=== PATIENT | female | born 1940 | race Caucasian/White ===

== ENCOUNTER → 2017-06-23 11:36 | Outpatient (CLI) | payer MEDICARE, OTHER, SELFPAY ==
[2017-06-23 12:51] LABS: Hematocrit 37.4 % (37-47); Mean Corp Hgb Conc 32.1 g/gl (32-36); Mean Corpuscular Hgb 29.6 pg (27.0-32.0); Mean Corpuscular Volume 92.1 fL (81-99); Mean Platelet Vol. 9.9 fl (6.2-12.0); Platelet Count 216 K/mm3 (150-450); RBC Distribution Width CV 12.8 % (11.6-14.6); RBC Distribution Width SD 42.2 fl (35.1-43.9); Red Blood Count 4.06 M/mm3 (4.2-5.4)
[2017-06-23 12:56] LABS: Scan Indicated on CBC? Y/N NO
[2017-06-28 03:07] LABS: Alternaria alternata <0.10 kU/L (Class 0); Bermuda Grass <0.10 kU/L (Class 0); Bluegrass, Kentucky <0.10 kU/L (Class 0); Cat Hair/Dander, Standard <0.10 kU/L (Class 0); D farinae Mite <0.10 kU/L (Class 0); D pteronyssinus <0.10 kU/L (Class 0); Dog Epithelia <0.10 kU/L (Class 0); Elm, American White <0.10 kU/L (Class 0); Oak, White <0.10 kU/L (Class 0); Plantain, English <0.10 kU/L (Class 0); Ragweed, Short/Common <0.10 kU/L (Class 0)
[2017-06-28 05:07] LABS: Aspirgillus flavus Negative (Neg:<1:1); Aspirgillus fumigatus Negative (Neg:<1:1); Aspirgillus niger Negative (Neg:<1:1)
[2017-06-28 10:27] LABS: Mouse Urine <0.10 kU/L (Class 0)
[2017-06-28 11:04] LABS: Immunoglobulin E 121 IU/mL (0-100)
== END ==
PROVIDERS: Family Provider Family Medicine; PCP Family Medicine; Visit Provider Nurse Practitioner Acute Care
DX: J40 Bronchitis, not specified as acute or chronic (principal); R06.02 Shortness of breath; R05 Cough
CPT/HCPCS: 36415; 82785; 85027; 86003; 86606

== ENCOUNTER 2018-05-03 16:09 | Inpatient (IN) | payer MEDICARE, OTHER, SELFPAY ==
[2018-04-28 10:35] VITALS: BMI 40.5
[2018-05-03] VITALS (10 sets, daily range): BP systolic 157–181; BP diastolic 68–107; PULSE 67–85; RESP 14–24; TEMP 36.6–37.1; O2SAT 95–99; BMI 40.6; BMI 40.1; BMI 40.2
--- NOTE | 2018-05-03 17:12 | RAD_ITS ---
STUDY: X-RAY CHEST REASON FOR EXAM: Female, 77 years old. Cough TECHNIQUE: PA and lateral views of the chest. COMPARISON: 03/29/2016 FINDINGS: EKG leads overlie the chest stable appearance of a left subclavian pacemaker The lungs are clear and expanded. There is no demonstrated pleural abnormality. Normal size heart. Normal mediastinum and massiel. Normal visualized pulmonary arteries. Normal visualized aortic arch and descending thoracic aorta. There are diffuse degenerative changes of the visualized thoracic spine. Normal visualized ribs, clavicles, and shoulders. There is no demonstrated abnormality of the visualized soft tissue structures of the upper abdomen. RAD/Chest PA and Lateral IMPRESSION: No acute pulmonary process Electronically Signed: Myles Nichole MD at 19:20 EST , Service support ,
--- NOTE | 2018-05-03 17:12 | EKG12_ITS ---
Test Reason : SOB Blood Pressure : / mmHG Vent. Rate : 060 BPM Atrial Rate : 300 BPM P-R Int : 212 ms QRS Dur : 090 ms QT Int : 410 ms P-R-T Axes : -22 -27 030 degrees QTc Int : 410 ms Atrial-paced rhythm with prolonged AV conduction Voltage criteria for left ventricular hypertrophy Abnormal ECG Confirmed by CHACORTA WORKMAN, PER ([id number]), managing editor DARREN SEE ([id number] on 05/05/2018 2:26:07 PM Referred By: NIHARIKA Confirmed By:PER WHATLEY MD
[2018-05-03] MEDS: Ipratropium/Albuterol Sulfate 3 ML AMPUL.NEB INHALATION ×2 (17:32→23:35)
[2018-05-03] MEDS: Albuterol 2.5 MG/3 ML VIAL.NEB. INHALATION ×3 (17:32→20:25)
[2018-05-03 17:48] LABS: Anion Gap 9 (5-15); BUN 21 mg/dL (7-18); BUN/Creat Ratio 26.2 RATIO (10-20); Chloride 101 mmol/L (98-107); EST Glomerular Filtration Rate 74 mL/min (>60); Est Glom Filt Rate - Afr Amer 90 mL/min (>60); Estimated Creatinine Clearance 56.88 ml/min; Glucose 121 mg/dL (74-106); Potassium 4.1 mmol/L (3.5-5.1); Sodium Level 137 mmol/L (136-145)
[2018-05-03] MEDS: MethylPREDNISolone 125 MG/2 ML Vial IV (18:48)
[2018-05-03 19:01] LABS: Absolute Neutrophil Count 5.2 X10^3/uL (2.0-7.7); Basophil# 0.02 X10^3/uL; Basophil% 0.3 % (0-1); Hematocrit 38.5 % (37-47); Hemoglobin 12.3 g/dl (12.0-15.0); Lymphocyte % 13.7 % (19-41); Mean Corp Hgb Conc 31.9 g/gl (32-36); Mean Corpuscular Hgb 29.4 pg (27.0-32.0); Mean Corpuscular Volume 92.1 fL (81-99); Mean Platelet Vol. 9.7 fl (6.2-12.0); Monocyte# 0.37 X10^3/uL; Monocyte% 5.6 % (0-10); Neutrophil # 5.23 X10^3/uL (2.7-7.7); Neutrophil % 79.3 % (47-70); POSITIVE COUNT NO; POSITIVE DIFFERENTIAL NO; POSITIVE MORPHOLOGY NO; Platelet Count 193 K/mm3 (150-450); RBC Distribution Width CV 13.2 % (11.6-14.6); RBC Distribution Width SD 43.5 fl (35.1-43.9); Red Blood Count 4.18 M/mm3 (4.2-5.4); White Blood Count 6.6 K/mm3 (4.4-11.0)
--- NOTE | 2018-05-03 20:11 | ED.DCSUM_ITS ---
- ER Visit Summary Date of Service: 05/03/18 Chief Complaint: Cold symptoms, back pain History of Present Illness: The patient is a 77 F with URI symptoms for the past week. She was seen by her PCP last Tuesday given prednisone and Augmentin. She finished the prednisone today. She is using her inhaler every 4 hours. States she is now developed right shoulder pain whenever she coughs and continues to feel quite short of breath with wheezing. She brings up mild sputum with her cough. She denies fever or chills. Physical Examination: Blood pressure is 171/103, otherwise vitals normal. Patient sitting upright in bed. Head neck examination grossly unremarkable. Heart is regular. Lung sounds with expiratory wheezes and rales throughout. Abdomen is soft nontender. Lower external examination was 2+ bilateral edema that is symmetric. Test Results: Two-view chest x-ray shows no acute process. EKG is paced at [address] change. CBC normal. Chemistry studies unremarkable. Emergency Department Course and Treatment: Patient is given Solu-Medrol cycle of aerosols. On repeat evaluation she has continued wheezes and rales/rhonchi throughout. At this time she will require admission for [id number] breathing treatments and steroids. I did review a previous visit when she had similar symptoms and did well with Levaquin. She will be given a dose of p.o. Levaquin at this time as well. Treatment Plan: [] Disposition: Admit Impression: Bronchitis with asthma exacerbation This note was generated with [employer] dictation software. It may contain incorrect words, spelling, and punctuation that were not noted in review of the chart prior to signing ED Disposition - Plan for ED Patient: Chief Complaint: Cold Sx Referrals: Gil Wiseman MD [Primary Care Provider] -
--- NOTE | 2018-05-03 20:33 | PCM.HP.STD ---
Problem List (1) Acute asthma exacerbation Status: Acute Qualifiers: Asthma severity: moderate Asthma persistence: persistent Qualified Code(s): J45.41 - Moderate persistent asthma with (acute) exacerbation History of Present Illness Date of Admission: 05/03/18 Chief Complaint: Cold symptoms and wheezing The patient is a 77 year old F who presented with 9-day history of cold symptoms and wheezing. Patient reports chest congestion. She saw her PCP and she was given prednisone. She used the last day of the prednisone on the morning of her admission. Also patient stated that she was given amoxicillin that she is taking 5 out 10 days. She reports that amoxicillin was given for sinusitis. Associated with her symptoms is a postnasal drip; rhinorrhea; productive cough with yellow thick sputum. Also patient has shortness of breath with exertion. 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 Past Medical History Past Medical History (Chronic Problems): Chronic Problems (Last Reviewed 05/03/18 @ 23:52 by Saurabh Apple MD) Allergic rhinitis (Chronic) Asthma (Chronic) Sinusitis (Chronic) Medical History: Medical History (Last Reviewed 05/04/18 @ 02:32 by Saurabh Apple MD) Acute asthma exacerbation (Acute) J45.901 Shortness of breath (Acute) R06.02 Bronchitis (Acute) J40 Acute back pain with sciatica M54.40 Bradycardia R00.1 Hemorrhoids K64.9 Postnasal drip R09.82 SVT (supraventricular tachycardia) I47.1 Sick sinus syndrome I49.5 Sinus pain J34.89 Sinusitis J32.9 Asthma J45.909 Cardiac pacemaker in situ Z95.0 Chronic cough R05 Essential hypertension I10 GERD (gastroesophageal reflux disease) K21.9 Hyperlipidemia E78.5 Osteoarthrosis M19.90 Overweight E66.3 Seasonal allergies J30.2 Syncope R55 Vitamin D deficiency E55.9 Allergies grass pollen Allergy (Mild, Verified 05/03/18 16:13) Other - sneezing and congestion mold Allergy (Mild, Verified 05/03/18 16:13) Other - sneezing iodine contrast Allergy (Intermediate, Uncoded 05/03/18 16:13) Other - hypotension sodium pentothal Allergy (Intermediate, Uncoded 05/03/18 16:13) Other - tongue numb ANTIBIOTIC Adverse Reaction (Uncoded 05/03/18 16:13) Upset Stomach Home Medications: Ambulatory Orders Medication Instructions Recorded Albuterol Aerosols [Ventolin 2.5 mg INHALATION Q6HWA.RT 30 Days 03/30/16 Aerosols] vial.neb. cholecalciferol (vitamin D3) 5,000 5,000 unit PO DAILY 05/06/17 unit capsule omeprazole 20 mg capsule,delayed 20 mg PO DAILY 05/06/17 release albuterol sulfate HFA 90 1 - 2 puff INHALATION Q4H PRN PRN 08/31/17 mcg/actuation aerosol inhaler #1 device amoxicillin 875 mg-potassium 1 tab PO BID #20 tab 04/28/18 clavulanate 125 mg tablet Budesonide/Formoterol 160/4.5 2 puff PO BID 05/03/18 [Symbicort 160/4.5 Mcg Inhaler (SP)] Gabapentin [Neurontin] 800 mg PO BID 05/03/18 Lisinopril [Zestril] 10 mg PO DAILY 05/03/18 Oxybutynin Chloride [Ditropan Xl] 10 mg PO DAILY 05/03/18 Prednisone 10 mg PO DAILY 05/03/18 Prednisone 60 mg PO DAILY 05/03/18 Surgical History: Surgical History (Last Reviewed 05/04/18 @ 02:32 by Saurabh Apple MD) History of colonoscopy Z98.890 w/ or w/o brsh spec History of esophagogastroduodenoscopy (EGD) Z98.890 w/ or w/o brush/ wash 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 S/P placement of cardiac pacemaker Z95.0 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 Total knee replacement status Z96.659 right Surgical History: appendectomy Lives: Spouse/ Significant Other Smoking Status: Never smoker - *Family History Maternal Family History: Family History (Last Reviewed 05/04/18 @ 02:32 by Saurabh Apple MD) Mother Heart disease Hypertension Myocardial infarction Father Heart disease Myocardial infarction Sister Diabetes Heart disease History Items: No pertinent history Paternal Family History: Family History (Last Reviewed 05/04/18 @ 02:32 by Saurabh Apple MD) Mother Heart disease Hypertension Myocardial infarction Father Heart disease Myocardial infarction Sister Diabetes Heart disease History Items: No pertinent history Review of Systems Constitutional: Reports: Anorexia. Denies: Chills, Fever, Weight Change HEENT: Reports: Post Nasal Drip, Sinus Congestion, Sinus Drainage. Denies: Head Aches Cardiovascular: Denies: Chest Pain, Palpitations Respiratory: Reports: Cough, Shortness of breath upon exertion, Sputum production. Denies: Shortness of breath at rest Gastrointestinal: Denies: Abdominal Pain, Nausea, Vomiting Genitourinary: Denies: Dysuria Musculoskeletal: Denies: Joint Pain, Joint Tenderness Skin: Denies: Rash, Wounds Neurological: Denies: Numbness, Tingling, Focal weakness Psychiatric: Denies: Anxiety, Depression, Homicidal Ideations, Suicidal Ideations Hematologic/ Lymphatic: Denies: Easy Bruising, Easy Bleeding VTE Information - Inpt Only VTE Present on Admission: No VTE Mechan Device Prophylaxis: None VTE Pharm Prophylaxis ordered?: Yes - Physical Exam General: Alert, Oriented x3, Cooperative HEENT: Atraumatic, PERRLA, EOMI, Normocephalic Neck: Supple, No JVD, Negative Carotid Bruits Lungs: Rhonchi - Moderate intensity, Tachypneic, Wheezes - Moderate Cardiovascular: No murmurs Abdomen: Bowel Sounds Present, Soft, Non Tender Extremities: No edema, Capillary Refill Less than 3 Seconds Skin: No rashes, No breakdown Musculoskeletal: No Tenderness to Palpation of Joints or Extremities Neurological: Neuro grossly intact Psych/Mental Status: Normal Affect, Appropriate Vital Signs Temp Pulse Resp BP Pulse Ox 97.8 F 76 15 177/82 H 96 05/03/18 19:04 05/03/18 19:04 05/03/18 19:04 05/03/18 19:04 05/03/18 19:04 Oxygen Delivery Method Room Air Weight: 114.305 kg Body Mass Index (BMI) 40.6 Laboratory Tests Past 24 Hrs 05/03/18 05/03/18 17:25 17:25 WBC 6.6 RBC 4.18 L Hgb 12.3 Hct 38.5 MCV 92.1 MCH 29.4 MCHC 31.9 L RDW 13.2 RDW Differential 43.5 Plt Count 193 MPV 9.7 Immature Gran % (Auto) 1.100 H Neut % (Auto) 79.3 H Lymph % (Auto) 13.7 L [place] % (Auto) 5.6 Eos % (Auto) 0.0 Baso % (Auto) 0.3 Absolute Neuts (auto) 5.2 Absolute Lymphs (auto) 0.90 Total Counted Not Reportable Sodium 137 Potassium 4.1 Chloride 101 Carbon Dioxide 27.0 Anion Gap 9 BUN 21 H Creatinine 0.80 Estim Creat Clear Calc 56.88 Est GFR (MDRD) Af Amer 90 Est GFR (MDRD) Non-Af 74 BUN/Creatinine Ratio 26.2 H Glucose 121 H Calcium 9.0 Assessment/Plan All Active Problems (Last Reviewed 05/03/18 @ 23:52 by Saurabh Apple MD) Acute asthma exacerbation (Acute) Shortness of breath (Acute) Bronchitis (Acute) The patient is a 77 year old F who presented with 9-day history of cold symptoms and wheezing after failing outpatient treatment with prednisone; and after taking half course of her outpatient antibiotics consistent with likely asthmatic bronchitis. Acute asthmatic bronchitis Patient received Levaquin at emergency department. We will continue Levaquin at this time. Patient received Solu-Medrol against the emergency department. Solu-Medrol continued. DuoNeb scheduled and albuterol as needed. Continue home inhaled steroids. Flonase ordered. Mucinex ordered. We will order comprehensive respiratory pathogen panel. Incentive spirometer and a cappella ordered. Hypertension On admission her blood pressure was not within goal. Home lisinopril continued Hydralazine as needed. GERD Protonix continued. Overactive bladder Detrol continued Neuropathy Gabapentin continued. Vitamin D deficiency Vitamin D continued. DVT prophylaxis Subcutaneous heparin. Code Visit Inpatient E&M: 90540 Init Hosp L3
[2018-05-03] MEDS: levoFLOXacin 750 MG Tablet PO (20:37)
[2018-05-03] MEDS: Fluticasone 0.05% 1 SPRAY NASAL.SRY NASAL (23:53)
[2018-05-03] MEDS: Heparin Injection (Vial) 5,000 UNIT/ML VIAL 5000 UNIT SC (23:54)
[2018-05-03] MEDS: guaiFENesin 1,200 MG Tablet 1200 MG PO (23:55)
[2018-05-03] MEDS: Gabapentin 400 MG Capsule 800 MG PO (23:55)
[2018-05-04] VITALS (12 sets, daily range): BP systolic 157–168; BP diastolic 67–80; PULSE 71–87; RESP 16–20; TEMP 36.5–37.1; O2SAT 96–97
[2018-05-04] MEDS: Ipratropium/Albuterol Sulfate 3 ML AMPUL.NEB INHALATION ×6 (02:52→23:03)
[2018-05-04 06:41] LABS: Absolute Lymphocyte Count 0.82 X10^3/ul (0.83-4.51); Basophil# 0.01 X10^3/uL; Basophil% 0.2 % (0-1); Hematocrit 36.9 % (37-47); Hemoglobin 11.5 g/dl (12.0-15.0); Lymphocyte # 0.82 X10^3/ul (4.0); Lymphocyte % 13.3 % (19-41); Mean Corp Hgb Conc 31.2 g/gl (32-36); Mean Corpuscular Hgb 28.8 pg (27.0-32.0); Mean Corpuscular Volume 92.5 fL (81-99); Mean Platelet Vol. 9.9 fl (6.2-12.0); Monocyte# 0.25 X10^3/uL; Monocyte% 4.1 % (0-10); Neutrophil # 5.01 X10^3/uL (2.7-7.7); Neutrophil % 81.1 % (47-70); Platelet Count 191 K/mm3 (150-450); RBC Distribution Width CV 13.2 % (11.6-14.6); RBC Distribution Width SD 43.2 fl (35.1-43.9); Red Blood Count 3.99 M/mm3 (4.2-5.4); White Blood Count 6.2 K/mm3 (4.4-11.0)
[2018-05-04 06:46] LABS: POSITIVE COUNT NO; POSITIVE DIFFERENTIAL NO; POSITIVE MORPHOLOGY NO
[2018-05-04 07:14] LABS: Anion Gap 13 (5-15); BUN 18 mg/dL (7-18); BUN/Creat Ratio 19.2 RATIO (10-20); Calcium,Total 9.4 mg/dL (8.5-10.1); Chloride 100 mmol/L (98-107); Creatinine, Serum 0.94 mg/dL (0.55-1.02); EST Glomerular Filtration Rate 62 mL/min (>60); Est Glom Filt Rate - Afr Amer 75 mL/min (>60); Estimated Creatinine Clearance 48.41 ml/min; Glucose 185 mg/dL (74-106); Sodium Level 138 mmol/L (136-145)
[2018-05-04] MEDS: Albuterol 2.5 MG/3 ML VIAL.NEB. INHALATION (09:12)
[2018-05-04] MEDS: Lisinopril 10 MG Tablet PO (10:13)
[2018-05-04] MEDS: Gabapentin 400 MG Capsule 800 MG PO ×2 (10:13→22:07)
[2018-05-04] MEDS: Pantoprazole Sodium 20 MG Tablet PO (10:13)
[2018-05-04] MEDS: Heparin Injection (Vial) 5,000 UNIT/ML VIAL 5000 UNIT SC ×2 (10:13→22:07)
[2018-05-04] MEDS: Tolterodine Tartrate 2 MG CAP.SA PO (10:14)
[2018-05-04] MEDS: guaiFENesin 1,200 MG Tablet 1200 MG PO ×2 (10:14→22:07)
[2018-05-04] MEDS: Fluticasone 0.05% 1 SPRAY NASAL.SRY NASAL ×2 (10:15→22:07)
--- NOTE | 2018-05-04 10:50 | CASEMGMT ---
ADRIANA CM Assessment Presentation: pt presented with 9 day history of cold symptoms and wheezing. Outpt treatment of amoxicillin for sinusitis. PCP: [facility]erred [facility]acy: [facility] Insurance: [facility] A/B Prescription Benefit: yes LNOK: Living Arrangements: Lives with in two story home. Pt states she was independent with ADL's. No Home Health. Denies discharge needs. Transportation: drives DME/HHC: uses cane @ times, has walker DC PLAN: Home
[2018-05-04] MEDS: 0.9% NaCl Peripheral Flush Adult/Peds IV ×2 (13:17→22:12)
--- NOTE | 2018-05-04 14:07 | CHAPLAIN ---
Type of Pastoral Visit _x__ Initial Visit ___ Follow-up Visit ___ On-call Visit ___ General Patient Visit ___ Spiritual Assessment ___ Family Conference ___ Bereavement ___ Rapid Response ___ Code Blue ___ Other (describe below) Pastoral Care Referral From _x__ Patient ___ Family ___ Nurse ___ Physician ___ Riding Coach ___ Jewellery Designer ___ Other (describe below) Sacrament/Intervention _x__ Active listening ___ Anointing ___ Tenriism ___ Bereavement ___ Communion ___ Page exploration ___ _x__ Life review _x__ Prayer ___ Reconciliation ___ Sacrament of Sick _x__ Supportive presence ___ Wedding ___ Other (describe below) Pastoral Comments
--- NOTE | 2018-05-04 16:33 | PN_ITS ---
Subjective: Still having some audible wheezing, she is on room air does not require oxygen at this time - Physical Exam General: Alert, Oriented x3, Cooperative, No apparent distress, Well developed, Well nourished HEENT: Atraumatic, PERRLA, EOMI, Normocephalic Oral: Moist Mucosa Neck: Supple, Trachea Midline, Thyroid Normal Size and Texture Lungs: Normal air movement, No rhonchi, No rales, Wheezes - Expiratory wheezes bilaterally are noted Cardiovascular: Regular rate, Regular Rhythm, Normal S1, Normal S2, No murmurs, No Ectopic Activity, PMI Normal, No rub noted, No Gallop Abdomen: Bowel Sounds Present, Soft, Non Tender, Non-Distended, No hernias noted Extremities: No clubbing, No cyanosis, No edema, Capillary Refill Less than 3 Seconds Skin: No rashes, No breakdown Musculoskeletal: No Tenderness to Palpation of Joints or Extremities Neurological: Cranial nerves II-XII grossly intact, Neuro grossly intact, Sensory exam intact to light touch and pain, Coordination normal Psych/Mental Status: Normal Affect, Appropriate, Alert and oriented to time, place, person, mood and affect Vital Signs Temp Pulse Resp BP Pulse Ox 97.7 F L 71 18 168/71 H 97 05/04/18 14:07 05/04/18 15:21 05/04/18 15:21 05/04/18 14:07 05/04/18 14:07 Oxygen Delivery Method Room Air Weight: 112.9 kg Body Mass Index (BMI) 40.1 Intake and Output for Last 24 Hours 05/02/18 05/03/18 05/04/18 23:59 23:59 23:59 Intake Total 810 / 810 Balance 810 / 810 Microbiology Past 72 Hours 05/03/18 23:35 Respiratory Panel (PCR) - Final Mucosa - Nasopharyngeal Influenza A (Subtype H3) Laboratory Tests Past 24 Hrs 05/03/18 05/03/18 05/04/18 17:25 17:25 06:06 WBC 6.6 6.2 RBC 4.18 L 3.99 L Hgb 12.3 11.5 L Hct 38.5 36.9 L MCV 92.1 92.5 MCH 29.4 28.8 MCHC 31.9 L 31.2 L RDW 13.2 13.2 RDW Differential 43.5 43.2 Plt Count 193 191 MPV 9.7 9.9 Immature Gran % (Auto) 1.100 H 1.300 H Neut % (Auto) 79.3 H 81.1 H Lymph % (Auto) 13.7 L 13.3 L [place] % (Auto) 5.6 4.1 Eos % (Auto) 0.0 0.0 Baso % (Auto) 0.3 0.2 Absolute Neuts (auto) 5.2 5.0 Absolute Lymphs (auto) 0.90 0.82 L Total Counted Not Reportable Not Reportable Sodium 137 Potassium 4.1 Chloride 101 Carbon Dioxide 27.0 Anion Gap 9 BUN 21 H Creatinine 0.80 Estim Creat Clear Calc 56.88 Est GFR (MDRD) Af Amer 90 Est GFR (MDRD) Non-Af 74 BUN/Creatinine Ratio 26.2 H Glucose 121 H Calcium 9.0 05/04/18 06:06 WBC RBC Hgb Hct MCV MCH MCHC RDW RDW Differential Plt Count MPV Immature Gran % (Auto) Neut % (Auto) Lymph % (Auto) [place] % (Auto) Eos % (Auto) Baso % (Auto) Absolute Neuts (auto) Absolute Lymphs (auto) Total Counted Sodium 138 Potassium 4.0 Chloride 100 Carbon Dioxide 25.0 Anion Gap 13 BUN 18 Creatinine 0.94 Estim Creat Clear Calc 48.41 Est GFR (MDRD) Af Amer 75 Est GFR (MDRD) Non-Af 62 BUN/Creatinine Ratio 19.2 Glucose 185 H Calcium 9.4 Medical Necessity - Tobacco Use Smoking Status: Never smoker Assessment/Plan All Active Problems (Last Reviewed 05/04/18 @ 02:32 by Saurabh Apple MD) Acute asthma exacerbation (Acute) Shortness of breath (Acute) Bronchitis (Acute) #1 acute tracheobronchitis secondary to influenza A-continue Tamiflu, continue aerosol treatments, IV corticosteroids, I will change Levaquin to p.o. #2 exacerbation of asthma secondary to #1-patient is on IV corticosteroids presently, continue aerosol treatments #3 hypertension #4 obesity #5 neuropathy Code Visit Inpatient E&M: 66111 Subs Hosp L2
[2018-05-04] MEDS: Oseltamivir Phosphate 30 MG Capsule PO (22:08)
[2018-05-05] VITALS (11 sets, daily range): BP systolic 145–160; BP diastolic 67–82; PULSE 75–100; RESP 18–24; TEMP 36.6–36.8; O2SAT 95–97
[2018-05-05] MEDS: Ipratropium/Albuterol Sulfate 3 ML AMPUL.NEB INHALATION ×6 (02:51→23:48)
[2018-05-05] MEDS: levoFLOXacin 500 MG Tablet PO (05:43)
[2018-05-05] MEDS: 0.9% NaCl Peripheral Flush Adult/Peds IV ×2 (05:43→14:56)
[2018-05-05] MEDS: Gabapentin 400 MG Capsule 800 MG PO ×2 (09:51→22:33)
[2018-05-05] MEDS: Fluticasone 0.05% 1 SPRAY NASAL.SRY NASAL ×2 (09:52→22:34)
[2018-05-05] MEDS: guaiFENesin 1,200 MG Tablet 1200 MG PO ×2 (09:52→22:33)
[2018-05-05] MEDS: Tolterodine Tartrate 2 MG CAP.SA PO (09:52)
[2018-05-05] MEDS: Pantoprazole Sodium 20 MG Tablet PO (09:52)
[2018-05-05] MEDS: Oseltamivir Phosphate 30 MG Capsule PO ×2 (09:53→22:33)
[2018-05-05] MEDS: Lisinopril 10 MG Tablet PO (09:53)
[2018-05-05] MEDS: Heparin Injection (Vial) 5,000 UNIT/ML VIAL 5000 UNIT SC ×2 (09:53→22:33)
--- NOTE | 2018-05-05 15:42 | PCM.PROGNOTE ---
Subjective: Patient was seen and examined today, she still having marked expiratory wheezes bilaterally. - Physical Exam General: Alert, Oriented x3, Cooperative, No apparent distress, Well developed, Well nourished HEENT: Atraumatic, PERRLA, EOMI, Normocephalic Oral: Moist Mucosa Neck: Supple, Trachea Midline, Thyroid Normal Size and Texture Lungs: Wheezes - Expiratory wheezes are noted bilaterally Cardiovascular: Regular rate, Regular Rhythm, Normal S1, Normal S2, No murmurs, PMI Normal, No rub noted, No Gallop Abdomen: Bowel Sounds Present, Soft, Non Tender, Non-Distended Extremities: No edema, Capillary Refill Less than 3 Seconds Skin: No rashes, No breakdown Musculoskeletal: No Tenderness to Palpation of Joints or Extremities Neurological: Cranial nerves II-XII grossly intact, Neuro grossly intact, Muscle tone normal, Sensory exam intact to light touch and pain, Coordination normal Psych/Mental Status: Normal Affect, Appropriate, Alert and oriented to time, place, person, mood and affect Vital Signs Temp Pulse Resp BP Pulse Ox 97.9 F 100 20 H 145/79 H 95 05/05/18 14:54 05/05/18 14:54 05/05/18 14:54 05/05/18 14:54 05/05/18 14:54 Oxygen Delivery Method Room Air Weight: 112.9 kg Body Mass Index (BMI) 40.1 Intake and Output for Last 24 Hours 05/03/18 05/04/18 05/05/18 23:59 23:59 23:59 Intake Total 810 / 810 Balance 810 / 810 Microbiology Past 72 Hours 05/03/18 23:35 Respiratory Panel (PCR) - Final Mucosa - Nasopharyngeal Influenza A (Subtype H3) Medical Necessity - Tobacco Use Smoking Status: Never smoker Assessment/Plan All Active Problems (Last Reviewed 05/04/18 @ 02:32 by Saurabh Apple MD) Acute asthma exacerbation (Acute) Shortness of breath (Acute) Bronchitis (Acute) #1 acute tracheobronchitis secondary to influenza A-continue Tamiflu, continue aerosol treatments, IV corticosteroids, patient currently on p.o. Levaquin #2 hypertension #3 obesity #4 neuropathy I talked briefly with pulmonary medicine today, I discussed her PFTs which she had done in the past and her bronchial provocation test that was done in 2017, the provocation test was negative, the PFT showed a mild restrictive defect. Pulmonary medicine does not feel that the patient has asthma based on this information but may have an element of CHF. I will order an echocardiogram on the patient for tomorrow Code Visit Inpatient E&M: 68069 Subs Hosp L2
[2018-05-05 17:05] LABS: Anion Gap 10 (5-15); BUN 30 mg/dL (7-18); Calcium,Total 9.4 mg/dL (8.5-10.1); Chloride 100 mmol/L (98-107); Creatinine, Serum 1.11 mg/dL (0.55-1.02); EST Glomerular Filtration Rate 51 mL/min (>60); Est Glom Filt Rate - Afr Amer 62 mL/min (>60); Glucose 171 mg/dL (74-106); Potassium 4.3 mmol/L (3.5-5.1); Sodium Level 135 mmol/L (136-145)
[2018-05-05 20:01] LABS: BNP,B-Type NATRIURETIC PEPTIDE 24.1 pg/mL (0-100)
[2018-05-06] VITALS (10 sets, daily range): BP systolic 125–154; BP diastolic 45–78; PULSE 66–101; RESP 18–22; TEMP 36.3–36.7; O2SAT 97–99
[2018-05-06] MEDS: Ipratropium/Albuterol Sulfate 3 ML AMPUL.NEB INHALATION ×4 (03:40→22:35)
[2018-05-06] MEDS: levoFLOXacin 500 MG Tablet PO (05:30)
[2018-05-06] MEDS: 0.9% NaCl Peripheral Flush Adult/Peds IV ×3 (05:30→22:21)
[2018-05-06 07:43] LABS: Anion Gap 9 (5-15); BUN 27 mg/dL (7-18); BUN/Creat Ratio 28.6 RATIO (10-20); Calcium,Total 9.1 mg/dL (8.5-10.1); Chloride 99 mmol/L (98-107); Creatinine, Serum 0.94 mg/dL (0.55-1.02); EST Glomerular Filtration Rate 61 mL/min (>60); Est Glom Filt Rate - Afr Amer 74 mL/min (>60); Estimated Creatinine Clearance 48.41 ml/min; Glucose 165 mg/dL (74-106); Potassium 4.2 mmol/L (3.5-5.1); Sodium Level 135 mmol/L (136-145)
[2018-05-06] MEDS: guaiFENesin 1,200 MG Tablet 1200 MG PO (08:53)
[2018-05-06] MEDS: Fluticasone 0.05% 1 SPRAY NASAL.SRY NASAL ×2 (08:53→22:20)
[2018-05-06] MEDS: Heparin Injection (Vial) 5,000 UNIT/ML VIAL 5000 UNIT SC ×2 (08:53→22:20)
[2018-05-06] MEDS: Oseltamivir Phosphate 30 MG Capsule PO ×2 (08:53→22:21)
[2018-05-06] MEDS: Gabapentin 400 MG Capsule 800 MG PO ×2 (08:54→22:20)
[2018-05-06] MEDS: Tolterodine Tartrate 2 MG CAP.SA PO (08:54)
[2018-05-06] MEDS: Lisinopril 10 MG Tablet PO (08:54)
[2018-05-06] MEDS: Pantoprazole Sodium 20 MG Tablet PO (08:54)
--- NOTE | 2018-05-06 09:04 | ECHOCS_ITS ---
Reason For Study: SOB Procedure This was a 2D Doppler, Color Flow transthoracic echocardiogram. Contrast injection was performed. Exam performed portable in patient room. Left Ventricle Normal size and thickness. The estimated ejection fraction is 65 %. Stage 1 diastolic dysfunction. No regional wall motion abnormalities noted. Right Ventricle Normal size and thickness. Normal systolic function. Atria Normal left atrium. Normal right atrium. Normal atrial septum. Mitral Valve The mitral valve is structurally normal. No prolapse or stenosis seen. Tricuspid Valve Normal tricuspid valve. Trivial tricuspid valve insufficiency. Right ventricular systolic pressure estimated to be 35 mmHg. Aortic Valve Trisinus/trileaflet aortic valve. Pulmonic Valve Normal pulmonic valve. Great Vessels Normal aortic root. Normal arch. Normal inferior vena cava. Inferior vena cava collapse with sniff. Pericardium/Pleural No pericardial effusion. Medication Definity0.3ml given slow IV push to enhance endocardial definition. MMode/2D Measurements & Calculations LVIDd: 4.8 cm IVSd: 1.2 cm Ao root diam: 3.2 cm LVIDs: 2.3 cm LVPWd: 1.1 cm RVDd: 3.6 cm FS: 52.0 % LAV(MOD-bp): 51.5 ml LVAd ap4: 31.3 cm2 SV(MOD-sp4): 68.7 ml LAV(MOD-bp) Indexed: 23.6 ml/m2 EDV(MOD-sp4): 110.3 ml LAV(MOD-sp2): 37.9 ml EDV(sp4-el): 114.5 ml LAV(MOD-sp4): 57.2 ml LVAs ap4: 17.7 cm2 ESV(MOD-sp4): 41.7 ml ESV(sp4-el): 42.1 ml EF(MOD-sp4): 62.2 % EF(sp4-el): 63.2 % SV(sp4-el): 72.4 ml LA A4 area: 21.1 cm2 LA dimension(2D): 3.2 cm RA A4 area: 13.6 cm2 Doppler Measurements & Calculations MV A max franky: 111.7 cm/sec Lat Peak E' Franky: 7.5 cm/sec Med Peak E' Franky: 5.8 cm/sec MV P1/2t max franky: 74.7 cm/sec Ao V2 max: 192.1 cm/sec LV V1 max: 111.7 cm/sec Ao max P.8 mmHg LV V1 max P.0 mmHg Ao V2 mean: 133.5 cm/sec Ao mean P.8 mmHg Ao V2 VTI: 38.5 cm PA V2 max: 97.5 cm/sec TR max franky: 273.3 cm/sec TR max P.9 mmHg Interpretation Summary The estimated ejection fraction is 65 %. Stage 1 diastolic dysfunction. Trivial tricuspid valve insufficiency. Right ventricular systolic pressure estimated to be 35 mmHg. The study was technically difficult. There is no comparison study available. Contrast injection was performed. Ordering Physician: Daniel Bee Referring Physician: Oumar Wiseman Performed By: Juliette Ibrahim, KATRINA, RVT
--- NOTE | 2018-05-06 17:15 | PCM.PROGNOTE ---
Subjective: Patient was seen and examined today, she still having marked expiratory wheezes. I did not echocardiogram on her today which showed a normal EF and no valvular heart disease. Patient's beta natruretic peptide was normal. - Physical Exam General: Alert, Oriented x3, Cooperative, No apparent distress, Well developed, Well nourished HEENT: Atraumatic, PERRLA, EOMI, Normocephalic Oral: Moist Mucosa Neck: Supple, Trachea Midline, Thyroid Normal Size and Texture Lungs: Normal air movement, Wheezes - Expiratory wheezes are noted bilaterally Cardiovascular: Regular rate, No murmurs Abdomen: Bowel Sounds Present, Soft, Non Tender, Non-Distended Extremities: No clubbing, No cyanosis, No edema, Capillary Refill Less than 3 Seconds Skin: No rashes, No breakdown Musculoskeletal: No Tenderness to Palpation of Joints or Extremities Neurological: Cranial nerves II-XII grossly intact, Neuro grossly intact, Sensory exam intact to light touch and pain, Coordination normal Psych/Mental Status: Normal Affect, Appropriate, Alert and oriented to time, place, person, mood and affect Vital Signs Temp Pulse Resp BP Pulse Ox 98.0 F 90 20 H 139/78 H 97 05/06/18 14:05 05/06/18 14:05 05/06/18 14:05 05/06/18 14:05 05/06/18 14:05 Oxygen Delivery Method Room Air Weight: 112.9 kg Body Mass Index (BMI) 40.1 Intake and Output for Last 24 Hours 05/04/18 05/05/18 05/06/18 23:59 23:59 23:59 Intake Total 810 / 810 1680 / 1680 Balance 810 / 810 1680 / 1680 Microbiology Past 72 Hours 05/03/18 23:35 Respiratory Panel (PCR) - Final Mucosa - Nasopharyngeal Influenza A (Subtype H3) Laboratory Tests Past 24 Hrs 05/05/18 05/06/18 19:02 06:14 Sodium 135 L Potassium 4.2 Chloride 99 Carbon Dioxide 27.0 Anion Gap 9 BUN 27 H Creatinine 0.94 Estim Creat Clear Calc 48.41 Est GFR (MDRD) Af Amer 74 Est GFR (MDRD) Non-Af 61 BUN/Creatinine Ratio 28.6 H Glucose 165 H Calcium 9.1 B-Natriuretic Peptide 24.1 Medical Necessity - Tobacco Use Smoking Status: Never smoker Assessment/Plan All Active Problems (Last Reviewed 05/04/18 @ 02:32 by Saurabh Apple MD) Acute asthma exacerbation (Acute) Shortness of breath (Acute) Bronchitis (Acute) #1 acute tracheobronchitis secondary to influenza A-continue Tamiflu, continue aerosol treatments, IV corticosteroids, patient currently on p.o. Levaquin #2 hypertension #3 obesity #4 neuropathy Code Visit Inpatient E&M: 14908 Subs Hosp L2
[2018-05-07] MEDS: Ipratropium/Albuterol Sulfate 3 ML AMPUL.NEB INHALATION ×3 (02:07→11:14)
[2018-05-07 02:08] VITALS: PULSE 81; RESP 18
[2018-05-07] MEDS: levoFLOXacin 500 MG Tablet PO (06:21)
[2018-05-07] MEDS: 0.9% NaCl Peripheral Flush Adult/Peds IV (06:22)
[2018-05-07 06:23] VITALS: BP 138/70; PULSE 69; RESP 18; TEMP 36.6; O2SAT 97
[2018-05-07 06:24] VITALS: O2SAT 97
[2018-05-07 07:26] VITALS: PULSE 80; RESP 22
[2018-05-07 08:06] VITALS: BP 143/73; PULSE 91; RESP 20; TEMP 36.5; O2SAT 100
[2018-05-07] MEDS: Tolterodine Tartrate 2 MG CAP.SA PO (08:12)
[2018-05-07] MEDS: Gabapentin 400 MG Capsule 800 MG PO (08:12)
[2018-05-07] MEDS: Lisinopril 10 MG Tablet PO (08:12)
[2018-05-07] MEDS: Pantoprazole Sodium 20 MG Tablet PO (08:12)
[2018-05-07] MEDS: Oseltamivir Phosphate 30 MG Capsule PO (08:12)
--- NOTE | 2018-05-07 10:02 | DCINST_ITS ---
You will use the following diet at home:: No restrictions Your food should be the consistency of: Regular Your liquids should be the consistency of: Regular/Thin Discharge Activity: Return to Normal Activity Weight Bearing Status: Full weight bearing Allergies/Adverse Reactions: Allergies grass pollen Allergy (Mild, Verified 05/03/18 16:13) Other - sneezing and congestion mold Allergy (Mild, Verified 05/03/18 16:13) Other - sneezing iodine contrast Allergy (Intermediate, Uncoded 05/03/18 16:13) Other - hypotension sodium pentothal Allergy (Intermediate, Uncoded 05/03/18 16:13) Other - tongue numb ANTIBIOTIC Adverse Reaction (Uncoded 05/03/18 16:13) Upset Stomach Medications to take at Discharge cholecalciferol (vitamin D3) 5,000 unit capsule 5,000 unit PO DAILY 05/06/17 omeprazole 20 mg capsule,delayed release 20 mg PO DAILY 05/06/17 albuterol sulfate HFA 90 mcg/actuation aerosol inhaler 1 - 2 puff INHALATION Q4H PRN PRN #1 device 08/31/17 Budesonide/Formoterol 160/4.5 [Symbicort 160/4.5 Mcg Inhaler (SP)] 2 puff PO BID 05/03/18 Gabapentin [Neurontin] 800 mg PO BID 05/03/18 Lisinopril [Zestril] 10 mg PO DAILY 05/03/18 Oxybutynin Chloride [Ditropan Xl] 10 mg PO DAILY 05/03/18 Prednisone 10 mg PO DAILY 05/03/18 Albuterol Aerosols [Ventolin Aerosols] 2.5 mg INHALATION Q6HWA.RT 30 Days #120 vial.neb. 05/07/18 Oseltamivir Phosphate [Tamiflu] 30 mg PO BID #4 capsule 05/07/18 The following prescriptions were given: Albuterol Aerosols [Ventolin Aerosols] 2.5 mg INHALATION Q6HWA.RT 30 Days #120 vial.neb. Oseltamivir Phosphate [Tamiflu] 30 mg PO BID #4 capsule Primary Care Physician: Gil Wiseman MD [Primary Care Provider] - Please follow up with your Primary Care Physician in: in 1-2 weeks Test Results: Test results from this visit will be discussed in further detail at your follow- up appointment, if applicable. Please Follow Up With: Shukri Martins, When: as scheduled
[2018-05-07] MEDS: predniSONE 20 MG Tablet 40 MG PO (10:41)
[2018-05-07 11:14] VITALS: PULSE 101; RESP 16
--- NOTE | 2018-05-07 13:07 | DS.PCM_ITS ---
Discharge Date and Diagnosis Date of Admission: 05/03/18 Date of Discharge: 05/07/18 - Primary Discharge Diagnosis #1 acute tracheobronchitis secondary to influenza A #2 bronchospasm secondary to #1 #3 hypertension #4 obesity #5 neuropathy - Secondary Discharge Diagnosis Chronic Problems (Last Reviewed 05/04/18 @ 02:32 by Saurabh Apple MD) Allergic rhinitis (Chronic) Asthma (Chronic) Sinusitis (Chronic) Hospital Course and Treatment Operations: None Procedures: None Summary of Care Provided: The patient is a 77 year old F who was admitted through the emergency room at [facility] was complaints of upper respiratory symptoms for a week. Patient had been taking Augmentin at home along with prednisone that was prescribed by her PCP. Patient complained of shortness of breath and yellow sputum production. Workup in the emergency room included a chest x-ray which showed no acute process, CBC was normal, chemistry studies were unremarkable. On examination, patient was noted to have marked expiratory wheezes bilaterally, pulse ox on room air was above 90%. Patient was admitted to [place] [address] for bronchitis and asthma exacerbation-in talking with the patient however, no definite diagnosis of asthma have been given to the patient and I reviewed the patient's medical records from pulmonary medicine and it appeared unlikely that the patient actually had asthma. Patient tested positive for influenza A subtype H3, she was felt to have tracheobronchitis with bronchospasm, she was treated with aerosol treatments and IV Solu-Medrol as well as Tamiflu and Levaquin. Patient continued to wheeze during her hospitalization but she maintain her pulse ox on ambulation and did not require oxygen. On 05/07/18, patient was seen and examined: On examination she appeared in good health and spirits. Vital signs as documented. Skin warm and dry and without overt rashes. Neck without JVD. Lungs-patient had expiratory wheezes bilaterally . Heart exam notable for regular rhythm, normal sounds and absence of murmurs, rubs or gallops. Abdomen unremarkable and without evidence of organomegaly, masses, or abdominal aortic enlargement. Extremities nonedematous. Neuro: Cranial nerves II through XII are grossly intact, no focal motor deficits were noted, sensation to light touch and pinprick is intact. Psych: Patient is alert and oriented x3, she does not appear anxious or depressed On 05/07/18, patient was seen and examined, she had mild wheezes bilaterally at the time of discharge but it was not felt that she required further hospitalization for treatment, it was felt that she could complete treatment at home. She was discharged in stable condition on that date. - Physical Exam Vital Signs Temp Pulse Resp BP Pulse Ox 97.7 F L 101 H 16 143/73 H 100 05/07/18 08:06 05/07/18 11:14 05/07/18 11:14 05/07/18 08:06 05/07/18 08:06 Oxygen Delivery Method Room Air Weight: 112.9 kg Body Mass Index (BMI) 40.1 Intake and Output for Last 24 Hours 05/05/18 05/06/18 05/07/18 23:59 23:59 23:59 Intake Total 2620 / 2620 461 / 461 Balance 2620 / 2620 461 / 461 Microbiology Past 72 Hours 05/03/18 23:35 Respiratory Panel (PCR) - Final Mucosa - Nasopharyngeal Influenza A (Subtype H3) Discharge Activity: Return to Normal Activity Weight Bearing Status: Full weight bearing Home Medications: Medications to take at Discharge cholecalciferol (vitamin D3) 5,000 unit capsule 5,000 unit PO DAILY 05/06/17 omeprazole 20 mg capsule,delayed release 20 mg PO DAILY 05/06/17 albuterol sulfate HFA 90 mcg/actuation aerosol inhaler 1 - 2 puff INHALATION Q4H PRN PRN #1 device 08/31/17 Budesonide/Formoterol 160/4.5 [Symbicort 160/4.5 Mcg Inhaler (SP)] 2 puff PO BID 05/03/18 Gabapentin [Neurontin] 800 mg PO BID 05/03/18 Lisinopril [Zestril] 10 mg PO DAILY 05/03/18 Oxybutynin Chloride [Ditropan Xl] 10 mg PO DAILY 05/03/18 Prednisone 10 mg PO DAILY 05/03/18 Albuterol Aerosols [Ventolin Aerosols] 2.5 mg INHALATION Q6HWA.RT 30 Days #120 vial.neb. 05/07/18 Oseltamivir Phosphate [Tamiflu] 30 mg PO BID #4 capsule 05/07/18 Following Prescrptions Were Given to Patient: Albuterol Aerosols [Ventolin Aerosols] 2.5 mg INHALATION Q6HWA.RT 30 Days #120 vial.neb. Oseltamivir Phosphate [Tamiflu] 30 mg PO BID #4 capsule Primary Care Physician: Gil Wiseman MD [Primary Care Provider] - Please follow up with your Primary Care Physician in: in 1-2 weeks Please Follow Up With: Shukri Martins DO When: as scheduled Disposition: Home Minutes spent on discharge:: 32 Patient Condition:: Stable Medical Necessity - Tobacco Use Smoking Status: Never smoker Meaningful Use Info Meaningful Use Diagnoses (Choose all that apply): None applicable Code Visit Inpatient E&M: 86716 Disch Hosp
--- NOTE | 2018-05-08 13:07 | CASEMGMT ---
ADRIANA SOW DC PHONE CALL DC DATE: 05-07-2018 DC DISPOSITION: Home STRATA/LACE 04/04 Intro role of CM to patient via phone. Pt states she is still feeling ill and short of breath. She is using her inhaler as prescribed. ADRIANA SOW discussed calling physician today for f/u and to try and get appointment. Pt does not need assistance. ADRIANA SOW also let pt know if symptoms worsen or are unrelieved with albuterol inhaler, recommendation is to return to ER for evaluation. Pt states diagnosis was not on prescription, and she had to pay out of pocket. [facility] and gave dx code listed on chart for acute asthma exacerbation. Per pharmacy they will process and notify patient of outcome. Letha MCGHEE RN ACM
== END 2018-05-07 13:55 | disposition home or self-care (01) | DRG 194 ==
LOC: ED 17:23 → MS2 20:58
PROVIDERS: Admitting Provider Hospitalist; Emergency Provider Emergency Medicine; Family Provider Family Medicine; PCP Family Medicine; Visit Provider Internal Medicine
DX: J10.1 Influenza due to other identified influenza virus with other respiratory manifestations (principal); Z68.41 Body mass index [BMI] 40.0-44.9, adult; N32.81 Overactive bladder; K21.9 Gastro-esophageal reflux disease without esophagitis; E55.9 Vitamin D deficiency, unspecified; G62.9 Polyneuropathy, unspecified; I10 Essential (primary) hypertension; J32.9 Chronic sinusitis, unspecified; E66.9 Obesity, unspecified; J30.9 Allergic rhinitis, unspecified; Z95.0 Presence of cardiac pacemaker; Z79.899 Other long term (current) drug therapy
CPT/HCPCS: 36415; 71046; 80048; 83880; 85025; 87633; 93005; 93306; 94640; 94667; 94668; 97110; 97116; 97161; 97166; 97530; 97802; 99251; 99284; Q9957; A4216; C8929; G0463

== ENCOUNTER 2018-05-15 19:56 | Emergency (ER) | payer MEDICARE, OTHER, SELFPAY ==
[2018-05-03 21:22] VITALS: BMI 40.1
[2018-05-15 20:00] VITALS: BP 158/88; PULSE 94; RESP 18; TEMP 36.8; O2SAT 99; BMI 42.6
--- NOTE | 2018-05-15 20:17 | ED.RN ---
ENTERED IN ERROR 05/15/2018
[2018-05-15 20:50] VITALS: RESP 18
[2018-05-15] MEDS: Ondansetron 4 MG/2 ML Vial IV (21:57)
[2018-05-15] MEDS: Morphine 4 MG/ML Syringe IV (22:00)
[2018-05-15 22:18] LABS: Absolute Lymphocyte Count 1.28 X10^3/ul (0.83-4.51); Absolute Neutrophil Count 9.4 X10^3/uL (2.0-7.7); Eosinophil# 0.01 X10^3/uL; Eosinophils% 0.1 % (0-5); Hematocrit 30.9 % (37-47); Hemoglobin 9.8 g/dl (12.0-15.0); Lymphocyte # 1.28 X10^3/ul (4.0); Mean Corp Hgb Conc 31.7 g/gl (32-36); Mean Corpuscular Hgb 29.2 pg (27.0-32.0); Mean Platelet Vol. 9.4 fl (6.2-12.0); Monocyte# 0.83 X10^3/uL; Monocyte% 7.2 % (0-10); Neutrophil # 9.39 X10^3/uL (2.7-7.7); Neutrophil % 80.9 % (47-70); Platelet Count 148 K/mm3 (150-450); RBC Distribution Width CV 13.9 % (11.6-14.6); Red Blood Count 3.36 M/mm3 (4.2-5.4); White Blood Count 11.6 K/mm3 (4.4-11.0)
[2018-05-15 22:28] LABS: POSITIVE COUNT NO; POSITIVE DIFFERENTIAL NO; POSITIVE MORPHOLOGY NO
[2018-05-15 22:29] VITALS: BP 129/67; PULSE 68; RESP 18; O2SAT 96
[2018-05-15 22:33] LABS: International Normalized Ratio 1.4; Prothrombin Time (Protime)PT. 17.6 SECONDS (11.7-14.9)
[2018-05-15 22:36] LABS: Anion Gap 7 (5-15); BUN 25 mg/dL (7-18); BUN/Creat Ratio 27.6 RATIO (10-20); Calcium,Total 8.3 mg/dL (8.5-10.1); Chloride 98 mmol/L (98-107); Creatinine, Serum 0.91 mg/dL (0.55-1.02); EST Glomerular Filtration Rate 64 mL/min (>60); Est Glom Filt Rate - Afr Amer 78 mL/min (>60); Glucose 107 mg/dL (74-106); Potassium 3.9 mmol/L (3.5-5.1); Sodium Level 134 mmol/L (136-145)
--- NOTE | 2018-05-15 22:46 | EKG12_ITS ---
Test Reason : Blood Pressure : / mmHG Vent. Rate : 066 BPM Atrial Rate : 066 BPM P-R Int : 182 ms QRS Dur : 074 ms QT Int : 376 ms P-R-T Axes : 040 -22 004 degrees QTc Int : 394 ms Normal sinus rhythm Voltage criteria for left ventricular hypertrophy Abnormal ECG Confirmed by SAMM WORKMAN, YOBANI ([id number]), legal editor DARREN SEE ([id number]) on 05/16/2018 5:21:43 PM Referred By: MARY JANE Confirmed By:YOBANI QUIJANO MD
--- NOTE | 2018-05-15 23:52 | ED.VISSUMM ---
- ER Visit Summary Date of Service: 05/15/18 Chief Complaint: Right upper arm bruising History of Present Illness: The patient is a 77 F presenting with right upper arm bruising. Patient states that this started a couple of days ago and continues to worsen. She was admitted to the hospital from May 03 - May 07 for influenza. She states she was diagnosed with DVT during that admission. She was started on Lovenox and Coumadin. She states while she was in the hospital the blood pressure cuff squeezed her right arm frequently. She now has increasing bruising of her right upper arm. Denies fever. Denies shortness of breath. Denies other complaints. Physical Examination: Vitals are stable. Patient is afebrile. Alert no acute distress. HEENT exam is unremarkable. Neck is supple. Lungs are clear and equal bilaterally. Heart is regular rate and rhythm. Abdomen is soft nontender nondistended. Extremities large hematoma approximately 25 cm right upper arm, 3/4 circumferential. Normal distal pulse. Compartments soft. Skin is warm and dry. No focal neurologic deficit. Remainder of exam is unremarkable. Emergency Department Course and Treatment: CBC shows white count 11.6, hemoglobin 9.8, platelet 148. Chemistries show sodium 134, glucose 107, BUN 25. INR is 1.4. Discussed with our hospitalist who is uncomfortable with admission unless orthopedics will evaluate her tonight. Discussed with Dr. Monson who recommends transfer to tertiary care center. Discussed with [facility] and orthopedic resident and patient will be transferred to [facility]. Disposition: Transfer to [facility] Impression: Right arm hematoma This note was generated with [employer] dictation software. It may contain incorrect words, spelling, and punctuation that were not noted in review of the chart prior to signing ED Disposition - Plan for ED Patient: Chief Complaint: Upper Extremity Injury Referrals: Gil Wiseman MD [Primary Care Provider] -
--- NOTE | 2018-05-15 23:56 | ED.DCSUM_ITS ---
- ER Visit Summary Date of Service: 05/15/18 Chief Complaint: Right upper arm bruising History of Present Illness: The patient is a 77 F presenting with right upper arm bruising. Patient states that this started a couple of days ago and continues to worsen. She was admitted to the hospital from May 03 - May 07 for influenza. She states she was diagnosed with DVT during that admission. She was started on Lovenox and Coumadin. She states while she was in the hospital the blood pressure cuff squeezed her right arm frequently. She now has increasing bruising of her right upper arm. Denies fever. Denies shortness of breath. Denies other complaints. Physical Examination: Vitals are stable. Patient is afebrile. Alert no acute distress. HEENT exam is unremarkable. Neck is supple. Lungs are clear and equal bilaterally. Heart is regular rate and rhythm. Abdomen is soft nontender nondistended. Extremities large hematoma approximately 25 cm right upper arm, 3/4 circumferential. Normal distal pulse. Compartments soft. Skin is warm and dry. No focal neurologic deficit. Remainder of exam is unremarkable. Emergency Department Course and Treatment: CBC shows white count 11.6, hemoglobin 9.8, platelet 148. Chemistries show sodium 134, glucose 107, BUN 25. INR is 1.4. Discussed with our hospitalist who is uncomfortable with admission unless orthopedics will evaluate her tonight. Discussed with Dr. Monson who recommends transfer to tertiary care center. Discussed with [facility] and orthopedic resident and patient will be transferred to [facility]. Disposition: Transfer to [facility] Impression: Right arm hematoma This note was generated with [employer] dictation software. It may contain incorrect words, spelling, and punctuation that were not noted in review of the chart prior to signing ED Disposition - Plan for ED Patient: Chief Complaint: Upper Extremity Injury Referrals: Gil Wiseman MD [Primary Care Provider] -
[2018-05-16] MEDS: fentaNYL 100 MCG/2 ML Ampul 50 MCG IV (00:14)
[2018-05-16 00:16] VITALS: BP 145/73; PULSE 77; RESP 17; O2SAT 98
[2018-05-16 01:14] LABS: Partial Thromboplast Time 41.3 Seconds (24.1-36.2)
[2018-05-16 01:34] VITALS: BP 145/73; PULSE 77; RESP 17; O2SAT 98
[2018-05-16 02:04] VITALS: RESP 17; O2SAT 97
== END 2018-05-16 02:49 | disposition short-term general hospital (02) ==
LOC: ED 21:45
PROVIDERS: Emergency Provider Emergency Medicine; Family Provider Family Medicine; PCP Family Medicine
DX: M79.81 Nontraumatic hematoma of soft tissue (principal); J45.909 Unspecified asthma, uncomplicated; Z86.718 Personal history of other venous thrombosis and embolism; Z79.01 Long term (current) use of anticoagulants; Z79.899 Other long term (current) drug therapy
CPT/HCPCS: 80048; 85025; 85610; 85730; 93005; 96374; 96375; 99284; A4216; J2405

== ENCOUNTER → 2018-08-03 09:21 | Outpatient (CLI) | payer MEDICARE, OTHER, SELFPAY ==
[2018-08-03 08:28] VITALS: BMI 42.6
[2018-08-03 09:50] VITALS: PULSE 105; PULSE 117; PULSE 125; PULSE 127; PULSE 129; PULSE 131; PULSE 92; O2SAT 96; O2SAT 97; O2SAT 98
--- NOTE | 2018-08-03 09:54 | CPS ---
PT had increased shortness of breath during study, pt's HR started on 92 and ended at 131. Pt stated this high HR is normal for her. Pt was on RA for the entire study SpO2 stayed around 96%. Post study she said she was very severely short of breath and exerting herself very hard.
[2018-08-03 10:49] LABS: Absolute Lymphocyte Count 1.29 X10^3/ul (0.83-4.51); Absolute Neutrophil Count 4.4 X10^3/uL (2.0-7.7); Basophil# 0.02 X10^3/uL; Basophil% 0.3 % (0-1); Eosinophil# 0.08 X10^3/uL; Eosinophils% 1.3 % (0-5); Hemoglobin 11.8 g/dl (12.0-15.0); Lymphocyte # 1.29 X10^3/ul (4.0); Lymphocyte % 20.2 % (19-41); Mean Corp Hgb Conc 31.9 g/gl (32-36); Mean Corpuscular Hgb 28.5 pg (27.0-32.0); Mean Corpuscular Volume 89.4 fL (81-99); Mean Platelet Vol. 9.5 fl (6.2-12.0); Monocyte# 0.55 X10^3/uL; Monocyte% 8.6 % (0-10); Neutrophil # 4.43 X10^3/uL (2.7-7.7); Neutrophil % 69.4 % (47-70); Platelet Count 229 K/mm3 (150-450); RBC Distribution Width CV 14.7 % (11.6-14.6); RBC Distribution Width SD 47.3 fl (35.1-43.9); Red Blood Count 4.14 M/mm3 (4.2-5.4); White Blood Count 6.4 K/mm3 (4.4-11.0)
[2018-08-03 10:50] LABS: POSITIVE COUNT NO; POSITIVE DIFFERENTIAL NO; POSITIVE MORPHOLOGY NO
[2018-08-03 10:57] LABS: Anion Gap 8 (5-15); BUN 15 mg/dL (7-18); BUN/Creat Ratio 16.2 RATIO (10-20); Chloride 103 mmol/L (98-107); Creatinine, Serum 0.93 mg/dL (0.55-1.02); EST Glomerular Filtration Rate 63 mL/min (>60); Est Glom Filt Rate - Afr Amer 76 mL/min (>60); Estimated Creatinine Clearance 47.03 ml/min; Glucose 83 mg/dL (74-106); Potassium 4.3 mmol/L (3.5-5.1); Sodium Level 136 mmol/L (136-145)
--- NOTE | 2018-08-03 10:57 | PCM.PSN.6M ---
PSN 6 Minute Walk Test - 6 Minute Walk Test 6 Minute Walk Test: 6 Minute Walk Test PSN:6-Minute Walk Test Start: 08/03/18 09:50 Freq: Status: Active Protocol: [id number].6MINW Document 08/03/18 09:50 HG (Rec: 08/03/18 09:56 HG [id number]) 6 Minute Walk Test Date Performed 08/03/18 Time Performed 09:30 Height 5 ft 5 in Weight: 114.305 kg Weight in Pounds 252.[address]: Bessy Estes Assistive device used: Cane Pre-test Oxygen Delivery Method Room Air Pulse Ox (%) 98 Pulse Rate (60-100 beats/min) 92 Dyspnea Alejandro Scale (0-10) 1 Exertion Alejandro Scale (6-20) 8 1st minute Oxygen Delivery Method Room Air Pulse Ox (%) 97 Pulse Rate (60-100 beats/min) 117 H Reported Symptoms Increased Work of Breathing 2nd minute Oxygen Delivery Method Room Air Pulse Ox (%) 97 Pulse Rate (60-100 beats/min) 125 H Reported Symptoms Increased Work of Breathing 3rd minute Oxygen Delivery Method Room Air Pulse Ox (%) 97 Pulse Rate (60-100 beats/min) 129 H Reported Symptoms Increased Work of Breathing 4th minute Oxygen Delivery Method Room Air Pulse Ox (%) 97 Pulse Rate (60-100 beats/min) 129 H Reported Symptoms Increased Work of Breathing 5th minute Oxygen Delivery Method Room Air Pulse Ox (%) 96 Pulse Rate (60-100 beats/min) 127 H Reported Symptoms Increased Work of Breathing 6th minute Oxygen Delivery Method Room Air Pulse Ox (%) 96 Pulse Rate (60-100 beats/min) 131 H Reported Symptoms Increased Work of Breathing Post-test Oxygen Delivery Method Room Air Pulse Ox (%) 98 Pulse Rate (60-100 beats/min) 105 H Dyspnea Alejandro Scale (0-10) 7 Exertion Alejandro Scale (6-20) 16 Reported Symptoms Increased Work of Breathing Full Laps Walked 10 Partial Lap, Number of Tiles Walked 0 Total Distance Walked (ft) 590 08/03/18 09:54 Cardiopulmonary Services by Fátima Thompson PT had increased shortness of breath during study, pt's HR started on 92 and ended at 131. Pt stated this high HR is normal for her. Pt was on RA for the entire study SpO2 stayed around 96%. Post study she said she was very severely short of breath and exerting herself very hard. Initialized on 08/03/18 09:54 - END OF NOTE - Interpretation Interpretation: The patient was able to ambulate 590 feet over the course of 6 minutes on room air with the assistance of a cane and no breaks. The patient experienced no significant desaturation, but did have significant tachycardia with a peak heart rate of 131 bpm. These findings are consistent with a cardiovascular limitation exercise tolerance. - Recommendations Recommendations: No supplemental oxygen is indicated at this time, but patient may benefit from a cardiovascular examination.
[2018-08-03 11:49] LABS: BNP,B-Type NATRIURETIC PEPTIDE 35.2 pg/mL (0-100)
[2018-08-10 15:35] LABS: Immunoglobulin E 36 IU/mL (6-495)
[2018-08-14 03:05] LABS: Alternaria alternata <0.10 kU/L (Class 0); Bermuda Grass <0.10 kU/L (Class 0); Bluegrass, Kentucky <0.10 kU/L (Class 0); Cat Hair/Dander, Standard <0.10 kU/L (Class 0); D farinae Mite <0.10 kU/L (Class 0); D pteronyssinus <0.10 kU/L (Class 0); Dog Epithelia <0.10 kU/L (Class 0); Elm, American White <0.10 kU/L (Class 0); Oak, White <0.10 kU/L (Class 0); Plantain, English <0.10 kU/L (Class 0); Ragweed, Short/Common <0.10 kU/L (Class 0)
[2018-08-14 10:02] LABS: Mouse Urine <0.10 kU/L (Class 0)
== END ==
LOC: PSN 09:23 → PAVLAB 10:00
PROVIDERS: Family Provider Family Medicine; PCP Family Medicine; Referring Provider Nurse Practitioner Acute Care; Visit Provider Nurse Practitioner Acute Care
DX: R06.02 Shortness of breath (principal)
CPT/HCPCS: 36415; 80048; 82785; 83880; 85025; 86003; 94618

== ENCOUNTER → 2018-08-04 06:52 | Outpatient (CLI) | payer MEDICARE, OTHER, SELFPAY ==
[2018-04-28 10:35] VITALS: BMI 40.5
[2018-08-03 08:28] VITALS: BMI 42.6
--- NOTE | 2018-08-04 10:43 | PFTCOMP ---
COMPLETE PULMONARY FUNCTION TEST INTERPRETATION Brief HPI: Patient is a 77 year old female, currently under the care of Bessy Estes, who presents to [facility] for complete pulmonary function tests secondary to diagnosis of dyspnea. Respiratory therapist reports good effort and reproducible results. Interpretation: Forced expiration spirometry shows no large airways obstructive ventilatory defect with an FEV1 of 78% predicted. There is no significant bronchodilator response by strict ATS criteria. Spirograms are of good quality and plateau normally. The respiratory flow volume loop shows a normal pattern. Lung volumes by body plethysmography show a normal total lung capacity at 4.25 L, 85% predicted. All other lung volumes are within normal limits. Diffusion capacity by carbon monoxide is decreased at 59% predicted. The airway resistance is normal. Compared to previous pulmonary function tests from 07/23/16, there has been no significant change. Impression: Lung volumes are at the lower limit of normal, but DLCO is reduced out of proportion indicating a probable pulmonary vascular disorder. Early interstitial lung disease cannot be excluded.
--- NOTE | 2018-08-04 10:49 | PFTCOMP_ITS ---
COMPLETE PULMONARY FUNCTION TEST INTERPRETATION Brief HPI: Patient is a 77 year old female, currently under the care of Bessy Estes, who presents to [facility] for complete pulmonary function tests secondary to diagnosis of dyspnea. Respiratory therapist reports good effort and reproducible results. Interpretation: Forced expiration spirometry shows no large airways obstructive ventilatory defect with an FEV1 of 78% predicted. There is no significant bronchodilator re sponse by strict ATS criteria. Spirograms are of good quality and plateau normally. The respiratory flow volume loop shows a normal pattern. Lung volumes by body plethysmography show a normal total lung capacity at 4.25 L, 85% predicted. All other lung volumes are within normal limits. Diffusion capacity by carbon monoxide is decreased at 59% predicted. The airway resistance is normal. Compared to previous pulmonary function tests from 07/23/16, there has been no significant change. Impression: Lung volumes are at the lower limit of normal, but DLCO is reduced out of proportion indicating a probable pulmonary vascular disorder. Early interstitial lung disease cannot be excluded.
== END ==
PROVIDERS: Family Provider Family Medicine; PCP Family Medicine; Referring Provider Nurse Practitioner Acute Care; Visit Provider Nurse Practitioner Acute Care
DX: R06.02 Shortness of breath (principal)
CPT/HCPCS: 94060; 94726; 94729

== ENCOUNTER → 2018-09-04 20:15 | Outpatient (CLI) | payer MEDICARE, OTHER, SELFPAY ==
[2018-08-08 12:46] VITALS: BMI 41.5
== END ==
PROVIDERS: Family Provider Family Medicine; PCP Family Medicine; Referring Provider Nurse Practitioner Acute Care; Visit Provider Nurse Practitioner Acute Care
DX: G47.33 Obstructive sleep apnea (adult) (pediatric) (principal)
CPT/HCPCS: 95811

== ENCOUNTER → 2018-11-21 11:00 | Outpatient (CLI) | payer MEDICARE, OTHER, SELFPAY ==
[2018-11-09 09:13] VITALS: BMI 39.4
== END ==
PROVIDERS: Family Provider Family Medicine; PCP Family Medicine; Referring Provider Internal Medicine Critical Care Medicine; Visit Provider Internal Medicine Critical Care Medicine
DX: G47.33 Obstructive sleep apnea (adult) (pediatric) (principal)
CPT/HCPCS: 98960; G0463

== ENCOUNTER → 2019-02-23 06:45 | Outpatient (CLI) | payer MEDICARE, OTHER, SELFPAY ==
[2019-02-13 08:51] VITALS: BMI 41.2
--- NOTE | 2019-02-23 06:53 | CT_ITS ---
STUDY: CT MAXILLOFACIAL SINUSES REASON FOR EXAM: Female, 78 years old. Facial pain and sinus congestion and drainage RADIATION DOSAGE (If Supplied By Facility): CTDIvol = ( 33.06 ) mGy, DLP = ( 709.89 ) mGycm TECHNIQUE: The patient was scanned in a multi detector CT scanner. High resolution axial imaging was performed without the administration of intravenous contrast material. Sagittal and coronal images were reconstructed. Individualized dose optimization techniques were used for this CT. COMPARISON: 22 November 2016, 20 April 2016 FINDINGS: Paranasal sinuses are well aerated and clear with a stable benign incidental left maxillary sinus mucosal retention cyst. Nasofrontal recesses, sphenoethmoidal recesses and semilunar hiati are patent. Nasal cavity and nasopharynx are clear. There is mild rightward nasal septal deviation without spur. There is no extra sinus disease. Mastoid air cells, middle ears and external auditory canals are clear. Orbits and contents are normal. Appearance is stable since multiple priors. CT/Sinus/Facial Bone IMPRESSION: 1. Unremarkable paranasal sinuses without acute or chronic illness and unchanged since multiple prior studies. Electronically Signed: Kelby Lewis, at 17:01 EDT Tel , Service support ,
== END ==
PROVIDERS: Family Provider Family Medicine; PCP Family Medicine; Referring Provider Otolaryngology; Visit Provider Otolaryngology
DX: R51 Headache (principal)
CPT/HCPCS: 70486

== ENCOUNTER → 2021-03-04 13:03 | Outpatient (CLI) | payer MEDICARE, OTHER, SELFPAY ==
--- NOTE | 2021-03-04 16:10 | NEURO ---
NCS and/or EMG Patient Report Ordering Doctor: Servando Wilson DATE OF SERVICE: 03/04/21 Mona presents for electrodiagnostic testing of the upper limbs. She reports numbness and tingling in both hands, worse on the right side. Electrodiagnostic findings: Right median motor nerve demonstrates prolonged latency with normal amplitude and reduced conduction velocity. Left median motor nerve demonstrates prolonged distal latency with reduced amplitude and reduced conduction velocity. Ulnar motor response demonstrates drop in conduction velocity across the elbow bilaterally. Prolonged median and ulnar F waves bilaterally. Absent median sensory response at the palm and wrist bilaterally. On needle EMG, all muscles tested in the upper limbs showed no evidence of denervation with normal motor unit action potentials Electrodiagnostic impression: This is an abnormal study in the upper limbs. 1. Electrodiagnostic findings demonstrate bilateral median mononeuropathy. This is consistent with a moderate to advanced bilateral carpal tunnel syndrome 2. Electrodiagnostic findings demonstrate bilateral ulnar neuropathy, consistent with a mild bilateral cubital tunnel syndrome.
== END ==
PROVIDERS: PCP Family Medicine; Referring Provider Specialist; Visit Provider Specialist
DX: R20.2 Paresthesia of skin (principal)
CPT/HCPCS: 95886; 95913

== ENCOUNTER 2021-03-28 10:33 | Emergency (ER) | payer MEDICARE, OTHER, SELFPAY ==
[2021-03-28 10:34] VITALS: BP 151/70; PULSE 81; RESP 20; TEMP 36.6; O2SAT 96; BMI 41.1
[2021-03-28 10:45] VITALS: O2SAT 96
--- NOTE | 2021-03-28 11:15 | EKG12_ITS ---
Test Reason : SOB Blood Pressure : / mmHG Vent. Rate : 063 BPM Atrial Rate : 063 BPM P-R Int : 170 ms QRS Dur : 082 ms QT Int : 390 ms P-R-T Axes : 055 -24 013 degrees QTc Int : 399 ms Normal sinus rhythm Voltage criteria for left ventricular hypertrophy Abnormal ECG Confirmed by SAMM WORKMAN, YOBANI ([id number]), photographic editor JAYJAY HASKINS ([id number]) on 03/31/2021 8:50:51 AM Referred By: ISMA Confirmed By:YOBANI QUIJANO MD
[2021-03-28 11:17] VITALS: O2SAT 96
--- NOTE | 2021-03-28 11:18 | ED.VIS.DYS ---
HPI History of Present Illness Chief Complaint: Shortness of Breath Informant: patient Narrative Narrative: 80-year-old female presenting to the emergency department with dyspnea. Patient states that she is Covid positive having tested positive on 22 March developing symptoms on 18 March. She states that she used to frequently get bronchitis but has not had any problems for 3 years. She notes worsening cough and fluid in her lungs. She states she will occasionally produce sputum. Patient was seen on about 24 March at [facility] and started on albuterol MDI and prednisone. She is unsure of how much prednisone she was taking but states it was 1 pill. Patient denies any underlying lung conditions but there is a diagnosis of bronchiectasis. She has seen Dr. Martins in the past and also carries a diagnosis of asthma, obstructive sleep apnea and wears Pap therapy. [facility] Medical History (Updated 03/28/21 @ 12:[address] 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 Shortness of breath Sick sinus syndrome Sinus pain Sinusitis SVT (supraventricular tachycardia) Syncope Vitamin D deficiency Home Medications cholecalciferol (vitamin D3) 125 mcg (5,000 unit) capsule 5,000 unit PO DAILY 05/06/17 [History Last Taken 05/01/18] omeprazole 20 mg capsule,delayed release 20 mg PO DAILY 05/06/17 [History Last Taken 05/03/18] albuterol sulfate 90 mcg/actuation aerosol inhaler 1 - 2 puff INHALATION Q4H PRN PRN #1 device 08/31/17 [Rx Last Taken Unknown] gabapentin 800 mg PO BID 05/03/18 [History Last Taken 05/03/18] lisinopril 10 mg PO DAILY 05/03/18 [History Last Taken 05/02/18] oxybutynin chloride 10 mg PO DAILY 05/03/18 [History Last Taken 05/03/18] albuterol sulfate 2.5 mg INHALATION Q6HWA.RT 30 Days #120 vial.neb. 05/07/18 [Rx Last Taken Unknown] enoxaparin 120 mg SQ BID 05/15/18 [History Last Taken Unknown] warfarin 5 mg PO DAILY 05/15/18 [History Last Taken Unknown] albuterol sulfate 2.5 mg INHALATION Q4H PRN #25 vial 03/28/21 [Rx Last Taken Unknown] prednisone 60 mg PO DAILY #15 tablet 03/28/21 [Rx Last Taken Unknown] Allergy/AdvReac Type Severity Reaction Status Date / Time grass pollen Allergy Mild Other - Verified 03/28/21 10:35 sneezing and congestion mold Allergy Mild Other - Verified 03/28/21 10:35 sneezing iodine contrast Allergy Intermediate Other - Uncoded 03/28/21 10:35 hypotension sodium pentothal Allergy Intermediate Other - Uncoded 03/28/21 10:35 tongue numb ANTIBIOTIC AdvReac Upset Uncoded 03/28/21 10:35 Stomach Family History Mother Heart disease Hypertension Myocardial infarction Father Heart disease Myocardial infarction Sister Diabetes Heart disease pacemaker Surgical History History of colonoscopy History of esophagogastroduodenoscopy (EGD) History of total hip replacement S/P placement of cardiac pacemaker Total knee replacement status Total knee replacement status Social History Smoking Status: Never smoker alcohol intake: never substance use type: does not use ROS ROS ED Constitutional Constitutional ED: Reports fever(s); Denies chills or weight loss Eyes Eyes: Denies change in vision or diplopia ENT ENT ED: Reports rhinorrhea; Denies ear pain or sore throat Cardiovascular Cardiovascular: Denies chest pain, orthopnea, palpitations or racing heartbeat Respiratory/Chest Respiratory/Chest: Reports cough, dyspnea, dyspnea on exertion and sputum; Denies orthopnea Gastrointestinal Gastrointestinal: Denies abdominal pain, diarrhea, nausea or vomiting Genitourinary Genitourinary ED: Denies dysuria, hematuria or urinary frequency Musculoskeletal Musculoskeletal: Denies arthralgias or myalgias Integumentary Denies abscess or rash Neurologic Neurologic: Reports headache(s); Denies weakness Psychiatric Psychiatric: Denies anxiety, depression, suicidal ideation or suicidal thoughts Endocrine Endocrinology: Denies polydipsia, polyphagia or polyuria Allergic/Immunologic Allergic/Immunologic ED: Denies mouth swelling, tongue swelling or urticaria EXAM Physical Exam Const Vital Signs: 03/28/21 10:34 03/28/21 10:45 03/28/21 11:24 Temperature 97.8 F Temperature Source Temporal Pulse Rate 81 77 Respiratory Rate 20 H 28 H Respiratory Effort Short of Breath Pursed Lip Respiratory Depth Shallow Respiratory Pattern Tachypnea Blood Pressure 151/70 H Blood Pressure Mean 97 Pulse Ox 96 Oxygen Delivery Method Room Air Room Air 03/28/21 11:44 Temperature Temperature Source Pulse Rate 75 Respiratory Rate 21 H Respiratory Effort Respiratory Depth Respiratory Pattern Blood Pressure Blood Pressure Mean Pulse Ox 97 Oxygen Delivery Method Room Air Positive well nourished, well developed and obese General Appearance ED: well developed Nutritional Appearance: obese HEENT Reports normocephalic, head/scalp atraumatic, TM's clear and moist mucous membranes atraumatic Tympanic Membrane ED: Yes TM's clear Eyes PERRL and EOMs intact bilaterally Neck no lymphadenopathy, supple and no JVD Resp Resp Narrative: Patient has conversational dyspnea. She has tactile fremitus. Rhonchi and wheezes noted. Auscultation: rhonchi and wheezes Cardio regular rate, regular rhythm and no murmurs GI normal to inspection, nondistended, normoactive bowel sounds and non-tender Auscultation: normoactive bowel sounds Palpation: soft Back/Spine no CVA tenderness, normal ROM and normal to inspection Extremity normal to inspection General Extremety ED: Negative for edema General Extremity: Negative for edema Neuro oriented x3 and CN's II-XII intact bilaterally Sensorium / Orientation: alert Motor Exam: strength 5/5 throughout Psych mental status grossly normal Mood & Affect: Negative for depressed or tearful Skin no rashes or lesions noted and no wounds MDM MDM MDM Narrative Medical decision making narrative: My interpretation of the chest x-ray is no acute process. White count 9.8 with a hemoglobin of 12. Lactic acid is normal at 1.2. Troponin of 6. Natruretic peptide 39.3. Patient received breathing treatments and Solu-Medrol. The patient continues to have conversational dyspnea. She still has significant wheezing and rhonchi. I spoke with the hospitalist and with pulmonary. Recommendations start her on steroids and albuterol and have her follow-up on Tuesday if not improved. After asking multiple times she has a nebulizer at home and being told no she then tells me that she has got a machine called a nebulizer that but she does not have the solution. I showed her a picture of a nebulizer and she says that is the one I have. I will write for her to have solution and prednisone. She is to do Acapella and call pulmonary on Tuesday if not improved Lab Data Attestation: I reviewed the patient's lab results. Labs: Laboratory Results - last 24 hr 03/28/21 03/28/21 03/28/21 11:25 11:25 11:25 WBC 9.8 RBC 4.00 L Hgb 12.0 Hct 36.2 L MCV 90.5 MCH 30.0 MCHC 33.1 RDW Std Deviation 46.5 H RDW Coeff of Yecenia 13.9 Plt Count 170 MPV 9.8 Immature Gran % (Auto) 0.500 Neut % (Auto) 85.9 H Lymph % (Auto) 8.0 L Taliaferro % (Auto) 5.6 Eos % (Auto) 0.0 Baso % (Auto) 0.0 Absolute Neuts (auto) 8.4 H Absolute Lymphs (auto) 0.79 L Nucleated RBC % 0 Sodium 132 L Potassium 3.9 Chloride 99 Carbon Dioxide 27.0 Anion Gap 6 BUN 25 H Creatinine 1.03 H Estim Creat Clear Calc 38.87 Est GFR (MDRD) Af Amer 67 Est GFR (MDRD) Non-Af 55 L BUN/Creatinine Ratio 24.3 H Glucose 92 Lactic Acid 1.2 Calcium 8.9 Total Bilirubin 1.00 AST 37 ALT 42 Alkaline Phosphatase 46 Troponin I High Sens 6 B-Natriuretic Peptide Total Protein 7.4 Albumin 2.9 L Globulin 4.5 H Albumin/Globulin Ratio 0.6 L 03/28/21 11:25 WBC RBC Hgb Hct MCV MCH MCHC RDW Std Deviation RDW Coeff of Yecenia Plt Count MPV Immature Gran % (Auto) Neut % (Auto) Lymph % (Auto) Taliaferro % (Auto) Eos % (Auto) Baso % (Auto) Absolute Neuts (auto) Absolute Lymphs (auto) Nucleated RBC % Sodium Potassium Chloride Carbon Dioxide Anion Gap BUN Creatinine Estim Creat Clear Calc Est GFR (MDRD) Af Amer Est GFR (MDRD) Non-Af BUN/Creatinine Ratio Glucose Lactic Acid Calcium Total Bilirubin AST ALT Alkaline Phosphatase Troponin I High Sens B-Natriuretic Peptide 39.3 Total Protein Albumin Globulin Albumin/Globulin Ratio Radiography Diagnostic Testing: Clinical Impression(s) from Imaging Studies Chest X-Ray 03/28/21 11:40 IMPRESSION: No significant change. Electronically Signed: Tony Camarena, at 11:51 EST Tel , Service support , Discharge Plan Triage Chief Complaint: Shortness of Breath ED Provider: Harmeet Covarrubias Dx/Rx/DC Orders Clinical Impression: COVID-19, Asthmatic bronchitis with acute exacerbation Instructions: ED Bronchitis with Wheezing (Adult) Prescriptions: New albuterol sulfate 2.5 MG/3 ML solution for nebulization 2.5 mg inhalation Q4H PRN Qty: 25 RF: 0 prednisone 20 MG tablet 60 mg PO DAILY Qty: 15 RF: 0 No Action omeprazole 20 mg capsule,delayed release(DR/EC) 20 mg PO DAILY RF: 0 cholecalciferol (vitamin D3) 5,000 unit capsule 5,000 unit PO DAILY RF: 0 albuterol sulfate 90 mcg/actuation HFA aerosol inhaler 1 - 2 puff INHALATION Q4H PRN PRN (Reason: shortness of breath or wheezing) Qty: 1 RF: 3 oxybutynin chloride 10 MG tablet extended release 24hr 10 mg PO DAILY RF: 0 gabapentin 400 MG capsule 800 mg PO BID RF: 0 lisinopril 10 MG tablet 10 mg PO DAILY RF: 0 albuterol sulfate 2.5 MG/3 ML solution for nebulization 2.5 mg Inhalation Q6HWA.RT 30 Days Qty: 120 RF: 0 warfarin 5 MG tablet 5 mg PO DAILY RF: 0 enoxaparin 120 MG/0.8 ML syringe 120 mg SQ BID RF: 0 Primary Care Provider: Gil Wiseman Referrals: Gil Wiseman MD [Primary Care Provider] - As Needed Shukri Martins DO [STAFF PHYSICIAN] - 1-2 Days if not improving Activity Restrictions/Additional Instructions: Albuterol nebulizer every 4 hours. Prednisone daily Use the Acapella as discussed with respiratory therapist. Please call Dr. Martins on Tuesday if you are not feeling better Disposition Disposition: Home, Self Care
[2021-03-28 11:24] VITALS: PULSE 77; RESP 28
[2021-03-28] MEDS: Ipratropium/Albuterol Sulfate 3 ML AMPUL.NEB INHALATION (11:24)
[2021-03-28] MEDS: Albuterol 2.5 MG/3 ML VIAL.NEB. INHALATION ×2 (11:24)
[2021-03-28] MEDS: MethylPREDNISolone 125 MG/2 ML Vial IV (11:33)
--- NOTE | 2021-03-28 11:40 | RAD_ITS ---
STUDY: X-RAY CHEST REASON FOR EXAM: Female, 80 years old. Cough. TECHNIQUE: Single AP portable view of the chest. COMPARISON: 05/03/2018. FINDINGS: Dual-chamber left-sided cardiac pacer device in stable position. Hypoventilatory changes. No new infiltrate is seen. There is no demonstrated pleural abnormality. There is borderline cardiomegaly. Normal mediastinum and massiel. Normal visualized pulmonary arteries. 3 Unchanged osseous structures. There is no demonstrated abnormality of the visualized soft tissue structures of the upper abdomen. RAD/Chest 1 View (Portable) IMPRESSION: No significant change. Electronically Signed: Tony Camarena, at 11:51 EST Tel , Service support ,
[2021-03-28 11:44] VITALS: PULSE 75; RESP 21; O2SAT 97
[2021-03-28 11:51] LABS: Absolute Lymphocyte Count 0.79 X10^3/uL (0.83-4.51); Absolute Neutrophil Count 8.4 X10^3/uL (2.0-7.7); Hematocrit 36.2 % (37-47); Lymphocyte # 0.79 X10^3/ul (0.83-4.51); Mean Corp Hgb Conc 33.1 g/dL (32-36); Mean Corpuscular Volume 90.5 fL (81-99); Mean Platelet Vol. 9.8 fl (6.2-12.0); Monocyte# 0.55 X10^3/uL; Monocyte% 5.6 % (0-10); NRBC Flagged by Analyzer 0 % (0-5); Neutrophil # 8.44 X10^3/uL (2.7-7.7); Neutrophil % 85.9 % (47-70); Platelet Count 170 K/mm3 (150-450); RBC Distribution Width CV 13.9 % (11.6-14.6); RBC Distribution Width SD 46.5 fl (35.1-43.9); White Blood Count 9.8 K/mm3 (4.4-11.0)
[2021-03-28 12:10] LABS: ALB/GLOB Ratio 0.6 RATIO (0.9-2.4); AST(SGOT) 37 U/L (15-37); Alanine Aminotransfer ALT/SGPT 42 U/L (13-56); Albumin, Serum 2.9 g/dL (3.2-5.0); Alkaline Phosphatase 46 U/L (45-117); Anion Gap 6 (5-15); BUN 25 mg/dL (7-18); BUN/Creat Ratio 24.3 RATIO (10-20); Calcium,Total 8.9 mg/dL (8.5-10.1); Chloride 99 mmol/L (98-107); Creatinine, Serum 1.03 mg/dL (0.55-1.02); EST Glomerular Filtration Rate 55 mL/min (>60); Est Glom Filt Rate - Afr Amer 67 mL/min (>60); Estimated Creatinine Clearance 38.87 ml/min; Globulin 4.5 g/dL (2.2-4.2); Glucose 92 mg/dL (74-106); Potassium 3.9 mmol/L (3.5-5.1); Protein, Total 7.4 g/dL (6.4-8.2); Sodium Level 132 mmol/L (136-145); Troponin-I HS 6 pg/mL (3.0-54.0)
[2021-03-28 12:11] LABS: BNP,B-Type NATRIURETIC PEPTIDE 39.3 pg/mL (0-100)
[2021-03-28 12:18] LABS: Lactic Acid 1.2 mmol/L (0.4-1.9)
--- NOTE | 2021-03-29 10:54 | ED.RN ---
CALLED AND LEFT MESSAGE REGARDING BLOOD CULTURE RESULTS.
== END 2021-03-28 13:54 | disposition home or self-care (01) ==
PROVIDERS: Emergency Provider Emergency Medicine; PCP Family Medicine
DX: U07.1 COVID-19 (principal); J20.9 Acute bronchitis, unspecified; J45.901 Unspecified asthma with (acute) exacerbation; Z95.0 Presence of cardiac pacemaker
CPT/HCPCS: 71045; 80053; 83605; 83880; 84484; 85025; 87040; 87077; 87186; 93005; 94640; 94667; 96374; 99284; A4216

== ENCOUNTER 2021-04-02 17:33 | Inpatient (IN) | payer MEDICARE, OTHER, SELFPAY ==
[2021-04-02] VITALS (7 sets, daily range): BP systolic 114–183; BP diastolic 90–125; PULSE 60–77; RESP 18–28; TEMP 36.2–36.9; O2SAT 93–98; BMI 40.8
--- NOTE | 2021-04-02 18:11 | EKG12_ITS ---
Test Reason : SOB Blood Pressure : / mmHG Vent. Rate : 071 BPM Atrial Rate : 071 BPM P-R Int : 224 ms QRS Dur : 086 ms QT Int : 380 ms P-R-T Axes : 000 -29 024 degrees QTc Int : 412 ms Atrial-paced rhythm with prolonged AV conduction Voltage criteria for left ventricular hypertrophy Abnormal ECG Confirmed by RADHA WORKMAN, ORION ([id number]), online editor JAYJAY HASKINS ([id number]) on 04/06/2021 9:49:18 AM Referred By: Woodrow Epstein Confirmed By:PAU GARCIA MD
--- NOTE | 2021-04-02 18:18 | RAD_ITS ---
STUDY: X-RAY CHEST REASON FOR EXAM: Female, 80 years old. CHEST PAIN SOB TECHNIQUE: XR Chest 1 View COMPARISON: Mar 28 2021 11:30am FINDINGS: There is no demonstrated pleural abnormality. There is bilateral infiltrate. There is a left sided pacemaker batterypack. Normal size heart. Normal mediastinum and massiel. Normal visualized pulmonary arteries. There is atherosclerotic calcification of the aortic arch with tortuosity. There are diffuse degenerative changes of the visualized thoracic spine. There is degenerative osteoarthritis of the bilateral shoulders. There is no demonstrated abnormality of the visualized soft tissue structures of the upper abdomen. RAD/Chest 1 View (Portable) IMPRESSION: Bilateral pneumonia. Electronically Signed: Ji Santiago MD at 19:01 EST , Service support ,
[2021-04-02] MEDS: 0.9% Normal Saline 1,000 ML 999 ML IV (19:08)
[2021-04-02 19:35] LABS: Hematocrit 40.5 % (37-47); Hemoglobin 13.1 g/dL (12.0-15.0); Mean Corp Hgb Conc 32.3 g/dL (32-36); Mean Corpuscular Hgb 29.2 pg (27.0-32.0); Mean Corpuscular Volume 90.2 fL (81-99); Mean Platelet Vol. 9.4 fl (6.2-12.0); POSITIVE COUNT YES; POSITIVE MORPHOLOGY YES; Platelet Count 278 K/mm3 (150-450); RBC Distribution Width CV 13.3 % (11.6-14.6); RBC Distribution Width SD 44.3 fl (35.1-43.9); Red Blood Count 4.49 M/mm3 (4.2-5.4); White Blood Count 12.5 K/mm3 (4.4-11.0)
[2021-04-02 19:51] LABS: Anion Gap 9 (5-15); BUN 32 mg/dL (7-18); Calcium,Total 9.5 mg/dL (8.5-10.1); Chloride 99 mmol/L (98-107); Creatinine, Serum 1.28 mg/dL (0.55-1.02); EST Glomerular Filtration Rate 43 mL/min (>60); Est Glom Filt Rate - Afr Amer 52 mL/min (>60); Estimated Creatinine Clearance 31.28 ml/min; Glucose 128 mg/dL (74-106); Potassium 4.4 mmol/L (3.5-5.1); Sodium Level 134 mmol/L (136-145)
[2021-04-02 20:01] LABS: Differential Indicated MANUAL DIFF
[2021-04-02 21:04] LABS: Lymphocyte 4 % (19-41); Monocyte 3 % (0-10); Myelocyte 2 % (0-0); Neutrophil-Band 4 % (0-5); Neutrophil-Segmented 87 % (47-70); Total Cells Counted 100 (MANUAL DIFF)
[2021-04-02 21:08] LABS: Absolute Neutrophil Count 11.4 X10^3/uL (2.0-7.7); Anisocytosis RARE; Macrocytosis RARE; Platelet Estimate ADEQUATE (ADEQ); Red Cell Morphology N CHROM NORMAL (NORM C&C)
--- NOTE | 2021-04-02 21:48 | ED.VIS.DYS ---
HPI History of Present Illness Chief Complaint: Shortness of Breath Informant: patient Onset/Context/Timing Onset: Weeks (2) Context: gradual Timing: Continuous Quality: Positive for Dyspnea on exertion Worsened by: Exertion Relieved by: Albuterol Associated Symptoms cough, sore throat and yellow sputum; Negative for rhinorrhea, ear pain, fever or chills Chest Pain: Positive for None Narrative Narrative: Patient presents with shortness of breath that has been getting worse over the past 2 weeks. Patient states it is gradually getting worse. Patient states it is gotten worse over the past 1 to 2 days. Patient states her symptoms started 2 weeks ago. Patient states she tested positive for COVID-19 on 03/22/2021. Patient states she is coughing up some yellow sputum. Patient admits to a mild sore throat. Patient denies any fevers or chills. Patient denies any chest pain [facility] Medical History (Updated 04/02/21 @ 21:[address] 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 Shortness of breath Sick sinus syndrome Sinus pain Sinusitis SVT (supraventricular tachycardia) Syncope Vitamin D deficiency Home Medications cholecalciferol (vitamin D3) 125 mcg (5,000 unit) capsule 5,000 unit PO DAILY 05/06/17 [History Last Taken 05/01/18] omeprazole 20 mg capsule,delayed release 20 mg PO DAILY 05/06/17 [History Last Taken 05/03/18] albuterol sulfate 90 mcg/actuation aerosol inhaler 1 - 2 puff INHALATION Q4H PRN PRN #1 device 08/31/17 [Rx Last Taken Unknown] lisinopril 10 mg PO DAILY 05/03/18 [History Last Taken 05/02/18] albuterol sulfate 2.5 mg INHALATION Q6HWA.RT 30 Days #120 vial.neb. 05/07/18 [Rx Last Taken Unknown] albuterol sulfate 2.5 mg INHALATION Q4H PRN #25 vial 03/28/21 [Rx Last Taken Unknown] prednisone 60 mg PO DAILY #15 tablet 03/28/21 [Rx Last Taken Unknown] Allergy/AdvReac Type Severity Reaction Status Date / Time grass pollen Allergy Mild Other - Verified 04/02/21 17:38 sneezing and congestion mold Allergy Mild Other - Verified 04/02/21 17:38 sneezing iodine contrast Allergy Intermediate Other - Uncoded 04/02/21 17:38 hypotension sodium pentothal Allergy Intermediate Other - Uncoded 04/02/21 17:38 tongue numb ANTIBIOTIC AdvReac Upset Uncoded 04/02/21 17:38 Stomach Family History Mother Heart disease Hypertension Myocardial infarction Father Heart disease Myocardial infarction Sister Diabetes Heart disease pacemaker Surgical History History of colonoscopy History of esophagogastroduodenoscopy (EGD) History of total hip replacement S/P placement of cardiac pacemaker Total knee replacement status Total knee replacement status Social History Smoking Status: Never smoker alcohol intake: never substance use type: does not use ROS ROS ED Constitutional Constitutional ED: Denies chills or fever(s) Eyes Eyes: Denies blurry vision or change in vision ENT ENT ED: Reports sore throat; Denies rhinorrhea Cardiovascular Cardiovascular: Denies chest pain or palpitations Respiratory/Chest Respiratory/Chest: Reports cough and dyspnea Gastrointestinal Gastrointestinal: Denies nausea or vomiting Genitourinary Genitourinary ED: Denies dysuria or hematuria Musculoskeletal Musculoskeletal: Denies back pain or neck pain Integumentary Denies abscess or rash Neurologic Neurologic: Denies headache(s) or weakness Allergic/Immunologic Allergic/Immunologic ED: Denies mouth swelling or urticaria EXAM Physical Exam Const Vital Signs: 04/02/21 17:34 04/02/21 19:02 04/02/21 19:08 Temperature 97.2 F L 98.5 F Temperature Source Temporal Oral Pulse Rate 77 67 Respiratory Rate 18 28 H 18 Respiratory Effort Short of Breath Labored Respiratory Depth Normal Respiratory Pattern Tachypnea Blood Pressure 114/92 H 150/125 H Blood Pressure Mean 99 133 Pulse Ox 96 95 97 Oxygen Delivery Method Room Air Room Air Room Air 04/02/21 21:02 Temperature Temperature Source Pulse Rate 62 Respiratory Rate 19 H Respiratory Effort Respiratory Depth Respiratory Pattern Blood Pressure 125/107 H Blood Pressure Mean 113 Pulse Ox 93 Oxygen Delivery Method Room Air Positive well nourished, well developed and obese General Appearance ED: well developed Nutritional Appearance: obese HEENT Reports moist mucous membranes Neck supple and no JVD Resp normal respiratory effort Auscultation: rhonchi throughout Cardio regular rate, regular rhythm and no murmurs GI normal to inspection, nondistended, normoactive bowel sounds and non-tender Palpation: soft Extremity normal to inspection General Extremety ED: Negative for edema or tenderness General Extremity: Negative for edema Neuro oriented x3, CN's II-XII intact bilaterally and no sensory deficits noted Sensorium / Orientation: alert Motor Exam: strength 5/5 throughout Psych mental status grossly normal Skin no rashes or lesions noted MDM MDM MDM Narrative Medical decision making narrative: Portable chest x-ray was obtained. There is 1 view. On my interpretation, there are bilateral patchy infiltrates consistent with viral pneumonia. Bony thorax is normal. There is no cardiomegaly. Radiologist also interpreted the x-rays and agrees. CBC shows a mild leukocytosis of 12.5. Basic metabolic profile showed a slightly elevated BUN of 32 and a creatinine 1.28. EKG was obtained. On my interpretation, it showed a atrial paced rhythm with a rate of 71. QRS interval and QTc intervals were normal. There is borderline left axis deviation -29. There is criteria for left ventricular hypertrophy. There are no acute ST or T wave changes. Patient was ambulated in the room on room air. Patient's pulse oximeter dropped to 86%. Patient was placed on oxygen. Case was discussed with the hospitalist. He recommended obtaining a D-dimer and if that is positive to do a CTA of the chest. He will admit the patient to the hospital. Patient understands and is agreeable with the plan. All questions were answered. Lab Data Labs: Laboratory Results - last 24 hr 04/02/21 04/02/21 19:06 19:06 WBC 12.5 H RBC 4.49 Hgb 13.1 Hct 40.5 MCV 90.2 MCH 29.2 MCHC 32.3 RDW Std Deviation 44.3 H RDW Coeff of Yecenia 13.3 Plt Count 278 MPV 9.4 Neut % (Auto) Not Reportable Absolute Neuts (auto) 11.4 H Absolute Lymphs (auto) 0.50 L Total Counted 100 Neutrophils % (Manual) 87 H Band Neutrophils % 4 Lymphocytes % (Manual) 4 L Monocytes % (Manual) 3 Myelocytes % 2 H Diff Path Review May foll Platelet Estimate ADEQUATE RBC Morphology N CHROM Anisocytosis RARE Macrocytosis RARE Sodium 134 L Potassium 4.4 Chloride 99 Carbon Dioxide 26.0 Anion Gap 9 BUN 32 H Creatinine 1.28 H Estim Creat Clear Calc 31.28 Est GFR (MDRD) Af Amer 52 L Est GFR (MDRD) Non-Af 43 L BUN/Creatinine Ratio 25.0 H Glucose 128 H Calcium 9.5 Radiography Diagnostic Testing: Clinical Impression(s) from Imaging Studies Chest X-Ray 04/02/21 18:18 IMPRESSION: Bilateral pneumonia. Electronically Signed: Ji Santiago MD at 19:01 EST , Service support , EKG Initial EKG: Attestation: I personally reviewed and interpreted this EKG as follows: Interpretation: Paced Comments: Left ventricular hypertrophy Prior EKG tracings: available for review Prior: Unchanged (03/28/2021) Treatment and Re-Evaluation Vital Sign Attestation:: Vital signs were reviewed prior to admission. They are stable. Discharge Plan Dx/Rx/DC Orders Clinical Impression: Pneumonia due to COVID-19 virus, Hypoxia Disposition Disposition: Acute Care [facility]
--- NOTE | 2021-04-02 22:23 | HP.PCM.HOS_ITS ---
HPI - General General Date of Admission: 04/02/21 HPI Narrative GISELLA AUGUSTE, is a 80 F with symptoms of cough, shortness of breath 2 to 3 days prior to Covid testing positive on 03/22/2021 was sent to ER for worsening of shortness of breath and cough. The patient has history of bronchie ctasis/chronic bronchitis for long time but has been good for past 3 years. She is coughing up yellowish sputum with mild sore throat. Denies fever or chills. No chest pain. In ED triage vitals shows labored breathing, tachypnea and hypoxia on exertion therefore patient being admitted. Labs reviewed. Mild leukocytosis with lymphopenia. D-dimer elevated. BUN/creatinine elevated with estimated creatinine clearance 31 mL/min. Chest x- ray shows bilateral infiltrates consistent with pneumonia. EKG atrial sensed ventricular paced rhythm with LVH at 71 bpm QTC 512 ms. She said 6 of her family members in the house have symptoms of Covid and tested positive. She was exposed around 03/18 by her condition. 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 Shortness of breath Sick sinus syndrome Sinus pain Sinusitis SVT (supraventricular tachycardia) Syncope Vitamin D deficiency Home Medications cholecalciferol (vitamin D3) 125 mcg (5,000 unit) capsule 5,000 unit PO DAILY 05/06/17 [History Last Taken 05/01/18] omeprazole 20 mg capsule,delayed release 20 mg PO DAILY 05/06/17 [History Last Taken 05/03/18] albuterol sulfate 90 mcg/actuation aerosol inhaler 1 - 2 puff INHALATION Q4H PRN PRN #1 device 08/31/17 [Rx Last Taken Unknown] lisinopril 10 mg PO DAILY 05/03/18 [History Last Taken 05/02/18] albuterol sulfate 2.5 mg INHALATION Q6HWA.RT 30 Days #120 vial.neb. 05/07/18 [Rx Last Taken Unknown] albuterol sulfate 2.5 mg INHALATION Q4H PRN #25 vial 03/28/21 [Rx Last Taken Unknown] prednisone 60 mg PO DAILY #15 tablet 03/28/21 [Rx Last Taken Unknown] Allergy/AdvReac Type Severity Reaction Status Date / Time grass pollen Allergy Mild Other - Verified 04/02/21 17:38 sneezing and congestion mold Allergy Mild Other - Verified 04/02/21 17:38 sneezing Iodine and Iodide Containing Allergy Low blood Verified 04/02/21 22:47 Produc pressure iodine contrast Allergy Intermediate Other - Uncoded 04/02/21 17:38 hypotension sodium pentothal Allergy Intermediate Other - Uncoded 04/02/21 17:38 tongue numb ANTIBIOTIC AdvReac Upset Uncoded 04/02/21 17:38 Stomach Family History Mother Heart disease Hypertension Myocardial infarction Father Heart disease Myocardial infarction Sister Diabetes Heart disease pacemaker Surgical History History of colonoscopy History of esophagogastroduodenoscopy (EGD) History of total hip replacement S/P placement of cardiac pacemaker Total knee replacement status Total knee replacement status Social History Smoking Status: Never smoker alcohol intake: never substance use type: does not use ROS Constitutional Constitutional: Reports anorexia and fatigue Eyes Eyes: Denies blurry vision, change in eye color, change in vision, discharge from eye(s), double vision, erythema, eye pain, loss of vision or other ENT HEENT: Denies abnormal hearing, dysphagia, ear pain, epistaxis, headache(s), hearing loss, nasal congestion, nasal discharge, post nasal drip, sinus pressure, sore throat or other Cardiovascular Cardiovascular: Reports dyspnea on exertion and edema Respiratory/Chest Respiratory/Chest: Reports cough, dyspnea and shortness of breath with exertion Gastrointestinal Gastrointestinal: Denies abdominal pain, coffee ground emesis, constipation, diarrhea, dyspepsia, hematemesis, hematochezia, loose stools, melena, nausea, vomiting or other Genitourinary Genitourinary: Denies burning urination, difficulty urinating, dysuria, hematuria, nocturia, urinary frequency, urinary hesitancy, urinary incontinence, urinary urgency or other Musculoskeletal Musculoskeletal: Reports arthralgias, joint pain and myalgias Neurologic Neurologic: Denies abnormal speech, confusion, disequilibrium, dizziness, focal weakness, headache(s), numbness, paresthesias, seizure-like activity, seizures, syncope, tingling, tremor(s) or other Psychiatric Psychiatric: Reports anxiety and depression Vital Signs Vital Signs Vital Signs: 04/02/21 17:34 04/02/21 19:02 04/02/21 19:08 Temperature 97.2 F L 98.5 F Temperature Source Temporal Oral Pulse Rate 77 67 Respiratory Rate 18 28 H 18 Respiratory Effort Short of Breath Labored Respiratory Depth Normal Respiratory Pattern Tachypnea Blood Pressure 114/92 H 150/125 H Blood Pressure Mean 99 133 Pulse Ox 96 95 97 Oxygen Delivery Method Room Air Room Air Room Air Oxygen Flow Rate (L/min) 04/02/21 21:02 04/02/21 22:12 Temperature Temperature Source Pulse Rate 62 Respiratory Rate 19 H Respiratory Effort Respiratory Depth Respiratory Pattern Blood Pressure 125/107 H Blood Pressure Mean 113 Pulse Ox 93 94 Oxygen Delivery Method Room Air Nasal Cannula Oxygen Flow Rate (L/min) 2 Weight Weight: 238 lb Body Mass Index (BMI) 40.8 Physical Exam Const alert and oriented x3 General Appearance: cooperative HEENT normocephalic and head/scalp atraumatic Eyes PERRL and EOMs intact bilaterally Neck no lymphadenopathy Resp Resp Narrative: Air entry diminished B/L Auscultation: crackles, rhonchi and wheezes Cardio S1 normal heart sound, S2 normal heart sound and no murmurs Cardio Narrative: PACED rhythm GI normal to inspection, nondistended, normoactive bowel sounds Extremity Extremity Narrative: Chronic leg edema Skin no rashes or lesions noted Neuro oriented x3 and CN's II-XII intact bilaterally Sensorium / Orientation: awake, alert, oriented to person, oriented to place and oriented to time Psych Mood & Affect: anxious Results Lab / Micro Data Result Diagrams: 04/02/21 19:06 04/02/21 19:06 Labs: Laboratory Results - last 24 hr 04/02/21 19:06: WBC 12.5 H, RBC 4.49, Hgb 13.1, Hct 40.5, MCV 90.2, MCH 29.2, MCHC 32.3, RDW Std Deviation 44.3 H, RDW Coeff of Yecenia 13.3, Plt Count 278, MPV 9.4, Neut % (Auto) Not Reportable, Absolute Neuts (auto) 11.4 H, Absolute Lymphs (auto) 0.50 L, Total Counted 100, Neutrophils % (Manual) 87 H, Band Neutrophils % 4, Lymphocytes % (Manual) 4 L, Monocytes % (Manual) 3, Myelocytes % 2 H, Diff Path Review May foll, Platelet Estimate ADEQUATE, RBC Morphology N CHROM, An isocytosis RARE, Macrocytosis RARE 04/02/21 19:06: Sodium 134 L, Potassium 4.4, Chloride 99, Carbon Dioxide 26.0, Anion Gap 9, BUN 32 H, Creatinine 1.28 H, Estim Creat Clear Calc 31.28, Est GFR (MDRD) Af Amer 52 L, Est GFR (MDRD) Non-Af 43 L, BUN/Creatinine Ratio 25.0 H, Glucose 128 H, Calcium 9.5 Radiology Impression Chest X-Ray 04/02/21 18:18 IMPRESSION: Bilateral pneumonia. Electronically Signed: Ji Santiago MD at 19:01 EST , Service support , Assessment & Plan Assessment/Plan (1) COVID-19: PLAN: 1. Acute B/L COVID Pneumonia with hypoxia: The patient is admitted to med surg unit. Decadron 6 mg daily. Pt is not candidate of IV Remdesvir as out of Window. D-dimer elevated, CTA ordered by ED physician but she is alergic to Idione contrast and so IV Solumedrol and Bendryl given. Pt has H/o DVT in leg and H/o hematoma after BP cuff inflated and vessel ruptured in her arm. Lovenox 30 mg sq now and if CTA positive for PE, will start on IV heparin drip. 2. H/o allergic rhinitis, bronchitis and MONTRELL: [facility] follows [facility] Martins, [facility] PFT in 07/2018 reported as Lung volumes are at the lower limit of normal, but DLCO is reduced out of proportion indicating a probable p ulmonary vascular disorder. Early interstitial lung disease cannot be excluded. Continue bronchodilator 3. CKD stage 3b: Estimated Cr Cl is 31-40 ml/min.Continue IV fluid NS to prevent JEREMIAH. 4. SSS S/P pacemaker, Bradycardia, hypertension: BP is high. Home meds resumed. 5 Morbid obesity: BMI 40.9 kg/m2. wt loss counselling done. DVT prophylaxis: as mentioned above Advance directive: The patient DOESN'T have advance directive. Next to kin is her . After discussion of full code, DNRCC-A AND DNRCC and procedures involved with that, She selected full code. Time spent 16 mins Charges/Coding Visit Charges OBSV E&M: 51681 Initial observation care L3 Procedures Hospitalists Procedures: 52571 Advncd Care Plan 30 Min
[2021-04-02 22:40] LABS: D-Dimer Quantitative (DVT/PE) 1.57 FEU/ug/m (0.27-0.49)
[2021-04-02] MEDS: DiphenhydrAMINE 50 MG/ML Syringe IV (23:07)
[2021-04-02] MEDS: MethylPREDNISolone 125 MG/2 ML Vial IV (23:07)
[2021-04-02 23:35] LABS: Fibrinogen 569 mg/dl (203-444); Prothrombin Time (Protime)PT. 12.9 SECONDS (11.7-14.9)
[2021-04-02 23:50] LABS: AST(SGOT) 28 U/L (15-37); Alanine Aminotransfer ALT/SGPT 75 U/L (13-56); Alkaline Phosphatase 54 U/L (45-117); Bilirubin, Direct 0.45 mg/dL (0.00-0.30); CPK Total, Creatine Kinase 64 U/L (26-192); Globulin 4.5 g/dL (2.2-4.2); LDH 323 U/L (84-246); Magnesium 2.3 mg/dL (1.6-2.6); Protein, Total 7.5 g/dL (6.4-8.2); Troponin-I HS 8 pg/mL (3.0-54.0)
[2021-04-03] VITALS (13 sets, daily range): BP systolic 109–182; BP diastolic 54–104; PULSE 60–97; RESP 16–20; TEMP 36.1–36.9; O2SAT 94–97; BMI 40.8
[2021-04-03 00:36] LABS: Lactic Acid 1.4 mmol/L (0.4-1.9)
--- NOTE | 2021-04-03 00:52 | VDLE_ITS ---
Reason For Study: Shortness of breath RIGHT LEFT GSV is normal. GSV is normal. CFV, FV, and PopV are compressible. CFV, FV, and PopV are compressible. T/P Trunk is compressible. T/P Trunk is compressible. PTV is compressible. PTV is compressible. RT PerV is compressible. LT PerV is compressible. Procedure This is a venous duplex using B-mode, color flow and spectral Doppler. Exam performed portable in patient room. The exam was abbreviated due to the COVID 19 protocol. A preliminary report was called and/or faxed to PCU client delivery manager. VL/Venous Duplex US - Brent Extrem Interpretation Summary No evidence for acute deep venous thrombosis bilateral lower extremities with p atent and compressible bilateral great saphenous veins. Covid 19 protocol Ordering Physician: Woodrow Epstein Referring Physician: Oumar Wiseman Performed By: Linda Garvey RVT
--- NOTE | 2021-04-03 01:28 | PCS.PANDOC ---
PANDEMIC DOCUMENTATION INITIATED: Date: 12/15/2020 Time: 190
[2021-04-03] MEDS: 0.9% Normal Saline 1,000 ML 50 ML IV (01:30)
[2021-04-03] MEDS: Senna/Docusate Sodium 1 Tablet 2 TABLET PO ×2 (01:32→08:48)
[2021-04-03] MEDS: guaiFENesin 1,200 MG Tablet 1200 MG PO ×3 (01:32→21:47)
[2021-04-03] MEDS: 0.9% Saline Lock 10 ML Syringe IV (01:32)
[2021-04-03] MEDS: Heparin Injection (Vial) 5,000 UNIT/ML VIAL 5000 UNIT SC ×3 (05:58→21:47)
[2021-04-03 07:28] LABS: Hematocrit 37.6 % (37-47); Mean Corp Hgb Conc 31.9 g/dL (32-36); Mean Corpuscular Volume 90.8 fL (81-99); Mean Platelet Vol. 9.4 fl (6.2-12.0); POSITIVE COUNT YES; POSITIVE MORPHOLOGY YES; Platelet Count 249 K/mm3 (150-450); RBC Distribution Width CV 13.2 % (11.6-14.6); RBC Distribution Width SD 44.5 fl (35.1-43.9); Red Blood Count 4.14 M/mm3 (4.2-5.4); White Blood Count 12.2 K/mm3 (4.4-11.0)
[2021-04-03] MEDS: Albuterol 2.5 MG/3 ML VIAL.NEB. INHALATION ×3 (07:29→20:10)
--- NOTE | 2021-04-03 07:29 | PCM.PN.HOSP ---
Subjective Subjective Patient overnight since presentation with no acute events however upon morning evaluation with any increased effort including recent ambulation of the bathroom patient was significantly tachypneic with respiratory rate in the 30s and heart rate increased into the 130s with significant evidenced increased work of breathing and respiratory distress which required a notable amount of time to improve. Patient still requiring 2 L nasal cannula and has not increased from this but did feel significantly short of breath especially with exertion. Patient denies fevers, chills, nausea, emesis, abdominal pain, chest pain. Objective Data Objective Data Vital Signs: Vital Signs Temp Pulse Resp BP Pulse Ox 98.5 F 97 16 147/60 H 97 04/03/21 02:30 04/03/21 02:30 04/03/21 02:30 04/03/21 02:30 04/03/21 02:30 Oxygen Flow Rate (L/min) 2 Oxygen Delivery Method Nasal Cannula Weight: 238 lb 12.17 oz Body Mass Index (BMI) 40.8 Intake & Output: Intake and Output for Last 24 Hours 04/01/21 04/02/21 04/03/21 23:59 23:59 23:59 Intake Total 1000 / 1000 Balance 1000 / 1000 Lab / Micro Data Result Diagrams: 04/03/21 07:10 04/03/21 07:10 Labs: Laboratory Results - last 24 hr 04/02/21 00:00: Procalcitonin 0.20 H 04/02/21 19:05: Magnesium 2.3, Total Bilirubin 1.00, Direct Bilirubin 0.45 H, AST 28, ALT 75 H, Alkaline Phosphatase 54, Lactate Dehydrogenase 323 H, Total Creatine Kinase 64, Troponin I High Sens 8, C-React Prot Ext Range 24.90 H, Total Protein 7.5, Albumin 3.0 L, Globulin 4.5 H 04/02/21 19:06: WBC 12.5 H, RBC 4.49, Hgb 13.1, Hct 40.5, MCV 90.2, MCH 29.2, MCHC 32.3, RDW Std Deviation 44.3 H, RDW Coeff of Yecenia 13.3, Plt Count 278, MPV 9.4, Neut % (Auto) Not Reportable, Absolute Neuts (auto) 11.4 H, Absolute Lymphs (auto) 0.50 L, Total Counted 100, Neutrophils % (Manual) 87 H, Band Neutrophils % 4, Lymphocytes % (Manual) 4 L, Monocytes % (Manual) 3, Myelocytes % 2 H, Diff Path Review May foll, Platelet Estimate ADEQUATE, RBC Morphology N CHROM, Anisocytosis RARE, Macrocytosis RARE 04/02/21 19:06: Sodium 134 L, Potassium 4.4, Chloride 99, Carbon Dioxide 26.0, Anion Gap 9, BUN 32 H, Creatinine 1.28 H, Estim Creat Clear Calc 31.28, Est GFR (MDRD) Af Amer 52 L, Est GFR (MDRD) Non-Af 43 L, BUN/Creatinine Ratio 25.0 H, Glucose 128 H, Calcium 9.5 04/02/21 19:06: D-Dimer Quant (PE/DVT) 1.57 H* 04/02/21 19:06: PT 12.9, INR 1.0, Fibrinogen 569 H 04/02/21 19:06: B-Natriuretic Peptide 53.0 04/02/21 23:16: Lactic Acid 1.4 04/02/21 23:42: COVID-19 ([id number]) Detected Micro: Microbiology 04/02/21 23:42 Mucosa - Nasopharyngeal Respiratory Panel (PCR) - Final Radiography Diagnostic Testing: Radiology Impression Chest X-Ray 04/02/21 18:18 IMPRESSION: Bilateral pneumonia. Electronically Signed: Ji Santiago MD at 19:01 EST , Service support , Chest CTA 04/03/21 22:41 IMPRESSION: Negative CTA chest examination, without a demonstrated pulmonary embolism or arterial dissection. Diffuse bilateral multifocal pneumonitis. Electronically Signed: Trinity Calhoun MD at 2:37 EST , Service support , Physical Exam Narrative Physical Examination: General: Awake, alert, oriented x 3 and cooperative, seated upright in the PCU bed, currently at rest, no acute distress, denies significant dyspnea but patient was up following evaluation and did following note significant dyspnea with evidence of respiratory distress. Skin: Normal color, normal turgor, no icterus, no cyanosis. HEENT: AT/NC, EOMI, PERRLA, dry MM. Lungs: Patient seated evaluation with significantly diffusely diminished breath sounds, greater bases, no evidence of respiratory distress however patient up and walking to the bathroom and following this with significant evidence of respiratory distress with increased work of breathing accessory muscle usage no rales, ronchi or wheezing. Heart: Regular rate and rhythm when rested but when patient was up she became significantly tachycardic; no gallop, rub audible. Abdomen: Soft, morbidly obese, NTTP, no obvious distention, distant hypoactive bowel sounds. Extremities: No cyanosis, no clubbing, mild bilateral ankle nonpitting edema. Neurological: Patient awake, alert, oriented as noted, cognitive function intact; pupils equally reactive to light and accommodation, cranial nerves II-XII grossly normal, moving all 4 extremities, no focal deficits, strength moderately to severely global decreased secondary to acute presentation. Psychiatric: Affect appears fatigued, ill-appearing, no acute evidence of depressive or anxiety feelings. Assessment & Plan Assessment/Plan (1) Pneumonia due to COVID-19 virus: (2) Hypoxia: PLAN: The patient is a 80 y/o F w/ PMHx: Asthma, Hx sick sinus syndrome s/p pacemaker status, HTN, HLD, Morbid Obesity, MONTRELL on BIPAP q HS, GERD who presents to the [facility] ED on 04/02/21 with history of onset of Covid type symptoms with cough and primarily shortness of breath on 03/19/2021 with Covid positive testing 03/22/2021 with history of vaccination status receiving remotely Moderna dosing x 2 but had not yet received a booster with eventual worsening status with tachypnea and hypoxia prompting ED evaluation. #1. Acute Hypoxia secondary to Acute Bilateral Pneumonia secondary to Acute Viral Syndrome, COVID-19 with remote Moderna vaccination, had not yet received her booster: Admitted to PCU, CTPA with no PE evident with diffuse bilateral multifocal pneumonitis, maintain on COVID precautions, will maintain on oxygen with wean as tolerated to room air, PRN albuterol, HOB, IS parameters, Covid inflammatory panel obtained upon presentation, pending sputum cultures, negative respiratory viral panel, negative urine antigens, continue supportive care including q 2 hour turning including prone given no prone bed availability and judicious hydration, closely monitor for worsening status for ARDS and multiorgan failure, initiated and continued IV decadron x 10 doses, given timeline she is not remdesivir candidate. If respiratory status worsens and patient requires airvo or BIPAP transition will initiate barcitinib regimen additionally with ID involvement. #2. Mild acute renal insufficiency on Chronic Kidney Disease Stage III, unclear subtype: Admission BUN/Cr 32/1.28, baseline renal function 0.8-0.9, 04/03/2021 BUN/creatinine 30/1.20, continue to closely monitor. #3. Chronic asthma with allergic rhinitis: Continue oxygen wean as noted above, will continue scheduled albuterol treatments with additionally as needed, encourage head of bed and I-S usage. #4. History of sick sinus syndrome: Status post pacemaker placement. #5. Morbid Obesity: Weight loss and lifestyle changes encouraged. #6. Hypertension: Continue home regimen including lisinopril, PRN hydralazine. #7. Hyperlipidemia: Not on regimen, defer to outpatient. #8. GERD: We will maintain on home PPI. #9. MONTRELL: Patient supposed to be on BiPAP nightly, will order. Previous note 9/5 cm H2O. #10. DVT prophylaxis: SCDs, Lovenox. #11. CODE STATUS: Full code. Charges/Coding Visit Charges Inpatient E&M: 62657 Subs Hosp L2
[2021-04-03 07:31] LABS: Differential Indicated MANUAL DIFF
[2021-04-03 07:53] LABS: Lymphocyte 6 % (19-41); Metamyelocyte 3 % (0-1); Monocyte 6 % (0-10); Myelocyte 1 % (0-0); Neutrophil-Segmented 84 % (47-70); Total Cells Counted 100 (MANUAL DIFF)
[2021-04-03 07:54] LABS: Platelet Estimate ADEQUATE (ADEQ); Red Cell Morphology NORM C+C NORMAL (NORM C&C)
[2021-04-03 07:55] LABS: Absolute Lymphocyte Count 0.73 X10^3/uL (0.83-4.51); Absolute Neutrophil Count 10.2 X10^3/uL (2.0-7.7)
[2021-04-03 08:21] LABS: ALB/GLOB Ratio 0.6 RATIO (0.9-2.4); AST(SGOT) 24 U/L (15-37); Alanine Aminotransfer ALT/SGPT 61 U/L (13-56); Albumin, Serum 2.4 g/dL (3.2-5.0); Alkaline Phosphatase 49 U/L (45-117); Anion Gap 6 (5-15); BUN 30 mg/dL (7-18); Calcium,Total 8.7 mg/dL (8.5-10.1); Chloride 103 mmol/L (98-107); EST Glomerular Filtration Rate 46 mL/min (>60); Est Glom Filt Rate - Afr Amer 56 mL/min (>60); Estimated Creatinine Clearance 33.36 ml/min; Globulin 4.1 g/dL (2.2-4.2); Glucose 112 mg/dL (74-106); Potassium 4.8 mmol/L (3.5-5.1); Protein, Total 6.5 g/dL (6.4-8.2); Sodium Level 135 mmol/L (136-145)
[2021-04-03] MEDS: dexAMETHasone 4 MG Tablet 6 MG PO (08:48)
[2021-04-03] MEDS: Cholecalciferol (VIT D3) 25 MCG TABLET (1,000 UNITS) 125 MCG PO (08:48)
[2021-04-03] MEDS: Pantoprazole Sodium 20 MG Tablet PO (08:48)
--- NOTE | 2021-04-03 10:44 | NURSING ---
Pt gt up to bathroom with LINE LOCATOR. Pt unable to make it to bathroom per LINE LOCATOR d/t becoming very SOB. This RN into room to check on pt, pt in bed RR 32 HR 78 Spo2 93% 2LNC. BSC and walker placed in room, purewick placed. After few minutes pt's breathing slowing and stated she now longer feels as SOB. Dr Freeman notified.
[2021-04-03] MEDS: Lisinopril 10 MG Tablet PO (13:22)
--- NOTE | 2021-04-03 14:53 | CASEMGMT ---
ADRIANA SOW assessment: Initial transition planning/care coordination assessment. RN JUANJOSE introduced self and role at [facility], pt voices understanding and consents to assessment. Pt is on 2L nc and speaks in full sentences. Pt is A/Ox4 and answers all questions appropriately. Pt states is vaccinated for COVID. Pt states is at hoe and feeling better. Pt states no concerns getting resources at home. Pt states was tested at [facility] urgent care. Care providers, pharmacy, and demographics verified/updated. 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 Pt states her and daughter are HPOA's. LNOK: Tom Jansen, /HPOA; Geeta Cortez, daughter Living Arrangements: Pt lives with in 2 story home and states no concerns at home. Pt is independent with ADL's. Transportation: Pt states drives self and states no transportation concerns. DME/HHC: Pt states has the following DME: cane, walker, grab bars, shower chair, and nebulizer thru [employer]. Pt states no need for any further DME, but if qualifies for home oxygen then she would like [employer]. Pt states has had HHC in the past and has been to [facility] rehab in the past. Green sheet on chart for home oxygen. Pt states no concerns with going home at time of discharge. Pt is retired. Pt states does not smoke cigarettes but does occasionally drink ETOH. Pt voices no further concerns/needs. CM to follow for home oxygen testing and any further discharge planning/needs. Advised pt to ask for CM if any further questions/concerns/needs arise, voices understanding. Pt Goal: Home Plan: Home, pending home oxygen testing. [place] ADRIANA SOW
[2021-04-03] MEDS: Ceftriaxone 1 GM/50 ML BAG IV (15:18)
[2021-04-03 18:26] LABS: Mucous, Urine 0 SEEN /hpf (<or=2+); Red Blood Cells-Urine 0 SEEN /hpf (0-5)
[2021-04-03 18:30] LABS: Color, Urine Yellow (Yellow); Glucose, Dipstick Normal (Normal); Ketone-Dipstick Negative (Negative); Leukocyte Esterase-Dipstick 25 /ul (Negative); Nitrite-Dipstick Positive (Negative); Occult Blood-Urine Negative /ul (Negative); Protein-Dipstick Negative (Negative); Urine Bilirubin Dipstick Negative (Negative); Urine Clarity Clear (Clear); Urine Urobilinogen Normal (Normal)
[2021-04-03 18:35] LABS: Bacteria RARE /hpf (None Seen); Squamous Epithelial Cells - UA 0-5 SEEN /hpf (5-10); White Blood Cells 0-5 SEEN /hpf (0-5)
--- NOTE | 2021-04-03 21:09 | CPS ---
Pt requests to wear oxygen instead of PAP therapy at this time
--- NOTE | 2021-04-03 22:41 | CT_ITS ---
STUDY: CTA CHEST REASON FOR EXAM: Female, 80 years old. elevated D-dimer RADIATION DOSAGE (If Supplied By Facility): CTDIvol = ( 15.04 ) mGy, DLP = ( 481.97 ) mGycm TECHNIQUE: The examination was performed with the intravenous administration of IV 100mL Isovue-370. Post-processing of the angiographic images was performed, with multiplanar reformation and 3D reconstruction. Individualized dose optimization techniques were used for this CT. COMPARISON: None. FINDINGS: There is a left-sided pacemaker in place. Normal enhancement of the main pulmonary artery and right and left pulmonary arteries. Normal enhancement of the bilateral peripheral pulmonary arteries. There is no demonstrated pulmonary embolism. There is atherosclerotic calcification of the aortic arch with tortuosity. There is no demonstrated aortic dissection. Normal cardiac size with coronary artery calcifications. Normal mediastinum. Normal hilar regions. Normal visualized trachea and bronchi. The lungs are well expanded. Multifocal multilobar bilateral groundglass opacities consistent with pneumonitis. Normal pleura. Normal chest wall structures. Normal osseous structures. Possible mild diffuse fatty liver. Splenic calcifications consistent with splenic granulomata. Left upper renal pole simple cyst measuring 5.0 x 5.2 cm, otherwise not entirely included in the [id number]. Osteopenia with degenerative disease of the spine. CT/CTA Chest W/WO Contrast IMPRESSION: Negative CTA chest examination, without a demonstrated pulmonary embolism or arterial dissection. Diffuse bilateral multifocal pneumonitis. Electronically Signed: Trinity Calhoun MD at 2:37 EST , Service support ,
[2021-04-04] VITALS (11 sets, daily range): BP systolic 119–147; BP diastolic 43–65; PULSE 60–93; RESP 16–20; TEMP 36.2–36.7; O2SAT 84–96
[2021-04-04] MEDS: Heparin Injection (Vial) 5,000 UNIT/ML VIAL 5000 UNIT SC ×3 (05:47→20:26)
[2021-04-04] MEDS: Albuterol 2.5 MG/3 ML VIAL.NEB. INHALATION ×3 (06:58→19:01)
[2021-04-04 07:20] LABS: Hematocrit 37.3 % (37-47); Hemoglobin 12.2 g/dL (12.0-15.0); Mean Corp Hgb Conc 32.7 g/dL (32-36); Mean Corpuscular Hgb 29.8 pg (27.0-32.0); Mean Platelet Vol. 9.4 fl (6.2-12.0); POSITIVE COUNT YES; POSITIVE MORPHOLOGY YES; Platelet Count 249 K/mm3 (150-450); RBC Distribution Width CV 13.4 % (11.6-14.6); RBC Distribution Width SD 45.1 fl (35.1-43.9)
[2021-04-04 07:41] LABS: ALB/GLOB Ratio 0.6 RATIO (0.9-2.4); AST(SGOT) 20 U/L (15-37); Alanine Aminotransfer ALT/SGPT 66 U/L (13-56); Albumin, Serum 2.4 g/dL (3.2-5.0); Alkaline Phosphatase 47 U/L (45-117); Anion Gap 6 (5-15); BUN 32 mg/dL (7-18); BUN/Creat Ratio 32.3 RATIO (10-20); Chloride 102 mmol/L (98-107); Creatinine, Serum 0.99 mg/dL (0.55-1.02); EST Glomerular Filtration Rate 57 mL/min (>60); Est Glom Filt Rate - Afr Amer 70 mL/min (>60); Estimated Creatinine Clearance 40.44 ml/min; Glucose 80 mg/dL (74-106); Potassium 4.3 mmol/L (3.5-5.1); Protein, Total 6.4 g/dL (6.4-8.2); Sodium Level 136 mmol/L (136-145)
[2021-04-04 07:46] LABS: Differential Indicated MANUAL DIFF
[2021-04-04 09:43] LABS: Lymphocyte 9 % (19-41); Metamyelocyte 1 % (0-1); Monocyte 4 % (0-10); Myelocyte 1 % (0-0); Neutrophil-Segmented 85 % (47-70); Platelet Estimate ADEQUATE (ADEQ); Red Cell Morphology NORM C+C NORMAL (NORM C&C); Total Cells Counted 100 (MANUAL DIFF)
[2021-04-04 09:44] LABS: Absolute Lymphocyte Count 1.17 X10^3/uL (0.83-4.51); Absolute Neutrophil Count 11.1 X10^3/uL (2.0-7.7)
[2021-04-04] MEDS: Cholecalciferol (VIT D3) 25 MCG TABLET (1,000 UNITS) 125 MCG PO (09:48)
[2021-04-04] MEDS: dexAMETHasone 4 MG Tablet 6 MG PO (09:48)
[2021-04-04] MEDS: Lisinopril 10 MG Tablet PO (09:49)
[2021-04-04] MEDS: Pantoprazole Sodium 20 MG Tablet PO (09:49)
[2021-04-04] MEDS: guaiFENesin 1,200 MG Tablet 1200 MG PO ×2 (09:49→20:25)
[2021-04-04] MEDS: Senna/Docusate Sodium 1 Tablet 2 TABLET PO ×2 (09:49→20:26)
[2021-04-04] MEDS: Ceftriaxone 1 GM/50 ML BAG IV (10:02)
--- NOTE | 2021-04-04 16:57 | PN.HOSP_ITS ---
Subjective Subjective Still SOB with exertion. Objective Data Objective Data Vital Signs: Vital Signs Temp Pulse Resp BP Pulse Ox 36.3 C L 93 18 119/48 L 94 04/04/21 15:09 04/04/21 15:23 04/04/21 15:09 04/04/21 15:09 04/04/21 15:09 Oxygen Flow Rate (L/min) [ 8 AMBULATING with Oxygen #3] Oxygen Flow Rate (L/min) [ 5 AMBULATING with Oxygen #2] Oxygen Flow Rate (L/min) [ 4 AMBULATING with Oxygen #1] Oxygen Flow Rate (L/min) [At 2 REST with Oxygen] Oxygen Flow Rate (L/min) 3 Oxygen Delivery Method Nasal Cannula Weight: 107.9 kg Body Mass Index (BMI) 40.8 Intake & Output: Intake and Output for Last 24 Hours 04/02/21 04/03/21 04/04/21 23:59 23:59 23:59 Intake Total 1000 / 1000 2210 / 2210 770 / 770 Output Total 800 / 800 Balance 1000 / 1000 2210 / 2210 -30 / -30 Lab / Micro Data Result Diagrams: 04/04/21 06:18 04/04/21 06:18 Labs: Laboratory Results - last 24 hr 04/03/21 18:20: Urine Color Yellow, Urine Clarity Clear, Urine pH 6.0, Ur Specific [place] 1.010, Urine Protein Negative, Urine Glucose (UA) Normal, Urine Ketones Negative, Urine Occult Blood Negative, Urine Nitrite Positive H, Urine Bilirubin Negative, Urine Urobilinogen Normal, Ur Leukocyte Esterase 25 H, Urine RBC 0 SEEN, Urine WBC 0-5 SEEN, Ur Squamous Epith Cells 0-5 SEEN, Urine Bacteria RARE, Urine Mucus 0 SEEN 04/04/21 06:18: WBC 13.0 H, RBC 4.10 L, Hgb 12.2, Hct 37.3, MCV 91.0, MCH 29.8, MCHC 32.7, RDW Std Deviation 45.1 H, RDW Coeff of [place]ecenia 13.4, Plt Count 249, MPV 9.4, Neut % (Auto) Not Reportable, Absolute Neuts (auto) 11.1 H, Absolute Lymphs (auto) 1.17, Total Counted 100, Neutrophils % (Manual) 85 H, Lymphocytes % (Manual) 9 L, Monocytes % (Manual) 4, Metamyelocytes % 1, Myelocytes % 1 H, Diff Path Review May foll, Platelet Estimate ADEQUATE, RBC Morphology NORM C+C 04/04/21 06:18: Sodium 136, Potassium 4.3, Chloride 102, Carbon Dioxide 28.0, Anion Gap 6, BUN 32 H, Creatinine 0.99, Estim Creat Clear Calc 40.44, Est GFR (MDRD) Af Amer 70, Est GFR (MDRD) Non-Af 57 L, BUN/Creatinine Ratio 32.3 H, Glucose 80, Calcium 9.0, Total Bilirubin 0.50, AST 20, ALT 66 H, Alkaline Phosphatase 47, Total Protein 6.4, Albumin 2.4 L, Globulin 4.0, Albumin/Globulin Ratio 0.6 L Micro: Microbiology 04/03/21 18:20 Urine, Clean Catch Urine Culture - Preliminary Culture exhibits no growth. 04/03/21 06:20 Sputum, Expectorated/Coughed Gram Stain - Final 04/03/21 06:20 Sputum, Expectorated/Coughed Respiratory Culture - Preliminary Appears to be normal respiratory rashaad. Further studies to follow. 04/03/21 00:03 Blood Culture (Wb) - Right Wrist Blood Culture - Final Presumptive E. coli 04/02/21 00:00 Blood Culture (Wb) - Anticubital Left Blood Culture - Preliminary Presumptive E. coli 04/03/21 06:35 Urine, Clean Catch Legionella Antigen - Final 04/03/21 06:35 Urine, Clean Catch Streptococcus pneumoniae Antigen (M - Final 04/02/21 23:42 Mucosa - Nasopharyngeal Respiratory Panel (PCR) - Final Radiography Diagnostic Testing: Radiology Impression Venous Doppler Study 04/03/21 00:52 Interpretation Summary No evidence for acute deep venous thrombosis bilateral lower extremities with patent and compressible bilateral great saphenous veins. Covid 19 protocol Ordering Physician: Woodrow Epstein Referring Physician: Oumar Wiseman Performed By: Linda Garvey RVT Physical Exam Const alert and no apparent distress Resp normal respiratory effort, no retractions, no use of accessory muscles and clear to auscultation bilaterally Cardio regular rate, regular rhythm, S1 normal heart sound and S2 normal heart sound GI normal to inspection, nondistended, normoactive bowel sounds, soft to palpation, non-tender and non-distended Neuro Sensorium / Orientation: awake and alert Assessment & Plan Assessment/Plan (1) Pneumonia due to COVID-19 virus: (2) Acute and chronic respiratory failure with hypoxia: PLAN: 1. acute hypoxic respiratory failure * 2/2 covid 19 * wean oxygen as able * furosemide challenge 2. acute COVID 19 pneumonia * vaccinated ([employer]), no booster * on dexamethasone, out of window for remdesivir 3. VTE prophylaxis: LMWH Charges/Coding Visit Charges Inpatient E&M: 91236 Subs Hosp L2
[2021-04-04] MEDS: Furosemide 40 MG/4 ML Vial IV (17:49)
[2021-04-05] VITALS (15 sets, daily range): BP systolic 103–134; BP diastolic 48–98; PULSE 63–99; RESP 18–22; TEMP 36.1–36.7; O2SAT 85–99
[2021-04-05 05:02] LABS: Hematocrit 37.4 % (37-47); Hemoglobin 12.5 g/dL (12.0-15.0); Mean Corp Hgb Conc 33.4 g/dL (32-36); Mean Corpuscular Hgb 29.9 pg (27.0-32.0); Mean Corpuscular Volume 89.5 fL (81-99); Mean Platelet Vol. 9.4 fl (6.2-12.0); POSITIVE COUNT YES; POSITIVE MORPHOLOGY YES; Platelet Count 232 K/mm3 (150-450); RBC Distribution Width CV 13.5 % (11.6-14.6); RBC Distribution Width SD 44.5 fl (35.1-43.9); Red Blood Count 4.18 M/mm3 (4.2-5.4); White Blood Count 12.9 K/mm3 (4.4-11.0)
[2021-04-05 05:19] LABS: Differential Indicated MANUAL DIFF
[2021-04-05 05:33] LABS: ALB/GLOB Ratio 0.6 RATIO (0.9-2.4); AST(SGOT) 19 U/L (15-37); Alanine Aminotransfer ALT/SGPT 61 U/L (13-56); Albumin, Serum 2.3 g/dL (3.2-5.0); Alkaline Phosphatase 48 U/L (45-117); Anion Gap 9 (5-15); BUN 43 mg/dL (7-18); BUN/Creat Ratio 37.7 RATIO (10-20); Calcium,Total 9.8 mg/dL (8.5-10.1); Chloride 98 mmol/L (98-107); Creatinine, Serum 1.14 mg/dL (0.55-1.02); EST Glomerular Filtration Rate 49 mL/min (>60); Est Glom Filt Rate - Afr Amer 59 mL/min (>60); Estimated Creatinine Clearance 35.12 ml/min; Globulin 4.1 g/dL (2.2-4.2); Glucose 114 mg/dL (74-106); Protein, Total 6.4 g/dL (6.4-8.2); Sodium Level 133 mmol/L (136-145)
[2021-04-05 05:53] LABS: Lymphocyte 10 % (19-41); Metamyelocyte 1 % (0-1); Monocyte 3 % (0-10); Myelocyte 1 % (0-0); Neutrophil-Segmented 85 % (47-70); Platelet Estimate ADEQUATE (ADEQ); Reactive Lymphocyte RARE; Red Cell Morphology NORM C+C NORMAL (NORM C&C); Total Cells Counted 100 (MANUAL DIFF)
[2021-04-05 05:54] LABS: Absolute Lymphocyte Count 1.29 X10^3/uL (0.83-4.51); Absolute Neutrophil Count 10.9 X10^3/uL (2.0-7.7); Lymphocyte # 1.29 X10^3/ul (0.83-4.51); Neutrophil # 10.94 X10^3/uL (2.7-7.7)
[2021-04-05] MEDS: Heparin Injection (Vial) 5,000 UNIT/ML VIAL 5000 UNIT SC ×3 (06:37→20:42)
[2021-04-05] MEDS: Albuterol 2.5 MG/3 ML VIAL.NEB. INHALATION ×3 (06:38→20:12)
[2021-04-05] MEDS: Pantoprazole Sodium 20 MG Tablet PO (09:44)
[2021-04-05] MEDS: Senna/Docusate Sodium 1 Tablet 2 TABLET PO ×2 (09:44→20:42)
[2021-04-05] MEDS: dexAMETHasone 4 MG Tablet 6 MG PO (09:44)
[2021-04-05] MEDS: Ceftriaxone 1 GM/50 ML BAG IV (09:44)
[2021-04-05] MEDS: Cholecalciferol (VIT D3) 25 MCG TABLET (1,000 UNITS) 125 MCG PO (09:44)
[2021-04-05] MEDS: guaiFENesin 1,200 MG Tablet 1200 MG PO ×2 (09:44→20:42)
[2021-04-05] MEDS: Lisinopril 10 MG Tablet PO (10:17)
--- NOTE | 2021-04-05 13:12 | PN.HOSP_ITS ---
Subjective Subjective Still feels short of breath. Objective Data Objective Data Vital Signs: Vital Signs Temp Pulse Resp BP Pulse Ox 36.3 C L 99 18 134/98 H 98 04/05/21 09:38 04/05/21 10:59 04/05/21 09:38 04/05/21 10:17 04/05/21 11:42 Oxygen Flow Rate (L/min) [ 8 AMBULATING with Oxygen #3] Oxygen Flow Rate (L/min) [ 6 AMBULATING with Oxygen #2] Oxygen Flow Rate (L/min) [ 4 AMBULATING with Oxygen #1] Oxygen Flow Rate (L/min) [At 2 REST with Oxygen] Oxygen Flow Rate (L/min) 2 Oxygen Delivery Method Nasal Cannula Weight: 108.1 kg Body Mass Index (BMI) 40.8 Intake & Output: Intake and Output for Last 24 Hours 04/03/21 04/04/21 04/05/21 23:59 23:59 23:59 Intake Total 2210 / 2210 1070 / 1070 650 / 650 Output Total 1000 / 1350 950 / 950 Balance 2210 / 2210 70 / -280 -300 / -300 Lab / Micro Data Result Diagrams: 04/05/21 04:40 04/05/21 04:40 Labs: Laboratory Results - last 24 hr 04/05/21 04:40: WBC 12.9 H, RBC 4.18 L, Hgb 12.5, Hct 37.4, MCV 89.5, MCH 29.9, MCHC 33.4, RDW Std Deviation 44.5 H, RDW Coeff of [place] 13.5, Plt Count 232, MPV 9.4, Neut % (Auto) Not Reportable, Absolute Neuts (auto) 10.9 H, Absolute Lymphs (auto) 1.29, Total Counted 100, Neutrophils % (Manual) 85 H, Lymphocytes % (Manual) 10 L, Monocytes % (Manual) 3, Metamyelocytes % 1, Myelocytes % 1 H, Diff Path Review May foll, Reactive Lymphocytes RARE, Platelet Estimate ADEQUATE, RBC Morphology NORM C+C 04/05/21 04:40: Sodium 133 L, Potassium 4.0, Chloride 98, Carbon Dioxide 26.0, Anion Gap 9, BUN 43 H, Creatinine 1.14 H, Estim Creat Clear Calc 35.12, Est GFR (MDRD) Af Amer 59 L, Est GFR (MDRD) Non-Af 49 L, BUN/Creatinine Ratio 37.7 H, Glucose 114 H, Calcium 9.8, Total Bilirubin 0.50, AST 19, ALT 61 H, Alkaline Phosphatase 48, Total Protein 6.4, Albumin 2.3 L, Globulin 4.1, Albumin/Globulin Ratio 0.6 L Micro: Microbiology 04/03/21 18:20 Urine, Clean Catch Urine Culture - Final Mixed Gram Positive Organisms 04/02/21 00:00 Blood Culture (Wb) - Anticubital Left Blood Culture - Final Escherichia coli 04/03/21 06:20 Sputum, Expectorated/Coughed Gram Stain - Final 04/03/21 06:20 Sputum, Expectorated/Coughed Respiratory Culture - Preliminary Appears to be normal respiratory rashaad. Further studies to follow. 04/03/21 00:03 Blood Culture (Wb) - Right Wrist Blood Culture - Final Presumptive E. coli 04/03/21 06:35 Urine, Clean Catch Legionella Antigen - Final 04/03/21 06:35 Urine, Clean Catch Streptococcus pneumoniae Antigen (M - Final 04/02/21 23:42 Mucosa - Nasopharyngeal Respiratory Panel (PCR) - Final Physical Exam Narrative Sats dropped to 87% on 6L with ambulation with increase of HR to 120-130s. Const alert Constitutional Narrative: short shallow mouth breathing Resp normal respiratory effort, no retractions, no use of accessory muscles and clear to auscultation bilaterally Cardio regular rate, regular rhythm, S1 normal heart sound and S2 normal heart sound GI normal to inspection, nondistended, normoactive bowel sounds, soft to palpation, non-tender and non-distended Extremity normal to inspection Assessment & Plan Assessment/Plan (1) Pneumonia due to COVID-19 virus: (2) Acute and chronic respiratory failure with hypoxia: (3) E coli bacteremia: PLAN: 1. acute hypoxic respiratory failure * 2/2 covid 19 * wean oxygen as able * repeat furosemide challenge * advised proper breathing: in nose, out mouth, deep respirations. 2. acute COVID 19 pneumonia * vaccinated ([employer]), no booster * on dexamethasone, out of window for remdesivir 3. E. coli bacteremia * unclear source * was present on 03/28 * on CTX * abx started on 04/03, continue through 04/12 to complete 10 days of abx. 4. VTE prophylaxis: LMWH 5. Anxiety * complicates recovery 6. Disposition pending improvement. Greater than 35 minutes of which greater than 50% of the time was counseling the patient about COVID, anxiety and proper breathing techniques. Charges/Coding Visit Charges Inpatient E&M: 66372 Subs Hosp L3
[2021-04-05] MEDS: Furosemide 40 MG/4 ML Vial IV (14:09)
[2021-04-05 14:25] LABS: Anion Gap 8 (5-15); BUN 46 mg/dL (7-18); BUN/Creat Ratio 33.1 RATIO (10-20); Chloride 95 mmol/L (98-107); Creatinine, Serum 1.39 mg/dL (0.55-1.02); EST Glomerular Filtration Rate 39 mL/min (>60); Est Glom Filt Rate - Afr Amer 47 mL/min (>60); Glucose 146 mg/dL (74-106); Potassium 4.5 mmol/L (3.5-5.1); Sodium Level 130 mmol/L (136-145)
[2021-04-06] VITALS (16 sets, daily range): BP systolic 101–119; BP diastolic 46–67; PULSE 60–92; RESP 16–20; TEMP 35.7–37; O2SAT 84–99
[2021-04-06] MEDS: Heparin Injection (Vial) 5,000 UNIT/ML VIAL 5000 UNIT SC ×3 (05:33→21:22)
[2021-04-06] MEDS: Albuterol 2.5 MG/3 ML VIAL.NEB. INHALATION ×3 (07:25→21:06)
[2021-04-06 07:29] LABS: Hematocrit 41.2 % (37-47); Hemoglobin 13.3 g/dL (12.0-15.0); Mean Corp Hgb Conc 32.3 g/dL (32-36); Mean Corpuscular Hgb 29.2 pg (27.0-32.0); Mean Corpuscular Volume 90.5 fL (81-99); Mean Platelet Vol. 9.6 fl (6.2-12.0); POSITIVE COUNT YES; POSITIVE MORPHOLOGY YES; Platelet Count 234 K/mm3 (150-450); RBC Distribution Width CV 13.4 % (11.6-14.6); Red Blood Count 4.55 M/mm3 (4.2-5.4); White Blood Count 12.5 K/mm3 (4.4-11.0)
[2021-04-06 07:32] LABS: Differential Indicated MANUAL DIFF
[2021-04-06 08:03] LABS: Lymphocyte 15 % (19-41); Metamyelocyte 2 % (0-1); Monocyte 1 % (0-10); Neutrophil-Band 1 % (0-5); Neutrophil-Segmented 81 % (47-70); Platelet Estimate ADEQUATE (ADEQ); Red Cell Morphology NORM C+C NORMAL (NORM C&C); Total Cells Counted 100 (MANUAL DIFF)
[2021-04-06 08:04] LABS: ALB/GLOB Ratio 0.6 RATIO (0.9-2.4); AST(SGOT) 20 U/L (15-37); Absolute Lymphocyte Count 1.87 X10^3/uL (0.83-4.51); Absolute Neutrophil Count 10.3 X10^3/uL (2.0-7.7); Alanine Aminotransfer ALT/SGPT 66 U/L (13-56); Albumin, Serum 2.5 g/dL (3.2-5.0); Alkaline Phosphatase 48 U/L (45-117); Anion Gap 8 (5-15); BUN 49 mg/dL (7-18); Calcium,Total 9.7 mg/dL (8.5-10.1); Chloride 94 mmol/L (98-107); Creatinine, Serum 1.14 mg/dL (0.55-1.02); EST Glomerular Filtration Rate 49 mL/min (>60); Est Glom Filt Rate - Afr Amer 59 mL/min (>60); Estimated Creatinine Clearance 35.12 ml/min; Globulin 4.3 g/dL (2.2-4.2); Glucose 96 mg/dL (74-106); Lymphocyte # 1.87 X10^3/ul (0.83-4.51); Neutrophil # 10.25 X10^3/uL (2.7-7.7); Potassium 4.2 mmol/L (3.5-5.1); Protein, Total 6.8 g/dL (6.4-8.2); Sodium Level 133 mmol/L (136-145)
[2021-04-06 09:08] LABS: Pathologist Review Reviewed
[2021-04-06] MEDS: guaiFENesin 1,200 MG Tablet 1200 MG PO ×2 (09:40→21:22)
[2021-04-06] MEDS: dexAMETHasone 4 MG Tablet 6 MG PO (09:40)
[2021-04-06] MEDS: Pantoprazole Sodium 20 MG Tablet PO (09:41)
[2021-04-06] MEDS: Cholecalciferol (VIT D3) 25 MCG TABLET (1,000 UNITS) 125 MCG PO (09:41)
[2021-04-06] MEDS: Senna/Docusate Sodium 1 Tablet 2 TABLET PO ×2 (09:41→21:22)
[2021-04-06] MEDS: Ceftriaxone 1 GM/50 ML BAG IV (09:49)
[2021-04-06] MEDS: Lisinopril 10 MG Tablet PO (11:27)
--- NOTE | 2021-04-06 11:51 | CASEMGMT ---
Per Aminata WRIGHT, pt still needs 7L nc with ambulation. so pt not to be discharged today. Cecile WRIGHT CM
[2021-04-06 13:15] LABS: Pathologist Review Reviewed
--- NOTE | 2021-04-06 15:29 | PN.HOSP_ITS ---
Subjective Subjective Still with SOB. Objective Data Objective Data Vital Signs: Vital Signs Temp Pulse Resp BP Pulse Ox 36.8 C 84 18 103/67 94 04/06/21 15:08 04/06/21 15:08 04/06/21 15:08 04/06/21 15:08 04/06/21 15:08 Oxygen Flow Rate (L/min) [ 6 AMBULATING with Oxygen #3] Oxygen Flow Rate (L/min) [ 5 AMBULATING with Oxygen #2] Oxygen Flow Rate (L/min) [ 4 AMBULATING with Oxygen #1] Oxygen Flow Rate (L/min) [At 2 REST with Oxygen] Oxygen Flow Rate (L/min) 4 Oxygen Delivery Method Nasal Cannula Weight: 107.8 kg Body Mass Index (BMI) 40.8 Intake & Output: Intake and Output for Last 24 Hours 04/04/21 04/05/21 04/06/21 23:59 23:59 23:59 Intake Total 1070 / 1070 950 / 950 950 / 950 Output Total 1000 / 1350 1200 / 1200 800 / 800 Balance 70 / -280 -250 / -250 150 / 150 Lab / Micro Data Result Diagrams: 04/06/21 06:49 04/06/21 06:49 Labs: Laboratory Results - last 24 hr 04/02/21 19:06: Diff Path Review Reviewed 04/06/21 06:49: WBC 12.5 H, RBC 4.55, Hgb 13.3, Hct 41.2, MCV 90.5, MCH 29.2, MCHC 32.3, RDW Std Deviation 45.0 H, RDW Coeff of [place] 13.4, Plt Count 234, MPV 9.6, Neut % (Auto) Not Reportable, Absolute Neuts (auto) 10.3 H, Absolute Lymphs (auto) 1.87, Total Counted 100, Neutrophils % (Manual) 81 H, Band Neutrophils % 1, Lymphocytes % (Manual) 15 L, Monocytes % (Manual) 1, Metamyelocytes % 2 H, Diff Path Review Reviewed, Platelet Estimate ADEQUATE, RBC Morphology NORM C+C 04/06/21 06:49: Sodium 133 L, Potassium 4.2, Chloride 94 L, Carbon Dioxide 31.0, Anion Gap 8, BUN 49 H, Creatinine 1.14 H, Estim Creat Clear Calc 35.12, Est GFR (MDRD) Af Amer 59 L, Est GFR (MDRD) Non-Af 49 L, BUN/Creatinine Ratio 43.0 H, Glucose 96, Calcium 9.7, Total Bilirubin 0.60, AST 20, ALT 66 H, Alkaline Phosphatase 48, Total Protein 6.8, Albumin 2.5 L, Globulin 4.3 H, Albumin/Globulin Ratio 0.6 L Micro: Microbiology 04/03/21 06:20 Sputum, Expectorated/Coughed Gram Stain - Final 04/03/21 06:20 Sputum, Expectorated/Coughed Respiratory Culture - Final Mixed normal respiratory rashaad. No Streptococcus pneumoniae, beta-hemolytic Streptococcus or Staphylococcus aureus isolated. 04/03/21 18:20 Urine, Clean Catch Urine Culture - Final Mixed Gram Positive Organisms 04/02/21 00:00 Blood Culture (Wb) - Anticubital Left Blood Culture - Final Escherichia coli 04/03/21 00:03 Blood Culture (Wb) - Right Wrist Blood Culture - Final Presumptive E. coli 04/03/21 06:35 Urine, Clean Catch Legionella Antigen - Final 04/03/21 06:35 Urine, Clean Catch Streptococcus pneumoniae Antigen (M - Final 04/02/21 23:42 Mucosa - Nasopharyngeal Respiratory Panel (PCR) - Final Physical Exam Const alert and no apparent distress HEENT Head and Scalp: normocephalic Resp normal respiratory effort and no retractions Resp Narrative: bilateral crackles. Cardio regular rate, regular rhythm, S1 normal heart sound and S2 normal heart sound GI normal to inspection, nondistended, normoactive bowel sounds, soft to palpation, non-tender and non-distended Extremity normal to inspection Psych affect normal Assessment & Plan Assessment/Plan (1) Pneumonia due to COVID-19 virus: (2) Acute and chronic respiratory failure with hypoxia: (3) E coli bacteremia: PLAN: 1. acute hypoxic respiratory failure * 2/2 covid 19 * wean oxygen as able * repeat furosemide challenge * advised proper breathing: in nose, out mouth, deep respirations. 2. acute COVID 19 pneumonia * vaccinated ([employer]), no booster * on dexamethasone, out of window for remdesivir 3. E. coli bacteremia * unclear source * was present on 03/28 * on CTX * abx started on 04/03, continue through 04/12 to complete 10 days of abx. 4. VTE prophylaxis: LMWH 5. Anxiety * complicates recovery 6. Disposition pending improvement. Charges/Coding Visit Charges Inpatient E&M: 49030 Subs Hosp L2
[2021-04-06] MEDS: Furosemide 40 MG/4 ML Vial IV (17:18)
[2021-04-07] VITALS (15 sets, daily range): BP systolic 93–142; BP diastolic 44–69; PULSE 61–91; RESP 16–21; TEMP 36.3–36.8; O2SAT 88–98
[2021-04-07] MEDS: Heparin Injection (Vial) 5,000 UNIT/ML VIAL 5000 UNIT SC ×3 (05:11→20:08)
[2021-04-07] MEDS: Albuterol 2.5 MG/3 ML VIAL.NEB. INHALATION ×3 (06:46→21:09)
[2021-04-07 07:13] LABS: Hematocrit 40.6 % (37-47); Hemoglobin 13.5 g/dL (12.0-15.0); Mean Corp Hgb Conc 33.3 g/dL (32-36); Mean Corpuscular Hgb 29.4 pg (27.0-32.0); Mean Corpuscular Volume 88.5 fL (81-99); Mean Platelet Vol. 9.7 fl (6.2-12.0); POSITIVE COUNT YES; POSITIVE MORPHOLOGY YES; Platelet Count 210 K/mm3 (150-450); RBC Distribution Width CV 13.5 % (11.6-14.6); RBC Distribution Width SD 43.8 fl (35.1-43.9); Red Blood Count 4.59 M/mm3 (4.2-5.4); White Blood Count 14.2 K/mm3 (4.4-11.0)
[2021-04-07 07:16] LABS: Differential Indicated MANUAL DIFF
[2021-04-07 07:37] LABS: ALB/GLOB Ratio 0.6 RATIO (0.9-2.4); AST(SGOT) 19 U/L (15-37); Alanine Aminotransfer ALT/SGPT 67 U/L (13-56); Albumin, Serum 2.5 g/dL (3.2-5.0); Alkaline Phosphatase 46 U/L (45-117); Anion Gap 10 (5-15); BUN 58 mg/dL (7-18); Calcium,Total 9.7 mg/dL (8.5-10.1); Chloride 92 mmol/L (98-107); Creatinine, Serum 1.16 mg/dL (0.55-1.02); EST Glomerular Filtration Rate 48 mL/min (>60); Est Glom Filt Rate - Afr Amer 58 mL/min (>60); Estimated Creatinine Clearance 34.51 ml/min; Globulin 4.4 g/dL (2.2-4.2); Glucose 95 mg/dL (74-106); Potassium 4.6 mmol/L (3.5-5.1); Protein, Total 6.9 g/dL (6.4-8.2); Sodium Level 128 mmol/L (136-145)
[2021-04-07 09:05] LABS: Pathologist Review Reviewed
[2021-04-07 09:13] LABS: Pathologist Review Reviewed
[2021-04-07 09:29] LABS: Lymphocyte 7 % (19-41); Metamyelocyte 2 % (0-1); Monocyte 7 % (0-10); Myelocyte 1 % (0-0); Neutrophil-Segmented 83 % (47-70); Platelet Estimate ADEQUATE (ADEQ); Red Cell Morphology NORM C+C NORMAL (NORM C&C); Total Cells Counted 100 (MANUAL DIFF)
[2021-04-07 09:30] LABS: Absolute Neutrophil Count 11.8 X10^3/uL (2.0-7.7)
[2021-04-07 09:31] LABS: Pathologist Review Reviewed
[2021-04-07] MEDS: Furosemide 40 MG/4 ML Vial IV ×2 (10:24→17:09)
[2021-04-07] MEDS: dexAMETHasone 4 MG Tablet 6 MG PO (10:26)
[2021-04-07] MEDS: Cholecalciferol (VIT D3) 25 MCG TABLET (1,000 UNITS) 125 MCG PO (10:26)
[2021-04-07] MEDS: Senna/Docusate Sodium 1 Tablet 2 TABLET PO ×2 (10:26→20:08)
[2021-04-07] MEDS: Pantoprazole Sodium 20 MG Tablet PO (10:26)
[2021-04-07] MEDS: Lisinopril 10 MG Tablet PO (10:26)
[2021-04-07] MEDS: guaiFENesin 1,200 MG Tablet 1200 MG PO ×2 (10:26→20:08)
[2021-04-07] MEDS: Ceftriaxone 1 GM/50 ML BAG IV (10:39)
--- NOTE | 2021-04-07 11:43 | CASEMGMT ---
Per Aminata RN, pt still needs more than 6L nc oxygen while ambulating and also gets tachy with any movement. Pt not to discharge today. CM to follow. Cecile WRIGHT CM
[2021-04-07 12:44] LABS: Pathologist Review Reviewed
--- NOTE | 2021-04-07 14:07 | PN.HOSP_ITS ---
Subjective Subjective Breathing ok. Still SOB with exertion. Objective Data Objective Data Vital Signs: Vital Signs Temp Pulse Resp BP Pulse Ox 36.3 C L 79 16 93/49 L 96 04/07/21 14:00 04/07/21 14:00 04/07/21 14:00 04/07/21 14:00 04/07/21 14:00 Oxygen Flow Rate (L/min) [ 6 AMBULATING with Oxygen #3] Oxygen Flow Rate (L/min) [ 5 AMBULATING with Oxygen #2] Oxygen Flow Rate (L/min) [ 6 AMBULATING with Oxygen #1] Oxygen Flow Rate (L/min) [At 2 REST with Oxygen] Oxygen Flow Rate (L/min) 2 Oxygen Delivery Method Nasal Cannula Weight: 107.8 kg Body Mass Index (BMI) 40.8 Intake & Output: Intake and Output for Last 24 Hours 04/05/21 04/06/21 04/07/21 23:59 23:59 23:59 Intake Total 950 / 950 1310 / 1310 450 / 450 Output Total 1200 / 1200 1150 / 1550 1200 / 1200 Balance -250 / -250 160 / -240 -750 / -750 Lab / Micro Data Result Diagrams: 04/07/21 06:10 04/07/21 06:10 Labs: Laboratory Results - last 24 hr 04/03/21 07:10: Diff Path Review Reviewed 04/04/21 06:18: Diff Path Review Reviewed 04/05/21 04:40: Diff Path Review Reviewed 04/07/21 06:10: WBC 14.2 H, RBC 4.59, Hgb 13.5, Hct 40.6, MCV 88.5, MCH 29.4, MCHC 33.3, RDW Std Deviation 43.8, RDW Coeff of [place] 13.5, Plt Count 210, MPV 9.7, Neut % (Auto) Not Reportable, Absolute Neuts (auto) 11.8 H, Absolute Lymphs (auto) 1.00, Total Counted 100, Neutrophils % (Manual) 83 H, Lymphocytes % (Manual) 7 L, Monocytes % (Manual) 7, Metamyelocytes % 2 H, Myelocytes % 1 H, Diff Path Review Reviewed, Platelet Estimate ADEQUATE, RBC Morphology NORM C+C 04/07/21 06:10: Sodium 128 L, Potassium 4.6, Chloride 92 L, Carbon Dioxide 26.0, Anion Gap 10, BUN 58 H, Creatinine 1.16 H, Estim Creat Clear Calc 34.51, Est GFR (MDRD) Af Amer 58 L, Est GFR (MDRD) Non-Af 48 L, BUN/Creatinine Ratio 50.0 H, Glucose 95, Calcium 9.7, Total Bilirubin 0.50, AST 19, ALT 67 H, Alkaline Phosphatase 46, Total Protein 6.9, Albumin 2.5 L, Globulin 4.4 H, Albumin/Globulin Ratio 0.6 L Micro: Microbiology 04/03/21 06:20 Sputum, Expectorated/Coughed Gram Stain - Final 04/03/21 06:20 Sputum, Expectorated/Coughed Respiratory Culture - Final Mixed normal respiratory rashaad. No Streptococcus pneumoniae, beta-hemolytic Streptococcus or Staphylococcus aureus isolated. 04/03/21 18:20 Urine, Clean Catch Urine Culture - Final Mixed Gram Positive Organisms 04/02/21 00:00 Blood Culture (Wb) - Anticubital Left Blood Culture - Final Escherichia coli 04/03/21 00:03 Blood Culture (Wb) - Right Wrist Blood Culture - Final Presumptive E. coli 04/03/21 06:35 Urine, Clean Catch Legionella Antigen - Final 04/03/21 06:35 Urine, Clean Catch Streptococcus pneumoniae Antigen (M - Final 04/02/21 23:42 Mucosa - Nasopharyngeal Respiratory Panel (PCR) - Final Physical Exam Const alert and no apparent distress Constitutional Narrative: in chair. no respiratory distress. no conversational dyspnea. HEENT head/scalp atraumatic Head and Scalp: normocephalic Neck no lymphadenopathy Resp normal respiratory effort, no retractions, no use of accessory muscles and clear to auscultation bilaterally Cardio regular rate, regular rhythm, S1 normal heart sound and S2 normal heart sound GI normal to inspection, nondistended, normoactive bowel sounds, soft to palpation, non-tender and non-distended Extremity normal to inspection Assessment & Plan Assessment/Plan (1) Pneumonia due to COVID-19 virus: (2) E coli bacteremia: (3) Acute respiratory failure with hypoxia: PLAN: 1. acute hypoxic respiratory failure * ongoing * 2/2 covid 19 * wean oxygen as able * continue furosemide * advised proper breathing: in nose, out mouth, deep respirations. 2. acute COVID 19 pneumonia * vaccinated ([employer]), no booster * on dexamethasone, out of window for remdesivir 3. E. coli bacteremia * unclear source * was present on 03/28 * on CTX * abx started on 04/03, continue through 04/12 to complete 10 days of abx. 4. VTE prophylaxis: LMWH 5. Anxiety * complicates recovery 6. Disposition pending improvement. Charges/Coding Visit Charges Inpatient E&M: 62771 Subs Hosp L2
[2021-04-07 16:43] LABS: Bacteria 0 SEEN /hpf (None Seen); Mucous, Urine 0 SEEN /hpf (<or=2+); Red Blood Cells-Urine 0 SEEN /hpf (0-5); Squamous Epithelial Cells - UA 0 SEEN /hpf (5-10); White Blood Cells 0 SEEN /hpf (0-5)
[2021-04-07 17:05] LABS: Color, Urine Straw (Yellow); Glucose, Dipstick Normal (Normal); Ketone-Dipstick Negative (Negative); Leukocyte Esterase-Dipstick Negative /ul (Negative); Nitrite-Dipstick Negative (Negative); Occult Blood-Urine Negative /ul (Negative); Protein-Dipstick Negative (Negative); Urine Bilirubin Dipstick Negative (Negative); Urine Clarity Clear (Clear); Urine Urobilinogen Normal (Normal)
[2021-04-07] MEDS: Calcium Carbonate 500 MG Tablet PO (21:59)
[2021-04-08] VITALS (13 sets, daily range): BP systolic 98–120; BP diastolic 38–74; PULSE 61–93; RESP 14–20; TEMP 36.1–36.8; O2SAT 93–97
[2021-04-08] MEDS: Heparin Injection (Vial) 5,000 UNIT/ML VIAL 5000 UNIT SC ×3 (04:29→21:06)
[2021-04-08] MEDS: Calcium Carbonate 500 MG Tablet PO ×4 (04:35→22:35)
[2021-04-08 06:57] LABS: Hematocrit 41.4 % (37-47); Hemoglobin 13.9 g/dL (12.0-15.0); Mean Corp Hgb Conc 33.6 g/dL (32-36); Mean Corpuscular Hgb 29.8 pg (27.0-32.0); Mean Corpuscular Volume 88.7 fL (81-99); Mean Platelet Vol. 9.7 fl (6.2-12.0); POSITIVE COUNT YES; POSITIVE MORPHOLOGY YES; Platelet Count 213 K/mm3 (150-450); RBC Distribution Width CV 13.6 % (11.6-14.6); Red Blood Count 4.67 M/mm3 (4.2-5.4); White Blood Count 12.1 K/mm3 (4.4-11.0)
[2021-04-08] MEDS: Albuterol 2.5 MG/3 ML VIAL.NEB. INHALATION ×3 (07:03→21:31)
[2021-04-08 07:06] LABS: Differential Indicated MANUAL DIFF
[2021-04-08 07:42] LABS: ALB/GLOB Ratio 0.6 RATIO (0.9-2.4); AST(SGOT) 18 U/L (15-37); Alanine Aminotransfer ALT/SGPT 68 U/L (13-56); Albumin, Serum 2.6 g/dL (3.2-5.0); Alkaline Phosphatase 43 U/L (45-117); Anion Gap 12 (5-15); BUN 67 mg/dL (7-18); BUN/Creat Ratio 54.5 RATIO (10-20); Calcium,Total 9.7 mg/dL (8.5-10.1); Chloride 88 mmol/L (98-107); Creatinine, Serum 1.23 mg/dL (0.55-1.02); EST Glomerular Filtration Rate 45 mL/min (>60); Est Glom Filt Rate - Afr Amer 54 mL/min (>60); Estimated Creatinine Clearance 32.55 ml/min; Globulin 4.4 g/dL (2.2-4.2); Glucose 84 mg/dL (74-106); Potassium 4.1 mmol/L (3.5-5.1); Sodium Level 126 mmol/L (136-145)
[2021-04-08] MEDS: dexAMETHasone 4 MG Tablet 6 MG PO (08:58)
[2021-04-08] MEDS: Cholecalciferol (VIT D3) 25 MCG TABLET (1,000 UNITS) 125 MCG PO (08:58)
[2021-04-08] MEDS: Senna/Docusate Sodium 1 Tablet 2 TABLET PO ×2 (08:59→21:06)
[2021-04-08] MEDS: guaiFENesin 1,200 MG Tablet 1200 MG PO ×2 (08:59→21:06)
[2021-04-08] MEDS: Lisinopril 10 MG Tablet PO (09:01)
[2021-04-08] MEDS: Ceftriaxone 1 GM/50 ML BAG IV (09:02)
[2021-04-08] MEDS: Furosemide 40 MG/4 ML Vial IV (09:02)
[2021-04-08 09:10] LABS: Eosinophil 1 % (0-5); Lymphocyte 10 % (19-41); Metamyelocyte 1 % (0-1); Monocyte 3 % (0-10); Myelocyte 2 % (0-0); Neutrophil-Segmented 83 % (47-70); Platelet Estimate ADEQUATE (ADEQ); Red Cell Morphology NORM C+C NORMAL (NORM C&C); Total Cells Counted 100 (MANUAL DIFF)
[2021-04-08 09:11] LABS: Absolute Lymphocyte Count 1.21 X10^3/uL (0.83-4.51)
[2021-04-08] MEDS: Pantoprazole Sodium 40 MG Tablet PO (09:23)
--- NOTE | 2021-04-08 09:54 | CASEMGMT ---
In morning rounds this am physician indicated patient needs to go to a snf. SW spoke with patient and she did not want a list of facilities. She said she wants to go to [facility]. SW told her SW will work on this and keep her updated. SW called [facility] (similar to [facility]). SW discussed referral and that patient is 17 days out from her positive COVID test. They will look at referral and get back to . ROSELIA faxed referral. Await response. Charley BLANCO
--- NOTE | 2021-04-08 12:00 | CASEMGMT ---
ROSELIA received a message from Juliette at [facility]. She asked about a copy of patient's positive COVID test, confusion, and her O2 requirements with exertion. ROSELIA called [facility] and they will fax patient's positive test. ROSELIA then faxed today's PT OT notes and the COVID test. ROSELIA also left a message with Juliette. Charley Chacko SPINNER CAP FRAMEKiko BESTW
--- NOTE | 2021-04-08 13:38 | CASEMGMT ---
ROSELIA called [facility] again and left a message for Juliette requesting a return call. Charley Chacko PASTRY COOK FRANCIS
[2021-04-08 13:40] LABS: Pathologist Review Reviewed
--- NOTE | 2021-04-08 14:00 | PN.HOSP_ITS ---
Subjective Subjective breathing well at rest, but becomes very winded with activity. Requires 2-person assist with activity. Objective Data Objective Data Vital Signs: Vital Signs Temp Pulse Resp BP Pulse Ox 36.6 C 78 16 116/38 L 96 04/08/21 13:11 04/08/21 13:13 04/08/21 13:13 04/08/21 13:11 04/08/21 13:11 Oxygen Flow Rate (L/min) [ 6 AMBULATING with Oxygen #3] Oxygen Flow Rate (L/min) [ 5 AMBULATING with Oxygen #2] Oxygen Flow Rate (L/min) [ 6 AMBULATING with Oxygen #1] Oxygen Flow Rate (L/min) [At 2 REST with Oxygen] Oxygen Flow Rate (L/min) 2 Oxygen Delivery Method Nasal Cannula Weight: 108.2 kg Body Mass Index (BMI) 40.8 Intake & Output: Intake and Output for Last 24 Hours 04/06/21 04/07/21 04/08/21 23:59 23:59 23:59 Intake Total 1310 / 1310 1690 / 1690 650 / 650 Output Total 1150 / 1550 2150 / 2150 775 / 775 Balance 160 / -240 -460 / -460 -125 / -125 Medical Nutrition Assessment Dietitian: Malnutrition Criteria Met Start: 04/08/21 12:41 Freq: Status: Active Protocol: Document 04/08/21 12:41 RMA (Rec: 04/08/21 12:41 RMA [id number]) Nutrition Malnutrition Evidence of Malnutrition Exists Yes Malnutrition (severe): Acute Illness/Injury Evidenced By Suboptimal Energy Intake ( Severe),Weight Loss (Severe) Clinical Problem Acute Disease or Injury Related Malnutrition Etiology related to acute illness ( covid) and pt unable to consume adequate nutrition to meet est nutrition needs Signs/Symptoms as evidenced by <50% po intake at meals >5 days and 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 Lab / Micro Data Result Diagrams: 04/08/21 06:00 04/08/21 06:00 Labs: Laboratory Results - last 24 hr 04/07/21 16:36: Urine Color Straw, Urine Clarity Clear, Urine pH 6.0, Ur Specific [place] 1.010, Urine Protein Negative, Urine Glucose (UA) Normal, Urine Ketones Negative, Urine Occult Blood Negative, Urine Nitrite Negative, Urine Bilirubin Negative, Urine Urobilinogen Normal, Ur Leukocyte Esterase Negative, Urine RBC 0 SEEN, Urine WBC 0 SEEN, Ur Squamous Epith Cells 0 SEEN, Urine Bacteria 0 SEEN, Urine Mucus 0 SEEN 04/08/21 06:00: WBC 12.1 H, RBC 4.67, Hgb 13.9, Hct 41.4, MCV 88.7, MCH 29.8, MCHC 33.6, RDW Std Deviation 44.0 H, RDW Coeff of [place] 13.6, Plt Count 213, MPV 9.7, Neut % (Auto) Not Reportable, Absolute Neuts (auto) 10.0 H, Absolute Lymphs (auto) 1.21, Total Counted 100, Neutrophils % (Manual) 83 H, Lymphocytes % (Manual) 10 L, Monocytes % (Manual) 3, Eosinophils % (Manual) 1, Metamyelocytes % 1, Myelocytes % 2 H, Diff Path Review Reviewed, Platelet Estimate ADEQUATE, RBC Morphology NORM C+C 04/08/21 06:00: Sodium 126 L, Potassium 4.1, Chloride 88 L, Carbon Dioxide 26.0, Anion Gap 12, BUN 67 H, Creatinine 1.23 H, Estim Creat Clear Calc 32.55, Est GFR (MDRD) Af Amer 54 L, Est GFR (MDRD) Non-Af 45 L, BUN/Creatinine Ratio 54.5 H, Glucose 84, Calcium 9.7, Total Bilirubin 0.70, AST 18, ALT 68 H, Alkaline Phosphatase 43 L, Total Protein 7.0, Albumin 2.6 L, Globulin 4.4 H, Albumin/G lobulin Ratio 0.6 L Micro: Microbiology 04/03/21 06:20 Sputum, Expectorated/Coughed Gram Stain - Final 04/03/21 06:20 Sputum, Expectorated/Coughed Respiratory Culture - Final Mixed normal respiratory rashaad. No Streptococcus pneumoniae, beta-hemolytic Streptococcus or Staphylococcus aureus isolated. 04/03/21 18:20 Urine, Clean Catch Urine Culture - Final Mixed Gram Positive Organisms 04/02/21 00:00 Blood Culture (Wb) - Anticubital Left Blood Culture - Final Escherichia coli 04/03/21 00:03 Blood Culture (Wb) - Right Wrist Blood Culture - Final Presumptive E. coli 04/03/21 06:35 Urine, Clean Catch Legionella Antigen - Final 04/03/21 06:35 Urine, Clean Catch Streptococcus pneumoniae Antigen (M - Final 04/02/21 23:42 Mucosa - Nasopharyngeal Respiratory Panel (PCR) - Final Physical Exam Const alert HEENT head/scalp atraumatic Head and Scalp: normocephalic Resp normal respiratory effort, no retractions and no use of accessory muscles Cardio regular rate, regular rhythm, S1 normal heart sound and S2 normal heart sound GI normal to inspection, nondistended, normoactive bowel sounds, soft to palpation, non-tender and non-distended Extremity normal to inspection Assessment & Plan Assessment/Plan (1) Pneumonia due to COVID-19 virus: (2) E coli bacteremia: (3) Acute respiratory failure with hypoxia: PLAN: 1. acute hypoxic respiratory failure * ongoing * 2/2 covid 19 * wean oxygen as able * continue furosemide * advised proper breathing: in nose, out mouth, deep respirations. 2. acute COVID 19 pneumonia * vaccinated ([employer]), no booster * on dexamethasone, out of window for remdesivir 3. E. coli bacteremia * unclear source * was present on 03/28 * on CTX * abx started on 04/03, continue through 04/12 to complete 10 days of abx. 4. VTE prophylaxis: LMWH 5. Anxiety * complicates recovery 6. Disposition pending to SNF. AMANDO CM. Charges/Coding Visit Charges Inpatient E&M: 62186 Subs Hosp L2
[2021-04-08 15:10] LABS: Anion Gap 12 (5-15); BUN 75 mg/dL (7-18); BUN/Creat Ratio 44.9 RATIO (10-20); Calcium,Total 10.2 mg/dL (8.5-10.1); Chloride 85 mmol/L (98-107); Creatinine, Serum 1.67 mg/dL (0.55-1.02); EST Glomerular Filtration Rate 32 mL/min (>60); Est Glom Filt Rate - Afr Amer 38 mL/min (>60); Estimated Creatinine Clearance 23.97 ml/min; Glucose 143 mg/dL (74-106); Potassium 4.4 mmol/L (3.5-5.1); Sodium Level 125 mmol/L (136-145)
--- NOTE | 2021-04-08 15:37 | CASEMGMT ---
SW has not heard back from [facility]. SW spoke with patient and let her know that SW is waiting to hear back from [facility]. SW explained to her that SW will check in with her again tomorrow. Plan: [facility] pending their acceptance. Charley Chacko INSURANCE COUNSELOR FRANCIS
--- NOTE | 2021-04-08 15:43 | TREXTCAR_ITS ---
Diet 04/03/21 00:53 Diet: Cardiac - Heart Healthy Food consistency:: Regular Liquid Consistency:: Regular/Thin Routine Orders/Code Status O2 Liters per Minute: 2 at rest. 6 with exertion. O2 Frequency: Continuous Keep PO Greater than or Equal to (%): 90 Code Status: Full Code Therapies Weight Bearing: Full weight bearing Physical Therapy: Eval and Treat Occupational Therapy: Eval and Treat Problem/Diagnosis (1) Pneumonia due to COVID-19 virus: Status: Acute (2) E coli bacteremia: Status: Acute (3) Acute respiratory failure with hypoxia: Status: Acute Allergies/Procedures Done in Hospital Allergies thiopental [From Pentothal] Allergy (Intermediate, Verified 04/04/21 17:05) Other TONGUE NUMB grass pollen Allergy (Mild, Verified 04/02/21 17:38) Other - sneezing and congestion mold Allergy (Mild, Verified 04/02/21 17:38) Other - sneezing Iodine and Iodide Containing Produc Allergy (Verified 04/02/21 22:47) Low blood pressure iodine contrast Allergy (Intermediate, Uncoded 04/02/21 17:38) Other - hypotension sodium pentothal Allergy (Intermediate, Uncoded 04/02/21 17:38) Other - tongue numb ANTIBIOTIC Adverse Reaction (Uncoded 04/02/21 17:38) Upset Stomach Type of Care/Length of Stay Estimated LOS: Convalescent Care Less Than 30 days Type of Care Needed: Skilled Rehab Potential: Good Prognosis: Good Additional Orders/Day of Discharge Day of Discharge: 04/09/21 Dietary and Speech Recommendations Dietitian Recommendations/Changes: Continue cardiac diet; will d/c ensure enlive w/ meals. Discharge Plan Admission Admit Date/Time: 04/03/21 11:19 Primary Reason for Your Visit: COVID 19. Bacteremia Attending Provider: Irineo Serna Primary Care Provider: Gil Wiseman Discharge Orders/Prescriptions Prescriptions: New acetaminophen [Tylenol] 325 mg Tablet 650 mg PO Q6H PRN PRN (Reason: Pain Score 1-10/Temp > 100.7 F) Qty: 0 RF: 0 loperamide 2 mg Capsule 2 mg PO Q2H PRN PRN (Reason: Diarrhea) Qty: 0 RF: 0 pantoprazole 40 mg Tablet,Delayed Release (Dr/Ec) 40 mg PO DAILY Qty: 0 RF: 0 dexamethasone 4 mg Tablet 6 mg PO DAILY Qty: 0 RF: 0 calcium carbonate 200 mg calcium (500 mg) Tablet,Chewable 500 mg PO Q4H PRN PRN (Reason: HEARTBURN) Qty: 0 RF: 0 Mucus Relief ER 1,200 mg Tablet Extended Release 12hr 1,200 mg PO BID Qty: 0 RF: 0 levofloxacin 500 mg tablet 500 mg PO DAILY Qty: 3 RF: 0 Continued omeprazole 20 mg capsule,delayed release(DR/EC) 20 mg PO DAILY RF: 0 cholecalciferol (vitamin D3) 5,000 unit capsule 5,000 unit PO DAILY RF: 0 albuterol sulfate 90 mcg/actuation HFA aerosol inhaler 1 - 2 puff INHALATION Q4H PRN PRN (Reason: shortness of breath or wheezing) Qty: 1 RF: 3 lisinopril 10 MG tablet 10 mg PO DAILY RF: 0 albuterol sulfate 2.5 MG/3 ML solution for nebulization 2.5 mg Inhalation Q6HWA.RT 30 Days Qty: 120 RF: 0 albuterol sulfate 2.5 MG/3 ML solution for nebulization 2.5 mg inhalation Q4H PRN Qty: 25 RF: 0 Referrals / Follow Up: Gil Wiseman MD [Primary Care Provider] - Disposition Disposition (needs filled in before D/C Order can be placed): [facility]
--- NOTE | 2021-04-08 15:51 | CASEMGMT ---
ROSELIA did get a phone call from Juliette at [facility]. They can take patient tomorrow. Plan: d/c to [facility] tomorrow. Charley BLANCO
[2021-04-09 03:00] VITALS: PULSE 70
[2021-04-09 03:30] VITALS: BP 102/52; PULSE 71; RESP 18; TEMP 36.5; O2SAT 97
[2021-04-09] MEDS: Heparin Injection (Vial) 5,000 UNIT/ML VIAL 5000 UNIT SC (05:36)
[2021-04-09 07:11] VITALS: PULSE 71
[2021-04-09 07:33] VITALS: PULSE 89; RESP 20; O2SAT 96
[2021-04-09] MEDS: Albuterol 2.5 MG/3 ML VIAL.NEB. INHALATION ×2 (07:33→13:24)
[2021-04-09 09:14] LABS: Anion Gap 10 (5-15); BUN 70 mg/dL (7-18); BUN/Creat Ratio 51.5 RATIO (10-20); Calcium,Total 9.7 mg/dL (8.5-10.1); Chloride 84 mmol/L (98-107); Creatinine, Serum 1.36 mg/dL (0.55-1.02); EST Glomerular Filtration Rate 40 mL/min (>60); Est Glom Filt Rate - Afr Amer 48 mL/min (>60); Estimated Creatinine Clearance 29.44 ml/min; Glucose 83 mg/dL (74-106); Potassium 4.6 mmol/L (3.5-5.1); Sodium Level 124 mmol/L (136-145)
[2021-04-09 09:30] VITALS: BP 103/41; PULSE 88; RESP 16; TEMP 36.4; O2SAT 96
--- NOTE | 2021-04-09 09:49 | DS.PCM_ITS ---
Providers Date of Admission: 04/03/21 Date of Discharge: 04/09/21 Primary Care Physician: Dr. Gil Wiseman MD Reason For Visit: BILATERAL COVID-19 PNEUMONIA Diagnosis Discharge Diagnosis (1) Pneumonia due to COVID-19 virus: Status: Acute Code(s): U07.1 - COVID-19; J12.82 - Pneumonia due to coronavirus disease 2019 (2) E coli bacteremia: Status: Acute Code(s): R78.81 - Bacteremia; B96.20 - Unspecified Escherichia coli [E. coli] as the cause of diseases classified elsewhere (3) Acute respiratory failure with hypoxia: Status: Acute Code(s): J96.01 - Acute respiratory failure with hypoxia (4) Hyponatremia: Status: Acute Code(s): E87.1 - Hypo-osmolality and hyponatremia Medications at Discharge Home Medications cholecalciferol (vitamin D3) 125 mcg (5,000 unit) capsule 5,000 unit PO DAILY 05/06/17 omeprazole 20 mg capsule,delayed release 20 mg PO DAILY 05/06/17 albuterol sulfate 90 mcg/actuation aerosol inhaler 1 - 2 puff INHALATION Q4H PRN PRN #1 device 08/31/17 lisinopril 10 mg PO DAILY 05/03/18 albuterol sulfate 2.5 mg INHALATION Q6HWA.RT 30 Days #120 vial.neb. 05/07/18 albuterol sulfate 2.5 mg INHALATION Q4H PRN #25 vial 03/28/21 acetaminophen [Tylenol] 650 mg PO Q6H PRN PRN #0 tab 04/08/21 calcium carbonate 500 mg PO Q4H PRN PRN #0 tab 04/08/21 dexamethasone 6 mg PO DAILY #0 tab 04/08/21 guaifenesin [Mucus Relief ER] 1,200 mg PO BID #0 tab 04/08/21 levofloxacin 500 mg PO DAILY #3 tab 04/08/21 loperamide 2 mg PO Q2H PRN PRN #0 cap 04/08/21 pantoprazole 40 mg PO DAILY #0 tab 04/08/21 Hospital Course Operations None Procedures None Summary of Care Provided Minutes Spent on Discharge: 28 Hospital Course: 9-year-old female presents with shortness of breath. Patient is a found to have COVID-19. Patient was vaccinated for COVID-19. Patient's course was slow but rather uncomplicated in regards to her respiratory status. Patient become very Gradually she has improved. tachypneic upon standing. Additionally patient was found to have E. coli bacteremia. The source was never identified. Patient will Patient was receiving a furosemide until there was an uptick in her creatinine and that was discontinued. continue with a 10-day course of antibiotics. Patient was on ceftriaxone and will be changed over to levofloxacin upon discharge. Patient did also have some hyponatremia Gibson be more of a chronic process also be further followed up as outpatient. She is currently asymptomatic Physical Exam Const alert HEENT normocephalic Resp normal respiratory effort and no retractions Resp Narrative: faint crackles. Cardio regular rate and regular rhythm GI normal to inspection, nondistended, normoactive bowel sounds and soft to palpation Medical Records Data Medical Nutrition Assessment Dietitian: Malnutrition Criteria Met Start: 04/08/21 12:41 Freq: Status: Active Protocol: Document 04/08/21 12:41 RMA (Rec: 04/08/21 12:41 RMA [id number]) Nutrition Malnutrition Evidence of Malnutrition Exists Yes Malnutrition (severe): Acute Illness/Injury Evidenced By Suboptimal Energy Intake ( Severe),Weight Loss (Severe) Clinical Problem Acute Disease or Injury Related Malnutrition Etiology related to acute illness ( covid) and pt unable to consume adequate nutrition to meet est nutrition needs Signs/Symptoms as evidenced by <50% po intake at meals >5 days and 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 Weight / BMI Weight Weight: 108.2 kg Body Mass Index (BMI) 40.8 ABG / Lab / Microbiology Data Result Diagrams: 04/08/21 06:00 04/09/21 08:20 Laboratory: Laboratory Results - last 24 hr 04/08/21 06:00: Diff Path Review Reviewed 04/08/21 14:44: Sodium 125 L, Potassium 4.4, Chloride 85 L, Carbon Dioxide 28.0, Anion Gap 12, BUN 75 H, Creatinine 1.67 H, Estim Creat Clear Calc 23.97, Est GFR (MDRD) Af Amer 38 L, Est GFR (MDRD) Non-Af 32 L, BUN/Creatinine Ratio 44.9 H, Glucose 143 H, Calcium 10.2 H 04/09/21 08:20: Sodium 124 L, Potassium 4.6, Chloride 84 L, Carbon Dioxide 30.0, Anion Gap 10, BUN 70 H, Creatinine 1.36 H, Estim Creat Clear Calc 29.44, Est GFR (MDRD) Af Amer 48 L, Est GFR (MDRD) Non-Af 40 L, BUN/Creatinine Ratio 51.5 H, Glucose 83, Calcium 9.7 Microbiology: Microbiology 04/03/21 06:20 Sputum, Expectorated/Coughed Gram Stain - Final 04/03/21 06:20 Sputum, Expectorated/Coughed Respiratory Culture - Final Mixed normal respiratory rashaad. No Streptococcus pneumoniae, beta-hemolytic Streptococcus or Staphylococcus aureus isolated. 04/03/21 18:20 Urine, Clean Catch Urine Culture - Final Mixed Gram Positive Organisms 04/02/21 00:00 Blood Culture (Wb) - Anticubital Left Blood Culture - Final Escherichia coli 04/03/21 00:03 Blood Culture (Wb) - Right Wrist Blood Culture - Final Presumptive E. coli 04/03/21 06:35 Urine, Clean Catch Legionella Antigen - Final 04/03/21 06:35 Urine, Clean Catch Streptococcus pneumoniae Antigen (M - Final 04/02/21 23:42 Mucosa - Nasopharyngeal Respiratory Panel (PCR) - Final Meaningful Use Info Meaningful Use Diagnoses (Choose all that apply): None applicable Discharge Plan Admission Admit Date/Time: 04/03/21 11:19 Primary Reason for Your Visit: COVID 19. Bacteremia Attending Provider: Irineo Serna Primary Care Provider: Gil Wiseman Discharge Orders/Prescriptions Prescriptions: New acetaminophen [Tylenol] 325 mg Tablet 650 mg PO Q6H PRN PRN (Reason: Pain Score 1-10/Temp > 100.7 F) Qty: 0 RF: 0 loperamide 2 mg Capsule 2 mg PO Q2H PRN PRN (Reason: Diarrhea) Qty: 0 RF: 0 pantoprazole 40 mg Tablet,Delayed Release (Dr/Ec) 40 mg PO DAILY Qty: 0 RF: 0 dexamethasone 4 mg Tablet 6 mg PO DAILY Qty: 0 RF: 0 calcium carbonate 200 mg calcium (500 mg) Tablet,Chewable 500 mg PO Q4H PRN PRN (Reason: HEARTBURN) Qty: 0 RF: 0 Mucus Relief ER 1,200 mg Tablet Extended Release 12hr 1,200 mg PO BID Qty: 0 RF: 0 levofloxacin 500 mg tablet 500 mg PO DAILY Qty: 3 RF: 0 Continued omeprazole 20 mg capsule,delayed release(DR/EC) 20 mg PO DAILY RF: 0 cholecalciferol (vitamin D3) 5,000 unit capsule 5,000 unit PO DAILY RF: 0 albuterol sulfate 90 mcg/actuation HFA aerosol inhaler 1 - 2 puff INHALATION Q4H PRN PRN (Reason: shortness of breath or wheezing) Qty: 1 RF: 3 lisinopril 10 MG tablet 10 mg PO DAILY RF: 0 albuterol sulfate 2.5 MG/3 ML solution for nebulization 2.5 mg Inhalation Q6HWA.RT 30 Days Qty: 120 RF: 0 albuterol sulfate 2.5 MG/3 ML solution for nebulization 2.5 mg inhalation Q4H PRN Qty: 25 RF: 0 Referrals / Follow Up: Gil Wiseman MD [Primary Care Provider] - Disposition Disposition (needs filled in before D/C Order can be placed[facility] Charges/Coding Visit Charges Inpatient E&M: [id number] Disch Hosp
[2021-04-09] MEDS: Pantoprazole Sodium 40 MG Tablet PO (09:57)
[2021-04-09] MEDS: guaiFENesin 1,200 MG Tablet 1200 MG PO (09:57)
[2021-04-09] MEDS: dexAMETHasone 4 MG Tablet 6 MG PO (09:58)
[2021-04-09] MEDS: Cholecalciferol (VIT D3) 25 MCG TABLET (1,000 UNITS) 125 MCG PO (09:58)
[2021-04-09] MEDS: Calcium Carbonate 500 MG Tablet PO (09:58)
[2021-04-09] MEDS: Ceftriaxone 1 GM/50 ML BAG IV (09:58)
[2021-04-09] MEDS: Senna/Docusate Sodium 1 Tablet 2 TABLET PO (09:59)
--- NOTE | 2021-04-09 10:38 | CASEMGMT ---
ROSELIA spoke with patient letting her know that [facility] is able to take her and the physician will be sending her today. SW told her SW will arrange transportation. Charley BLANCO
--- NOTE | 2021-04-09 11:31 | CASEMGMT ---
ROSELIA arranged for patient to get picked up at 1330 via van. 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 ROSELIA called [facility] and spoke with Nina. ROSELIA let her know patient will be picked up at 1330 and that SW faxed orders. ROSELIA notified RN, patient, and placement secretary. All in agreement with discharge plan. Plan: d/c to [facility] under skilled level of care. [facility]. Charley BLANCO
--- NOTE | 2021-04-09 13:04 | CHAPLAIN ---
Type of Pastoral Visit _x__ Initial Visit ___ Follow-up Visit ___ On-call Visit ___ General Patient Visit ___ Spiritual Assessment ___ Family Conference ___ Bereavement ___ Rapid Response ___ Code Blue ___ Other (describe below) Pastoral Care Referral From _x__ Patient ___ Family ___ Nurse ___ Physician ___ Accounts Payable Coordinator ___ Power Plant Manager ___ Other (describe below) Sacrament/Intervention _x__ Active listening ___ Anointing ___ Tenriism ___ Bereavement ___ Communion _x__ Page exploration ___ ___ Life review _x__ Prayer ___ Reconciliation ___ Sacrament of Sick _x__ Supportive presence ___ Wedding ___ Other (describe below) Pastoral Comments patient has improved to being able to transfer to a rehab; pt admits that she is weak and that her mental/emotional state is weak too; pt welcomes the visit and a prayer for her recovery and support; pt is looking forward to having a family member visit in the rehab
== END 2021-04-09 14:13 | disposition skilled nursing facility (03) | DRG 177 ==
LOC: ED 21:59 → PCU 22:53
PROVIDERS: Emergency Medicine; Family Medicine; Admitting Provider Internal Medicine; Emergency Provider Emergency Medicine; PCP Family Medicine; Referring Provider Internal Medicine
DX: U07.1 COVID-19 (principal); J12.82 Pneumonia due to coronavirus disease 2019; J96.01 Acute respiratory failure with hypoxia; E87.1 Hypo-osmolality and hyponatremia; R78.81 Bacteremia; Z68.41 Body mass index [BMI] 40.0-44.9, adult; K21.9 Gastro-esophageal reflux disease without esophagitis; E78.5 Hyperlipidemia, unspecified; B96.20 Unspecified Escherichia coli [E. coli] as the cause of diseases classified elsewhere; G47.33 Obstructive sleep apnea (adult) (pediatric); N18.32 Chronic kidney disease, stage 3b; I12.9 Hypertensive chronic kidney disease with stage 1 through stage 4 chronic kidney disease, or unspecified chronic kidney disease; N28.9 Disorder of kidney and ureter, unspecified; J45.909 Unspecified asthma, uncomplicated; E66.01 Morbid (severe) obesity due to excess calories; E55.9 Vitamin D deficiency, unspecified; Z95.0 Presence of cardiac pacemaker; Z79.899 Other long term (current) drug therapy
CPT/HCPCS: 36415; 71045; 71275; 80048; 80053; 80076; 81001; 82550; 83605; 83615; 83735; 83880; 84145; 84484; 85025; 85379; 85384; 85610; 86140; 87040; 87070; 87077; 87086; 87088; 87186; 87205; 87426; 87449; 87633; 87635; 93005; 93970; 94640; 94668; 94760; 94762; 97110; 97163; 97165; 97530; 97535; 97802; 99284; J7030; J7040; Q9967; U0005; A4216; J1940; U0003

== ENCOUNTER 2021-06-02 12:18 | Outpatient (CLI) | payer MEDICARE, OTHER, SELFPAY ==
[2021-06-02 12:51] VITALS: PULSE 101; PULSE 111; PULSE 119; PULSE 121; PULSE 123; PULSE 86; PULSE 93; PULSE 98; O2SAT 90; O2SAT 91; O2SAT 92; O2SAT 93; O2SAT 94; O2SAT 96; O2SAT 97; O2SAT 98
--- NOTE | 2021-06-02 14:37 | PCM.PSN.6M ---
PSN 6 Minute Walk Test 6 Minute Walk Test 6 Minute Walk Test: 6 Minute Walk Test PSN:6-Minute Walk Test Start: 06/02/21 12:51 Freq: Status: Active Protocol: RESP.6MINW Document 06/02/21 12:51 HERI (Rec: 06/02/21 12:53 HERI [id number]) 6 Minute Walk Test Date Performed 06/02/21 Time Performed 12:30 Height 5 ft 5 in Weight: 108.862 kg Weight in Pounds 240.[address]: Shukri Martins Assistive device used: Walker Pre-test Oxygen Delivery Method Room Air Pulse Ox (%) 97 Pulse Rate (60-100 beats/min) 93 Dyspnea Alejandro Scale (0-10) 0.5 Exertion Alejandro Scale (6-20) 6 1st minute Oxygen Delivery Method Room Air Pulse Ox (%) 96 Pulse Rate (60-100 beats/min) 98 2nd minute Oxygen Delivery Method Room Air Pulse Ox (%) 94 Pulse Rate (60-100 beats/min) 101 H 3rd minute Oxygen Delivery Method Room Air Pulse Ox (%) 93 Pulse Rate (60-100 beats/min) 111 H 4th minute Oxygen Delivery Method Room Air Pulse Ox (%) 92 Pulse Rate (60-100 beats/min) 121 H 5th minute Oxygen Delivery Method Room Air Pulse Ox (%) 91 Pulse Rate (60-100 beats/min) 119 H 6th minute Oxygen Delivery Method Room Air Pulse Ox (%) 90 Pulse Rate (60-100 beats/min) 123 H Dyspnea Alejandro Scale (0-10) 4 Exertion Alejandro Scale (6-20) 12 Post-test Oxygen Delivery Method Room Air Pulse Ox (%) 98 Pulse Rate (60-100 beats/min) 86 Full Laps Walked 6 Partial Lap, Number of Tiles Walked 25 Total Distance Walked (ft) 379 Interpretation Interpretation: The patient was able to ambulate only 379 feet over the course of 6 minutes on room air with the assistance of a walker. Patient did have significant desaturation from a baseline of 97% to as low as 90%. This was associated with significant tachycardia at 123 bpm. These findings are consistent with a respiratory limitation exercise tolerance. Recommendations Recommendations: No supplemental oxygen is indicated at this time. However, patient should be followed closely given level of desaturation.
== END 2021-06-02 23:59 | disposition short-term general hospital (02) ==
PROVIDERS: PCP Family Medicine; Referring Provider Internal Medicine Critical Care Medicine; Visit Provider Internal Medicine Critical Care Medicine
DX: R06.00 Dyspnea, unspecified (principal)
CPT/HCPCS: 94618

== ENCOUNTER 2021-06-03 12:42 | Outpatient (CLI) | payer MEDICARE, OTHER, SELFPAY ==
--- NOTE | 2021-06-03 15:05 | PFTCOMP ---
COMPLETE PULMONARY FUNCTION TEST INTERPRETATION Brief HPI: Patient is a 80 year old female, currently under the care of Dr. Martins, who presents to [facility] for complete pulmonary function tests secondary to diagnosis of dyspnea. Respiratory therapist reports good effort and reproducible results. Interpretation: Forced expiration spirometry shows a moderate large airways obstructive ventilatory defect with an FEV1 of 65% predicted. There is no significant bronchodilator response by strict ATS criteria. Spirograms are of good quality and plateau slowly, indicating slowly emptying areas of the lungs. The respiratory flow volume loop shows decreased expiratory flow rates at all lung volumes consistent with airway obstruction. Lung volumes by body plethysmography show a normal total lung capacity at 4.43 L, 90% predicted. FRC and RV are elevated out of proportion. Lung volume measurements are consistent with air-trapping. Diffusion capacity by carbon monoxide is decreased at 49% predicted. The airway resistance is normal. Compared to previous pulmonary function tests from 08/05/2018, there is been a significant reduction in FEV1 and DLCO. Impression: Irreversible moderate large airways obstructive ventilatory defect with a symmetric reduction diffusing capacity. There has been significant worsening since 2019.
== END 2021-06-03 23:59 | disposition short-term general hospital (02) ==
LOC: PSN 12:45
PROVIDERS: PCP Family Medicine; Visit Provider Internal Medicine Critical Care Medicine
DX: R06.00 Dyspnea, unspecified (principal)
CPT/HCPCS: 94060; 94726; 94729

== ENCOUNTER 2021-06-18 09:58 | Outpatient (CLI) | payer MEDICARE, OTHER, SELFPAY ==
--- NOTE | 2021-06-18 10:00 | ECHOD_ITS ---
Reason For Study: DYSPNEA/SOB Procedure This was a 2D Doppler, Color Flow transthoracic echocardiogram. The study was technically difficult. Exam performed in department. Left Ventricle Normal LV size. The estimated ejection fraction is 60 %. Unable to assess diastolic dysfunction. No regional wall motion abnormalities noted. Right Ventricle Normal RV size. Normal systolic function. Atria Normal left atrium. Normal right atrium. No doppler evidence for ASD. Mitral Valve There is moderate mitral annular calcification. There is no mitral valve stenosis. No mitral valve insufficiency. Tricuspid Valve There is no tricuspid stenosis. Trivial tricuspid valve insufficiency. Unable to estimate RV systolic pressure due to insufficient tricuspid regurgitant envelope. Aortic Valve Aortic sclerosis, no stenosis. There is no aortic stenosis. No aortic valve insufficiency. Pulmonic Valve There is no pulmonic valvular stenosis. No pulmonic valve insufficiency. Great Vessels Normal aortic root. Pericardium/Pleural No pericardial effusion. Medication 22 gauge I.V. with prn adaptor inserted into right arm. Diluted definity 2ml given slow IV push to enhance endocardial definition. MMode/2D Measurements & Calculations LVIDd: 4.2 cm IVSd: 0.86 cm Ao root diam: 3.2 cm LVIDs: 2.9 cm LVPWd: 1.00 cm RVDd: 3.2 cm FS: 29.9 % LAV(MOD-bp): 49.1 ml LVAd ap4: 36.8 cm2 SV(MOD-sp4): 79.3 ml LAV(MOD-bp) Indexed: 22.7 ml/m2 LVLd ap4: 8.0 cm LAV(MOD-sp2): 45.6 ml EDV(MOD-sp4): 134.9 ml LAV(MOD-sp4): 52.4 ml EDV(sp4-el): 144.5 ml LVAs ap4: 21.0 cm2 LVLs ap4: 6.4 cm ESV(MOD-sp4): 55.6 ml ESV(sp4-el): 58.1 ml EF(MOD-sp4): 58.8 % EF(sp4-el): 59.8 % SV(sp4-el): 86.4 ml LA A4 area: 19.2 cm2 LA dimension(2D): 3.9 cm RA A4 area: 12.5 cm2 Time Measurements MV dec time: 0.24 sec Doppler Measurements & Calculations MV E max franky: 78.5 cm/sec Lat Peak E' Franky: 6.7 cm/sec Med Peak E' Franky: 5.4 cm/sec MV A max franky: 108.0 cm/sec E/E' lat: 11.8 E/E' med: 14.5 MV E/A: 0.73 Ao V2 max: 149.5 cm/sec LV V1 max: 81.6 cm/sec PA V2 max: 79.8 cm/sec Ao max P.9 mmHg LV V1 max P.7 mmHg TR max franky: 246.7 cm/sec TR max P.4 mmHg ECHO/Echo Complete W/ Contrast Interpretation Summary The estimated ejection fraction is 60 %. Unable to assess diastolic dysfunction. Ordering Physician: Shukri Martins Referring Physician: TERESA LYNNE Performed By: Stephanie Bender RDCS
== END 2021-06-18 23:59 | disposition home or self-care (01) ==
LOC: CVS 09:59
PROVIDERS: PCP Family Medicine; Referring Provider Internal Medicine Critical Care Medicine; Visit Provider Internal Medicine Critical Care Medicine
DX: G47.33 Obstructive sleep apnea (adult) (pediatric) (principal)
CPT/HCPCS: 93306; Q9957; A4216; C8929

== ENCOUNTER → 2022-05-24 | Outpatient (CLI) | payer MEDICARE, OTHER, SELFPAY ==
--- NOTE | 2022-05-24 13:10 | CT_ITS ---
STUDY: CT MAXILLOFACIAL SINUSES REASON FOR EXAM: Female, 81 years old. CHRONIC SINUSITIS RADIATION DOSAGE (If Supplied By Facility): CTDIvol = ( 33.06 ) mGy, DLP = ( 763.60 ) mGycm TECHNIQUE: The patient was scanned in a multi detector CT scanner. High resolution axial imaging was performed without the administration of intravenous contrast material. Sagittal and coronal images were reconstructed. Individualized dose optimization techniques were used for this CT. COMPARISON: Comparison is made with prior study dated 02/23/2019. FINDINGS: FRONTAL SINUSES: Normal aeration, without mucosal inflammatory disease. ETHMOIDAL SINUSES: Normal aeration, without mucosal inflammatory disease. MAXILLARY SINUSES: There is a 1.2 cm x 1.8 cm mucosal retention cyst or polyp along the anterior inferior aspect of the left maxillary sinus. Minimal mucosal thickening at the base of the right maxillary sinus. SPHENOIDAL SINUSES: Normal aeration, without mucosal inflammatory disease. There is patency of the bilateral maxillary infundibuli with normal uncinate processes, ethmoid bullae, and hiatus semilunaris. Normal bilateral middle turbinates. Normal bilateral inferior turbinates. Normal midline nasal septum. There is patency of the bilateral nasal airways. The visualized osseous structures are normal. The visualized bilateral orbital contents are normal. Atherosclerotic calcification of the carotid bifurcations bilaterally. CT/Sinus/Facial Bone IMPRESSION: 1.2 cm x 1.8 cm mucosal retention cyst or polyp along the anterior inferior aspect of the left maxillary sinus. Minimal mucosal thickening at the base of the right maxillary sinus. Electronically Signed: Paolo Gutierrez MD at 13:57 EST ,
== END | disposition home or self-care (01) ==
PROVIDERS: PCP Family Medicine; Referring Provider Otolaryngology; Visit Provider Otolaryngology
DX: J32.8 Other chronic sinusitis (principal)
CPT/HCPCS: 70486

== ENCOUNTER → 2023-04-27 | Outpatient (CLI) | payer MEDICARE, OTHER, SELFPAY | END | disposition home or self-care (01) | LOC: SL 19:49 | PROVIDERS: PCP Family Medicine; Referring Provider Nurse Practitioner Acute Care; Visit Provider Nurse Practitioner Acute Care | DX: G47.33 Obstructive sleep apnea (adult) (pediatric) (principal) | CPT/HCPCS: 95811 ==

== ENCOUNTER 2023-06-29 14:17 | Emergency (ER) | payer MEDICARE, OTHER, SELFPAY ==
[2023-06-29 14:18] VITALS: BP 178/71; PULSE 79; RESP 20; TEMP 36.6; O2SAT 99
--- NOTE | 2023-06-29 15:02 | EKG12_ITS ---
Test Reason : Blood Pressure : / mmHG Vent. Rate : 068 BPM Atrial Rate : 068 BPM P-R Int : 196 ms QRS Dur : 084 ms QT Int : 402 ms P-R-T Axes : 076 -31 050 degrees QTc Int : 427 ms Normal sinus rhythm Left axis deviation Minimal voltage criteria for LVH, may be normal variant ( R in aVL ) Abnormal ECG Confirmed by RADHA WORKMAN, ORION ([id number]), assistant production editor MAME HARRELL ([id number]) on 07/04/2023 9:35:35 AM Referred By: Confirmed By:PAU GARCIA MD
--- NOTE | 2023-06-29 15:02 | CT_ITS ---
STUDY: CTA CHEST REASON FOR EXAM: Female, 82 years old. pulmonary embolism RADIATION DOSAGE (If Supplied By Facility): CTDIvol = ( 11.39 ) mGy, DLP = ( 493.25 ) mGycm TECHNIQUE: The examination was performed with the intravenous administration of IV 100mL Isovue-370. Post-processing of the angiographic images was performed, with multiplanar reformation and 3D reconstruction. Individualized dose optimization techniques were used for this CT. COMPARISON: FINDINGS: Normal enhancement of the main pulmonary artery and right and left pulmonary arteries. Normal enhancement of the bilateral peripheral pulmonary arteries. There is no demonstrated pulmonary embolism. Normal thoracic aorta and visualized great vessels. There is no demonstrated aortic dissection. Normal heart and pericardium. Normal mediastinum. Normal hilar regions. Normal visualized trachea and bronchi. The lungs are well expanded. Normal pulmonary parenchyma. Normal pleura. Normal chest wall structures. Degenerative vertebral changes. Probable partially visualized left renal cystic lesion. Small hiatal hernia. CT/CTA Chest W/WO Contrast IMPRESSION: No demonstrated pulmonary embolism or arterial dissection. Probable partially visualized left renal cystic lesion. Small hiatal hernia. Electronically Signed: Kenneth Cisneros DO at 16:56 EST Reading Location ID and State: [facility] / [place] Tel [phone], Service support ,
--- NOTE | 2023-06-29 15:05 | EX.ED.DYSGE1 ---
HPI History of Present Illness Chief Complaint: Shortness of Breath Informant: patient Narrative Narrative: Patient presents with head congestion and shortness of breath for the past 4 days. She reports head congestion and she thought she was getting a sinus infection. She went to urgent care when she was not able to get into her doctor today and they were concerned about a possible PE. Patient reports significant dyspnea on any exertion. She denies chest pain or cough. No fever noted. She does have a history of DVT and was on blood thinners for a while, but is not currently anticoagulated. [facility] Medical History (Updated 06/29/23 @ 17:[address] Sydnee Correa MD) Acute asthma exacerbation Acute back pain with sciatica Allergic rhinitis Asthma Bradycardia Bronchiectasis Bronchitis Cardiac pacemaker in situ Chronic cough Chronic sinusitis CPAP (continuous positive airway pressure) dependence EVANS (dyspnea on exertion) DVT (deep venous thrombosis) Edema of both legs GERD (gastroesophageal reflux disease) Hemorrhoids Hyperlipidemia Hypertension Multiple environmental allergies Non-smoker MONTRELL (obstructive sleep apnea) Osteoarthrosis Overweight Pacemaker Postnasal drip Pulmonary hypertension Seasonal allergies Seasonal and perennial allergic rhinitis Shingles (herpes zoster) polyneuropathy Shortness of breath Sick sinus syndrome Sinusitis SVT (supraventricular tachycardia) Syncope Vitamin D deficiency Home Medications cholecalciferol (vitamin D3) 125 mcg (5,000 unit) capsule 5,000 unit PO DAILY 05/06/17 [History Last Taken 05/01/18] albuterol sulfate 90 mcg/actuation aerosol inhaler 1 - 2 puff inhalation Q4H PRN PRN shortness of breath or wheezing #1 device 08/31/17 [Rx Last Taken Unknown] acetaminophen 325 mg tablet (Tylenol) 650 mg (2 x 325 mg) PO Q6H PRN PRN Pain Score 1-10/Temp > 100.7 F #0 tabs 04/08/21 [Rx Last Taken Unknown] guaifenesin 1,200 mg tablet, extended release 12 hr (Mucus Relief ER) 1,200 mg PO .prn 10/15/21 [History Last Taken Unknown] azelastine 137 mcg-fluticasone 50 mcg/spray nasal spray 1 spray intranasal BID 04/07/22 [History Last Taken Unknown] cyclobenzaprine 5 mg tablet 5 mg PO PRN 04/04/23 [History Last Taken Unknown] lisinopril 10 mg tablet 2.5 mg PO DAILY 04/04/23 [History Last Taken Unknown] lisinopril 2.5 mg tablet 2.5 mg PO DAILY 04/04/23 [History Last Taken Unknown] amoxicillin 875 mg-potassium clavulanate 125 mg tablet 1 tab PO BID #20 tabs 06/29/23 [Rx Last Taken Unknown] Allergy/AdvReac Type Severity Reaction Status Date / Time thiopental [From Pentothal] Allergy Intermediate Other Verified 06/29/23 14:21 grass pollen Allergy Mild Other - Verified 06/29/23 14:21 sneezing and congestion mold Allergy Mild Other - Verified 06/29/23 14:21 sneezing Iodine and Iodide Containing Allergy Low blood Verified 06/29/23 14:21 Produc pressure Iodinated Contrast Media AdvReac Intermediate Other Verified 06/29/23 14:21 Family History Mother Heart disease Hypertension Myocardial infarction Father Heart disease Myocardial infarction Sister Diabetes Heart disease pacemaker Surgical History History of appendectomy History of colonoscopy History of esophagogastroduodenoscopy (EGD) History of total hip replacement S/P placement of cardiac pacemaker Total knee replacement status Total knee replacement status Social History Smoking Status: Never smoker alcohol intake: never substance use type: does not use ROS ROS ED Constitutional Constitutional ED: Denies chills or fever(s) Eyes Eyes: Denies discharge from eye(s) ENT ENT ED: Reports other Details: Congestion and sinus pressure. ; Denies discharge from eye(s), rhinorrhea or sore throat Cardiovascular Cardiovascular: Denies chest pain or palpitations Respiratory/Chest Respiratory/Chest: Reports dyspnea; Denies cough Gastrointestinal Gastrointestinal: Denies abdominal pain, diarrhea, nausea or vomiting Genitourinary Genitourinary ED: Denies dysuria Musculoskeletal Musculoskeletal: Denies back pain or extremity pain Integumentary Denies Abrasions or rash Neurologic Neurologic: Reports headache(s); Denies weakness Psychiatric Psychiatric: Denies anxiety or depression Allergic/Immunologic Allergic/Immunologic ED: Denies lip swelling or urticaria EXAM Physical Exam Const Vital Signs: 06/29/23 14:18 02/28/24 15:10 06/29/23 15:13 Temperature 97.8 F Temperature Source Temporal Pulse Rate 79 67 Respiratory Rate 20 H 20 H Respiratory Effort Normal Non-Labored Respiratory Depth Normal Blood Pressure 178/71 H 143/62 H Blood Pressure Mean 106 89 Pulse Ox 99 100 Oxygen Delivery Method Room Air Room Air Positive well nourished and well developed General Appearance ED: well developed HEENT Reports moist mucous membranes Eyes EOMs intact bilaterally Chest Wall inspection of chest normal and palpation of chest normal Resp normal respiratory effort and clear to auscultation bilaterally Cardio regular rate and regular rhythm GI non-tender Palpation: soft Extremity normal to inspection Neuro oriented x3 and no sensory deficits noted Psych mental status grossly normal Skin no rashes or lesions noted MDM MDM MDM Narrative Medical decision making narrative: Patient placed on potline monitor. EKG obtained to evaluate for cardiac arrhythmia/ischemia. IV line established. Labwork obtained to evaluate for leukocytosis, anemia, and electrolyte derangement. CTA of the chest obtained to evaluate for potential PE. Of note, patient does have an allergy listed to IV contrast. She reportedly had low blood pressure, but tells me that she has been premedicated before and tolerated the injection without any difficulty. History & Record Review Discussion w/independent historian: Patient Lab Data Attestation: I reviewed the patient's lab results. Labs: Laboratory Results - last 24 hr 06/29/23 06/29/23 15:10 15:35 WBC 7.2 RBC 4.37 Hgb 12.7 Hct 41.2 MCV 94.3 MCH 29.1 MCHC 30.8 L RDW Std Deviation 45.7 H RDW Coeff of Yecenia 13.2 Plt Count 209 MPV 10.3 Immature Gran % (Auto) 0.300 Neut % (Auto) 63.8 Lymph % (Auto) 26.7 [place] % (Auto) 7.7 Eos % (Auto) 1.1 Baso % (Auto) 0.4 Absolute Neuts (auto) 4.6 Absolute Lymphs (auto) 1.93 Nucleated RBC % 0 D-Dimer Quant (PE/DVT) Cancelled < 0.27 L Sodium 139 Potassium 3.8 Chloride 106 Carbon Dioxide 28.0 Anion Gap 5 BUN 20 H Creatinine 0.97 Estim Creat Clear Calc 57.86 Est GFR (MDRD) Af Amer 71 Est GFR (MDRD) Non-Af 59 L BUN/Creatinine Ratio 20.7 H Glucose 101 Calcium 9.6 Troponin I High Sens 7 B-Natriuretic Peptide 37.2 Radiography Diagnostic Testing: Clinical Impression(s) from Imaging Studies Chest CTA 06/29/23 15:02 IMPRESSION: No demonstrated pulmonary embolism or arterial dissection. Probable partially visualized left renal cystic lesion. Small hiatal hernia. Electronically Signed: Kenneth Cisneros DO at 16:56 EST Reading Location ID and State: [facility] / [place] Tel [phone], Service support , Treatment and Re-Evaluation :: CBC was normal white count 7.2 with no left shift. Chemistry studies unremarkable. Troponin and BNP are both normal. CTA of the chest reveals no evidence of PE or dissection. Small hiatal hernia is noted. EKG is sinus rhythm at 68 bpm with no acute ischemia. Swab for COVID, influenza, and RSV is negative. Test results discussed with the patient. She continues to have significant sinus pressure and I will cover her with antibiotics for sinusitis. She is reassured with our findings here and will pickle processor her prescription tomorrow. First dose of antibiotic will be given here. Discharge Plan Triage Chief Complaint: Shortness of Breath ED Provider: Sydnee Correa Dx/Rx/DC Orders Clinical Impression: Sinusitis Instructions: ED Sinusitis (Antibiotic Treatment) Prescriptions: New amoxicillin-pot clavulanate 875-125 mg tablet 1 tab PO BID Qty: 20 0RF No Action cholecalciferol (vitamin D3) 5,000 unit capsule 5,000 unit PO DAILY albuterol sulfate 90 mcg/actuation HFA aerosol inhaler 1 - 2 puff INHALATION Q4H PRN PRN (Reason: shortness of breath or wheezing) Qty: 1 3RF Mucus Relief ER 1,200 mg tablet extended release 12hr 1,200 mg PO .prn azelastine-fluticasone 137-50 mcg/spray spray,non-aerosol 1 spray intranasal BID Rx Instructions: administer into each nostril cyclobenzaprine 5 mg tablet 5 mg PO PRN Patient Comments: Take 1 tablet by mouth two times a day as needed. lisinopril 2.5 mg tablet 2.5 mg PO DAILY Patient Comments: Take 1 tablet by mouth once daily. lisinopril 10 mg tablet 2.5 mg PO DAILY acetaminophen [Tylenol] 325 mg Tablet 650 mg PO Q6H PRN PRN (Reason: Pain Score 1-10/Temp > 100.7 F) Qty: 0 0RF Primary Care Provider: Gil Wiseman Referrals: Gil Wiseman MD [Primary Care Provider] - 5-7 Days Disposition Disposition: Home, Self Care
[2023-06-29 15:13] VITALS: BP 143/62; PULSE 67; RESP 20; O2SAT 100
[2023-06-29 15:15] VITALS: BMI 41.3
[2023-06-29] MEDS: DiphenhydrAMINE 50 MG/ML Syringe 25 MG IV (15:23)
[2023-06-29 15:28] LABS: Absolute Lymphocyte Count 1.93 X10^3/uL (0.83-4.51); Absolute Neutrophil Count 4.6 X10^3/uL (2.0-7.7); Basophil# 0.03 X10^3/uL; Basophil% 0.4 % (0-1); Eosinophil# 0.08 X10^3/uL; Eosinophils% 1.1 % (0-5); Hematocrit 41.2 % (37-47); Hemoglobin 12.7 g/dL (12.0-15.0); Lymphocyte # 1.93 X10^3/ul (0.83-4.51); Lymphocyte % 26.7 % (19-41); Mean Corp Hgb Conc 30.8 g/dL (32-36); Mean Corpuscular Hgb 29.1 pg (27.0-32.0); Mean Corpuscular Volume 94.3 fL (81-99); Mean Platelet Vol. 10.3 fl (6.2-12.0); Monocyte# 0.56 X10^3/uL; Monocyte% 7.7 % (0-10); NRBC Flagged by Analyzer 0 % (0-5); Neutrophil # 4.61 X10^3/uL (2.7-7.7); Neutrophil % 63.8 % (47-70); Platelet Count 209 K/mm3 (150-450); RBC Distribution Width CV 13.2 % (11.6-14.6); RBC Distribution Width SD 45.7 fl (35.1-43.9); Red Blood Count 4.37 M/mm3 (4.2-5.4); White Blood Count 7.2 K/mm3 (4.4-11.0)
[2023-06-29 15:46] LABS: Anion Gap 5 (5-15); BUN 20 mg/dL (7-18); BUN/Creat Ratio 20.7 RATIO (10-20); Calcium,Total 9.6 mg/dL (8.5-10.1); Chloride 106 mmol/L (98-107); Creatinine, Serum 0.97 mg/dL (0.55-1.02); EST Glomerular Filtration Rate 59 mL/min (>60); Est Glom Filt Rate - Afr Amer 71 mL/min (>60); Estimated Creatinine Clearance 57.86 ml/min; Glucose 101 mg/dL (74-106); Potassium 3.8 mmol/L (3.5-5.1); Sodium Level 139 mmol/L (136-145); Troponin-I HS 7 pg/mL (3.0-54.0)
[2023-06-29 16:06] LABS: D-Dimer Quantitative (DVT/PE) < 0.27 FEU/ug/m (0.27-0.49)
[2023-06-29 16:12] LABS: BNP,B-Type NATRIURETIC PEPTIDE 37.2 pg/mL (0-100)
[2023-06-29] MEDS: Amox/Clavulanate 875 MG Tablet PO (17:36)
[2023-06-29 17:43] VITALS: BP 156/74; PULSE 78; RESP 16; TEMP 36.6; O2SAT 96
--- OUTSIDE RECORDS SUMMARY | 2023-06-30 00:37 | XMS RPT_ITS | CCD ---
Author Name Unknown Address [address] [place] [address] Organization [facility] Care Team Providers Care Transporter Radiology Name Role Phone YorkRaquelLyubov L Unavailable Unavailable York, Lyubov L Unavailable Unavailable York, Lyubov L Unavailable Unavailable York, Lyubov L Unavailable Unavailable Bessy Estes CNP Unavailable SUZE WISEMAN Primary Care Unavailable PAULA BRISCOE Admitting UnavailPAULA Park Attending UnavailGER Anderson Consulting Unavailable SAMAN ROMANO Procedure Practitioner Unavai PAULA Dixon Procedure Practitioner Frances vailable AUBREY GALLEGOS Consulting Unavailable MUSA ZELAYA Consulting Unavailable SAMAN ROMANO Consulting Unavailable AUBREY GALLEGOS Procedure Practitioner Unava ilable MUSA ZELAYA Admitting Unavailable MUSA ZELAYA Attending Unavailable AA UNKNOWN PCP, UNKNOWN Primary Care UnavailSuze Mayer MD Primary Care Provider Glen Polk DO Unavailable Brijesh Fisher RN Unavailable Suze Wiseman MD Primary Care Provider Glen Polk DO Unavailable Suze Wiseman MD Primary Care Provider Suze Wiseman MD Primary Care Provider Glen Polk DO Unavailable Daisy Franklin RN Unavailable Unavailable SUZE WISEMAN Primary Care Unavailab BALBIR Jaramillo Attending Unavailable ZION SNYDER Referring Unavailable SUZE WISEMAN Primary Care Unavailab STEPHANI Newberry Referring Unavailable SUZE WISEMAN Primary Care Unavailab HILLARY Dye Referring Unavailable SUZE WISEMAN Primary Care Unavailab le Glen Polk DO Unavailable [phone] Rigoberto WRIGHT, Daisy Unavailable Unavailable SUZE WISEMAN Primary Care Unavailab SUZE Lynch Referring Unavailab CHELA Quispe Attending Unavailable SUZE WISEMAN Primary Care Unavailab CHELA Quispe Referring Unavailable SUZE WISEMAN Primary Care Unavailab CHELA Quispe Attending Unavailable SUZE WISEMAN Primary Care Unavailab SUZE Lynch Primary Care Unavailab SUZE Lynch Attending Unavailab SUZE Lynch Primary Care Unavailab SUZE Lynch Referring Unavailab SUZE Lynch Primary Care Unavailab CABRERA Couch Referring Unavailable CABRERA GANDARA Attending Unavailable SUZE WISEMAN Primary Care Unavailab CABRERA Couch Referring Unavailable SUZE WISEMAN Primary Care Unavailab SUZE Lynch Referring Unavailab CHELA Quispe Attending Unavailable SUZE WISEMAN Primary Care Unavailab SUZE Lynch Primary Care Unavailab SUZE Lynch Attending Unavailab SUZE Lynch Primary Care Unavailab SUZE Lynch Referring Unavailab GLEN Gonsalves Referring Unavailsantosh e GLEN POLK Attending Unavailabl e SUZE WISEMAN Primary Care Unavailab SUZE Lynch Attending Unavailab SUZE Lynch Primary Care Unavailab SUZE Lynch Referring Unavailab le Allergies Allergy Classification Reported Allergen(s) Allergy Type Date of Onset Reaction(s) Facility (10 sources) amoxicillin / clavulanate drug allergy 6 GI upset [facility] Work Phone: (20 sources) Grass pollen; Translations: [GRASS POLLEN] allergy to substance 4 Unknown [facility] Work Phone: (20 sources) mold extract; Translations: [MOLD] allergy to substance 4 Unknown [facility] Work Phone: (10 sources) SODIUM PENTOTHAL; Translations: [SODIUM PENTOTHAL] allergy to substance 6 tongue numb [facility] Work Phone: (10 sources) IODINE CONTRAST DYE; Translations: [IODINE CONTRAST DYE] allergy to substance 6 hypotension [facility] Work Phone: (1 source) Iodine (And Iodine Containting Drugs) Drug allergy (disorder) [facility] Repository (3 sources) Thiopental; Translations: [THIOPENTAL] Drug Allergy [facility] Rep[facility] (20 sources) Amoxicillin / Clavulanate; Translations: [AMOXICILLIN-PO T CLAVULANATE] Drug Allergy 3 GI Upset [facility] (20 sources) Contrast media; Translations: [CONTRAST DYE] Propensity to adverse reactions 5 [facility] (20 sources) Thiopental Drug Allergy Unknown [facility] (20 sources) Trospium; Translations: [TROSPIUM] Drug Allergy 9 Other: See Comments [facility] (20 sources) sodium pentothal [Other] Propensity to adverse reactions 5 [facility] (2 sources) OTHER; Translations: [OTHER] Propensity to adverse reactions (disorder) 5 [facility] Other [place] Repository Medications Current Medications Medication Drug Class(es) Dates Sig (Normalized) Sig (Original) acetaminophen 325 mg oral tablet (12 sources) Start: 05-10-2021 End: 10-23-2021 take 2 tablets by mouth every six hours as needed acetaminophen (TYLENOL) 325 mg tablet [The details of the medication are not available because there are pending changes by a home health clinician.] 0 05/10/2021 10/23/2021 Discontinued Completed/Discontinued Medications Medication Drug Class(es) Dates Sig (Normalized) Sig (Original) [id number] 200 actuat albuterol 0.09 mg/actuat metered dose inhaler (20 sources) beta2-Adrenergic Agonist Start: 05-06-2021 End: 11-28-2022 take 2 puff(s) by inhalation every six hours as needed for wheezing albuterol HFA (VENTOLIN HFA) 90 mcg/actuation inhaler Inhale 2 Puffs as instructed every 6 hours as needed for wheezing/shortnes s of breath. as needed 1 Each 5 10/29/2022 Active Problems Active Problems Problem Classification Problem Date Documented Date Episodic/Chronic Asthma (20 sources) Exacerbation of asthma; Translations: [Asthma] Onset: 09-03-2015 04-30-2016 Chronic Cardiac dysrhythmias (20 sources) Supraventricular tachycardia; Translations: [Supraventricular tachycardia] Onset: 10-08-2013 10-08-2013 Chronic Coagulation and hemorrhagic disorders (1 source) Thrombocytopenia, unspecified; Translations: [THROMBOCYTOPENIA UNSPECIFIED] Onset: 05-25-2018 Chronic Conduction disorders (20 sources) Presence of cardiac pacemaker; Translations: [Cardiac pacemaker in situ] Onset: 07-03-2014 04-14-2021 Chronic Delirium, dementia, and amnestic and other cognitive disorders (1 source) Senile asthenia; Translations: [Age-related physical debility] Chronic Disorders of lipid metabolism (20 sources) Mixed hyperlipidemia; Translations: [Mixed hyperlipidemia] Onset: 04-22-2021 04-22-2021 Chronic E Codes: Fall (1 source) Fall in home; Translations: [Unspecified fall, initial encounter] 03-22-2023 Episodic Esophageal disorders (20 sources) Gastro-esophageal reflux disease without esophagitis; Translations: [Gastroesophageal reflux disease] Onset: 05-25-2018 06-05-2018 Chronic Essential hypertension (20 sources) Essential (primary) hypertension; Translations: [Essential hypertension] Onset: 05-25-2018 04-22-2021 Chronic External cause codes: Natural/environment (1 source) Exposure to other specified factors, initial encounter; Translations: [EXPOSURE OTHER SPEC FACTORS INITIAL] Onset: 05-25-2018 Headache; including migraine (1 source) Tension-type headache, unspecified, not intractable; Translations: [Tension headache] Onset: 09-06-2021 Chronic Mycoses (1 source) Candidal intertrigo; Translations: [Candidiasis of skin and nail] Episodic Nonmalignant breast conditions (2 sources) Pain of breast; Translations: [Mastodynia] Episodic Nutritional deficiencies (20 sources) Vitamin D deficiency, unspecified; Translations: [Vitamin D deficiency] Onset: 01-31-2015 06-05-2018 Chronic Occlusion or stenosis of precerebral arteries (20 sources) Bilateral stenosis of carotid arteries; Translations: [Occlusion and stenosis of bilateral carotid arteries] Onset: 11-10-2016 11-10-2016 Chronic Osteoarthritis (20 sources) Degenerative joint disease involving multiple joints; Translations: [Polyosteoarthritis, unspecified] 02-20-2010 Chronic Other circulatory disease (20 sources) Inferior vena cava filter in situ; Translations: [Presence of other vascular implants and grafts] 07-26-2018 Chronic Other circulatory disease (1 source) Presence of other vascular implants and grafts; Translations: [Presence of IVC filter] Onset: 07-26-2018 Chronic Other connective tissue disease (1 source) Presence of left artificial hip joint; Translations: [PRESENCE LEFT ARTIFICIAL HIP JOINT] Onset: 05-25-2018 Chronic Other connective tissue disease (1 source) Presence of artificial knee joint, bilateral; Translations: [PRESENCE ARTIFICIAL KNEE JNT BILAT] Onset: 05-25-2018 Chronic Other connective tissue disease (20 sources) History of total knee arthroplasty; Translations: [Presence of left artificial knee joint] Onset: 04-01-2018 04-01-2018 Chronic Other connective tissue disease (20 sources) History of repair of hip joint; Translations: [Presence of left artificial hip joint] Onset: 04-01-2018 04-01-2018 Chronic Other diseases of bladder and urethra (2 sources) Overactive bladder; Translations: [OVERACTIVE BLADDER] Onset: 05-25-2018 Chronic Other diseases of bladder and urethra (20 sources) Overactive bladder; Translations: [Overactive bladder] 03-01-2019 Chronic Other hematologic conditions (1 source) Personal history of diseases of the blood and blood-forming organs and certain disorders involving the immune mechanism; Translations: [History of anemia] Onset: 04-29-2022 Episodic Other hematologic conditions (1 source) History of anemia; Translations: [Personal history of diseases of the blood and blood-forming organs and certain disorders involving the immune mechanism] Episodic Other infections; including parasitic (1 source) Personal history of other infectious and parasitic diseases; Translations: [History of COVID-19] Episodic Other injuries and conditions due to external causes (1 source) At high risk for fall; Translations: [History of falling] 03-22-2023 Episodic Other nervous system disorders (1 source) Polyneuropathy, unspecified; Translations: [POLYNEUROPATHY UNSPECIFIED] Onset: 05-25-2018 Chronic Other non-traumatic joint disorders (1 source) Hip pain; Translations: [Pain in right hip] 03-22-2023 Episodic Other non-traumatic joint disorders (1 source) Pain in right hip; Translations: [Acute hip pain, right] Onset: 03-22-2023 Episodic Other nutritional; endocrine; and metabolic disorders (1 source) Obesity, unspecified; Translations: [OBESITY UNSPECIFIED] Onset: 05-25-2018 Chronic Other nutritional; endocrine; and metabolic disorders (2 sources) Body mass index (BMI) 40.0-44.9, adult; Translations: [BODY MASS INDEX BMI 40.0-44.9 ADULT] Onset: 05-25-2018 Chronic Other nutritional; endocrine; and metabolic disorders (20 sources) Body mass index 40+ - severely obese; Translations: [Morbid (severe) obesity due to excess calories] 05-19-2021 Chronic Other nutritional; endocrine; and metabolic disorders (1 source) Morbid (severe) obesity due to excess calories; Translations: [Morbid obesity with BMI of 40.0-44.9, adult ([facility])] Onset: 05-19-2021 Chronic Other upper respiratory disease (5 sources) Seasonal allergy; Translations: [Other seasonal allergic rhinitis] Onset: 04-13-2016 04-13-2016 Chronic Other upper respiratory infections (1 source) Bacterial sinusitis; Translations: [Chronic sinusitis, unspecified] Chronic Pulmonary heart disease (18 sources) Pulmonary hypertension; Translations: [Pulmonary hypertension, unspecified] Onset: 10-29-2022 Chronic Pulmonary heart disease (20 sources) Other pulmonary embolism without acute cor pulmonale; Translations: [H/O: pulmonary embolus] Onset: 05-25-2018 05-19-2021 Episodic Residual codes; unclassified (20 sources) Obstructive sleep apnea syndrome; Translations: [Obstructive sleep apnea (adult) (pediatric)] Onset: 10-13-2020 04-14-2021 Chronic Residual codes; unclassified (1 source) Obstructive sleep apnea (adult) (pediatric); Translations: [MONTRELL (obstructive sleep apnea)] Onset: 04-14-2021 Chronic Residual codes; unclassified (1 source) Bilateral lower limb edema; Translations: [Localized edema] Episodic Spondylosis; intervertebral disc disorders; other back problems (20 sources) Degeneration of lumbar intervertebral disc; Translations: [Other intervertebral disc degeneration, lumbar region] Onset: 04-01-2018 04-01-2018 Chronic Spondylosis; intervertebral disc disorders; other back problems (1 source) Acute low back pain; Translations: [Acute bilateral low back pain without sciatica] 03-22-2023 Episodic Unclassified (1 source) Acute bilateral low back pain without sciatica; Translations: [Acute bilateral low back pain without sciatica] Onset: 03-22-2023 Past or Other Problems Problem Classification Problem Date Documented Da te Episodic/Chronic Acute posthemorrhagic anemia (1 source) Acute posthemorrhagic anemia; Translations: [ACUTE POSTHEMORRHAGIC ANEMIA] Onset: 05-25-2018 Episodic Administrative/social admission (4 sources) Advance directive discussed with patient; Translations: [Other specified counseling] Onset: 10-29-2022 Episodic Allergic reactions (1 source) Radiographic dye allergy status; Translations: [RADIOGRAPHIC DYE ALLERGY STATUS] Onset: 05-25-2018 Episodic Cardiac dysrhythmias (20 sources) Bradycardia; Translations: [Bradycardia, unspecified] Onset: 10-08-2013 10-08-2013 Episodic Chronic obstructive pulmonary disease and bronchiectasis (5 sources) Bronchitis; Translations: [Bronchitis, not specified as acute or chronic] Onset: 04-30-2016 04-30-2016 Episodic Coagulation and hemorrhagic disorders (1 source) Spontaneous ecchymoses; Translations: [SPONTANEOUS ECCHYMOSES] Onset: 08-10-2018 Episodic Conditions associated with dizziness or vertigo (20 sources) Peripheral vertigo; Translations: [Benign paroxysmal vertigo, bilateral] Onset: 07-06-2017 07-06-2017 Episodic Deficiency and other anemia (20 sources) Anemia; Translations: [Other specified anemias] Onset: 04-21-2021 04-22-2021 Episodic Genitourinary symptoms and ill-defined conditions (1 source) Frequency of micturition; Translations: [FREQUENCY OF MICTURITION] Onset: 05-25-2018 Episodic Headache; including migraine (5 sources) Sinus headache; Translations: [Headache] Onset: 04-13-2016 04-13-2016 Episodic Hemorrhoids (20 sources) Hemorrhoids; Translations: [Unspecified hemorrhoids] Onset: 07-06-2007 07-06-2007 Episodic Malaise and fatigue (20 sources) Asthenia; Translations: [Weakness] Onset: 11-19-2016 04-21-2021 Episodic Nonspecific chest pain (1 source) Other chest pain; Translations: [OTHER CHEST PAIN] Onset: 05-25-2018 Episodic Other aftercare (1 source) prison (current) use of anticoagulants; Translations: [NURSING HOME CURRNT USE ANTICOAGULANTS] Onset: 05-25-2018 Episodic Other aftercare (20 sources) Follow-up status; Translations: [Encounter for other specified aftercare] Onset: 05-22-2018 04-21-2021 Episodic Other aftercare (1 source) Other salvage determiner (current) drug therapy; Translations: [Medication management] Onset: 09-09-2022 Episodic Other circulatory disease (1 source) Hypotension, unspecified; Translations: [HYPOTENSION UNSPECIFIED] Onset: 05-25-2018 Episodic Other connective tissue disease (2 sources) Adhesive capsulitis of right shoulder; Translations: [ADHESIVE CAPSULITIS RIGHT SHOULDER] Onset: 08-10-2018 Episodic Other connective tissue disease (1 source) Other specified soft tissue disorders; Translations: [OTHER SPEC SOFT TISSUE DISORDERS] Onset: 05-25-2018 Episodic Other connective tissue disease (1 source) Complete rotator cuff tear or rupture of right shoulder, not specified as traumatic; Translations: [CMPL ROT CUFF TEAR/RUPT RT SHOULDR] Onset: 08-10-2018 Episodic Other connective tissue disease (20 sources) Dysfunction of posterior tibial tendon of left foot; Translations: [Posterior tibial tendinitis, left leg] Onset: 04-01-2018 04-01-2018 Episodic Other connective tissue disease (20 sources) Right rotator cuff syndrome; Translations: [Unspecified rotator cuff tear or rupture of right shoulder, not specified as traumatic] Onset: 08-23-2018 08-23-2018 Episodic Other connective tissue disease (20 sources) Adhesive capsulitis of right shoulder; Translations: [Adhesive capsulitis of right shoulder] Onset: 08-23-2018 08-23-2018 Episodic Other connective tissue disease (20 sources) Recurrent falls ; Translations: [Repeated falls] Onset: 11-13-2020 11-13-2020 Episodic Other connective tissue disease (20 sources) Paraparesis; Translations: [Other symptoms and signs involving the musculoskeletal system] Onset: 11-13-2020 11-13-2020 Episodic Other connective tissue disease (20 sources) Abnormal posture; Translations: [Abnormal posture] Onset: 12-17-2020 12-17-2020 Episodic Other connective tissue disease (1 source) Repeated falls; Translations: [Falls frequently] Onset: 11-13-2020 Episodic Other infections; including parasitic (1 source) Personal history of other infectious and parasitic diseases; Translations: [PERSONAL HX OTH INF AND PARASITIC DZ] Onset: 05-25-2018 Episodic Other injuries and conditions due to external causes (20 sources) Hematoma; Translations: [Other injury of unspecified body region, initial encounter] Onset: 05-22-2018 06-05-2018 Episodic Other lower respiratory disease (5 sources) Chronic cough; Translations: [Cough] Onset: 05-25-2016 05-25-2016 Episodic Other lower respiratory disease (20 sources) Dyspnea on exertion; Translations: [Dyspnea, unspecified] Onset: 07-11-2018 07-11-2018 Episodic Other lower respiratory disease (2 sources) Dyspnea, unspecified; Translations: [EVANS (dyspnea on exertion)] Onset: 07-11-2018 Episodic Other lower respiratory disease (1 source) Other forms of dyspnea; Translations: [Dyspnea on exertion] Onset: 07-11-2018 Episodic Other nervous system disorders (20 sources) Abnormal gait; Translations: [Unsteadiness on feet] Onset: 11-19-2016 04-21-2021 Episodic Other upper respiratory disease (1 source) Other specified disorders of nose and nasal sinuses; Translations: [OTH SPEC D/O NOSE NASAL SINUSES] Onset: 05-25-2018 Episodic Other upper respiratory infections (20 sources) Sinusitis; Translations: [Posterior rhinorrhea] Onset: 10-18-2007 05-25-2016 Episodic Phlebitis; thrombophlebitis and thromboembolism (20 sources) Acute embolism and thrombosis of superficial veins of right upper extremity; Translations: [Personal history of other venous thrombosis and embolism] Onset: 05-12-2018 05-19-2021 Episodic Shock (1 source) Hypovolemic shock; Translations: [HYPOVOLEMIC SHOCK] Onset: 05-25-2018 Episodic Superficial injury; contusion (1 source) Contusion of right upper arm, initial encounter; Translations: [CONTUSION RIGHT UPPER ARM INITIAL] Onset: 05-25-2018 Episodic Syncope (20 sources) Syncope and collapse; Translations: [Syncope and collapse] Onset: 11-19-2013 07-19-2021 Episodic Viral infection (20 sources) Postherpetic neuralgia; Translations: [Other postherpetic nervous system involvement] Onset: 07-15-2016 07-15-2016 Episodic Results Test Name Value Interpretation Reference Range Facil ity Vital Signs Date Time Vital Sign Value Performing Clinician Rona mccabe 04-01-2023 08:42-0500 Body weight 112.3 kg Glen Polk DO Work Phone: [facility] 04-01-2023 08:42-0500 Diastolic blood pressure 70 mm[Hg] Glen Ivonneluciano DO Work Phone: [facility] 04-01-2023 08:42-0500 Heart rate 82 /min Glen Polk DO Work Phone: [facility] 04-01-2023 08:42-0500 SaO2% (BldA) [Mass fraction] 97 % Glen Mary Jane DO Work Phone: [facility] 04-01-2023 08:42-0500 Systolic blood pressure 122 mm[Hg] Glen Mary Jane DO Work Phone: [facility] 03-22-2023 13:31-0500 Body weight 112.4 kg Suze Wiseman MD Work Phone: [facility] 03-22-2023 13:31-0500 Diastolic blood pressure 66 mm[Hg] Suze Wiseman MD Work Phone: [facility] 03-22-2023 13:31-0500 Heart rate 101 /min Suze Wiseman MD Work Phone: [facility] 03-22-2023 13:31-0500 Respiratory rate 18 /min Suze Wiseman MD Work Phone: [facility] 03-22-2023 13:31-0500 SaO2% (BldA) [Mass fraction] 97 % Suze Wiseman MD Work Phone: [facility] 03-22-2023 13:31-0500 Systolic blood pressure 126 mm[Hg] Suze Wiseman MD Work Phone: [facility] 11-01-2022 08:45-0400 Body height 162.6 cm Cabrera Gandara MD Work Phone: [facility] 11-01-2022 08:45-0400 Body weight 116.12 kg Cabrera Gandara MD Work Phone: [facility] 11-01-2022 08:45-0400 Diastolic blood pressure 70 mm[Hg] Cabrera Gandara MD Work Phone: [facility] 11-01-2022 08:45-0400 Heart rate 79 /min Cabrera Gandara MD Work Phone: [facility] 11-01-2022 08:45-0400 SaO2% (BldA) [Mass fraction] 99 % Cabrera Gandara MD Work Phone: [facility] 11-01-2022 08:45-0400 Systolic blood pressure 122 mm[Hg] Cabrera Gandara MD Work Phone: [facility] 10-29-2022 09:48-0400 Diastolic blood pressure 68 mm[Hg] Suze Wiseman MD Work Phone: [facility] 10-29-2022 09:48-0400 Systolic blood pressure 126 mm[Hg] Suze Wiseman MD Work Phone: [facility] 10-29-2022 08:59-0400 Body weight 116.03 kg Suze Wiseman MD Work Phone: [facility] 10-29-2022 08:59-0400 Heart rate 78 /min Suze Wiseman MD Work Phone: [facility] 10-29-2022 08:59-0400 Respiratory rate 20 /min Suze Wiseman MD Work Phone: [facility] 10-29-2022 08:59-0400 SaO2% (BldA) [Mass fraction] 98 % Suze Wiseman MD Work Phone: [facility] 04-30-2022 08:53-0500 Body temperature 98.4 [degF] Suze Wiseman MD Work Phone: [facility] 04-30-2022 08:53-0500 Body weight 114.22 kg Suze Wiseman MD Work Phone: [facility] 04-30-2022 08:53-0500 Diastolic blood pressure 68 mm[Hg] Suze Wiseman MD Work Phone: [facility] 04-30-2022 08:53-0500 Heart rate 83 /min Suze Wiseman MD Work Phone: [facility] 04-30-2022 08:53-0500 Respiratory rate 28 /min Suze Wiseman MD Work Phone: [facility] 04-30-2022 08:53-0500 SaO2% (BldA) [Mass fraction] 99 % Suze Wiseman MD Work Phone: [facility] 04-30-2022 08:53-0500 Systolic blood pressure 126 mm[Hg] Suze Wiseman MD Work Phone: [facility] 02-18-2022 14:20-0400 Body weight 114.13 kg Suze Wiseman MD Work Phone: [facility] 02-18-2022 14:20-0400 Diastolic blood pressure 80 mm[Hg] Suze Wiseman MD Work Phone: [facility] 02-18-2022 14:20-0400 Heart rate 73 /min Suze Wiseman MD Work Phone: [facility] 02-18-2022 14:20-0400 Respiratory rate 16 /min Suze Wiseman MD Work Phone: [facility] 02-18-2022 14:20-0400 SaO2% (BldA) [Mass fraction] 98 % Suze Wiseman MD Work Phone: [facility] 02-18-2022 14:20-0400 Systolic blood pressure 134 mm[Hg] uSze Wiseman MD Work Phone: [facility] 10-23-2021 08:41-0400 Body temperature 97.11 [degF] Suze Wiseman MD Work Phone: [facility] 10-23-2021 08:41-0400 Body weight 113.4 kg Suze Wiseman MD Work Phone: [facility] 10-23-2021 08:41-0400 Diastolic blood pressure 68 mm[Hg] Suze Wiseman MD Work Phone: [facility] 10-23-2021 08:41-0400 Heart rate 80 /min Suze Wiseman MD Work Phone: [facility] 10-23-2021 08:41-0400 Respiratory rate 16 /min Suze Wiseman MD Work Phone: [facility] 10-23-2021 08:41-0400 Systolic blood pressure 118 mm[Hg] Suze Wiseman MD Work Phone: [facility] 09-21-2021 09:56-0400 Body height 162.6 cm Glen Polk DO Work Phone: [facility] 09-21-2021 09:56-0400 Body weight 112.22 kg Glen Polk DO Work Phone: [facility] 09-21-2021 09:56-0400 Diastolic blood pressure 74 mm[Hg] Glen Polk DO Work Phone: [facility] 09-21-2021 09:56-0400 Heart rate 67 /min Glen Polk DO Work Phone: [facility] 09-21-2021 09:56-0400 SaO2% (BldA) [Mass fraction] 96 % Glen Polk DO Work Phone: [facility] 09-21-2021 09:56-0400 Systolic blood pressure 152 mm[Hg] Glen Polk DO Work Phone: [facility] 06-15-2021 15:32-0500 Diastolic blood pressure 74 mm[Hg] Joni Grzegorzfener PT Work Phone: [facility] 06-15-2021 15:32-0500 Heart rate 68 /min Joni Rufener PT Work Phone: [facility] 06-15-2021 15:32-0500 Respiratory rate 16 /min Joni Rufener PT Work Phone: [facility] 06-15-2021 15:32-0500 SaO2% (BldA) [Mass fraction] 96 % Joni Grzegorzfener PT Work Phone: [facility] 06-15-2021 15:32-0500 Systolic blood pressure 128 mm[Hg] Joni Rufener PT Work Phone: [facility] 06-15-2021 14:45-0500 Body temperature 96.49 [degF] Joni Grzegorzfener PT Work Phone: [facility] 06-15-2021 14:45-0500 Body weight 108.86 kg Joni Grzegorzfener PT Work Phone: [facility] 01-07-2017 14:32-0400 BMI (Body Mass Index) 40.56 kg/m2 Lyubov Staley [facility] Work Phone: 01-07-2017 14:32-0400 Body Temperature 98.8 [degF] Lyubov Staley [facility] Work Phone: 01-07-2017 14:32-0400 BP Diastolic 81 mm[Hg] Lyubov Staley [facility] Work Phone: 01-07-2017 14:32-0400 BP Systolic 125 mm[Hg] Lyubov Staley [facility] Work Phone: 01-07-2017 14:32-0400 Height 170.18 cm [facility]ubov [facility] Work Phone: 01-07-2017 14:32-0400 Pulse (Heart Rate) 92 /min [facility]ubov [facility] Work Phone: 01-07-2017 14:32-0400 Respiratory Rate 18 /min [facility]ubov [facility] Work Phone: 01-07-2017 14:32-0400 Weight 117.48 kg Lyubov [facility] Work Phone: 12-21-2016 07:00-0400 BMI (Body Mass Index) 39.93 kg/m2 [facility] Work Phone: 12-21-2016 07:00-0400 Body Temperature 98.2 [degF] Lyubov [facility] Work Phone: 12-21-2016 07:00-0400 BP Diastolic 77 mm[Hg] [facility]ubov [facility] Work Phone: 12-21-2016 07:00-0400 BP Systolic 120 mm[Hg] [facility]ubov [facility] Work Phone: 12-21-2016 07:00-0400 Height 170.18 cm [facility]ubov [facility] Work Phone: 12-21-2016 07:00-0400 Pulse (Heart Rate) 88 /min [facility] Work Phone: 12-21-2016 07:00-0400 Respiratory Rate 18 /min [facility]ubov [facility] Work Phone: 12-21-2016 07:00-0400 Weight 115.67 kg [facility] Work Phone: 08-04-2016 08:36-0400 BMI (Body Mass Index) 40.25 kg/m2 Bessy Estes CNP [facility] Work Phone: 08-04-2016 08:36-0400 Body Temperature 96.4 [degF] Bessy Estes CNP [facility] Work Phone: 08-04-2016 08:36-0400 BP Diastolic 71 mm[Hg] Bessy Estes CNP [facility] Work Phone: 08-04-2016 08:36-0400 BP Systolic 127 mm[Hg] Bessy Estes CNP [facility] Work Phone: 08-04-2016 08:36-0400 Height 170.18 cm Bessy Estes CNP [facility] Work Phone: 08-04-2016 08:36-0400 Pulse (Heart Rate) 67 /min Bessy Estes CNP [facility] Work Phone: 08-04-2016 08:36-0400 Respiratory Rate 18 /min Bessy Estes CNP [facility] Work Phone: 08-04-2016 08:36-0400 Weight 116.58 kg Bessy Estes CNP [facility] Work Phone: 05-25-2016 11:23-0500 Body Temperature 97.34 [degF] Bessy Estes CNP [facility] Work Phone: 05-25-2016 11:23-0500 BSA (Body Surface Area) 2.27 m2 Bessy Estes CNP [facility] Work Phone: 05-25-2016 11:23-0500 Height 170.18 cm Bessy Estes CNP [facility] Work Phone: 05-25-2016 11:23-0500 Weight 119.09 kg Lyubov Staley [facility] Work Phone: Encounters Encounter Date Encounter Type Care Provider Facility Start: 05-11-2023 End: 05-12-2023 ambulatory SUZE WISEMAN Facility:[facility] Start: 04-11-2023 ambulatory Daisy Franklin RN Ambul atory Care Management Procedures Date Procedure Procedure Detail Performing Clinician Start: 04-01-2023 Ecg routine ecg w/le ast 12 lds i&r only [facility] Provider Start: 11-01-2022 PACEMAKER CLINIC CHECK Cabrera Gandara MD Work Phone: Start: 09-29-2022 PACEMAKER REMOTE CHECK Cabrera Gandara MD Work Phone: Start: 06-02-2022 PACEMAKER REMOTE CHECK Cabrera Gandara MD Work Phone: Start: 04-20-2022 Diagnostic mammograp hy computer-aided detcj bi Suze Wiseman MD Work Phone: Start: 04-05-2022 PACEMAKER CLINIC CHECK Cabrera Gandara MD Work Phone: Start: 01-11-2022 PACEMAKER REMOTE CHECK Cabrera Gandara MD Work Phone: Start: 10-23-2021 Adult depression scr eening assessment Suze Wiseman MD Work Phone: Start: 09-16-2021 PACEMAKER REMOTE CHECK Cabrera Gandara MD Work Phone: Start: 08-04-2021 Myocardial spect mul maricarmen studies Stephani Bennett APRN.CASTINGS DRAFTER Work Phone: Start: 10-03-2020 Adult depression scr eening assessment Joni Baker PT Work Phone: Start: 05-18-2018 Insertion of Intralu carlos Device into Inferior Vena Cava, Percutaneous Approach SUZE WISEMAN Start: 05-17-2018 Insertion of Infusio n Device into Superior Vena Cava, Percutaneous Approach SUZE WISEMAN Start: 05-17-2018 Transfusion of Nonau tologous Red Blood Cells into Peripheral Vein, Percutaneous Approach SUZE WISEMAN Start: 05-17-2018 Ultrasonography of S uperior Vena Cava, Guidance SUZE WISEMAN Start: 04-13-2016 End: 04-21-2016 Ct maxillofacial w/o dye Bessy haney [employer]INGS DRAFTER Work Phone: Start: 04-13-2016 End: 04-21-2016 DMB Bessy Dewey DIETETICS DIRECTOR Work Phone: Start: 04-13-2016 End: 04-14-2016 ENT referral Bessy Dewey DIETETICS DIRECTOR Work Phone: Start: 04-13-2016 End: 04-21-2016 Follow Up Appt 1 month Bessy martinez [employer]STINGS DRAFTER Work Phone: Start: 04-13-2016 End: 04-21-2016 Pulmonary Function Test - complete Bessy Estes [employer]STINGS DRAFTER Work Phone: Plan of Treatment Date Care Activity Detail Author Start: 10-26-2028 Urine microalbumin profile [facility] Start: 09-09-2025 DIABETES SCREEN DIABETES SCREEN [facility] Start: 09-09-2025 Diabetes Screening Diabetes Screenin g [facility] Start: 04-29-2025 DIABETES SCREEN DIABETES SCREEN [facility] Start: 08-21-2024 DIABETES SCREEN DIABETES SCREEN [facility] Start: 06-04-2024 DIABETES SCREEN DIABETES SCREEN [facility] Start: 04-01-2024 BP Controlled (<130/80) BP Controlle d (<130/80) [facility] Start: 03-22-2024 Annual PCP Team Display Fabricator arnulfo Disease Visit Annual PCP Team Chronic Disease Visit [facility] Start: 03-22-2024 BP Controlled (<130/80) BP Controlle d (<130/80) [facility] Start: 01-28-2024 Annual PCP Team Display Fabricator arnulfo Disease Visit Annual PCP Team Chronic Disease Visit [facility] Start: 01-28-2024 BP Controlled (<130/80) BP Controlle d (<130/80) [facility] Start: 11-02-2023 BP CONTROLLED (<130/80) BP CONTROLLE D (<130/80) [facility] Start: 10-30-2023 ANNUAL PCP TEAM CENTRAL SUPPLY CLERK ARNULFO DISEASE VISIT ANNUAL PCP TEAM CHRONIC DISEASE VISIT [facility] Start: 10-30-2023 BP CONTROLLED (<130/80) BP CONTROLLE D (<130/80) [facility] Start: 10-30-2023 SHINGRIX VACCINE (1 of 2) RALPH GRIX VACCINE (1 of 2) [facility] Immunizations Immunization Date Immunization Notes Care Provider Darek gale 09-25-2021 COVID-19 original vaccine, age 12+ yr, monovalent (PFIZER-BIONTECH - LOVE TOP) Suze Wiseman MD Work Phone: [facility] Work Phone: 06-19-2020 COVID-19 vaccine, ag e 12+ yr (PFIZER-BIONTECH - PURPLE TOP) Joni Rufener PT Work Phone: [facility] 05-30-2020 COVID-19 vaccine, ag e 12+ yr (PFIZER-BIONTECH - PURPLE TOP) Joni Rufener PT Work Phone: [facility] 03-21-2020 influenza, high-dose , quadrivalent vaccine (FLUZONE HIGH DOSE QUADRIVALENT) Joni Rufener PT Work Phone: [facility] 03-21-2020 influenza virus vaccine, unspecified formulation Daisy Franklin RN [facility] 02-24-2020 influenza, high dose seasonal, preservative-free Joni Rufener PT Work Phone: [facility] 03-01-2019 influenza, high dose seasonal, preservative-free Joni Rufener PT Work Phone: [facility] 10-26-2018 tetanus and diphther ia toxoids, adsorbed, preservative free, for adult use (5 Lf of tetanus toxoid and 2 Lf of diphtheria toxoid) Joni Rufener PT Work Phone: [facility] 04-16-2016 influenza, high dose seasonal, preservative-free Joni Rufener PT Work Phone: [facility] Work Phone: 04-16-2016 pneumococcal polysaccharide vaccine, 23 valent Joni Rufener PT Work Phone: [facility] Work Phone: 01-27-2015 influenza, high dose seasonal, preservative-free Joni Rufener PT Work Phone: [facility] 01-27-2015 pneumococcal conjuga te vaccine, 13 valent Joni Rufener PT Work Phone: [facility] 03-25-2014 influenza, high dose seasonal, preservative-free Joni Rufener PT Work Phone: [facility] 2013 tetanus toxoid, redu yady diphtheria toxoid, and acellular pertussis vaccine, adsorbed Joni Rufener PT Work Phone: [facility] 02-01-2006 pneumococcal polysaccharide vaccine, 23 valent Joni Rufener PT Work Phone: [facility] Work Phone: 09-03-2002 tetanus and diphther ia toxoids, adsorbed, preservative free, for adult use (2 Lf of tetanus toxoid and 2 Lf of diphtheria toxoid) Joni Rufener PT Work Phone: [facility] Work Phone: Payers Date Payer Category Payer Medicare MEDICARE MEDICAR E A AND B [id number] 2007-Present [phone] [place] [address] Medicare [id number] 2007 Medicare MEDICARE MEDICAR E A AND B [id number] 2007-Present [phone] [place] [address] Medicare [id number] 2005 Private Health Insurance ANTONIO DEVI PPO [id number] 2005-Present [phone] [address] [place] [address] PPO [id number] 2005 Private Health Insurance ANTONIO Dewey IGNA PPO [id number] 2005-Present [phone] [address] [place] [address] PPO [id number] 1959 Medicare [id number] 1959 Private Health Insurance [id number] 1940 Unknown [id number] 1940 Unknown [id number] Social History Date Type Detail Facility Start: 12-29-2016 End: 02-18-2022 Tobacco smoking status NHIS Never smoked tobacco [facility] Start: 05-21-2021 End: 04-01-2023 Alcohol intake Current drinker of alcohol (finding) [facility] Start: 12-29-2016 History SDOH Alcohol Comment ocas-monthly [facility] Start: 1940 Sex Assigned At Not on file [facility] Start: 07-12-2021 End: 02-18-2022 Exposure to SARS-CoV-2 (event) Not sure [facility] Start: 12-29-2016 End: 02-18-2022 Tobacco use and exposure Smokeless tobacco non-user [facility] Work Phone: Start: 04-06-2020 End: 11-01-2022 History of Social function [facility] Work Phone: Start: 04-06-2020 End: 11-01-2022 Tobacco use panel [facility] Work Phone: Adult Depression Screening Assessment 0 [facility] Work Phone: (I/We) worried wheth er (my/our) food would run out before (I/we) got money to buy more. Never true [facility] Goals Date Patient Goal Desired Activity /State Personal health goal Clinical Notes 03-31-2021 to 06-01-2023 Daisy Franklin RN - 04/11/2023 10:03 AM ESTTelephone Encounter - Suze Wiseman MD - 04/07/2023 9:23 AM ESTTelephone Encounter - Evy Roque RN - 04/07/2023 9:11 AM EST Note Date & Type Note Facility 06-01-2023 Note HNO ID: [id number] Author: DAISY FRANKLIN RN Service: ? Author Type: Registered Nurse Type: Progress Notes Filed: 06/01/2023 15:02 Note Text: CD Telephonic Outreach Provider Action/FYI -htn, asthma Patient denies any questions, concerns, or needs. Reviewed upcoming appointments. Contacted for: Routine Telephonic Outreach Contact made with patient: Yes Patient identified by name and date of . Discussed care with patient Are you experiencing any new or worsening symptoms you need to talk about today? No Disease Specific Do you check your blood pressure at home? No Do you have new or worsening shortness of breath with activity? No Based on bonderite operator, the following disposition is advised: No symptoms or symptoms present, not severe. Routed to: No Action Needed HARVINDER Education Provided this Outreach: No Daisy Franklin RN June 01, 2023 3:00 PM [facility] 06-01-2023 Note Patient Outreach (AM BC) MONA JANSEN ([id number]) 1940 F [facility] Date Time Provider Department 06/01/23 DAISY FRANKLIN [facility] [place] your visit today, we recorded the following information about you: Daisy Franklin RN 06/01/2023 3:02 PM Signed [facility] Telephonic Outreach Provider Yashira/FYI -htn, asthma Patient denies any questions, concerns, or needs. Reviewed upcoming appointments. Contacted for: Routine Telephonic Outreach Contact made with patient: Yes Patient identified by name and date of . Discussed care with patient Are you experiencing any new or worsening symptoms you need to talk about today? No Disease Specific Do you check your blood pressure at home? No Do you have new or worsening shortness of breath with activity? No Based on bonderite operator, the following disposition is advised: No symptoms or symptoms present, not severe. Routed to: No Action Needed HARVINDER Education Provided this Outreach: No Daisy Franklin RN June 01, 2023 3:00 PM Allergies As of Date: 06/01/2023 Noted Allergy Reaction AUGMENTIN (AMOXICILLIN-POT CLAVUL*05/17/2012 8 - GI Upset GRASS POLLEN 10/09/2013 16 - Unknown IODINE (CONTRAST DYE) 02/01/2005 Comments: hypotension MOLD 10/09/2013 16 - Unknown SODIUM PENTOTHAL (THIOPENTAL) 16 - Unknown TROSPIUM 10/31/2018 14 - Other: See Comments Comments: Leg weakness Date Reviewed: 05/11/2023 Reviewed by: Yaquelin Arguello LPN - Fully Assessed Reason for Visit: CDM [Other] Cmt: Community Monitoring Outreach Call Prescriptions as of 06/01/2023 - rosuvastatin (CRESTOR) 5 mg tablet Take 1 tablet by mouth daily at bedtime. - lisinopril 2.5 mg tablet Take 1 tablet by mouth once daily. - albuterol HFA (VENTOLIN HFA) 90 mcg/actuation inhaler Inhale 2 Puffs as instructed every 6 hours as needed for wheezing/shortness of breath. as needed - pantoprazole DR (PROTONIX) 40 mg tablet Take 1 tablet by mouth once daily as needed. - MEDICAL SUPPLY Tubigrip elastic support bandages to knees bilaterally to be worn daily for bilateral lower extremity edema. - fluticasone (FLONASE ALLERGY RELIEF) 50 mcg/actuation nasal spray Use 1 [place] in each nostril once daily. - BIPAP Formal mask refitting: Try New mask. Change pressure to BiPAP @ 9/6 cm of water with humidification. Mask (per patient preference) optional chin strap (if indicated) , filters, tubing, humidifier and lifetime supplies. - Cholecalciferol, Vitamin D3, 5,000 unit cap Take 1 capsule by mouth once daily. Meds Comments as of 09/08/2022: Takes Elderberry defense every day as of winter 201805/10/21 severe interaction: K/antivert September 08, 2022 Denies new medications or medication changes within the last 30 days. Fernanda Urbina RN Problem List As Of Date 06/01/2023 Noted Resolved OVERWEIGHT [E66.9] 11/10/2016 Essential hypertension [I10] Mixed hyperlipidemia [E78.2] GENERAL OSTEOARTHROSIS [M15.9] Swelling, mass, or lump in chest [R22.2] 06/06/2007 02/20/2010 HEMORRHOIDS NOS [K64.9] 07/06/2007 POSTNASAL DRIP [R09.82] 10/18/2007 PSVT (paroxysmal supraventricular tachycardia) *10/08/2013 Bradycardia [R00.1] 10/08/2013 GERD (gastroesophageal reflux disease) [K21.9] Sick sinus syndrome (HCC) [I49.5] 10/23/2013 Syncope and collapse [R55] 11/19/2013 Cardiac pacemaker in situ [Z95.0] 07/03/2014 Vitamin D deficiency [E55.9] 01/31/2015 Acute back pain with sciatica [M54.40] 06/05/2015 05/19/2021 Mild intermittent asthma without complication [*09/03/2015 Morbid obesity due to excess calories (HCC) [E6*09/14/2015 11/10/2016 Post herpetic neuralgia [B02.29] 07/15/2016 Morbid obesity with BMI of 40.0-44.9, adult (HC*11/10/2016 12/24/2016 Bilateral carotid artery stenosis [I65.23] 11/10/2016 Unsteady gait [R26.81] 11/19/2016 Generalized weakness [R53.1] 11/19/2016 Obesity (BMI 35.0-39.9 without comorbidity) [E6*12/24/2016 12/29/2016 Morbid obesity with BMI of 40.0-44.9, adult (HC* Benign paroxysmal vertigo of both ears [H81.13] 07/06/2017 Sepsis due to urinary tract infection (HCC) [A4*11/20/2017 11/26/2017 Hyponatremia [E87.1] 11/21/2017 11/26/2017 Weakness [R53.1] 11/21/2017 11/26/2017 RUPERT (acute kidney injury) (HCC) [N17.9] 11/21/2017 11/26/2017 Acute rhinosinusitis [J01.90] 11/21/2017 11/26/2017 Obesity, Class III, BMI >= 40 [E66.01] 11/21/2017 05/19/2021 Acute asthma exacerbation [J45.901] 11/26/2017 11/26/2017 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*04/01/2018 Status post total right knee replacement [Z96.6*04/01/2018 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.642] 04/01/2018 Lumbar degenerative disc disease [M51.36] 04/01/2018 Posterior tibial tendon dysfunction, left [M76.*04/01/2018 History of DVT (deep vein thrombosis) [Z86.718] 05/12/2018 Aftercare [Z51.89] 05/22/2018 Hematoma [T14.8XXA] 05/22/2018 Other pulmonary embolism without acute cor pulm*05/22/19 (more content not included)... [facility] 05-11-2023 Note HNO ID: [id number] Author: SUZE WISEMAN MD Service: ? Author Type: Physician Type: Progress Notes Filed: 05/12/2023 11:36 Note Text: Chief Complaint Patient presents with: 6 Month Exam HPI Mona Jansen is a 82 year old female who presents here today for Above Complaints. Patient has been in good health without hospitalizations or ER visits. No falls since last OV in March. Previous HPI: Asthma: managed by Dr. Martins at [facility] with last OV earlier this year. Records not available today. States that she continues to have EVANS and they referred her to [facility]. No changes to regimen per pulmonology. Using albuterol 1-2 times per day for SOB. Saw Dr. Mirza and they also did not make any changes. Recommended she use neti pot 2 times per day for her sinuses. Discussed EVANS with cardiology at appointment in March without change in regimen. Refusing statin for LDL >100. F/u 1 year. Recommended she continue current regimen and use Bipap on a nightly basis which she has been compliant with. States the BIpap dries out her sinuses, but the neti pot has helped some with this. Wearing only 4 hours per night. Has seen sleep medicine before without improvement. Refusing repeat referral. GERD: Taking protonix PRN which works well for her. Needing about once per month. BP elevated >130/80 on initial check. Reading at home have been in the 130-150/50-70's this last few days. Drinking 1 cup of coffee per day. Not adding salt. Denies HTN symptoms. Patient has not seen Dr. Serrato for urinary incontinence in at least a couple years. Admits to urinary urgency without frequency, dysuria, hematuria. Not on medication at this time. Has been on oxybutynin with side effect of burning. PHQ-2 / Depression screen He in the past two weeks denies having felt down, depressed, hopeless or with little interest or pleasure in doing things. Using cane for ambulation without falls since last OV. Has living will and DPOA at home. Would like to be DNR CCA. Interim: Patient states that her back and hip pain have resolved after fall back in March. Treated with flexeril and meloxicam and pain resolved after 2 weeks. Did not need PT. Using cane for ambulation and feels steady, but thinks she would like to get back to [place] to exercise regularly after COVID season. Refusing COVID vaccine today. Brought in lipid panel to review which appears to be improved from 1 year ago. Refusing statins. No changes at last OV with cardiology in April. Recommended she continue current regimen, work on exercise for deconditioning and follow up with EP every 3 months for pacemaker checks. BP well controlled on lisinopril. Needs refill today. MONTRELL symptoms controlled with nightly Bipap. Denies daytime somnolence, snoring. GERD: Patient has protonix at home which she uses about once per week for heartburn symptoms. Working well at current dosage. PHQ-2 / Depression screen He in the past two weeks denies having felt down, depressed, hopeless or with little interest or pleasure in doing things. Past medical history, appointments, medications, allergies reviewed. Previous Medical History PAST MEDICAL HISTORY Diagnosis Date Asthma Seeing Dr. Martins At high risk for falls Bilateral carotid artery stenosis Mild, left worse than right. Diaphragmatic hernia without mention of obstruction or gangrene DVT (deep venous thrombosis) ([facility]) 05/2018 Generalized osteoarthrosis, unspecified site GERD (gastroesophageal reflux disease) Hematoma Dr. Zelaya Hemorrhage of rectum and anus Morbid obesity ([facility]) MONTRELL (obstructive sleep apnea) Other and unspecified hyperlipidemia Overactive bladder Pacemaker Presence of IVC filter Pulmonary embolism ([facility]) Seasonal allergies Dr. Choi SSS (sick sinus syndrome) ([facility]) Seeing Dr. Amalfitano Statin declined SVT (supraventricular tachycardia) Unspecified essential hypertension Urinary incontinence Dr. Serrato Vitamin D deficiency Previous Surgical History PAST SURGICAL HISTORY Procedure Laterality Date ANESTH,PACEMAKER INSERTION ARTHRP ACETBLR/PROX FEM PROSTC AGRFT/ALGRFT 08/13/2005 Hip replacement, total left ARTHRP KNE CONDYLEANDPLATU MEDIALANDLAT COMPARTMENTS 04/05/2005 Knee replacement, total left ARTHRP KNE CONDYLEANDPLATU MEDIALANDLAT COMPARTMENTS 01/2006 Knee replacement, total right COLONOSCOPY FLX DX W/COLLJ SPEC WHEN PFRMD 08/03/2007 COLONOSCOPY FLX DX W/COLLJ SPEC WHEN PFRMD 08/03/2007 Colonoscopy COLONOSCOPY FLX DX W/COLLJ SPEC WHEN PFRMD 09/18/2015 Colonoscopy (MAC) ESOPHAGOGASTRODUODENOSCOPY TRANSORAL DIAGNOSTIC 08/24/2011 EGD ESOPHAGOGASTRODUODENOSCOPY TRANSORAL DIAGNOSTIC 09/18/2015 EGD (MAC) IVC FILTER 05/2018 PAST SURGICAL HISTORY OF 10/2013 Pacer placement Family History FAMILY HISTORY Problem Relation Age of Onset Hypertension Mother Heart Mother AR at age 75 Heart Father AR at age (more content not included)... [facility] 05-05-2023 Note Patient Outreach (AM [facility]) MONA JANSEN ([id number]) 1940 F [facility] Date Time Provider Department 05/05/23 DAISY FRANKLIN During your visit today, we recorded the following information about you: Daisy Franklin, RN 05/05/2023 11:24 AM Signed CDM Telephonic Outreach Provider Action/ -htn, asthma Patient states she totally forgot about her PCP appointment on 05/03 patient states her had a heart procedure that day and it slipped her mind. Route to Navigation Team to assist with rescheduling with PCP. Patient denies any questions/concerns/needs related to their chronic health condition. Reviewed upcoming appointments. Contacted for: Routine Telephonic Outreach Contact made with patient: Yes Patient identified by name and date of . Discussed care with patient Are you experiencing any new or worsening symptoms you need to talk about today? No Disease Specific Do you check your blood pressure at home? No Do you have new or worsening shortness of breath with activity? No Based on bonderite operator, the following disposition is advised: No symptoms or symptoms present, not severe. Routed to: No Action Needed HARVINDER Education Provided this Outreach: No Daisy Franklin RN May 05, 2023 11:22 AM Eliu Vilchis MA 05/05/2023 11:47 AM Signed POPULATION HEALTH NAVIGATION OUTREACH Action/FYI May 05, 2023 Spoke with pt. Pt rescheduled for 6 mo follow up appt on 05/11/23 with PCP. CDM appt needed for: Patient states she totally forgot about her PCP appointment on 05/03 patient states her had a heart procedure that day and it slipped her mind. Route to Navigation Team to assist with rescheduling with PCP. Patient Identified by Name and : YES, via phone Outreach Outcome/Action Spoke to patient / parent / legal guardian: Patient scheduled Did you use a PCP flex slot to schedule this appointment? No Reason for Outreach Community Monitoring Pool Payer: Payor: MEDICARE / Plan: MEDICARE A AND B / Product Type: Medicare / Care Gap Reviewed:: Follow-up appointment Reminder: Reminder note to check Health Maintenance for items below Health Maintenance items due: RSV Vaccine(1 - 1-dose 60+ series) Never done Influenza Vaccine(1) due on 12/31/2022 Covid-19 Vaccine(2022- season) due on 12/31/2022 Advance Directive Discussion due on 05/02/2023 Depression Assessment due on 05/02/2023 Navigation Signature: Eliu Vilchis MA May 05, 2023 11:40 AM Allergies As of Date: 05/05/2023 Noted Allergy Reaction AUGMENTIN (AMOXICILLIN-POT CLAVUL*05/17/2012 8 - GI Upset GRASS POLLEN 10/09/2013 16 - Unknown IODINE (CONTRAST DYE) 02/01/2005 Comments: hypotension MOLD 10/09/2013 16 - Unknown SODIUM PENTOTHAL (THIOPENTAL) 16 - Unknown TROSPIUM 10/31/2018 14 - Other: See Comments Comments: Leg weakness Date Reviewed: 04/01/2023 Reviewed by: Keily Wong Ma - Fully Assessed Reason for Visit: CDM [Other] Cmt: Community Monitoring Outreach Call Prescriptions as of 05/05/2023 - cyclobenzaprine (FLEXERIL) 5 mg tablet Take 1 tablet by mouth two times a day as needed. - albuterol HFA (VENTOLIN HFA) 90 mcg/actuation inhaler Inhale 2 Puffs as instructed every 6 hours as needed for wheezing/shortness of breath. as needed - pantoprazole DR (PROTONIX) 40 mg tablet Take 1 tablet by mouth once daily as needed. - lisinopril 2.5 mg tablet Take 1 tablet by mouth once daily. - MEDICAL SUPPLY Tubigrip elastic support bandages to knees bilaterally to be worn daily for bilateral lower extremity edema. - fluticasone (FLONASE ALLERGY RELIEF) 50 mcg/actuation nasal spray Use 1 [place] in each nostril once daily. - BIPAP Formal mask refitting: Try New mask. Change pressure to BiPAP @ 9/6 cm of water with humidification. Mask (per patient preference) optional chin strap (if indicated) , filters, tubing, humidifier and lifetime supplies. - Cholecalciferol, Vitamin D3, 5,000 unit cap Take 1 capsule by mouth once daily. Meds Comments as of 09/08/2022: Takes Mobile2[employer] [place] defense every day as of winter 201805/10/21 severe interaction: K/antivert September 08, 2022 Denies new medications or medication changes within the last 30 days. Fernanda Urbina RN Problem List As Of Date 05/05/2023 Noted Resolved OVERWEIGHT [E66.9] 11/10/2016 Essential hypertension [I10] Mixed hyperlipidemia [E78.2] GENERAL OSTEOARTHROSIS [M15.9] Swelling, mass, or lump in chest [R22.2] 06/06/2007 02/20/2010 HEMORRHOIDS NOS [K64.9] 07/06/2007 POSTNASAL DRIP [R09.82] 10/18/2007 PSVT (paroxysmal supraventricular tachycardia) *10/08/2013 Bradycardia [R00.1] 10/08/2013 GERD (gastroesophageal reflux disease) [K21.9] Sick sinus syndrome (HCC) [I49.5] 10/23/2013 Syncope and collapse [R55] 11/19/2013 Cardiac pacemaker in situ [Z95.0] 07/03/2014 Vitamin D deficiency [E55.9] 01/31/2015 Ac (more content not included)... [facility] 05-05-2023 Note HNO ID: [id number] Author: ELIU VILCHIS MA Service: ? Author Type: Aerodynamics Engineer Type: Progress Notes Filed: 05/05/2023 11:47 Note Text: POPULATION HEALTH NAVIGATION OUTREACH Action/I May 05, 2023 Spoke with pt. Pt rescheduled for 6 mo follow up appt on 05/11/23 with PCP. CDM appt needed for: Patient states she totally forgot about her PCP appointment on 05/03 patient states her had a heart procedure that day and it slipped her mind. Route to Navigation Team to assist with rescheduling with PCP. Patient Identified by Name and : YES, via phone Outreach Outcome/Action Spoke to patient / parent / legal guardian: Patient scheduled Did you use a PCP flex slot to schedule this appointment? No Reason for Outreach [facility] Payer: Payor: MEDICARE / Plan: MEDICARE A AND B / Product Type: Medicare / Care Gap Reviewed:: Follow-up appointment Reminder: Reminder note to check Health Maintenance for items below Health Maintenance items due: RSV Vaccine(1 - 1-dose 60+ series) Never done Influenza Vaccine(1) due on 12/31/2022 Covid-19 Vaccine(2022-24 season) due on 12/31/2022 Advance Directive Discussion due on 05/02/2023 Depression Assessment due on 05/02/2023 Navigation Signature: Eliu Vilchis MA May 05, 2023 11:40 AM [facility] 05-05-2023 Note HNO ID: [id number] Author: DAISY FRANKLIN RN Service: ? Author Type: Registered Nurse Type: Progress Notes Filed: 05/05/2023 11:24 Note Text: CDM Telephonic Outreach Provider Action/ -htn, asthma Patient states she totally forgot about her PCP appointment on 05/03 patient states her had a heart procedure that day and it slipped her mind. Route to Navigation Team to assist with rescheduling with PCP. Patient denies any questions/concerns/needs related to their chronic health condition. Reviewed upcoming appointments. Contacted for: Routine Telephonic Outreach Contact made with patient: Yes Patient identified by name and date of . Discussed care with patient Are you experiencing any new or worsening symptoms you need to talk about today? No Disease Specific Do you check your blood pressure at home? No Do you have new or worsening shortness of breath with activity? No Based on bonderite operator, the following disposition is advised: No symptoms or symptoms present, not severe. Routed to: No Action Needed HARVINDER Education Provided this Outreach: No Daisy Franklin RN May 05, 2023 11:22 AM [facility] 04-11-2023 Note Patient Outreach (AM [facility]) MONA JANSEN ([id number]) 1940 F [facility] Date Time Provider Department 04/11/23 DAISY FRANKLIN [facility] [place] During your visit today, we recorded the following information about you: Daisy Franklin RN 04/11/2023 10:17 AM Signed CDM Telephonic Outreach Provider Action/FYI -htn, asthma Patient denies questions/concerns/needs. Reviewed upcoming appointments. Updated health care goals, falls, ADLS and social determinants. Contacted for: Routine Telephonic Outreach Contact made with patient: Yes Patient identified by name and date of . Discussed care with patient Are you experiencing any new or worsening symptoms you need to talk about today? No Disease Specific Do you check your blood pressure at home? No Do you have new or worsening shortness of breath with activity? No Based on bonderite operator, the following disposition is advised: No symptoms or symptoms present, not severe. Routed to: No Action Needed HARVINDER Education Provided this Outreach: No Daisy Franklin RN April 11, 2023 10:12 AM Allergies As of Date: 04/11/2023 Noted Allergy Reaction AUGMENTIN (AMOXICILLIN-POT CLAVUL*05/17/2012 8 - GI Upset GRASS POLLEN 10/09/2013 16 - Unknown IODINE (CONTRAST DYE) 02/01/2005 Comments: hypotension MOLD 10/09/2013 16 - Unknown SODIUM PENTOTHAL (THIOPENTAL) 16 - Unknown TROSPIUM 10/31/2018 14 - Other: See Comments Comments: Leg weakness Date Reviewed: 04/01/2023 Reviewed by: Keily Wong Ma - Fully Assessed Reason for Visit: CDM [Other] Cmt: Community Monitoring Outreach Call Prescriptions as of 04/11/2023 - meloxicam (MOBIC) 15 mg tablet Take 1 tablet by mouth once daily. With food. - cyclobenzaprine (FLEXERIL) 5 mg tablet Take 1 tablet by mouth two times a day as needed. - albuterol HFA (VENTOLIN HFA) 90 mcg/actuation inhaler Inhale 2 Puffs as instructed every 6 hours as needed for wheezing/shortness of breath. as needed - pantoprazole DR (PROTONIX) 40 mg tablet Take 1 tablet by mouth once daily as needed. - lisinopril 2.5 mg tablet Take 1 tablet by mouth once daily. - MEDICAL SUPPLY Tubigrip elastic support bandages to knees bilaterally to be worn daily for bilateral lower extremity edema. - fluticasone (FLONASE ALLERGY RELIEF) 50 mcg/actuation nasal spray Use 1 [place] in each nostril once daily. - BIPAP Formal mask refitting: Try New mask. Change pressure to BiPAP @ 9/6 cm of water with humidification. Mask (per patient preference) optional chin strap (if indicated) , filters, tubing, humidifier and lifetime supplies. - Cholecalciferol, Vitamin D3, 5,000 unit cap Take 1 capsule by mouth once daily. Meds Comments as of 09/08/2022: Takes [employer] [place] defense every day as of winter 201805/10/21 severe interaction: K/antivert September 08, 2022 Denies new medications or medication changes within the last 30 days. Fernanda Urbina RN Problem List As Of Date 04/11/2023 Noted Resolved OVERWEIGHT [E66.9] 11/10/2016 Essential hypertension [I10] Mixed hyperlipidemia [E78.2] GENERAL OSTEOARTHROSIS [M15.9] Swelling, mass, or lump in chest [R22.2] 06/06/2007 02/20/2010 HEMORRHOIDS NOS [K64.9] 07/06/2007 POSTNASAL DRIP [R09.82] 10/18/2007 PSVT (paroxysmal supraventricular tachycardia) *10/08/2013 Bradycardia [R00.1] 10/08/2013 GERD (gastroesophageal reflux disease) [K21.9] Sick sinus syndrome (HCC) [I49.5] 10/23/2013 Syncope and collapse [R55] 11/19/2013 Cardiac pacemaker in situ [Z95.0] 07/03/2014 Vitamin D deficiency [E55.9] 01/31/2015 Acute back pain with sciatica [M54.40] 06/05/2015 05/19/2021 Mild intermittent asthma without complication [*09/03/2015 Morbid obesity due to excess calories (HCC) [E6*09/14/2015 11/10/2016 Post herpetic neuralgia [B02.29] 07/15/2016 Morbid obesity with BMI of 40.0-44.9, adult (HC*11/10/2016 12/24/2016 Bilateral carotid artery stenosis [I65.23] 11/10/2016 Unsteady gait [R26.81] 11/19/2016 Generalized weakness [R53.1] 11/19/2016 Obesity (BMI 35.0-39.9 without comorbidity) [E6*12/24/2016 12/29/2016 Morbid obesity with BMI of 40.0-44.9, adult (HC* Benign paroxysmal vertigo of both ears [H81.13] 07/06/2017 Sepsis due to urinary tract infection (HCC) [A4*11/20/2017 11/26/2017 Hyponatremia [E87.1] 11/21/2017 11/26/2017 Weakness [R53.1] 11/21/2017 11/26/2017 RUPERT (acute kidney injury) (HCC) [N17.9] 11/21/2017 11/26/2017 Acute rhinosinusitis [J01.90] 11/21/2017 11/26/2017 Obesity, Class III, BMI >= 40 [E66.01] 11/21/2017 05/19/2021 Acute asthma exacerbation [J45.901] 11/26/2017 11/26/2017 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*04/01/2018 Status post total right knee replacement [Z96.6*04/01/2018 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.642] 04/01/2018 Lumbar degenerative disc disease [M51.36] 04/01/2018 Posterior tibial tendon dysfunction, left [M76.*04/01/2018 History of DVT (deep v (more content not included)... [facility] 04-11-2023 Note HNO ID: [id number] Author: Daisy Franklin RN Service: ? Author Type: Registered Nurse Type: Progress Notes Filed: 04/11/2023 10:17 AM Note Text: CDM Telephonic Outreach Provider Action/FYI -htn, asthma Patient denies questions/concerns/needs. Reviewed upcoming appointments. Updated health care goals, falls, ADLS and social determinants. Contacted for: Routine Telephonic Outreach Contact made with patient: Yes Patient identified by name and date of . Discussed care with patient Are you experiencing any new or worsening symptoms you need to talk about today? No Disease Specific Do you check your blood pressure at home? No Do you have new or worsening shortness of breath with activity? No Based on bonderite operator, the following disposition is advised: No symptoms or symptoms present, not severe. Routed to: No Action Needed HARVINDER Education Provided this Outreach: No Daisy Franklin RN April 11, 2023 10:12 AM [facility] 04-11-2023 History of Present illness Narrative CD Telephonic Outreach Provider Action/FYI -htn, asthma Patient denies questions/concerns/needs. Reviewed upcoming appointments. Updated health care goals, falls, ADLS and social determinants. Contacted for: Routine Telephonic Outreach Contact made with patient: Yes Patient identified by name and date of . Discussed care with patient Are you experiencing any new or worsening symptoms you need to talk about today? No Disease Specific Do you check your blood pressure at home? No Do you have new or worsening shortness of breath with activity? No Based on bonderite operator, the following disposition is advised: No symptoms or symptoms present, not severe. Routed to: No Action Needed HARVINDER Education Provided this Outreach: Suellen Franklin RN April 11, 2023 10:12 AM documented in this encounter [facility] 04-07-2023 Miscellaneous Notes Reviewed. Daisy Community Outreach Nurse [facility] called and reports the only copy of the results are printed and they are given to the Pt to take home. Called Pt and asked her to bring results with her for her 05/03/[address] Wiseman, she verbalizes agreement. Pt is notified of providers instructions. Pt voices understanding. Evy Roque RN Reviewed and agree. If we can get records, will review them at upcoming OV. Continue current regimen and work on low cholesterol diet. Pt called in asking about her Lipid panel she reports she just had it done at [facility] in [place], called and they didn't have any labs beyond 04/29/22. Called [facility] and they said they didn't have any Lipid panel, they said she may have gotten it done through community outreach. Let a message for the community outreach nurse to fax the labs to Dr Wiseman's office at [phone]. Pt states her HDL was 45 and her LDL was 142. She states she will talk to Dr Wiseman about this, and I reinforced Statin therapy at her May appointment. Let Pt know OTC Co Q10 supplement can help with muscle issues associated with Statin therapy. documented in this encounter [facility] 04-01-2023 Note HNO ID: [id number] Author: Glen Polk, DO Service: ? Author Type: Physician Type: Progress Notes Filed: 04/01/2023 9:06 AM Note Text: 0 [facility] [place] Manoj Nuñez Department of Cardiovascular Medicine SECTION OF REGIONAL CARDIOLOGY 04/01/2023 Mona Jansen is a 82 year old female with a history of SSS, S/P pacemaker insertion, SVT with profound bradycardia / pauses, hypertension, hyperlipidemia, and remote syncope who is for a follow up. HPI: SOCORRO 03/30/22 She has been doing well since last visit other than continued weakness and fatigue. She has been doing better since her bout with COVID and Ecoli. She still has some brain fog but no syncope. She has had some EVANS at times but better. Continues to follow with EP with Dr. Gandara for every 3-month pacer checks checks. She denies chest pain, orthopnea, PND, palpitations, lightheadedness, dizziness, or syncope. The patient swims three days a week. Home blood pressure is done sporadically and in good range. Prior history: 09/21/2021 She continues to have some cough and SOB at times with yellow sputum production. She had COVID-pneumonia and E. coli infection. She had multiple episodes of syncope during presentation of this due to hypotension and possible vasovagal syncope. She was seen by Dr. Humphries and had an echocardiogram on 04/13/2021 that was essentially normal. She was placed on midodrine and asked to increase her fluids. She has not had any further syncope. She is still dealing with her significant illness and post prolonged hospital day. She is off of midodrine now. She has increased fluid intake for now. PT/OT is critical. She fortunately had an unremarkable echo during this event. She will try to wear compression stockings as well. She uses furosemide as needed for worsening leg edema but this has not been a big problem lately. Her EVANS does not appear to be from cardiac. She had a normal BNP and stress MPI 07/2021. Hospital Course 04/14/21 - 05/08/21 Patient was transferred to [facility] for physical and occupational therapy following hospital admission to [facility] from 04/11-04/14 for syncope. She had a complicated recent history. The patient was diagnosed with COVID on 03/25 and her symptoms progressively worsened despite two course of oral steroids. She was found to be hypoxic with ambulation and was admitted to [facility] for further management. During her admission, she was treated with dexamethasone. She was outside the window for the remdesivir. She was found to have e. Coli bacteremia and was treated with antibiotics. She clinically improved and was transferred to [place] for therapy. While at [place], the patient had recurrent syncopal episodes. She was evaluated in the ER, treated with IVF, then later sent out to [facility] and had cardiology evaluation, treated with IVF and started on midodrine. The patient had very slow progress at first due to dizziness but eventually progressed with therapy. She is able to sit up in chair and ambulate with a walker. She still experiences dizziness but it has improved overall. She was started on Lasix for shortness of breath which improved as well. She will follow-up with cardiology and pulmonary. She will also be given a referral to the [facility]. She will be discharged home with home health care: SN,PT,OT 03/18/21 Patient has been feeling well since last appointment but did have some dizziness and came in to office to discuss with the nurse. She was only drinking 2-3 glassess of water a day at the time. On her last visit with Dr. Benavides she was having some increased shortness of breath. She underwent both a pacemaker check and an echocardiogram. The Pacemaker check was normal 07/04/17 and no evidence of SVT or atrial fibrillation per report but they did mention atrial high rates less than a minute duration. The patient was seen 05/09/2018 by her primary care for SOB and CT Chest was ordered. This was negative, however, there was concern for possible blood clot and CT was not done with IV contrast so d-dimer was ordered which came back elevated. VQ scan consistent with low probability of PE. US BLE revealed acute distal DVT to the right lower extremity. She was started on Coumadin and bridging with Lovenox on 05/12/2018. Shortly after, she developed an extensive right arm hematoma requiring transfer to [facility] for further management. She underwent IVC filter placement and required transfusion of 3 units PRBCs. She was then discharged to acute rehab for 2 weeks. PAST MEDICAL HISTORY Diagnosis Date Asthma Seeing Dr. Martins At high risk for falls Bilateral carotid artery stenosis Mild, left worse than right. Diaphragmatic hernia without mention of obstruction or gangrene DVT (deep venous thrombosis) (HCC) 05/2018 Generalized osteoarthrosi (more content not included)... [facility] 04-01-2023 History of Present illness Narrative Images from the original note were not included. 0 [facility] [place] Manoj Nuñez Department of Cardiovascular Medicine SECTION OF REGIONAL CARDIOLOGY 04/01/2023 Mona Jansen is a 82 year old female with a history of SSS, S/P pacemaker insertion, SVT with profound bradycardia / pauses, hypertension, hyperlipidemia, and remote syncope who is for a follow up. HPI: SOCORRO 03/30/22 She has been doing well since last visit other than continued weakness and fatigue. She has been doing better since her bout with COVID and Ecoli. She still has some brain fog but no syncope. She has had some EVANS at times but better. Continues to follow with EP with Dr. Gandara for every 3-month pacer checks checks. She denies chest pain, orthopnea, PND, palpitations, lightheadedness, dizziness, or syncope. The patient swims three days a week. Home blood pressure is done sporadically and in good range. Prior history: 09/21/2021 She continues to have some cough and SOB at times with yellow sputum production. She had COVID-pneumonia and E. coli infection. She had multiple episodes of syncope during presentation of this due to hypotension and possible vasovagal syncope. She was seen by Dr. Humphries and had an echocardiogram on 04/13/2021 that was essentially normal. She was placed on midodrine and asked to increase her fluids. She has not had any further syncope. She is still dealing with her significant illness and post prolonged hospital day. She is off of midodrine now. She has increased fluid intake for now. PT/OT is critical. She fortunately had an unremarkable echo during this event. She will try to wear compression stockings as well. She uses furosemide as needed for worsening leg edema but this has not been a big problem lately. Her EVANS does not appear to be from cardiac. She had a normal BNP and stress MPI 07/2021. Hospital Course 04/14/21 - 05/08/21 Patient was transferred to [facility] for physical and occupational therapy following hospital admission to [facility] from 04/11-04/14 for syncope. She had a complicated recent history. The patient was diagnosed with COVID on 03/25 and her symptoms progressively worsened despite two course of oral steroids. She was found to be hypoxic with ambulation and was admitted to [facility] for further management. During her admission, she was treated with dexamethasone. She was outside the window for the remdesivir. She was found to have e. Coli bacteremia and was treated with antibiotics. She clinically improved and was transferred to [place] for therapy. While at [place], the patient had recurrent syncopal episodes. She was evaluated in the ER, treated with IVF, then later sent out to [facility] and had cardiology evaluation, treated with IVF and started on midodrine. The patient had very slow progress at first due to dizziness but eventually progressed with therapy. She is able to sit up in chair and ambulate with a walker. She still experiences dizziness but it has improved overall. She was started on Lasix for shortness of breath which improved as well. She will follow-up with cardiology and pulmonary. She will also be given a referral to the [facility]. She will be discharged home with home health care: SN,PT,OT 03/18/21 Patient has been feeling well since last appointment but did have some dizziness and came in to office to discuss with the nurse. She was only drinking 2-3 glassess of water a day at the time. On her last visit with Dr. Benavides she was having some increased shortness of breath. She underwent both a pacemaker check and an echocardiogram. The Pacemaker check was normal 07/04/17 and no evidence of SVT or atrial fibrillation per report but they did mention atrial high rates less than a minute duration. The patient was seen 05/09/2018 by her primary care for SOB and CT Chest was ordered. This was negative, however, there was concern for possible blood clot and CT was not done with IV contrast so d-dimer was ordered which came back elevated. VQ scan consistent with low probability of PE. US BLE revealed acute distal DVT to the right lower extremity. She was started on Coumadin and bridging with Lovenox on 05/12/2018. Shortly after, she developed an extensive right arm hematoma requiring transfer to [facility] for further management. She underwent IVC filter placement and required transfusion of 3 units PRBCs. She was then discharged to acute rehab for 2 weeks. PAST MEDICAL HISTORY Diagnosis Date Asthma Seeing Dr. Martins At high risk for falls Bilateral carotid artery stenosis Mild, left worse than right. Diaphragmatic hernia without mention of obstruction or gangrene DVT (deep venous thrombosis) ([facility]) 05/2018 Generalized osteoarthrosis, unspecified site GERD (gastroesophageal reflux disease) Hematoma Dr. Zelaya Hemorrhage of rectum and anus Morbid obesity ([facility]) MONTRELL (obstructive sleep apnea) Other and unspecified hyperlipidemia Overactive bladder Pacemaker Presence of IVC filter Pulmonary embolism ([facility]) Seasonal allergies Dr. Choi SSS (sick sinus syndrome) ([facility]) Seeing Dr. Polk Statin declined SVT (supraventricular tachycardia) Unspecified essential hypertension Urinary incontinence Dr. Serrato Vitamin D deficiency PAST SURGICAL HISTORY Procedure Laterality Date ANESTH,PACEMAKER INSERTION ARTHRP ACETBLR/PROX FEM PROSTC AGRFT/ALGRFT 08/13/2005 Hip replacement, total left ARTHRP KNE CONDYLE&PLATU MEDIAL&LAT COMPARTMENTS 04/05/2005 Knee replacement, total left ARTHRP KNE CONDYLE&PLATU MEDIAL&LAT COMPARTMENTS 01/2006 Knee replacement, total right COLONOSCOPY FLX DX W/COLLJ SPEC WHEN PFRMD 08/03/2007 COLONOSCOPY FLX DX W/COLLJ SPEC WHEN PFRMD 08/03/2007 Colonoscopy COLONOSCOPY FLX DX W/COLLJ SPEC WHEN PFRMD 09/18/2015 Colonoscopy (MAC) ESOPHAGOGASTRODUODENOSCOPY TRANSORAL DIAGNOSTIC 08/24/2011 EGD ESOPHAGOGASTRODUODENOSCOPY TRANSORAL DIAGNOSTIC 09/18/2015 EGD (MAC) IVC FILTER 05/2018 PAST SURGICAL HISTORY OF 10/2013 Pacer placement FAMILY HISTORY Problem Relation Age of Onset Hypertension Mother Heart Mother AR at age 75 Heart Father AR at age 85, sudden Diabetes Sister Pacemaker; ?had mild AR Heart Sister Diabetes Maternal Uncle Parkinson s Disease Maternal Uncle SOCIAL HISTORY: Social History Tobacco Use Smoking status: Never Smokeless tobacco: Never Vaping Use Vaping Use: Never used Substance Use Topics Alcohol use: Yes Comment: ocas-monthly Drug use: No ALLERGIES: Augmentin [Amoxicillin-Pot Clavulanate], Grass Pollen, Iodine [Contrast Dye], Mold, Sodium Pentothal [Thiopental], and Trospium CURRENT MEDICATIONS: ROS: Card: See present history. Pulm: See present history. Gastro: No nausea, vomiting, or diarrhea GenUr: No history of dysuria, frequency or incontinence Endo: Negative for cold or heat intolerance, polyuria or polydipsia. Neuro: no focal weakness, focal sensory loss, headache, visual changes, seizure activity, ataxia, speech/language loss. Musculoskeletal: Negative for joint or muscle pain, back pain, or swelling. Infect: no fevers, chills, rigors or night sweats. Skin: Negative for lesions, rash, and itching. Heme: Negative for prolonged bleeding, bruising easily or swollen nodes. The remainder of the review of systems is negative. BP 122/70 Pulse 82 Wt 112.3 kg (247 lb 9.2 oz) SpO2 97% BMI 42.50 kg/m PHYSICAL EXAMINATION: General appearance: Well appearing, alert, in no acute distress, well-hydrated, well nourished. Lungs: Lungs with rhonchi diffusely Heart: RRR without murmur, gallop, or rubs. No ectopy Abdomen: Normal abdominal exam, Abdomen soft, non-tender. Bowel sounds normal. No masses, organomegaly Extremities: No deformities, 1-2+ edema, skin discoloration, clubbing or cyanosis. Good capillary refill. Musculoskeletal: No joint swelling, deformity, or tenderness Peripheral pulses: Normal Last 3 Encounter BP Readings: Date: BP: 03/01/2019 136/78 02/05/2019 118/60 01/31/2019 110/62 Last 3 Encounter Pulse Readings: Date: Pulse: 03/01/2019 81 02/05/2019 82 01/31/2019 68 Last 3 Encounter Wt Readings: Date: Wt: 03/01/2019 116.6 kg (257 lb) 02/05/2019 114.9 kg (253 lb 3.2 oz) 01/31/2019 115 kg (253 lb 9.6 oz) LABS: Glucose (mg/dL) Date Value 09/09/2022 89 05/20/2021 72 Potassium (mmol/L) Date Value 09/09/2022 4.1 05/20/2021 4.0 Sodium (mmol/L) Date Value 09/09/2022 140 05/20/2021 139 Chloride (mmol/L) Date Value 09/09/2022 102 05/20/2021 101 CO2 (mmol/L) Date Value 09/09/2022 25 05/20/2021 26 Creatinine (mg/dL) Date Value 09/09/2022 0.91 05/20/2021 0.80 BUN (mg/dL) Date Value 09/09/2022 17 05/20/2021 11 Anion Gap (mmol/L) Date Value 09/09/2022 13 05/20/2021 12 Calcium (mg/dL) Date Value 05/20/2021 10.0 Calcium, Total (mg/dL) Date Value 09/09/2022 9.2 Protein, Total (g/dL) Date Value 09/09/2022 7.0 04/14/2021 5.0 Albumin (g/dL) Date Value 09/09/2022 4.1 04/14/2021 2.7 Bilirubin, Total (mg/dL) Date Value 09/09/2022 0.6 04/14/2021 0.5 Alkaline Phosphatase (U/L) Date Value 09/09/2022 49 04/14/2021 37 AST (U/L) Date Value 09/09/2022 19 04/14/2021 19 ALT (U/L) Date Value 09/09/2022 15 04/14/2021 28 Hemoglobin (g/dL) Date Value 09/09/2022 13.6 04/14/2021 10.4 Hematocrit (%) Date Value 09/09/2022 41.0 04/14/2021 31.4 WBC (k/uL) Date Value 09/09/2022 6.57 04/14/2021 9.48 Cholesterol, Total (mg/dL) Date Value 04/29/2022 184 05/29/2020 179 HDL Cholesterol (mg/dL) Date Value 04/29/2022 60 05/29/2020 56 LDL Cholesterol (mg/dL) Date Value 04/29/2022 109 05/29/2020 109 Triglyceride (mg/dL) Date Value 04/29/2022 74 05/29/2020 68 CARDIAC TESTING: MPI 08/04/21 CONCLUSIONS: 1. SPECT Perfusion Study: Normal. 2. There is no scintigraphic evidence for inducible ischemia. 3. No evidence of scarred myocardium. 4. Left ventricle is normal in size. The left ventricle systolic function is normal. 5. This is a low risk scan. Gated Stress FBP LVEF % 72 Echo 04/13/2021: CONCLUSIONS: - Exam indication: syncope - The left ventricle is normal in size. Left ventricular systolic function is normal. EF is 66% and no wall motion abnormalities.(2D biplane) - The right ventricle is normal in size. - The visualized aorta is dilated with a maximal dimension of 4.1 cm. -Limited echo done on Covid positive patient. -Limited subcostal images. Patient could not tolerate pressure from probe. - Exam was compared with the prior echocardiographic exam performed on 06/29/18. 07/14/20 Patient Name: Mona Jansen : 1940 Ordering Provider: Glen Polk Indication: I49.5 Sick sinus syndrome Type of Monitor: Extended Monitoring-Zio Patch Enrollment Dates: 07/14/2020-07/21/2020 Findings Patient had a min HR of 53 bpm, max HR of 164 bpm, and avg HR of 73 bpm. Predominant underlying rhythm was Possible Atrial and Ventricular Pacing. First Degree AV Block was present. 9 Supraventricular Tachycardia runs occurred, the run with the fastest interval lasting 4 beats with a max rate of 164 bpm, the longest lasting 18.5 secs with an avg rate of 102 bpm. Some episodes of Supraventricular Tachycardia may be possible Atrial Tachycardia with variable block. Isolated SVEs were occasional (3.9%, [id number]), SVE Couplets were rare (<1.0%, 337), and SVE Triplets were rare (<1.0%, 10). Isolated VEs were rare (<1.0%, 11), VE Triplets were rare (<1.0%, 1), and no VE Couplets were present. No definite AF No symptom rhythm correlation Glen Polk, DO, FACC, FCCP, FACOI. DUAL CHAMBER PACEMAKER REMOTE EVALUATION: PRESENTING EGM: /VS BATTERY STATUS: Normal with no significant depletion, estimated time remaining to PIETER is 5.5 years COUNTERS SINCE : 11/10/2020 ATRIAL ARRHYTHMIAS: There have been 5 triggered episodes of atrial high rates with no EGMs showing for review, each lasting under 1 minute. Total time <0.1%. VENTRICULAR ARRHYTHMIAS: There have been no ventricular detections. LEAD MEASUREMENTS: Sensing is appropriate. Review of the lead impedance trends are normal. OTHER DIAGNOSTICS: Total V pacing 0.2%. FOLLOW UP: Continue with 3 month remotes and yearly in-clinic visits. Mariella Cat RN Pharmacologic MPI stress test (07/18/2018): CONCLUSIONS: 1. SPECT Perfusion Study: Normal. 2. There is no scintigraphic evidence for inducible ischemia. 3. No evidence of scarred myocardium. 4. Functional capacity N/A (pharmacological). 5. Left ventricle is normal in size. The left ventricle systolic function is hyperdynamic. 6. This is a low risk scan. 1 LVEF % 79 Echocardiogram (06/29/2018): CONCLUSIONS: - Technically difficult exam due to body habitus and suboptimal positioning. - Exam indication: Chest Pain - The left ventricle is normal in size. Left ventricular systolic function is normal. EF = 60 5% (2D biplane) Definity contrast used for endocardial border detection. Visually, the left ventriclar function appears borderline at 55% + or -5%. Normal left ventricular diastolic function. - The right ventricle is normal in size. Right ventricular systolic function is normal. - The visualized aorta is dilated with a maximal dimension of 4.1 cm. - Aortic valve sclerosis. Cannot rule out a possible bicuspid aortic valve. - Mild degenerative changes of the mitral valve. - Exam was compared with the prior echocardiographic exam performed on 09/03/2014. Pacemaker Remote Check (06/01/2018): EVALUATION - PRESENTING EGM: AP-VS - BATTERY STATUS: Normal and shows no significant depletion. - COUNTERS SINCE: 11/22/2017 - ATRIAL ARRHYTHMIAS: There have been 11 triggered episodes of atrial high rates all lasting < 1 minute each with no available EGMs for review. Total time <0.1%. - VENTRICULAR ARRHYTHMIAS: There have been no ventricular detections. - LEAD MEASUREMENTS: Sensing is appropriate. Review of the lead impedance trends are normal. - OTHER DIAGNOSTICS: V pacing <0.2%. - FOLLOW UP: Continue with 3 month remotes and yearly in-clinic visits. ASSESSMENT/PLAN: Dyspnea on exertion - s/p COVID pneumonia with > 3 weeks admit -discharge 05/08/21 - Echo 04/13/21: normal LVEF, no LVDD, no significant valvular abnormalities - Spirometry 03/2014: unremarkable in past - CT Chest 04/10/21 showing COVID pneumonia - Normal Pharm MPI 08/04/21 and 06/2018 - Significant deconditioning s/p prolonged hospital admit - Continue efforts at home exercise S/p Covid Pneumonia and E. Coli bacteremia 03/10/21 - 04/14/21 - 05/08/21 last hospitalization In hospital total of about 6 weeks between [facility] and [facility] Cardiac pacemaker in situ - S/P dual-chamber permanent pacemaker implanted 10/2013 for SSS - Follows with Dr. Gandara and device clinic - Remote q 3 mo and annual with EP SVT (supraventricular tachycardia) - Stable Syncope and collapse - Resolved post-pacemaker implant - Recurrent but due to vasovagal and orthostatic hypotension - continue midodrine for now. Essential hypertension - Good control on lisinopril - Encouraged dietary sodium restriction/DASH diet - Reviewed risks of HTN and principles of treatment - Goal of BP <130/80 Mixed hyperlipidemia - Last lipid panel 06/2018: LDL 128 - Refuses statin - Higher 10 year (10%+) risk of AR Hx of DVT - 05/2018, acute distal RLE DVT - Started warfarin and shortly after developed severe Rt. Arm hematoma, coumadin stopped - S/P IVC filter placement 05/2018 MONTRELL (obstructive sleep apnea) - Back on BIPAP Conclusion: She is doing better since her significant illness and prolonged hospital day. She is off of midodrine now and has had no further syncope or significant lightheaded spells. She has increased fluid intake for now. She fortunately had an unremarkable echo during this event. She no longer wears compression stockings. She stopped using furosemide but lower extremity edema has not been a big problem lately. Her EVANS does not appear to be from cardiac. She had a normal BNP and stress MPI 07/2021. She does not exercise now and with weight challenges and deconditioning this is playing a role also. Patient was advised on following a heart healthy diet such as the AHA or DASH dietary pattern and to get 30 minutes of aerobic exercise five times a week. Thank you for allowing me the privilege of participating in the care of your patient. Please do not hesitate to contact me if there are any questions. Glen Polk DO, FACC, FCCP, FACOI documented in this encounter [facility] 03-23-2023 Miscellaneous Notes Pt notified of both result messages and instructions. Pt verbalizes understanding. Yaquelin Arguello LPN ----- Message from Suze Wiseman MD sent at 03/23/2023 11:28 AM EST ----- Right hip xray shows moderate arthritis without signs of fracture or dislocation. Continue treatment as discussed in office. ----- Message from Suze Wiseman MD sent at 03/23/2023 11:30 AM EST ----- Xray of lumbar spine shows new mild L4 compression deformity compared to CT in 2018. This is possibly related to osteopenia and breakdown over time. Imaging does not specify if this is acute. Arthritis changes also noted. Would recommend she continue with treatment as discussed in office and call with worsening back pain. documented in this encounter [facility] 03-22-2023 Note HNO ID: [id number] Author: Gwen Manning RT(R) Service: Radiology Author Type: Technologist Type: Progress Notes Filed: 03/22/2023 2:46 PM Note Text: Radiology Service Progress Note PATIENT NAME: Mona Jansen DATE OF SERVICE: March 22, 2023 TIME: 2:21 PM PATIENT IDENTITY VERIFICATION COMPLETED USING TWO (2) IDENTIFIERS: Name and Date of confirmed by patient verbally. FALL SCREENING: Has the patient had 2 falls in the last year or 1 fall with injury or currently using an Ambulatory Assistive Device (Walker, Cane, Wheelchair, Crutches, etc.)? Yes, Patient High Risk for Falls What interventions were put in place to prevent falls during this visit? Offered Assistance with Transfers/Clothing and Instructed Patient to Remain Seated (Not on Exam Table) Until Exam PATIENT GENDER DATA: Female. status: : No status: NO. PATIENT RELEVANT IMPLANT DATA REVIEWED: Not Applicable RADIOLOGY DEPARTMENT: General X-ray: Exam(s) Completed: Spine X-Ray(s): Lumbar AP / LAT / L5-S1 Pelvis X-Ray: Pelvis with Hip Right PERIPHERAL IV DATA: Not applicable SIGNED BY: Gwen Manning RT(R) March 22, 2023 2:21 PM [facility] 03-22-2023 Note HNO ID: [id number] Author: Suze Wiseman MD Service: ? Author Type: Physician Type: Progress Notes Filed: 03/22/2023 2:58 PM Note Text: Chief Complaint Patient presents with: Follow Up: Patient slipped and fell in shower 2 weeks ago and has been going to Chiropractor. He recommending imaging d/t pain and difficulty with ambulating. HPI Mona Jansen is a 82 year old female who presents here today for Above Complaints. Patient states that 2 weeks ago she was standing outside of the shower and dropped something in the tub and when she was leaning forward she fell hitting her right hip and side on the edge of the tub. Could not get up on her own, so her son and daughter in law came over to help her up. Patient was down about 15 minutes. Had some pain over right posterior hip the next day without bruising or redness. Treating with ibuprofen, tylenol, ice/heat. Pain is 8/10 today. Described as constant dull/aching pain without radiation down her leg. Has been able to walk with her cane, but feels off balance and has pain over right posterior hip. Had appointment with chiropractor on Tuesday and they tried to adjust her hip, but did not do any imaging. Symptoms worse in the last couple of days. Does not have fall alert device. Does have a cell phone, but did not have it with her. Denies head injury or LOC. Has cane and walker at home she uses for ambulation. Past medical history, appointments, medications, allergies reviewed. Previous Medical History PAST MEDICAL HISTORY Diagnosis Date Asthma Seeing Dr. Martins Bilateral carotid artery stenosis Mild, left worse than right. Diaphragmatic hernia without mention of obstruction or gangrene DVT (deep venous thrombosis) ([facility]) 05/2018 Generalized osteoarthrosis, unspecified site GERD (gastroesophageal reflux disease) Hematoma Dr. Zelaya Hemorrhage of rectum and anus Morbid obesity (HCC) MONTRELL (obstructive sleep apnea) Other and unspecified hyperlipidemia Overactive bladder Pacemaker Presence of IVC filter Pulmonary embolism (HCC) Seasonal allergies Dr. Choi SSS (sick sinus syndrome) ([facility]) Seeing Dr. Polk Statin declined SVT (supraventricular tachycardia) Unspecified essential hypertension Urinary incontinence Dr. Serrato Vitamin D deficiency Previous Surgical History PAST SURGICAL HISTORY Procedure Laterality Date ANESTH,PACEMAKER INSERTION ARTHRP ACETBLR/PROX FEM PROSTC AGRFT/ALGRFT 08/13/2005 Hip replacement, total left ARTHRP KNE CONDYLEANDPLATU MEDIALANDLAT COMPARTMENTS 04/05/2005 Knee replacement, total left ARTHRP KNE CONDYLEANDPLATU MEDIALANDLAT COMPARTMENTS 01/2006 Knee replacement, total right COLONOSCOPY FLX DX W/COLLJ SPEC WHEN PFRMD 08/03/2007 COLONOSCOPY FLX DX W/COLLJ SPEC WHEN PFRMD 08/03/2007 Colonoscopy COLONOSCOPY FLX DX W/COLLJ SPEC WHEN PFRMD 09/18/2015 Colonoscopy (MAC) ESOPHAGOGASTRODUODENOSCOPY TRANSORAL DIAGNOSTIC 08/24/2011 EGD ESOPHAGOGASTRODUODENOSCOPY TRANSORAL DIAGNOSTIC 09/18/2015 EGD (MAC) IVC FILTER 05/2018 PAST SURGICAL HISTORY OF 10/2013 Pacer placement Family History FAMILY HISTORY Problem Relation Age of Onset Hypertension Mother Heart Mother AR at age 75 Heart Father AR at age 85, sudden Diabetes Sister Pacemaker; ?had mild AR Heart Sister Diabetes Maternal Uncle Parkinson?s Disease Maternal Uncle Patient Allergies ALLERGIES Allergen Reactions Augmentin [Amoxicil* GI Upset Grass Pollen Unknown Iodine [Contrast Dy* hypotension Mold Unknown Sodium Pentothal [O* tongue numbness Thiopental Unknown Trospium Other: See Comments Leg weakness Current Medications Current Outpatient Medications on File Prior to Visit Medication Sig albuterol HFA (VENTOLIN HFA) 90 mcg/actuation inhaler Inhale 2 Puffs as instructed every 6 hours as needed for wheezing/shortness of breath. as needed pantoprazole DR (PROTONIX) 40 mg tablet Take 1 tablet by mouth once daily as needed. (Patient taking differently: Take 40 mg by mouth once daily as needed. PRN) lisinopril 2.5 mg tablet Take 1 tablet by mouth once daily. MEDICAL SUPPLY Tubigrip elastic support bandages to knees bilaterally to be worn daily for bilateral lower extremity edema. fluticasone (FLONASE ALLERGY RELIEF) 50 mcg/actuation nasal spray Use 1 [place] in each nostril once daily. BIPAP Formal mask refitting: Try New mask. Change pressure to BiPAP @ 9/6 cm of water with humidification. Mask (per patient preference) optional chin strap (if indicated) , filters, tubing, humidifier and lifetime supplies. Cholecalciferol, Vitamin D3, 5,000 unit cap Take 1 capsule by mouth once daily. No current facility-administered medications on file prior to visit. Social History Social History Tobacco Use Smoking status: Never Smokeless tobacco: Never Vaping Use Vaping Use: Never used Substance Use Topics Alcohol use: Yes C (more content not included)... [facility] 03-22-2023 History of Present illness Narrative Chief Complaint Patient presents with: Follow Up: Patient slipped and fell in shower 2 weeks ago and has been going to Chiropractor. He recommending imaging d/t pain and difficulty with ambulating. HPI Mona Jansen is a 82 year old female who presents here today for Above Complaints. Patient states that 2 weeks ago she was standing outside of the shower and dropped something in the tub and when she was leaning forward she fell hitting her right hip and side on the edge of the tub. Could not get up on her own, so her son and daughter in law came over to help her up. Patient was down about 15 minutes. Had some pain over right posterior hip the next day without bruising or redness. Treating with ibuprofen, tylenol, ice/heat. Pain is 8/10 today. Described as constant dull/aching pain without radiation down her leg. Has been able to walk with her cane, but feels off balance and has pain over right posterior hip. Had appointment with chiropractor on Tuesday and they tried to adjust her hip, but did not do any imaging. Symptoms worse in the last couple of days. Does not have fall alert device. Does have a cell phone, but did not have it with her. Denies head injury or LOC. Has cane and walker at home she uses for ambulation. Past medical history, appointments, medications, allergies reviewed. Previous Medical History PAST MEDICAL HISTORY Diagnosis Date Asthma Seeing Dr. Martins Bilateral carotid artery stenosis Mild, left worse than right. Diaphragmatic hernia without mention of obstruction or gangrene DVT (deep venous thrombosis) ([facility]) 05/2018 Generalized osteoarthrosis, unspecified site GERD (gastroesophageal reflux disease) Hematoma Dr. Zelaya Hemorrhage of rectum and anus Morbid obesity ([facility]) MONTRELL (obstructive sleep apnea) Other and unspecified hyperlipidemia Overactive bladder Pacemaker Presence of IVC filter Pulmonary embolism ([facility]) Seasonal allergies Dr. Choi SSS (sick sinus syndrome) ([facility]) Seeing Dr. Polk Statin declined SVT (supraventricular tachycardia) Unspecified essential hypertension Urinary incontinence Dr. Serrato Vitamin D deficiency Previous Surgical History PAST SURGICAL HISTORY Procedure Laterality Date ANESTH,PACEMAKER INSERTION ARTHRP ACETBLR/PROX FEM PROSTC AGRFT/ALGRFT 08/13/2005 Hip replacement, total left ARTHRP KNE CONDYLE&PLATU MEDIAL&LAT COMPARTMENTS 04/05/2005 Knee replacement, total left ARTHRP KNE CONDYLE&PLATU MEDIAL&LAT COMPARTMENTS 01/2006 Knee replacement, total right COLONOSCOPY FLX DX W/COLLJ SPEC WHEN PFRMD 08/03/2007 COLONOSCOPY FLX DX W/COLLJ SPEC WHEN PFRMD 08/03/2007 Colonoscopy COLONOSCOPY FLX DX W/COLLJ SPEC WHEN PFRMD 09/18/2015 Colonoscopy (MAC) ESOPHAGOGASTRODUODENOSCOPY TRANSORAL DIAGNOSTIC 08/24/2011 EGD ESOPHAGOGASTRODUODENOSCOPY TRANSORAL DIAGNOSTIC 09/18/2015 EGD (MAC) IVC FILTER 05/2018 PAST SURGICAL HISTORY OF 10/2013 Pacer placement Family History FAMILY HISTORY Problem Relation Age of Onset Hypertension Mother Heart Mother AR at age 75 Heart Father AR at age 85, sudden Diabetes Sister Pacemaker; ?had mild AR Heart Sister Diabetes Maternal Uncle Parkinson s Disease Maternal Uncle Patient Allergies ALLERGIES Allergen Reactions Augmentin [Amoxicil* GI Upset Grass Pollen Unknown Iodine [Contrast Dy* hypotension Mold Unknown Sodium Pentothal [O* tongue numbness Thiopental Unknown Trospium Other: See Comments Leg weakness Current Medications Current Outpatient Medications on File Prior to Visit Medication Sig albuterol HFA (VENTOLIN HFA) 90 mcg/actuation inhaler Inhale 2 Puffs as instructed every 6 hours as needed for wheezing/shortness of breath. as needed pantoprazole DR (PROTONIX) 40 mg tablet Take 1 tablet by mouth once daily as needed. (Patient taking differently: Take 40 mg by mouth once daily as needed. PRN) lisinopril 2.5 mg tablet Take 1 tablet by mouth once daily. MEDICAL SUPPLY Tubigrip elastic support bandages to knees bilaterally to be worn daily for bilateral lower extremity edema. fluticasone (FLONASE ALLERGY RELIEF) 50 mcg/actuation nasal spray Use 1 [place] in each nostril once daily. BIPAP Formal mask refitting: Try New mask. Change pressure to BiPAP @ 9/6 cm of water with humidification. Mask (per patient preference) optional chin strap (if indicated) , filters, tubing, humidifier and lifetime supplies. Cholecalciferol, Vitamin D3, 5,000 unit cap Take 1 capsule by mouth once daily. No current facility-administered medications on file prior to visit. Social History Social History Tobacco Use Smoking status: Never Smokeless tobacco: Never Vaping Use Vaping Use: Never used Substance Use Topics Alcohol use: Yes Comment: ocas-monthly Drug use: No Review of Symptoms REVIEW OF SYSTEMS See HPI EXAM: BP 126/66 Pulse 101 Resp 18 Wt 112.4 kg (247 lb 12.8 oz) SpO2 97% BMI 42.53 kg/m General Appearance: Well appearing, alert, in no acute distress, well-hydrated, well nourished.. Skin: Skin color, texture, turgor normal, no suspicious rashes or lesions. Back:Positive for TTP over lumbar spine and left paraspinal muscles. reflexes are 2+ and symmetric, motor and sensory appear to be normal, negative SLR test, no evidence of scoliosis HIP: Location: Right Redness: No. Warmth: No. Range of motion: WNL Tenderness over trochanteric bursa: No Pain with movement: Yes. Health Maintenance List RSV Vaccine(1 - 1-dose 60+ series) Never done Influenza Vaccine(1) due on 12/31/2022 Covid-19 Vaccine(2022-24 season) due on 12/31/2022 Shingrix Vaccine(1 of 2) due on 10/30/2023 Annual PCP Team Chronic Disease Visit due on 01/28/2024 BP Controlled (<130/80) due on 01/28/2024 Diabetes Screening due on 09/09/2025 DTaP,Tdap,Td Vaccine(4 - Td or Tdap) due on 10/26/2028 Bone Density Screening Completed Spirometry Completed Advance Directive Discussion Completed Depression Assessment Completed Pneumococcal Vaccine: 65+ Completed Colorectal Cancer Screening Discontinued ASSESSMENT/PLAN: 1. Acute bilateral low back pain without sciatica - ICD9: 724.2, 338.19, ICD10: M54.50 (primary diagnosis) Obtain imaging of lower back and right hip after fall at home. Will treat with ice, rest, NSAIDs, and muscle relaxer as ordered. F/u with PT. Red flags for re-assessment reviewed with patient in detail. - XR LUMBAR GENERAL 3V AP/LAT/L5-S1 - CONSULT TO PHYSICAL THERAPY 2. Acute hip pain, right - ICD9: 719.45, ICD10: M25.551 See above. - XR HIP GENERAL 3V PELV/AP/LAT RIGHT - CONSULT TO PHYSICAL THERAPY 3. Fall in home, initial encounter - ICD9: E888.9, E849.0, ICD10: W19.XXXA, Y92.009 See above. - CONSULT TO PHYSICAL THERAPY 4. At high risk for falls - ICD9: V15.88, ICD10: Z91.81 Recommended use of walker at home along with PT. Should get fall alert device. Discussed risks of fall at home alone including fracture, intracranial hemorrhage, and . - CONSULT TO PHYSICAL THERAPY Suze Wiseman MD documented in this encounter [facility] 03-07-2023 Note HNO ID: [id number] Author: Daisy Franklin RN Service: ? Author Type: Registered Nurse Type: Progress Notes Filed: 03/07/2023 2:12 PM Note Text: CDM Telephonic Outreach Provider Action/FYI -htn, asthma Patient denies questions/concerns/needs. Reviewed upcoming appointments. Contacted for: Routine Telephonic Outreach Contact made with patient: Yes Patient identified by name and date of . Discussed care with patient Are you experiencing any new or worsening symptoms you need to talk about today? No Disease Specific Do you check your blood pressure at home? No Do you have new or worsening shortness of breath with activity? No Based on bonderite operator, the following disposition is advised: No symptoms or symptoms present, not severe. Routed to: No Action Needed HARVINDER Education Provided this Outreach: Daisy Franklin RN March 07, 2023 2:08 PM [facility] 03-07-2023 History of Present illness Narrative [facility] Telephonic Outreach Provider Action/FYI -htn, asthma Patient denies questions/concerns/needs. Reviewed upcoming appointments. Contacted for: Routine Telephonic Outreach Contact made with patient: Yes Patient identified by name and date of . Discussed care with patient Are you experiencing any new or worsening symptoms you need to talk about today? No Disease Specific Do you check your blood pressure at home? No Do you have new or worsening shortness of breath with activity? No Based on bonderite operator, the following disposition is advised: No symptoms or symptoms present, not severe. Routed to: No Action Needed HARVINDER Education Provided this Outreach: Daisy Franklin RN March 07, 2023 2:08 PM documented in this encounter [facility] 03-07-2023 Note Patient Outreach ([facility]) MONA JANSEN ([id number]) 1940 F [facility] Date Time Provider Department 03/07/23 [place] [facility] [place] your visit today, we recorded the following information about you: Daisy Franklin RN 03/07/2023 2:12 PM Signed [facility] Telephonic Outreach Provider Yashira/JING -htn, asthma Patient denies questions/concerns/needs. Reviewed upcoming appointments. Contacted for: Routine Telephonic Outreach Contact made with patient: Yes Patient identified by name and date of . Discussed care with patient Are you experiencing any new or worsening symptoms you need to talk about today? No Disease Specific Do you check your blood pressure at home? No Do you have new or worsening shortness of breath with activity? No Based on bonderite operator, the following disposition is advised: No symptoms or symptoms present, not severe. Routed to: No Action Needed HARVINDER Education Provided this Outreach: Daisy Franklin RN March 07, 2023 2:08 PM Allergies As of Date: 03/07/2023 Noted Allergy Reaction AUGMENTIN (AMOXICILLIN-POT CLAVUL*05/17/2012 8 - GI Upset GRASS POLLEN 10/09/2013 16 - Unknown IODINE (CONTRAST DYE) 02/01/2005 Comments: hypotension MOLD 10/09/2013 16 - Unknown sodium pentothal [Other] 02/01/2005 Comments: tongue numbness THIOPENTAL 16 - Unknown TROSPIUM 10/31/2018 14 - Other: See Comments Comments: Leg weakness Date Reviewed: 01/27/2023 Reviewed by: Tracey Mtz Cma - Fully Assessed Reason for Visit: CDM [Other] Cmt: Community Monitoring Outreach Call Prescriptions as of 03/07/2023 - albuterol HFA (VENTOLIN HFA) 90 mcg/actuation inhaler Inhale 2 Puffs as instructed every 6 hours as needed for wheezing/shortness of breath. as needed - pantoprazole DR (PROTONIX) 40 mg tablet Take 1 tablet by mouth once daily as needed. - lisinopril 2.5 mg tablet Take 1 tablet by mouth once daily. - MEDICAL SUPPLY Tubigrip elastic support bandages to knees bilaterally to be worn daily for bilateral lower extremity edema. - fluticasone (FLONASE ALLERGY RELIEF) 50 mcg/actuation nasal spray Use 1 [place] in each nostril once daily. - BIPAP Formal mask refitting: Try New mask. Change pressure to BiPAP @ 9/6 cm of water with humidification. Mask (per patient preference) optional chin strap (if indicated) , filters, tubing, humidifier and lifetime supplies. - Cholecalciferol, Vitamin D3, 5,000 unit cap Take 1 capsule by mouth once daily. Meds Comments as of 09/08/2022: Takes Elderberry defense every day as of winter 201805/10/21 severe interaction: K/antivert September 08, 2022 Denies new medications or medication changes within the last 30 days. Fernanda Urbina RN Problem List As Of Date 03/07/2023 Noted Resolved OVERWEIGHT [E66.9] 11/10/2016 Essential hypertension [I10] Mixed hyperlipidemia [E78.2] GENERAL OSTEOARTHROSIS [M15.9] Swelling, mass, or lump in chest [R22.2] 06/06/2007 02/20/2010 HEMORRHOIDS NOS [K64.9] 07/06/2007 POSTNASAL DRIP [R09.82] 10/18/2007 PSVT (paroxysmal supraventricular tachycardia) *10/08/2013 Bradycardia [R00.1] 10/08/2013 GERD (gastroesophageal reflux disease) [K21.9] Sick sinus syndrome (HCC) [I49.5] 10/23/2013 Syncope and collapse [R55] 11/19/2013 Cardiac pacemaker in situ [Z95.0] 07/03/2014 Vitamin D deficiency [E55.9] 01/31/2015 Acute back pain with sciatica [M54.40] 06/05/2015 05/19/2021 Mild intermittent asthma without complication [*09/03/2015 Morbid obesity due to excess calories (HCC) [E6*09/14/2015 11/10/2016 Post herpetic neuralgia [B02.29] 07/15/2016 Morbid obesity with BMI of 40.0-44.9, adult (HC*11/10/2016 12/24/2016 Bilateral carotid artery stenosis [I65.23] 11/10/2016 Unsteady gait [R26.81] 11/19/2016 Generalized weakness [R53.1] 11/19/2016 Obesity (BMI 35.0-39.9 without comorbidity) [E6*12/24/2016 12/29/2016 Morbid obesity with BMI of 40.0-44.9, adult (HC* Benign paroxysmal vertigo of both ears [H81.13] 07/06/2017 Sepsis due to urinary tract infection (HCC) [A4*11/20/2017 11/26/2017 Hyponatremia [E87.1] 11/21/2017 11/26/2017 Weakness [R53.1] 11/21/2017 11/26/2017 RUPERT (acute kidney injury) (HCC) [N17.9] 11/21/2017 11/26/2017 Acute rhinosinusitis [J01.90] 11/21/2017 11/26/2017 Obesity, Class III, BMI >= 40 [E66.01] 11/21/2017 05/19/2021 Acute asthma exacerbation [J45.901] 11/26/2017 11/26/2017 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*04/01/2018 Status post total right knee replacement [Z96.6*04/01/2018 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.642] 04/01/2018 Lumbar degenerative disc disease [M51.36] 04/01/2018 Posterior tibial tendon dysfunction, left [M76.*04/01/2018 History of DVT (deep vein thrombosis) [Z86.718] 05/12/2018 Aftercare [Z51.89] 05/22/2018 Hematoma [T14.8XXA] 05/22/2018 Other pulmonary embolism without acute cor pulm*05/22/2018 05/19/2021 Acute blood loss anemia [D62] 05/03 (more content not included)... [facility] 02-23-2023 Miscellaneous Notes Spoke to the patient. She uses the [employer] for remotes but her tablet . She is waiting for a new tablet. I instructed her to call us if she had any trouble setting up the [employer]. documented in this encounter [facility] 02-10-2023 Note HNO ID: [id number] Author: Daisy Franklin RN Service: ? Author Type: Registered Nurse Type: Progress Notes Filed: 02/10/2023 12:10 PM Note Text: CDM Telephonic Outreach Provider Action/FYI -htn, asthma Patient denies questions/concerns/needs. Reviewed upcoming appointments. Contacted for: Routine Telephonic Outreach Contact made with patient: Yes Patient identified by name and date of . Discussed care with patient Are you experiencing any new or worsening symptoms you need to talk about today? No Disease Specific Do you check your blood pressure at home? Yes, Enter readings: it has been good Do you have new or worsening shortness of breath with activity? No Based on bonderite operator, the following disposition is advised: No symptoms or symptoms present, not severe. Routed to: No Action Needed HARVINDER Education Provided this Outreach: No Daisy Franklin RN February 10, 2023 12:10 PM [facility] 02-10-2023 Note Patient Outreach (AM [facility]) NINATORRESMONA PRASAD ([id number]) 1940 F [place] Date Time Provider Department 02/10/23 DAISY FRANKLIN During your visit today, we recorded the following information about you: Daisy Franklin, RN 02/10/2023 12:10 PM Signed CDM Telephonic Outreach Provider Action/FYI -htn, asthma Patient denies questions/concerns/needs. Reviewed upcoming appointments. Contacted for: Routine Telephonic Outreach Contact made with patient: Yes Patient identified by name and date of . Discussed care with patient Are you experiencing any new or worsening symptoms you need to talk about today? No Disease Specific Do you check your blood pressure at home? Yes, Enter readings: it has been good Do you have new or worsening shortness of breath with activity? No Based on bonderite operator, the following disposition is advised: No symptoms or symptoms present, not severe. Routed to: No Action Needed HARVINDER Education Provided this Outreach: No Daisy Franklin RN February 10, 2023 12:10 PM Allergies As of Date: 02/10/2023 Noted Allergy Reaction AUGMENTIN (AMOXICILLIN-POT CLAVUL*05/17/2012 8 - GI Upset GRASS POLLEN 10/09/2013 16 - Unknown IODINE (CONTRAST DYE) 02/01/2005 Comments: hypotension MOLD 10/09/2013 16 - Unknown sodium pentothal [Other] 02/01/2005 Comments: tongue numbness THIOPENTAL 16 - Unknown TROSPIUM 10/31/2018 14 - Other: See Comments Comments: Leg weakness Date Reviewed: 01/27/2023 Reviewed by: Tracey Mtz Cma - Fully Assessed Reason for Visit: CDM [Other] Cmt: Community Monitoring Outreach Call Prescriptions as of 02/10/2023 - albuterol HFA (VENTOLIN HFA) 90 mcg/actuation inhaler Inhale 2 Puffs as instructed every 6 hours as needed for wheezing/shortness of breath. as needed - BIPAP Formal mask refitting: Try New mask. Change pressure to BiPAP @ 9/6 cm of water with humidification. Mask (per patient preference) optional chin strap (if indicated) , filters, tubing, humidifier and lifetime supplies. - Cholecalciferol, Vitamin D3, 5,000 unit cap Take 1 capsule by mouth once daily. - fluticasone (FLONASE ALLERGY RELIEF) 50 mcg/actuation nasal spray Use 1 [place] in each nostril once daily. - lisinopril 2.5 mg tablet Take 1 tablet by mouth once daily. - MEDICAL SUPPLY Tubigrip elastic support bandages to knees bilaterally to be worn daily for bilateral lower extremity edema. - pantoprazole DR (PROTONIX) 40 mg tablet Take 1 tablet by mouth once daily as needed. Meds Comments as of 09/08/2022: Takes Elderberry defense every day as of winter 201805/10/21 severe interaction: K/sandraert September 08, 2022 Denies new medications or medication changes within the last 30 days. Fernanda Urbina RN Problem List As Of Date 02/10/2023 Noted Resolved OVERWEIGHT [E66.9] 11/10/2016 Essential hypertension [I10] Mixed hyperlipidemia [E78.2] GENERAL OSTEOARTHROSIS [M15.9] Swelling, mass, or lump in chest [R22.2] 06/06/2007 02/20/2010 HEMORRHOIDS NOS [K64.9] 07/06/2007 POSTNASAL DRIP [R09.82] 10/18/2007 PSVT (paroxysmal supraventricular tachycardia) *10/08/2013 Bradycardia [R00.1] 10/08/2013 GERD (gastroesophageal reflux disease) [K21.9] Sick sinus syndrome (HCC) [I49.5] 10/23/2013 Syncope and collapse [R55] 11/19/2013 Cardiac pacemaker in situ [Z95.0] 07/03/2014 Vitamin D deficiency [E55.9] 01/31/2015 Acute back pain with sciatica [M54.40] 06/05/2015 05/19/2021 Mild intermittent asthma without complication [*09/03/2015 Morbid obesity due to excess calories (HCC) [E6*09/14/2015 11/10/2016 Post herpetic neuralgia [B02.29] 07/15/2016 Morbid obesity with BMI of 40.0-44.9, adult (HC*11/10/2016 12/24/2016 Bilateral carotid artery stenosis [I65.23] 11/10/2016 Unsteady gait [R26.81] 11/19/2016 Generalized weakness [R53.1] 11/19/2016 Obesity (BMI 35.0-39.9 without comorbidity) [E6*12/24/2016 12/29/2016 Morbid obesity with BMI of 40.0-44.9, adult (HC* Benign paroxysmal vertigo of both ears [H81.13] 07/06/2017 Sepsis due to urinary tract infection (HCC) [A4*11/20/2017 11/26/2017 Hyponatremia [E87.1] 11/21/2017 11/26/2017 Weakness [R53.1] 11/21/2017 11/26/2017 RUPERT (acute kidney injury) (HCC) [N17.9] 11/21/2017 11/26/2017 Acute rhinosinusitis [J01.90] 11/21/2017 11/26/2017 Obesity, Class III, BMI >= 40 [E66.01] 11/21/2017 05/19/2021 Acute asthma exacerbation [J45.901] 11/26/2017 11/26/2017 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*04/01/2018 Status post total right knee replacement [Z96.6*04/01/2018 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.642] 04/01/2018 Lumbar degenerative disc disease [M51.36] 04/01/2018 Posterior tibial tendon dysfunction, left [M76.*04/01/2018 History of DVT (deep vein thrombosis) [Z86.718] 05/12/2018 Aftercare [Z51.89] 05/22/2018 Hematoma [T14.8XXA] 05/22/2018 Other pulmonary embolism without acute cor pulm*05/22/2018 0 (more content not included)... [facility] 02-10-2023 History of Present illness Narrative CDM Telephonic Outreach Provider Action/FYI -htn, asthma Patient denies questions/concerns/needs. Reviewed upcoming appointments. Contacted for: Routine Telephonic Outreach Contact made with patient: Yes Patient identified by name and date of . Discussed care with patient Are you experiencing any new or worsening symptoms you need to talk about today? No Disease Specific Do you check your blood pressure at home? Yes, Enter readings: it has been good Do you have new or worsening shortness of breath with activity? No Based on bonderite operator, the following disposition is advised: No symptoms or symptoms present, not severe. Routed to: No Action Needed HARVINDER Education Provided this Outreach: No Daisy Franklin RN February 10, 2023 12:10 PM documented in this encounter [facility] 01-27-2023 Note HNO ID: [id number] Author: Chela Méndez APRN.CASTINGS DRAFTER Service: ? Author Type: Nurse Practitioner Type: Progress Notes Filed: 01/27/2023 10:43 AM Note Text: Chief Complaint Patient presents with: Head Congestion Headache HPI Mona Jansen is a 82 year old female who presents here today for Above Complaints.. Pt with head congestion, eye pain, maxillary pressure and dizziness for 3 weeks. Hx of seasonal allergies. States symptoms aren't getting worse, but she hasn't gotten any better. Occasional non productive cough and SOB throughout the day. Was taking lauren but switched to herbal supplements that work better. Denies fevers, CP,ear pain, sore throat. Past medical history, appointments, medications, allergies reviewed. Previous Medical History PAST MEDICAL HISTORY Diagnosis Date Asthma Seeing Dr. Martins Bilateral carotid artery stenosis Mild, left worse than right. Diaphragmatic hernia without mention of obstruction or gangrene DVT (deep venous thrombosis) ([facility]) 05/2018 Generalized osteoarthrosis, unspecified site GERD (gastroesophageal reflux disease) Hematoma Dr. Zelaya Hemorrhage of rectum and anus Morbid obesity ([facility]) MONTRELL (obstructive sleep apnea) Other and unspecified hyperlipidemia Overactive bladder Pacemaker Presence of IVC filter Pulmonary embolism ([facility]) Seasonal allergies Dr. Choi SSS (sick sinus syndrome) ([facility]) Seeing Dr. Polk Statin declined SVT (supraventricular tachycardia) ([facility]) Unspecified essential hypertension Urinary incontinence Dr. Serrato Vitamin D deficiency Previous Surgical History PAST SURGICAL HISTORY Procedure Laterality Date ANESTH,PACEMAKER INSERTION ARTHRP ACETBLR/PROX FEM PROSTC AGRFT/ALGRFT 08/13/2005 Hip replacement, total left ARTHRP KNE CONDYLEANDPLATU MEDIALANDLAT COMPARTMENTS 04/05/2005 Knee replacement, total left ARTHRP KNE CONDYLEANDPLATU MEDIALANDLAT COMPARTMENTS 01/2006 Knee replacement, total right COLONOSCOPY FLX DX W/COLLJ SPEC WHEN PFRMD 08/03/2007 COLONOSCOPY FLX DX W/COLLJ SPEC WHEN PFRMD 08/03/2007 Colonoscopy COLONOSCOPY FLX DX W/COLLJ SPEC WHEN PFRMD 09/18/2015 Colonoscopy (MAC) ESOPHAGOGASTRODUODENOSCOPY TRANSORAL DIAGNOSTIC 08/24/2011 EGD ESOPHAGOGASTRODUODENOSCOPY TRANSORAL DIAGNOSTIC 09/18/2015 EGD (MAC) IVC FILTER 05/2018 PAST SURGICAL HISTORY OF 10/2013 Pacer placement Family History FAMILY HISTORY Problem Relation Age of Onset Hypertension Mother Heart Mother AR at age 75 Heart Father AR at age 85, sudden Diabetes Sister Pacemaker; ?had mild AR Heart Sister Diabetes Maternal Uncle Parkinson?s Disease Maternal Uncle Patient Allergies ALLERGIES Allergen Reactions Augmentin [Amoxicil* GI Upset Grass Pollen Unknown Iodine [Contrast Dy* hypotension Mold Unknown Sodium Pentothal [O* tongue numbness Thiopental Unknown Trospium Other: See Comments Leg weakness Current Medications Current Outpatient Medications on File Prior to Visit Medication Sig albuterol HFA (VENTOLIN HFA) 90 mcg/actuation inhaler Inhale 2 Puffs as instructed every 6 hours as needed for wheezing/shortness of breath. as needed pantoprazole DR (PROTONIX) 40 mg tablet Take 1 tablet by mouth once daily as needed. (Patient taking differently: Take 40 mg by mouth once daily as needed. PRN) mirabegron (MYRBETRIQ) 25 mg Tb24 Take 1 tablet by mouth once daily. lisinopril 2.5 mg tablet Take 1 tablet by mouth once daily. MEDICAL SUPPLY Tubigrip elastic support bandages to knees bilaterally to be worn daily for bilateral lower extremity edema. fluticasone (FLONASE ALLERGY RELIEF) 50 mcg/actuation nasal spray Use 1 [place] in each nostril once daily. BIPAP Formal mask refitting: Try New mask. Change pressure to BiPAP @ 9/6 cm of water with humidification. Mask (per patient preference) optional chin strap (if indicated) , filters, tubing, humidifier and lifetime supplies. Cholecalciferol, Vitamin D3, 5,000 unit cap Take 1 capsule by mouth once daily. No current facility-administered medications on file prior to visit. Social History Social History Tobacco Use Smoking status: Never Smokeless tobacco: Never Vaping Use Vaping Use: Never used Substance Use Topics Alcohol use: Yes Comment: ocas-monthly Drug use: No Review of Symptoms REVIEW OF SYSTEMS SEE HPI EXAM: BP 126/78 Pulse 92 Resp 16 Wt 113.9 kg (251 lb) BMI 43.08 kg/m? General Appearance: Well appearing, alert, in no acute distress, well-hydrated, well nourished.. Skin: Skin color, texture, turgor normal, no suspicious rashes or lesions. Head: Normocephalic, no masses, lesions, tenderness or abnormalities. Eyes: Anicteric sclera. Extraocular movements are intact. Ears: External ears normal, canals clear. Nose/Sinuses: Positive findings: mucosa erythematous and swollen. Oropharynx: Lips, mucosa, and tongue normal, teeth and gums normal, orop (more content not included)... [facility] 01-17-2023 Note Patient Outreach (AM [facility]) MONA JANSEN ([id number]) 1940 F [facility] Date Time Provider Department 01/17/23 [place] [facility] [place] your visit today, we recorded the following information about you: Daisy Franklin RN 01/17/2023 11:45 AM Signed CD Telephonic Outreach Provider Action/FYI -htn, asthma Patient states she still has dizziness when she first wakes up in morning, but feels fine after she is up. Patient thinks it has to do with her allergies and possibly her bipap. Patient denies needing virtualist or PCP appointment. Patient states she will see what happens once weather changes . Patient denies any other questions/concerns/needs. Reviewed upcoming appointments. Contacted for: Routine Telephonic Outreach Contact made with patient: Yes Patient identified by name and date of . Discussed care with patient Are you experiencing any new or worsening symptoms you need to talk about today? No Disease Specific Do you check your blood pressure at home? Yes, Enter readings: 136/70 Do you have new or worsening shortness of breath with activity? No Based on bonderite operator, the following disposition is advised: No symptoms or symptoms present, not severe. Routed to: No Action Needed HARVINDER Education Provided this Outreach: No Daisy Franklin RN January 17, 2023 11:36 AM Allergies As of Date: 01/17/2023 Noted Allergy Reaction AUGMENTIN (AMOXICILLIN-POT CLAVUL*05/17/2012 8 - GI Upset GRASS POLLEN 10/09/2013 16 - Unknown IODINE (CONTRAST DYE) 02/01/2005 Comments: hypotension MOLD 10/09/2013 16 - Unknown sodium pentothal [Other] 02/01/2005 Comments: tongue numbness THIOPENTAL 16 - Unknown TROSPIUM 10/31/2018 14 - Other: See Comments Comments: Leg weakness Date Reviewed: 11/01/2022 Reviewed by: Evelina Ronquillo MA - Fully Assessed Reason for Visit: CDM [Other] Cmt: Community Monitoring Outreach Call Prescriptions as of 03/07/2023 - albuterol HFA (VENTOLIN HFA) 90 mcg/actuation inhaler Inhale 2 Puffs as instructed every 6 hours as needed for wheezing/shortness of breath. as needed - pantoprazole DR (PROTONIX) 40 mg tablet Take 1 tablet by mouth once daily as needed. - lisinopril 2.5 mg tablet Take 1 tablet by mouth once daily. - MEDICAL SUPPLY Tubigrip elastic support bandages to knees bilaterally to be worn daily for bilateral lower extremity edema. - fluticasone (FLONASE ALLERGY RELIEF) 50 mcg/actuation nasal spray Use 1 [place] in each nostril once daily. - BIPAP Formal mask refitting: Try New mask. Change pressure to BiPAP @ 9/6 cm of water with humidification. Mask (per patient preference) optional chin strap (if indicated) , filters, tubing, humidifier and lifetime supplies. - Cholecalciferol, Vitamin D3, 5,000 unit cap Take 1 capsule by mouth once daily. Meds Comments as of 09/08/2022: Takes Elderberry defense every day as of winter 201805/10/21 severe interaction: K/antivert September 08, 2022 Denies new medications or medication changes within the last 30 days. Fernanda Urbina, ADRIANA Problem List As Of Date 01/17/2023 Noted Resolved OVERWEIGHT [E66.9] 11/10/2016 Essential hypertension [I10] Mixed hyperlipidemia [E78.2] GENERAL OSTEOARTHROSIS [M15.9] Swelling, mass, or lump in chest [R22.2] 06/06/2007 02/20/2010 HEMORRHOIDS NOS [K64.9] 07/06/2007 POSTNASAL DRIP [R09.82] 10/18/2007 PSVT (paroxysmal supraventricular tachycardia) *10/08/2013 Bradycardia [R00.1] 10/08/2013 GERD (gastroesophageal reflux disease) [K21.9] Sick sinus syndrome (HCC) [I49.5] 10/23/2013 Syncope and collapse [R55] 11/19/2013 Cardiac pacemaker in situ [Z95.0] 07/03/2014 Vitamin D deficiency [E55.9] 01/31/2015 Acute back pain with sciatica [M54.40] 06/05/2015 05/19/2021 Mild intermittent asthma without complication [*09/03/2015 Morbid obesity due to excess calories (HCC) [E6*09/14/2015 11/10/2016 Post herpetic neuralgia [B02.29] 07/15/2016 Morbid obesity with BMI of 40.0-44.9, adult (HC*11/10/2016 12/24/2016 Bilateral carotid artery stenosis [I65.23] 11/10/2016 Unsteady gait [R26.81] 11/19/2016 Generalized weakness [R53.1] 11/19/2016 Obesity (BMI 35.0-39.9 without comorbidity) [E6*12/24/2016 12/29/2016 Morbid obesity with BMI of 40.0-44.9, adult (HC* Benign paroxysmal vertigo of both ears [H81.13] 07/06/2017 Sepsis due to urinary tract infection (HCC) [A4*11/20/2017 11/26/2017 Hyponatremia [E87.1] 11/21/2017 11/26/2017 Weakness [R53.1] 11/21/2017 11/26/2017 RUPERT (acute kidney injury) (HCC) [N17.9] 11/21/2017 11/26/2017 Acute rhinosinusitis [J01.90] 11/21/2017 11/26/2017 Obesity, Class III, BMI >= 40 [E66.01] 11/21/2017 05/19/2021 Acute asthma exacerbation [J45.901] 11/26/2017 11/26/2017 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*04/01/2018 Status post total right knee replacement [Z96.6*04/01/2018 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.642] 04/01/2018 Lum (more content not included)... [facility] 01-17-2023 Note HNO ID: [id number] Author: Daisy Franklin RN Service: ? Author Type: Registered Nurse Type: Progress Notes Filed: 01/17/2023 11:45 AM Note Text: CDM Telephonic Outreach Provider Action/JING -htn, asthma Patient states she still has dizziness when she first wakes up in morning, but feels fine after she is up. Patient thinks it has to do with her allergies and possibly her bipap. Patient denies needing virtualist or PCP appointment. Patient states she will see what happens once weather changes . Patient denies any other questions/concerns/needs. Reviewed upcoming appointments. Contacted for: Routine Telephonic Outreach Contact made with patient: Yes Patient identified by name and date of . Discussed care with patient Are you experiencing any new or worsening symptoms you need to talk about today? No Disease Specific Do you check your blood pressure at home? Yes, Enter readings: 136/70 Do you have new or worsening shortness of breath with activity? No Based on bonderite operator, the following disposition is advised: No symptoms or symptoms present, not severe. Routed to: No Action Needed HARVINDER Education Provided this Outreach: No Daisy Franklin RN January 17, 2023 11:36 AM [facility] 01-17-2023 History of Present illness Narrative [facility] Telephonic Outreach Provider Yashira/JING -htn, asthma Patient states she still has dizziness when she first wakes up in morning, but feels fine after she is up. Patient thinks it has to do with her allergies and possibly her bipap. Patient denies needing virtualist or PCP appointment. Patient states she will see what happens once weather changes . Patient denies any other questions/concerns/needs. Reviewed upcoming appointments. Contacted for: Routine Telephonic Outreach Contact made with patient: Yes Patient identified by name and date of . Discussed care with patient Are you experiencing any new or worsening symptoms you need to talk about today? No Disease Specific Do you check your blood pressure at home? Yes, Enter readings: 136/70 Do you have new or worsening shortness of breath with activity? No Based on bonderite operator, the following disposition is advised: No symptoms or symptoms present, not severe. Routed to: No Action Needed HARVINDER Education Provided this Outreach: No Daisy Franklin RN January 17, 2023 11:36 AM documented in this encounter [facility] 12-20-2022 Note HNO ID: [id number] Author: Daisy Franklin RN Service: ? Author Type: Registered Nurse Type: Progress Notes Filed: 12/20/2022 12:28 PM Note Text: CDM Telephonic Outreach Provider Action/FYI -htn, asthma Patient denies questions/concerns/needs. Reviewed upcoming appointments. Contacted for: Routine Telephonic Outreach Contact made with patient: Yes Patient identified by name and date of . Discussed care with patient Are you experiencing any new or worsening symptoms you need to talk about today? No Disease Specific Do you check your blood pressure at home? Yes, Enter readings: 140/62 Do you have new or worsening shortness of breath with activity? No Based on bonderite operator, the following disposition is advised: No symptoms or symptoms present, not severe. Routed to: No Action Needed HARVINDER Education Provided this Outreach: No Daisy Franklin RN December 20, 2022 12:20 PM [facility] 12-20-2022 Note Patient Outreach (AM [facility]) MONA JANSEN ([id number]) 1940 F [place] Date Time Provider Department 12/20/22 DAISY FRANKLING During your visit today, we recorded the following information about you: Daisy Franklin RN 12/20/2022 12:28 PM Signed CDM Telephonic Outreach Provider Action/FYI -htn, asthma Patient denies questions/concerns/needs. Reviewed upcoming appointments. Contacted for: Routine Telephonic Outreach Contact made with patient: Yes Patient identified by name and date of . Discussed care with patient Are you experiencing any new or worsening symptoms you need to talk about today? No Disease Specific Do you check your blood pressure at home? Yes, Enter readings: 140/62 Do you have new or worsening shortness of breath with activity? No Based on bonderite operator, the following disposition is advised: No symptoms or symptoms present, not severe. Routed to: No Action Needed HARVINDER Education Provided this Outreach: No Daisy Franklin RN December 20, 2022 12:20 PM Allergies As of Date: 12/20/2022 Noted Allergy Reaction AUGMENTIN (AMOXICILLIN-POT CLAVUL*05/17/2012 8 - GI Upset GRASS POLLEN 10/09/2013 16 - Unknown IODINE (CONTRAST DYE) 02/01/2005 Comments: hypotension MOLD 10/09/2013 16 - Unknown sodium pentothal [Other] 02/01/2005 Comments: tongue numbness THIOPENTAL 16 - Unknown TROSPIUM 10/31/2018 14 - Other: See Comments Comments: Leg weakness Date Reviewed: 11/01/2022 Reviewed by: Evelina Ronquillo MA - Fully Assessed Reason for Visit: Community Monitoring Outreach [Other] Cmt: CDM follow up Prescriptions as of 12/20/2022 - albuterol HFA (VENTOLIN HFA) 90 mcg/actuation inhaler Inhale 2 Puffs as instructed every 6 hours as needed for wheezing/shortness of breath. as needed - pantoprazole DR (PROTONIX) 40 mg tablet Take 1 tablet by mouth once daily as needed. - mirabegron (MYRBETRIQ) 25 mg Tb24 Take 1 tablet by mouth once daily. - lisinopril 2.5 mg tablet Take 1 tablet by mouth once daily. - MEDICAL SUPPLY Tubigrip elastic support bandages to knees bilaterally to be worn daily for bilateral lower extremity edema. - fluticasone (FLONASE ALLERGY RELIEF) 50 mcg/actuation nasal spray Use 1 [place] in each nostril once daily. - BIPAP Formal mask refitting: Try New mask. Change pressure to BiPAP @ 9/6 cm of water with humidification. Mask (per patient preference) optional chin strap (if indicated) , filters, tubing, humidifier and lifetime supplies. - Cholecalciferol, Vitamin D3, 5,000 unit cap Take 1 capsule by mouth once daily. Meds Comments as of 09/08/2022: Takes Elderberry defense every day as of winter 201805/10/21 severe interaction: K/antivert September 08, 2022 Denies new medications or medication changes within the last 30 days. Fernanda Urbina RN Problem List As Of Date 12/20/2022 Noted Resolved OVERWEIGHT [E66.9] 11/10/2016 Essential hypertension [I10] Mixed hyperlipidemia [E78.2] GENERAL OSTEOARTHROSIS [M15.9] Swelling, mass, or lump in chest [R22.2] 06/06/2007 02/20/2010 HEMORRHOIDS NOS [K64.9] 07/06/2007 POSTNASAL DRIP [R09.82] 10/18/2007 PSVT (paroxysmal supraventricular tachycardia) *10/08/2013 Bradycardia [R00.1] 10/08/2013 GERD (gastroesophageal reflux disease) [K21.9] Sick sinus syndrome (HCC) [I49.5] 10/23/2013 Syncope and collapse [R55] 11/19/2013 Cardiac pacemaker in situ [Z95.0] 07/03/2014 Vitamin D deficiency [E55.9] 01/31/2015 Acute back pain with sciatica [M54.40] 06/05/2015 05/19/2021 Mild intermittent asthma without complication [*09/03/2015 Morbid obesity due to excess calories (HCC) [E6*09/14/2015 11/10/2016 Post herpetic neuralgia [B02.29] 07/15/2016 Morbid obesity with BMI of 40.0-44.9, adult (HC*11/10/2016 12/24/2016 Bilateral carotid artery stenosis [I65.23] 11/10/2016 Unsteady gait [R26.81] 11/19/2016 Generalized weakness [R53.1] 11/19/2016 Obesity (BMI 35.0-39.9 without comorbidity) [E6*12/24/2016 12/29/2016 Morbid obesity with BMI of 40.0-44.9, adult (HC* Benign paroxysmal vertigo of both ears [H81.13] 07/06/2017 Sepsis due to urinary tract infection (HCC) [A4*11/20/2017 11/26/2017 Hyponatremia [E87.1] 11/21/2017 11/26/2017 Weakness [R53.1] 11/21/2017 11/26/2017 RUPERT (acute kidney injury) (HCC) [N17.9] 11/21/2017 11/26/2017 Acute rhinosinusitis [J01.90] 11/21/2017 11/26/2017 Obesity, Class III, BMI >= 40 [E66.01] 11/21/2017 05/19/2021 Acute asthma exacerbation [J45.901] 11/26/2017 11/26/2017 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 [facility] 12-20-2022 History of Present illness Narrative CDM Telephonic Outreach Provider Action/FYI -htn, asthma Patient denies questions/concerns/needs. Reviewed upcoming appointments. Contacted for: Routine Telephonic Outreach Contact made with patient: Yes Patient identified by name and date of . Discussed care with patient Are you experiencing any new or worsening symptoms you need to talk about today? No Disease Specific Do you check your blood pressure at home? Yes, Enter readings: 140/62 Do you have new or worsening shortness of breath with activity? No Based on bonderite operator, the following disposition is advised: No symptoms or symptoms present, not severe. Routed to: No Action Needed HARVINDER Education Provided this Outreach: No Daisy Franklin RN December 20, 2022 12:20 PM documented in this encounter [facility] 11-22-2022 Note HNO ID: [id number] Author: Daisy Franklin RN Service: ? Author Type: Registered Nurse Type: Progress Notes Filed: 11/22/2022 3:47 PM Note Text: CDM Telephonic Outreach Provider Action/FYI Opened in eror [facility] 11-22-2022 Note HNO ID: [id number] Author: Daisy Franklin RN Service: ? Author Type: Registered Nurse Type: Progress Notes Filed: 11/22/2022 3:45 PM Note Text: CDM Telephonic Outreach Provider Action/FYI -htn, asthma Patient states she is still having some dizziness when she first gets up in the morning. Patient states her providers are aware, and patient thinks it has to do with her BiPAP makes my head feel dizzy. I have tried nasal spray and numerous masks and changed the humidity level and nothing helps . Patient states she gets up slow and is fine once she is up. Patient denies any other questions/concerns/needs. Reviewed upcoming appointments. Contacted for: Routine Telephonic Outreach Contact made with patient: Yes Patient identified by name and date of . Discussed care with patient Are you experiencing any new or worsening symptoms you need to talk about today? No Disease Specific Do you check your blood pressure at home? Yes, Enter readings: 138/62 Do you have new or worsening shortness of breath with activity? No Based on bonderite operator, the following disposition is advised: No symptoms or symptoms present, not severe. Routed to: No Action Needed HARVINDER Education Provided this Outreach: No Daisy Franklin RN November 22, 2022 3:40 PM [facility] 11-22-2022 Note Patient Outreach (AM [facility]) KALYANIMONA Self ([id number]) 1940 F [place] Date Time Provider Department 11/22/22 DAISY FRANKLIN During your visit today, we recorded the following information about you: Daisy Franklin, RN 11/22/2022 3:45 PM Signed CDM Telephonic Outreach Provider Action/FYI -htn, asthma Patient states she is still having some dizziness when she first gets up in the morning. Patient states her providers are aware, and patient thinks it has to do with her BiPAP makes my head feel dizzy. I have tried nasal spray and numerous masks and changed the humidity level and nothing helps . Patient states she gets up slow and is fine once she is up. Patient denies any other questions/concerns/needs. Reviewed upcoming appointments. Contacted for: Routine Telephonic Outreach Contact made with patient: Yes Patient identified by name and date of . Discussed care with patient Are you experiencing any new or worsening symptoms you need to talk about today? No Disease Specific Do you check your blood pressure at home? Yes, Enter readings: 138/62 Do you have new or worsening shortness of breath with activity? No Based on bonderite operator, the following disposition is advised: No symptoms or symptoms present, not severe. Routed to: No Action Needed HARVINDER Education Provided this Outreach: No Daisy Franklin RN November 22, 2022 3:40 PM Allergies As of Date: 11/22/2022 Noted Allergy Reaction AUGMENTIN (AMOXICILLIN-POT CLAVUL*05/17/2012 8 - GI Upset GRASS POLLEN 10/09/2013 16 - Unknown IODINE (CONTRAST DYE) 02/01/2005 Comments: hypotension MOLD 10/09/2013 16 - Unknown sodium pentothal [Other] 02/01/2005 Comments: tongue numbness THIOPENTAL 16 - Unknown TROSPIUM 10/31/2018 14 - Other: See Comments Comments: Leg weakness Date Reviewed: 11/01/2022 Reviewed by: Evelina Ronquillo MA - Fully Assessed Reason for Visit: Community Monitoring Outreach [Other] Cmt: CDM follow up Prescriptions as of 11/22/2022 - albuterol HFA (VENTOLIN HFA) 90 mcg/actuation inhaler Inhale 2 Puffs as instructed every 6 hours as needed for wheezing/shortness of breath. as needed - pantoprazole DR (PROTONIX) 40 mg tablet Take 1 tablet by mouth once daily as needed. - mirabegron (MYRBETRIQ) 25 mg Tb24 Take 1 tablet by mouth once daily. - lisinopril 2.5 mg tablet Take 1 tablet by mouth once daily. - MEDICAL SUPPLY Tubigrip elastic support bandages to knees bilaterally to be worn daily for bilateral lower extremity edema. - fluticasone (FLONASE ALLERGY RELIEF) 50 mcg/actuation nasal spray Use 1 [place] in each nostril once daily. - BIPAP Formal mask refitting: Try New mask. Change pressure to BiPAP @ 9/6 cm of water with humidification. Mask (per patient preference) optional chin strap (if indicated) , filters, tubing, humidifier and lifetime supplies. - Cholecalciferol, Vitamin D3, 5,000 unit cap Take 1 capsule by mouth once daily. Meds Comments as of 09/08/2022: Takes [employer] [place] defense every day as of winter 201805/10/21 severe interaction: K/antivert September 08, 2022 Denies new medications or medication changes within the last 30 days. Fernanda Urbina RN Problem List As Of Date 11/22/2022 Noted Resolved OVERWEIGHT [E66.9] 11/10/2016 Essential hypertension [I10] Mixed hyperlipidemia [E78.2] GENERAL OSTEOARTHROSIS [M15.9] Swelling, mass, or lump in chest [R22.2] 06/06/2007 02/20/2010 HEMORRHOIDS NOS [K64.9] 07/06/2007 POSTNASAL DRIP [R09.82] 10/18/2007 PSVT (paroxysmal supraventricular tachycardia) *10/08/2013 Bradycardia [R00.1] 10/08/2013 GERD (gastroesophageal reflux disease) [K21.9] Sick sinus syndrome (HCC) [I49.5] 10/23/2013 Syncope and collapse [R55] 11/19/2013 Cardiac pacemaker in situ [Z95.0] 07/03/2014 Vitamin D deficiency [E55.9] 01/31/2015 Acute back pain with sciatica [M54.40] 06/05/2015 05/19/2021 Mild intermittent asthma without complication [*09/03/2015 Morbid obesity due to excess calories (HCC) [E6*09/14/2015 11/10/2016 Post herpetic neuralgia [B02.29] 07/15/2016 Morbid obesity with BMI of 40.0-44.9, adult (HC*11/10/2016 12/24/2016 Bilateral carotid artery stenosis [I65.23] 11/10/2016 Unsteady gait [R26.81] 11/19/2016 Generalized weakness [R53.1] 11/19/2016 Obesity (BMI 35.0-39.9 without comorbidity) [E6*12/24/2016 12/29/2016 Morbid obesity with BMI of 40.0-44.9, adult (HC* Benign paroxysmal vertigo of both ears [H81.13] 07/06/2017 Sepsis due to urinary tract infection (HCC) [A4*11/20/2017 11/26/2017 Hyponatremia [E87.1] 11/21/2017 11/26/2017 Weakness [R53.1] 11/21/2017 11/26/2017 RUPERT (acute kidney injury) (HCC) [N17.9] 11/21/2017 11/26/2017 Acute rhinosinusitis [J01.90] 11/21/2017 11/26/2017 Obesity, Class III, BMI >= 40 [E66.01] 11/21/2017 05/19/2021 Acute asthma exacerbation [J45.901] 11/26/2017 11/26/2017 Status post total left knee replacement [Z96.6 (more content not included)... [facility] 11-01-2022 Note HNO ID: [id number] Author: Cabrera Gandara MD Service: ? Author Type: Physician Type: Progress Notes Filed: 11/01/2022 9:10 AM Note Text: EP STAFF NOTE - Virtual Visit: Please note: This note has been produced using speech recognition software and may contain errors related to that system including grammar, punctuation, spelling, gender and words and phrases that may be inappropriate Consultation requested by Dr. Polk for an opinion regarding management of a previously placed PPM PE: Vitals: BP 122/70 Pulse 79 Ht 162.6 cm (5' 4 ) Wt 116.1 kg (256 lb) SpO2 99% BMI 43.94 kg/m? General: Overweight. walks slowly with cane, EVANS. Lungs: Unlabored Heart: RRR Extremities: 1+ peripheral edema L>R. DEVICE CHECK: AT events: remote -2022: PRESENTING EGM: /VS BATTERY STATUS: Estimated time remaining to PIETER is 4 years COUNTERS SINCE: 06/02/22 ATRIAL ARRHYTHMIAS: There were no atrial detections. VENTRICULAR ARRHYTHMIAS: There have been no ventricular detections. LEAD MEASUREMENTS: Sensing is appropriate. Review of the lead impedance trends are normal. OTHER DIAGNOSTICS: RV pacing 0.7%. FOLLOW UP: Continue q3 month remote transmissions and yearly in-clinic interrogations. Cabrera Tapia RN Today: PRESENTS FOR: Appt with Dr. Gandara PRESENTING EGM: AP//VS UNDERLYING RHYTHM: Sinus rhythm BATTERY STATUS: Estimated time remaining to PIETER is 3.5 years (1.5-5 years). COUNTERS SINCE 04/05/22: ATRIAL ARRHYTHMIAS: There were 16 short atrial detections, longest lasting 1.5 minutes. 2 available limited EGMs suggest 1:1 tachycardia. AF burden <0.1%. VENTRICULAR ARRHYTHMIAS: There have been no ventricular detections since the last evaluation. LEAD MEASUREMENTS: Capture and sensing are appropriate. The pacing outputs maintain safety margin. Review of the RA lead impedance trends are normal. RV lead impedance trend shows gradual upward trend, measuring ~500ohms April 2022, measuring 700ohms today. IMPLANT SITE/ SYMPTOMS: The incision and pocket are pain-free, well healed and without signs of erosion or infection. OTHER DIAGNOSTICS: RA pacing 33.3%, Total V pacing 0.6%. PROGRAMMING CHANGES MADE TODAY: none FOLLOW UP: Continue with every 3 month remote transmissions and annual in-clinic visits. Marina Stout RN PROBLEM LIST: persistent dyspnea on exertion with mild activity despite unremarkable workup in the past. lower extremity edema SSS, S/P pacemaker insertion 2013 - followed by Dr. Benavides SVT hypertension hyperlipidemia The patient was seen 05/09/2018 by her primary care for SOB and CT Chest was ordered. This was negative, however, there was concern for possible blood clot and CT was not done with IV contrast so d-dimer was ordered which came back elevated. VQ scan consistent with low probability of PE. US BLE revealed acute distal DVT to the right lower extremity. She was started on Coumadin and bridging with Lovenox on 05/12/2018. Shortly after, she developed an extensive right arm hematoma requiring transfer to [facility] for further management. She underwent IVC filter placement and required transfusion of 3 units PRBCs. She was then discharged to acute rehab for 2 weeks. No AC? TTE : - The left ventricle is normal in size. Left ventricular systolic function is normal. EF = 60 ? 5% (2D biplane) Definity contrast used for endocardial border detection. Visually, the left ventriclar function appears borderline at 55% plus or -5%. Normal left ventricular diastolic function. - The right ventricle is normal in size. Right ventricular systolic function is normal. - The visualized aorta is dilated with a maximal dimension of 4.1 cm. - Aortic valve sclerosis. Cannot rule out a possible bicuspid aortic valve. - Mild degenerative changes of the mitral valve. Nuclear stress : 1. SPECT Perfusion Study: Normal. 2. There is no scintigraphic evidence for inducible ischemia. 3. No evidence of scarred myocardium. 4. Functional capacity N/A (pharmacological). 5. Left ventricle is normal in size. The left ventricle systolic function is hyperdynamic. 6. This is a low risk scan. 1 LVEF % 79 Has IVC filter - not clear if this should be removed / candidacy for long-term AC. Recommended she consider an evaluation by vascular medicine at [facility] to further clarify long-term management - she declined. IMPRESSION: 82 y/o with SND s/p DDD-PPM 2013. She was previously followed by Dr. Benavides. Referred to the EP clinic at [place] to establish PPM care by Dr. Polk. During the initial evaluation - her biggest complaints was EVANS. There were no findings on the PPM check to suggests an arrhythmogenic etiology. Rate histograms were appropriate. stress and TTE 2019 unremarkable. Has pulmonary follow up to assess for additional etiologies. No signs of chronic pulmonary embol (more content not included)... [facility] 11-01-2022 Miscellaneous Notes Pt called and is notified of providers results and instructions. Pt voices understanding. Nely Tolbert RN Urine culture positive for e coli. Recommend treatment with macrobid x 7 days and call with consistent/persistent urinary symptoms. documented in this encounter [facility] 11-01-2022 History of Present illness Narrative Images from the original note were not included. EP STAFF NOTE - Virtual Visit: Please note: This note has been produced using speech recognition software and may contain errors related to that system including grammar, punctuation, spelling, gender and words and phrases that may be inappropriate Consultation requested by Dr. Polk for an opinion regarding management of a previously placed PPM PE: Vitals: BP 122/70 Pulse 79 Ht 162.6 cm (5' 4 ) Wt 116.1 kg (256 lb) SpO2 99% BMI 43.94 kg/m General: Overweight. walks slowly with cane, EVANS. Lungs: Unlabored Heart: RRR Extremities: 1+ peripheral edema L>R. DEVICE CHECK: AT events: remote : PRESENTING EGM: /VS BATTERY STATUS: Estimated time remaining to PIETER is 4 years COUNTERS SINCE: 06/02/22 ATRIAL ARRHYTHMIAS: There were no atrial detections. VENTRICULAR ARRHYTHMIAS: There have been no ventricular detections. LEAD MEASUREMENTS: Sensing is appropriate. Review of the lead impedance trends are normal. OTHER DIAGNOSTICS: RV pacing 0.7%. FOLLOW UP: Continue q3 month remote transmissions and yearly in-clinic interrogations. Cabrera Tapia RN Today: PRESENTS FOR: Appt with Dr. Gandara PRESENTING EGM: AP//VS UNDERLYING RHYTHM: Sinus rhythm BATTERY STATUS: Estimated time remaining to PIETER is 3.5 years (1.5-5 years). COUNTERS SINCE 04/05/22: ATRIAL ARRHYTHMIAS: There were 16 short atrial detections, longest lasting 1.5 minutes. 2 available limited EGMs suggest 1:1 tachycardia. AF burden <0.1%. VENTRICULAR ARRHYTHMIAS: There have been no ventricular detections since the last evaluation. LEAD MEASUREMENTS: Capture and sensing are appropriate. The pacing outputs maintain safety margin. Review of the RA lead impedance trends are normal. RV lead impedance trend shows gradual upward trend, measuring ~500ohms April 2022, measuring 700ohms today. IMPLANT SITE/ SYMPTOMS: The incision and pocket are pain-free, well healed and without signs of erosion or infection. OTHER DIAGNOSTICS: RA pacing 33.3%, Total V pacing 0.6%. PROGRAMMING CHANGES MADE TODAY: none FOLLOW UP: Continue with every 3 month remote transmissions and annual in-clinic visits. Marina Stout RN PROBLEM LIST: persistent dyspnea on exertion with mild activity despite unremarkable workup in the past. lower extremity edema SSS, S/P pacemaker insertion 2013 - followed by Dr. Benavides SVT hypertension hyperlipidemia The patient was seen 05/09/2018 by her primary care for SOB and CT Chest was ordered. This was negative, however, there was concern for possible blood clot and CT was not done with IV contrast so d-dimer was ordered which came back elevated. VQ scan consistent with low probability of PE. US BLE revealed acute distal DVT to the right lower extremity. She was started on Coumadin and bridging with Lovenox on 05/12/2018. Shortly after, she developed an extensive right arm hematoma requiring transfer to [facility] for further management. She underwent IVC filter placement and required transfusion of 3 units PRBCs. She was then discharged to acute rehab for 2 weeks. No AC? TTE : - The left ventricle is normal in size. Left ventricular systolic function is normal. EF = 60 5% (2D biplane) Definity contrast used for endocardial border detection. Visually, the left ventriclar function appears borderline at 55% plus or -5%. Normal left ventricular diastolic function. - The right ventricle is normal in size. Right ventricular systolic function is normal. - The visualized aorta is dilated with a maximal dimension of 4.1 cm. - Aortic valve sclerosis. Cannot rule out a possible bicuspid aortic valve. - Mild degenerative changes of the mitral valve. Nuclear stress : 1. SPECT Perfusion Study: Normal. 2. There is no scintigraphic evidence for inducible ischemia. 3. No evidence of scarred myocardium. 4. Functional capacity N/A (pharmacological). 5. Left ventricle is normal in size. The left ventricle systolic function is hyperdynamic. 6. This is a low risk scan. 1 LVEF % 79 Has IVC filter - not clear if this should be removed / candidacy for long-term AC. Recommended she consider an evaluation by vascular medicine at [facility] main to further clarify long-term management - she declined. IMPRESSION: 82 y/o with SND s/p DDD-PPM 2013. She was previously followed by Dr. Benavides. Referred to the EP clinic at [place] to establish PPM care by Dr. Polk. During the initial evaluation - her biggest complaints was EVANS. There were no findings on the PPM check to suggests an arrhythmogenic etiology. Rate histograms were appropriate. stress and TTE 2018 unremarkable. Has pulmonary follow up to assess for additional etiologies. No signs of chronic pulmonary embolic disease on V/Q and CT. Last seen by me via VV 2019. Follow with Dr. Polk - last visit Presents for follow up. Has been compliant with remotes. PPM is unremarkable. 33% RA pacing. 0 RV pacing. Rare AT events. Notices occasional palpitations - not overly bothersome. Since last seen stress and echo updated: TTE : - The left ventricle is normal in size. Left ventricular systolic function is normal. EF is 66% and no wall motion abnormalities.(2D biplane) - The right ventricle is normal in size. - The visualized aorta is dilated with a maximal dimension of 4.1 cm. -Limited echo done on Covid positive patient. -Limited subcostal images. Patient could not tolerate pressure from probe. - Exam was compared with the prior echocardiographic exam performed on 06/29/18. stress : CONCLUSIONS: 1. SPECT Perfusion Study: Normal. 2. There is no scintigraphic evidence for inducible ischemia. 3. No evidence of scarred myocardium. 4. Left ventricle is normal in size. The left ventricle systolic function is normal. 5. This is a low risk scan. Gated Stress FBP LVEF % 72 PLAN: 1. Continue remote PPM checks q 3 months 2. Annual EP visit with device checks. 3. Has follow up with Dr. Polk This note was created with electronic dictation and errors in syntax and meaning may have occurred. Cabrera Gandara MD Pager: [phone] Office: [phone] I personally examined the patient and repeated the mayo components of the exam and cardiac history, past medical and surgical history, social and family history. The assessment and plan were formulated and discussed with the patient and family. I spent over 25 minutes (face time) and greater than 50% of this time was spent counseling and/or coordinating the care of the patient with regard the diagnosis and medical regimen Referring Physician: Suze Wiseman MD [id number] [place] [address] documented in this encounter [facility] 10-29-2022 Note HNO ID: [id number] Author: Suze Wiseman MD Service: ? Author Type: Physician Type: Progress Notes Filed: 10/29/2022 10:38 AM Note Text: Chief Complaint Patient presents with: Follow Up: 6 month HPI Mona Jansen is a 82 year old female who presents here today for Above Complaints. Asthma: managed by Dr. Martins at [facility] with last OV earlier this year. Records not available today. States that she continues to have EVANS and they referred her to [facility]. No changes to regimen per pulmonology. Using albuterol 1-2 times per day for SOB. Saw Dr. Mirza and they also did not make any changes. Recommended she use neti pot 2 times per day for her sinuses. Discussed EVANS with cardiology at appointment in March without change in regimen. Refusing statin for LDL >100. F/u 1 year. Recommended she continue current regimen and use Bipap on a nightly basis which she has been compliant with. States the BIpap dries out her sinuses, but the neti pot has helped some with this. Wearing only 4 hours per night. Has seen sleep medicine before without improvement. Refusing repeat referral. GERD: Taking protonix PRN which works well for her. Needing about once per month. BP elevated >130/80 on initial check. Reading at home have been in the 130-150/50-70's this last few days. Drinking 1 cup of coffee per day. Not adding salt. Denies HTN symptoms. Patient has not seen Dr. Serrato for urinary incontinence in at least a couple years. Admits to urinary urgency without frequency, dysuria, hematuria. Not on medication at this time. Has been on oxybutynin with side effect of burning. PHQ-2 / Depression screen He in the past two weeks denies having felt down, depressed, hopeless or with little interest or pleasure in doing things. Using cane for ambulation without falls since last OV. Has living will and DPOA at home. Would like to be DNR CCA. Past medical history, appointments, medications, allergies reviewed. Previous Medical History PAST MEDICAL HISTORY Diagnosis Date Asthma Seeing Dr. Martins Bilateral carotid artery stenosis Diaphragmatic hernia without mention of obstruction or gangrene DVT (deep venous thrombosis) ([facility]) 05/2018 Generalized osteoarthrosis, unspecified site GERD (gastroesophageal reflux disease) Hematoma Dr. Zelaya Hemorrhage of rectum and anus Morbid obesity ([facility]) MONTRELL (obstructive sleep apnea) Other and unspecified hyperlipidemia Overactive bladder Pacemaker Presence of IVC filter Pulmonary embolism ([facility]) Seasonal allergies Dr. Choi SSS (sick sinus syndrome) ([facility]) Seeing Dr. Polk Statin declined SVT (supraventricular tachycardia) ([facility]) Unspecified essential hypertension Urinary incontinence Dr. Serrato Vitamin D deficiency Previous Surgical History PAST SURGICAL HISTORY Procedure Laterality Date ANESTH,PACEMAKER INSERTION ARTHRP ACETBLR/PROX FEM PROSTC AGRFT/ALGRFT 08/13/2005 Hip replacement, total left ARTHRP KNE CONDYLEANDPLATU MEDIALANDLAT COMPARTMENTS 04/05/2005 Knee replacement, total left ARTHRP KNE CONDYLEANDPLATU MEDIALANDLAT COMPARTMENTS 01/2006 Knee replacement, total right COLONOSCOPY FLX DX W/COLLJ SPEC WHEN PFRMD 08/03/2007 COLONOSCOPY FLX DX W/COLLJ SPEC WHEN PFRMD 08/03/2007 Colonoscopy COLONOSCOPY FLX DX W/COLLJ SPEC WHEN PFRMD 09/18/2015 Colonoscopy (MAC) ESOPHAGOGASTRODUODENOSCOPY TRANSORAL DIAGNOSTIC 08/24/2011 EGD ESOPHAGOGASTRODUODENOSCOPY TRANSORAL DIAGNOSTIC 09/18/2015 EGD (MAC) IVC FILTER 05/2018 PAST SURGICAL HISTORY OF 10/2013 Pacer placement Family History FAMILY HISTORY Problem Relation Age of Onset Hypertension Mother Heart Mother AR at age 75 Heart Father AR at age 85, sudden Diabetes Sister Pacemaker; ?had mild AR Heart Sister Diabetes Maternal Uncle Parkinson?s Disease Maternal Uncle Patient Allergies ALLERGIES Allergen Reactions Augmentin [Amoxicil* GI Upset Grass Pollen Unknown Iodine [Contrast Dy* hypotension Mold Unknown Sodium Pentothal [O* tongue numbness Thiopental Unknown Trospium Other: See Comments Leg weakness Current Medications Current Outpatient Medications on File Prior to Visit Medication Sig lisinopril 2.5 mg tablet Take 1 tablet by mouth once daily. MEDICAL SUPPLY Tubigrip elastic support bandages to knees bilaterally to be worn daily for bilateral lower extremity edema. pantoprazole DR (PROTONIX) 40 mg tablet Take 1 tablet by mouth once daily as needed. fluticasone (FLONASE ALLERGY RELIEF) 50 mcg/actuation nasal spray Use 1 [place] in each nostril once daily. albuterol HFA (VENTOLIN HFA) 90 mcg/actuation inhaler Inhale 2 Puffs as instructed every 6 hours as needed for wheezing/shortness of breath. as needed BIPAP Formal mask refitting: Try New mask. Change pressure to BiPAP @ 9/6 cm of water with humidification. Mask (per patient preference) optional chin strap (if indicated) , filters, tu (more content not included)... [facility] 10-29-2022 History of Present illness Narrative Chief Complaint Patient presents with: Follow Up: 6 month HPI Mona Jansen is a 82 year old female who presents here today for Above Complaints. Asthma: managed by Dr. Martins at [facility] with last OV earlier this year. Records not available today. States that she continues to have EVANS and they referred her to [facility]. No changes to regimen per pulmonology. Using albuterol 1-2 times per day for SOB. Saw Dr. Mirza and they also did not make any changes. Recommended she use neti pot 2 times per day for her sinuses. Discussed EVANS with cardiology at appointment in March without change in regimen. Refusing statin for LDL >100. F/u 1 year. Recommended she continue current regimen and use Bipap on a nightly basis which she has been compliant with. States the BIpap dries out her sinuses, but the neti pot has helped some with this. Wearing only 4 hours per night. Has seen sleep medicine before without improvement. Refusing repeat referral. GERD: Taking protonix PRN which works well for her. Needing about once per month. BP elevated >130/80 on initial check. Reading at home have been in the 130-150/50-70's this last few days. Drinking 1 cup of coffee per day. Not adding salt. Denies HTN symptoms. Patient has not seen Dr. Serrato for urinary incontinence in at least a couple years. Admits to urinary urgency without frequency, dysuria, hematuria. Not on medication at this time. Has been on oxybutynin with side effect of burning. PHQ-2 / Depression screen He in the past two weeks denies having felt down, depressed, hopeless or with little interest or pleasure in doing things. Using cane for ambulation without falls since last OV. Has living will and DPOA at home. Would like to be DNR CCA. Past medical history, appointments, medications, allergies reviewed. Previous Medical History PAST MEDICAL HISTORY Diagnosis Date Asthma Seeing Dr. Martins Bilateral carotid artery stenosis Diaphragmatic hernia without mention of obstruction or gangrene DVT (deep venous thrombosis) ([facility]) 05/2018 Generalized osteoarthrosis, unspecified site GERD (gastroesophageal reflux disease) Hematoma Dr. Zelaya Hemorrhage of rectum and anus Morbid obesity ([facility]) MONTRELL (obstructive sleep apnea) Other and unspecified hyperlipidemia Overactive bladder Pacemaker Presence of IVC filter Pulmonary embolism ([facility]) Seasonal allergies Dr. Choi SSS (sick sinus syndrome) ([facility]) Seeing Dr. Polk Statin declined SVT (supraventricular tachycardia) ([facility]) Unspecified essential hypertension Urinary incontinence Dr. Serrato Vitamin D deficiency Previous Surgical History PAST SURGICAL HISTORY Procedure Laterality Date ANESTH,PACEMAKER INSERTION ARTHRP ACETBLR/PROX FEM PROSTC AGRFT/ALGRFT 08/13/2005 Hip replacement, total left ARTHRP KNE CONDYLE&PLATU MEDIAL&LAT COMPARTMENTS 04/05/2005 Knee replacement, total left ARTHRP KNE CONDYLE&PLATU MEDIAL&LAT COMPARTMENTS 01/2006 Knee replacement, total right COLONOSCOPY FLX DX W/COLLJ SPEC WHEN PFRMD 08/03/2007 COLONOSCOPY FLX DX W/COLLJ SPEC WHEN PFRMD 08/03/2007 Colonoscopy COLONOSCOPY FLX DX W/COLLJ SPEC WHEN PFRMD 09/18/2015 Colonoscopy (MAC) ESOPHAGOGASTRODUODENOSCOPY TRANSORAL DIAGNOSTIC 08/24/2011 EGD ESOPHAGOGASTRODUODENOSCOPY TRANSORAL DIAGNOSTIC 09/18/2015 EGD (MAC) IVC FILTER 05/2018 PAST SURGICAL HISTORY OF 10/2013 Pacer placement Family History FAMILY HISTORY Problem Relation Age of Onset Hypertension Mother Heart Mother AR at age 75 Heart Father AR at age 85, sudden Diabetes Sister Pacemaker; ?had mild AR Heart Sister Diabetes Maternal Uncle Parkinson s Disease Maternal Uncle Patient Allergies ALLERGIES Allergen Reactions Augmentin [Amoxicil* GI Upset Grass Pollen Unknown Iodine [Contrast Dy* hypotension Mold Unknown Sodium Pentothal [O* tongue numbness Thiopental Unknown Trospium Other: See Comments Leg weakness Current Medications Current Outpatient Medications on File Prior to Visit Medication Sig lisinopril 2.5 mg tablet Take 1 tablet by mouth once daily. MEDICAL SUPPLY Tubigrip elastic support bandages to knees bilaterally to be worn daily for bilateral lower extremity edema. pantoprazole DR (PROTONIX) 40 mg tablet Take 1 tablet by mouth once daily as needed. fluticasone (FLONASE ALLERGY RELIEF) 50 mcg/actuation nasal spray Use 1 [place] in each nostril once daily. albuterol HFA (VENTOLIN HFA) 90 mcg/actuation inhaler Inhale 2 Puffs as instructed every 6 hours as needed for wheezing/shortness of breath. as needed BIPAP Formal mask refitting: Try New mask. Change pressure to BiPAP @ 9/6 cm of water with humidification. Mask (per patient preference) optional chin strap (if indicated) , filters, tubing, humidifier and lifetime supplies. Cholecalciferol, Vitamin D3, 5,000 unit cap Take 1 capsule by mouth once daily. No current facility-administered medications on file prior to visit. Social History Social History Tobacco Use Smoking status: Never Smokeless tobacco: Never Vaping Use Vaping Use: Never used Substance Use Topics Alcohol use: Yes Comment: ocas-monthly Drug use: No Review of Symptoms REVIEW OF SYSTEMS GENERAL: No weight loss, malaise or fevers RESPIRATORY: See HPI CARDIOVASCULAR: Negative for chest pain, leg swelling, hypertension, CHF or palpitations GI: No nausea, vomiting, or diarrhea : See HPI SKIN: Negative for lesions, rash, and itching EXAM: BP 126/68 Pulse 78 Resp 20 Wt 116 kg (255 lb 12.8 oz) SpO2 98% BMI 43.91 kg/m General Appearance: Well appearing, alert, in no acute distress, well-hydrated, well nourished.. Skin: Skin color, texture, turgor normal, no suspicious rashes or lesions. Neck: Supple, no adenopathy; thyroid symmetric, normal size, no bruits. Lungs: Lungs clear to auscultation. No wheezing, rhonchi, rales.. Heart: RRR without murmur, gallop, or rubs. No ectopy. Abdomen: Normal abdominal exam, Abdomen soft, non-tender. Bowel sounds normal. No masses, organomegaly. Extremities: No pitting edema. Left leg chronically swollen compared to right. Health Maintenance List SHINGRIX VACCINE(1 of 2) Never done ADVANCE DIRECTIVE DISCUSSION Never done DEPRESSION ASSESSMENT Never done INFLUENZA(Season Ended) due on 12/31/2022 ANNUAL PCP TEAM CHRONIC DISEASE VISIT due on 09/24/2023 BP CONTROLLED (<130/80) due on 09/24/2023 DIABETES SCREEN due on 09/09/2025 DTAP,TDAP,TD(3 - Td or Tdap) due on 10/26/2028 BONE DENSITY Completed SPIROMETRY Completed COVID-19 VACCINE Completed PNEUMOCOCCAL: 65+ Completed Data reviewed Component Latest Ref Rng & Units 04/29/2022 09/09/2022 WBC 3.70 - 11.00 k/uL 6.11 6.57 RBC 3.90 - 5.20 m/uL 4.42 4.47 Hemoglobin 11.5 - 15.5 g/dL 12.9 13.6 Hematocrit 36.0 - 46.0 % 41.4 41.0 MCV 80.0 - 100.0 fL 93.7 91.7 MCH 26.0 - 34.0 pg 29.2 30.4 MCHC 30.5 - 36.0 g/dL 31.2 33.2 RDW-CV 11.5 - 15.0 % 13.1 13.2 Platelet Count 150 - 400 k/uL 187 188 MPV 9.0 - 12.7 fL 9.9 10.0 Neut% % 59.1 52.7 Abs Neut (ANC) 1.45 - 7.50 k/uL 3.61 3.46 Lymph% % 30.4 35.9 Abs Lymph 1.00 - 4.00 k/uL 1.86 2.36 Piatt% % 8.2 9.1 Abs Piatt <0.87 k/uL 0.50 0.60 Eosin% % 1.8 1.4 Abs Eosin <0.46 k/uL 0.11 0.09 Baso% % 0.3 0.6 Abs Baso <0.11 k/uL <0.03 0.04 Immature Gran % % 0.2 0.3 IMMATURE GRANS (ABS) <0.10 k/uL <0.03 <0.03 NRBC /100 WBC 0.0 Absolute nRBC <0.01 k/uL <0.01 DTYPE Auto Auto Protein, Total 6.3 - 8.0 g/dL 6.8 7.0 Albumin 3.9 - 4.9 g/dL 4.0 4.1 Calcium 8.5 - 10.2 mg/dL 9.5 9.2 Bilirubin, Total 0.2 - 1.3 mg/dL 0.6 0.6 Alkaline Phosphatase 34 - 123 U/L 52 49 AST 13 - 35 U/L 13 19 ALT 7 - 38 U/L 12 15 Glucose 74 - 99 mg/dL 93 89 BUN 7 - 21 mg/dL 20 17 Creatinine 0.58 - 0.96 mg/dL 0.85 0.91 Sodium 136 - 144 mmol/L 141 140 Potassium 3.7 - 5.1 mmol/L 4.2 4.1 Chloride 97 - 105 mmol/L 102 102 CO2 22 - 30 mmol/L 30 25 Anion Gap 9 - 18 mmol/L 9 13 eGFR >=60 mL/min/1.73m 70 64 Cholesterol, Total <200 mg/dL 184 Triglyceride <150 mg/dL 74 HDL Cholesterol >39 mg/dL 60 Non HDL Cholesterol <130 mg/dL 124 Fasting Time hrs 12 VLDL Cholesterol <30 mg/dL 15 TC:HDL Ratio <5.10 3.07 LDL Cholesterol <100 mg/dL 109 (H) LDL:HDL Ratio <2.54 1.82 TSH 0.270 - 4.200 mIU/L 3.910 ASSESSMENT/PLAN: 1. Essential hypertension - ICD9: 401.9, ICD10: I10 (primary diagnosis) - Controlled - Continue current medications - Recommend home blood pressure monitoring, to bring results to next visit - Encouraged sodium restriction, DASH or Mediterranean diet - Recommend regular aerobic exercise 2. MONTRELL (obstructive sleep apnea) - ICD9: 327.23, ICD10: G47.33 Discussed importance of nightly Bipap use. Refusing referral back to sleep medicine. Will continue nasal saline rinses and neti pot for dryness. 3. Overactive bladder - ICD9: 596.51, ICD10: N32.81 Start Myrbetriq and call with side effects or if symptoms not improving in the next 2-4 weeks. Red flags for re-assessment reviewed with patient in detail. - URINALYSIS WITH MICROSCOPIC, REFLEX CULTURE 4. Presence of IVC filter - ICD9: V45.89, ICD10: Z95.828 F/u with cardiology as scheduled. 5. Cardiac pacemaker - ICD9: V45.01, ICD10: Z95.0 Recommendations per cardiology. 6. Dyspnea on exertion - ICD9: 786.09, ICD10: R06.09 Stable. Continue recommendations per pulmonology and cardiology. Red flags for re-assessment reviewed with patient in detail. 7. Morbid obesity with BMI of 40.0-44.9, adult (HCC) - ICD9: 278.01, V85.41, ICD10: E66.01, Z68.41 Stable - Behavioral intervention 8. Bilateral carotid artery stenosis - ICD9: 433.10, 433.30, ICD10: I65.23 recheck - US CAROTID ARTERIES [facility] 9. Mild intermittent asthma without complication - ICD9: 493.90, ICD10: J45.20 - Mild intermittent asthma stable - Continue current medications - Avoidance of triggers recommended 10. Gastroesophageal reflux disease, unspecified whether esophagitis present - ICD9: 530.81, ICD10: K21.9 - Discussed lifestyle modifications including losing weight, limiting caffeine, and no meals three hours before sleep - Continue treatment with Protonix PRN 11. Falls frequently - ICD9: V15.88, ICD10: R29.6 Doing well with cane. No recent falls. Not interested in PT. 12. Vitamin D deficiency - ICD9: 268.9, ICD10: E55.9 Recheck at future OV. 13. Advance directive discussed with patient - ICD9: V65.49, ICD10: Z71.89 Patient to bring in living will and DPOA. 14. DNR (do not resuscitate) discussion - ICD9: V65.49, ICD10: Z71.89 DNR CCA form completed today. Will scan in and follow her wishes. 15. Pulmonary hypertension (HCC) - ICD9: 416.8, ICD10: I27.20 Recommendations per pulm and cardiology. Continue current regimen. 16. SVT (supraventricular tachycardia) (HCC) - ICD9: 427.89, ICD10: I47.1 Asymptomatic on current regimen I spent a total of 45 minutes on the date of the service which included preparing to see the patient, [id number] patient care, completing clinical documentation, obtaining and/or reviewing separately obtained history, performing a medically appropriate examination, counseling and educating the patient/family/caregiver, and ordering medications, tests, or procedures. Suze Wiseman MD documented in this encounter [facility] 10-27-2022 Note HNO ID: [id number] Author: Daisy Franklin RN Service: ? Author Type: Registered Nurse Type: Progress Notes Filed: 10/27/2022 3:11 PM Note Text: CDM Telephonic Outreach Provider Yashira/TYLORI -htn, asthma Patient denies questions/concerns/needs. Reviewed upcoming appointments. Contacted for: Routine Telephonic Outreach Contact made with patient: Yes Patient identified by name and date of . Discussed care with patient Are you experiencing any new or worsening symptoms you need to talk about today? No Disease Specific Do you check your blood pressure at home? No Do you have new or worsening shortness of breath with activity? No Based on bonderite operator, the following disposition is advised: No symptoms or symptoms present, not severe. Routed to: No Action Needed HARVINDER Education Provided this Outreach: No Daisy Franklin RN October 27, 2022 3:11 PM [facility] 10-27-2022 History of Present illness Narrative CDM Telephonic Outreach Provider Yashira/TYLORI -htn, asthma Patient denies questions/concerns/needs. Reviewed upcoming appointments. Contacted for: Routine Telephonic Outreach Contact made with patient: Yes Patient identified by name and date of . Discussed care with patient Are you experiencing any new or worsening symptoms you need to talk about today? No Disease Specific Do you check your blood pressure at home? No Do you have new or worsening shortness of breath with activity? No Based on bonderite operator, the following disposition is advised: No symptoms or symptoms present, not severe. Routed to: No Action Needed HARVINDER Education Provided this Outreach: Suellen Franklin RN October 27, 2022 3:11 PM documented in this encounter [facility] 10-27-2022 Note Patient Outreach ([facility]) KALYANIMONA Clair ([id number]) 1940 F [place] Date Time Provider Department 10/27/22 DAISY FRANKLIN During your visit today, we recorded the following information about you: Daisy Franklin RN 10/27/2022 3:11 PM Signed CDM Telephonic Outreach Provider Action/FYI -htn, asthma Patient denies questions/concerns/needs. Reviewed upcoming appointments. Contacted for: Routine Telephonic Outreach Contact made with patient: Yes Patient identified by name and date of . Discussed care with patient Are you experiencing any new or worsening symptoms you need to talk about today? No Disease Specific Do you check your blood pressure at home? No Do you have new or worsening shortness of breath with activity? No Based on bonderite operator, the following disposition is advised: No symptoms or symptoms present, not severe. Routed to: No Action Needed HARVINDER Education Provided this Outreach: No Daisy Franklin RN October 27, 2022 3:11 PM Allergies As of Date: 10/27/2022 Noted Allergy Reaction AUGMENTIN (AMOXICILLIN-POT CLAVUL*05/17/2012 8 - GI Upset GRASS POLLEN 10/09/2013 16 - Unknown IODINE (CONTRAST DYE) 02/01/2005 Comments: hypotension MOLD 10/09/2013 16 - Unknown sodium pentothal [Other] 02/01/2005 Comments: tongue numbness THIOPENTAL 16 - Unknown TROSPIUM 10/31/2018 14 - Other: See Comments Comments: Leg weakness Date Reviewed: 09/23/2022 Reviewed by: Tracey Mtz Power Generation Technician - Fully Assessed Reason for Visit: Community Monitoring Outreach [Other] Cmt: CDM follow up Prescriptions as of 10/27/2022 - lisinopril 2.5 mg tablet Take 1 tablet by mouth once daily. - MEDICAL SUPPLY Tubigrip elastic support bandages to knees bilaterally to be worn daily for bilateral lower extremity edema. - pantoprazole DR (PROTONIX) 40 mg tablet Take 1 tablet by mouth once daily as needed. - fluticasone (FLONASE ALLERGY RELIEF) 50 mcg/actuation nasal spray Use 1 [place] in each nostril once daily. - albuterol HFA (VENTOLIN HFA) 90 mcg/actuation inhaler Inhale 2 Puffs as instructed every 6 hours as needed for wheezing/shortness of breath. as needed - BIPAP Formal mask refitting: Try New mask. Change pressure to BiPAP @ 9/6 cm of water with humidification. Mask (per patient preference) optional chin strap (if indicated) , filters, tubing, humidifier and lifetime supplies. - Cholecalciferol, Vitamin D3, 5,000 unit cap Take 1 capsule by mouth once daily. Meds Comments as of 09/08/2022: Takes Mobile2[employer] [place] defense every day as of winter 201805/10/21 severe interaction: K/sim September 08, 2022 Denies new medications or medication changes within the last 30 days. Fernanda Urbina RN Problem List As Of Date 10/27/2022 Noted Resolved OVERWEIGHT [E66.9] 11/10/2016 Essential hypertension [I10] Mixed hyperlipidemia [E78.2] GENERAL OSTEOARTHROSIS [M15.9] Swelling, mass, or lump in chest [R22.2] 06/06/2007 02/20/2010 HEMORRHOIDS NOS [K64.9] 07/06/2007 POSTNASAL DRIP [R09.82] 10/18/2007 PSVT (paroxysmal supraventricular tachycardia) *10/08/2013 Bradycardia [R00.1] 10/08/2013 GERD (gastroesophageal reflux disease) [K21.9] Sick sinus syndrome (HCC) [I49.5] 10/23/2013 Syncope and collapse [R55] 11/19/2013 Cardiac pacemaker in situ [Z95.0] 07/03/2014 Vitamin D deficiency [E55.9] 01/31/2015 Acute back pain with sciatica [M54.40] 06/05/2015 05/19/2021 Mild intermittent asthma without complication [*09/03/2015 Morbid obesity due to excess calories (HCC) [E6*09/14/2015 11/10/2016 Post herpetic neuralgia [B02.29] 07/15/2016 Morbid obesity with BMI of 40.0-44.9, adult (HC*11/10/2016 12/24/2016 Bilateral carotid artery stenosis [I65.23] 11/10/2016 Unsteady gait [R26.81] 11/19/2016 Generalized weakness [R53.1] 11/19/2016 Obesity (BMI 35.0-39.9 without comorbidity) [E6*12/24/2016 12/29/2016 Morbid obesity with BMI of 40.0-44.9, adult (HC* Benign paroxysmal vertigo of both ears [H81.13] 07/06/2017 Sepsis due to urinary tract infection (HCC) [A4*11/20/2017 11/26/2017 Hyponatremia [E87.1] 11/21/2017 11/26/2017 Weakness [R53.1] 11/21/2017 11/26/2017 RUPERT (acute kidney injury) (HCC) [N17.9] 11/21/2017 11/26/2017 Acute rhinosinusitis [J01.90] 11/21/2017 11/26/2017 Obesity, Class III, BMI >= 40 [E66.01] 11/21/2017 05/19/2021 Acute asthma exacerbation [J45.901] 11/26/2017 11/26/2017 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*04/01/2018 Status post total right knee replacement [Z96.6*04/01/2018 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.642] 04/01/2018 Lumbar degenerative disc disease [M51.36] 04/01/2018 Posterior tibial tendon dysfunction, left [M76.*04/01/2018 History of DVT (deep vein thrombosis) [Z86.718] 05/12/2018 Aftercare [Z51.89] 05/22/2018 Hematoma [T14.8XXA] 05/22/2018 Other pulmonary embolism without acute cor pulm*05/22/2018 05/19/2021 Acute blood loss anemia [D62] 0 (more content not included)... [facility] 10-14-2022 Note Patient Outreach (AM BC) MONA JANSEN ([id number]) 1940 F [place] Date Time Provider Department 10/14/22 DAISY FRANKLIN During your visit today, we recorded the following information about you: Daisy Franklin RN 10/14/2022 11:20 AM Signed [facility] Telephonic Outreach Provider Action/FYI -htn, asthma Contacted for: Routine Telephonic Outreach Contact made with patient: No, left message. Daisy Franklin RN October 14, 2022 11:19 AM Allergies As of Date: 10/14/2022 Noted Allergy Reaction AUGMENTIN (AMOXICILLIN-POT CLAVUL*05/17/2012 8 - GI Upset GRASS POLLEN 10/09/2013 16 - Unknown IODINE (CONTRAST DYE) 02/01/2005 Comments: hypotension MOLD 10/09/2013 16 - Unknown sodium pentothal [Other] 02/01/2005 Comments: tongue numbness THIOPENTAL 16 - Unknown TROSPIUM 10/31/2018 14 - Other: See Comments Comments: Leg weakness Date Reviewed: 09/23/2022 Reviewed by: Tracey Mtz Power Generation Technician - Fully Assessed Reason for Visit: Community Monitoring Outreach [Other] Cmt: [facility] follow up Prescriptions as of 10/14/2022 - lisinopril 2.5 mg tablet Take 1 tablet by mouth once daily. - MEDICAL SUPPLY Tubigrip elastic support bandages to knees bilaterally to be worn daily for bilateral lower extremity edema. - pantoprazole DR (PROTONIX) 40 mg tablet Take 1 tablet by mouth once daily as needed. - fluticasone (FLONASE ALLERGY RELIEF) 50 mcg/actuation nasal spray Use 1 [place] in each nostril once daily. - albuterol HFA (VENTOLIN HFA) 90 mcg/actuation inhaler Inhale 2 Puffs as instructed every 6 hours as needed for wheezing/shortness of breath. as needed - BIPAP Formal mask refitting: Try New mask. Change pressure to BiPAP @ 9/6 cm of water with humidification. Mask (per patient preference) optional chin strap (if indicated) , filters, tubing, humidifier and lifetime supplies. - Cholecalciferol, Vitamin D3, 5,000 unit cap Take 1 capsule by mouth once daily. Meds Comments as of 09/08/2022: Takes [place] defense every day as of winter 201805/10/21 severe interaction: K/antivert September 08, 2022 Denies new medications or medication changes within the last 30 days. Fernanda Urbina RN Problem List As Of Date 10/14/2022 Noted Resolved OVERWEIGHT [E66.9] 11/10/2016 Essential hypertension [I10] Mixed hyperlipidemia [E78.2] GENERAL OSTEOARTHROSIS [M15.9] Swelling, mass, or lump in chest [R22.2] 06/06/2007 02/20/2010 HEMORRHOIDS NOS [K64.9] 07/06/2007 POSTNASAL DRIP [R09.82] 10/18/2007 PSVT (paroxysmal supraventricular tachycardia) *10/08/2013 Bradycardia [R00.1] 10/08/2013 GERD (gastroesophageal reflux disease) [K21.9] Sick sinus syndrome (HCC) [I49.5] 10/23/2013 Syncope and collapse [R55] 11/19/2013 Cardiac pacemaker in situ [Z95.0] 07/03/2014 Vitamin D deficiency [E55.9] 01/31/2015 Acute back pain with sciatica [M54.40] 06/05/2015 05/19/2021 Mild intermittent asthma without complication [*09/03/2015 Morbid obesity due to excess calories (HCC) [E6*09/14/2015 11/10/2016 Post herpetic neuralgia [B02.29] 07/15/2016 Morbid obesity with BMI of 40.0-44.9, adult (HC*11/10/2016 12/24/2016 Bilateral carotid artery stenosis [I65.23] 11/10/2016 Unsteady gait [R26.81] 11/19/2016 Generalized weakness [R53.1] 11/19/2016 Obesity (BMI 35.0-39.9 without comorbidity) [E6*12/24/2016 12/29/2016 Morbid obesity with BMI of 40.0-44.9, adult (HC* Benign paroxysmal vertigo of both ears [H81.13] 07/06/2017 Sepsis due to urinary tract infection (HCC) [A4*11/20/2017 11/26/2017 Hyponatremia [E87.1] 11/21/2017 11/26/2017 Weakness [R53.1] 11/21/2017 11/26/2017 RUPERT (acute kidney injury) ([facility]) [N17.9] 11/21/2017 11/26/2017 Acute rhinosinusitis [J01.90] 11/21/2017 11/26/2017 Obesity, Class III, BMI >= 40 [E66.01] 11/21/2017 05/19/2021 Acute asthma exacerbation [J45.901] 11/26/2017 11/26/2017 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*04/01/2018 Status post total right knee replacement [Z96.6*04/01/2018 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.642] 04/01/2018 Lumbar degenerative disc disease [M51.36] 04/01/2018 Posterior tibial tendon dysfunction, left [M76.*04/01/2018 History of DVT (deep vein thrombosis) [Z86.718] 05/12/2018 Aftercare [Z51.89] 05/22/2018 Hematoma [T14.8XXA] 05/22/2018 Other pulmonary embolism without acute cor pulm*05/22/2018 05/19/2021 Acute blood loss anemia [D62] 05/22/2018 05/19/2021 Dyspnea on exertion [R06.09] 07/11/2018 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] DVT (deep venous thrombosis) ([facility]) [I82.409] 05/02/2018 05/19/2021 History of pulmonary embolus (PE) [Z86.711] Cardiac pacemaker [Z95.0] Rotator cuff syndrome of right shoulder [M75.10*08/23/2018 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 [facility] 10-14-2022 Note HNO ID: [id number] Author: Daisy Franklin RN Service: ? Author Type: Registered Nurse Type: Progress Notes Filed: 10/14/2022 11:20 AM Note Text: CDM Telephonic Outreach Provider Action/FYI -htn, asthma Contacted for: Routine Telephonic Outreach Contact made with patient: No, left message. Daisy Franklin RN October 14, 2022 11:19 AM [facility] 10-14-2022 History of Present illness Narrative CDM Telephonic Outreach Provider Action/FYI -htn, asthma Contacted for: Routine Telephonic Outreach Contact made with patient: No, left message. Daisy Franklin RN October 14, 2022 11:19 AM documented in this encounter [facility] 09-23-2022 Note HNO ID: [id number] Author: Chela Méndez APRN.MICHELLE Service: ? Author Type: Nurse Practitioner Type: Progress Notes Filed: 09/23/2022 10:24 AM Note Text: Chief Complaint Patient presents with: Follow Up: Blood pressure HPI Mona Jansen is a 82 year old female who presents here today for Above Complaints.. Patient presents for BP follow up. Patient had been having low BP after covid but was experiencing high bp's 160-180 sbp. Patient was initiated on lisinoprill on 09/09. Patient reports she is tolerating medication well. Past medical history, appointments, medications, allergies reviewed. Previous Medical History PAST MEDICAL HISTORY Diagnosis Date Asthma Seeing Dr. Martins Bilateral carotid artery stenosis Diaphragmatic hernia without mention of obstruction or gangrene DVT (deep venous thrombosis) ([facility]) 05/2018 Generalized osteoarthrosis, unspecified site GERD (gastroesophageal reflux disease) Hematoma Dr. Zelaya Hemorrhage of rectum and anus Morbid obesity ([facility]) MONTRELL (obstructive sleep apnea) Other and unspecified hyperlipidemia Overactive bladder Pacemaker Presence of IVC filter Pulmonary embolism ([facility]) Seasonal allergies Dr. Choi SSS (sick sinus syndrome) ([facility]) Seeing Dr. Polk Statin declined SVT (supraventricular tachycardia) (HCC) Unspecified essential hypertension Urinary incontinence Dr. Serrato Vitamin D deficiency Previous Surgical History PAST SURGICAL HISTORY Procedure Laterality Date ANESTH,PACEMAKER INSERTION ARTHRP ACETBLR/PROX FEM PROSTC AGRFT/ALGRFT 08/13/2005 Hip replacement, total left ARTHRP KNE CONDYLEANDPLATU MEDIALANDLAT COMPARTMENTS 04/05/2005 Knee replacement, total left ARTHRP KNE CONDYLEANDPLATU MEDIALANDLAT COMPARTMENTS 01/2006 Knee replacement, total right COLONOSCOPY FLX DX W/COLLJ SPEC WHEN PFRMD 08/03/2007 COLONOSCOPY FLX DX W/COLLJ SPEC WHEN PFRMD 08/03/2007 Colonoscopy COLONOSCOPY FLX DX W/COLLJ SPEC WHEN PFRMD 09/18/2015 Colonoscopy (MAC) ESOPHAGOGASTRODUODENOSCOPY TRANSORAL DIAGNOSTIC 08/24/2011 EGD ESOPHAGOGASTRODUODENOSCOPY TRANSORAL DIAGNOSTIC 09/18/2015 EGD (MAC) IVC FILTER 05/2018 PAST SURGICAL HISTORY OF 10/2013 Pacer placement Family History FAMILY HISTORY Problem Relation Age of Onset Hypertension Mother Heart Mother AR at age 75 Heart Father AR at age 85, sudden Diabetes Sister Pacemaker; ?had mild AR Heart Sister Diabetes Maternal Uncle Parkinson?s Disease Maternal Uncle Patient Allergies ALLERGIES Allergen Reactions Augmentin [Amoxicil* GI Upset Grass Pollen Unknown Iodine [Contrast Dy* hypotension Mold Unknown Sodium Pentothal [O* tongue numbness Thiopental Unknown Trospium Other: See Comments Leg weakness Current Medications Current Outpatient Medications on File Prior to Visit Medication Sig lisinopril 2.5 mg tablet Take 1 tablet by mouth once daily. MEDICAL SUPPLY Tubigrip elastic support bandages to knees bilaterally to be worn daily for bilateral lower extremity edema. pantoprazole DR (PROTONIX) 40 mg tablet Take 1 tablet by mouth once daily as needed. fluticasone (FLONASE ALLERGY RELIEF) 50 mcg/actuation nasal spray Use 1 [place] in each nostril once daily. albuterol HFA (VENTOLIN HFA) 90 mcg/actuation inhaler Inhale 2 Puffs as instructed every 6 hours as needed for wheezing/shortness of breath. as needed BIPAP Formal mask refitting: Try New mask. Change pressure to BiPAP @ 9/6 cm of water with humidification. Mask (per patient preference) optional chin strap (if indicated) , filters, tubing, humidifier and lifetime supplies. Cholecalciferol, Vitamin D3, 5,000 unit cap Take 1 capsule by mouth once daily. No current facility-administered medications on file prior to visit. Social History Social History Tobacco Use Smoking status: Never Smokeless tobacco: Never Vaping Use Vaping Use: Never used Substance Use Topics Alcohol use: Yes Comment: ocas-monthly Drug use: No Review of Symptoms REVIEW OF SYSTEMS SEE HPI EXAM: BP 128/76 Pulse 84 Resp 18 Wt 116.1 kg (256 lb) BMI 43.94 kg/m? General Appearance: Well appearing, alert, in no acute distress, well-hydrated, well nourished.. Lungs: Lungs clear to auscultation. No wheezing, rhonchi, rales.. Heart: RRR without murmur, gallop, or rubs. No ectopy. Peripheral Pulses: Normal. Health Maintenance List BP CONTROLLED (<130/80) Never done SHINGRIX VACCINE(1 of 2) Never done ADVANCE DIRECTIVE DISCUSSION Never done DEPRESSION ASSESSMENT Never done INFLUENZA(Season Ended) due on 12/31/2022 ANNUAL PCP TEAM CHRONIC DISEASE VISIT due on 09/10/2023 DIABETES SCREEN due on 09/09/2025 DTAP,TDAP,TD(3 - Td or Tdap) due on 10/26/2028 BONE DENSITY Completed SPIROMETRY Completed COVID-19 VACCINE Completed PNEUMOCOCCAL: 65+ Completed ASSESSMENT/PLAN: 1. Essential hypertension - ICD9: 401.9, ICD10: I10 - good control (more content not included)... [facility] 09-20-2022 Note HNO ID: [id number] Author: Daisy Franklin RN Service: ? Author Type: Registered Nurse Type: Progress Notes Filed: 09/20/2022 2:20 PM Note Text: CDM Telephonic Outreach Provider Action/FYI -htn, asthma Patient states my allergies are bad right now, and sometimes I feel tired . Patient denies any other questions/concerns/needs. Reviewed upcoming appointments. Contacted for: Routine Telephonic Outreach Contact made with patient: Yes Patient identified by name and date of . Discussed care with patient Are you experiencing any new or worsening symptoms you need to talk about today? No Disease Specific Do you check your blood pressure at home? Yes, Enter readings: 113/57 Do you have new or worsening shortness of breath with activity? No Based on bonderite operator, the following disposition is advised: No symptoms or symptoms present, not severe. Routed to: No Action Needed HARVINDER Education Provided this Outreach: No Daisy Franklin RN September 20, 2022 2:16 PM [facility] 09-20-2022 Note Patient Outreach (AM BC) MONA JANSEN ([id number]) 1940 F [facility] Date Time Provider Department 09/20/22 DAISY FRANKLIN During your visit today, we recorded the following information about you: Daisy Franklin RN 09/20/2022 2:20 PM Signed CDM Telephonic Outreach Provider Action/FYI -htn, asthma Patient states my allergies are bad right now, and sometimes I feel tired . Patient denies any other questions/concerns/needs. Reviewed upcoming appointments. Contacted for: Routine Telephonic Outreach Contact made with patient: Yes Patient identified by name and date of . Discussed care with patient Are you experiencing any new or worsening symptoms you need to talk about today? No Disease Specific Do you check your blood pressure at home? Yes, Enter readings: 113/57 Do you have new or worsening shortness of breath with activity? No Based on bonderite operator, the following disposition is advised: No symptoms or symptoms present, not severe. Routed to: No Action Needed HARVINDER Education Provided this Outreach: No Daisy Franklin RN September 20, 2022 2:16 PM Allergies As of Date: 09/20/2022 Noted Allergy Reaction AUGMENTIN (AMOXICILLIN-POT CLAVUL*05/17/2012 8 - GI Upset GRASS POLLEN 10/09/2013 16 - Unknown IODINE (CONTRAST DYE) 02/01/2005 Comments: hypotension MOLD 10/09/2013 16 - Unknown sodium pentothal [Other] 02/01/2005 Comments: tongue numbness THIOPENTAL 16 - Unknown TROSPIUM 10/31/2018 14 - Other: See Comments Comments: Leg weakness Date Reviewed: 09/09/2022 Reviewed by: Tracey Mtz Cma - Fully Assessed Reason for Visit: Community Monitoring Outreach [Other] Cmt: CDM follow up Prescriptions as of 09/20/2022 - lisinopril 2.5 mg tablet Take 1 tablet by mouth once daily. - MEDICAL SUPPLY Tubigrip elastic support bandages to knees bilaterally to be worn daily for bilateral lower extremity edema. - pantoprazole DR (PROTONIX) 40 mg tablet Take 1 tablet by mouth once daily as needed. - fluticasone (FLONASE ALLERGY RELIEF) 50 mcg/actuation nasal spray Use 1 [place] in each nostril once daily. - albuterol HFA (VENTOLIN HFA) 90 mcg/actuation inhaler Inhale 2 Puffs as instructed every 6 hours as needed for wheezing/shortness of breath. as needed - BIPAP Formal mask refitting: Try New mask. Change pressure to BiPAP @ 9/6 cm of water with humidification. Mask (per patient preference) optional chin strap (if indicated) , filters, tubing, humidifier and lifetime supplies. - Cholecalciferol, Vitamin D3, 5,000 unit cap Take 1 capsule by mouth once daily. Meds Comments as of 09/08/2022: Takes [employer] [place] defense every day as of winter 201805/10/21 severe interaction: K/antivsinan September 08, 2022 Denies new medications or medication changes within the last 30 days. Fernanda Urbina RN Problem List As Of Date 09/20/2022 Noted Resolved OVERWEIGHT [E66.9] 11/10/2016 Essential hypertension [I10] Mixed hyperlipidemia [E78.2] GENERAL OSTEOARTHROSIS [M15.9] Swelling, mass, or lump in chest [R22.2] 06/06/2007 02/20/2010 HEMORRHOIDS NOS [K64.9] 07/06/2007 POSTNASAL DRIP [R09.82] 10/18/2007 PSVT (paroxysmal supraventricular tachycardia) *10/08/2013 Bradycardia [R00.1] 10/08/2013 GERD (gastroesophageal reflux disease) [K21.9] Sick sinus syndrome (HCC) [I49.5] 10/23/2013 Syncope and collapse [R55] 11/19/2013 Cardiac pacemaker in situ [Z95.0] 07/03/2014 Vitamin D deficiency [E55.9] 01/31/2015 Acute back pain with sciatica [M54.40] 06/05/2015 05/19/2021 Mild intermittent asthma without complication [*09/03/2015 Morbid obesity due to excess calories (HCC) [E6*09/14/2015 11/10/2016 Post herpetic neuralgia [B02.29] 07/15/2016 Morbid obesity with BMI of 40.0-44.9, adult (HC*11/10/2016 12/24/2016 Bilateral carotid artery stenosis [I65.23] 11/10/2016 Unsteady gait [R26.81] 11/19/2016 Generalized weakness [R53.1] 11/19/2016 Obesity (BMI 35.0-39.9 without comorbidity) [E6*12/24/2016 12/29/2016 Morbid obesity with BMI of 40.0-44.9, adult (HC* Benign paroxysmal vertigo of both ears [H81.13] 07/06/2017 Sepsis due to urinary tract infection (HCC) [A4*11/20/2017 11/26/2017 Hyponatremia [E87.1] 11/21/2017 11/26/2017 Weakness [R53.1] 11/21/2017 11/26/2017 RUPERT (acute kidney injury) (HCC) [N17.9] 11/21/2017 11/26/2017 Acute rhinosinusitis [J01.90] 11/21/2017 11/26/2017 Obesity, Class III, BMI >= 40 [E66.01] 11/21/2017 05/19/2021 Acute asthma exacerbation [J45.901] 11/26/2017 11/26/2017 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*04/01/2018 Status post total right knee replacement [Z96.6*04/01/2018 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.642] 04/01/2018 Lumbar degenerative disc disease [M51.36] 04/01/2018 Posterior tibial tendon dysfunction, left [M76.*04/01/2018 History of DVT (deep vein thrombosis) [Z86.718] 05/12/2018 Aftercare [Z51.89] 05/22/2018 Hematoma [T14.8XXA] (more content not included)... [facility] 09-10-2022 Miscellaneous Notes Patient notified and verbalized understanding Tracey Mtz Cma Please let patient know her labs are normal. documented in this encounter [facility] 09-09-2022 Note HNO ID: [id number] Author: Chela Méndez APRN.CNP Service: ? Author Type: Nurse Practitioner Type: Progress Notes Filed: 09/09/2022 10:45 AM Note Text: Chief Complaint Patient presents with: Follow Up: Blood pressure HPI Mona Jansen is a 82 year old female who presents here today for Above Complaints.. Patient presents for concerns of dizziness and high BP. Patient reports BP at home was in the 160's-180's. Patient had been on lisinopril and lasix in the past but these were discontinued due to low BP and orthostatic syncope following covid last year. Patient reports that her BP has slowly been increasing since then. Past medical history, appointments, medications, allergies reviewed. Previous Medical History PAST MEDICAL HISTORY Diagnosis Date Asthma Seeing Dr. Martins Bilateral carotid artery stenosis Diaphragmatic hernia without mention of obstruction or gangrene DVT (deep venous thrombosis) ([facility]) 05/2018 Generalized osteoarthrosis, unspecified site GERD (gastroesophageal reflux disease) Hematoma Dr. Zelaya Hemorrhage of rectum and anus Morbid obesity ([facility]) MONTRELL (obstructive sleep apnea) Other and unspecified hyperlipidemia Overactive bladder Pacemaker Presence of IVC filter Pulmonary embolism ([facility]) Seasonal allergies Dr. Choi SSS (sick sinus syndrome) ([facility]) Seeing Dr. Polk Statin declined SVT (supraventricular tachycardia) ([facility]) Unspecified essential hypertension Urinary incontinence Dr. Serrato Vitamin D deficiency Previous Surgical History PAST SURGICAL HISTORY Procedure Laterality Date ANESTH,PACEMAKER INSERTION ARTHRP ACETBLR/PROX FEM PROSTC AGRFT/ALGRFT 08/13/2005 Hip replacement, total left ARTHRP KNE CONDYLEANDPLATU MEDIALANDLAT COMPARTMENTS 04/05/2005 Knee replacement, total left ARTHRP KNE CONDYLEANDPLATU MEDIALANDLAT COMPARTMENTS 01/2006 Knee replacement, total right COLONOSCOPY FLX DX W/COLLJ SPEC WHEN PFRMD 08/03/2007 COLONOSCOPY FLX DX W/COLLJ SPEC WHEN PFRMD 08/03/2007 Colonoscopy COLONOSCOPY FLX DX W/COLLJ SPEC WHEN PFRMD 09/18/2015 Colonoscopy (MAC) ESOPHAGOGASTRODUODENOSCOPY TRANSORAL DIAGNOSTIC 08/24/2011 EGD ESOPHAGOGASTRODUODENOSCOPY TRANSORAL DIAGNOSTIC 09/18/2015 EGD (MAC) IVC FILTER 05/2018 PAST SURGICAL HISTORY OF 10/2013 Pacer placement Family History FAMILY HISTORY Problem Relation Age of Onset Hypertension Mother Heart Mother AR at age 75 Heart Father AR at age 85, sudden Diabetes Sister Pacemaker; ?had mild [place] Heart Sister Diabetes Maternal Uncle Parkinson?s Disease Maternal Uncle Patient Allergies ALLERGIES Allergen Reactions Augmentin [Amoxicil* GI Upset Grass Pollen Unknown Iodine [Contrast Dy* hypotension Mold Unknown Sodium Pentothal [O* tongue numbness Thiopental Unknown Trospium Other: See Comments Leg weakness Current Medications Current Outpatient Medications on File Prior to Visit Medication Sig MEDICAL SUPPLY Tubigrip elastic support bandages to knees bilaterally to be worn daily for bilateral lower extremity edema. pantoprazole DR (PROTONIX) 40 mg tablet Take 1 tablet by mouth once daily as needed. fluticasone (FLONASE ALLERGY RELIEF) 50 mcg/actuation nasal spray Use 1 [place] in each nostril once daily. albuterol HFA (VENTOLIN HFA) 90 mcg/actuation inhaler Inhale 2 Puffs as instructed every 6 hours as needed for wheezing/shortness of breath. as needed BIPAP Formal mask refitting: Try New mask. Change pressure to BiPAP @ 9/6 cm of water with humidification. Mask (per patient preference) optional chin strap (if indicated) , filters, tubing, humidifier and lifetime supplies. Cholecalciferol, Vitamin D3, 5,000 unit cap Take 1 capsule by mouth once daily. No current facility-administered medications on file prior to visit. Social History Social History Tobacco Use Smoking status: Never Smokeless tobacco: Never Vaping Use Vaping Use: Never used Substance Use Topics Alcohol use: Yes Comment: ocas-monthly Drug use: No Review of Symptoms REVIEW OF SYSTEMS SEE HPI EXAM: BP 142/78 Pulse 88 Resp 18 Wt 116.6 kg (257 lb) SpO2 96% BMI 44.11 kg/m? General Appearance: Well appearing, alert, in no acute distress, well-hydrated, well nourished.. Lungs: Lungs clear to auscultation. No wheezing, rhonchi, rales.. Heart: RRR without murmur, gallop, or rubs. No ectopy. Peripheral Pulses: Normal. Health Maintenance List SHINGRIX VACCINE(1 of 2) Never done ADVANCE DIRECTIVE DISCUSSION Never done DEPRESSION ASSESSMENT Never done INFLUENZA(Season Ended) due on 12/31/2022 ANNUAL PCP TEAM CHRONIC DISEASE VISIT due on 04/30/2023 BP CONTROLLED (<130/80) due on 04/30/2023 DIABETES SCREEN due on 04/29/2025 DTAP,TDAP,TD(3 - Td or Tdap) due on 10/26/2028 BONE DENSITY Completed SPIROMETRY Completed COVID-19 VACCINE Completed PNEUMOCOCCAL: 65+ Completed ASSESSMENT/PLAN: 1. Harry (more content not included)... [facility] 09-08-2022 Miscellaneous Notes Request completed and faxed. Confirmed and filed. Shagufta Gibbs Ma Type of letter/form/fax request - Medical Necessity Form received from Annamaria on 2c floor and placed on [facility]'s desk for completion. Completed form needs to be faxed to [phone]. Route to [place] when form completed for processing documented in this encounter [facility] 08-24-2022 Note Patient Outreach (AM BC) MONA JANSEN ([id number]) 1940 F [facility] Date Time Provider Department 08/24/22 DAISY FRANKLIN During your visit today, we recorded the following information about you: Daisy Franklin RN 08/24/2022 10:18 AM Signed CDM Telephonic Outreach Provider Action/FYI -htn Contacted for: Routine Telephonic Outreach Contact made with patient: No, left message. Dasiy Franklin RN August 24, 2022 10:18 AM Allergies As of Date: 08/24/2022 Noted Allergy Reaction AUGMENTIN (AMOXICILLIN-POT CLAVUL*05/17/2012 8 - GI Upset GRASS POLLEN 10/09/2013 16 - Unknown IODINE (CONTRAST DYE) 02/01/2005 Comments: hypotension MOLD 10/09/2013 16 - Unknown sodium pentothal [Other] 02/01/2005 Comments: tongue numbness THIOPENTAL 16 - Unknown TROSPIUM 10/31/2018 14 - Other: See Comments Comments: Leg weakness Date Reviewed: 03/30/2022 Reviewed by: Audrey Bowman - Fully Assessed Reason for Visit: Community Monitoring Outreach [Other] Cmt: CDM follow up Prescriptions as of 09/02/2022 - MEDICAL SUPPLY Tubigrip elastic support bandages to knees bilaterally to be worn daily for bilateral lower extremity edema. - pantoprazole DR (PROTONIX) 40 mg tablet Take 1 tablet by mouth once daily as needed. - fluticasone (FLONASE ALLERGY RELIEF) 50 mcg/actuation nasal spray Use 1 [place] in each nostril once daily. - albuterol HFA (VENTOLIN HFA) 90 mcg/actuation inhaler Inhale 2 Puffs as instructed every 6 hours as needed for wheezing/shortness of breath. as needed - BIPAP Formal mask refitting: Try New mask. Change pressure to BiPAP @ 9/6 cm of water with humidification. Mask (per patient preference) optional chin strap (if indicated) , filters, tubing, humidifier and lifetime supplies. - Cholecalciferol, Vitamin D3, 5,000 unit cap Take 1 capsule by mouth once daily. Meds Comments as of 05/11/2021: Takes Elderberry defense every day as of winter 201805/10/21 severe interaction: K/antivert Problem List As Of Date 08/24/2022 Noted Resolved OVERWEIGHT [E66.9] 11/10/2016 Essential hypertension [I10] Mixed hyperlipidemia [E78.2] GENERAL OSTEOARTHROSIS [M15.9] Swelling, mass, or lump in chest [R22.2] 06/06/2007 02/20/2010 HEMORRHOIDS NOS [K64.9] 07/06/2007 POSTNASAL DRIP [R09.82] 10/18/2007 PSVT (paroxysmal supraventricular tachycardia) *10/08/2013 Bradycardia [R00.1] 10/08/2013 GERD (gastroesophageal reflux disease) [K21.9] Sick sinus syndrome (HCC) [I49.5] 10/23/2013 Syncope and collapse [R55] 11/19/2013 Cardiac pacemaker in situ [Z95.0] 07/03/2014 Vitamin D deficiency [E55.9] 01/31/2015 Acute back pain with sciatica [M54.40] 06/05/2015 05/19/2021 Mild intermittent asthma without complication [*09/03/2015 Morbid obesity due to excess calories (HCC) [E6*09/14/2015 11/10/2016 Post herpetic neuralgia [B02.29] 07/15/2016 Morbid obesity with BMI of 40.0-44.9, adult (HC*11/10/2016 12/24/2016 Bilateral carotid artery stenosis [I65.23] 11/10/2016 Unsteady gait [R26.81] 11/19/2016 Generalized weakness [R53.1] 11/19/2016 Obesity (BMI 35.0-39.9 without comorbidity) [E6*12/24/2016 12/29/2016 Morbid obesity with BMI of 40.0-44.9, adult (HC* Benign paroxysmal vertigo of both ears [H81.13] 07/06/2017 Sepsis due to urinary tract infection (HCC) [A4*11/20/2017 11/26/2017 Hyponatremia [E87.1] 11/21/2017 11/26/2017 Weakness [R53.1] 11/21/2017 11/26/2017 RUPERT (acute kidney injury) (HCC) [N17.9] 11/21/2017 11/26/2017 Acute rhinosinusitis [J01.90] 11/21/2017 11/26/2017 Obesity, Class III, BMI >= 40 [E66.01] 11/21/2017 05/19/2021 Acute asthma exacerbation [J45.901] 11/26/2017 11/26/2017 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*04/01/2018 Status post total right knee replacement [Z96.6*04/01/2018 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.642] 04/01/2018 Lumbar degenerative disc disease [M51.36] 04/01/2018 Posterior tibial tendon dysfunction, left [M76.*04/01/2018 History of DVT (deep vein thrombosis) [Z86.718] 05/12/2018 Aftercare [Z51.89] 05/22/2018 Hematoma [T14.8XXA] 05/22/2018 Other pulmonary embolism without acute cor pulm*05/22/2018 05/19/2021 Acute blood loss anemia [D62] 05/22/2018 05/19/2021 Dyspnea on exertion [R06.09] 07/11/2018 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] DVT (deep venous thrombosis) (HCC) [I82.409] 05/02/2018 05/19/2021 History of pulmonary embolus (PE) [Z86.711] Cardiac pacemaker [Z95.0] Rotator cuff syndrome of right shoulder [M75.10*08/23/2018 Adhesive capsulitis of right shoulder [M75.01] 08/23/2018 Overactive bladder [N32.81] MONTRELL (obstructive sleep apnea) [G47.33] 10/13/2020 Abnormality of gait [R26.9] 11/13/2020 Falls frequently [R29.6] 11/13/2020 Weakness of both lower extremities [R29.898] 11/13/2020 Abnormal posture [R29.3] 12/17/2020 Pneumonia due to COVID-19 virus [U07.1, J12.82] 04/09/2021 Malnutrition of mild degree (HCC) [E44.1] 04/01 (more content not included)... [facility] 08-24-2022 Note HNO ID: [id number] Author: Daisy Franklin RN Service: ? Author Type: Registered Nurse Type: Progress Notes Filed: 08/24/2022 10:18 AM Note Text: CDM Telephonic Outreach Provider Action/FYI -htn Contacted for: Routine Telephonic Outreach Contact made with patient: No, left message. Daisy Franklin RN August 24, 2022 10:18 AM [facility] 08-24-2022 History of Present illness Narrative CDM Telephonic Outreach Provider Action/FYI -htn Contacted for: Routine Telephonic Outreach Contact made with patient: No, left message. Daisy Franklin RN August 24, 2022 10:18 AM documented in this encounter [facility] 08-23-2022 Note HNO ID: [id number] Author: Daisy Franklin RN Service: ? Author Type: Registered Nurse Type: Progress Notes Filed: 08/23/2022 3:40 PM Note Text: CDM Telephonic Outreach Provider Action/FYI -htn Contacted for: Routine Telephonic Outreach Contact made with patient: No, left message. Daisy Franklin RN August 23, 2022 3:40 PM [facility] 08-23-2022 History of Present illness Narrative CDM Telephonic Outreach Provider Action/FYI -htn Contacted for: Routine Telephonic Outreach Contact made with patient: No, left message. Daisy Franklin RN August 23, 2022 3:40 PM documented in this encounter [facility] 08-23-2022 Note Patient Outreach (AM BC) MONA JANSEN ([id number]) 1940 F [facility] Date Time Provider Department 08/23/22 DAISY FRANKLIN During your visit today, we recorded the following information about you: Daisy Franklin RN 08/23/2022 3:40 PM Signed CDM Telephonic Outreach Provider Action/FYI -htn Contacted for: Routine Telephonic Outreach Contact made with patient: No, left message. Daisy Franklin RN August 23, 2022 3:40 PM Allergies As of Date: 08/23/2022 Noted Allergy Reaction AUGMENTIN (AMOXICILLIN-POT CLAVUL*05/17/2012 8 - GI Upset GRASS POLLEN 10/09/2013 16 - Unknown IODINE (CONTRAST DYE) 02/01/2005 Comments: hypotension MOLD 10/09/2013 16 - Unknown sodium pentothal [Other] 02/01/2005 Comments: tongue numbness THIOPENTAL 16 - Unknown TROSPIUM 10/31/2018 14 - Other: See Comments Comments: Leg weakness Date Reviewed: 03/30/2022 Reviewed by: Audrey Bowman - Fully Assessed Reason for Visit: Community Monitoring Outreach [Other] Cmt: CDM follow up Prescriptions as of 08/23/2022 - MEDICAL SUPPLY Tubigrip elastic support bandages to knees bilaterally to be worn daily for bilateral lower extremity edema. - pantoprazole DR (PROTONIX) 40 mg tablet Take 1 tablet by mouth once daily as needed. - fluticasone (FLONASE ALLERGY RELIEF) 50 mcg/actuation nasal spray Use 1 [place] in each nostril once daily. - albuterol HFA (VENTOLIN HFA) 90 mcg/actuation inhaler Inhale 2 Puffs as instructed every 6 hours as needed for wheezing/shortness of breath. as needed - BIPAP Formal mask refitting: Try New mask. Change pressure to BiPAP @ 9/6 cm of water with humidification. Mask (per patient preference) optional chin strap (if indicated) , filters, tubing, humidifier and lifetime supplies. - Cholecalciferol, Vitamin D3, 5,000 unit cap Take 1 capsule by mouth once daily. Meds Comments as of 05/11/2021: Takes Elderberry defense every day as of winter 201805/10/21 severe interaction: K/antivert Problem List As Of Date 08/23/2022 Noted Resolved OVERWEIGHT [E66.9] 11/10/2016 Essential hypertension [I10] Mixed hyperlipidemia [E78.2] GENERAL OSTEOARTHROSIS [M15.9] Swelling, mass, or lump in chest [R22.2] 06/06/2007 02/20/2010 HEMORRHOIDS NOS [K64.9] 07/06/2007 POSTNASAL DRIP [R09.82] 10/18/2007 PSVT (paroxysmal supraventricular tachycardia) *10/08/2013 Bradycardia [R00.1] 10/08/2013 GERD (gastroesophageal reflux disease) [K21.9] Sick sinus syndrome (HCC) [I49.5] 10/23/2013 Syncope and collapse [R55] 11/19/2013 Cardiac pacemaker in situ [Z95.0] 07/03/2014 Vitamin D deficiency [E55.9] 01/31/2015 Acute back pain with sciatica [M54.40] 06/05/2015 05/19/2021 Mild intermittent asthma without complication [*09/03/2015 Morbid obesity due to excess calories (HCC) [E6*09/14/2015 11/10/2016 Post herpetic neuralgia [B02.29] 07/15/2016 Morbid obesity with BMI of 40.0-44.9, adult (HC*11/10/2016 12/24/2016 Bilateral carotid artery stenosis [I65.23] 11/10/2016 Unsteady gait [R26.81] 11/19/2016 Generalized weakness [R53.1] 11/19/2016 Obesity (BMI 35.0-39.9 without comorbidity) [E6*12/24/2016 12/29/2016 Morbid obesity with BMI of 40.0-44.9, adult (HC* Benign paroxysmal vertigo of both ears [H81.13] 07/06/2017 Sepsis due to urinary tract infection (HCC) [A4*11/20/2017 11/26/2017 Hyponatremia [E87.1] 11/21/2017 11/26/2017 Weakness [R53.1] 11/21/2017 11/26/2017 RUPERT (acute kidney injury) (HCC) [N17.9] 11/21/2017 11/26/2017 Acute rhinosinusitis [J01.90] 11/21/2017 11/26/2017 Obesity, Class III, BMI >= 40 [E66.01] 11/21/2017 05/19/2021 Acute asthma exacerbation [J45.901] 11/26/2017 11/26/2017 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*04/01/2018 Status post total right knee replacement [Z96.6*04/01/2018 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.642] 04/01/2018 Lumbar degenerative disc disease [M51.36] 04/01/2018 Posterior tibial tendon dysfunction, left [M76.*04/01/2018 History of DVT (deep vein thrombosis) [Z86.718] 05/12/2018 Aftercare [Z51.89] 05/22/2018 Hematoma [T14.8XXA] 05/22/2018 Other pulmonary embolism without acute cor pulm*05/22/2018 05/19/2021 Acute blood loss anemia [D62] 05/22/2018 05/19/2021 Dyspnea on exertion [R06.09] 07/11/2018 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] DVT (deep venous thrombosis) (HCC) [I82.409] 05/02/2018 05/19/2021 History of pulmonary embolus (PE) [Z86.711] Cardiac pacemaker [Z95.0] Rotator cuff syndrome of right shoulder [M75.10*08/23/2018 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 [facility] 07-30-2022 Note HNO ID: [id number] Author: Daisy Franklin RN Service: ? Author Type: Registered Nurse Type: Progress Notes Filed: 07/30/2022 3:15 PM Note Text: INSIGHT CDM TELEPHONIC OUTREACH Provider Action/FYI: -htn, asthma Contact made with patient: No - Left message Hello my name is Daisy Franklin RN your Bench Repair Technician from the [facility] I am calling today for your bi-weekly check in. I am sorry I missed your call. I will reach out to you again tomorrow. (if the third call I will reach out to you again next week) Enter next patient outreach date for the following business day using the Track Pt Outreach. End outreach. [facility] 07-30-2022 History of Present illness Narrative [facility] TELEPHONIC OUTREACH Provider Action/FYI: -htn, asthma Contact made with patient: No - Left message Pati my name is Daisy Franklin RN your Bench Repair Technician from the [facility] I am calling today for your bi-weekly check in. I am sorry I missed your call. I will reach out to you again tomorrow. (if the third call I will reach out to you again next week) Enter next patient outreach date for the following business day using the Track Pt Outreach. End outreach. documented in this encounter [facility] 07-30-2022 Note Patient Outreach (AM BCMG) MONA JANSEN ([id number]) 1940 F [facility] Date Time Provider Department 07/30/22 DAISY FRANKLIN During your visit today, we recorded the following information about you: Daisy Franklin RN 07/30/2022 3:15 PM Signed [facility] TELEPHONIC OUTREACH Provider Action/FYI: -htn, asthma Contact made with patient: No - Left message Pati my name is Daisy Franklin RN your Bench Repair Technician from the [facility] I am calling today for your bi-weekly check in. I am sorry I missed your call. I will reach out to you again tomorrow. (if the third call I will reach out to you again next week) Enter next patient outreach date for the following business day using the Track Pt Outreach. End outreach. Allergies As of Date: 07/30/2022 Noted Allergy Reaction AUGMENTIN (AMOXICILLIN-POT CLAVUL*05/17/2012 8 - GI Upset GRASS POLLEN 10/09/2013 16 - Unknown IODINE (CONTRAST DYE) 02/01/2005 Comments: hypotension MOLD 10/09/2013 16 - Unknown sodium pentothal [Other] 02/01/2005 Comments: tongue numbness THIOPENTAL 16 - Unknown TROSPIUM 10/31/2018 14 - Other: See Comments Comments: Leg weakness Date Reviewed: 03/30/2022 Reviewed by: Audrey Bowman - Fully Assessed Reason for Visit: Communtiy Monitoring Outreach [Other] Cmt: CDM follow up Prescriptions as of 07/30/2022 - MEDICAL SUPPLY Tubigrip elastic support bandages to knees bilaterally to be worn daily for bilateral lower extremity edema. - pantoprazole DR (PROTONIX) 40 mg tablet Take 1 tablet by mouth once daily as needed. - fluticasone (FLONASE ALLERGY RELIEF) 50 mcg/actuation nasal spray Use 1 [place] in each nostril once daily. - albuterol HFA (VENTOLIN HFA) 90 mcg/actuation inhaler Inhale 2 Puffs as instructed every 6 hours as needed for wheezing/shortness of breath. as needed - BIPAP Formal mask refitting: Try New mask. Change pressure to BiPAP @ 9/6 cm of water with humidification. Mask (per patient preference) optional chin strap (if indicated) , filters, tubing, humidifier and lifetime supplies. - Cholecalciferol, Vitamin D3, 5,000 unit cap Take 1 capsule by mouth once daily. Meds Comments as of 05/11/2021: Takes [employer] [place] defense every day as of winter 201805/10/21 severe interaction: K/antivert Problem List As Of Date 07/30/2022 Noted Resolved OVERWEIGHT [E66.9] 11/10/2016 Essential hypertension [I10] Mixed hyperlipidemia [E78.2] GENERAL OSTEOARTHROSIS [M15.9] Swelling, mass, or lump in chest [R22.2] 06/06/2007 02/20/2010 HEMORRHOIDS NOS [K64.9] 07/06/2007 POSTNASAL DRIP [R09.82] 10/18/2007 PSVT (paroxysmal supraventricular tachycardia) *10/08/2013 Bradycardia [R00.1] 10/08/2013 GERD (gastroesophageal reflux disease) [K21.9] Sick sinus syndrome (HCC) [I49.5] 10/23/2013 Syncope and collapse [R55] 11/19/2013 Cardiac pacemaker in situ [Z95.0] 07/03/2014 Vitamin D deficiency [E55.9] 01/31/2015 Acute back pain with sciatica [M54.40] 06/05/2015 05/19/2021 Mild intermittent asthma without complication [*09/03/2015 Morbid obesity due to excess calories (HCC) [E6*09/14/2015 11/10/2016 Post herpetic neuralgia [B02.29] 07/15/2016 Morbid obesity with BMI of 40.0-44.9, adult (HC*11/10/2016 12/24/2016 Bilateral carotid artery stenosis [I65.23] 11/10/2016 Unsteady gait [R26.81] 11/19/2016 Generalized weakness [R53.1] 11/19/2016 Obesity (BMI 35.0-39.9 without comorbidity) [E6*12/24/2016 12/29/2016 Morbid obesity with BMI of 40.0-44.9, adult (HC* Benign paroxysmal vertigo of both ears [H81.13] 07/06/2017 Sepsis due to urinary tract infection (HCC) [A4*11/20/2017 11/26/2017 Hyponatremia [E87.1] 11/21/2017 11/26/2017 Weakness [R53.1] 11/21/2017 11/26/2017 RUPERT (acute kidney injury) (HCC) [N17.9] 11/21/2017 11/26/2017 Acute rhinosinusitis [J01.90] 11/21/2017 11/26/2017 Obesity, Class III, BMI >= 40 [E66.01] 11/21/2017 05/19/2021 Acute asthma exacerbation [J45.901] 11/26/2017 11/26/2017 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*04/01/2018 Status post total right knee replacement [Z96.6*04/01/2018 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.642] 04/01/2018 Lumbar degenerative disc disease [M51.36] 04/01/2018 Posterior tibial tendon dysfunction, left [M76.*04/01/2018 History of DVT (deep vein thrombosis) [Z86.718] 05/12/2018 Aftercare [Z51.89] 05/22/2018 Hematoma [T14.8XXA] 05/22/2018 Other pulmonary embolism without acute cor pulm*05/22/2018 05/19/2021 Acute blood loss anemia [D62] 05/22/2018 05/19/2021 Dyspnea on exertion [R06.09] 07/11/2018 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] DVT (deep venous thrombosis) (HCC) [I82.409] 05/02/2018 05/19/2021 History of pulmonary embolus (PE) [Z86.711] Cardiac pacemaker [Z95.0] Rotator cuff syndrome of right shoulder [M75.10*08/23/2018 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 [facility] 07-20-2022 Note Patient Outreach (AM BC) MONA JANSEN ([id number]) 1940 F [facility] Date Time Provider Department 07/20/22 DAISY FRANKLIN During your visit today, we recorded the following information about you: Daisy Franklin RN 07/20/2022 10:38 AM Signed [facility] TELEPHONIC OUTREACH Provider Action/FYI: -htn Contact made with patient: No - Left message Helrayshawn my name is Daisy Franklin RN your Bench Repair Technician from the [facility] I am calling today for your bi-weekly check in. I am sorry I missed your call. I will reach out to you again tomorrow. (if the third call I will reach out to you again next week) Enter next patient outreach date for the following day using the Track Pt Outreach. End outreach. Allergies As of Date: 07/20/2022 Noted Allergy Reaction AUGMENTIN (AMOXICILLIN-POT CLAVUL*05/17/2012 8 - GI Upset GRASS POLLEN 10/09/2013 16 - Unknown IODINE (CONTRAST DYE) 02/01/2005 Comments: hypotension MOLD 10/09/2013 16 - Unknown sodium pentothal [Other] 02/01/2005 Comments: tongue numbness THIOPENTAL 16 - Unknown TROSPIUM 10/31/2018 14 - Other: See Comments Comments: Leg weakness Date Reviewed: 03/30/2022 Reviewed by: Audrey Bowman - Fully Assessed Reason for Visit: Community Monitoring Outreach [Other] Cmt: CDM follow up Prescriptions as of 07/20/2022 - MEDICAL SUPPLY Tubigrip elastic support bandages to knees bilaterally to be worn daily for bilateral lower extremity edema. - pantoprazole DR (PROTONIX) 40 mg tablet Take 1 tablet by mouth once daily as needed. - fluticasone (FLONASE ALLERGY RELIEF) 50 mcg/actuation nasal spray Use 1 [place] in each nostril once daily. - albuterol HFA (VENTOLIN HFA) 90 mcg/actuation inhaler Inhale 2 Puffs as instructed every 6 hours as needed for wheezing/shortness of breath. as needed - BIPAP Formal mask refitting: Try New mask. Change pressure to BiPAP @ 9/6 cm of water with humidification. Mask (per patient preference) optional chin strap (if indicated) , filters, tubing, humidifier and lifetime supplies. - Cholecalciferol, Vitamin D3, 5,000 unit cap Take 1 capsule by mouth once daily. Meds Comments as of 05/11/2021: Takes Elderberry defense every day as of winter 201805/10/21 severe interaction: K/antivert Problem List As Of Date 07/20/2022 Noted Resolved OVERWEIGHT [E66.9] 11/10/2016 Essential hypertension [I10] Mixed hyperlipidemia [E78.2] GENERAL OSTEOARTHROSIS [M15.9] Swelling, mass, or lump in chest [R22.2] 06/06/2007 02/20/2010 HEMORRHOIDS NOS [K64.9] 07/06/2007 POSTNASAL DRIP [R09.82] 10/18/2007 PSVT (paroxysmal supraventricular tachycardia) *10/08/2013 Bradycardia [R00.1] 10/08/2013 GERD (gastroesophageal reflux disease) [K21.9] Sick sinus syndrome (HCC) [I49.5] 10/23/2013 Syncope and collapse [R55] 11/19/2013 Cardiac pacemaker in situ [Z95.0] 07/03/2014 Vitamin D deficiency [E55.9] 01/31/2015 Acute back pain with sciatica [M54.40] 06/05/2015 05/19/2021 Mild intermittent asthma without complication [*09/03/2015 Morbid obesity due to excess calories (HCC) [E6*09/14/2015 11/10/2016 Post herpetic neuralgia [B02.29] 07/15/2016 Morbid obesity with BMI of 40.0-44.9, adult (HC*11/10/2016 12/24/2016 Bilateral carotid artery stenosis [I65.23] 11/10/2016 Unsteady gait [R26.81] 11/19/2016 Generalized weakness [R53.1] 11/19/2016 Obesity (BMI 35.0-39.9 without comorbidity) [E6*12/24/2016 12/29/2016 Morbid obesity with BMI of 40.0-44.9, adult (HC* Benign paroxysmal vertigo of both ears [H81.13] 07/06/2017 Sepsis due to urinary tract infection (HCC) [A4*11/20/2017 11/26/2017 Hyponatremia [E87.1] 11/21/2017 11/26/2017 Weakness [R53.1] 11/21/2017 11/26/2017 RUPERT (acute kidney injury) (HCC) [N17.9] 11/21/2017 11/26/2017 Acute rhinosinusitis [J01.90] 11/21/2017 11/26/2017 Obesity, Class III, BMI >= 40 [E66.01] 11/21/2017 05/19/2021 Acute asthma exacerbation [J45.901] 11/26/2017 11/26/2017 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*04/01/2018 Status post total right knee replacement [Z96.6*04/01/2018 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.642] 04/01/2018 Lumbar degenerative disc disease [M51.36] 04/01/2018 Posterior tibial tendon dysfunction, left [M76.*04/01/2018 History of DVT (deep vein thrombosis) [Z86.718] 05/12/2018 Aftercare [Z51.89] 05/22/2018 Hematoma [T14.8XXA] 05/22/2018 Other pulmonary embolism without acute cor pulm*05/22/2018 05/19/2021 Acute blood loss anemia [D62] 05/22/2018 05/19/2021 Dyspnea on exertion [R06.09] 07/11/2018 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] DVT (deep venous thrombosis) (HCC) [I82.409] 05/02/2018 05/19/2021 History of pulmonary embolus (PE) [Z86.711] Cardiac pacemaker [Z95.0] Rotator cuff syndrome of right shoulder [M75.10*08/23/2018 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 [facility] 07-20-2022 Note HNO ID: [id number] Author: Daisy Franklin RN Service: ? Author Type: Registered Nurse Type: Progress Notes Filed: 07/20/2022 10:38 AM Note Text: ÁNGEL KANG TELEPHONIC OUTREACH Provider Action/FYI: -htn Contact made with patient: No - Left message Pati my name is Daisy Franklin RN your Bench Repair Technician from the [facility] I am calling today for your bi-weekly check in. I am sorry I missed your call. I will reach out to you again tomorrow. (if the third call I will reach out to you again next week) Enter next patient outreach date for the following business day using the Track Pt Outreach. End outreach. [facility] 07-20-2022 History of Present illness Narrative ÁNGEL ROBERTS TELEPHONIC OUTREACH Provider Action/FYI: -htn Contact made with patient: No - Left message Pati my name is Daisy Franklin RN your Bench Repair Technician from the [facility] I am calling today for your bi-weekly check in. I am sorry I missed your call. I will reach out to you again tomorrow. (if the third call I will reach out to you again next week) Enter next patient outreach date for the following business day using the Track Pt Outreach. End outreach. documented in this encounter [facility] 07-19-2022 Note HNO ID: [id number] Author: Daisy Franklin RN Service: ? Author Type: Registered Nurse Type: Progress Notes Filed: 07/19/2022 1:53 PM Note Text: Navita [facility] TELEPHONIC OUTREACH Provider Action/FYI: -htn Contact made with patient: No - Left message Pati my name is Daisy Franklin RN your Bench Repair Technician from the [facility] I am calling today for your bi-weekly check in. I am sorry I missed your call. I will reach out to you again tomorrow. (if the third call I will reach out to you again next week) Enter next patient outreach date for the following business day using the Track Pt Outreach. End outreach. [facility] 07-19-2022 Note Patient Outreach (AM [facility]CM[facility]) MONA JANSEN ([id number]) 1940 F [facility] Date Time Provider Department 07/19/22 DAISY FRANKLIN During your visit today, we recorded the following information about you: Daisy Franklin RN 07/19/2022 1:53 PM Signed Navita [facility] TELEPHONIC OUTREACH Provider Action/FYI: -htn Contact made with patient: No - Left message Pati my name is Daisy Franklin RN your Bench Repair Technician from the [facility] I am calling today for your bi-weekly check in. I am sorry I missed your call. I will reach out to you again tomorrow. (if the third call I will reach out to you again next week) Enter next patient outreach date for the following day using the Track Pt Outreach. End outreach. Allergies As of Date: 07/19/2022 Noted Allergy Reaction AUGMENTIN (AMOXICILLIN-POT CLAVUL*05/17/2012 8 - GI Upset GRASS POLLEN 10/09/2013 16 - Unknown IODINE (CONTRAST DYE) 02/01/2005 Comments: hypotension MOLD 10/09/2013 16 - Unknown sodium pentothal [Other] 02/01/2005 Comments: tongue numbness THIOPENTAL 16 - Unknown TROSPIUM 10/31/2018 14 - Other: See Comments Comments: Leg weakness Date Reviewed: 03/30/2022 Reviewed by: Audrey Bowman - Fully Assessed Reason for Visit: Community Monitoring Outreach [Other] Cmt: CDM follow up Prescriptions as of 07/19/2022 - MEDICAL SUPPLY Tubigrip elastic support bandages to knees bilaterally to be worn daily for bilateral lower extremity edema. - pantoprazole DR (PROTONIX) 40 mg tablet Take 1 tablet by mouth once daily as needed. - fluticasone (FLONASE ALLERGY RELIEF) 50 mcg/actuation nasal spray Use 1 [place] in each nostril once daily. - albuterol HFA (VENTOLIN HFA) 90 mcg/actuation inhaler Inhale 2 Puffs as instructed every 6 hours as needed for wheezing/shortness of breath. as needed - BIPAP Formal mask refitting: Try New mask. Change pressure to BiPAP @ 9/6 cm of water with humidification. Mask (per patient preference) optional chin strap (if indicated) , filters, tubing, humidifier and lifetime supplies. - Cholecalciferol, Vitamin D3, 5,000 unit cap Take 1 capsule by mouth once daily. Meds Comments as of 05/11/2021: Takes Elderberry defense every day as of winter 201805/10/21 severe interaction: K/antivert Problem List As Of Date 07/19/2022 Noted Resolved OVERWEIGHT [E66.9] 11/10/2016 Essential hypertension [I10] Mixed hyperlipidemia [E78.2] GENERAL OSTEOARTHROSIS [M15.9] Swelling, mass, or lump in chest [R22.2] 06/06/2007 02/20/2010 HEMORRHOIDS NOS [K64.9] 07/06/2007 POSTNASAL DRIP [R09.82] 10/18/2007 PSVT (paroxysmal supraventricular tachycardia) *10/08/2013 Bradycardia [R00.1] 10/08/2013 GERD (gastroesophageal reflux disease) [K21.9] Sick sinus syndrome (HCC) [I49.5] 10/23/2013 Syncope and collapse [R55] 11/19/2013 Cardiac pacemaker in situ [Z95.0] 07/03/2014 Vitamin D deficiency [E55.9] 01/31/2015 Acute back pain with sciatica [M54.40] 06/05/2015 05/19/2021 Mild intermittent asthma without complication [*09/03/2015 Morbid obesity due to excess calories (HCC) [E6*09/14/2015 11/10/2016 Post herpetic neuralgia [B02.29] 07/15/2016 Morbid obesity with BMI of 40.0-44.9, adult (HC*11/10/2016 12/24/2016 Bilateral carotid artery stenosis [I65.23] 11/10/2016 Unsteady gait [R26.81] 11/19/2016 Generalized weakness [R53.1] 11/19/2016 Obesity (BMI 35.0-39.9 without comorbidity) [E6*12/24/2016 12/29/2016 Morbid obesity with BMI of 40.0-44.9, adult (HC* Benign paroxysmal vertigo of both ears [H81.13] 07/06/2017 Sepsis due to urinary tract infection (HCC) [A4*11/20/2017 11/26/2017 Hyponatremia [E87.1] 11/21/2017 11/26/2017 Weakness [R53.1] 11/21/2017 11/26/2017 RUPERT (acute kidney injury) (HCC) [N17.9] 11/21/2017 11/26/2017 Acute rhinosinusitis [J01.90] 11/21/2017 11/26/2017 Obesity, Class III, BMI >= 40 [E66.01] 11/21/2017 05/19/2021 Acute asthma exacerbation [J45.901] 11/26/2017 11/26/2017 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*04/01/2018 Status post total right knee replacement [Z96.6*04/01/2018 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.642] 04/01/2018 Lumbar degenerative disc disease [M51.36] 04/01/2018 Posterior tibial tendon dysfunction, left [M76.*04/01/2018 History of DVT (deep vein thrombosis) [Z86.718] 05/12/2018 Aftercare [Z51.89] 05/22/2018 Hematoma [T14.8XXA] 05/22/2018 Other pulmonary embolism without acute cor pulm*05/22/2018 05/19/2021 Acute blood loss anemia [D62] 05/22/2018 05/19/2021 Dyspnea on exertion [R06.09] 07/11/2018 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] DVT (deep venous thrombosis) (HCC) [I82.409] 05/02/2018 05/19/2021 History of pulmonary embolus (PE) [Z86.711] Cardiac pacemaker [Z95.0] Rotator cuff syndrome of right shoulder [M75.10*08/23/2018 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 [facility] 07-19-2022 History of Present illness Narrative ÁNGEL [facility] TELEPHONIC OUTREACH Provider Action/FYI: -htn Contact made with patient: No - Left message Hello my name is Daisy Franklin RN your Bench Repair Technician from the [facility] I am calling today for your bi-weekly check in. I am sorry I missed your call. I will reach out to you again tomorrow. (if the third call I will reach out to you again next week) Enter next patient outreach date for the following business day using the Track Pt Outreach. End outreach. documented in this encounter [facility] 06-22-2022 Note HNO ID: [id number] Author: Daisy Franklin RN Service: ? Author Type: Registered Nurse Type: Progress Notes Filed: 06/22/2022 12:40 PM Note Text: ÁNGEL Bhavya TELEPHONIC OUTREACH Provider Action/FYI: -asthma, htn Contact made with patient: No - Left message Hello my name is Daisy Franklin RN your Bench Repair Technician from the [facility] I am calling today for your bi-weekly check in. I am sorry I missed your call. I will reach out to you again tomorrow. (if the third call I will reach out to you again next week) Enter next patient outreach date for the following business day using the Track Pt Outreach. End outreach. [facility] 06-22-2022 Note Patient Outreach (AM B[facility]) MONA JANSEN ([id number]) 1940 [facility] Date Time Provider Department 06/22/22 DAISY FRANKLIN During your visit today, we recorded the following information about you: Daisy Franklin RN 06/22/2022 12:40 PM Signed [facility] TELEPHONIC OUTREACH Provider Action/I: -asthma, htn Contact made with patient: No - Left message Pati my name is Daisy Franklin RN your Bench Repair Technician from the [facility] I am calling today for your bi-weekly check in. I am sorry I missed your call. I will reach out to you again tomorrow. (if the third call I will reach out to you again next week) Enter next patient outreach date for the following business day using the Track Pt Outreach. End outreach. 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 - pantoprazole DR (PROTONIX) 40 mg tablet Take 1 tablet by mouth once daily as needed. - fluticasone (FLONASE ALLERGY RELIEF) 50 mcg/actuation nasal spray Use 1 [place] in each nostril once daily. - albuterol HFA (VENTOLIN HFA) 90 mcg/actuation inhaler Inhale 2 Puffs as instructed every 6 hours as needed for wheezing/shortness of breath. as needed - BIPAP Formal mask refitting: Try New mask. Change pressure to BiPAP @ 9/6 cm of water with humidification. Mask (per patient preference) optional chin strap (if indicated) , filters, tubing, humidifier and lifetime supplies. - Cholecalciferol, Vitamin D3, 5,000 unit cap Take 1 capsule by mouth once daily. Meds Comments as of 05/11/2021: Takes [employer] [place] defense every day as of winter 201805/10/21 severe interaction: K/antivert Problem List As Of Date 06/22/2022 Noted Resolved OVERWEIGHT [E66.9] 11/10/2016 Essential hypertension [I10] Mixed hyperlipidemia [E78.2] GENERAL OSTEOARTHROSIS [M15.9] Swelling, mass, or lump in chest [R22.2] 06/06/2007 02/20/2010 HEMORRHOIDS NOS [K64.9] 07/06/2007 POSTNASAL DRIP [R09.82] 10/18/2007 PSVT (paroxysmal supraventricular tachycardia) *10/08/2013 Bradycardia [R00.1] 10/08/2013 GERD (gastroesophageal reflux disease) [K21.9] Sick sinus syndrome (HCC) [I49.5] 10/23/2013 Syncope and collapse [R55] 11/19/2013 Cardiac pacemaker in situ [Z95.0] 07/03/2014 Vitamin D deficiency [E55.9] 01/31/2015 Acute back pain with sciatica [M54.40] 06/05/2015 05/19/2021 Mild intermittent asthma without complication [*09/03/2015 Morbid obesity due to excess calories (HCC) [E6*09/14/2015 11/10/2016 Post herpetic neuralgia [B02.29] 07/15/2016 Morbid obesity with BMI of 40.0-44.9, adult (HC*11/10/2016 12/24/2016 Bilateral carotid artery stenosis [I65.23] 11/10/2016 Unsteady gait [R26.81] 11/19/2016 Generalized weakness [R53.1] 11/19/2016 Obesity (BMI 35.0-39.9 without comorbidity) [E6*12/24/2016 12/29/2016 Morbid obesity with BMI of 40.0-44.9, adult (HC* Benign paroxysmal vertigo of both ears [H81.13] 07/06/2017 Sepsis due to urinary tract infection (HCC) [A4*11/20/2017 11/26/2017 Hyponatremia [E87.1] 11/21/2017 11/26/2017 Weakness [R53.1] 11/21/2017 11/26/2017 RUPERT (acute kidney injury) (HCC) [N17.9] 11/21/2017 11/26/2017 Acute rhinosinusitis [J01.90] 11/21/2017 11/26/2017 Obesity, Class III, BMI >= 40 [E66.01] 11/21/2017 05/19/2021 Acute asthma exacerbation [J45.901] 11/26/2017 11/26/2017 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*04/01/2018 Status post total right knee replacement [Z96.6*04/01/2018 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.642] 04/01/2018 Lumbar degenerative disc disease [M51.36] 04/01/2018 Posterior tibial tendon dysfunction, left [M76.*04/01/2018 History of DVT (deep vein thrombosis) [Z86.718] 05/12/2018 Aftercare [Z51.89] 05/22/2018 Hematoma [T14.8XXA] 05/22/2018 Other pulmonary embolism without acute cor pulm*05/22/2018 05/19/2021 Acute blood loss anemia [D62] 05/22/2018 05/19/2021 Dyspnea on exertion [R06.09] 07/11/2018 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] DVT (deep venous thrombosis) (HCC) [I82.409] 05/02/2018 05/19/2021 History of pulmonary embolus (PE) [Z86.711] Cardiac pacemaker [Z95.0] Rotator cuff syndrome of right shoulder [M75.10*08/23/2018 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 [facility] 06-22-2022 History of Present illness Narrative [facility] TELEPHONIC OUTREACH Provider Action/FYI: -asthma, htn Contact made with patient: No - Left message Pati my name is Daisy Franklin RN your Bench Repair Technician from the [facility] I am calling today for your bi-weekly check in. I am sorry I missed your call. I will reach out to you again tomorrow. (if the third call I will reach out to you again next week) Enter next patient outreach date for the following business day using the Track Pt Outreach. End outreach. documented in this encounter [facility] 06-10-2022 Note HNO ID: [id number] Author: Daisy Franklin RN Service: ? Author Type: Registered Nurse Type: Progress Notes Filed: 06/10/2022 12:14 PM Note Text: ÁNGEL [facility] TELEPHONIC OUTREACH Provider Action/FYI: -ashtma, htn Contact made with patient: No - Left message Pati my name is Daisy Franklin RN your Bench Repair Technician from the [facility] I am calling today for your bi-weekly check in. I am sorry I missed your call. I will reach out to you again tomorrow. (if the third call I will reach out to you again next week) Enter next patient outreach date for the following business day using the Track Pt Outreach. End outreach. [facility] 06-10-2022 Note Patient Outreach (AM BCMG) MONA JANSEN ([id number]) 1940 F [place] Date Time Provider Department 06/10/22 DAISY FRANKLIN During your visit today, we recorded the following information about you: Daisy Franklin RN 06/10/2022 12:14 PM Signed INSIGHT [facility] TELEPHONIC OUTREACH Provider Action/FYI: -luh amin Contact made with patient: No - Left message Hello my name is Daisy Franklin RN your Bench Repair Technician from the [facility] I am calling today for your bi-weekly check in. I am sorry I missed your call. I will reach out to you again tomorrow. (if the third call I will reach out to you again next week) Enter next patient outreach date for the following day using the Track Pt Outreach. End outreach. Allergies As of Date: 06/10/2022 Noted Allergy Reaction AUGMENTIN (AMOXICILLIN-POT CLAVUL*05/17/2012 8 - GI Upset GRASS POLLEN 10/09/2013 16 - Unknown IODINE (CONTRAST DYE) 02/01/2005 Comments: hypotension MOLD 10/09/2013 16 - Unknown sodium pentothal [Other] 02/01/2005 Comments: tongue numbness THIOPENTAL 16 - Unknown TROSPIUM 10/31/2018 14 - Other: See Comments Comments: Leg weakness Date Reviewed: 03/30/2022 Reviewed by: Audrey Bowman - Fully Assessed Reason for Visit: Community Monitoring Outreach [Other] Cmt: [facility] follow up Prescriptions as of 06/10/2022 - MEDICAL SUPPLY Tubigrip elastic support bandages to knees bilaterally to be worn daily for bilateral lower extremity edema. - pantoprazole DR (PROTONIX) 40 mg tablet Take 1 tablet by mouth once daily as needed. - fluticasone (FLONASE ALLERGY RELIEF) 50 mcg/actuation nasal spray Use 1 [place] in each nostril once daily. - albuterol HFA (VENTOLIN HFA) 90 mcg/actuation inhaler Inhale 2 Puffs as instructed every 6 hours as needed for wheezing/shortness of breath. as needed - BIPAP Formal mask refitting: Try New mask. Change pressure to BiPAP @ 9/6 cm of water with humidification. Mask (per patient preference) optional chin strap (if indicated) , filters, tubing, humidifier and lifetime supplies. - Cholecalciferol, Vitamin D3, 5,000 unit cap Take 1 capsule by mouth once daily. Meds Comments as of 05/11/2021: Takes Elderberry defense every day as of winter 201805/10/21 severe interaction: K/antivert Problem List As Of Date 06/10/2022 Noted Resolved OVERWEIGHT [E66.9] 11/10/2016 Essential hypertension [I10] Mixed hyperlipidemia [E78.2] GENERAL OSTEOARTHROSIS [M15.9] Swelling, mass, or lump in chest [R22.2] 06/06/2007 02/20/2010 HEMORRHOIDS NOS [K64.9] 07/06/2007 POSTNASAL DRIP [R09.82] 10/18/2007 PSVT (paroxysmal supraventricular tachycardia) *10/08/2013 Bradycardia [R00.1] 10/08/2013 GERD (gastroesophageal reflux disease) [K21.9] Sick sinus syndrome (HCC) [I49.5] 10/23/2013 Syncope and collapse [R55] 11/19/2013 Cardiac pacemaker in situ [Z95.0] 07/03/2014 Vitamin D deficiency [E55.9] 01/31/2015 Acute back pain with sciatica [M54.40] 06/05/2015 05/19/2021 Mild intermittent asthma without complication [*09/03/2015 Morbid obesity due to excess calories (HCC) [E6*09/14/2015 11/10/2016 Post herpetic neuralgia [B02.29] 07/15/2016 Morbid obesity with BMI of 40.0-44.9, adult (HC*11/10/2016 12/24/2016 Bilateral carotid artery stenosis [I65.23] 11/10/2016 Unsteady gait [R26.81] 11/19/2016 Generalized weakness [R53.1] 11/19/2016 Obesity (BMI 35.0-39.9 without comorbidity) [E6*12/24/2016 12/29/2016 Morbid obesity with BMI of 40.0-44.9, adult (HC* Benign paroxysmal vertigo of both ears [H81.13] 07/06/2017 Sepsis due to urinary tract infection (HCC) [A4*11/20/2017 11/26/2017 Hyponatremia [E87.1] 11/21/2017 11/26/2017 Weakness [R53.1] 11/21/2017 11/26/2017 RUPERT (acute kidney injury) (HCC) [N17.9] 11/21/2017 11/26/2017 Acute rhinosinusitis [J01.90] 11/21/2017 11/26/2017 Obesity, Class III, BMI >= 40 [E66.01] 11/21/2017 05/19/2021 Acute asthma exacerbation [J45.901] 11/26/2017 11/26/2017 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*04/01/2018 Status post total right knee replacement [Z96.6*04/01/2018 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.642] 04/01/2018 Lumbar degenerative disc disease [M51.36] 04/01/2018 Posterior tibial tendon dysfunction, left [M76.*04/01/2018 History of DVT (deep vein thrombosis) [Z86.718] 05/12/2018 Aftercare [Z51.89] 05/22/2018 Hematoma [T14.8XXA] 05/22/2018 Other pulmonary embolism without acute cor pulm*05/22/2018 05/19/2021 Acute blood loss anemia [D62] 05/22/2018 05/19/2021 Dyspnea on exertion [R06.09] 07/11/2018 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] DVT (deep venous thrombosis) (HCC) [I82.409] 05/02/2018 05/19/2021 History of pulmonary embolus (PE) [Z86.711] Cardiac pacemaker [Z95.0] Rotator cuff syndrome of right shoulder [M75.10*08/23/2018 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 [facility] 06-10-2022 History of Present illness Narrative [facility] TELEPHONIC OUTREACH Provider Action/FYI: -ashtma, htn Contact made with patient: No - Left message Pati my name is Daisy Franklin RN your Bench Repair Technician from the [facility] I am calling today for your bi-weekly check in. I am sorry I missed your call. I will reach out to you again tomorrow. (if the third call I will reach out to you again next week) Enter next patient outreach date for the following business day using the Track Pt Outreach. End outreach. documented in this encounter [facility] 06-09-2022 Note HNO ID: [id number] Author: Daisy Franklin RN Service: ? Author Type: Registered Nurse Type: Progress Notes Filed: 06/09/2022 1:50 PM Note Text: ÁNGEL [facility] TELEPHONIC OUTREACH Provider Action/FYI: -asthma, htn Contact made with patient: No - Left message Pati my name is Daisy Franklin RN your Bench Repair Technician from the [facility] I am calling today for your bi-weekly check in. I am sorry I missed your call. I will reach out to you again tomorrow. (if the third call I will reach out to you again next week) Enter next patient outreach date for the following business day using the Track Pt Outreach. End outreach. [facility] 06-09-2022 Note Patient Outreach (AM BCMG) MONA JANSEN ([id number]) 1940 F [facility] Date Time Provider Department 06/09/22 DAISY FRANKLIN During your visit today, we recorded the following information about you: Daisy Franklin RN 06/09/2022 1:50 PM Signed ÁNGEL KANG TELEPHONIC OUTREACH Provider Action/FYI: -asthma, htn Contact made with patient: No - Left message Pati my name is Daisy Franklin RN your Bench Repair Technician from the [facility] I am calling today for your bi-weekly check in. I am sorry I missed your call. I will reach out to you again tomorrow. (if the third call I will reach out to you again next week) Enter next patient outreach date for the following day using the Track Pt Outreach. End outreach. Allergies As of Date: 06/09/2022 Noted Allergy Reaction AUGMENTIN (AMOXICILLIN-POT CLAVUL*05/17/2012 8 - GI Upset GRASS POLLEN 10/09/2013 16 - Unknown IODINE (CONTRAST DYE) 02/01/2005 Comments: hypotension MOLD 10/09/2013 16 - Unknown sodium pentothal [Other] 02/01/2005 Comments: tongue numbness THIOPENTAL 16 - Unknown TROSPIUM 10/31/2018 14 - Other: See Comments Comments: Leg weakness Date Reviewed: 03/30/2022 Reviewed by: Audrey Bowman - Fully Assessed Reason for Visit: Community Monitoring Outreach [Other] Cmt: [facility] follow up Prescriptions as of 06/09/2022 - MEDICAL SUPPLY Tubigrip elastic support bandages to knees bilaterally to be worn daily for bilateral lower extremity edema. - pantoprazole DR (PROTONIX) 40 mg tablet Take 1 tablet by mouth once daily as needed. - fluticasone (FLONASE ALLERGY RELIEF) 50 mcg/actuation nasal spray Use 1 [place] in each nostril once daily. - albuterol HFA (VENTOLIN HFA) 90 mcg/actuation inhaler Inhale 2 Puffs as instructed every 6 hours as needed for wheezing/shortness of breath. as needed - BIPAP Formal mask refitting: Try New mask. Change pressure to BiPAP @ 9/6 cm of water with humidification. Mask (per patient preference) optional chin strap (if indicated) , filters, tubing, humidifier and lifetime supplies. - Cholecalciferol, Vitamin D3, 5,000 unit cap Take 1 capsule by mouth once daily. Meds Comments as of 05/11/2021: Takes Elderberry defense every day as of winter 201805/10/21 severe interaction: K/antivert Problem List As Of Date 06/09/2022 Noted Resolved OVERWEIGHT [E66.9] 11/10/2016 Essential hypertension [I10] Mixed hyperlipidemia [E78.2] GENERAL OSTEOARTHROSIS [M15.9] Swelling, mass, or lump in chest [R22.2] 06/06/2007 02/20/2010 HEMORRHOIDS NOS [K64.9] 07/06/2007 POSTNASAL DRIP [R09.82] 10/18/2007 PSVT (paroxysmal supraventricular tachycardia) *10/08/2013 Bradycardia [R00.1] 10/08/2013 GERD (gastroesophageal reflux disease) [K21.9] Sick sinus syndrome (HCC) [I49.5] 10/23/2013 Syncope and collapse [R55] 11/19/2013 Cardiac pacemaker in situ [Z95.0] 07/03/2014 Vitamin D deficiency [E55.9] 01/31/2015 Acute back pain with sciatica [M54.40] 06/05/2015 05/19/2021 Mild intermittent asthma without complication [*09/03/2015 Morbid obesity due to excess calories (HCC) [E6*09/14/2015 11/10/2016 Post herpetic neuralgia [B02.29] 07/15/2016 Morbid obesity with BMI of 40.0-44.9, adult (HC*11/10/2016 12/24/2016 Bilateral carotid artery stenosis [I65.23] 11/10/2016 Unsteady gait [R26.81] 11/19/2016 Generalized weakness [R53.1] 11/19/2016 Obesity (BMI 35.0-39.9 without comorbidity) [E6*12/24/2016 12/29/2016 Morbid obesity with BMI of 40.0-44.9, adult (HC* Benign paroxysmal vertigo of both ears [H81.13] 07/06/2017 Sepsis due to urinary tract infection (HCC) [A4*11/20/2017 11/26/2017 Hyponatremia [E87.1] 11/21/2017 11/26/2017 Weakness [R53.1] 11/21/2017 11/26/2017 RUPERT (acute kidney injury) (HCC) [N17.9] 11/21/2017 11/26/2017 Acute rhinosinusitis [J01.90] 11/21/2017 11/26/2017 Obesity, Class III, BMI >= 40 [E66.01] 11/21/2017 05/19/2021 Acute asthma exacerbation [J45.901] 11/26/2017 11/26/2017 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*04/01/2018 Status post total right knee replacement [Z96.6*04/01/2018 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.642] 04/01/2018 Lumbar degenerative disc disease [M51.36] 04/01/2018 Posterior tibial tendon dysfunction, left [M76.*04/01/2018 History of DVT (deep vein thrombosis) [Z86.718] 05/12/2018 Aftercare [Z51.89] 05/22/2018 Hematoma [T14.8XXA] 05/22/2018 Other pulmonary embolism without acute cor pulm*05/22/2018 05/19/2021 Acute blood loss anemia [D62] 05/22/2018 05/19/2021 Dyspnea on exertion [R06.09] 07/11/2018 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] DVT (deep venous thrombosis) (HCC) [I82.409] 05/02/2018 05/19/2021 History of pulmonary embolus (PE) [Z86.711] Cardiac pacemaker [Z95.0] Rotator cuff syndrome of right shoulder [M75.10*08/23/2018 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 [facility] 05-17-2022 History of Present illness Narrative [facility] CDM TELEPHONIC OUTREACH Provider Action/FYI: -asthma, htn Called patient to introduce myself as her new PCC. Went over health care goals, falls and ADLS. Patient states she still has a cold, PCP aware & gave her antibiotics. Patient has appt at [place] on 05/24 with ENT and is having CT scan to check sinuses. Reminded patient H@H number if she needs anything before that appt. Patient denies any other questions/concerns/needs. Reviewed upcoming appointments. Contact made with patient: Yes Patient identified by name and . Discussed care with patient It s nice talking to you again. As a reminder, this is our bi-weekly check-in where I will be asking you questions about your health. This will only take a few minutes of your time. Is this a good time? Yes Symptoms What Chronic Disease(s) does the patient have: asthma, htn Do you check your blood pressures at home? No Do you have new or worse shortness of breath with activity? No Are you having any other symptoms that your PCP needs to know about? No Symptom Escalation HARVINDER Education Ordered -: No The patient required an escalation for symptom(s)? No Medications Do you have any questions about taking your medication or which medications you should be on? No Do you need any medication refills at this time, including any of the medications you might take only when needed? No Social We would like to make sure you have what you need so that your basic needs are met- including your personal safety, food, housing and medications? Would you like to speak with a social work steam train driver to help give you support for any of these needs? No It can be normal to feel anxious or down during a time like this. Would you like to talk to a mental health professional about how you have been feeling? No Closing Thank you for taking the time to talk with me today. We want to work with you to ensure that we are keeping your medical condition(s) well-controlled and to keep you healthy and out of the doctor's office or hospital. It s also not too late for me to sign you up for automated weekly questionnaires through [employer]. This is an easy way for us to stay connected each week. Are you interested? No, I understand. We can always sign you up in the future if you change your mind. Just as a reminder, will continue to call you every other week to check in on your health. Our calls should take 10-15 minutes or less. Remember, if you have concerns in between our calls, please call your PCP's office right away. Thank you. Enter next patient outreach date for two weeks on the same day of the week as today in the Track Pt Outreach and End outreach. documented in this encounter [facility] 05-04-2022 Miscellaneous Notes TC to patient. Lost call, when calling patient back phone went straight to . Left message on patients secure regarding results below. Instructed to call back if has any further questions. Ellie White LPN ----- Message from Suze Wiseman MD sent at 05/04/2022 8:53 AM EST ----- Normal CXR. Continue supportive care as discussed in office. documented in this encounter [facility] 04-30-2022 History of Present illness Narrative Chief Complaint Patient presents with: Follow Up: 6 month- patient reports lingering URI x 3 weeks HPI Mona Jansen is a 81 year old female who presents here today for Above Complaints. Patient complaining today of URI symptoms x 3 weeks. Admits to productive cough with yellow sputum, nasal congestion, rhinorrhea, SOB with exertion, wheezing, chills, low grade fever 100, sinus pain/pressure, fatigue. Treating symptoms with Mucinex, Lauren, ibuprofen. Denies chest pain, sore throat, myalgias, lymphadenopathy, nausea, vomiting, diarrhea, loss of taste or smell. Did not test for COVID. Taking Protonix on a PRN basis for heartburn. Needs medication once every 2-3 weeks. Needs refill today. Asthma: Patient states that she has not been using her Symbicort since June. Has not needed rescue inhaler recently. No changes to regimen at appointment with Dr. Martins this month. Referred to ENT for evaluation of her sinuses. MONTRELL: controlled on Bipap nightly. Feels like her sinuses are plugged when using it. Past medical history, appointments, medications, allergies reviewed. Previous Medical History PAST MEDICAL HISTORY Diagnosis Date Asthma Seeing Dr. Martins Bilateral carotid artery stenosis Diaphragmatic hernia without mention of obstruction or gangrene DVT (deep venous thrombosis) ([facility]) 05/2018 Generalized osteoarthrosis, unspecified site GERD (gastroesophageal reflux disease) Hematoma Dr. Zelaya Hemorrhage of rectum and anus Morbid obesity ([facility]) MONTRELL (obstructive sleep apnea) Other and unspecified hyperlipidemia Overactive bladder Pacemaker Presence of IVC filter Pulmonary embolism ([facility]) Seasonal allergies Dr. Choi SSS (sick sinus syndrome) ([facility]) Seeing Dr. Polk Statin declined SVT (supraventricular tachycardia) ([facility]) Unspecified essential hypertension Urinary incontinence Dr. Serrato Vitamin D deficiency Previous Surgical History PAST SURGICAL HISTORY Procedure Laterality Date ANESTH,PACEMAKER INSERTION ARTHRP ACETBLR/PROX FEM PROSTC AGRFT/ALGRFT 08/13/2005 Hip replacement, total left ARTHRP KNE CONDYLE&PLATU MEDIAL&LAT COMPARTMENTS 04/05/2005 Knee replacement, total left ARTHRP KNE CONDYLE&PLATU MEDIAL&LAT COMPARTMENTS 01/2006 Knee replacement, total right COLONOSCOPY FLX DX W/COLLJ SPEC WHEN PFRMD 08/03/2007 COLONOSCOPY FLX DX W/COLLJ SPEC WHEN PFRMD 08/03/2007 Colonoscopy COLONOSCOPY FLX DX W/COLLJ SPEC WHEN PFRMD 09/18/2015 Colonoscopy (MAC) ESOPHAGOGASTRODUODENOSCOPY TRANSORAL DIAGNOSTIC 08/24/2011 EGD ESOPHAGOGASTRODUODENOSCOPY TRANSORAL DIAGNOSTIC 09/18/2015 EGD (MAC) IVC FILTER 05/2018 PAST SURGICAL HISTORY OF 10/2013 Pacer placement Family History FAMILY HISTORY Problem Relation Age of Onset Hypertension Mother Heart Mother AR at age 75 Heart Father AR at age 85, sudden Diabetes Sister Pacemaker; ?had mild AR Heart Sister Diabetes Maternal Uncle Parkinson s Disease Maternal Uncle Patient Allergies ALLERGIES Allergen Reactions Augmentin [Amoxicil* GI Upset Grass Pollen Unknown Iodine [Contrast Dy* hypotension Mold Unknown Sodium Pentothal [O* tongue numbness Thiopental Unknown Trospium Other: See Comments Leg weakness Current Medications Current Outpatient Medications on File Prior to Visit Medication Sig furosemide (LASIX) 20 mg tablet Take 1 tablet by mouth once daily. (Patient taking differently: Take 20 mg by mouth once daily. Course of therapy completed) MEDICAL SUPPLY Tubigrip elastic support bandages to knees bilaterally to be worn daily for bilateral lower extremity edema. pantoprazole DR (PROTONIX) 40 mg tablet Take 1 tablet by mouth once daily as needed. (Patient not taking: Reported on 03/30/2022) potassium chloride ER (K-DUR, KLOR-CON) 10 mEq tablet Take 1 tablet by mouth once daily. (Patient not taking: No sig reported) fluticasone (FLONASE ALLERGY RELIEF) 50 mcg/actuation nasal spray Use 1 [place] in each nostril once daily. albuterol HFA (VENTOLIN HFA) 90 mcg/actuation inhaler Inhale 2 Puffs as instructed every 6 hours as needed for wheezing/shortness of breath. as needed BIPAP Formal mask refitting: Try New mask. Change pressure to BiPAP @ 9/6 cm of water with humidification. Mask (per patient preference) optional chin strap (if indicated) , filters, tubing, humidifier and lifetime supplies. Cholecalciferol, Vitamin D3, 5,000 unit cap Take 1 capsule by mouth once daily. No current facility-administered medications on file prior to visit. Social History Social History Tobacco Use Smoking status: Never Smokeless tobacco: Never Vaping Use Vaping Use: Never used Substance Use Topics Alcohol use: Yes Comment: ocas-monthly Drug use: No Review of Symptoms REVIEW OF SYSTEMS See HPI EXAM: BP 126/68 Pulse 83 Temp 36.9 C (98.4 F) Resp 28 Wt 114.2 kg (251 lb 12.8 oz) SpO2 99% BMI 43.22 kg/m General Appearance: Ill appearing, non toxic. Skin: Skin color, texture, turgor normal, no suspicious rashes or lesions. Head: Normocephalic, no masses, lesions, tenderness or abnormalities. Eyes: Anicteric sclera. Pupils are equally round and reactive to light. Extraocular movements are intact. . Ears: External ears normal, canals clear, TMs normal. Nose/Sinuses: Positive findings: mucosa erythematous and swollen. Oropharynx: Lips, mucosa, and tongue normal, teeth and gums normal, oropharynx normal. Neck: Supple, no adenopathy; thyroid symmetric, normal size, no bruits. Lungs: Lungs clear to auscultation. No wheezing, rhonchi, rales.. Heart: RRR without murmur, gallop, or rubs. No ectopy. Abdomen: Normal abdominal exam, Abdomen soft, non-tender. Bowel sounds normal. No masses, organomegaly. Extremities: No deformities, edema, skin discoloration, clubbing or cyanosis. Good capillary refill. . Health Maintenance List BP CONTROLLED (<130/80) Never done SHINGRIX VACCINE(1 of 2) Never done ADVANCE DIRECTIVE DISCUSSION Never done DEPRESSION ASSESSMENT Never done INFLUENZA(1) due on 10/29/2022 COVID-19 VACCINE(4 - Booster for Pfizer series) due on 02/18/2023 ANNUAL PCP TEAM CHRONIC DISEASE VISIT due on 02/18/2023 DIABETES SCREEN due on 04/29/2025 DTAP,TDAP,TD(3 - Td or Tdap) due on 10/26/2028 BONE DENSITY Completed SPIROMETRY Completed PNEUMOCOCCAL: 65+ Completed Data reviewed Component Latest Ref Rng & Units 08/21/2021 04/29/2022 WBC 3.70 - 11.00 k/uL 6.31 6.11 RBC 3.90 - 5.20 m/uL 4.58 4.42 Hemoglobin 11.5 - 15.5 g/dL 13.2 12.9 Hematocrit 36.0 - 46.0 % 41.9 41.4 MCV 80.0 - 100.0 fL 91.5 93.7 MCH 26.0 - 34.0 pg 28.8 29.2 MCHC 30.5 - 36.0 g/dL 31.5 31.2 RDW-CV 11.5 - 15.0 % 13.3 13.1 Platelet Count 150 - 400 k/uL 190 187 MPV 9.0 - 12.7 fL 10.3 9.9 Neut% % 58.0 59.1 Abs Neut (ANC) 1.45 - 7.50 k/uL 3.66 3.61 Lymph% % 31.4 30.4 Abs Lymph 1.00 - 4.00 k/uL 1.98 1.86 Piatt% % 9.2 8.2 Abs Piatt <0.87 k/uL 0.58 0.50 Eosin% % 1.1 1.8 Abs Eosin <0.46 k/uL 0.07 0.11 Baso% % 0.3 0.3 Abs Baso <0.11 k/uL <0.03 <0.03 Immature Gran % % 0.2 IMMATURE GRANS (ABS) <0.10 k/uL <0.03 DTYPE Auto Auto Protein, Total 6.3 - 8.0 g/dL 7.3 6.8 Albumin 3.9 - 4.9 g/dL 4.2 4.0 Calcium 8.5 - 10.2 mg/dL 9.9 9.5 Bilirubin, Total 0.2 - 1.3 mg/dL 0.5 0.6 Alkaline Phosphatase 34 - 123 U/L 63 52 AST 13 - 35 U/L 13 13 ALT 7 - 38 U/L 11 12 Glucose 74 - 99 mg/dL 106 (H) 93 BUN 7 - 21 mg/dL 20 20 Creatinine 0.58 - 0.96 mg/dL 0.92 0.85 Sodium 136 - 144 mmol/L 140 141 Potassium 3.7 - 5.1 mmol/L 4.0 4.2 Chloride 97 - 105 mmol/L 100 102 CO2 22 - 30 mmol/L 30 30 Anion Gap 9 - 18 mmol/L 10 9 eGFR >=60 mL/min/1.73m 64 70 Cholesterol, Total <200 mg/dL 184 Triglyceride <150 mg/dL 74 HDL Cholesterol >39 mg/dL 60 Non HDL Cholesterol <130 mg/dL 124 Fasting Time hrs 12 VLDL Cholesterol <30 mg/dL 15 TC:HDL Ratio <5.10 3.07 LDL Cholesterol <100 mg/dL 109 (H) LDL:HDL Ratio <2.54 1.82 ASSESSMENT/PLAN: 1. Viral URI with cough - ICD9: 465.9, ICD10: J06.9 (primary diagnosis) - Discussed viral etiology and rationale for treatment. - Symptomatic treatment with prn analgesia - Supportive care with fluids and rest - The patient may also use OTC cough and cold meds as needed. - XR CHEST 2V FRONTAL/LAT 2. Bacterial sinusitis - ICD9: 473.9, 041.9, ICD10: J32.9, B96.89 - Will begin treatment with Doxycycline - The patient should also be given OTC cough and cold meds as needed and nasal saline gtts and suction prn for the first 5-7 days of treatment. - Follow up in one week if symptoms persist or worsen. 3. MONTRELL (obstructive sleep apnea) - ICD9: 327.23, ICD10: G47.33 Controlled on Bipap. 4. Essential hypertension - ICD9: 401.9, ICD10: I10 - good control - Continue current medication(s) - Encouraged dietary sodium restriction/DASH diet - Recommended regular aerobic exercise. - Reviewed risks of HTN and principles of treatment - Goal of BP <140/90 5. GERD without esophagitis - ICD9: 530.81, ICD10: K21.9 - Continue treatment with Protonix 40 mg QD Suze Wiseman MD documented in this encounter [facility] 04-28-2022 Miscellaneous Notes phoned patient and left detailed message of lab orders and instrustions. Natalie Marques LPN Lab orders placed. She should fast 10 hours prior to getting labs completed. Hillary Zapata APRN.CNP Pt calls to see if there is any blood work needed before appointment with Dr. Wiseman on 04/30. Pt stated that she hasn't had any lab work done for a while and Bowen has been checking her kidney function and that she would like her sugar checked as well. Please call patient regarding lab orders at [phone] documented in this encounter [facility] 04-23-2022 Miscellaneous Notes Patient notified of results. Tracey Ewing MA Please call patient and let her know her ultrasound and mammogram do not show any concerning abnormalities. Follow-up next week with Dr. Wiseman as scheduled. Hillary Zapata APRN.CNP documented in this encounter [facility] 04-21-2022 History of Present illness Narrative [facility] CDM Enrollment Provider Action/FYI: Pati this is Daiana Bedolla RN your nurse Bench Repair Technician. I am calling to provide you with a phone number to connect you with [facility] services. This number is available 7 days a week from 8am-8pm and provides you with one call access to nursing, appointments, and other valuable resources. I can also send this information to your MyChart. Please take the time to write this number down . - has had a cold/ resolving - has pcp appt on 04/30 - denies needs or concerns at this time Patient referred by: [facility] Linda Contact made with patient: Yes - Patient identified by name and . Discussed care with patient Pati this is Daiana Bedolla RN and I am calling from Suze Wiseman MD office at the [facility]. I am a RN Bench Repair Technician with our [facility] Chronic Disease Management program. Suze Wiseman MD wanted me to reach out to help you manage your health at home. Our goal is to keep you well at home. We want to help you manage your chronic disease by providing a safety net of resources around you, getting you the care you need in a timely manner, and hopefully keep you out of the ED and hospital. I will send you a few questions once a week through your [employer] account. It will automatically show up for you to complete. There are simple questions that will help us identify if you have any concerns or symptoms and I will call you to help get what you need. We will be able to connect you, review your symptoms, do an on demand visit, or communicate with Suze Wiseman MD if needed. I am going to sign you up for the program now. Enrollment Questions: Let's get you enrolled in the program. Yes, Do you have regular access to a computer/smartphone? No, Are you offering patient a biweekly phone call? yes/no: Yes. Goal Setting: I would like to take some time today to discuss your personal health goals. Patient does not have a goal. We will review during our next conversations to help support you. Most people know what to do to become healthier, yet struggle to put it into action on their own.It can be hard to maintain a healthy lifestyle, especially when life is so stressful. Can we connect you with a [facility] Health Director Of Public Safety to find a program that could help you meet your goals? No Closing: Patient accepts telephonic outreach Thank you for your time today. I am excited to work together in managing your health! I will check back within in two weeks to see how things are going. If questions or concerns arise between phone calls, please reach out to your PCP s office. (Place in active status for [facility] and place name in care team and update next patient outreach data to next business day two weeks from today s date) documented in this encounter [facility] 04-20-2022 History of Present illness Narrative Radiology Service Progress Note PATIENT NAME: Mona Jansen DATE OF SERVICE: April 20, 2022 TIME: 8:55 AM PATIENT IDENTITY VERIFICATION COMPLETED USING TWO (2) IDENTIFIERS: Name and Date of confirmed by patient verbally. FALL SCREENING: Has the patient had 2 falls in the last year or 1 fall with injury or currently using an Ambulatory Assistive Device (Walker, Cane, Wheelchair, Crutches, etc.)? No PATIENT GENDER DATA: Female. status: : No status: NO. PATIENT RELEVANT IMPLANT DATA REVIEWED: Not Applicable RADIOLOGY DEPARTMENT: Mammography PERIPHERAL IV DATA: Not applicable SIGNED BY: RT Cherry(R) April 20, 2022 8:55 AM documented in this encounter [facility] 02-18-2022 History of Present illness Narrative Chief Complaint Patient presents with: Breast Problem: Pain on and off in left breast x 2 weeks. Reports sometimes right as well. HPI Mona Jansen is a 81 year old female who presents here today for Above Complaints. Patient complaining of bilateral breast pain which started about 2 weeks ago. Pain is described as intermittent sharp, up to 6/10, without radiation. Pain occurs in different spots on the breast and lasts about a minute. Can occur at or with exertion. Denies exacerbating factors. Treating with tylenol which does improve her pain. Denies breast lumps, erythema, nipple discharge or deformity, fever, night sweats, weight loss. Past medical history, appointments, medications, allergies reviewed. Previous Medical History PAST MEDICAL HISTORY Diagnosis Date Asthma Seeing Dr. Martins Bilateral carotid artery stenosis Diaphragmatic hernia without mention of obstruction or gangrene DVT (deep venous thrombosis) ([facility]) 05/2018 Generalized osteoarthrosis, unspecified site GERD (gastroesophageal reflux disease) Hematoma Dr. Zealya Hemorrhage of rectum and anus Morbid obesity ([facility]) MONTRELL (obstructive sleep apnea) Other and unspecified hyperlipidemia Overactive bladder Pacemaker Presence of IVC filter Pulmonary embolism ([facility]) Seasonal allergies Dr. Choi SSS (sick sinus syndrome) ([facility]) Seeing Dr. Polk SVT (supraventricular tachycardia) ([facility]) Unspecified essential hypertension Urinary incontinence Dr. Serrato Vitamin D deficiency Previous Surgical History PAST SURGICAL HISTORY Procedure Laterality Date ANESTH,PACEMAKER INSERTION ARTHRP ACETBLR/PROX FEM PROSTC AGRFT/ALGRFT 08/13/2005 Hip replacement, total left ARTHRP KNE CONDYLE&PLATU MEDIAL&LAT COMPARTMENTS 04/05/2005 Knee replacement, total left ARTHRP KNE CONDYLE&PLATU MEDIAL&LAT COMPARTMENTS 01/2006 Knee replacement, total right COLONOSCOPY FLX DX W/COLLJ SPEC WHEN PFRMD 08/03/2007 COLONOSCOPY FLX DX W/COLLJ SPEC WHEN PFRMD 08/03/2007 Colonoscopy COLONOSCOPY FLX DX W/COLLJ SPEC WHEN PFRMD 09/18/2015 Colonoscopy (MAC) ESOPHAGOGASTRODUODENOSCOPY TRANSORAL DIAGNOSTIC 08/24/2011 EGD ESOPHAGOGASTRODUODENOSCOPY TRANSORAL DIAGNOSTIC 09/18/2015 EGD (MAC) IVC FILTER 05/2018 PAST SURGICAL HISTORY OF 10/2013 Pacer placement Family History FAMILY HISTORY Problem Relation Age of Onset Hypertension Mother Heart Mother AR at age 75 Heart Father AR at age 85, sudden Diabetes Sister Pacemaker; ?had mild AR Heart Sister Diabetes Maternal Uncle Parkinson s Disease Maternal Uncle Patient Allergies ALLERGIES Allergen Reactions Augmentin [Amoxicil* GI Upset Grass Pollen Unknown Iodine [Contrast Dy* hypotension Mold Unknown Sodium Pentothal [O* tongue numbness Thiopental Unknown Trospium Other: See Comments Leg weakness Current Medications Current Outpatient Medications on File Prior to Visit Medication Sig fluticasone (FLONASE ALLERGY RELIEF) 50 mcg/actuation nasal spray Use 1 [place] in each nostril once daily. BIPAP Formal mask refitting: Try New mask. Change pressure to BiPAP @ 9/6 cm of water with humidification. Mask (per patient preference) optional chin strap (if indicated) , filters, tubing, humidifier and lifetime supplies. Cholecalciferol, Vitamin D3, 5,000 unit cap Take 1 capsule by mouth once daily. furosemide (LASIX) 20 mg tablet Take 1 tablet by mouth once daily. (Patient taking differently: Take 20 mg by mouth once daily. Course of therapy completed) MEDICAL SUPPLY Tubigrip elastic support bandages to knees bilaterally to be worn daily for bilateral lower extremity edema. pantoprazole DR (PROTONIX) 40 mg tablet Take 1 tablet by mouth once daily as needed. potassium chloride ER (K-DUR, KLOR-CON) 10 mEq tablet Take 1 tablet by mouth once daily. (Patient not taking: Reported on 02/18/2022) albuterol HFA (VENTOLIN HFA) 90 mcg/actuation inhaler Inhale 2 Puffs as instructed every 6 hours as needed for wheezing/shortness of breath. as needed No current facility-administered medications on file prior to visit. Social History Social History Tobacco Use Smoking status: Never Smokeless tobacco: Never Vaping Use Vaping Use: Never used Substance Use Topics Alcohol use: Yes Comment: ocas-monthly Drug use: No Review of Symptoms REVIEW OF SYSTEMS See HPI EXAM: BP 134/80 Pulse 73 Resp 16 Wt 114.1 kg (251 lb 9.6 oz) SpO2 98% BMI 43.19 kg/m General Appearance: Well appearing, alert, in no acute distress, well-hydrated, well nourished.. Skin: moderate severity shruti rash under left breast. Breast: Inspection negative. No nipple discharge or bleeding. No palpable mass and No skin changes or dimpling. Health Maintenance List SHINGRIX VACCINE(1 of 2) Never done ADVANCE DIRECTIVE DISCUSSION Never done DEPRESSION ASSESSMENT Never done COVID-19 VACCINE(4 - Booster for Pfizer series) due on 11/20/2021 INFLUENZA(1) due on 12/31/2021 ANNUAL PCP TEAM CHRONIC DISEASE VISIT due on 10/23/2022 BP CONTROLLED (<130/80) due on 10/23/2022 DIABETES SCREEN due on 08/21/2024 DTAP,TDAP,TD(3 - Td or Tdap) due on 10/26/2028 BONE DENSITY Completed SPIROMETRY Completed PNEUMOCOCCAL: 65+ Completed ASSESSMENT/PLAN: 1. Breast pain - ICD9: 611.71, ICD10: N64.4 (primary diagnosis) Normal exam. Obtain diagnostic mammogram and US. - [facility] DIAGNOSTIC BILAT - US BREAST LTD RT - US BREAST LTD LT 2. Candidal intertrigo - ICD9: 112.3, ICD10: B37.2 Start BID x2 weeks or 1 week past resolution of rash. Discussed keeping under breasts and in groin dry to prevent recurrent infection. - CLOTRIMAZOLE 1 % TOPICAL CREAM Suze Wiseman MD' documented in this encounter [facility] 02-04-2022 Miscellaneous Notes Spoke with patient. Given message from provider's office. Patient verbalizes understanding. Marilee Avelar RN Message left for pt to call back. Gaby Argueta Ma Agree. Recommend ice/heat to the area and OTC analgesics for pain. Patient requesting appt with pcp. Reports for last 2 weeks having a little discomfort left side of breast, more noticeable when lifting arm. Does radiate to neck somtimes. Does not feel lump. No CP. Reports she had a stress test and several ECHO's which were all negative in the past year. Does have SOB on exertion but this is not new. Does have tingling in hands- but was suppose to have carpal tunnel surgery before she got covid (and spent 6 weeks in hospital almost a year ago). Scheduled appt with pcp (Dr. Wiseman only, per patient). Patient agreeable to ER if develops CP/or pressure, SOB, or condition worsens. documented in this encounter [facility] 10-23-2021 History of Present illness Narrative Chief Complaint Patient presents with: F/U 3 Month HPI Mona Jansen is a 81 year old female who presents here today for Above Complaints. Accompanied today by . Had follow up with cardiology in august for history of EVANS and they stressed the importance of her following up with PT/OT. Recent stress test normal in July. Patient following up with PT/OT on a weekly basis at this time and they are working with her on some left ankle pain and mobility. Using walker and cane for ambulation without recent falls. Taking Protonix on a PRN basis for heartburn. Needs medication once every 2-3 weeks. Needs refill today. Asthma: Patient states that she has not been using her Symbicort since June. Has not needed rescue inhaler recently. Denies cough/wheezing. No changes to regimen at appointment with Dr. Martins in September. MONTRELL: controlled on Bipap nightly. BP well controlled today. Checking BP at home intermittently with wrist cuff. Has been off of the midodrine without hypotensive readings. Noted that her BP is higher with her arm hanging down compared to at the level of her heart. PHQ-2 / Depression screen He in the past two weeks denies having felt down, depressed, hopeless or with little interest or pleasure in doing things. Past medical history, appointments, medications, allergies reviewed. Previous Medical History PAST MEDICAL HISTORY Diagnosis Date Asthma Seeing Dr. Martins Bilateral carotid artery stenosis Diaphragmatic hernia without mention of obstruction or gangrene DVT (deep venous thrombosis) ([facility]) 05/2018 Generalized osteoarthrosis, unspecified site GERD (gastroesophageal reflux disease) Hematoma Dr. Zelaya Hemorrhage of rectum and anus Morbid obesity ([facility]) MONTRELL (obstructive sleep apnea) Other and unspecified hyperlipidemia Overactive bladder Pacemaker Presence of IVC filter Pulmonary embolism ([facility]) Seasonal allergies Dr. Choi SSS (sick sinus syndrome) ([facility]) Seeing Dr. Polk SVT (supraventricular tachycardia) ([facility]) Unspecified essential hypertension Urinary incontinence Dr. Serrato Vitamin D deficiency Previous Surgical History PAST SURGICAL HISTORY Procedure Laterality Date ANESTH,PACEMAKER INSERTION ARTHRP ACETBLR/PROX FEM PROSTC AGRFT/ALGRFT 08/13/2005 Hip replacement, total left ARTHRP KNE CONDYLE&PLATU MEDIAL&LAT COMPARTMENTS 04/05/2005 Knee replacement, total left ARTHRP KNE CONDYLE&PLATU MEDIAL&LAT COMPARTMENTS 01/2006 Knee replacement, total right COLONOSCOPY FLX DX W/COLLJ SPEC WHEN PFRMD 08/03/2007 COLONOSCOPY FLX DX W/COLLJ SPEC WHEN PFRMD 08/03/2007 Colonoscopy COLONOSCOPY FLX DX W/COLLJ SPEC WHEN PFRMD 09/18/2015 Colonoscopy (MAC) ESOPHAGOGASTRODUODENOSCOPY TRANSORAL DIAGNOSTIC 08/24/2011 EGD ESOPHAGOGASTRODUODENOSCOPY TRANSORAL DIAGNOSTIC 09/18/2015 EGD (MAC) IVC FILTER 05/2018 PAST SURGICAL HISTORY OF 10/2013 Pacer placement Family History FAMILY HISTORY Problem Relation Age of Onset Hypertension Mother Heart Mother AR at age 75 Heart Father AR at age 85, sudden Diabetes Sister Pacemaker; ?had mild AR Heart Sister Diabetes Maternal Uncle Parkinson s Disease Maternal Uncle Patient Allergies ALLERGIES Allergen Reactions Augmentin [Amoxicil* GI Upset Grass Pollen Unknown Iodine [Contrast Dy* hypotension Mold Unknown Sodium Pentothal [O* tongue numbness Thiopental Unknown Trospium Other: See Comments Leg weakness Current Medications Current Outpatient Medications on File Prior to Visit Medication Sig potassium chloride ER (K-DUR, KLOR-CON) 10 mEq tablet Take 1 tablet by mouth once daily. fluticasone (FLONASE ALLERGY RELIEF) 50 mcg/actuation nasal spray Use 1 [place] in each nostril once daily. acetaminophen (TYLENOL) 325 mg tablet Take 650 mg by mouth every 6 hours as needed for pain. Cholecalciferol, Vitamin D3, 5,000 unit cap Take 1 capsule by mouth once daily. pantoprazole DR (PROTONIX) 40 mg tablet Take 1 tablet by mouth once daily as needed. furosemide (LASIX) 20 mg tablet Take 1 tablet by mouth twice daily. (Patient taking differently: Take 1 tablet by mouth once daily.) albuterol HFA (VENTOLIN HFA) 90 mcg/actuation inhaler Inhale 2 Puffs as instructed every 6 hours as needed for wheezing/shortness of breath. as needed calcium carbonate (TUMS) 500 mg chew Take 1 tablet by mouth twice daily. loperamide (IMODIUM) 2 mg cap(s) Take 2 mg by mouth four times daily as needed for diarrhea. BIPAP Formal mask refitting: Try New mask. Change pressure to BiPAP @ 9/6 cm of water with humidification. Mask (per patient preference) optional chin strap (if indicated) , filters, tubing, humidifier and lifetime supplies. budesonide-formoterol (SYMBICORT) 160-4.5 mcg/actuation inhaler Inhale 2 Puffs as instructed twice daily. Use with spacer. Rinse mouth out after use. (Patient not taking: Reported on 09/21/2021 ) No current facility-administered medications on file prior to visit. Social History Social History Tobacco Use Smoking status: Never Smoker Smokeless tobacco: Never Used Vaping Use Vaping Use: Never used Substance Use Topics Alcohol use: Yes Comment: ocas-monthly Drug use: No Review of Symptoms REVIEW OF SYSTEMS GENERAL: No weight loss, malaise or fevers RESPIRATORY: See HPI CARDIOVASCULAR: Negative for chest pain, leg swelling, hypertension, CHF or palpitations GI: No nausea, vomiting, or diarrhea SKIN: Negative for lesions, rash, and itching EXAM: BP 118/68 Pulse 80 Temp 36.2 C (97.1 F) (Left Tympanic) Resp 16 Wt 113.4 kg (250 lb) BMI 42.91 kg/m General Appearance: Well appearing, alert, in no acute distress, well-hydrated, well nourished.. Skin: Skin color, texture, turgor normal, no suspicious rashes or lesions. Lungs: Lungs clear to auscultation. No wheezing, rhonchi, rales.. Heart: RRR without murmur, gallop, or rubs. No ectopy. Abdomen: Normal abdominal exam, Abdomen soft, non-tender. Bowel sounds normal. No masses, organomegaly. Extremities: Edema: 1+ edema to mid ralph bilaterally. 2+ at ankles Health Maintenance List BP CONTROLLED (<130/80) Never done SHINGRIX VACCINE(1 of 2) Never done ADVANCE DIRECTIVE DISCUSSION Never done DEPRESSION SCREENING due on 10/03/2021 INFLUENZA(Season Ended) due on 12/31/2021 COVID-19 VACCINE(4 - Booster for Pfizer series) due on 01/26/2022 ANNUAL PCP TEAM CHRONIC DISEASE VISIT due on 07/22/2022 DIABETES SCREEN due on 08/21/2024 DTAP,TDAP,TD(3 - Td or Tdap) due on 10/26/2028 BONE DENSITY Completed SPIROMETRY Completed PNEUMOCOCCAL: 65+ Completed Data reviewed Component Latest Ref Rng & Units 08/21/2021 WBC 3.70 - 11.00 k/uL 6.31 RBC 3.90 - 5.20 m/uL 4.58 Hemoglobin 11.5 - 15.5 g/dL 13.2 Hematocrit 36.0 - 46.0 % 41.9 MCV 80.0 - 100.0 fL 91.5 MCH 26.0 - 34.0 pg 28.8 MCHC 30.5 - 36.0 g/dL 31.5 RDW-CV 11.5 - 15.0 % 13.3 Platelet Count 150 - 400 k/uL 190 MPV 9.0 - 12.7 fL 10.3 Neut% % 58.0 Abs Neut (ANC) 1.45 - 7.50 k/uL 3.66 Lymph% % 31.4 Abs Lymph 1.00 - 4.00 k/uL 1.98 Piatt% % 9.2 Abs Piatt <0.87 k/uL 0.58 Eosin% % 1.1 Abs Eosin <0.46 k/uL 0.07 Baso% % 0.3 Abs Baso <0.11 k/uL <0.03 DTYPE Auto Protein, Total 6.3 - 8.0 g/dL 7.3 Albumin 3.9 - 4.9 g/dL 4.2 Calcium 8.5 - 10.2 mg/dL 9.9 Bilirubin, Total 0.2 - 1.3 mg/dL 0.5 Alkaline Phosphatase 34 - 123 U/L 63 AST 13 - 35 U/L 13 ALT 7 - 38 U/L 11 Glucose 74 - 99 mg/dL 106 (H) BUN 7 - 21 mg/dL 20 Creatinine 0.58 - 0.96 mg/dL 0.92 Sodium 136 - 144 mmol/L 140 Potassium 3.7 - 5.1 mmol/L 4.0 Chloride 97 - 105 mmol/L 100 CO2 22 - 30 mmol/L 30 Anion Gap 9 - 18 mmol/L 10 eGFR >=60 mL/min/1.73m 64 ASSESSMENT/PLAN: 1. EVANS (dyspnea on exertion) - ICD9: 786.09, ICD10: R06.09 (primary diagnosis) Gradually improving with PT/OT. Negative stress test in July. Continue PT/OT recommendations. 2. History of COVID-19 - ICD9: V12.09, ICD10: Z86.16 EVANS on exertion improving. Other symptoms resolved. Fully vaccinated. 3. SSS (sick sinus syndrome) (HCC) - ICD9: 427.81, ICD10: I49.5 S/p pacemaker. Asymptomatic on current regimen. F/u with cardiology recommendations and healthy/DASH diet. 4. Cardiac pacemaker - ICD9: V45.01, ICD10: Z95.0 5. Essential hypertension - ICD9: 401.9, ICD10: I10 - good control - Continue current medication(s) - Encouraged dietary sodium restriction/DASH diet - Recommended regular aerobic exercise. - Reviewed risks of HTN and principles of treatment - Goal of BP <140/90 6. MONTRELL (obstructive sleep apnea) - ICD9: 327.23, ICD10: G47.33 Controlled on nightly Bipap. 7. GERD without esophagitis - ICD9: 530.81, ICD10: K21.9 Continue PRN protonix. 8. Bilateral lower extremity edema - ICD9: 782.3, ICD10: R60.0 Continue lasix daily and will order tubigrips per patient request. Cannot tolerate compression stockings. Recommended low sodium diet, leg elevation with rest. Suze Wiseman MD documented in this encounter [facility] 10-07-2021 Miscellaneous Notes Request completed and faxed. Confirmed and filed. Shagufta Gibbs Ma Type of letter/form/fax request - Medical Necessity Form received from Annamaria on 2c floor and placed on [facility]'s desk for completion. Completed form needs to be faxed to [phone]. Route to [place] when form completed for processing documented in this encounter [facility] 09-21-2021 Instructions [place], - 09/21/2021 10:24 AM EDT Exercise/Activity Guidelines: Regular exercise has many benefits: Improves stress on heart to help it function stronger Reduces heart disease risk factors such as high blood pressure, high cholesterol, high blood sugar and being overweight Improves energy levels Improves muscle tone and strength Improves balance and joint flexibility Strengthen bones Reduces weight Reduces stress, tension, anxiety and depression Improves sleep Tips: Gradually work up to exercising 30 minutes at least 5 times a week or as tolerated Gradually increase your activity level Choose an activity that you enjoy Aerobic exercises are best such as walking, cycling (often easier on joints), and Swimming (often easier on joints). Avoid exercising or significant activity outside when too hot (80F or higher) or too cold (20F or lower) Lifting or resistance training should be done twice a week as tolerated STOP EXERCISING IF YOU: Have pressure or pain in chest, neck, arm, jaw, or shoulder or have any other Symptoms that cause concern Feel weak Are dizzy or lightheaded LOW SALT DIET Purpose: Sodium controlled diets are designed to avoid excessive sodium retention Use: The low salt diet is used for persons with diseases that affect fluid balance or where a decrease in body fluid volume will relieve symptoms of the disease. Conditions where control may be indicated are severe heart failure, impaired liver function, high blood pressure, and acute and chronic kidney disease. Here are the following guidelines to help reduce the amount of sodium in your diet. Take the salt shaker off the table and omit salt from recipes and food preparation. Cook without salt or with only small amounts of added salt. Learn to enjoy the flavors of unsalted foods Try flavoring foods with herbs, spices, and lemon juice. Read food labels carefully to determine the amounts of sodium. Learn to recognize ingredients that contain sodium, Salk, soy sauce, salt brine or any ingredient with sodium (such as monosodium glutamate) or baking soda (sodium bicarbonate) as part of its name contains sodium. Rinsing canned vegetable and fish will remove much of the salt. Season or marinate meat, poultry, and fish ahead of time with onion, garlic and your favorite herbs before cooking to bring out the flavor. Some terms describing sodium content: lite, light, lightly salted, low sodium, reduced sodium, sodium free, unsalted, no salt added, without salt added, very low sodium. Use lower sodium products, when available, to repace those with higher sodium content. Use simple techniques like saving chicken broth from a chicken you cook at home rather than buying a canned, powdered or bouillon cube broth. When dining out words that signal high sodium include: smoked, barbequed, pickled, broth, soy sauce, teriyaki, creole sauce, marinated, cocktail sauce, tomato base, parmesan, and mustard sauce. FOODS RECOMMENDED FOODS TO AVOID MILK & DAIRY 2-3 servings each day All milk and milk products, except buttermilk Cream Cheese Low sodium cheeses Yogurt MILK & DAIRY Buttermilk Cheese (Chelsea, Hollis, Cheddar, Blue, Gouda, Cymraes, Velveeta) Cheese spreads FRUITS & VEGETABLES 5-9 servings each day Fresh or frozen vegetables No added salt or low salt canned vegetables No added salt tomato products Salt-free vegetable juices All fruit and fruit juices FRUITS & VEGETABLES Canned vegetables Frozen vegetables with seasoning and sauces Pickle relish, sweet or sour Pickled vegetables Pickles and others prepared in brine Sauerkraut Vegetable or tomato juices, canned or bottled Pickled fruits BREADS & GRAINS 6-11 servings each day Bread and rolls Dry and cooked cereals Pancakes, waffles Potatoes Salt-free potato chips Salt-free pretzels/snack chips Rice, barley, noodles, spaghetti, macaroni and other pastas Tortillas Unsalted crackers Unsalted popcorn BREADS & GRAINS Breads and rolls with salted tops Instant hot cereals Instant food products (e.g., cereals, pasta mixes, potatoes, rice, etc.) such as boxed mixes like rice, scalloped potatoes, macaroni and cheese Popcorn, prepackaged microwave Salted popcorn Saltines, potato chips, pretzels, snack chips, pork rinds MEATS & MEAT SUBSTITUES 2-3 servings or total of 6 oz daily All fresh and fresh frozen meats (poultry, fish, shellfish, beef, pork, kelly) Canned unsalted tuna fish Dried peas and beans Eggs Low sodium peanut butter Unsalted nuts Unsalted soybeans and other meat substitutes Soups Homemade soups, made with allowed ingredients Unsalted broth or bouillon Low sodium commercial soup MEATS & MEAT SUBSTITUTES Cured, salted, canned or smoked meats, poultry, or fish such as corned beef, ham, lofton, luncheon meats, beef jerky, bologna, pork rinds, hogmaws, ribs, chitterlings, frankfurter, sausage, chorizo, canned fish like tuna, sardines, mackerel, anchovies, caviar, salkted cod, becerril, sardines, lox, dry fish, and kippered salmon Dried fish, Assorted (e.g., dried shrimp) Frozen pizza Frozen prepared meat entree dinners such as pot pies, macaroni and cheese Kosher meats Pickled meats Regular peanut butter Salted nuts Soups Broth and soups with added salt Regular canned soups Regular instant soups Regular bouillon cubes FATS & SNACKS (use sparingly) Margarine, vegetable oils and lard Unsalted gravies Unsalted butter Mayonnaise, sour cream Salt-free salad dressings Homemade salad dressings, made without added salt Whipping cream Sugar, honey, jelly, jam, syrup, candies Popsicles, fruit ice, sherbet, fruit sorbet, marshmallows Homemade cookies, pies, cakes made with allowed ingredients FATS & SNACKS Butter Commercial salad dressings Cheese-based dressings [place] fat, fatback, salt pork Salad dressing mixes Olives, green and black Prepared frozen cream pies and cheese cake Instant pudding mixes Commercially prepared baked goods (cakes, cookies, pie) Salted nuts MISC. Allspice, mustard (dry) [place] extract Basil Winthrop leaves Capello's Andorran style seasoning Kavon seeds Chives cider vinegar Cinnamon Almazan powder Hoa crystal Dill Garlic powder Amparo Herbal seasonings: Lawry's seasoned pepper Lawrsanaz's seasoning (no salt) Lemon juice Mace MrsEstefanía Haywood Nutmeg Onion powder Paprika Parsley Parsley patch Peppermint extract Pimento Katheryn Kwame Salt free seasoning blends Savory Sodium-free baking powder Thyme Turmeric Vinegar Licona's all-purpose seasonings Labeled no salt Products, assorted (e.g., cabello paste, and sauces, oriental dried plums and other dried seeds, vegetables and fruits (lemon & amparo) MISC. Accent Hannah-seltzer All commercially prepared and convenience foods Such as TV dinners, box mixes, canned entrees, hamburger helper, meat pies, French dinners, pizza, shake'n'bake mixes BBQ sauce Celery salt [place] sauce Garlic salt Horseradish Kitchen bouquet Lemon pepper Marinade sauce Meat tenderizers Monosodium glutamate (MSG) Onion salt Green Party spreads Regular ketchup Relish Salad dressings Salt Seasoning salts Sodium benzoate Sodium caseinate Sodium citrate Sodium nitrate Sodium phosphate Sodium propionate Sodium saccharin Soy sauce Steak sauce Cisco sauce Teriyaki sauce [facility] sauce documented in this encounter [facility] 09-21-2021 History of Present illness Narrative Images from the original note were not included. 0 [facility] [place] Manoj Nu[facility]ez Department of Cardiovascular Medicine SECTION OF REGIONAL CARDIOLOGY 05/11/21 Mona Jansen is a 81 year old female with a history of SSS, S/P pacemaker insertion, SVT with profound bradycardia / pauses, hypertension, hyperlipidemia, and remote syncope who is for a follow up. HPI: SOCORRO 05/11/2021 She continues to have some cough and SOB at times with yellow sputum production. She had COVID-pneumonia and E. coli infection. She had multiple episodes of syncope during presentation of this due to hypotension and possible vasovagal syncope. She was seen by Dr. Humphries and had an echocardiogram on 04/13/2021 that was essentially normal. She was placed on midodrine and asked to increase her fluids. She has not had any further syncope. She denies chest pain, orthopnea, PND, palpitations, lightheadedness, dizziness, or syncope. The patient swims three days a week. Home blood pressure is done sporadically and in good range. Hospital Course 04/14/21 - 05/08/21 Patient was transferred to [facility] for physical and occupational therapy following hospital admission to [facility] from 04/11-04/14 for syncope. She had a complicated recent history. The patient was diagnosed with COVID on 03/25 and her symptoms progressively worsened despite two course of oral steroids. She was found to be hypoxic with ambulation and was admitted to [facility] for further management. During her admission, she was treated with dexamethasone. She was outside the window for the remdesivir. She was found to have e. Coli bacteremia and was treated with antibiotics. She clinically improved and was transferred to [place] for therapy. While at [place] [facility], the patient had recurrent syncopal episodes. She was evaluated in the ER, treated with IVF, then later sent out to [facility] and had cardiology evaluation, treated with IVF and started on midodrine. The patient had very slow progress at first due to dizziness but eventually progressed with therapy. She is able to sit up in chair and ambulate with a walker. She still experiences dizziness but it has improved overall. She was started on Lasix for shortness of breath which improved as well. She will follow-up with cardiology and pulmonary. She will also be given a referral to the [facility]. She will be discharged home with home health care: SN,PT,OT Prior history: 03/18/21 Patient has been feeling well since last appointment but did have some dizziness and came in to office to discuss with the nurse. She was only drinking 2-3 glassess of water a day at the time. On her last visit with Dr. Benavides she was having some increased shortness of breath. She underwent both a pacemaker check and an echocardiogram. The Pacemaker check was normal 07/04/17 and no evidence of SVT or atrial fibrillation per report but they did mention atrial high rates less than a minute duration. The patient was seen 05/09/2018 by her primary care for SOB and CT Chest was ordered. This was negative, however, there was concern for possible blood clot and CT was not done with IV contrast so d-dimer was ordered which came back elevated. VQ scan consistent with low probability of PE. US BLE revealed acute distal DVT to the right lower extremity. She was started on Coumadin and bridging with Lovenox on 05/12/2018. Shortly after, she developed an extensive right arm hematoma requiring transfer to [facility] for further management. She underwent IVC filter placement and required transfusion of 3 units PRBCs. She was then discharged to acute rehab for 2 weeks. PAST MEDICAL HISTORY Diagnosis Date Asthma Seeing Dr. Martins Bilateral carotid artery stenosis Diaphragmatic hernia without mention of obstruction or gangrene DVT (deep venous thrombosis) ([facility]) 05/2018 Generalized osteoarthrosis, unspecified site GERD (gastroesophageal reflux disease) Hematoma Dr. Zelaya Hemorrhage of rectum and anus Morbid obesity ([facility]) MONTRELL (obstructive sleep apnea) Other and unspecified hyperlipidemia Overactive bladder Pacemaker Presence of IVC filter Pulmonary embolism ([facility]) Seasonal allergies Dr. Choi SSS (sick sinus syndrome) ([facility]) Seeing Dr. Polk SVT (supraventricular tachycardia) ([facility]) Unspecified essential hypertension Urinary incontinence Dr. Serrato Vitamin D deficiency PAST SURGICAL HISTORY Procedure Laterality Date ANESTH,PACEMAKER INSERTION ARTHRP ACETBLR/PROX FEM PROSTC AGRFT/ALGRFT 08/13/2005 Hip replacement, total left ARTHRP KNE CONDYLE&PLATU MEDIAL&LAT COMPARTMENTS 04/05/2005 Knee replacement, total left ARTHRP KNE CONDYLE&PLATU MEDIAL&LAT COMPARTMENTS 01/2006 Knee replacement, total right COLONOSCOPY FLX DX W/COLLJ SPEC WHEN PFRMD 08/03/2007 COLONOSCOPY FLX DX W/COLLJ SPEC WHEN PFRMD 08/03/2007 Colonoscopy COLONOSCOPY FLX DX W/COLLJ SPEC WHEN PFRMD 09/18/2015 Colonoscopy (MAC) ESOPHAGOGASTRODUODENOSCOPY TRANSORAL DIAGNOSTIC 08/24/2011 EGD ESOPHAGOGASTRODUODENOSCOPY TRANSORAL DIAGNOSTIC 09/18/2015 EGD (MAC) IVC FILTER 05/2018 PAST SURGICAL HISTORY OF 10/2013 Pacer placement FAMILY HISTORY Problem Relation Age of Onset Hypertension Mother Heart Mother AR at age 75 Heart Father AR at age 85, sudden Diabetes Sister Pacemaker; ?had mild AR Heart Sister Diabetes Maternal Uncle Parkinson s Disease Maternal Uncle SOCIAL HISTORY: Social History Tobacco Use Smoking status: Never Smoker Smokeless tobacco: Never Used Vaping Use Vaping Use: Never used Substance Use Topics Alcohol use: Yes Comment: ocas-monthly Drug use: No ALLERGIES: Augmentin [Amoxicillin-Pot Clavulanate], Grass Pollen, Iodine [Contrast Dye], Mold, Sodium Pentothal [Other], Thiopental, and Trospium CURRENT MEDICATIONS: ROS: Card: See present history. Pulm: See present history. Gastro: No nausea, vomiting, or diarrhea GenUr: No history of dysuria, frequency or incontinence Endo: Negative for cold or heat intolerance, polyuria or polydipsia. Neuro: no focal weakness, focal sensory loss, headache, visual changes, seizure activity, ataxia, speech/language loss. Musculoskeletal: Negative for joint or muscle pain, back pain, or swelling. Infect: no fevers, chills, rigors or night sweats. Skin: Negative for lesions, rash, and itching. Heme: Negative for prolonged bleeding, bruising easily or swollen nodes. The remainder of the review of systems is negative. BP 152/74 Pulse 67 Ht 162.6 cm (5' 4 ) Wt 112.2 kg (247 lb 6.4 oz) SpO2 96% BMI 42.47 kg/m PHYSICAL EXAMINATION: General appearance: Well appearing, alert, in no acute distress, well-hydrated, well nourished. Skin: Skin color, texture, turgor normal, no suspicious rashes or lesions Head: Normocephalic, no masses, lesions, tenderness or abnormalities Eyes: Anicteric sclera. Pupils are equally round and reactive to light. Extraocular movements are intact. Lungs: Lungs with rhonchi diffusely Heart: RRR without murmur, gallop, or rubs. No ectopy Abdomen: Normal abdominal exam, Abdomen soft, non-tender. Bowel sounds normal. No masses, organomegaly Extremities: No deformities, 1-2+ edema, skin discoloration, clubbing or cyanosis. Good capillary refill. Musculoskeletal: No joint swelling, deformity, or tenderness Peripheral pulses: Normal Last 3 Encounter BP Readings: Date: BP: 03/01/2019 136/78 02/05/2019 118/60 01/31/2019 110/62 Last 3 Encounter Pulse Readings: Date: Pulse: 03/01/2019 81 02/05/2019 82 01/31/2019 68 Last 3 Encounter Wt Readings: Date: Wt: 03/01/2019 116.6 kg (257 lb) 02/05/2019 114.9 kg (253 lb 3.2 oz) 01/31/2019 115 kg (253 lb 9.6 oz) LABS: Glucose (mg/dL) Date Value 08/21/2021 106 05/20/2021 72 Potassium (mmol/L) Date Value 08/21/2021 4.0 05/20/2021 4.0 Sodium (mmol/L) Date Value 08/21/2021 140 05/20/2021 139 Chloride (mmol/L) Date Value 08/21/2021 100 05/20/2021 101 CO2 (mmol/L) Date Value 08/21/2021 30 05/20/2021 26 Creatinine (mg/dL) Date Value 08/21/2021 0.92 05/20/2021 0.80 BUN (mg/dL) Date Value 08/21/2021 20 05/20/2021 11 Anion Gap (mmol/L) Date Value 08/21/2021 10 05/20/2021 12 Calcium (mg/dL) Date Value 05/20/2021 10.0 Calcium, Total (mg/dL) Date Value 08/21/2021 9.9 Protein, Total (g/dL) Date Value 08/21/2021 7.3 04/14/2021 5.0 Albumin (g/dL) Date Value 08/21/2021 4.2 04/14/2021 2.7 Bilirubin, Total (mg/dL) Date Value 08/21/2021 0.5 04/14/2021 0.5 Alkaline Phosphatase (U/L) Date Value 08/21/2021 63 04/14/2021 37 AST (U/L) Date Value 08/21/2021 13 04/14/2021 19 ALT (U/L) Date Value 08/21/2021 11 04/14/2021 28 Hemoglobin (g/dL) Date Value 08/21/2021 13.2 04/14/2021 10.4 Hematocrit (%) Date Value 08/21/2021 41.9 04/14/2021 31.4 WBC (k/uL) Date Value 08/21/2021 6.31 04/14/2021 9.48 Cholesterol, Total (mg/dL) Date Value 05/29/2020 179 HDL Cholesterol (mg/dL) Date Value 05/29/2020 56 LDL Cholesterol (mg/dL) Date Value 05/29/2020 109 Triglyceride (mg/dL) Date Value 05/29/2020 68 CARDIAC TESTING: MPI 08/04/21 CONCLUSIONS: 1. SPECT Perfusion Study: Normal. 2. There is no scintigraphic evidence for inducible ischemia. 3. No evidence of scarred myocardium. 4. Left ventricle is normal in size. The left ventricle systolic function is normal. 5. This is a low risk scan. Gated Stress FBP LVEF % 72 Echo 04/13/2021: CONCLUSIONS: - Exam indication: syncope - The left ventricle is normal in size. Left ventricular systolic function is normal. EF is 66% and no wall motion abnormalities.(2D biplane) - The right ventricle is normal in size. - The visualized aorta is dilated with a maximal dimension of 4.1 cm. -[facility] -Limited subcostal images. Patient could not tolerate pressure from probe. - Exam was compared with the prior CC echocardiographic exam performed on 06/29/18. 07/14/20 Patient Name: Mona Jansen : 1940 Ordering Provider: Glen Polk Indication: I49.5 Sick sinus syndrome Type of Monitor: Extended Monitoring-Zio Patch Enrollment Dates: 07/14/2020-07/21/2020 Findings Patient had a min HR of 53 bpm, max HR of 164 bpm, and avg HR of 73 bpm. Predominant underlying rhythm was Possible Atrial and Ventricular Pacing. First Degree AV Block was present. 9 Supraventricular Tachycardia runs occurred, the run with the fastest interval lasting 4 beats with a max rate of 164 bpm, the longest lasting 18.5 secs with an avg rate of 102 bpm. Some episodes of Supraventricular Tachycardia may be possible Atrial Tachycardia with variable block. Isolated SVEs were occasional (3.9%, 29018), SVE Couplets were rare (<1.0%, 337), and SVE Triplets were rare (<1.0%, 10). Isolated VEs were rare (<1.0%, 11), VE Triplets were rare (<1.0%, 1), and no VE Couplets were present. No definite AF No symptom rhythm correlation Glen Polk, DO, FACC, FCCP, FACOI. DUAL CHAMBER PACEMAKER REMOTE EVALUATION: PRESENTING EGM: /VS BATTERY STATUS: Normal with no significant depletion, estimated time remaining to PIETER is 5.5 years COUNTERS SINCE : 11/10/2020 ATRIAL ARRHYTHMIAS: There have been 5 triggered episodes of atrial high rates with no EGMs showing for review, each lasting under 1 minute. Total time <0.1%. VENTRICULAR ARRHYTHMIAS: There have been no ventricular detections. LEAD MEASUREMENTS: Sensing is appropriate. Review of the lead impedance trends are normal. OTHER DIAGNOSTICS: Total V pacing 0.2%. FOLLOW UP: Continue with 3 month remotes and yearly in-clinic visits. Mariella Cat RN Pharmacologic MPI stress test (07/18/2018): CONCLUSIONS: 1. SPECT Perfusion Study: Normal. 2. There is no scintigraphic evidence for inducible ischemia. 3. No evidence of scarred myocardium. 4. Functional capacity N/A (pharmacological). 5. Left ventricle is normal in size. The left ventricle systolic function is hyperdynamic. 6. This is a low risk scan. 1 LVEF % 79 Echocardiogram (06/29/2018): CONCLUSIONS: - Technically difficult exam due to body habitus and suboptimal positioning. - Exam indication: Chest Pain - The left ventricle is normal in size. Left ventricular systolic function is normal. EF = 60 5% (2D biplane) Definity contrast used for endocardial border detection. Visually, the left ventriclar function appears borderline at 55% + or -5%. Normal left ventricular diastolic function. - The right ventricle is normal in size. Right ventricular systolic function is normal. - The visualized aorta is dilated with a maximal dimension of 4.1 cm. - Aortic valve sclerosis. Cannot rule out a possible bicuspid aortic valve. - Mild degenerative changes of the mitral valve. - Exam was compared with the prior echocardiographic exam performed on 09/03/2014. Pacemaker Remote Check (06/01/2018): EVALUATION - PRESENTING EGM: AP-VS - BATTERY STATUS: Normal and shows no significant depletion. - COUNTERS SINCE: 11/22/2017 - ATRIAL ARRHYTHMIAS: There have been 11 triggered episodes of atrial high rates all lasting < 1 minute each with no available EGMs for review. Total time <0.1%. - VENTRICULAR ARRHYTHMIAS: There have been no ventricular detections. - LEAD MEASUREMENTS: Sensing is appropriate. Review of the lead impedance trends are normal. - OTHER DIAGNOSTICS: V pacing <0.2%. - FOLLOW UP: Continue with 3 month remotes and yearly in-clinic visits. ASSESSMENT/PLAN: Dyspnea on exertion - different than prior and due now to COVID pneumonia with > 3 weeks admit and recent discharge 05/08/21 - Echo 04/13/21: normal LVEF, no LVDD, no significant valvular abnormalities - Spirometry 03/2014: unremarkable in past - CT Chest 04/10/21 showing COVID pneumonia - Normal Pharm MPI 08/04/21 and 06/2018 - Significant deconditioning s/p prolonged hospital admit - Continue home PT/OT S/p Covid Pneumonia and E. Coli bacteremia 03/10/21 - 04/14/21 - 05/08/21 last hospitalization In hospital total of about 6 weeks between [facility] and [facility] Cardiac pacemaker in situ - S/P dual-chamber permanent pacemaker implanted 10/2013 for SSS - Follows with Dr. Gandara and device clinic - Remote q 3 mo and annual with EP SVT (supraventricular tachycardia) - Stable Syncope and collapse - Resolved post-pacemaker implant - Recurrent but due to vasovagal and orthostatic hypotension - continue midodrine for now. Essential hypertension - Good control on lisinopril - Encouraged dietary sodium restriction/DASH diet - Reviewed risks of HTN and principles of treatment - Goal of BP <130/80 Mixed hyperlipidemia - Last lipid panel 06/2018: LDL 128 - Refuses statin - Higher 10 year (10%+) risk of AR Hx of DVT - 05/2018, acute distal RLE DVT - Started warfarin and shortly after developed severe Rt. Arm hematoma, coumadin stopped - S/P IVC filter placement 05/2018 MONTRELL (obstructive sleep apnea) - Back on BIPAP Conclusion: She is still dealing with her significant illness and post prolonged hospital day. She is off of midodrine now. She has increased fluid intake for now. PT/OT is critical. She fortunately had an unremarkable echo during this event. She will try to wear compression stockings as well. She uses furosemide as needed for worsening leg edema but this has not been a big problem lately. He EVANS does not appear to be from cardiac. She had a normal BNP and stress MPI 07/2021. Patient was advised on following a heart healthy diet such as the AHA or DASH dietary pattern and to get 30 minutes of aerobic exercise five times a week. Thank you for allowing me the privilege of participating in the care of your patient. Please do not hesitate to contact me if there are any questions. Glen Polk DO, FACC, FCCP, FACOI documented in this encounter [facility] 08-25-2021 Miscellaneous Notes Patient telephoned. Message left to call back for update. Ellie White LPN I would have her continue with the Lasix 20 mg BID and call her parcel post weigher if she is having increasing swelling with weight gain or SOB. Recommend keeping her sodium intake to less than 2,000 mg per day and gentle hydration so she doesn't take on too much fluid. Patient notified, verbalized understanding. Pt states that she is still having swelling, still taking water pills. Feels as if she is still gaining weight. Took an extra pill one day last week lost 5 lbs but was also urinating every 20 minutes. This am gained another lb. States that still having slight swelling. ----- Message from Suze Wiseman MD sent at 08/21/2021 3:21 PM EDT ----- Your lab results are normal. Please follow up as scheduled. Suze Wiseman MD documented in this encounter [facility] 08-21-2021 Miscellaneous Notes Returned call, discussed upcoming remote schedule. Patient left vm. Patient had a device in July at [facility] and wasn't sure if upcoming remote check was still needed. Can be reached at documented in this encounter [facility] 08-20-2021 Miscellaneous Notes Referral forwarded to [facility] Therapy department as requested. Referral order placed for PT. Please fax to [facility] as requested. Patient calls and states that she would like to start doing exercise and balance exercises at [facility]. Patient was told that if provider wrote an order for this, it could be covered under patient's insurance. Please review and advise, Keily Vasuqes RN documented in this encounter [facility] 08-05-2021 Miscellaneous Notes Pt called left VM with results ----- Message from Stephani Bennett APRN.CASTINGS DRAFTER sent at 08/04/2021 4:07 PM EDT ----- Please call the Pt: Your stress test was normal/negative. It demonstrated overall normal cardiac function with no signs of decreased blood flow or abnormal cardiac movement. Thanks! Stephani documented in this encounter [facility] 08-04-2021 Note HNO ID: [id number] Author: PATRICE Sue Service: Radiology Author Type: Technologist Type: Progress Notes Filed: 08/04/2021 12:10 PM Note Text: RADIOLOGY SERVICE PROGRESS NOTE SERVICE DATE: 08/04/2021 SERVICE TIME: 12:08 PM PATIENT IDENTITY VERIFICATION COMPLETED USING TWO (2) STANDARD IDENTIFIERS: Name and Date of confirmed by patient verbally and Name and Date of confirmed by identification band FALL SCREENING: Has the patient had 2 falls in the last year or 1 fall with injury or currently using an Ambulatory Assistive Device (Walker, Cane, Wheelchair, Crutches, etc.)? Yes, Patient High Risk for Falls What interventions were put in place to prevent falls during this visit? [place] Risk Wristband Applied, Offered Assistance with Transfers/Clothing, Increased Observations by Caregivers and Escorted to/from Restroom PATIENT GENDER DATA: .female : No ALLERGIES: Reviewed and unchanged MEDICATIONS REVIEWED: Not applicable PATIENT RELEVANT IMPLANT DATA REVIEWED: Not Applicable CREATININE: Creatinine Date Value Ref Range Status 06/04/2021 0.83 0.58 - 0.96 mg/dL Final 05/20/2021 0.80 0.58 - 0.96 mg/dL Final 04/22/2021 0.92 0.58 - 0.96 mg/dL Final eGFR-All Other Races Date Value Ref Range Status 06/04/2021 >60 Final Comment: eGFR (Estimated GFR) Units of measure: mL/min/1.73 meters squared eGFR is derived from the reexpressed MDRD Study equation using the following parameters: serum creatinine, age, gender and race. The creatinine assay has been calibrated to be traceable to IDMS. An eGFR <60 mL/min/1.73m2 for >3 months is consistent with chronic kidney disease. Refer to KDOQI guidelines for clinical interpretation. In patients with unstable renal function, e.g. those with acute kidney injury, the eGFR may not accurately reflect actual GFR. eGFR- Date Value Ref Range Status 06/04/2021 >60 Final P.O.C.T. RESULTS: N/A August 04, [address] PERFORMED: No IV SITE: Ambulatory: A peripheral IV was started in the Right antecubital site with a Angio cath: 22 gauge. POST EXAM PIV STATUS: Discontinued PROCEDURE TYPE: OR Stress: 15.9mCi [id number]-[id number] was administered IV for Rest Imaging at 9:37 by PATRICE Sue. 47.2 mCi Pr06o-Nxrchzu was administered IV for Stress Imaging at 10:45 by PATRICE Sue. PATIENT DISCHARGED TO: Ambulatory patient, left OR department area. A Diagnostic radioactive procedure has taken place, with no further precautions necessary other than routine body substance precautions. More information regarding radiation safety can be found using this link: [email or web address] [email or web address] SIGNATURE: PATRICE Sue PATIENT NAME: Mona Jansen DATE: August 04, 2021 TIME: 12:08 PM PAGER/CONTACT #: [facility] 08-04-2021 History of Present illness Narrative RADIOLOGY SERVICE PROGRESS NOTE SERVICE DATE: 08/04/2021 SERVICE TIME: 12:08 PM PATIENT IDENTITY VERIFICATION COMPLETED USING TWO (2) STANDARD IDENTIFIERS: Name and Date of confirmed by patient verbally and Name and Date of confirmed by identification band FALL SCREENING: Has the patient had 2 falls in the last year or 1 fall with injury or currently using an Ambulatory Assistive Device (Walker, Cane, Wheelchair, Crutches, etc.)? Yes, Patient High Risk for Falls What interventions were put in place to prevent falls during this visit? [place] Risk Wristband Applied, Offered Assistance with Transfers/Clothing, Increased Observations by Caregivers and Escorted to/from Restroom PATIENT GENDER DATA: .female : No ALLERGIES: Reviewed and unchanged MEDICATIONS REVIEWED: Not applicable PATIENT RELEVANT IMPLANT DATA REVIEWED: Not Applicable CREATININE: Creatinine Date Value Ref Range Status 06/04/2021 0.83 0.58 - 0.96 mg/dL Final 05/20/2021 0.80 0.58 - 0.96 mg/dL Final 04/22/2021 0.92 0.58 - 0.96 mg/dL Final eGFR-All Other Races Date Value Ref Range Status 06/04/2021 >60 Final Comment: eGFR (Estimated GFR) Units of measure: mL/min/1.73 meters squared eGFR is derived from the reexpressed MDRD Study equation using the following parameters: serum creatinine, age, gender and race. The creatinine assay has been calibrated to be traceable to IDMS. An eGFR <60 mL/min/1.73m2 for >3 months is consistent with chronic kidney disease. Refer to KDOQI guidelines for clinical interpretation. In patients with unstable renal function, e.g. those with acute kidney injury, the eGFR may not accurately reflect actual GFR. eGFR- Date Value Ref Range Status 06/04/2021 >60 Final P.O.C.T. RESULTS: N/A August 04, [address] PERFORMED: No IV SITE: Ambulatory: A peripheral IV was started in the Right antecubital site with a Angio cath: 22 gauge. POST EXAM PIV STATUS: Discontinued PROCEDURE TYPE: NM Stress: 15.9mCi Eb11k-Cbqrfes was administered IV for Rest Imaging at 9:37 by PATRICE Sue. 47.2 mCi Xw96x-Cmgkrna was administered IV for Stress Imaging at 10:45 by PATRICE Sue. PATIENT DISCHARGED TO: Ambulatory patient, left OR department area. A Diagnostic radioactive procedure has taken place, with no further precautions necessary other than routine body substance precautions. More information regarding radiation safety can be found using this link: [email or web address] %[email or web address] SIGNATURE: PATRICE Sue PATIENT NAME: Mona Jansen DATE: August 04, 2021 TIME: 12:08 PM PAGER/CONTACT #: documented in this encounter [facility] 08-03-2021 Miscellaneous Notes Spoke with patient regarding reminder for stress test tomorrow and given instructions. documented in this encounter [facility] 06-15-2021 Miscellaneous Notes Reviewed. Patient discharged from home health services this date 06/15/21. Patient made good progress with HHPT as is independent inside the home with a wheeled walker. Joni Baker PT [phone] documented in this encounter [facility] 06-15-2021 Miscellaneous Notes SITUATION: spouse present during today's visit. patient reports the following since the last homecare visit: medications/allergies--no changes, no fall. patient reports she has made good progress with the home therapy and is ready to be discharged from home health PT. BACKGROUND: Diagnoses (reason for Home Care):Pneumonia due to coronavirus disease COVID-19 Weakness Past Medical History: OA, GERD, Obesity, abnormal gait, frequent falls Weight Bearing or Surgical Precautions: NA ASSESSMENT: Focus of visit: discharge from [facility] Physical therapy discharged: goals partially achieved. Functional performance at discharge - bed mobility independent, transfers independent, ambulation independent and stairs stand by assist. Plan of care, goals, and discharge reviewed and agreed upon with patient and/or caregiver. RECOMMENDATION: Patient discharged from home health services. Instructions to include:home exercise program as directed, follow the recommended ambulation program, follow up with provider as scheduled and continued assistance with stairs. See intervention summary for intervention/education details. documented in this encounter [facility] 04-14-2021 Note HNO ID: [id number] Author: Angie Capone RN Service: Care Management Author Type: Registered Nurse Type: Care Mgt Progress Note Filed: 04/14/2021 12:22 PM Note Text: CARE MANAGEMENT PROGRESS NOTE SERVICE DATE: 04/14/2021 SERVICE TIME: 1215 LOS: 1 day Admission Date: 04/11/2021 DISCHARGE ARRANGEMENT (list agency and phone number) Discharge Arrangement: Group Home Facility Was an expedited discharge program used?: No Provider Name: [facility] CAREGIVER ASSESSMENT: HANDOFF COMMUNICATION: Handoff to: Primary Care Physician Primary Care Physician Name/Phone: Suze Wiseman TRANSPORTATION ARRANGEMENTS: Transportation Arrangements: Ambulance/[place] Transportation Agency and Phone #:: [facility] [phone] Date of Trip: 04/14/21 Time of Trip: 1300 Type of Service: BLS Non-emergency Is Patient Medicaid Pending?: No Discussion of financial coverage occurred with: Patient Delivery Tech Location: [place] Destination: [facility] Financial Care Management Responsibility: None ADDITIONAL CONTACT RESOURCES: NA Discharge Information Row Name Admission (Current) from 04/11/2021 in [facility] Transportation Agency MMT Transport Arranged To: [facility] Group Home Facility Agency [facility] Telephoned pt in room, discussed possible transportation fee to return to [facility]. Pt is aware and agreeable to fee. Notified pt of discharge today at 1300, notified Dr. Webb discharge orders need placed. SIGNATURE: Angie Capone RN PATIENT NAME: Mona Jansen DATE: April 14, 2021 TIME: 12:15 PM PAGER/CONTACT #: [phone] [facility] 04-14-2021 Note HNO ID: [id number] Author: Angie Capone RN Service: Care Management Author Type: Registered Nurse Type: Care Mgt Progress Note Filed: 04/14/2021 10:22 AM Note Text: CARE MANAGEMENT PROGRESS NOTE SERVICE DATE: 04/14/2021 SERVICE TIME: 1020 LOS: 1 day IMM Follow Up Copy Given: Yes Copy given to:: Patient Method: In Person . SIGNATURE: Angie Capone RN PATIENT NAME: Mona Jansen DATE: April 14, 2021 TIME: 10:21 AM PAGER/CONTACT #: [phone] [facility] 04-13-2021 Note HNO ID: [id number] Author: Angie Capone RN Service: Care Management Author Type: Registered Nurse Type: Care Mgt Initial Assessment Filed: 04/13/2021 5:38 PM Note Text: CARE MANAGEMENT: ASSESSMENT AND DISCHARGE PLAN SERVICE DATE: April 13, 2021 SERVICE TIME: 1733 PRIMARY CARE PHYSICIAN: Suze Wiseman MD ADMISSION STATUS: Inpatient Needs Prior to Discharge: Accepting Facility;Bed Availability;Discharge Transportation;Discharge Prescriptions MEDICAL: MEDICARE A AND B 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 Last discharge within 30 days: No Advance Directive: Current Advance Directive: Health Care Power of Humane Officer;Living Will In Chart: No Health LiteracyHow often do you need to have someone help you when you read instructions, pamphlets, or other written material from your doctor or pharmacy? : 1 - Never How confident are you filling out medical forms by yourself?: 1 - Extremely If Patient scores > 3 on either question, the following interventions were put into place:: Patient did not score > 3 on either question. Baseline Mental Status Prior to this Illness what was the patient's Baseline Mental Status?: Alert AND Oriented Prior to this illness, has anyone described the patient having any of the following behaviors?: Not Applicable Relationship of the informant to the patient:: Self Functional Status: Needs Assistance Does Patient Currently Receive Any Community Services or Home Care?: None Equipment Prior to Admission: Other: See Comment (pt from [facility]) Has the Patient Been in a Group Home Facility in the Past 30 days?: Yes Location and Dates: [facility] for two days SOCIAL: Living Arrangements: Nursing Facility Lives With: Spouse Facility Information: [facility] Financial Resources: Retired Primary Contact: Extended Emergency Contact Information Primary Emergency Contact: Geeta Cortez Relation: Daughter Secondary Emergency Contact: Tom Jansen Address: [address] [place] [address] Mobile Relation: Spouse Supportive Patient Contact:: Yes Contact Resources: Family Family Name/Phone: Tom Jansen Caregiver AssessmentCaregiver is ready, willing and able to meet the patient's needs as recommended by the inter-professional team:: Yes Does the patient have an acute stroke diagnosis, or has the patient had a stroke during this admission?: No Patient's transition needs and plan for meeting these needs: return to [facility] Patient's perception of need for this admission: syncopal episode at SNF Medication Adherance I am convinced of the importance of my prescription medication: 0 - Agree Completely I worry that my prescription medication will do more harm than good to me : 0 - Disagree Completely I feel financially burdened by my [id number] expenses for my prescription medication:: 0 - Disagree Completely Risk Score: 0 Patient is categorized as: Low risk < 2 Are you interested in bedside delivery of your medications? No Is Patient Psychosocially Complex?: No ASSESSMENT AND PLAN: Medical Needs: Medical Needs: Two or more chronic diseases;Obesity Psychosocial Needs: Psychosocial Needs: None FREEDOM OF CHOICE EXPLAINED: [place] of Choice Given: No Reason Not Given: Patient refused (pt has only been at [facility] for two days) POTENTIAL TRANSITION PLANS Group Home Facility/Intermediate Care Facility Telephoned pt in room, pt was discharged from [facility] after a 7 day stay to [facility] for rehab, was there for 2 days and then had a syncopal episode. Pt is from home with spouse prior to hospital admission, she wishes to return to [facility] to finish her rehab and then return home with spouse. SIGNATURE: Angie Capone RN PATIENT NAME: Mona Jansen DATE: April 13, 2021 TIME: 5:33 PM PAGER/CONTACT #: [phone] [facility] 04-13-2021 Note HNO ID: [id number] Author: Radha Webb MD Service: Hospital Medicine Author Type: Physician Type: Progress Notes Filed: 04/13/2021 4:25 PM Note Text: DEPARTMENT OF HOSPITAL MEDICINE PROGRESS NOTE SERVICE DATE: 04/13/2021 SERVICE TIME: 4:20 PM Hospital Medicine/Primary Attending: Radha Webb MD NIGHT AND WEEKEND COVERAGE: IMOGENE COVERAGE: : [phone], please page attending physician. Nights: [phone], please page [place] Hospitalist Night coverage pager [phone]. Subjective Subjective Patient denies any SOB or cough No dizziness or syncopal episode. MEDICATIONS: Reviewed Objective Physical Exam Performed Objective General : No distress , alert and oriented Oral : oral mucosa moist, no ulcers Eyes: PERRLA Neck - no JVD Respiratory : b/l decreased breath sounds at lung bases CVS - S1,S2 normal , no murmer heard Abdomen :soft non tender, BS active Extremities : no leg edema Neuro : grossly normal cognition, no motor or sensory deficit Pulses - 2+ radial, 2+carotid Lines, Drains, and Airways Line Peripheral 04/11/21 Admission to Hospital Short Right Antecubital 20 Gauge 2 days Drain External Collection Device 04/11/21 2 days Reviewed lines and needs to be continued: REASONS: Telemetry DATA: Diagnostic tests reviewed for today's visit: Most recent labs Assessment/Plan Active Problems: Syncope likely due to orthostatic hypotension with component of dehydration ortho stats positive, started on iv fluids and midodrine today - cardiology following --Echocardiogram - follow on orthostatic vitals tommorow ? COVID-19 assymptomatic with no oxygen requirements - finished recent treatment ? Cardiac pacemaker in situ --2/2 to SSS ? Hyponatremia --Continue gentle IVF at 75 cc/hr ? RUPERT (acute kidney injury) (HCC) resolved Resolved Problems: * No resolved hospital problems. * Medication and Non-Pharmacologic VTE Prophylaxis/Anticoagulants Anticoagulant AND Antiplatelet Medications (From admission, onward) Start Dose Route Frequency Last Action Ordered Stop 04/12/21 0600 enoxaparin 40 mg injection (LOVENOX) (RXTEST_VTEMEDRISK) 40 mg SUBCUTANEOUS EVERY 12 HOURS Given, 04/13 0545 04/12/21 0134 -- 04/12/21 0315 graduated compression stockings (tn,[place]) 04/12/21 0145 pneumatic compression stockings ([place], [place]) VTE Prophylaxis: VTE prophylaxis appropriate Disposition: To be determined Plan of care discussed with: Patient SIGNATURE: Radha Webb MD PATIENT NAME: Mona Jansen DATE: April 13, 2021 TIME: 4:20 PM PAGER/CONTACT #: [phone] [facility] 04-13-2021 Note HNO ID: [id number] Author: Lew Humphries DO Service: Cardiovascular Disease Author Type: Physician Type: Progress Notes Filed: 04/13/2021 12:43 PM Note Text: Heart and V[facility] [place] Manoj Nuñze Department of Cardiovascular Medicine SECTION OF REGIONAL CARDIOLOGY/[facility] Consultation Note Name: Mona Jansen : 1940 Primary Physician: Suze Wiseman MD Consulting Physician: Radha Webb MD SERVICE DATE: April 13, 2021 Assessment/ Plan: 1. Vasovagal and postural syncope. BP still intermittently on the low side, 82/39 this am. Continue midodrine for now at 5mg TID and titrate if needed. Continue IV NSS. History: Mona Jansen is a 80 year old female who presents with past history of permanent pacer for SSS, hypertension, hyperlipidemia,history of DVT/PE, remote history of syncope and frequent episodes of dizziness has been brought here from [facility] rehab facility for recurrent syncopal episodes. She had two episodes of syncope and on both occasions she was at bedside commode and on one occasion she felt lightheaded and had syncopal spell when she was being assisted to get out of bed.No chest pain or palpitations or dyspnea prior to these episodes. She does admit being lightheaded whenever she changes her position. She is known to have normal EF and has no valvular heart disease. Her pacer is working normally. No history of any CAD CVA CHF COPD. She had COVID few days ago and she has been recovering from it. Her ecg shows no acute changes and no arrhythmias and her cardiac enzymes have been negative.It was felt initially that she might have been dehydrated and she was given bolus of IVF Subjective PAST MEDICAL HISTORY Diagnosis Date - Asthma Seeing Dr. Martins - Bilateral carotid artery stenosis - Diaphragmatic hernia without mention of obstruction or gangrene - DVT (deep venous thrombosis) ([facility]) 05/2018 - Generalized osteoarthrosis, unspecified site - GERD (gastroesophageal reflux disease) - Hematoma Dr. Zelaya - Hemorrhage of rectum and anus - Morbid obesity ([facility]) - MONTRELL (obstructive sleep apnea) - Other and unspecified hyperlipidemia - Overactive bladder - Pacemaker - Presence of IVC filter - Pulmonary embolism ([facility]) - Seasonal allergies Dr. Choi - SSS (sick sinus syndrome) ([facility]) Seeing Dr. Polk - SVT (supraventricular tachycardia) ([facility]) - Unspecified essential hypertension - Urinary incontinence Dr. Serrato - Vitamin D deficiency PAST SURGICAL HISTORY Procedure Laterality Date - ANESTH,PACEMAKER INSERTION - COLONOSCOP W/ OR W/O [facility] SPEC 08/03/2007 - COLONOSCOP W/ OR W/O [facility] SPEC 08/03/2007 Colonoscopy - COLONOSCOP W/ OR W/O [facility] SPEC 09/18/2015 Colonoscopy (MAC) - EGD W/O OR W/BRUSH/WASH 08/24/2011 EGD - EGD W/O OR W/BRUSH/WASH 09/18/2015 EGD (MAC) - IVC FILTER 05/2018 - PAST SURGICAL HISTORY OF 10/2013 Pacer placement - TOTAL HIP REPLACEMENT 08/13/2005 Hip replacement, total left - TOTAL KNEE REPLACEMENT 04/05/2005 Knee replacement, total left - TOTAL KNEE REPLACEMENT 01/2006 Knee replacement, total right FAMILY HISTORY Problem Relation Age of Onset - Hypertension Mother - Heart Mother AR at age 75 - Heart Father AR at age 85, sudden - Diabetes Sister Pacemaker; ?had mild AR - Heart Sister - Diabetes Maternal Uncle - Parkinson?s Disease Maternal Uncle Social History Tobacco Use - Smoking status: Never Smoker - Smokeless tobacco: Never Used Vaping Use - Vaping Use: Never used Substance Use Topics - Alcohol use: Yes Comment: ocas-monthly - Drug use: No Current Facility-Administered Medications Medication Dose Route Frequency - guaiFENesin 1,200 mg ER tab(s) (MUCINEX) 1,200 mg ORAL BID - dexAMETHasone 6 mg tab(s) (DECADRON) 6 mg ORAL DAILY - pantoprazole DR 40 mg tab(s) (PROTONIX) 40 mg ORAL DAILY (6 AM) - enoxaparin 40 mg injection (LOVENOX) 40 mg SUBCUTANEOUS q 12 HR - NaCl 0.9% iv flush bag 20 mL INTRAVENOUS PRN - sodium chloride 0.9 % (flush) 3-5 mL (BD POSIFLUSH) 3-5 mL INTRAVENOUS q 12 H - albuterol HFA 90 mcg/actuation 2 Puff (PROVENTIL HFA, VENTOLIN HFA) 2 Puff INHALATION q 4 H PRN - sodium chloride 0.9 % (flush) 2-10 mL (BD POSIFLUSH) 2-10 mL INTRAVENOUS DIRECTED PRN And - perflutren lipid microspheres 1.1 mg/mL 1.3 mL injection (DEFINITY) 1.3 mL INTRAVENOUS DIRECTED PRN - fluticasone-vilanterol 100-25 mcg/dose 1 Inhalation (BREO ELLIPTA) 1 Inhalation INHALATION DAILY - acetaminophen 650 mg tab(s) (TYLENOL) 650 mg ORAL q 6 H PRN - NaCl 0.9% iv infusion 75 mL/hr INTRAVENOUS CONTINUOUS - midodrine 5 mg tab(s) (PROAMITINE) 5 mg ORAL q 8 H Allergies As of Date: 04/11/2021 Allergen Noted Reaction AUGMENTIN [AMOXICILLIN-POT CLAVUL*05/17/2012 GI Upset GRASS POLLEN 10/09/2013 Unknown IODINE [CONTRAST DYE] 02/01/2005 MOLD 10/09/2013 Unknown SODIUM PENTOTHAL [ (more content not included)... [facility] 04-12-2021 Note HNO ID: [id number] Author: Radha Webb MD Service: Hospital Medicine Author Type: Physician Type: Plan of Care Filed: 04/12/2021 4:13 PM Note Text: SHORT HOSPITALIST PROGRESS NOTE Name: Mona Jansen SERVICE DATE: 04/12/2021 SERVICE TIME: 4:12 PM Hospital Medicine/Primary Attending: Radha Webb MD NIGHT COVERAGE BETWEEN 5.30P-7.30A Page [phone] Patient seen and eval. Reviewed orders and HANDP from this AM. 80 years old female with recent diagnosis of Covid infection, sick sinus syndrome admitted with episodes of syncope. According to patient history the etiology of syncope seems to be vasovagal syncope in the setting of orthostatic hypotension and generalized weakness related to Covid infection plus decreased fluid intake. Plan Follow-up on 2D echo Monitor orthostatic vitals Monitor on telemetry Pacemaker check per cardiology Continue with IV fluids PT OT DATA: Diagnostic tests reviewed for today's visit: Most recent labs CBC: WBC 6.48 04/12/2021 HGB 10.2 04/12/2021 HCT 31.1 04/12/2021 Platelet 134 04/12/2021 CMP: Sodium 130 04/12/2021 Potassium 3.9 04/12/2021 BUN 34 04/12/2021 Creatinine 1.01 04/12/2021 Glucose 81 04/12/2021 Chloride 99 04/12/2021 CO2 25 04/12/2021 Plan of care discussed with: Patient SIGNATURE: Radha Webb MD DATE: April 12, 2021 TIME: 4:12 PM [facility] documented as of this encounter (statuses as of 06/16/2021) [facility]12-12-2021 History of Past illness Narrative* Problem Noted Date Resolved Date Hyponatremia 04/12/2021 04/14/2021 RUPERT (acute kidney injury) 04/12/20212020 COVID-19 04/12/2021 04/14/2021 Malnutrition of mild degree 04/10/202104/01 Other pulmonary embolism without acute cor pulmo nale 05/22/2018 05/19/2021 Acute blood loss anemia 05/22/2018 05/19/19 22 DVT (deep venous thrombosis) 05/02/2018 Overview: right distal, provoked. continue coumadin 3 months Acute asthma exacerbation 11/26/20172017 Hyponatremia 11/21/2017 11/26/2017 Weakness 11/21/2017 11/26/2017 RUPERT (acute kidney injury) 11/21/20172017 Acute rhinosinusitis 11/21/2017 11/26/2017 Obesity, Class III, BMI >= 40 11/21/2017 Sepsis due to urinary tract infection 11/20/2017 11/26/2017 Obesity (BMI 35.0-39.9 without comorbidity) 12/0112/29/2016 Morbid obesity with BMI of 40.0-44.9, adult 10/3012/24/2016 Morbid obesity due to excess calories 09/14/2015 11/10/2016 Acute back pain with sciatica 06/05/2015 Syncope 11/19/2013 04/14/2021 Swelling, mass, or lump in chest 06/06/2007 02/20/2010 OVERWEIGHT 11/10/2016 documented as of this encounter (statuses as of 06/16/2021) [facility]12-12-2021 History of Past illness Narrative* Problem Noted Date Resolved Date Hyponatremia 04/12/2021 04/14/2021 RUPERT (acute kidney injury) 04/12/20212020 COVID-19 04/12/2021 04/14/2021 Malnutrition of mild degree 04/10/202104/01 Other pulmonary embolism without acute cor pulmo nale 05/22/2018 05/19/2021 Acute blood loss anemia 05/22/2018 05/19/19 DVT (deep venous thrombosis) 05/02/2018 Overview: right distal, provoked. continue coumadin 3 months Acute asthma exacerbation 11/26/20172017 Hyponatremia 11/21/2017 11/26/2017 Weakness 11/21/2017 11/26/2017 RUPERT (acute kidney injury) 11/21/20172017 Acute rhinosinusitis 11/21/2017 11/26/2017 Obesity, Class III, BMI >= 40 11/21/2017 Sepsis due to urinary tract infection 11/20/2017 11/26/2017 Obesity (BMI 35.0-39.9 without comorbidity) 12/0112/29/2016 Morbid obesity with BMI of 40.0-44.9, adult 10/3012/24/2016 Morbid obesity due to excess calories 09/14/2015 11/10/2016 Acute back pain with sciatica 06/05/2015 Swelling, mass, or lump in chest 06/06/2007 02/20/2010 OVERWEIGHT 11/10/2016 documented as of this encounter (statuses as of 08/03/2021) [facility]12-12-2021 History of Past illness Narrative* Problem Noted Date Resolved Date Hyponatremia 04/12/2021 04/14/2021 RUPERT (acute kidney injury) 04/12/20212020 COVID-19 04/12/2021 04/14/2021 Malnutrition of mild degree 04/10/202104/01 Other pulmonary embolism without acute cor pulmo nale 05/22/2018 05/19/2021 Acute blood loss anemia 05/22/2018 05/19/19 DVT (deep venous thrombosis) 05/02/2018 Overview: right distal, provoked. continue coumadin 3 months Acute asthma exacerbation 11/26/20172017 Hyponatremia 11/21/2017 11/26/2017 Weakness 11/21/2017 11/26/2017 RUPERT (acute kidney injury) 11/21/20172017 Acute rhinosinusitis 11/21/2017 11/26/2017 Obesity, Class III, BMI >= 40 11/21/2017 Sepsis due to urinary tract infection 11/20/2017 11/26/2017 Obesity (BMI 35.0-39.9 without comorbidity) 12/0112/29/2016 Morbid obesity with BMI of 40.0-44.9, adult 10/3012/24/2016 Morbid obesity due to excess calories 09/14/2015 11/10/2016 Acute back pain with sciatica 06/05/2015 Swelling, mass, or lump in chest 06/06/2007 02/20/2010 OVERWEIGHT 11/10/2016 documented as of this encounter (statuses as of 08/05/2021) [facility]12-12-2021 History of Past illness Narrative* Problem Noted Date Resolved Date Hyponatremia 04/12/2021 04/14/2021 RUPERT (acute kidney injury) 04/12/20212020 COVID-19 04/12/2021 04/14/2021 Malnutrition of mild degree 04/10/202104/01 Other pulmonary embolism without acute cor pulmo nale 05/22/2018 05/19/2021 Acute blood loss anemia 05/22/2018 05/19/19 DVT (deep venous thrombosis) 05/02/2018 Overview: right distal, provoked. continue coumadin 3 months Acute asthma exacerbation 11/26/20172017 Hyponatremia 11/21/2017 11/26/2017 Weakness 11/21/2017 11/26/2017 RUPERT (acute kidney injury) 11/21/20172017 Acute rhinosinusitis 11/21/2017 11/26/2017 Obesity, Class III, BMI >= 40 11/21/2017 Sepsis due to urinary tract infection 11/20/2017 11/26/2017 Obesity (BMI 35.0-39.9 without comorbidity) 12/0112/29/2016 Morbid obesity with BMI of 40.0-44.9, adult 10/3012/24/2016 Morbid obesity due to excess calories 09/14/2015 11/10/2016 Acute back pain with sciatica 06/05/2015 Swelling, mass, or lump in chest 06/06/2007 02/20/2010 OVERWEIGHT 11/10/2016 documented as of this encounter (statuses as of 08/05/2021) [facility] History of Past illness Narrative* Problem Noted Date Resolved Date Hyponatremia 04/12/2021 04/14/2021 RUPERT (acute kidney injury) 04/12/20212020 COVID-19 04/12/2021 04/14/2021 Malnutrition of mild degree 04/10/202104/01 Other pulmonary embolism without acute cor pulmo nale 05/22/2018 05/19/2021 Acute blood loss anemia 05/22/2018 05/19/19 22 DVT (deep venous thrombosis) 05/02/2018 Overview: right distal, provoked. continue coumadin 3 months Acute asthma exacerbation 11/26/20172017 Hyponatremia 11/21/2017 11/26/2017 Weakness 11/21/2017 11/26/2017 RUPERT (acute kidney injury) 11/21/20172017 Acute rhinosinusitis 11/21/2017 11/26/2017 Obesity, Class III, BMI >= 40 11/21/2017 Sepsis due to urinary tract infection 11/20/2017 11/26/2017 Obesity (BMI 35.0-39.9 without comorbidity) 12/0112/29/2016 Morbid obesity with BMI of 40.0-44.9, adult 10/3012/24/2016 Morbid obesity due to excess calories 09/14/2015 11/10/2016 Acute back pain with sciatica 06/05/2015 Swelling, mass, or lump in chest 06/06/2007 02/20/2010 OVERWEIGHT 11/10/2016 documented as of this encounter (statuses as of 08/21/2021) [facility]12-[facility] History of Past illness Narrative* Problem Noted Date Resolved Date Hyponatremia 04/12/2021 04/14/2021 RUPERT (acute kidney injury) 04/12/20212020 COVID-19 04/12/2021 04/14/2021 Malnutrition of mild degree 04/10/202104/01 Other pulmonary embolism without acute cor pulmo nale 05/22/2018 05/19/2021 Acute blood loss anemia 05/22/2018 05/19/19 DVT (deep venous thrombosis) 05/02/2018 Overview: right distal, provoked. continue coumadin 3 months Acute asthma exacerbation 11/26/20172017 Hyponatremia 11/21/2017 11/26/2017 Weakness 11/21/2017 11/26/2017 RUPRET (acute kidney injury) 11/21/20172017 Acute rhinosinusitis 11/21/2017 11/26/2017 Obesity, Class III, BMI >= 40 11/21/2017 Sepsis due to urinary tract infection 11/20/2017 11/26/2017 Obesity (BMI 35.0-39.9 without comorbidity) 12/0112/29/2016 Morbid obesity with BMI of 40.0-44.9, adult 10/3012/24/2016 Morbid obesity due to excess calories 09/14/2015 11/10/2016 Acute back pain with sciatica 06/05/2015 Swelling, mass, or lump in chest 06/06/2007 02/20/2010 OVERWEIGHT 11/10/2016 documented as of this encounter (statuses as of 08/21/2021) [facility] History of Past illness Narrative* Problem Noted Date Resolved Date Hyponatremia 04/12/2021 04/14/2021 RUPERT (acute kidney injury) 04/12/20212020 COVID-19 04/12/2021 04/14/2021 Malnutrition of mild degree 04/10/202104/01 Other pulmonary embolism without acute cor pulmo nale 05/22/2018 05/19/2021 Acute blood loss anemia 05/22/2018 05/19/19 DVT (deep venous thrombosis) 05/02/2018 Overview: right distal, provoked. continue coumadin 3 months Acute asthma exacerbation 11/26/20172017 Hyponatremia 11/21/2017 11/26/2017 Weakness 11/21/2017 11/26/2017 RUPERT (acute kidney injury) 11/21/20172017 Acute rhinosinusitis 11/21/2017 11/26/2017 Obesity, Class III, BMI >= 40 11/21/2017 Sepsis due to urinary tract infection 11/20/2017 11/26/2017 Obesity (BMI 35.0-39.9 without comorbidity) 12/0112/29/2016 Morbid obesity with BMI of 40.0-44.9, adult 10/3012/24/2016 Morbid obesity due to excess calories 09/14/2015 11/10/2016 Acute back pain with sciatica 06/05/2015 Swelling, mass, or lump in chest 06/06/2007 02/20/2010 OVERWEIGHT 11/10/2016 documented as of this encounter (statuses as of 08/26/2021) [facility]12[facility] History of Past illness Narrative* Problem Noted Date Resolved Date Hyponatremia 04/12/2021 04/14/2021 RUPERT (acute kidney injury) 04/12/20212020 COVID-19 04/12/2021 04/14/2021 Malnutrition of mild degree 04/10/202104/01 Other pulmonary embolism without acute cor pulmo nale 05/22/2018 05/19/2021 Acute blood loss anemia 05/22/2018 05/19/19 22 DVT (deep venous thrombosis) 05/02/2018 Overview: right distal, provoked. continue coumadin 3 months Acute asthma exacerbation 11/26/20172017 Hyponatremia 11/21/2017 11/26/2017 Weakness 11/21/2017 11/26/2017 RUPERT (acute kidney injury) 11/21/20172017 Acute rhinosinusitis 11/21/2017 11/26/2017 Obesity, Class III, BMI >= 40 11/21/2017 Sepsis due to urinary tract infection 11/20/2017 11/26/2017 Obesity (BMI 35.0-39.9 without comorbidity) 12/0112/29/2016 Morbid obesity with BMI of 40.0-44.9, adult 10/3012/24/2016 Morbid obesity due to excess calories 09/14/2015 11/10/2016 Acute back pain with sciatica 06/05/2015 Swelling, mass, or lump in chest 06/06/2007 02/20/2010 OVERWEIGHT 11/10/2016 documented as of this encounter (statuses as of 09/20/2021) [facility]12-[facility] History of Past illness Narrative* Problem Noted Date Resolved Date Hyponatremia 04/12/2021 04/14/2021 RUPERT (acute kidney injury) 04/12/20212020 COVID-19 04/12/2021 04/14/2021 Malnutrition of mild degree 04/10/202104/01 Other pulmonary embolism without acute cor pulmo nale 05/22/2018 05/19/2021 Acute blood loss anemia 05/22/2018 05/19/19 22 DVT (deep venous thrombosis) 05/02/2018 Overview: right distal, provoked. continue coumadin 3 months Acute asthma exacerbation 11/26/20172017 Hyponatremia 11/21/2017 11/26/2017 Weakness 11/21/2017 11/26/2017 RUPERT (acute kidney injury) 11/21/20172017 Acute rhinosinusitis 11/21/2017 11/26/2017 Obesity, Class III, BMI >= 40 11/21/2017 Sepsis due to urinary tract infection 11/20/2017 11/26/2017 Obesity (BMI 35.0-39.9 without comorbidity) 12/0112/29/2016 Morbid obesity with BMI of 40.0-44.9, adult 10/3012/24/2016 Morbid obesity due to excess calories 09/14/2015 11/10/2016 Acute back pain with sciatica 06/05/2015 Swelling, mass, or lump in chest 06/06/2007 02/20/2010 OVERWEIGHT 11/10/2016 documented as of this encounter (statuses as of 09/21/2021) [facility] History of Past illness Narrative* Problem Noted Date Resolved Date Hyponatremia 04/12/2021 04/14/2021 RUPERT (acute kidney injury) 04/12/20212020 COVID-19 04/12/2021 04/14/2021 Malnutrition of mild degree 04/10/202104/01 Other pulmonary embolism without acute cor pulmo nale 05/22/2018 05/19/2021 Acute blood loss anemia 05/22/2018 05/19/19 22 DVT (deep venous thrombosis) 05/02/2018 Overview: right distal, provoked. continue coumadin 3 months Acute asthma exacerbation 11/26/20172017 Hyponatremia 11/21/2017 11/26/2017 Weakness 11/21/2017 11/26/2017 RUPERT (acute kidney injury) 11/21/20172017 Acute rhinosinusitis 11/21/2017 11/26/2017 Obesity, Class III, BMI >= 40 11/21/2017 Sepsis due to urinary tract infection 11/20/2017 11/26/2017 Obesity (BMI 35.0-39.9 without comorbidity) 12/0112/29/2016 Morbid obesity with BMI of 40.0-44.9, adult 10/3012/24/2016 Morbid obesity due to excess calories 09/14/2015 11/10/2016 Acute back pain with sciatica 06/05/2015 Swelling, mass, or lump in chest 06/06/2007 02/20/2010 OVERWEIGHT 11/10/2016 documented as of this encounter (statuses as of 10/07/2021) [facility] History of Past illness Narrative* Problem Noted Date Resolved Date Hyponatremia 04/12/2021 04/14/2021 RUPERT (acute kidney injury) 04/12/20212020 COVID-19 04/12/2021 04/14/2021 Malnutrition of mild degree 04/10/202104/01 Other pulmonary embolism without acute cor pulmo nale 05/22/2018 05/19/2021 Acute blood loss anemia 05/22/2018 05/19/19 DVT (deep venous thrombosis) 05/02/2018 Overview: right distal, provoked. continue coumadin 3 months Acute asthma exacerbation 11/26/20172017 Hyponatremia 11/21/2017 11/26/2017 Weakness 11/21/2017 11/26/2017 RUPERT (acute kidney injury) 11/21/20172017 Acute rhinosinusitis 11/21/2017 11/26/2017 Obesity, Class III, BMI >= 40 11/21/2017 Sepsis due to urinary tract infection 11/20/2017 11/26/2017 Obesity (BMI 35.0-39.9 without comorbidity) 12/0112/29/2016 Morbid obesity with BMI of 40.0-44.9, adult 10/3012/24/2016 Morbid obesity due to excess calories 09/14/2015 11/10/2016 Acute back pain with sciatica 06/05/2015 Swelling, mass, or lump in chest 06/06/2007 02/20/2010 OVERWEIGHT 11/10/2016 documented as of this encounter (statuses as of 10/23/2021) [facility] History of Past illness Narrative* Problem Noted Date Resolved Date Hyponatremia 04/12/2021 04/14/2021 RUPERT (acute kidney injury) 04/12/20212020 COVID-19 04/12/2021 04/14/2021 Malnutrition of mild degree 04/10/202104/01 Other pulmonary embolism without acute cor pulmo nale 05/22/2018 05/19/2021 Acute blood loss anemia 05/22/2018 05/19/19 DVT (deep venous thrombosis) 05/02/2018 Overview: right distal, provoked. continue coumadin 3 months Acute asthma exacerbation 11/26/20172017 Hyponatremia 11/21/2017 11/26/2017 Weakness 11/21/2017 11/26/2017 RUPERT (acute kidney injury) 11/21/20172017 Acute rhinosinusitis 11/21/2017 11/26/2017 Obesity, Class III, BMI >= 40 11/21/2017 Sepsis due to urinary tract infection 11/20/2017 11/26/2017 Obesity (BMI 35.0-39.9 without comorbidity) 12/0112/29/2016 Morbid obesity with BMI of 40.0-44.9, adult 10/3012/24/2016 Morbid obesity due to excess calories 09/14/2015 11/10/2016 Acute back pain with sciatica 06/05/2015 Swelling, mass, or lump in chest 06/06/2007 02/20/2010 OVERWEIGHT 11/10/2016 documented as of this encounter (statuses as of 11/18/2021) [facility] [place]12-12-2021 History of Past illness Narrative* Problem Noted Date Resolved Date Hyponatremia 04/12/2021 04/14/2021 RUPERT (acute kidney injury) 04/12/20212020 COVID-19 04/12/2021 04/14/2021 Malnutrition of mild degree 04/10/202104/01 Other pulmonary embolism without acute cor pulmo nale 05/22/2018 05/19/2021 Acute blood loss anemia 05/22/2018 05/19/19 DVT (deep venous thrombosis) 05/02/2018 Overview: right distal, provoked. continue coumadin 3 months Acute asthma exacerbation 11/26/20172017 Hyponatremia 11/21/2017 11/26/2017 Weakness 11/21/2017 11/26/2017 RUPERT (acute kidney injury) 11/21/20172017 Acute rhinosinusitis 11/21/2017 11/26/2017 Obesity, Class III, BMI >= 40 11/21/2017 Sepsis due to urinary tract infection 11/20/2017 11/26/2017 Obesity (BMI 35.0-39.9 without comorbidity) 12/0112/29/2016 Morbid obesity with BMI of 40.0-44.9, adult 10/3012/24/2016 Morbid obesity due to excess calories 09/14/2015 11/10/2016 Acute back pain with sciatica 06/05/2015 Swelling, mass, or lump in chest 06/06/2007 02/20/2010 OVERWEIGHT 11/10/2016 documented as of this encounter (statuses as of 01/16/2022) [facility] [place]12-12-2021 History of Past illness Narrative* Problem Noted Date Resolved Date Hyponatremia 04/12/2021 04/14/2021 RUPERT (acute kidney injury) 04/12/20212020 COVID-19 04/12/2021 04/14/2021 Malnutrition of mild degree 04/10/202104/01 Other pulmonary embolism without acute cor pulmo nale 05/22/2018 05/19/2021 Acute blood loss anemia 05/22/2018 05/19/19 22 DVT (deep venous thrombosis) 05/02/2018 Overview: right distal, provoked. continue coumadin 3 months Acute asthma exacerbation 11/26/20172017 Hyponatremia 11/21/2017 11/26/2017 Weakness 11/21/2017 11/26/2017 RUPERT (acute kidney injury) 11/21/20172017 Acute rhinosinusitis 11/21/2017 11/26/2017 Obesity, Class III, BMI >= 40 11/21/2017 Sepsis due to urinary tract infection 11/20/2017 11/26/2017 Obesity (BMI 35.0-39.9 without comorbidity) 12/0112/29/2016 Morbid obesity with BMI of 40.0-44.9, adult 10/3012/24/2016 Morbid obesity due to excess calories 09/14/2015 11/10/2016 Acute back pain with sciatica 06/05/2015 Swelling, mass, or lump in chest 06/06/2007 02/20/2010 OVERWEIGHT 11/10/2016 documented as of this encounter (statuses as of 02/04/2022) [facility] [place]12-12-2021 History of Past illness Narrative* Problem Noted Date Resolved Date Hyponatremia 04/12/2021 04/14/2021 RUPERT (acute kidney injury) 04/12/20212020 COVID-19 04/12/2021 04/14/2021 Malnutrition of mild degree 04/10/202104/01 Other pulmonary embolism without acute cor pulmo nale 05/22/2018 05/19/2021 Acute blood loss anemia 05/22/2018 05/19/19 DVT (deep venous thrombosis) 05/02/2018 Overview: right distal, provoked. continue coumadin 3 months Acute asthma exacerbation 11/26/20172017 Hyponatremia 11/21/2017 11/26/2017 Weakness 11/21/2017 11/26/2017 RUPERT (acute kidney injury) 11/21/20172017 Acute rhinosinusitis 11/21/2017 11/26/2017 Obesity, Class III, BMI >= 40 11/21/2017 Sepsis due to urinary tract infection 11/20/2017 11/26/2017 Obesity (BMI 35.0-39.9 without comorbidity) 12/0112/29/2016 Morbid obesity with BMI of 40.0-44.9, adult 10/3012/24/2016 Morbid obesity due to excess calories 09/14/2015 11/10/2016 Acute back pain with sciatica 06/05/2015 Swelling, mass, or lump in chest 06/06/2007 02/20/2010 OVERWEIGHT 11/10/2016 documented as of this encounter (statuses as of 02/21/2022) [facility] [place]12-12-2021 History of Past illness Narrative* Problem Noted Date Resolved Date Hyponatremia 04/12/2021 04/14/2021 RUPERT (acute kidney injury) 04/12/20212020 COVID-19 04/12/2021 04/14/2021 Malnutrition of mild degree 04/10/202104/01 Other pulmonary embolism without acute cor pulmo nale 05/22/2018 05/19/2021 Acute blood loss anemia 05/22/2018 05/19/19 DVT (deep venous thrombosis) 05/02/2018 Overview: right distal, provoked. continue coumadin 3 months Acute asthma exacerbation 11/26/20172017 Hyponatremia 11/21/2017 11/26/2017 Weakness 11/21/2017 11/26/2017 RUPERT (acute kidney injury) 11/21/20172017 Acute rhinosinusitis 11/21/2017 11/26/2017 Obesity, Class III, BMI >= 40 11/21/2017 Sepsis due to urinary tract infection 11/20/2017 11/26/2017 Obesity (BMI 35.0-39.9 without comorbidity) 12/0112/29/2016 Morbid obesity with BMI of 40.0-44.9, adult 10/3012/24/2016 Morbid obesity due to excess calories 09/14/2015 11/10/2016 Acute back pain with sciatica 06/05/2015 Swelling, mass, or lump in chest 06/06/2007 02/20/2010 OVERWEIGHT 11/10/2016 documented as of this encounter (statuses as of 04/05/2022) [facility] [place]12-12-2021 History of Past illness Narrative* Problem Noted Date Resolved Date Hyponatremia 04/12/2021 04/14/2021 RUPERT (acute kidney injury) 04/12/20212020 COVID-19 04/12/2021 04/14/2021 Malnutrition of mild degree 04/10/202104/01 Other pulmonary embolism without acute cor pulmo nale 05/22/2018 05/19/2021 Acute blood loss anemia 05/22/2018 05/19/19 22 DVT (deep venous thrombosis) 05/02/2018 Overview: right distal, provoked. continue coumadin 3 months Acute asthma exacerbation 11/26/20172017 Hyponatremia 11/21/2017 11/26/2017 Weakness 11/21/2017 11/26/2017 RUPERT (acute kidney injury) 11/21/20172017 Acute rhinosinusitis 11/21/2017 11/26/2017 Obesity, Class III, BMI >= 40 11/21/2017 Sepsis due to urinary tract infection 11/20/2017 11/26/2017 Obesity (BMI 35.0-39.9 without comorbidity) 12/0112/29/2016 Morbid obesity with BMI of 40.0-44.9, adult 10/3012/24/2016 Morbid obesity due to excess calories 09/14/2015 11/10/2016 Acute back pain with sciatica 06/05/2015 Swelling, mass, or lump in chest 06/06/2007 02/20/2010 OVERWEIGHT 11/10/2016 documented as of this encounter (statuses as of 04/21/2022) [facility] [place]12-12-2021 History of Past illness Narrative* Problem Noted Date Resolved Date Hyponatremia 04/12/2021 04/14/2021 RUPERT (acute kidney injury) 04/12/20212020 COVID-19 04/12/2021 04/14/2021 Malnutrition of mild degree 04/10/202104/01 Other pulmonary embolism without acute cor pulmo nale 05/22/2018 05/19/2021 Acute blood loss anemia 05/22/2018 05/19/19 22 DVT (deep venous thrombosis) 05/02/2018 Overview: right distal, provoked. continue coumadin 3 months Acute asthma exacerbation 11/26/20172017 Hyponatremia 11/21/2017 11/26/2017 Weakness 11/21/2017 11/26/2017 RUPERT (acute kidney injury) 11/21/20172017 Acute rhinosinusitis 11/21/2017 11/26/2017 Obesity, Class III, BMI >= 40 11/21/2017 Sepsis due to urinary tract infection 11/20/2017 11/26/2017 Obesity (BMI 35.0-39.9 without comorbidity) 12/0112/29/2016 Morbid obesity with BMI of 40.0-44.9, adult 10/3012/24/2016 Morbid obesity due to excess calories 09/14/2015 11/10/2016 Acute back pain with sciatica 06/05/2015 Swelling, mass, or lump in chest 06/06/2007 02/20/2010 OVERWEIGHT 11/10/2016 documented as of this encounter (statuses as of 04/24/2022) [facility] [place]12-12-2021 History of Past illness Narrative* Problem Noted Date Resolved Date Hyponatremia 04/12/2021 04/14/2021 RUPERT (acute kidney injury) 04/12/20212020 COVID-19 04/12/2021 04/14/2021 Malnutrition of mild degree 04/10/202104/01 Other pulmonary embolism without acute cor pulmo nale 05/22/2018 05/19/2021 Acute blood loss anemia 05/22/2018 05/19/19 DVT (deep venous thrombosis) 05/02/2018 Overview: right distal, provoked. continue coumadin 3 months Acute asthma exacerbation 11/26/20172017 Hyponatremia 11/21/2017 11/26/2017 Weakness 11/21/2017 11/26/2017 RUPERT (acute kidney injury) 11/21/20172017 Acute rhinosinusitis 11/21/2017 11/26/2017 Obesity, Class III, BMI >= 40 11/21/2017 Sepsis due to urinary tract infection 11/20/2017 11/26/2017 Obesity (BMI 35.0-39.9 without comorbidity) 12/0112/29/2016 Morbid obesity with BMI of 40.0-44.9, adult 10/3012/24/2016 Morbid obesity due to excess calories 09/14/2015 11/10/2016 Acute back pain with sciatica 06/05/2015 Swelling, mass, or lump in chest 06/06/2007 02/20/2010 OVERWEIGHT 11/10/2016 documented as of this encounter (statuses as of 05/04/2022) [facility] [place]12-12-2021 History of Past illness Narrative* Problem Noted Date Resolved Date Hyponatremia 04/12/2021 04/14/2021 RUPERT (acute kidney injury) 04/12/20212020 COVID-19 04/12/2021 04/14/2021 Malnutrition of mild degree 04/10/202104/01 Other pulmonary embolism without acute cor pulmo nale 05/22/2018 05/19/2021 Acute blood loss anemia 05/22/2018 05/19/19 DVT (deep venous thrombosis) 05/02/2018 Overview: right distal, provoked. continue coumadin 3 months Acute asthma exacerbation 11/26/20172017 Hyponatremia 11/21/2017 11/26/2017 Weakness 11/21/2017 11/26/2017 RUPERT (acute kidney injury) 11/21/20172017 Acute rhinosinusitis 11/21/2017 11/26/2017 Obesity, Class III, BMI >= 40 11/21/2017 Sepsis due to urinary tract infection 11/20/2017 11/26/2017 Obesity (BMI 35.0-39.9 without comorbidity) 12/0112/29/2016 Morbid obesity with BMI of 40.0-44.9, adult 10/3012/24/2016 Morbid obesity due to excess calories 09/14/2015 11/10/2016 Acute back pain with sciatica 06/05/2015 Swelling, mass, or lump in chest 06/06/2007 02/20/2010 OVERWEIGHT 11/10/2016 documented as of this encounter (statuses as of 05/05/2022) [facility] [place]12-12-2021 History of Past illness Narrative* Problem Noted Date Resolved Date Hyponatremia 04/12/2021 04/14/2021 RUPERT (acute kidney injury) 04/12/20212020 COVID-19 04/12/2021 04/14/2021 Malnutrition of mild degree 04/10/202104/01 Other pulmonary embolism without acute cor pulmo nale 05/22/2018 05/19/2021 Acute blood loss anemia 05/22/2018 05/19/19 DVT (deep venous thrombosis) 05/02/2018 Overview: right distal, provoked. continue coumadin 3 months Acute asthma exacerbation 11/26/20172017 Hyponatremia 11/21/2017 11/26/2017 Weakness 11/21/2017 11/26/2017 RUPERT (acute kidney injury) 11/21/20172017 Acute rhinosinusitis 11/21/2017 11/26/2017 Obesity, Class III, BMI >= 40 11/21/2017 Sepsis due to urinary tract infection 11/20/2017 11/26/2017 Obesity (BMI 35.0-39.9 without comorbidity) 12/0112/29/2016 Morbid obesity with BMI of 40.0-44.9, adult 10/3012/24/2016 Morbid obesity due to excess calories 09/14/2015 11/10/2016 Acute back pain with sciatica 06/05/2015 Swelling, mass, or lump in chest 06/06/2007 02/20/2010 OVERWEIGHT 11/10/2016 documented as of this encounter (statuses as of 05/12/2022) [facility] [place]12-12-2021 History of Past illness Narrative* Problem Noted Date Resolved Date Hyponatremia 04/12/2021 04/14/2021 RUPERT (acute kidney injury) 04/12/20212020 COVID-19 04/12/2021 04/14/2021 Malnutrition of mild degree 04/10/202104/01 Other pulmonary embolism without acute cor pulmo nale 05/22/2018 05/19/2021 Acute blood loss anemia 05/22/2018 05/19/19 DVT (deep venous thrombosis) 05/02/2018 Overview: right distal, provoked. continue coumadin 3 months Acute asthma exacerbation 11/26/20172017 Hyponatremia 11/21/2017 11/26/2017 Weakness 11/21/2017 11/26/2017 RUPERT (acute kidney injury) 11/21/20172017 Acute rhinosinusitis 11/21/2017 11/26/2017 Obesity, Class III, BMI >= 40 11/21/2017 Sepsis due to urinary tract infection 11/20/2017 11/26/2017 Obesity (BMI 35.0-39.9 without comorbidity) 12/0112/29/2016 Morbid obesity with BMI of 40.0-44.9, adult 10/3012/24/2016 Morbid obesity due to excess calories 09/14/2015 11/10/2016 Acute back pain with sciatica 06/05/2015 Swelling, mass, or lump in chest 06/06/2007 02/20/2010 OVERWEIGHT 11/10/2016 documented as of this encounter (statuses as of 05/17/2022) [facility] [place]12-12-2021 History of Past illness Narrative* Problem Noted Date Resolved Date Hyponatremia 04/12/2021 04/14/2021 RUPERT (acute kidney injury) 04/12/20212020 COVID-19 04/12/2021 04/14/2021 Malnutrition of mild degree 04/10/202104/01 Other pulmonary embolism without acute cor pulmo nale 05/22/2018 05/19/2021 Acute blood loss anemia 05/22/2018 05/19/19 22 DVT (deep venous thrombosis) 05/02/2018 Overview: right distal, provoked. continue coumadin 3 months Acute asthma exacerbation 11/26/20172017 Hyponatremia 11/21/2017 11/26/2017 Weakness 11/21/2017 11/26/2017 RUPERT (acute kidney injury) 11/21/20172017 Acute rhinosinusitis 11/21/2017 11/26/2017 Obesity, Class III, BMI >= 40 11/21/2017 Sepsis due to urinary tract infection 11/20/2017 11/26/2017 Obesity (BMI 35.0-39.9 without comorbidity) 12/0112/29/2016 Morbid obesity with BMI of 40.0-44.9, adult 10/3012/24/2016 Morbid obesity due to excess calories 09/14/2015 11/10/2016 Acute back pain with sciatica 06/05/2015 Swelling, mass, or lump in chest 06/06/2007 02/20/2010 OVERWEIGHT 11/10/2016 documented as of this encounter (statuses as of 06/02/2022) [facility] [place]12-12-2021 History of Past illness Narrative* Problem Noted Date Resolved Date Hyponatremia 04/12/2021 04/14/2021 RUPERT (acute kidney injury) 04/12/20212020 COVID-19 04/12/2021 04/14/2021 Malnutrition of mild degree 04/10/202104/01 Other pulmonary embolism without acute cor pulmo nale 05/22/2018 05/19/2021 Acute blood loss anemia 05/22/2018 05/19/19 DVT (deep venous thrombosis) 05/02/2018 Overview: right distal, provoked. continue coumadin 3 months Acute asthma exacerbation 11/26/20172017 Hyponatremia 11/21/2017 11/26/2017 Weakness 11/21/2017 11/26/2017 RUPERT (acute kidney injury) 11/21/20172017 Acute rhinosinusitis 11/21/2017 11/26/2017 Obesity, Class III, BMI >= 40 11/21/2017 Sepsis due to urinary tract infection 11/20/2017 11/26/2017 Obesity (BMI 35.0-39.9 without comorbidity) 12/0112/29/2016 Morbid obesity with BMI of 40.0-44.9, adult 10/3012/24/2016 Morbid obesity due to excess calories 09/14/2015 11/10/2016 Acute back pain with sciatica 06/05/2015 Swelling, mass, or lump in chest 06/06/2007 02/20/2010 OVERWEIGHT 11/10/2016 documented as of this encounter (statuses as of 06/10/2022) [facility] [place]12-12-2021 History of Past illness Narrative* Problem Noted Date Resolved Date Hyponatremia 04/12/2021 04/14/2021 RUPERT (acute kidney injury) 04/12/20212020 COVID-19 04/12/2021 04/14/2021 Malnutrition of mild degree 04/10/202104/01 Other pulmonary embolism without acute cor pulmo nale 05/22/2018 05/19/2021 Acute blood loss anemia 05/22/2018 05/19/19 DVT (deep venous thrombosis) 05/02/2018 Overview: right distal, provoked. continue coumadin 3 months Acute asthma exacerbation 11/26/20172017 Hyponatremia 11/21/2017 11/26/2017 Weakness 11/21/2017 11/26/2017 RUPERT (acute kidney injury) 11/21/20172017 Acute rhinosinusitis 11/21/2017 11/26/2017 Obesity, Class III, BMI >= 40 11/21/2017 Sepsis due to urinary tract infection 11/20/2017 11/26/2017 Obesity (BMI 35.0-39.9 without comorbidity) 12/0112/29/2016 Morbid obesity with BMI of 40.0-44.9, adult 10/3012/24/2016 Morbid obesity due to excess calories 09/14/2015 11/10/2016 Acute back pain with sciatica 06/05/2015 Swelling, mass, or lump in chest 06/06/2007 02/20/2010 OVERWEIGHT 11/10/2016 documented as of this encounter (statuses as of 06/22/2022) [facility] [place]12-12-2021 History of Past illness Narrative* Problem Noted Date Resolved Date Hyponatremia 04/12/2021 04/14/2021 RUPERT (acute kidney injury) 04/12/20212020 COVID-19 04/12/2021 04/14/2021 Malnutrition of mild degree 04/10/202104/01 Other pulmonary embolism without acute cor pulmo nale 05/22/2018 05/19/2021 Acute blood loss anemia 05/22/2018 05/19/19 22 DVT (deep venous thrombosis) 05/02/2018 Overview: right distal, provoked. continue coumadin 3 months Acute asthma exacerbation 11/26/20172017 Hyponatremia 11/21/2017 11/26/2017 Weakness 11/21/2017 11/26/2017 RUPERT (acute kidney injury) 11/21/20172017 Acute rhinosinusitis 11/21/2017 11/26/2017 Obesity, Class III, BMI >= 40 11/21/2017 Sepsis due to urinary tract infection 11/20/2017 11/26/2017 Obesity (BMI 35.0-39.9 without comorbidity) 12/0112/29/2016 Morbid obesity with BMI of 40.0-44.9, adult 10/3012/24/2016 Morbid obesity due to excess calories 09/14/2015 11/10/2016 Acute back pain with sciatica 06/05/2015 Swelling, mass, or lump in chest 06/06/2007 02/20/2010 OVERWEIGHT 11/10/2016 documented as of this encounter (statuses as of 07/19/2022) [facility] [place]12-12-2021 History of Past illness Narrative* Problem Noted Date Resolved Date Hyponatremia 04/12/2021 04/14/2021 RUPERT (acute kidney injury) 04/12/20212020 COVID-19 04/12/2021 04/14/2021 Malnutrition of mild degree 04/10/202104/01 Other pulmonary embolism without acute cor pulmo nale 05/22/2018 05/19/2021 Acute blood loss anemia 05/22/2018 05/19/19 22 DVT (deep venous thrombosis) 05/02/2018 Overview: right distal, provoked. continue coumadin 3 months Acute asthma exacerbation 11/26/20172017 Hyponatremia 11/21/2017 11/26/2017 Weakness 11/21/2017 11/26/2017 RUPERT (acute kidney injury) 11/21/20172017 Acute rhinosinusitis 11/21/2017 11/26/2017 Obesity, Class III, BMI >= 40 11/21/2017 Sepsis due to urinary tract infection 11/20/2017 11/26/2017 Obesity (BMI 35.0-39.9 without comorbidity) 12/0112/29/2016 Morbid obesity with BMI of 40.0-44.9, adult 10/3012/24/2016 Morbid obesity due to excess calories 09/14/2015 11/10/2016 Acute back pain with sciatica 06/05/2015 Swelling, mass, or lump in chest 06/06/2007 02/20/2010 OVERWEIGHT 11/10/2016 documented as of this encounter (statuses as of 07/20/2022) [facility] [place]12-12-2021 History of Past illness Narrative* Problem Noted Date Resolved Date Hyponatremia 04/12/2021 04/14/2021 RUPERT (acute kidney injury) 04/12/20212020 COVID-19 04/12/2021 04/14/2021 Malnutrition of mild degree 04/10/202104/01 Other pulmonary embolism without acute cor pulmo nale 05/22/2018 05/19/2021 Acute blood loss anemia 05/22/2018 05/19/19 DVT (deep venous thrombosis) 05/02/2018 Overview: right distal, provoked. continue coumadin 3 months Acute asthma exacerbation 11/26/20172017 Hyponatremia 11/21/2017 11/26/2017 Weakness 11/21/2017 11/26/2017 RUPERT (acute kidney injury) 11/21/20172017 Acute rhinosinusitis 11/21/2017 11/26/2017 Obesity, Class III, BMI >= 40 11/21/2017 Sepsis due to urinary tract infection 11/20/2017 11/26/2017 Obesity (BMI 35.0-39.9 without comorbidity) 12/0112/29/2016 Morbid obesity with BMI of 40.0-44.9, adult 10/3012/24/2016 Morbid obesity due to excess calories 09/14/2015 11/10/2016 Acute back pain with sciatica 06/05/2015 Swelling, mass, or lump in chest 06/06/2007 02/20/2010 OVERWEIGHT 11/10/2016 documented as of this encounter (statuses as of 07/30/2022) [facility] [place]12-12-2021 History of Past illness Narrative* Problem Noted Date Resolved Date Hyponatremia 04/12/2021 04/14/2021 RUPRET (acute kidney injury) 04/12/20212020 COVID-19 04/12/2021 04/14/2021 Malnutrition of mild degree 04/10/202104/01 Other pulmonary embolism without acute cor pulmo nale 05/22/2018 05/19/2021 Acute blood loss anemia 05/22/2018 05/19/19 DVT (deep venous thrombosis) 05/02/2018 Overview: right distal, provoked. continue coumadin 3 months Acute asthma exacerbation 11/26/20172017 Hyponatremia 11/21/2017 11/26/2017 Weakness 11/21/2017 11/26/2017 RUPERT (acute kidney injury) 11/21/20172017 Acute rhinosinusitis 11/21/2017 11/26/2017 Obesity, Class III, BMI >= 40 11/21/2017 Sepsis due to urinary tract infection 11/20/2017 11/26/2017 Obesity (BMI 35.0-39.9 without comorbidity) 12/0112/29/2016 Morbid obesity with BMI of 40.0-44.9, adult 10/3012/24/2016 Morbid obesity due to excess calories 09/14/2015 11/10/2016 Acute back pain with sciatica 06/05/2015 Swelling, mass, or lump in chest 06/06/2007 02/20/2010 OVERWEIGHT 11/10/2016 documented as of this encounter (statuses as of 08/24/2022) [facility] [place]12-12-2021 History of Past illness Narrative* Problem Noted Date Resolved Date Hyponatremia 04/12/2021 04/14/2021 RUPERT (acute kidney injury) 04/12/20212020 COVID-19 04/12/2021 04/14/2021 Malnutrition of mild degree 04/10/202104/01 Other pulmonary embolism without acute cor pulmo nale 05/22/2018 05/19/2021 Acute blood loss anemia 05/22/2018 05/19/19 DVT (deep venous thrombosis) 05/02/2018 Overview: right distal, provoked. continue coumadin 3 months Acute asthma exacerbation 11/26/20172017 Hyponatremia 11/21/2017 11/26/2017 Weakness 11/21/2017 11/26/2017 RUPERT (acute kidney injury) 11/21/20172017 Acute rhinosinusitis 11/21/2017 11/26/2017 Obesity, Class III, BMI >= 40 11/21/2017 Sepsis due to urinary tract infection 11/20/2017 11/26/2017 Obesity (BMI 35.0-39.9 without comorbidity) 12/0112/29/2016 Morbid obesity with BMI of 40.0-44.9, adult 10/3012/24/2016 Morbid obesity due to excess calories 09/14/2015 11/10/2016 Acute back pain with sciatica 06/05/2015 Swelling, mass, or lump in chest 06/06/2007 02/20/2010 OVERWEIGHT 11/10/2016 documented as of this encounter (statuses as of 09/08/2022) [facility] [place]12-12-2021 History of Past illness Narrative* Problem Noted Date Resolved Date Hyponatremia 04/12/2021 04/14/2021 RUPERT (acute kidney injury) 04/12/20212020 COVID-19 04/12/2021 04/14/2021 Malnutrition of mild degree 04/10/202104/01 Other pulmonary embolism without acute cor pulmo nale 05/22/2018 05/19/2021 Acute blood loss anemia 05/22/2018 05/19/19 DVT (deep venous thrombosis) 05/02/2018 Overview: right distal, provoked. continue coumadin 3 months Acute asthma exacerbation 11/26/20172017 Hyponatremia 11/21/2017 11/26/2017 Weakness 11/21/2017 11/26/2017 RUPERT (acute kidney injury) 11/21/20172017 Acute rhinosinusitis 11/21/2017 11/26/2017 Obesity, Class III, BMI >= 40 11/21/2017 Sepsis due to urinary tract infection 11/20/2017 11/26/2017 Obesity (BMI 35.0-39.9 without comorbidity) 12/0112/29/2016 Morbid obesity with BMI of 40.0-44.9, adult 10/3012/24/2016 Morbid obesity due to excess calories 09/14/2015 11/10/2016 Acute back pain with sciatica 06/05/2015 Swelling, mass, or lump in chest 06/06/2007 02/20/2010 OVERWEIGHT 11/10/2016 documented as of this encounter (statuses as of 09/10/2022) [facility] [place]12-12-2021 History of Past illness Narrative* Problem Noted Date Resolved Date Hyponatremia 04/12/2021 04/14/2021 RUPERT (acute kidney injury) 04/12/20212020 COVID-19 04/12/2021 04/14/2021 Malnutrition of mild degree 04/10/202104/01 Other pulmonary embolism without acute cor pulmo nale 05/22/2018 05/19/2021 Acute blood loss anemia 05/22/2018 05/19/19 22 DVT (deep venous thrombosis) 05/02/2018 Overview: right distal, provoked. continue coumadin 3 months Acute asthma exacerbation 11/26/20172017 Hyponatremia 11/21/2017 11/26/2017 Weakness 11/21/2017 11/26/2017 RUPERT (acute kidney injury) 11/21/20172017 Acute rhinosinusitis 11/21/2017 11/26/2017 Obesity, Class III, BMI >= 40 11/21/2017 Sepsis due to urinary tract infection 11/20/2017 11/26/2017 Obesity (BMI 35.0-39.9 without comorbidity) 12/0112/29/2016 Morbid obesity with BMI of 40.0-44.9, adult 10/3012/24/2016 Morbid obesity due to excess calories 09/14/2015 11/10/2016 Acute back pain with sciatica 06/05/2015 Swelling, mass, or lump in chest 06/06/2007 02/20/2010 OVERWEIGHT 11/10/2016 documented as of this encounter (statuses as of 10/05/2022) [facility] [place]12-12-[facility]21 History of Past illness Narrative* Problem Noted Date Resolved Date Hyponatremia 04/12/2021 04/14/2021 RUPERT (acute kidney injury) 04/12/20212020 COVID-19 04/12/2021 04/14/2021 Malnutrition of mild degree 04/10/202104/01 Other pulmonary embolism without acute cor pulmo nale 05/22/2018 05/19/2021 Acute blood loss anemia 05/22/2018 05/19/19 DVT (deep venous thrombosis) 05/02/2018 Overview: right distal, provoked. continue coumadin 3 months Acute asthma exacerbation 11/26/20172017 Hyponatremia 11/21/2017 11/26/2017 Weakness 11/21/2017 11/26/2017 RUPERT (acute kidney injury) 11/21/20172017 Acute rhinosinusitis 11/21/2017 11/26/2017 Obesity, Class III, BMI >= 40 11/21/2017 Sepsis due to urinary tract infection 11/20/2017 11/26/2017 Obesity (BMI 35.0-39.9 without comorbidity) 12/0112/29/2016 Morbid obesity with BMI of 40.0-44.9, adult 10/3012/24/2016 Morbid obesity due to excess calories 09/14/2015 11/10/2016 Acute back pain with sciatica 06/05/2015 Swelling, mass, or lump in chest 06/06/2007 02/20/2010 OVERWEIGHT 11/10/2016 documented as of this encounter (statuses as of 10/14/2022) [facility]12-12-2021 History of Past illness Narrative* Problem Noted Date Resolved Date Hyponatremia 04/12/2021 04/14/2021 RUPERT (acute kidney injury) 04/12/20212020 COVID-19 04/12/2021 04/14/2021 Malnutrition of mild degree 04/10/202104/01 Other pulmonary embolism without acute cor pulmo nale 05/22/2018 05/19/2021 Acute blood loss anemia 05/22/2018 05/19/19 DVT (deep venous thrombosis) 05/02/2018 Overview: right distal, provoked. continue coumadin 3 months Acute asthma exacerbation 11/26/20172017 Hyponatremia 11/21/2017 11/26/2017 Weakness 11/21/2017 11/26/2017 RUPERT (acute kidney injury) 11/21/20172017 Acute rhinosinusitis 11/21/2017 11/26/2017 Obesity, Class III, BMI >= 40 11/21/2017 Sepsis due to urinary tract infection 11/20/2017 11/26/2017 Obesity (BMI 35.0-39.9 without comorbidity) 12/0112/29/2016 Morbid obesity with BMI of 40.0-44.9, adult 10/3012/24/2016 Morbid obesity due to excess calories 09/14/2015 11/10/2016 Acute back pain with sciatica 06/05/2015 Swelling, mass, or lump in chest 06/06/2007 02/20/2010 OVERWEIGHT 11/10/2016 documented as of this encounter (statuses as of 10/28/2022) [facility]12-12-2021 History of Past illness Narrative* Problem Noted Date Resolved Date Hyponatremia 04/12/2021 04/14/2021 RUPERT (acute kidney injury) 04/12/20212020 COVID-19 04/12/2021 04/14/2021 Malnutrition of mild degree 04/10/202104/01 Other pulmonary embolism without acute cor pulmo nale 05/22/2018 05/19/2021 Acute blood loss anemia 05/22/2018 05/19/19 22 DVT (deep venous thrombosis) 05/02/2018 Overview: right distal, provoked. continue coumadin 3 months Acute asthma exacerbation 11/26/20172017 Hyponatremia 11/21/2017 11/26/2017 Weakness 11/21/2017 11/26/2017 RUPERT (acute kidney injury) 11/21/20172017 Acute rhinosinusitis 11/21/2017 11/26/2017 Obesity, Class III, BMI >= 40 11/21/2017 Sepsis due to urinary tract infection 11/20/2017 11/26/2017 Obesity (BMI 35.0-39.9 without comorbidity) 12/0112/29/2016 Morbid obesity with BMI of 40.0-44.9, adult 10/3012/24/2016 Morbid obesity due to excess calories 09/14/2015 11/10/2016 Acute back pain with sciatica 06/05/2015 Swelling, mass, or lump in chest 06/06/2007 02/20/2010 OVERWEIGHT 11/10/2016 documented as of this encounter (statuses as of 10/29/2022) [facility]12-12-2021 History of Past illness Narrative* Problem Noted Date Resolved Date Hyponatremia 04/12/2021 04/14/2021 RUPERT (acute kidney injury) 04/12/20212020 COVID-19 04/12/2021 04/14/2021 Malnutrition of mild degree 04/10/202104/01 Other pulmonary embolism without acute cor pulmo nale 05/22/2018 05/19/2021 Acute blood loss anemia 05/22/2018 05/19/19 22 DVT (deep venous thrombosis) 05/02/2018 Overview: right distal, provoked. continue coumadin 3 months Acute asthma exacerbation 11/26/20172017 Hyponatremia 11/21/2017 11/26/2017 Weakness 11/21/2017 11/26/2017 RUPERT (acute kidney injury) 11/21/20172017 Acute rhinosinusitis 11/21/2017 11/26/2017 Obesity, Class III, BMI >= 40 11/21/2017 Sepsis due to urinary tract infection 11/20/2017 11/26/2017 Obesity (BMI 35.0-39.9 without comorbidity) 12/0112/29/2016 Morbid obesity with BMI of 40.0-44.9, adult 10/3012/24/2016 Morbid obesity due to excess calories 09/14/2015 11/10/2016 Acute back pain with sciatica 06/05/2015 Swelling, mass, or lump in chest 06/06/2007 02/20/2010 OVERWEIGHT 11/10/2016 documented as of this encounter (statuses as of 11/01/2022) [facility]12-12-2021 History of Past illness Narrative* Problem Noted Date Resolved Date Hyponatremia 04/12/2021 04/14/2021 RUPERT (acute kidney injury) 04/12/20212020 COVID-19 04/12/2021 04/14/2021 Malnutrition of mild degree 04/10/202104/01 Other pulmonary embolism without acute cor pulmo nale 05/22/2018 05/19/2021 Acute blood loss anemia 05/22/2018 05/19/19 22 DVT (deep venous thrombosis) 05/02/2018 Overview: right distal, provoked. continue coumadin 3 months Acute asthma exacerbation 11/26/20172017 Hyponatremia 11/21/2017 11/26/2017 Weakness 11/21/2017 11/26/2017 RUPERT (acute kidney injury) 11/21/20172017 Acute rhinosinusitis 11/21/2017 11/26/2017 Obesity, Class III, BMI >= 40 11/21/2017 Sepsis due to urinary tract infection 11/20/2017 11/26/2017 Obesity (BMI 35.0-39.9 without comorbidity) 12/0112/29/2016 Morbid obesity with BMI of 40.0-44.9, adult 10/3012/24/2016 Morbid obesity due to excess calories 09/14/2015 11/10/2016 Acute back pain with sciatica 06/05/2015 Swelling, mass, or lump in chest 06/06/2007 02/20/2010 OVERWEIGHT 11/10/2016 documented as of this encounter (statuses as of 11/01/2022) [facility]12-12-2021 History of Past illness Narrative* Problem Noted Date Resolved Date Hyponatremia 04/12/2021 04/14/2021 RUPERT (acute kidney injury) 04/12/20212020 COVID-19 04/12/2021 04/14/2021 Malnutrition of mild degree 04/10/202104/01 Other pulmonary embolism without acute cor pulmo nale 05/22/2018 05/19/2021 Acute blood loss anemia 05/22/2018 05/19/19 DVT (deep venous thrombosis) 05/02/2018 Overview: right distal, provoked. continue coumadin 3 months Acute asthma exacerbation 11/26/20172017 Hyponatremia 11/21/2017 11/26/2017 Weakness 11/21/2017 11/26/2017 RUPERT (acute kidney injury) 11/21/20172017 Acute rhinosinusitis 11/21/2017 11/26/2017 Obesity, Class III, BMI >= 40 11/21/2017 Sepsis due to urinary tract infection 11/20/2017 11/26/2017 Obesity (BMI 35.0-39.9 without comorbidity) 12/0112/29/2016 Morbid obesity with BMI of 40.0-44.9, adult 10/3012/24/2016 Morbid obesity due to excess calories 09/14/2015 11/10/2016 Acute back pain with sciatica 06/05/2015 Swelling, mass, or lump in chest 06/06/2007 02/20/2010 OVERWEIGHT 11/10/2016 documented as of this encounter (statuses as of 11/01/2022) [facility]12-12-2021 History of Past illness Narrative* Problem Noted Date Diagnosed Date Resolved Date Hyponatremia 04/12/2021 04/14/2021 RUPERT (acute kidney injury) 04/12/2021 COVID-19 04/12/2021 04/14/2021 Malnutrition of mild degree 04/10/2021 04/14/2021 Other pulmonary embolism wit hout acute cor pulmonale 05/22/2018 05/19/2021 Acute blood loss anemia 05/22/201805/02 DVT (deep venous thrombosis) 05/02/2018 05/19/2021 Overview: right distal, provoked. continue coumadin 3 months Acute asthma exacerbation 11/26/2017 Hyponatremia 11/21/2017 11/26/2017 Weakness 11/21/2017 11/26/2017 RUPERT (acute kidney injury) 11/21/2017 Acute rhinosinusitis 11/21/2017 018 Obesity, Class III, BMI >= 40 11/21/2017 05/19/2021 Sepsis due to urinary tract infection 11/20/2017 11/26/2017 Obesity (BMI 35.0-39.9 without comorbidity) 12/24/2016 12/29/2016 Morbid obesity with BMI of 40.0-44.9, adult 11/10/2016 12/24/2016 Morbid obesity due to excess calories 09/14/2015 11/10/2016 Acute back pain with sciatica 06/05/2015 05/19/2021 Swelling, mass, or lump in chest 06/06/2007 02/20/2010 OVERWEIGHT 11/10/2016 documented as of this encounter (statuses as of 11/10/2022) [facility]12-12-2021 History of Past illness Narrative* Problem Noted Date Diagnosed Date Resolved Date Hyponatremia 04/12/2021 04/14/2021 RUPERT (acute kidney injury) 04/12/2021 COVID-19 04/12/2021 04/14/2021 Malnutrition of mild degree 04/10/2021 04/14/2021 Other pulmonary embolism wit hout acute cor pulmonale 05/22/2018 05/19/2021 Acute blood loss anemia 05/22/201805/02 DVT (deep venous thrombosis) 05/02/2018 05/19/2021 Overview: right distal, provoked. continue coumadin 3 months Acute asthma exacerbation 11/26/2017 Hyponatremia 11/21/2017 11/26/2017 Weakness 11/21/2017 11/26/2017 RUPERT (acute kidney injury) 11/21/2017 Acute rhinosinusitis 11/21/2017 018 Obesity, Class III, BMI >= 40 11/21/2017 05/19/2021 Sepsis due to urinary tract infection 11/20/2017 11/26/2017 Obesity (BMI 35.0-39.9 without comorbidity) 12/24/2016 12/29/2016 Morbid obesity with BMI of 40.0-44.9, adult 11/10/2016 12/24/2016 Morbid obesity due to excess calories 09/14/2015 11/10/2016 Acute back pain with sciatica 06/05/2015 05/19/2021 Swelling, mass, or lump in chest 06/06/2007 02/20/2010 OVERWEIGHT 11/10/2016 documented as of this encounter (statuses as of 12/20/2022) [facility]12-12-2021 History of Past illness Narrative* Problem Noted Date Diagnosed Date Resolved Date Hyponatremia 04/12/2021 04/14/2021 RUPERT (acute kidney injury) 04/12/2021 COVID-19 04/12/2021 04/14/2021 Malnutrition of mild degree 04/10/2021 04/14/2021 Other pulmonary embolism wit hout acute cor pulmonale 05/22/2018 05/19/2021 Acute blood loss anemia 05/22/201805/02 DVT (deep venous thrombosis) 05/02/2018 05/19/2021 Overview: right distal, provoked. continue coumadin 3 months Acute asthma exacerbation 11/26/2017 Hyponatremia 11/21/2017 11/26/2017 Weakness 11/21/2017 11/26/2017 RUPERT (acute kidney injury) 11/21/2017 Acute rhinosinusitis 11/21/2017 018 Obesity, Class III, BMI >= 40 11/21/2017 05/19/2021 Sepsis due to urinary tract infection 11/20/2017 11/26/2017 Obesity (BMI 35.0-39.9 without comorbidity) 12/24/2016 12/29/2016 Morbid obesity with BMI of 40.0-44.9, adult 11/10/2016 12/24/2016 Morbid obesity due to excess calories 09/14/2015 11/10/2016 Acute back pain with sciatica 06/05/2015 05/19/2021 Swelling, mass, or lump in chest 06/06/2007 02/20/2010 OVERWEIGHT 11/10/2016 documented as of this encounter (statuses as of 01/17/2023) [facility]12-12-2021 History of Past illness Narrative* Problem Noted Date Diagnosed Date Resolved Date Hyponatremia 04/12/2021 04/14/2021 RUPERT (acute kidney injury) 04/12/2021 COVID-19 04/12/2021 04/14/2021 Malnutrition of mild degree 04/10/2021 04/14/2021 Other pulmonary embolism wit hout acute cor pulmonale 05/22/2018 05/19/2021 Acute blood loss anemia 05/22/201805/02 DVT (deep venous thrombosis) 05/02/2018 05/19/2021 Overview: right distal, provoked. continue coumadin 3 months Acute asthma exacerbation 11/26/2017 Hyponatremia 11/21/2017 11/26/2017 Weakness 11/21/2017 11/26/2017 RUPERT (acute kidney injury) 11/21/2017 Acute rhinosinusitis 11/21/2017 018 Obesity, Class III, BMI >= 40 11/21/2017 05/19/2021 Sepsis due to urinary tract infection (HCC) 11/20/2017 11/26/2017 Obesity (BMI 35.0-39.9 without comorbidity) 12/24/2016 12/29/2016 Morbid obesity with BMI of 40.0-44.9, adult 11/10/2016 12/24/2016 Morbid obesity due to excess calories 09/14/2015 11/10/2016 Acute back pain with sciatica 06/05/2015 05/19/2021 Swelling, mass, or lump in chest 06/06/2007 02/20/2010 OVERWEIGHT 11/10/2016 documented as of this encounter (statuses as of 02/10/2023) [facility]12-12-2021 History of Past illness Narrative* Problem Noted Date Diagnosed Date Resolved Date Hyponatremia 04/12/2021 04/14/2021 RUPERT (acute kidney injury) 04/12/2021 COVID-19 04/12/2021 04/14/2021 Malnutrition of mild degree 04/10/2021 04/14/2021 Other pulmonary embolism wit hout acute cor pulmonale 05/22/2018 05/19/2021 Acute blood loss anemia 05/22/201805/02 DVT (deep venous thrombosis) 05/02/2018 05/19/2021 Overview: right distal, provoked. continue coumadin 3 months Acute asthma exacerbation 11/26/2017 Hyponatremia 11/21/2017 11/26/2017 Weakness 11/21/2017 11/26/2017 RUPERT (acute kidney injury) 11/21/2017 Acute rhinosinusitis 11/21/2017 018 Obesity, Class III, BMI >= 40 11/21/2017 05/19/2021 Sepsis due to urinary tract infection (HCC) 11/20/2017 11/26/2017 Obesity (BMI 35.0-39.9 without comorbidity) 12/24/2016 12/29/2016 Morbid obesity with BMI of 40.0-44.9, adult 11/10/2016 12/24/2016 Morbid obesity due to excess calories 09/14/2015 11/10/2016 Acute back pain with sciatica 06/05/2015 05/19/2021 Swelling, mass, or lump in chest 06/06/2007 02/20/2010 OVERWEIGHT 11/10/2016 documented as of this encounter (statuses as of 02/23/2023) [facility]12-12-2021 History of Past illness Narrative* Problem Noted Date Diagnosed Date Resolved Date Hyponatremia 04/12/2021 04/14/2021 RUPERT (acute kidney injury) 04/12/2021 COVID-19 04/12/2021 04/14/2021 Malnutrition of mild degree 04/10/2021 04/14/2021 Other pulmonary embolism wit hout acute cor pulmonale 05/22/2018 05/19/2021 Acute blood loss anemia 05/22/201805/02 DVT (deep venous thrombosis) 05/02/2018 05/19/2021 Overview: right distal, provoked. continue coumadin 3 months Acute asthma exacerbation 11/26/2017 Hyponatremia 11/21/2017 11/26/2017 Weakness 11/21/2017 11/26/2017 RUPERT (acute kidney injury) 11/21/2017 Acute rhinosinusitis 11/21/2017 018 Obesity, Class III, BMI >= 40 11/21/2017 05/19/2021 Sepsis due to urinary tract infection 11/20/2017 11/26/2017 Obesity (BMI 35.0-39.9 without comorbidity) 12/24/2016 12/29/2016 Morbid obesity with BMI of 40.0-44.9, adult 11/10/2016 12/24/2016 Morbid obesity due to excess calories 09/14/2015 11/10/2016 Acute back pain with sciatica 06/05/2015 05/19/2021 Swelling, mass, or lump in chest 06/06/2007 02/20/2010 OVERWEIGHT 11/10/2016 documented as of this encounter (statuses as of 03/04/2023) [facility]12-12-2021 History of Past illness Narrative* Problem Noted Date Diagnosed Date Resolved Date Hyponatremia 04/12/2021 04/14/2021 RUPERT (acute kidney injury) 04/12/2021 COVID-19 04/12/2021 04/14/2021 Malnutrition of mild degree 04/10/2021 04/14/2021 Other pulmonary embolism wit hout acute cor pulmonale 05/22/2018 05/19/2021 Acute blood loss anemia 05/22/201805/02 DVT (deep venous thrombosis) 05/02/2018 05/19/2021 Overview: right distal, provoked. continue coumadin 3 months Acute asthma exacerbation 11/26/2017 Hyponatremia 11/21/2017 11/26/2017 Weakness 11/21/2017 11/26/2017 RUPERT (acute kidney injury) 11/21/2017 Acute rhinosinusitis 11/21/2017 018 Obesity, Class III, BMI >= 40 11/21/2017 05/19/2021 Sepsis due to urinary tract infection (HCC) 11/20/2017 11/26/2017 Obesity (BMI 35.0-39.9 without comorbidity) 12/24/2016 12/29/2016 Morbid obesity with BMI of 40.0-44.9, adult 11/10/2016 12/24/2016 Morbid obesity due to excess calories 09/14/2015 11/10/2016 Acute back pain with sciatica 06/05/2015 05/19/2021 Swelling, mass, or lump in chest 06/06/2007 02/20/2010 OVERWEIGHT 11/10/2016 documented as of this encounter (statuses as of 03/08/2023) [facility]12-12-2021 History of Past illness Narrative* Problem Noted Date Diagnosed Date Resolved Date Hyponatremia 04/12/2021 04/14/2021 RUPERT (acute kidney injury) 04/12/2021 COVID-19 04/12/2021 04/14/2021 Malnutrition of mild degree 04/10/2021 04/14/2021 Other pulmonary embolism wit hout acute cor pulmonale 05/22/2018 05/19/2021 Acute blood loss anemia 05/22/201805/02 DVT (deep venous thrombosis) 05/02/2018 05/19/2021 Overview: right distal, provoked. continue coumadin 3 months Acute asthma exacerbation 11/26/2017 Hyponatremia 11/21/2017 11/26/2017 Weakness 11/21/2017 11/26/2017 RUPERT (acute kidney injury) 11/21/2017 Acute rhinosinusitis 11/21/2017 018 Obesity, Class III, BMI >= 40 11/21/2017 05/19/2021 Sepsis due to urinary tract infection (HCC) 11/20/2017 11/26/2017 Obesity (BMI 35.0-39.9 without comorbidity) 12/24/2016 12/29/2016 Morbid obesity with BMI of 40.0-44.9, adult 11/10/2016 12/24/2016 Morbid obesity due to excess calories 09/14/2015 11/10/2016 Acute back pain with sciatica 06/05/2015 05/19/2021 Swelling, mass, or lump in chest 06/06/2007 02/20/2010 OVERWEIGHT 11/10/2016 documented as of this encounter (statuses as of 03/23/2023) [facility]12-12-2021 History of Past illness Narrative* Problem Noted Date Diagnosed Date Resolved Date Hyponatremia 04/12/2021 04/14/2021 RUPERT (acute kidney injury) 04/12/2021 COVID-19 04/12/2021 04/14/2021 Malnutrition of mild degree 04/10/2021 04/14/2021 Other pulmonary embolism wit hout acute cor pulmonale 05/22/2018 05/19/2021 Acute blood loss anemia 05/22/201805/02 DVT (deep venous thrombosis) 05/02/2018 05/19/2021 Overview: right distal, provoked. continue coumadin 3 months Acute asthma exacerbation 11/26/2017 Hyponatremia 11/21/2017 11/26/2017 Weakness 11/21/2017 11/26/2017 RUPERT (acute kidney injury) 11/21/2017 Acute rhinosinusitis 11/21/2017 018 Obesity, Class III, BMI >= 40 11/21/2017 05/19/2021 Sepsis due to urinary tract infection (HCC) 11/20/2017 11/26/2017 Obesity (BMI 35.0-39.9 without comorbidity) 12/24/2016 12/29/2016 Morbid obesity with BMI of 40.0-44.9, adult 11/10/2016 12/24/2016 Morbid obesity due to excess calories 09/14/2015 11/10/2016 Acute back pain with sciatica 06/05/2015 05/19/2021 Swelling, mass, or lump in chest 06/06/2007 02/20/2010 OVERWEIGHT 11/10/2016 documented as of this encounter (statuses as of 03/23/2023) [facility]12-12-2021 History of Past illness Narrative* Problem Noted Date Diagnosed Date Resolved Date Hyponatremia 04/12/2021 04/14/2021 RUPERT (acute kidney injury) 04/12/2021 COVID-19 04/12/2021 04/14/2021 Malnutrition of mild degree 04/10/2021 04/14/2021 Other pulmonary embolism wit hout acute cor pulmonale 05/22/2018 05/19/2021 Acute blood loss anemia 05/22/201805/02 DVT (deep venous thrombosis) 05/02/2018 05/19/2021 Overview: right distal, provoked. continue coumadin 3 months Acute asthma exacerbation 11/26/2017 Hyponatremia 11/21/2017 11/26/2017 Weakness 11/21/2017 11/26/2017 RUPERT (acute kidney injury) 11/21/2017 Acute rhinosinusitis 11/21/2017 018 Obesity, Class III, BMI >= 40 11/21/2017 05/19/2021 Sepsis due to urinary tract infection (HCC) 11/20/2017 11/26/2017 Obesity (BMI 35.0-39.9 without comorbidity) 12/24/2016 12/29/2016 Morbid obesity with BMI of 40.0-44.9, adult 11/10/2016 12/24/2016 Morbid obesity due to excess calories 09/14/2015 11/10/2016 Acute back pain with sciatica 06/05/2015 05/19/2021 Swelling, mass, or lump in chest 06/06/2007 02/20/2010 OVERWEIGHT 11/10/2016 documented as of this encounter (statuses as of 04/01/2023) [facility]12-12-2021 History of Past illness Narrative* Problem Noted Date Diagnosed Date Resolved Date Hyponatremia 04/12/2021 04/14/2021 RUPERT (acute kidney injury) 04/12/2021 COVID-19 04/12/2021 04/14/2021 Malnutrition of mild degree 04/10/2021 04/14/2021 Other pulmonary embolism wit hout acute cor pulmonale 05/22/2018 05/19/2021 Acute blood loss anemia 05/22/201805/02 DVT (deep venous thrombosis) 05/02/2018 05/19/2021 Overview: right distal, provoked. continue coumadin 3 months Acute asthma exacerbation 11/26/2017 Hyponatremia 11/21/2017 11/26/2017 Weakness 11/21/2017 11/26/2017 RUPERT (acute kidney injury) 11/21/2017 Acute rhinosinusitis 11/21/2017 018 Obesity, Class III, BMI >= 40 11/21/2017 05/19/2021 Sepsis due to urinary tract infection (HCC) 11/20/2017 11/26/2017 Obesity (BMI 35.0-39.9 without comorbidity) 12/24/2016 12/29/2016 Morbid obesity with BMI of 40.0-44.9, adult 11/10/2016 12/24/2016 Morbid obesity due to excess calories 09/14/2015 11/10/2016 Acute back pain with sciatica 06/05/2015 05/19/2021 Swelling, mass, or lump in chest 06/06/2007 02/20/2010 OVERWEIGHT 11/10/2016 documented as of this encounter (statuses as of 04/07/2023) [facility]12-12-2021 History of Past illness Narrative* Problem Noted Date Diagnosed Date Resolved Date Hyponatremia 04/12/2021 04/14/2021 RUPERT (acute kidney injury) 04/12/2021 COVID-19 04/12/2021 04/14/2021 Malnutrition of mild degree 04/10/2021 04/14/2021 Other pulmonary embolism wit hout acute cor pulmonale 05/22/2018 05/19/2021 Acute blood loss anemia 05/22/201805/02 DVT (deep venous thrombosis) 05/02/2018 05/19/2021 Overview: right distal, provoked. continue coumadin 3 months Acute asthma exacerbation 11/26/2017 Hyponatremia 11/21/2017 11/26/2017 Weakness 11/21/2017 11/26/2017 RUPERT (acute kidney injury) 11/21/2017 Acute rhinosinusitis 11/21/2017 018 Obesity, Class III, BMI >= 40 11/21/2017 05/19/2021 Sepsis due to urinary tract infection (HCC) 11/20/2017 11/26/2017 Obesity (BMI 35.0-39.9 without comorbidity) 12/24/2016 12/29/2016 Morbid obesity with BMI of 40.0-44.9, adult 11/10/2016 12/24/2016 Morbid obesity due to excess calories 09/14/2015 11/10/2016 Acute back pain with sciatica 06/05/2015 05/19/2021 Swelling, mass, or lump in chest 06/06/2007 02/20/2010 OVERWEIGHT 11/10/2016 documented as of this encounter (statuses as of 04/11/2023) [facility]11-30-2021 Miscellaneous Notes* Telephone Encounter - Nely Nixon LPN - 03/31/2021 10:28 AM EST Pt has appt for VV on 04/02 at 2:20pm. She may need assistance with setting up the VV. Nely Nixon LPN * Telephone Encounter - Suze Wiseman MD - 03/30/2021 4:31 PM EST Reviewed. Please schedule VV later this week with me to follow up after ER visit. * Telephone Encounter - Joana Elise LPN - 03/30/2021 4:03 PM EST Pt. states she is doing better still has a cough. She is doing her breathing tx's O2 is staying above 93. No fever. She canceled Appt with Pulmonology because she felt she was doing better. Joana Elise LPN * Telephone Encounter - Suze Wiseman MD - 03/30/2021 3:28 PM EST Patient evaluated at [facility] ED on 03/28 for dyspnea related to COVID. Started on steroids and albuterol nebulizer and advised her to follow up with pulmonology today if not improving. Please call patient to see how she is feeling today and if she did follow up with specialist. [facility] Diagnosis Dyspnea on exertion Other dyspnea and respiratory abnormality [facility] Diagnosis Age-related physical debility- Primary Senility without mention of psychosis [facility] Diagnosis Dyspnea on exertion- Primary Other dyspnea and respiratory abnormality Syncope and collapse SSS (sick sinus syndrome) (HCC) Sinoatrial node dysfunction Essential hypertension Unspecified essential hypertension Cardiac pacemaker Cardiac pacemaker in situ Cardiac pacemaker in situ SVT (supraventricular tachycardia) ([facility]) Other specified cardiac dysrhythmias Mixed hyperlipidemia PSVT (paroxysmal supraventricular tachycardia) (HCC) Paroxysmal supraventricular tachycardia Other hyperlipidemia Essential hypertension, benign [facility] Diagnosis EVANS (dyspnea on exertion)- Primary Other dyspnea and respiratory abnormality History of COVID-19 SSS (sick sinus syndrome) ([facility]) Sinoatrial node dysfunction Cardiac pacemaker Cardiac pacemaker in situ Essential hypertension Unspecified essential hypertension MONTRELL (obstructive sleep apnea) Obstructive sleep apnea (adult) (pediatric) GERD without esophagitis Esophageal reflux Bilateral lower extremity edema Edema [facility] Diagnosis Breast pain- Primary Mastodynia Candidal intertrigo Candidiasis of skin and nails [facility] Diagnosis Vitamin D deficiency- Primary Unspecified vitamin D deficiency [facility] Diagnosis Essential hypertension- Primary Unspecified essential hypertension Mixed hyperlipidemia History of anemia Personal history of diseases of blood and blood-forming organs [facility] Diagnosis Viral URI with cough- Primary Acute upper respiratory infections of unspecified site Bacterial sinusitis Unspecified sinusitis (chronic) MONTRELL (obstructive sleep apnea) Obstructive sleep apnea (adult) (pediatric) Essential hypertension Unspecified essential hypertension GERD without esophagitis Esophageal reflux documented in this encounter [facility] [facility] Essential hypertension- Primary Unspecified essential hypertension MONTRELL (obstructive sleep apnea) Obstructive sleep apnea (adult) (pediatric) Overactive bladder Hypertonicity of bladder Presence of IVC filter Other postprocedural status Cardiac pacemaker Cardiac pacemaker in situ Dyspnea on exertion Other dyspnea and respiratory abnormality Morbid obesity with BMI of 40.0-44.9, adult (HCC) Morbid obesity Bilateral carotid artery stenosis Occlusion and stenosis of carotid artery without mention of cerebral infarction Mild intermittent asthma without complication Unspecified asthma Gastroesophageal reflux disease, unspecified whether esophagitis present Falls frequently Personal history of fall Vitamin D deficiency Unspecified vitamin D deficiency Advance directive discussed with patient Other specified counseling DNR (do not resuscitate) discussion Other specified counseling Pulmonary hypertension (HCC) Other chronic pulmonary heart diseases SVT (supraventricular tachycardia) (HCC) Other specified cardiac dysrhythmias [facility] Diagnosis SSS (sick sinus syndrome) (HCC)- Primary Sinoatrial node dysfunction [facility] Diagnosis Essential hypertension Unspecified essential hypertension [facility] Diagnosis Breast pain Mastodynia [facility] Diagnosis Acute bilateral low back pain without sciatica- Primary Acute hip pain, right Fall in home, initial encounter At high risk for falls Personal history of fall [facility] Diagnosis SSS (sick sinus syndrome) (HCC)- Primary Sinoatrial node dysfunction Pulmonary hypertension (HCC) Other chronic pulmonary heart diseases Dyspnea on exertion Other dyspnea and respiratory abnormality Syncope and collapse Essential hypertension Unspecified essential hypertension Cardiac pacemaker Cardiac pacemaker in situ SVT (supraventricular tachycardia) Other specified cardiac dysrhythmias Mixed hyperlipidemia Dizziness Dizziness and giddiness PSVT (paroxysmal supraventricular tachycardia) Paroxysmal supraventricular tachycardia documented in this encounter [facility] Plan of care note* Visit Details Visit Type -PT AGENCY DC W V ISIT Discipline -Physical Therapy Problems Problem Description Start Date Status Goals Interve ntions Medication Education Disciplines: Skilled Services 05/10/2021 Resolved on 06/15/2021 1 goal linked to scheduled/document ed intervention 1 goal intervention scheduled/document ed in this visit Physician Specific Parameters Disciplines: Skilled Services 05/10/2021 Resolved on 06/15/2021 1 goal linked to scheduled/document ed intervention 1 goal intervention scheduled/document ed in this visit Discharge Disciplines: Skilled Services 05/10/2021 Resolved on 06/15/2021 1 goal linked to scheduled/document ed intervention 1 goal intervention scheduled/document ed in this visit PT Impaired Aerobic Capacity Disciplines: PT 05/11/2021 Resolved on 06/15/2021 1 goal linked to scheduled/document ed intervention PT Impaired muscle performance and/or ROM Disciplines: PT 05/11/2021 Resolved on 06/15/2021 1 goal linked to scheduled/document ed intervention PT Impaired mobility Disciplines: PT 05/11/2021 Resolved on 06/15/2021 2 goals linked to scheduled/document ed interventions 1 goal intervention scheduled/document ed in this visit PT Impaired gait Disciplines: PT 05/11/2021 Resolved on 06/15/2021 2 goals linked to scheduled/document ed interventions 1 goal intervention scheduled/document ed in this visit PT Impaired balance Disciplines: PT 05/11/2021 Resolved on 06/15/2021 1 goal linked to scheduled/document ed intervention 1 goal intervention scheduled/document ed in this visit PT Learning Assessment Disciplines: PT 05/11/2021 Resolved on 06/15/2021 1 goal linked to scheduled/document ed intervention 1 goal intervention scheduled/document ed in this visit PT Pulmonary Disease Disciplines: PT 05/11/2021 Resolved on 06/15/2021 1 goal linked to scheduled/document ed intervention Goals Goal Associated Problem Outcome Goal Met? Visit Notes Patient/caregiver will demonstrate ability to obtain, store, identify and administer ordered medications, keep accurate medication list in home, and adhere to medication schedule Medication Education Completed Yes Goal Met Patient to maintain parameters within physician-specified ranges Physician Specific Parameters Completed Yes Goal Met Manage discharge planning Description: Patient/caregiver will verbalize understanding of ongoing discharge plan provided related to disease management, arrangements for outpatient and/or community services, obtaining medications, supplies, and DME, as needed. Discharge Completed Yes Goal Met Improved Aerobic Capacity Description: STG: Patient will demonstrate improved aerobic capacity to meet functional goals as evidenced by 2 Minute Step test score of 70 or greater, to be achieved by 06/20/21. PT Impaired Aerobic Capacity Completed Yes 2 minute step test score of 65 obtained. Improved Muscle Performance and/or ROM Description: Short term goal: Patient will demonstrate improved muscle performance to meet functional goals as evidenced by tolerating 8 minutes of continuous standing activity, to be achieved by 06/20/21. PT Impaired muscle performance and/or ROM Completed Yes Goal Met Improved Transfers Description: Short term goal: Patient will demonstrate safe transfers to/from bed, chair and toilet independently, to be achieved by 06/13/21. PT Impaired mobility Completed Yes Goal Met Improved Bed Mobility Description: STG: Patient will demonstrate improved bed mobility, ability to position self and supine <> sit independently to be achieved by 05/30/21. PT Impaired mobility Completed Yes Goal Met Improved Stair Climbing Description: LTG: Patient will demonstrate improved stair negotiation as evidenced by ascend/descend 4 steps without railing independently, to safely access community, to be achieved by 06/20/21. PT Impaired gait Completed Yes Requires SBA to ascend/descend 4 stairs. Improved Gait Description: LTG: Patient will demonstrate improved gait ability as evidenced by ambulation 300 feet with front wheeled walker independently with AD, to return to safe household and community ambulation, to be achieved by 06/20/21. PT Impaired gait Completed Yes Ambulated 200ft with FWW Independently with AD. Improved Balance Description: STG: Patient will demonstrate improved standing balance to meet functional goals as evidenced by TUG score of 16 seconds or less, to be achieved by 06/20/21. PT Impaired balance Completed Yes TUG performed in 18 seconds. Demonstrate understanding of education Description: Patient and/or caregiver will understand educational instruction to be achieved by 06/20/21. PT Learning Assessment Completed Yes Goal Met Manage Primary Pulmonary Disease Description: Improve patient and/or caregiver understanding of primary pulmonary disease as evidenced by patient and/or caregiver able to verbalize, demonstrate, and teach back instruction, to be achieved by 06/20/21. PT Pulmonary Disease Completed Yes Goal Met Interventions Intervention Associated Problem/Goal Status Variance Visit Notes Medication Education Description: Evaluate/instruct patient/caregiver on obtaining, storing, identifying and administering ordered medications as well as keeping accurate medication list in the home and adhereing to medication schedule Problem:Medication Education Goal:Patient/caregive r will demonstrate ability to obtain, store, identify and administer ordered medications, keep accurate medication list in home, and adhere to medication schedule Completed Patient instructed on importance of keeping accurate medication list in home, adhering to medication schedule and proper storage of medications. SPO2 Description: Notify PCP if pulse ox is <92% at rest. Problem:Physician Specific Parameters Goal:Patient to maintain parameters within physician-specified ranges Completed Instruct on final discharge plan and deliver discharge instructions Problem:Discharge Goal:Manage discharge planning Completed Delivered Discharge plan: Discharge plan discussed with patient for plan for transition to: caregiver assistance Physical Therapy Transfer Training Problem:PT Impaired mobility Goal:Improved Transfers Completed Transfer training and instruction to patient and/or caregiver on safe transfers to and from bed and chair, including sequencing BL UEs and LEs and to promote anterior weight shifting. Learning Assessment Patient verbalizes understanding and demonstrates understanding of instructions. Teaching methods used were verbal and demonstration. Physical Therapy Gait Training Problem:PT Impaired gait Goal:Improved Gait Completed Patient ambulated 200ft with FWW with Independently with AD over a variety of floor surfaces with no LOB. Physical Therapy Balance Training Problem:PT Impaired balance Goal:Improved Balance Completed Developed, implemented, and instructed patient and/or caregiver on standing balance exercises, including static/dynamic activities with and without UE support and weight shifting with SLS activities. Learning Assessment Patient verbalizes and demonstrates understanding of instructions. Teaching methods used were verbal and demonstration. Instruct and educate on knowledge deficits Problem:PT Learning Assessment Goal:Demonstrate understanding of education Completed patient verbalize and/or demonstrate understanding of physical therapy education including home exercise program and pulmonary disease management. Education methods include: verbal cues. documented in this encounter [facility] for referral (narrative)* Diagnostic Procedure Only (Routine) - Closed Specialty Diagnoses / Procedures Referred By Contact Referred To Contact [facility] Diagnoses Dyspnea on exertion Procedures NM CARDIAC PERF STRESS/PHARM MYOCARDIAL SPECT MULTIPLE STUDIES Stephani Bennett APRN.CNP [address] [place] [address] [facility] [address] [place] [address] Referral ID Status Reason Start Date Expiration Date V isits Requested Visits Authorized [id number] Closed Auto-Generate d Referral 07/16/2021 08/15/2022 1 1 [facility] for referral (narrative)* Diagnostic Procedure Only (Routine) - Authorized Specialty Diagnoses / Procedures Referred By Marinac t Referred To Contact BR IM[facility] Diagnoses Breast pain Procedures US BREAST LTD LT US BREAST UNI REAL TIME WITH IMAGE LIMITED Suze Wiseman MD [address] [place] [address] [facility] [address] [place] [address] Referral ID Status Reason Start Date Expiration Date Visits Requested Visits Authorized [id number] Authorized Auto-Generat ed Referral 2 03/20/2023 1 1 * Diagnostic Procedure Only (Routine) - Authorized Specialty Diagnoses / Procedures Referred By Rogelio t Referred To Contact [facility] Diagnoses Breast pain Procedures US BREAST LTD RT US BREAST UNI REAL TIME WITH IMAGE LIMITED Suze Wiseman MD [address] [place] [address] [facility] [address] [address] Referral ID Status Reason Start Date Expiration Date Visits Requested Visits Authorized [id number] Authorized Auto-Generat ed Referral 2 03/20/2023 1 1 * Diagnostic Procedure Only (Routine) - Authorized Specialty Diagnoses / Procedures Referred By Marinac t Referred To Contact [facility] Diagnoses Breast pain Procedures DELIO DIAGNOSTIC BILAT DIAGNOSTIC MAMMOGRAPHY COMPUTER-AIDED DETCJ BI Suze Wiseman MD [address] [place] [address] [facility] [address] [place] [address] Referral ID Status Reason Start Date Expiration Date Visits Requested Visits Authorized [id number] Authorized Auto-Generat ed Referral 2 03/20/2023 1 1 [facility] for referral (narrative)* Outpatient Procedure (Routine) - Authorized Specialty Diagnoses / Procedures Referred By Contac t Referred To Contact [facility] Diagnoses Bilateral carotid artery stenosis Procedures US CAROTID ARTERIES JACQUES VAS LAB DUPLEX SCAN EXTRACRANIAL ART COMPL BI STUDY Suze Wiseman MD [address] [place] [address] [facility] [place] [address] [place] [address] Referral ID Status Reason Start Date Expiration Date Visits Requested Visits Authorized [id number] Authorized Auto-Generat ed Referral 10/29/2022 10/29/2023 1 1 [facility] for referral (narrative)* Diagnostic Procedure Only (Routine) - Closed Specialty Diagnoses / Procedures Referred By Contjose elias t Referred To Contact [facility] Diagnoses Breast pain Procedures DELIO DIAGNOSTIC BILAT DIAGNOSTIC MAMMOGRAPHY COMPUTER-AIDED DETCJ BI Suze Wiseman MD [address] [place] [address] [facility] [address] [place] [id number] Referral ID Status Reason Start Date Expiration Date V isits Requested Visits Authorized [id number] Closed Auto-Generate d Referral 02/18/2022 03/20/2023 1 1 [facility] for visit Narrative* Diagnostic Procedure Only (Routine) - Closed Specialty Diagnoses / Procedures Referred By Contact Referred To Contact [facility] Diagnoses Dyspnea on exertion Procedures NM CARDIAC PERF STRESS/PHARM MYOCARDIAL SPECT MULTIPLE STUDIES Stephani Bennett, OFFICE [employer] [address] [place] [address] [facility] [address] [place] [address] Referral ID Status Reason Start Date Expiration Date V isits Requested Visits Authorized [id number] Closed Auto-Generate d Referral 07/16/2021 08/15/2022 1 1 [facility] for visit Narrative* Diagnostic Procedure Only (Routine) - Closed Specialty Diagnoses / Procedures Referred By Contac t Referred To Contact [facility] Diagnoses Breast pain Procedures DELIO DIAGNOSTIC BILAT DIAGNOSTIC MAMMOGRAPHY COMPUTER-AIDED DETCJ Suze Prescott MD [address] [place] [address] [facility] [address] [place] [address] Referral ID Status Reason Start Date Expiration Date V isits Requested Visits Authorized [id number] Closed Auto-Generate d Referral 02/18/2022 03/20/2023 1 1 [facility] Summary Purpose Family History No Family History Records FoundNo Family History Records FoundNo Family History Records FoundNo Family History Records FoundNo Family History Records Found Advance Directives No Advanced Directives Records FoundDocuments on File Type Date Recorded 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 Advance Directive(s) 04/14/2021 2:54 PM Advance Directive(s) 04/12/2021 10:20 AM Advance Directive(s) 04/11/2021 11:12 AM Advance Directive(s) 04/10/2021 12:57 PM Advance Directive(s) 04/09/2021 4:37 PM Advance Directive(s) 03/25/2021 3:01 PM Advance Directive(s) 03/02/2018 7:46 AM Advance Directive(s) 11/20/2017 7:40 PM Advance Directive(s) 09/18/2015 7:44 AM Advance Directive(s) 08/29/2015 1:03 PM Latest Code Status on File Code Status Date Activated Date Inactivated Comments Full Code 05/11/2021 9:43 AM Documents on File Type Date 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 Advance Directive(s) 04/14/2021 2:54 PM Advance Directive(s) 04/12/2021 10:20 AM Advance Directive(s) 04/11/2021 11:12 AM Advance Directive(s) 04/10/2021 12:57 PM Advance Directive(s) 04/09/2021 4:37 PM Advance Directive(s) 03/25/2021 3:01 PM Advance Directive(s) 03/02/2018 7:46 AM Advance Directive(s) 11/20/2017 7:40 PM Advance Directive(s) 09/18/2015 7:44 AM Advance Directive(s) 08/29/2015 1:03 PM Latest Code Status on File Code Status Date Activated Date Inactivated Comments Full Code 05/11/2021 9:43 AM Documents on File Type Date 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 Advance Directive(s) 09/06/2021 9:16 AM Advance Directive(s) 04/14/2021 2:54 PM Advance Directive(s) 04/12/2021 10:20 AM Advance Directive(s) 04/11/2021 11:12 AM Advance Directive(s) 04/10/2021 12:57 PM Advance Directive(s) 04/09/2021 4:37 PM Advance Directive(s) 03/25/2021 3:01 PM Advance Directive(s) 03/02/2018 7:46 AM Advance Directive(s) 11/20/2017 7:40 PM Advance Directive(s) 09/18/2015 7:44 AM Advance Directive(s) 08/29/2015 1:03 PM Latest Code Status on File Code Status Date Activated Date Inactivated Comments Full Code 05/11/2021 9:43 AM 09/06/2021 8:46 AM Latest Code Status on File Code Status Date Activated Date Inactivated Comments Full Code 05/11/2021 9:43 AM 09/06/2021 8:46 AM Latest Code Status on File Code Status Date Activated Date Inactivated Comments Full Code 05/11/2021 9:43 AM 09/06/2021 8:46 AM Latest Code Status on File Code Status Date Activated Date Inactivated Comments Full Code 05/11/2021 9:43 AM 09/06/2021 8:46 AM Reason for Referral Specialty Diagnoses / Procedures Referred By Contac t Referred To Contact [facility] Diagnoses Age-related physical debility Procedures CONSULT TO PHYSICAL THERAPY PHYSICAL THERAPY EVALUATION HIGH COMPLEX 45 MINS Suze Wiseman MD [address] [place] [address] [facility] [address] [address] Referral ID Status Reason Start Date Expiration Date Visits Requested Visits Authorized [id number] Authorized PCP Requested Referral Auto-Generate d Referral 08/20/2021 08/20/2022 99 99 Specialty Diagnoses / Procedures Referred By Contac t Referred To Contact [facility] Diagnoses Acute bilateral low back pain without sciatica Acute hip pain, right Fall in home, initial encounter At high risk for falls Procedures CONSULT TO PHYSICAL THERAPY PHYSICAL THERAPY EVALUATION HIGH COMPLEX 45 MINS Suze Wiseman MD [address] [place] [address] [facility] [place] [address] [place] [address] Referral ID Status Reason Start Date Expiration Date Visits Requested Visits Authorized [id number] Authorized PCP Requested Referral Auto-Generate d Referral 03/21/2024 99 99 Specialty Diagnoses / Procedures Referred By Contac t Referred To Contact Suze Wiseman MD [address] [place] [address] Referral ID Status Reason Start Date Expiration Date V isits Requested Visits Authorized [id number] Authorized 02/20/2023 03/21/2024 1 1 Specialty Diagnoses / Procedures Referred By Contac t Referred To Contact XR IMAGING Diagnoses Acute hip pain, right Procedures XR HIP GENERAL 3V PELV/AP/LAT RIGHT RADEX HIP UNILATERAL WITH PELVIS 2-3 VIEWS Suze Wiseman MD [facility] [place] [address] [place] [address] Referral ID Status Reason Start Date Expiration Date V isits Requested Visits Authorized [id number] Closed Auto-Generate d Referral 03/22/2023 04/20/2024 1 1 Specialty Diagnoses / Procedures Referred By Contac t Referred To Contact XR IMAGING Diagnoses Acute bilateral low back pain without sciatica Procedures XR LUMBAR GENERAL 3V AP/LAT/L5-S1 RADEX SPINE LUMBOSACRAL 2/3 VIEWS Suze Wiseman MD [address] [place] [address] [place] [address] Referral ID Status Reason Start Date Expiration Date V isits Requested Visits Authorized [id number] Closed Auto-Generate d Referral 03/22/2023 04/20/2024 1 1 Health Concerns Infection Onset Date Last Indicated Resolved Time COVID-19 Confirmed 03/23/2021 04/11/2021 8:51 PM EST COVID-19 Rule-Out 04/11/2021 04/11/2021 04/11/2021 3:29 PM EST Additional Source Comments INFORMATION SOURCE (unrecogn ized section and content) DATE CREATED AUTHOR AUTHOR'S ORGANIZ ATION 02/03/2019 [facility] DATE CREATED AUTHOR AUTHOR'S ORGANIZ ATION 08/05/2021 [facility] DATE CREATED AUTHOR AUTHOR'S ORGANIZ ATION 04/30/2022 [facility] DATE CREATED AUTHOR AUTHOR'S ORGANIZ ATION 06/03/2023 [facility] Source Comments (unrecognize d section and content) In the event this informatio n is protected by the Federal Confidentiality of Alcohol and Drug Abuse Patient Records regulations: The Federal rules restrict any use of the information to criminally investigate or prosecute any alcohol or drug abuse patient.[facility] event this information is protected by the Federal Confidentiality of Alcohol and Drug Abuse Patient Records regulations: The Federal rules restrict any use of the information to criminally investigate or prosecute any alcohol or drug abuse patient.[facility] event this information is protected by the Federal Confidentiality of Alcohol and Drug Abuse Patient Records regulations: The Federal rules restrict any use of the information to criminally investigate or prosecute any alcohol or drug abuse patient.[facility] event this information is protected by the Federal Confidentiality of Alcohol and Drug Abuse Patient Records regulations: The Federal rules restrict any use of the information to criminally investigate or prosecute any alcohol or drug abuse patient.[facility] event this information is protected by the Federal Confidentiality of Alcohol and Drug Abuse Patient Records regulations: The Federal rules restrict any use of the information to criminally investigate or prosecute any alcohol or drug abuse patient.[facility] the event this information is protected by the Federal Confidentiality of Alcohol and Drug Abuse Patient Records regulations: The Federal rules restrict any use of the information to criminally investigate or prosecute any alcohol or drug abuse patient.[facility] event this information is protected by the Federal Confidentiality of Alcohol and Drug Abuse Patient Records regulations: The Federal rules restrict any use of the information to criminally investigate or prosecute any alcohol or drug abuse patient.[facility] event this information is protected by the Federal Confidentiality of Alcohol and Drug Abuse Patient Records regulations: The Federal rules restrict any use of the information to criminally investigate or prosecute any alcohol or drug abuse patient.[facility] the event this information is protected by the Federal Confidentiality of Alcohol and Drug Abuse Patient Records regulations: The Federal rules restrict any use of the information to criminally investigate or prosecute any alcohol or drug abuse patient.[facility] event this information is protected by the Federal Confidentiality of Alcohol and Drug Abuse Patient Records regulations: The Federal rules restrict any use of the information to criminally investigate or prosecute any alcohol or drug abuse patient.[facility] event this information is protected by the Federal Confidentiality of Alcohol and Drug Abuse Patient Records regulations: The Federal rules restrict any use of the information to criminally investigate or prosecute any alcohol or drug abuse patient.[facility] the event this information is protected by the Federal Confidentiality of Alcohol and Drug Abuse Patient Records regulations: The Federal rules restrict any use of the information to criminally investigate or prosecute any alcohol or drug abuse patient.[facility] the event this information is protected by the Federal Confidentiality of Alcohol and Drug Abuse Patient Records regulations: The Federal rules restrict any use of the information to criminally investigate or prosecute any alcohol or drug abuse patient.[facility] the event this information is protected by the Federal Confidentiality of Alcohol and Drug Abuse Patient Records regulations: The Federal rules restrict any use of the information to criminally investigate or prosecute any alcohol or drug abuse patient.[facility] [facility] [place]In the event this information is protected by the Federal Confidentiality of Alcohol and Drug Abuse Patient Records regulations: The Federal rules restrict any use of the information to criminally investigate or prosecute any alcohol or drug abuse patient.[facility] [place]In the event this information is protected by the Federal Confidentiality of Alcohol and Drug Abuse Patient Records regulations: The Federal rules restrict any use of the information to criminally investigate or prosecute any alcohol or drug abuse patient.[facility] [place]In the event this information is protected by the Federal Confidentiality of Alcohol and Drug Abuse Patient Records regulations: The Federal rules restrict any use of the information to criminally investigate or prosecute any alcohol or drug abuse patient.[facility] [place]In the event this information is protected by the Federal Confidentiality of Alcohol and Drug Abuse Patient Records regulations: The Federal rules restrict any use of the information to criminally investigate or prosecute any alcohol or drug abuse patient.[facility] [place]In the event this information is protected by the Federal Confidentiality of Alcohol and Drug Abuse Patient Records regulations: The Federal rules restrict any use of the information to criminally investigate or prosecute any alcohol or drug abuse patient.[facility] [place]In the event this information is protected by the Federal Confidentiality of Alcohol and Drug Abuse Patient Records regulations: The Federal rules restrict any use of the information to criminally investigate or prosecute any alcohol or drug abuse patient.[facility] [place]In the event this information is protected by the Federal Confidentiality of Alcohol and Drug Abuse Patient Records regulations: The Federal rules restrict any use of the information to criminally investigate or prosecute any alcohol or drug abuse patient.[facility] [place]In the event this information is protected by the Federal Confidentiality of Alcohol and Drug Abuse Patient Records regulations: The Federal rules restrict any use of the information to criminally investigate or prosecute any alcohol or drug abuse patient.[facility] [place]In the event this information is protected by the Federal Confidentiality of Alcohol and Drug Abuse Patient Records regulations: The Federal rules restrict any use of the information to criminally investigate or prosecute any alcohol or drug abuse patient.[facility] [place]In the event this information is protected by the Federal Confidentiality of Alcohol and Drug Abuse Patient Records regulations: The Federal rules restrict any use of the information to criminally investigate or prosecute any alcohol or drug abuse patient.[facility] [place]In the event this information is protected by the Federal Confidentiality of Alcohol and Drug Abuse Patient Records regulations: The Federal rules restrict any use of the information to criminally investigate or prosecute any alcohol or drug abuse patient.[facility] [place]In the event this information is protected by the Federal Confidentiality of Alcohol and Drug Abuse Patient Records regulations: The Federal rules restrict any use of the information to criminally investigate or prosecute any alcohol or drug abuse patient.[facility] [place]In the event this information is protected by the Federal Confidentiality of Alcohol and Drug Abuse Patient Records regulations: The Federal rules restrict any use of the information to criminally investigate or prosecute any alcohol or drug abuse patient.[facility] [place]In the event this information is protected by the Federal Confidentiality of Alcohol and Drug Abuse Patient Records regulations: The Federal rules restrict any use of the information to criminally investigate or prosecute any alcohol or drug abuse patient.[facility] [place]In the event this information is protected by the Federal Confidentiality of Alcohol and Drug Abuse Patient Records regulations: The Federal rules restrict any use of the information to criminally investigate or prosecute any alcohol or drug abuse patient.[facility] [place]In the event this information is protected by the Federal Confidentiality of Alcohol and Drug Abuse Patient Records regulations: The Federal rules restrict any use of the information to criminally investigate or prosecute any alcohol or drug abuse patient.[facility] [place]In the event this information is protected by the Federal Confidentiality of Alcohol and Drug Abuse Patient Records regulations: The Federal rules restrict any use of the information to criminally investigate or prosecute any alcohol or drug abuse patient.[facility] [place]In the event this information is protected by the Federal Confidentiality of Alcohol and Drug Abuse Patient Records regulations: The Federal rules restrict any use of the information to criminally investigate or prosecute any alcohol or drug abuse patient.[facility] [place]In the event this information is protected by the Federal Confidentiality of Alcohol and Drug Abuse Patient Records regulations: The Federal rules restrict any use of the information to criminally investigate or prosecute any alcohol or drug abuse patient.[facility] [place]In the event this information is protected by the Federal Confidentiality of Alcohol and Drug Abuse Patient Records regulations: The Federal rules restrict any use of the information to criminally investigate or prosecute any alcohol or drug abuse patient.[facility] [place]In the event this information is protected by the Federal Confidentiality of Alcohol and Drug Abuse Patient Records regulations: The Federal rules restrict any use of the information to criminally investigate or prosecute any alcohol or drug abuse patient.[facility] [place]In the event this information is protected by the Federal Confidentiality of Alcohol and Drug Abuse Patient Records regulations: The Federal rules restrict any use of the information to criminally investigate or prosecute any alcohol or drug abuse patient.[facility] [place]In the event this information is protected by the Federal Confidentiality of Alcohol and Drug Abuse Patient Records regulations: The Federal rules restrict any use of the information to criminally investigate or prosecute any alcohol or drug abuse patient.[facility] [place]In the event this information is protected by the Federal Confidentiality of Alcohol and Drug Abuse Patient Records regulations: The Federal rules restrict any use of the information to criminally investigate or prosecute any alcohol or drug abuse patient.[facility] [place]In the event this information is protected by the Federal Confidentiality of Alcohol and Drug Abuse Patient Records regulations: The Federal rules restrict any use of the information to criminally investigate or prosecute any alcohol or drug abuse patient.[facility] [place]In the event this information is protected by the Federal Confidentiality of Alcohol and Drug Abuse Patient Records regulations: The Federal rules restrict any use of the information to criminally investigate or prosecute any alcohol or drug abuse patient.[facility] [place]In the event this information is protected by the Federal Confidentiality of Alcohol and Drug Abuse Patient Records regulations: The Federal rules restrict any use of the information to criminally investigate or prosecute any alcohol or drug abuse patient.[facility] [place]In the event this information is protected by the Federal Confidentiality of Alcohol and Drug Abuse Patient Records regulations: The Federal rules restrict any use of the information to criminally investigate or prosecute any alcohol or drug abuse patient.[facility] [place]In the event this information is protected by the Federal Confidentiality of Alcohol and Drug Abuse Patient Records regulations: The Federal rules restrict any use of the information to criminally investigate or prosecute any alcohol or drug abuse patient.[facility] [place]In the event this information is protected by the Federal Confidentiality of Alcohol and Drug Abuse Patient Records regulations: The Federal rules restrict any use of the information to criminally investigate or prosecute any alcohol or drug abuse patient.[facility] [place]In the event this information is protected by the Federal Confidentiality of Alcohol and Drug Abuse Patient Records regulations: The Federal rules restrict any use of the information to criminally investigate or prosecute any alcohol or drug abuse patient.[facility] [place]In the event this information is protected by the Federal Confidentiality of Alcohol and Drug Abuse Patient Records regulations: The Federal rules restrict any use of the information to criminally investigate or prosecute any alcohol or drug abuse patient.[facility] [place]In the event this information is protected by the Federal Confidentiality of Alcohol and Drug Abuse Patient Records regulations: The Federal rules restrict any use of the information to criminally investigate or prosecute any alcohol or drug abuse patient.[facility] [place]In the event this information is protected by the Federal Confidentiality of Alcohol and Drug Abuse Patient Records regulations: The Federal rules restrict any use of the information to criminally investigate or prosecute any alcohol or drug abuse patient.[facility] [place]In the event this information is protected by the Federal Confidentiality of Alcohol and Drug Abuse Patient Records regulations: The Federal rules restrict any use of the information to criminally investigate or prosecute any alcohol or drug abuse patient.[facility] [place]In the event this information is protected by the Federal Confidentiality of Alcohol and Drug Abuse Patient Records regulations: The Federal rules restrict any use of the information to criminally investigate or prosecute any alcohol or drug abuse patient.[facility] [place]In the event this information is protected by the Federal Confidentiality of Alcohol and Drug Abuse Patient Records regulations: The Federal rules restrict any use of the information to criminally investigate or prosecute any alcohol or drug abuse patient.[facility] [place]In the event this information is protected by the Federal Confidentiality of Alcohol and Drug Abuse Patient Records regulations: The Federal rules restrict any use of the information to criminally investigate or prosecute any alcohol or drug abuse patient.[facility] [place] Care Teams (unrecognized sec tion and content) Transporter Radiology Relationship Specialty Start Date End Date Suze Wiseman MD [address] [place] [address] PCP - General Family Practice 12/20/16 Glen Polk DO Primary Staff Physician Cardiology 07/18/18 Transporter Radiology Relationship Specialty Start Date End Date Suze Wiseman MD [address] [place] [address] PCP - General Family Practice 12/20/16 Glen Polk, DO Primary Staff Physician Cardiology 07/18/18 Transporter Radiology Relationship Specialty Start Date End Date Suze Wiseman MD [address] [place] [address] PCP - General Family Practice 12/20/16 Glen Polk, DO Primary Staff Physician Cardiology 07/18/18 Transporter Radiology Relationship Specialty Start Date End Date Suze Wiseman MD [address] [place] [address] PCP - General Family Practice 12/20/16 Glen Polk, DO Primary Staff Physician Cardiology 07/18/18 Transporter Radiology Relationship Specialty Start Date End Date Suze Wiseman MD [address] [place] [address] PCP - General Family Practice 12/20/16 Glen Polk, DO Primary Staff Physician Cardiology 07/18/18 Transporter Radiology Relationship Specialty Start Date End Date Suze Wiseman MD [address] [place] [address] PCP - General Family Practice 12/20/16 Glen Polk, DO Primary Staff Physician Cardiology 07/18/18 Transporter Radiology Relationship Specialty Start Date End Date Suze Wiseman MD [address] [place] [address] PCP - General Family Practice 12/20/16 Glen Polk, DO Primary Staff Physician Cardiology 07/18/18 Transporter Radiology Relationship Specialty Start Date End Date Suze Wiseman MD [address] [place] [address] PCP - General Family Practice 12/20/16 Glen Polk, DO Primary Staff Physician Cardiology 07/18/18 Transporter Radiology Relationship Specialty Start Date End Date Suze Wiseman MD [address] [place] [address] PCP - General Family Practice 12/20/16 Glen Polk, DO Primary Staff Physician Cardiology 07/18/18 Transporter Radiology Relationship Specialty Start Date End Date Suze Wiseman MD [address] [place] [address] PCP - General Family Practice 12/20/16 Glen Polk, DO Primary Staff Physician Cardiology 07/18/18 Transporter Radiology Relationship Specialty Start Date End Date Suze Wiseman MD [address] [place] [address] PCP - General Family Practice 12/20/16 Glen Polk, DO Primary Staff Physician Cardiology 07/18/18 Brijesh Fisher, ADRIANA [address] [place] [address] Statistical Programmer Post Acute Care 05/08/21 06/09/21 Transporter Radiology Relationship Specialty Start Date End Date Suze Wiseman MD [address] [place] [address] PCP - General Family Practice 12/20/16 Glen Polk, DO Primary Staff Physician Cardiology 07/18/18 Transporter Radiology Relationship Specialty Start Date End Date Suze Wiseman MD [address] [place] [address] PCP - General Family Medicine 12/20/16 Glen Polk, DO Primary Staff Physician Cardiology 07/18/18 Transporter Radiology Relationship Specialty Start Date End Date Suze Wiseman MD [address] [place] [address] PCP - General Family Medicine 12/20/16 Glen Polk, DO Primary Staff Physician Cardiology 07/18/18 Transporter Radiology Relationship Specialty Start Date End Date Suze Wiseman MD [address] [place] [address] PCP - General Family Medicine 12/20/16 Glen Polk, DO [address] [place] [address] Primary Staff Physician Cardiology 07/18/18 Transporter Radiology Relationship Specialty Start Date End Date Suze Wiseman MD [address] [place] [address] PCP - General Family Medicine 12/20/16 Glen Polk, DO [address] [place] [address] Primary Staff Physician Cardiology 07/18/18 Daisy Franklin, marketing information managerPlatform Software Engineer 04/21/22 Transporter Radiology Relationship Specialty Start Date End Date Suze Wiseman MD [address] [place] [address] PCP - General Family Medicine 12/20/16 Glen Polk, DO [address] [place] [address] Primary Staff Physician Cardiology 07/18/18 Daisy Franklin, marketing information managerPlatform Software Engineer 04/21/22 Transporter Radiology Relationship Specialty Start Date End Date Suze Wiseman MD [address] [place] [address] PCP - General Family Medicine 12/20/16 Glen Polk, DO [address] [place] [address] Primary Staff Physician Cardiology 07/18/18 Daisy Franklin, marketing information managerPlatform Software Engineer 04/21/22 Transporter Radiology Relationship Specialty Start Date End Date Suze Wiseman MD [address] [place] [address] PCP - General Family Medicine 12/20/16 Glen Polk, DO [address] [place] [address] Primary Staff Physician Cardiology 07/18/18 Daisy Franklin, marketing information managerPlatform Software Engineer 04/21/22 Transporter Radiology Relationship Specialty Start Date End Date Suze Wiseman MD [address] [place], [place] 447[address] [phone] PCP - General Family Medicine 12/20/16 Glen Polk, DO [address] [place] [address] Primary Staff Physician Cardiology 07/18/18 Daisy Franklin, marketing information managerPlatform Software Engineer 04/21/22 Transporter Radiology Relationship Specialty Start Date End Date Suze Wiseman MD [address] [place] [address] PCP - General Family Medicine 12/20/16 Glen Polk, DO [address] [place] [address] Primary Staff Physician Cardiology 07/18/18 Daisy Franklin, marketing information managerPlatform Software Engineer 04/21/22 Transporter Radiology Relationship Specialty Start Date End Date Suze Wiseman MD [address] [place] [address] PCP - General Family Medicine 12/20/16 Glen Polk, DO [address] [place] [address] Primary Staff Physician Cardiology 07/18/18 Daisy Franklin, marketing information managerPlatform Software Engineer 04/21/22 Transporter Radiology Relationship Specialty Start Date End Date Suze Wiseman MD [address] [place] [address] PCP - General Family Medicine 12/20/16 Glen Polk, DO [address] [place] [address] Primary Staff Physician Cardiology 07/18/18 Daisy Franklin, marketing information managerPlatform Software Engineer 04/21/22 Transporter Radiology Relationship Specialty Start Date End Date Suze Wiseman MD [address] [place], [place] 536[address] [phone] PCP - General Family Medicine 12/20/16 Glen Polk, DO [address] [place] [address] Primary Staff Physician Cardiology 07/18/18 Daisy Franklin, marketing information managerPlatform Software Engineer 04/21/22 Transporter Radiology Relationship Specialty Start Date End Date Suze Wiseman MD [address] [place], [place] [address] PCP - General Family Medicine 12/20/16 Glen Polk DO [address] [place] [address] Primary Staff Physician Cardiology 07/18/18 Daisy Franklin, marketing information managerPlatform Software Engineer 04/21/22 Transporter Radiology Relationship Specialty Start Date End Date Suze Wiseman MD [address] [place], [place] [address] PCP - General Family Medicine 12/20/16 Glen Polk DO [address] [place] [address] Primary Staff Physician Cardiology 07/18/18 Daisy Franklin, marketing information managerPlatform Software Engineer 04/21/22 Transporter Radiology Relationship Specialty Start Date End Date Suze Wiseman MD [address] [place] [address] PCP - General Family Medicine 12/20/16 Glen Polk DO [address] [place] [address] Primary Staff Physician Cardiology 07/18/18 Daisy Franklin, marketing information managerPlatform Software Engineer 04/21/22 Transporter Radiology Relationship Specialty Start Date End Date Suze Wiseman MD [address] [place], [place] [address] PCP - General Family Medicine 12/20/16 Glen Polk DO [address] [place] [address] Primary Staff Physician Cardiology 07/18/18 Daisy Franklin, marketing information managerPlatform Software Engineer 04/21/22 Transporter Radiology Relationship Specialty Start Date End Date Suze Wiseman MD [address] [place] [address] PCP - General Family Medicine 12/20/16 Glen Polk DO [address] [place] [address] Primary Staff Physician Cardiology 07/18/18 Daisy Franklin, marketing information managerPlatform Software Engineer 04/21/22 Transporter Radiology Relationship Specialty Start Date End Date Suze Wiseman MD [address] [place] [address] PCP - General Family Medicine 12/20/16 Glen Polk DO [address] [place] [address] Primary Staff Physician Cardiology 07/18/18 Transporter Radiology Relationship Specialty Start Date End Date Suze Wiseman MD [address] [place] [address] PCP - General Family Medicine 12/20/16 Glen Polk DO [address] [place], [place] [address] Primary Staff Physician Cardiology 07/18/18 Daisy Franklin, marketing information managerPlatform Software Engineer 04/21/22 Transporter Radiology Relationship Specialty Start Date End Date Suze Wiseman MD [address] [place] [address] PCP - General Family Medicine 12/20/16 Glen Polk DO [address] [place], [place] [address] Primary Staff Physician Cardiology 07/18/18 Daisy Franklin, marketing information managerPlatform Software Engineer 04/21/22 Transporter Radiology Relationship Specialty Start Date End Date Suze Wiseman MD [address] [place], [place] [address] PCP - General Family Medicine 12/20/16 Glen Polk DO [address] [place], [place] [address] Primary Staff Physician Cardiology 07/18/18 Daisy Franklin, marketing information managerPlatform Software Engineer 04/21/22 Transporter Radiology Relationship Specialty Start Date End Date Suze Wiseman MD [address] [place], [place] [address] PCP - General Family Medicine 12/20/16 Glen Polk DO [address] [place], [place] [address] Primary Staff Physician Cardiology 07/18/18 Daisy Franklin, marketing information managerPlatform Software Engineer 04/21/22 Transporter Radiology Relationship Specialty Start Date End Date Suze Wiseman MD [address] [place], [place] [id number] PCP - General Family Medicine 12/20/16 Glen Polk DO [address] [place], [place] [address] Primary Staff Physician Cardiology 07/18/18 Daisy Franklin, marketing information managerPlatform Software Engineer 04/21/22 Reason for Visit (unrecogniz ed section and content) Reason Comments Reminder Call Reason Comments Results Reason Comments Returning Patient's Call Reason Comments Patient Question Reason Comments Cardiology Follow Up test result SOB Reason Comments CMN- PAP supplies [employer] Reason Comments F/U 3 Month Reason Comments Patient Update Reason Comments Discomfort on left side. Reason Comments Breast Problem Pain on and off in l eft breast x 2 weeks. Reports sometimes right as well. Reason Onset Date Comments cdm 04/21/2022 enrollment Reason Comments Orders Reason Comments Follow Up 6 month- patient rep orts lingering URI x 3 weeks Reason Onset Date Comments Community Monitoring Outreach 05/17/2022 CD M follow up Reason Onset Date Comments Community Monitoring Outreach 06/10/2022 CD M follow up Reason Onset Date Comments Community Monitoring Outreach 06/22/2022 CD M follow up Reason Onset Date Comments Community Monitoring Outreach 07/19/2022 CD M follow up Reason Onset Date Comments Community Monitoring Outreach 07/20/2022 CD M follow up Reason Onset Date Comments Communtiy Monitoring Outreach 07/30/2022 CD M follow up Reason Onset Date Comments Community Monitoring Outreach 08/23/2022 CD M follow up Reason Onset Date Comments Community Monitoring Outreach 08/24/2022 CD M follow up Reason Comments CMN- PAP supplies [employer] Reason Onset Date Comments Community Monitoring Outreach 10/14/2022 CD M follow up Reason Onset Date Comments Community Monitoring Outreach 10/27/2022 CD M follow up Reason Comments Follow Up 6 month Reason Comments Established Patient Follow-Up 6 month fo lisa rosadoPt states she's had increased SOB, dizziness and some palpitations since having COVID last fall. Reason Onset Date Comments Opened In Error 10/13/2022 Reason Onset Date Comments Community Monitoring Outreach 12/20/2022 CD M follow up Reason Onset Date Comments CDM 01/17/2023 Follow up call Reason Onset Date Comments CDM 02/10/2023 Community [facility] [facility] Outreach Call Reason Comments Patient Question Patient Update Patient miss remote check due to equipment was not working and she currently waiting on new equipment to come to home. Please call patient at [phone] to mio appointment. Reason Onset Date Comments CDM 03/07/2023 [facility] Outreach Call Reason Comments Follow Up Patient slipped and fell in shower 2 weeks ago and has been going to Chiropractor. He recommending imaging d/t pain and difficulty with ambulating. Reason Comments Follow Up SOCORRO POLK 03/30 DYSPNEA ON EXERTION , SSS,HTN SOCORRO GANDARA 11/01/22REMOTE PACE CHECK 01/17/23EKG TODAY Occasional dizziness but feels it is sinus related Reason Comments Patient Question Patient Update Reason Onset Date Comments CDM 04/11/2023 Community [facility] Outreach Call FOR RECORDS PERTAINING TO PATIENTS WHO ARE OR HAVE BEEN ENROLLED IN A CHEMICAL DEPENDENCY/SUBSTANCEABUSE PROGRAM, SOME INFORMATION MAY BE OMITTED. This clinical summary was aggregated from multiple sources. Caution should be exercised in using it in the provision of clinical care. This summary normalizes information from multiple sources, and as a consequence, information in this document may materially change the coding, format and clinical context of patient data. In addition, data may be omitted in some cases. CLINICAL DECISIONS SHOULD BE BASED ON THE PRIMARY CLINICAL RECORDS. [facility] [employer] provides no warranty or guarantee of the accuracy or completeness of information in this document.
== END 2023-06-29 17:44 | disposition home or self-care (01) ==
PROVIDERS: Emergency Provider Emergency Medicine; PCP Family Medicine; Visit Provider Emergency Medicine
DX: J32.9 Chronic sinusitis, unspecified (principal); R06.02 Shortness of breath; G47.33 Obstructive sleep apnea (adult) (pediatric); Z86.718 Personal history of other venous thrombosis and embolism; Z95.0 Presence of cardiac pacemaker
CPT/HCPCS: 71275; 80048; 83880; 84484; 85025; 85379; 87631; 93005; 96374; 96375; 99284; Q9967; A4216

== ENCOUNTER → 2023-07-01 | Outpatient (CLI) | payer MEDICARE, OTHER, SELFPAY | END | disposition home or self-care (01) | LOC: SL 10:36 | PROVIDERS: PCP Family Medicine; Visit Provider Nurse Practitioner Acute Care | DX: Z00.00 Encounter for general adult medical examination without abnormal findings (principal) ==

== ENCOUNTER 2023-08-22 11:26 | Emergency (ER) | payer MEDICARE, OTHER, SELFPAY ==
[2023-08-22] VITALS (8 sets, daily range): BP systolic 140–146; BP diastolic 59–87; PULSE 77–98; RESP 16–20; TEMP 36.4–36.6; O2SAT 94–100; BMI 41.3
--- NOTE | 2023-08-22 11:51 | EKG12_ITS ---
Test Reason : SOB Blood Pressure : / mmHG Vent. Rate : 061 BPM Atrial Rate : 061 BPM P-R Int : 232 ms QRS Dur : 082 ms QT Int : 398 ms P-R-T Axes : 000 -27 014 degrees QTc Int : 400 ms Atrial-paced rhythm with prolonged AV conduction Moderate voltage criteria for LVH, may be normal variant ( R in aVL , Lacho product ) Cannot rule out Anterior infarct , age undetermined Abnormal ECG Confirmed by RADHA WORKMAN, ORION ([id number]), editor farm journal JAYJAY HASKINS ([id number]) on 08/29/2023 1:21:49 PM Referred By: Confirmed By:PAU GARCIA MD
--- NOTE | 2023-08-22 11:55 | EX.ED.DYSGE1 ---
HPI <ROSA Mcrae - Last Filed: 08/22/23 14:51> History of Present Illness Chief Complaint: Shortness of Breath Narrative Narrative: Patient is a 82-year-old female with history of hypertension hyperlipidemia history of blood clot several years ago sleep apnea who presents to the emergency department for ongoing shortness of breath has been waxing and waning for the last 30 days. Patient has seen urgent care, her PCP x 2. Patient is placed on doxycycline to, as well as a steroid prescription. Patient states she is still having dizzy spells, she is still feeling short of breath, she talk to her doctor referred her to the emergency department. Patient is also complaining of urine symptoms such as frequency. Patient denies any fever or chills. Denies any sick contacts. Denies any specific chest pain. PFSH <ROSA Mcrae - Last Filed: 08/22/23 14:51> [facility] Medical History Acute asthma exacerbation Acute back pain with sciatica Allergic rhinitis Asthma Bradycardia Bronchiectasis Bronchitis Cardiac pacemaker in situ Chronic cough Chronic sinusitis CPAP (continuous positive airway pressure) dependence EVANS (dyspnea on exertion) DVT (deep venous thrombosis) Edema of both legs GERD (gastroesophageal reflux disease) Hemorrhoids Hyperlipidemia Hypertension Multiple environmental allergies Non-smoker MONTRELL (obstructive sleep apnea) Osteoarthrosis Overweight Pacemaker Postnasal drip Pulmonary hypertension Seasonal allergies Seasonal and perennial allergic rhinitis Shingles (herpes zoster) polyneuropathy Shortness of breath Sick sinus syndrome Sinusitis SVT (supraventricular tachycardia) Syncope Vitamin D deficiency Home Medications cholecalciferol (vitamin D3) 125 mcg (5,000 unit) capsule 5,000 unit PO DAILY 05/06/17 [History Last Taken 05/01/18] albuterol sulfate 90 mcg/actuation aerosol inhaler 1 - 2 puff inhalation Q4H PRN PRN shortness of breath or wheezing #1 device 08/31/17 [Rx Last Taken Unknown] acetaminophen 325 mg tablet (Tylenol) 650 mg (2 x 325 mg) PO Q6H PRN PRN Pain Score 1-10/Temp > 100.7 F #0 tabs 04/08/21 [Rx Last Taken Unknown] guaifenesin 1,200 mg tablet, extended release 12 hr (Mucus Relief ER) 1,200 mg PO .prn 10/15/21 [History Last Taken Unknown] azelastine 137 mcg-fluticasone 50 mcg/spray nasal spray 1 spray intranasal BID 04/07/22 [History Last Taken Unknown] lisinopril 2.5 mg tablet 2.5 mg PO DAILY 04/04/23 [History Last Taken Unknown] Oral Appliace #1 ea 07/28/23 [Rx Last Taken Unknown] rosuvastatin 5 mg tablet 5 mg PO QDAY 07/28/23 [History Last Taken Unknown] benzonatate 100 mg capsule 100 mg PO TID PRN 08/22/23 [History Last Taken Unknown] doxycycline hyclate 100 mg tablet 100 mg PO BID 08/22/23 [History Last Taken Unknown] prednisone 10 mg tablet mg PO 08/22/23 [History Last Taken Unknown] prednisone 20 mg tablet 40 mg (2 x 20 mg) PO DAILY 5 days #10 tabs 08/22/23 [Rx Last Taken Unknown] Allergy/AdvReac Type Severity Reaction Status Date / Time thiopental [From Pentothal] Allergy Intermediate Other Verified 08/22/23 11:27 grass pollen Allergy Mild Other - Verified 08/22/23 11:27 sneezing and congestion mold Allergy Mild Other - Verified 08/22/23 11:27 sneezing Iodine and Iodide Containing Allergy Low blood Verified 08/22/23 11:27 Produc pressure Iodinated Contrast Media AdvReac Intermediate Other Verified 08/22/23 11:27 Family History Mother Heart disease Hypertension Myocardial infarction Father Heart disease Myocardial infarction Sister Diabetes Heart disease pacemaker Surgical History History of appendectomy History of colonoscopy History of esophagogastroduodenoscopy (EGD) History of total hip replacement S/P placement of cardiac pacemaker Total knee replacement status Total knee replacement status Social History Smoking Status: Never smoker alcohol intake: never substance use type: does not use ROS <ROSA Mcrae - Last Filed: 08/22/23 14:51> ROS ED ROS Narrative Constitutional: Negative for fever, chills, weight loss, weakness Eyes: Negative for vision loss, vision change, double vision ENT: Negative for any sore throat, ear pain, congestion Cardiovascular: Negative for any chest pain, tightness, palpitations Respiratory: Negative for any sputum production, hemoptysis. Positive for cough, dyspnea, dyspnea on exertion Gastrointestinal: Negative for any abdominal pain, nausea, vomiting, diarrhea, constipation, blood in stool, blood in vomit : Negative for any urinary frequency, dysuria, retention, blood in urine Muscle skeletal: Negative for any neck pain, back pain Neurological: Negative for any headache, syncope, dizziness Skin: Negative for any rashes, itching, abrasions, lacerations Psychiatric: Negative for any depression, anxiety, stress, suicidal ideation, homicidal ideation Hematologic: Negative for any excessive bruising, easy bleeding EXAM <ROSA Mcrae - Last Filed: 08/22/23 14:51> Physical Exam Narrative Exam Narrative: Vital signs reviewed. HEET: Head normocephalic atraumatic, TMs clear bilaterally. Posterior pharynx is clear, moist mucous membranes. Nares clear bilaterally. Neck: Supple with no lymphadenopathy or tenderness. No signs of meningismus. Cardiac: Regular rate and rhythm no murmurs gallops or rubs, equal peripheral pulses bilaterally. Respiratory: Patient does have rhonchorous breath sounds in the right mid to upper lobe. No chest tenderness. Abdomen: Soft, nontender, nondistended. No abdominal bruit or pulsatile masses. No hepatosplenomegaly Extremities: No peripheral edema, no signs of gross trauma or deformity. Active full range of motion of all extremities. Neuro: Cranial nerves II through XII intact, no focal neurological deficits. Skin: Clean dry and intact with no rash, purpura, petechiae, vesicles or pustules. Backs/flank: No CVA tenderness, no midline spinal tenderness, no deformity. Psych: Normal mood and affect. No SI, HI or acute psychosis. Const Vital Signs: 08/22/23 11:27 08/22/23 11:29 08/22/23 11:58 Temperature 97.6 F L 97.6 F L Temperature Source Temporal Temporal Pulse Rate 82 77 Respiratory Rate 20 H 16 Respiratory Effort Respiratory Depth Respiratory Pattern Blood Pressure 146/78 H 146/78 H Blood Pressure Mean 100 100 Pulse Ox 99 100 Oxygen Delivery Method Room Air Room Air Room Air 08/22/23 11:58 08/22/23 12:18 08/22/23 12:29 Temperature 97.5 F L Temperature Source Temporal Pulse Rate 80 98 Respiratory Rate 16 17 Respiratory Effort Short of Breath Respiratory Depth Normal Respiratory Pattern Normal Blood Pressure 146/87 H Blood Pressure Mean 106 Pulse Ox 97 Oxygen Delivery Method Room Air Room Air 08/22/23 13:00 08/22/23 14:00 Temperature 97.5 F L 97.9 F Temperature Source Temporal Temporal Pulse Rate 91 82 Respiratory Rate 20 H 17 Respiratory Effort Respiratory Depth Respiratory Pattern Blood Pressure 140/68 H 145/59 H Blood Pressure Mean 92 87 Pulse Ox 94 97 Oxygen Delivery Method Room Air Room Air Positive well nourished and well developed General Appearance ED: well developed <Dr. Michelle Ray DO - Last Filed: 08/22/23 14:42> Physical Exam Const Vital Signs: 08/22/23 11:27 08/22/23 11:29 08/22/23 11:58 Temperature 97.6 F L 97.6 F L Temperature Source Temporal Temporal Pulse Rate 82 77 Respiratory Rate 20 H 16 Respiratory Effort Respiratory Depth Respiratory Pattern Blood Pressure 146/78 H 146/78 H Blood Pressure Mean 100 100 Pulse Ox 99 100 Oxygen Delivery Method Room Air Room Air Room Air 08/22/23 11:58 08/22/23 12:18 08/22/23 12:29 Temperature 97.5 F L Temperature Source Temporal Pulse Rate 80 98 Respiratory Rate 16 17 Respiratory Effort Short of Breath Respiratory Depth Normal Respiratory Pattern Normal Blood Pressure 146/87 H Blood Pressure Mean 106 Pulse Ox 97 Oxygen Delivery Method Room Air Room Air 08/22/23 13:00 08/22/23 14:00 Temperature 97.5 F L 97.9 F Temperature Source Temporal Temporal Pulse Rate 91 82 Respiratory Rate 20 H 17 Respiratory Effort Respiratory Depth Respiratory Pattern Blood Pressure 140/68 H 145/59 H Blood Pressure Mean 92 87 Pulse Ox 94 97 Oxygen Delivery Method Room Air Room Air MDM <ROSA Mcrae - Last Filed: 08/22/23 14:51> MDM Lab Data Labs: Laboratory Results - last 24 hr 08/22/23 08/22/23 12:00 13:15 WBC 9.5 RBC 4.40 Hgb 13.2 Hct 41.0 MCV 93.2 MCH 30.0 MCHC 32.2 RDW Std Deviation 45.0 H RDW Coeff of Yecenia 13.2 Plt Count 170 MPV 9.5 Immature Gran % (Auto) 0.600 Neut % (Auto) 83.7 H Lymph % (Auto) 10.7 L Waller % (Auto) 4.6 Eos % (Auto) 0.2 Baso % (Auto) 0.2 Absolute Neuts (auto) 8.0 H Absolute Lymphs (auto) 1.02 Nucleated RBC % 0 D-Dimer Quant (PE/DVT) 1.01 H* Sodium 135 L Potassium 4.3 Chloride 102 Carbon Dioxide 28.0 Anion Gap 5 BUN 27 H Creatinine 0.90 Estim Creat Clear Calc 60.19 Est GFR (MDRD) Af Amer 77 Est GFR (MDRD) Non-Af 64 BUN/Creatinine Ratio 30.0 H Glucose 109 H Calcium 9.4 Troponin I High Sens 11 B-Natriuretic Peptide 35.6 Urine Color Yellow Urine Clarity Clear Urine pH 6.5 Ur Specific [place] 1.010 Urine Protein Negative Urine Glucose (UA) Normal Urine Ketones Negative Urine Occult Blood Negative Urine Nitrite Negative Urine Bilirubin Negative Urine Urobilinogen Normal Ur Leukocyte Esterase Negative Urine RBC 0 SEEN Urine WBC 0 SEEN Ur Squamous Epith Cells 0 SEEN Urine Bacteria 0 SEEN Urine Mucus 0 SEEN Radiography Diagnostic Testing: Clinical Impression(s) from Imaging Studies Chest X-Ray 08/22/23 12:35 IMPRESSION: No acute abnormality is seen. Electronically Signed: Paolo Gutierrez MD at 13:19 EDT , Chest CTA 08/22/23 13:57 IMPRESSION: No evidence of pulmonary embolism. Stable bilateral parapelvic cysts as well as renal cysts. Electronically Signed: Paolo Gutierrez MD at 14:29 EDT , EKG EKG shows atrial paced rhythm, rate of 61 bpm: Attestation: I personally reviewed and interpreted this EKG as follows: Comments: Atrial paced rhythm, rate of 61 bpm, CA interval 232 ms, QRS duration 82 ms, no acute ST elevation, no acute infarct noted. Treatment and Re-Evaluation :: Differential diagnosis includes however is not limited to: Community-acquired pneumonia, ACS, ME, PE, viral syndrome, COPD exacerbation Patient appears to be in no obvious respiratory distress, patient's vital signs are stable, patient is not hypoxic at rest. Presenting to the emergency department with complaints of ongoing shortness of breath, dyspnea on exertion for the last month. Patient has been on 2 rounds of antibiotics as well as steroids. Patient will receive a cardiac workup including troponins, dimer, BNP. EKG will be completed, two-view chest x-ray will be completed. Patient be given breathing treatments, all radiologic examinations were read, reviewed by the emergency department attending. From these reads, a plan of care will be put in place. Patient will be reevaluated. Patient CBC was unremarkable, patient's chemistries were unremarkable, patient's BNP was negative, troponin was negative. No evidence of any ACS or ME. Patient did have an elevated D-dimer at 1.01, patient will need to have a CTA of the chest. Patient's x-ray shows no acute abnormality is seen. This was interpreted the ER physician. Patient's urinalysis was negative for infection. Patient CT scan of the chest will use contrast, patient does have a contrast allergy, patient was premedicated. Patient will receive a CTA. CT scan showed no evidence of pulmonary embolism. Stable bilateral parapelvic cysts as well as renal cyst. At this time, patient is stable, patient is not hypoxic. Do believe the patient be discharged home. Patient will follow-up outpatient. There is no evidence suspect any bacterial infection, however patient will receive 6 days of prednisone. Given her first dose here. Patient will have a prescription for prednisone. Stable for discharge. Patient <Dr. Michelle Ray, DO - Last Filed: 08/22/23 14:42> [facility] Narrative Medical decision making narrative: I have personally performed a face to face assessment of the patient and have reviewed the WALT Note. I performed a substantive portion of the visit including all aspects of the following. My mayo findings include: History is [patient presents to the emergency department with complaint of shortness of breath for about a month. Patient states that she has had a cough that is mostly nonproductive. She has been on doxycycline and prednisone. She felt a little bit better on prednisone but started feeling worse again. She complains of exertional dyspnea and having to stop often with activity. She denies chest pain. She does have remote history of PE but currently not anticoagulated. Patient also with history of asthma and bronchiectasis. She uses CPAP at night for obstructive sleep apnea. She denies recent travel or surgery.] Exam is [HEENT-PERRLA, EOMI. Cranial nerves II through XII grossly intact. TMs clear. Mucous membranes moist. No adenopathy. Cardiovascular-regular rate and rhythm without murmur or ectopy Lungs-somewhat coarse breath sounds bilaterally. She has some end expiratory wheezes noted bilaterally. No significant conversational dyspnea. No significant tachypnea or accessory muscle use or retractions. Abdomen-normoactive bowel sounds, soft, nontender, no rebound or rigidity, no peritoneal signs. Extremities-intact ?4, normal range of motion, normal pulses, atraumatic] +1 edema both lower extremities. Medical Decison Making [patient presents with dyspnea that is been going on for over a month. 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 She sees pulmonology Dr. Martins. IV line established on arrival. EKG obtained showed atrial paced rhythm with moderate criteria for LVH. CBC with differential count of 9.5 with hemoglobin 13.2 and platelet count of 170. Chemistries unremarkable. Troponin was normal at 11. BNP was normal at 35.6. D-dimer elevated 1.01. CT of the chest was ordered and obtained which showed no evidence for PE. Patient had to be premedicated with Solu-Medrol and Benadryl prior to scan. Urinalysis was normal. This point etiology of her dyspnea is unclear but suspect reactive airway disease picture. 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 She will be started on prednisone. I do not feel antibiotics are indicated. Vital signs are stable.] Other additions or changes: [None] Lab Data Attestation: I reviewed the patient's lab results. Labs: Laboratory Results - last 24 hr 08/22/23 08/22/23 12:00 13:15 WBC 9.5 RBC 4.40 Hgb 13.2 Hct 41.0 MCV 93.2 MCH 30.0 MCHC 32.2 RDW Std Deviation 45.0 H RDW Coeff of Yecenia 13.2 Plt Count 170 MPV 9.5 Immature Gran % (Auto) 0.600 Neut % (Auto) 83.7 H Lymph % (Auto) 10.7 L Waller % (Auto) 4.6 Eos % (Auto) 0.2 Baso % (Auto) 0.2 Absolute Neuts (auto) 8.0 H Absolute Lymphs (auto) 1.02 Nucleated RBC % 0 D-Dimer Quant (PE/DVT) 1.01 H* Sodium 135 L Potassium 4.3 Chloride 102 Carbon Dioxide 28.0 Anion Gap 5 BUN 27 H Creatinine 0.90 Estim Creat Clear Calc 60.19 Est GFR (MDRD) Af Amer 77 Est GFR (MDRD) Non-Af 64 BUN/Creatinine Ratio 30.0 H Glucose 109 H Calcium 9.4 Troponin I High Sens 11 B-Natriuretic Peptide 35.6 Urine Color Yellow Urine Clarity Clear Urine pH 6.5 Ur Specific [place] 1.010 Urine Protein Negative Urine Glucose (UA) Normal Urine Ketones Negative Urine Occult Blood Negative Urine Nitrite Negative Urine Bilirubin Negative Urine Urobilinogen Normal Ur Leukocyte Esterase Negative Urine RBC 0 SEEN Urine WBC 0 SEEN Ur Squamous Epith Cells 0 SEEN Urine Bacteria 0 SEEN Urine Mucus 0 SEEN Radiography Diagnostic Testing: Clinical Impression(s) from Imaging Studies Chest X-Ray 08/22/23 12:35 IMPRESSION: No acute abnormality is seen. Electronically Signed: Paolo Gutierrez MD at 13:19 EDT , Chest CTA 08/22/23 13:57 IMPRESSION: No evidence of pulmonary embolism. Stable bilateral parapelvic cysts as well as renal cysts. Electronically Signed: Paolo Gutierrez MD at 14:29 EDT , 1 view chest x-ray obtained interpreted by myself as no evidence of infiltrate or pneumothorax or acute disease process. Radiology in agreement. Discharge Plan Triage Chief Complaint: Shortness of Breath ED Midlevel Provider: Tom Pradhan ED Provider: Michelle Ray Dx/Rx/DC Orders Clinical Impression: Acute dyspnea, RAD (reactive airway disease) Instructions: ED Bronchitis with Wheezing (Adult), ED Dyspnea Prescriptions: New prednisone 20 mg tablet 40 mg PO DAILY 5 Days Qty: 10 0RF No Action cholecalciferol (vitamin D3) 5,000 unit capsule 5,000 unit PO DAILY albuterol sulfate 90 mcg/actuation HFA aerosol inhaler 1 - 2 puff INHALATION Q4H PRN PRN (Reason: shortness of breath or wheezing) Qty: 1 3RF Mucus Relief ER 1,200 mg tablet extended release 12hr 1,200 mg PO .prn azelastine-fluticasone 137-50 mcg/spray spray,non-aerosol 1 spray intranasal BID Rx Instructions: administer into each nostril lisinopril 2.5 mg tablet 2.5 mg PO DAILY Patient Comments: Take 1 tablet by mouth once daily. rosuvastatin 5 mg tablet 5 mg PO QDAY (DME) Oral Appliace See Rx Instructions .ROUTE .MEDSUPPLY Qty: 1 0RF Rx Instructions: As directed acetaminophen [Tylenol] 325 mg Tablet 650 mg PO Q6H PRN PRN (Reason: Pain Score 1-10/Temp > 100.7 F) Qty: 0 0RF benzonatate 100 mg capsule 100 mg PO TID PRN prednisone 10 mg tablet PO doxycycline hyclate 100 mg tablet 100 mg PO BID Primary Care Provider: Gil Wiseman Referrals: Gil Wiseman MD [Primary Care Provider] - Shukri Martins DO [Med Staff - Active Staff] - 5-7 Days Activity Restrictions/Additional Instructions: Take prednisone until finished. Disposition Disposition: Home, Self Care
[2023-08-22] MEDS: Ipratropium/Albuterol Sulfate 3 ML AMPUL.NEB INHALATION (12:02)
[2023-08-22] MEDS: Albuterol 2.5 MG/3 ML VIAL.NEB. INHALATION (12:02)
[2023-08-22 12:12] LABS: Absolute Lymphocyte Count 1.02 X10^3/uL (0.83-4.51); Basophil# 0.02 X10^3/uL; Basophil% 0.2 % (0-1); Eosinophil# 0.02 X10^3/uL; Eosinophils% 0.2 % (0-5); Hemoglobin 13.2 g/dL (12.0-15.0); Lymphocyte # 1.02 X10^3/ul (0.83-4.51); Lymphocyte % 10.7 % (19-41); Mean Corp Hgb Conc 32.2 g/dL (32-36); Mean Corpuscular Volume 93.2 fL (81-99); Mean Platelet Vol. 9.5 fl (6.2-12.0); Monocyte# 0.44 X10^3/uL; Monocyte% 4.6 % (0-10); NRBC Flagged by Analyzer 0 % (0-5); Neutrophil # 7.96 X10^3/uL (2.7-7.7); Neutrophil % 83.7 % (47-70); Platelet Count 170 K/mm3 (150-450); RBC Distribution Width CV 13.2 % (11.6-14.6); White Blood Count 9.5 K/mm3 (4.4-11.0)
[2023-08-22 12:31] LABS: D-Dimer Quantitative (DVT/PE) 1.01 FEU/ug/m (0.27-0.49)
[2023-08-22 12:32] LABS: Anion Gap 5 (5-15); BUN 27 mg/dL (7-18); Calcium,Total 9.4 mg/dL (8.5-10.1); Chloride 102 mmol/L (98-107); EST Glomerular Filtration Rate 64 mL/min (>60); Est Glom Filt Rate - Afr Amer 77 mL/min (>60); Estimated Creatinine Clearance 60.19 ml/min; Glucose 109 mg/dL (74-106); Potassium 4.3 mmol/L (3.5-5.1); Sodium Level 135 mmol/L (136-145); Troponin-I HS 11 pg/mL (3.0-54.0)
--- NOTE | 2023-08-22 12:35 | RAD_ITS ---
STUDY: X-RAY CHEST REASON FOR EXAM: Female, 82 years old. One month history of shortness of breath. TECHNIQUE: PA and lateral views of the chest. COMPARISON: Comparison is made with prior study dated April 02, 2021. FINDINGS: EKG electrodes are seen. A left-sided dual-chamber pacemaker is present. A loop recorder device is seen overlying the medial left upper quadrant. Limited inspiratory effort. No pulmonary infiltrate is seen. There is no demonstrated pleural abnormality. Normal size heart. Normal mediastinum and massiel. Normal visualized pulmonary arteries. There is atherosclerotic calcification of the aortic arch with tortuosity. Normal visualized thoracic spine. Normal visualized ribs, clavicles, and shoulders. There is no demonstrated abnormality of the visualized soft tissue structures of the upper abdomen. RAD/Chest PA and Lateral IMPRESSION: No acute abnormality is seen. Electronically Signed: Paolo Gutierrez MD at 13:19 EDT ,
[2023-08-22 12:42] LABS: BNP,B-Type NATRIURETIC PEPTIDE 35.6 pg/mL (0-100)
[2023-08-22] MEDS: DiphenhydrAMINE 50 MG/ML Syringe IV (12:58)
[2023-08-22 13:22] LABS: Bacteria 0 SEEN /hpf (None Seen); Mucous, Urine 0 SEEN /hpf (<or=2+); Red Blood Cells-Urine 0 SEEN /hpf (0-5); Squamous Epithelial Cells - UA 0 SEEN /hpf (5-10); White Blood Cells 0 SEEN /hpf (0-5)
[2023-08-22 13:23] LABS: Color, Urine Yellow (Yellow); Glucose, Dipstick Normal (Normal); Ketone-Dipstick Negative (Negative); Leukocyte Esterase-Dipstick Negative /ul (Negative); Nitrite-Dipstick Negative (Negative); Occult Blood-Urine Negative /ul (Negative); Protein-Dipstick Negative (Negative); Urine Bilirubin Dipstick Negative (Negative); Urine Clarity Clear (Clear); Urine Urobilinogen Normal (Normal); Urine pH 6.5 (5.0 - 8.0)
--- NOTE | 2023-08-22 13:57 | CT_ITS ---
STUDY: CTA CHEST REASON FOR EXAM: Female, 82 years old. Shortness of breath RADIATION DOSAGE (If Supplied By Facility): CTDIvol = ( 12.60 ) mGy, DLP = ( 493.66 ) mGycm TECHNIQUE: The examination was performed with the intravenous administration of IV 100mL [id number]-370. Post-processing of the angiographic images was performed, with multiplanar reformation and 3D reconstruction. Individualized dose optimization techniques were used for this CT. COMPARISON: Comparison is made with prior study dated June 29, 2023. FINDINGS: Normal enhancement of the main pulmonary artery and right and left pulmonary arteries. Normal enhancement of the bilateral peripheral pulmonary arteries. There is no demonstrated pulmonary embolism. There is atherosclerotic calcification of the aortic arch with tortuosity. There is no demonstrated aortic dissection. Normal heart and pericardium. A dual-chamber pacemaker is seen. Normal mediastinum. Normal hilar regions. Normal visualized trachea and bronchi. The lungs are well expanded. Stable linear scarring at the lung bases. Normal pleura. Normal chest wall structures. There are degenerative changes of thoracic spine. Increased kyphosis. There are bilateral parapelvic renal cysts. There is a 4.4 cm x 5.3 cm cyst in the upper pole of the left kidney. 1.5 cm cyst in the midpole of the right kidney. CT/CTA Chest W/WO Contrast IMPRESSION: No evidence of pulmonary embolism. Stable bilateral parapelvic cysts as well as renal cysts. Electronically Signed: Paolo Gutierrez MD at 14:29 EDT ,
[2023-08-22] MEDS: predniSONE 20 MG Tablet 40 MG PO (14:58)
== END 2023-08-22 14:59 | disposition home or self-care (01) ==
PROVIDERS: Nurse Practitioner; Emergency Provider Emergency Medicine; PCP Family Medicine; Visit Provider Emergency Medicine
DX: R06.00 Dyspnea, unspecified (principal); G47.33 Obstructive sleep apnea (adult) (pediatric); J45.909 Unspecified asthma, uncomplicated; Z86.718 Personal history of other venous thrombosis and embolism; Z95.0 Presence of cardiac pacemaker
CPT/HCPCS: 71046; 71275; 80048; 81001; 83880; 84484; 85025; 85379; 87631; 93005; 94640; 96374; 96375; 99284; Q9967; A4216

== ENCOUNTER 2024-01-13 13:00 | Outpatient (RCR) | payer MEDICARE, OTHER, SELFPAY ==
--- NOTE | 2023-12-29 13:55 | HP.PTEVAL_ITS ---
Patient's Visit Information Visit Information Visit Information: GISELLA AUGUSTE is a 83 year old F referred to Physical Therapy by Dr. Gil Wiseman MD with a diagnosis of Unsteady gait. Date of Evaluation: 11/30/23 Physical Therapist: Ji Ayala, PT, ATC Visit Plan Frequency: 2x /Week Duration: 4-6 Weeks Plan: 12/29/23- Cont with B LE strengthening, balance and proprio, gait trainin g, sit to stand transfer, nustep, and HEP Subjective Subjective: Pt reports she had COVID 3 years ago. Pt reports she was really hit hard, and had to stay in the hospital for over 6 weeks. Pt reports she became really debilitated over that time span and has nevber really recovered. Pt notes she has regressed the most over the past 6-8 months. Pt reports now she has a difficulty time with trying to walk very far. Pt also notes she has a difficult time with trying to stand up from a seated postition. Pt reports she has not experienced any falls, but notes she loses her balance often. Pt notes she has been ambulating with a rollator for the past 2 months which has really hleped her to improve her balance and walking distance. Pt denies her LE's being numb at this time. Pt denies pain on todays date Objective Objective: Neuro: B LE sensation is WNL to light touch MMT: B LE's are grossly 4-/5 throughout TU sec sit to stand 30 sec: 0 reps Balance/Special Test Scores Lower Extremity Functional Score: 31 Goals Goal 1:: Pt will perform 5 sit to stand transfers in 30 seconds to aid with I at home Goal Time Frame: 4-6 Weeks Goal 2:: Pt will perform TUG test in under 10 sec to aid with community mobility Goal Time Frame: 4-6 Weeks Goal 3:: Increase B LE strength x 1 grade to aid with house chores Goal Time Frame: 4-6 Weeks Goal 4:: I with HEP Goal Time Frame: 4-6 Weeks Rehabilitation Potential Physical Therapy Diagnosis: Pt has LE weakness, difficulty with transfers, and unsteady gait secondary to debilitation Rehabilitation Potential: Good Anticipated Interventions Patient/Client Instruction: Educate patient on: Condition and Plan of Care For the Purpose of:: To improve self management Therapeutic Exercise to Include: Strength training, Endurance training, Balance training, Gait and locomotor training and Active ROM For the Purpose of:: To improve muscle performance and motor function, To improve ability to perform ADL's and To increase tolerance to activity/condition/position Text: Thank you for the opportunity to evaluate your patient. For Medicare and Medicare HMO plans, please review the plan of care and approve it. It will need to be FAXED BACK to us at [phone] for Medicare purposes. For Medicare only, by signing this I certify the plan of care. Please let me know if there are questions or concerns regarding this plan of car e. Physician Signature: Date:
--- NOTE | 2023-12-29 13:55 | HP.PTREVAL_ITS ---
Re-Evaluation Intro: Dr. Gil Wiseman MD, It has been my pleasure to treat GISELLA AUGUSTE over the last 8 visits for Unsteady gait. Please see the progress note below for an update on the physical therapy plan of care! Subjective Subjective: Pt states she feels SOB and tired. Pt reports tx is helping but feels like she could need more to help work on her balance due to feeling unsteady when she transfers sit to stand. Objective Objective/Function: Sit to stand transfers x6 with use of B UE's TUG; 21 secs MMT: R LE is grossly 4+/5 throughout while L LE 4-/5 throughout Minor improvements At this time. Plan Plan Plan: 12/29/23- Cont with B LE strengthening, balance and proprio, gait training, sit to stand transfer, nustep, and HEP Balance/Gait/Functional tests Balance/Special Test Scores Lower Extremity Functional Score: 31 Goals Goals Goal 1:: Pt will perform 5 sit to stand transfers in 30 seconds to aid with I at home Goal Time Frame: 4-6 Weeks Goal Progress: Progressing Goal 2:: Pt will perform TUG test in under 10 sec to aid with community mobility Goal Time Frame: 4-6 Weeks Goal Progress: Progressing Goal 3:: Increase B LE strength x 1 grade to aid with house chores Goal Time Frame: 4-6 Weeks Goal Progress: Progressing Goal 4:: I with HEP Goal Time Frame: 4-6 Weeks Goal Progress: Progressing Anticipated Interventions Anticipated Interventions Patient/Client Instruction: Educate patient on: Condition and Plan of Care For the Purpose of:: To improve self management Therapeutic Exercise to Include: Strength training, Endurance training, Balance training, Gait and locomotor training and Active ROM For the Purpose of:: To improve muscle performance and motor function, To improve ability to perform ADL's and To increase tolerance to activity/cond ition/position Re-Evaluation Ending Re-evaluation ending: Please do not hesitate to contact me at [phone] by phone or Fax: if you have questions or concerns regarding this new plan of care! Sincerely, Ji Ayala, PT, ATC
== END 2024-01-13 19:00 | disposition home or self-care (01) ==
LOC: PT 13:00
PROVIDERS: PCP Family Medicine; Referring Provider Family Medicine; Visit Provider Family Medicine
DX: R26.81 Unsteadiness on feet (principal)
CPT/HCPCS: 97110; 97161; 97530

== ENCOUNTER 2024-02-07 10:13 | Emergency (ER) | payer MEDICARE, OTHER, SELFPAY ==
[2024-02-07 10:14] VITALS: BP 142/73; PULSE 77; RESP 16; TEMP 36.3; O2SAT 98
[2024-02-07 10:15] VITALS: BMI 42.3
--- NOTE | 2024-02-07 10:29 | EX.ED.VIS.UR ---
HPI HPI - URI History of Present Illness Chief Complaint: Shortness of Breath Informant: patient Onset/Context/Timing Onset: Days Context: Gradual Onset Timing: Continuous Current Severity: Mild Maximum Severity: Mild Associated Symptoms Associated Symptoms: Positive for Productive Cough Narrative Narrative: 83-year-old female history of hypertension, DVT and pacemaker. She has had a cough of off colored sputum for about a week. Says she has a history of bronchitis. Said some mild wheezing. No chest pain. No hemoptysis. No fever. No nausea, vomiting or diarrhea. No chest pain. Prior similar symptoms: Yes Recent Illness/Hospitalization: No ROS ROS ED ROS Narrative Cough. Subjective shortness of breath. Constitutional Constitutional ED: Denies chills Eyes Eyes: Denies blurry vision ENT ENT ED: Denies ear pain Cardiovascular Cardiovascular: Denies chest pain Respiratory/Chest Respiratory/Chest: Reports cough and dyspnea; Denies dyspnea on exertion Gastrointestinal Gastrointestinal: Denies abdominal pain Genitourinary Genitourinary ED: Denies dysuria or hematuria Musculoskeletal Musculoskeletal: Denies arthralgias Integumentary Denies abscess Neurologic Neurologic: Denies headache(s) Psychiatric Psychiatric: Denies anxiety Endocrine Endocrinology: Denies cold intolerance Hematologic/Lymphatic Hematologic/Lymphatic: Denies easy bleeding Allergic/Immunologic Allergic/Immunologic ED: Denies mouth swelling PFSH PFSH Medical History Non-smoker CPAP (continuous positive airway pressure) dependence Hypertension DVT (deep venous thrombosis) Edema of both legs Seasonal and perennial allergic rhinitis Multiple environmental allergies Pacemaker Shingles (herpes zoster) polyneuropathy Bronchiectasis Chronic sinusitis EVANS (dyspnea on exertion) MONTRELL (obstructive sleep apnea) Pulmonary hypertension Allergic rhinitis Asthma Sinusitis Acute back pain with sciatica Vitamin D deficiency Cardiac pacemaker in situ Syncope Sick sinus syndrome GERD (gastroesophageal reflux disease) Bradycardia SVT (supraventricular tachycardia) Postnasal drip Hemorrhoids Osteoarthrosis Hyperlipidemia Overweight Seasonal allergies Chronic cough Acute asthma exacerbation Bronchitis Shortness of breath Home Medications ?Medication ?Instructions ?Recorded ?Last Taken ?Type cholecalciferol (vitamin D3) 125 5,000 unit PO DAILY 05/06/17 05/01/18 History mcg (5,000 unit) capsule albuterol sulfate 90 mcg/actuation 1 - 2 puff inhalation Q4H PRN PRN 08/31/17 Unknown Rx aerosol inhaler shortness of breath or wheezing #1 device acetaminophen 325 mg tablet 650 mg (2 x 325 mg) PO Q6H PRN PRN 04/08/21 Unknown Rx (Tylenol) Pain Score 1-10/Temp > 100.7 F #0 tabs guaifenesin 1,200 mg tablet, 1,200 mg PO .prn 10/15/21 Unknown History extended release 12 hr (Mucus Relief ER) lisinopril 2.5 mg tablet 2.5 mg PO DAILY 04/04/23 Unknown History Oral Appliace #1 ea 07/28/23 Unknown Rx rosuvastatin 5 mg tablet 5 mg PO QDAY 07/28/23 Unknown History benzonatate 100 mg capsule 100 mg PO TID PRN 08/22/23 Unknown History budesonide 160 mcg-glycopyr 9 2 inh inhalation BID #10.7 grams 09/09/23 Unknown Rx mcg-formot 4.8 mcg/actuation HFA inhaler (Breztri Aerosphere) fexofenadine 180 mg tablet 180 mg PO DAILY 09/09/23 Unknown History (Lauren Allergy) fluticasone propionate 50 2 spray intranasal DAILY #16 grams 09/09/23 Unknown Rx mcg/actuation nasal spray,suspension montelukast 10 mg tablet 10 mg PO QDAY 09/09/23 Unknown History ipratropium bromide 21 mcg (0.03 2 spray intranasal BID #30 mL 01/18/24 Unknown Rx %) nasal spray prednisone 20 mg tablet 40 mg (2 x 20 mg) PO DAILY 02/07/24 Unknown Rx wheezing 6 days #12 tabs Allergy/AdvReac Type Severity Reaction Status Date / Time thiopental (From Pentothal) Allergy Intermediate Other Verified 02/07/24 10:15 grass pollen Allergy Mild Other - Verified 02/07/24 10:15 sneezing and congestion mold Allergy Mild Other - Verified 02/07/24 10:15 sneezing Iodine and Iodide Containing Allergy Low blood Verified 02/07/24 10:15 Produc pressure Iodinated Contrast Media AdvReac Intermediate Other Verified 02/07/24 10:15 Family History Mother Heart disease Hypertension Myocardial infarction Father Heart disease Myocardial infarction Sister Diabetes Heart disease pacemaker Surgical History History of appendectomy S/P placement of cardiac pacemaker History of esophagogastroduodenoscopy (EGD) History of colonoscopy Total knee replacement status Total knee replacement status History of total hip replacement Social History Smoking Status: Never smoker alcohol intake: never substance use type: does not use EXAM Physical Exam Narrative Exam Narrative: Well-appearing 83-year-old female. Vital signs stable afebrile. Pulse ox 98% on room air no signs of hypoxia. H EENT exam unremarkable. Moist mucous membranes. Neck nontender no JVD. No lymphadenopathy. Lungs few scattered expiratory wheezes. No rales or rhonchi. Equal symmetrical. Heart regular rhythm rate about 75 no murmur. Chest wall and ribs nontender. Abdomen soft nontender. Moving all 4 extremities. Nontender without edema. Neurologically she is awake and alert no focal motor deficits. Answering questions and following commands. Const Vital Signs: 02/07/24 10:14 02/07/24 10:41 02/07/24 10:43 Temperature 97.4 F L Temperature Source Temporal Pulse Rate 77 67 Respiratory Rate 16 16 Respiratory Effort Normal Respiratory Pattern Normal Blood Pressure 142/73 H Blood Pressure Mean 96 Pulse Ox 98 Oxygen Delivery Method Room Air Room Air 02/07/24 11:15 Temperature 98.2 F Temperature Source Oral Pulse Rate 71 Respiratory Rate 18 Respiratory Effort Respiratory Pattern Blood Pressure 137/73 H Blood Pressure Mean 94 Pulse Ox 98 Oxygen Delivery Method Room Air Positive well nourished and well developed; Negative for cachectic or contractures General Appearance ED: well developed and NAD; Negative for cachectic, contractures, cyanotic, diaphoretic or pallor Nutritional Appearance: Negative for cachectic HEENT Reports moist mucous membranes normocephalic and atraumatic Throat: posterior oropharynx normal Eyes PERRL and EOMs intact bilaterally General Eye ED: Negative for pale conjunctiva or scleral icterus Neck no lymphadenopathy, supple, no meningeal signs and no JVD General: Negative for anterior neck swelling Resp normal respiratory effort and No clear to auscultation bilaterally Resp Narrative: Few scattered expiratory wheezes. Equal and symmetrical bilaterally. Auscultation: wheezes Cardio S1 normal heart sound and no murmurs Rate: regular rate Rhythm: regular rhythm GI non-tender, non-distended and no masses Inspection: Negative for abdominal distention Auscultation: normoactive bowel sounds Palpation: soft; Negative for tender or guarding Back/Spine no CVA tenderness and normal ROM General Back: Negative for CVA tenderness Cervical Spine: Negative for cervical spine tenderness Thoracic Spine / Upper Back: Negative for thoracic spinal tenderness Lumbar Spine / Lower Back: Negative for lumbar spinal tenderness Extremity normal to inspection and full ROM General Extremety ED: Negative for cyanosis or tenderness General Extremity: Negative for cyanosis Neuro oriented x3 and CN's II-XII intact bilaterally Sensorium / Orientation: alert, oriented to person, oriented to place and oriented to time; Negative for orientation impaired or lethargic Motor Exam: strength 5/5 throughout Psych mental status grossly normal Appearance: Negative for other Attitude: No agitated Mood & Affect: Negative for depressed or anxious Skin General Skin Exam: Negative for jaundice or pallor Lesions: no lesions Rashes: no rashes MDM MDM MDM Narrative Medical decision making narrative: 83-year-old female with subjective dyspnea. Clinically looks well. Pulse ox is 98% on room. She is not hypoxic. Chest x-ray will be obtained to rule out pneumonia. Clinically [place] is a viral URI. She will be given a DuoNeb aerosol for her expiratory wheezing. She had lab work done in July of this year was unremarkable at that time. Repeat exam patient is doing well at 11:30 AM. Her wheezing improved but not completely resolved with the aerosol and steroids. We discussed her chest x-ray results. Patient is comfortable being discharged home on prednisone 40 mg a day for 5 days. She will follow-up with her primary care physician at the [facility]. She knows return if worse. Patient does use CPAP at home. History & Record Review Discussion w/independent historian: Patient Additional record(s) reviewed:: Prior inpatient record, Prior outpatient record, Prior ED visit and Prior labs Radiography Chest X-Ray - ED: 2 View, Read by ED Physician, Heart, Lungs, Mediastinum, Bony Structures, No Acute Disease and Chronic Changes Diagnostic Testing: Clinical Impression(s) from Imaging Studies Chest X-Ray 02/07/24 10:30 IMPRESSION: Stable examinations with findings suggesting mild scarring at the lung bases. Electronically Signed: Paolo Gutierrez MD at 11:01 EDT , Chest x-ray, 2 views, AP and lateral interpreted by myself shows no acute abnormality. Chronic changes. Normal cardiac silhouette. No pneumonia. Left-sided pacemaker. Discharge Plan Triage Chief Complaint: Shortness of Breath ED Provider: Michel Olea Dx/Rx/DC Orders Clinical Impression: Acute viral bronchitis, Bilateral wheezing Instructions: ED Bronchitis with Wheezing (Adult) Prescriptions: New prednisone 20 mg tablet 40 mg PO DAILY 6 Days Qty: 12 0RF No Action cholecalciferol (vitamin D3) 5,000 unit capsule 5,000 unit PO DAILY albuterol sulfate 90 mcg/actuation HFA aerosol inhaler 1 - 2 puff INHALATION Q4H PRN PRN (Reason: shortness of breath or wheezing) Qty: 1 3RF Mucus Relief ER 1,200 mg tablet extended release 12hr 1,200 mg PO .prn lisinopril 2.5 mg tablet 2.5 mg PO DAILY Patient Comments: Take 1 tablet by mouth once daily. rosuvastatin 5 mg tablet 5 mg PO QDAY (DME) Oral Appliace See Rx Instructions .ROUTE .MEDSUPPLY Qty: 1 0RF Rx Instructions: As directed ipratropium bromide 21 mcg (0.03 %) spray,non-aerosol 2 spray intranasal BID Qty: 30 3RF Rx Instructions: administer into each nostril montelukast 10 mg tablet 10 mg PO QDAY fexofenadine [Lauren Allergy] 180 mg tablet 180 mg PO DAILY Breztri Aerosphere 160-9-4.8 mcg/actuation HFA aerosol inhaler 2 inh inhalation BID Qty: 10.7 6RF fluticasone propionate 50 mcg/actuation spray,suspension 2 spray intranasal DAILY Qty: 16 3RF acetaminophen [Tylenol] 325 mg Tablet 650 mg PO Q6H PRN PRN (Reason: Pain Score 1-10/Temp > 100.7 F) Qty: 0 0RF benzonatate 100 mg capsule 100 mg PO TID PRN Primary Care Provider: Gil Wiseman Referrals: Gil Wiseman MD [Primary Care Provider] - 3-5 Days if not improving Activity Restrictions/Additional Instructions: You have a viral respiratory infection with wheezing. You do not need antibiotics. Your chest x-ray look good. Prednisone 40 mg a day starting tomorrow for the next 6 days. Follow-up with your doctor if not improving or return if worse. Print Language: Djib[place]ian Disposition Disposition: Home, Self Care
--- NOTE | 2024-02-07 10:30 | RAD_ITS ---
STUDY: X-RAY CHEST REASON FOR EXAM: Female, 83 years old. Cough TECHNIQUE: PA and lateral views of the chest. COMPARISON: Comparison is made with prior study dated August 22, 2023. FINDINGS: EKG electrodes are seen. Stable mild increased markings at the lung bases suggestive of bibasilar scarring. Stable mild elevation of the right hemidiaphragm. A loop recorder device is once again seen in the left lower chest. There is no demonstrated pleural abnormality. There is borderline cardiomegaly. A left-sided dual-chamber pacemaker is seen. Normal mediastinum and massiel. Normal visualized pulmonary arteries. Normal visualized aortic arch and descending thoracic aorta. There is demineralization of the osseous structures. Increased kyphosis. Normal visualized ribs, clavicles, and shoulders. There is no demonstrated abnormality of the visualized soft tissue structures of the upper abdomen. RAD/Chest PA and Lateral IMPRESSION: Stable examinations with findings suggesting mild scarring at the lung bases. Electronically Signed: Paolo Gutierrez MD at 11:01 EDT ,
[2024-02-07 10:41] VITALS: PULSE 67; RESP 16
[2024-02-07] MEDS: Ipratropium/Albuterol Sulfate 3 ML AMPUL.NEB INHALATION (10:41)
[2024-02-07] MEDS: predniSONE 20 MG Tablet 40 MG PO (10:41)
[2024-02-07 10:43] VITALS: O2SAT 100
[2024-02-07 11:15] VITALS: BP 137/73; PULSE 71; RESP 18; TEMP 36.8; O2SAT 98
[2024-02-07 11:39] VITALS: BP 136/68; PULSE 72; RESP 16; TEMP 36.1; O2SAT 98
== END 2024-02-07 11:48 | disposition home or self-care (01) ==
PROVIDERS: Emergency Provider Emergency Medicine; PCP Family Medicine; Visit Provider Emergency Medicine
DX: J20.9 Acute bronchitis, unspecified (principal); G47.33 Obstructive sleep apnea (adult) (pediatric); J45.909 Unspecified asthma, uncomplicated; Z86.718 Personal history of other venous thrombosis and embolism; Z95.0 Presence of cardiac pacemaker
CPT/HCPCS: 71046; 94640; 99282; A4216

== ENCOUNTER → 2024-11-08 | Outpatient (CLI) | payer MEDICARE, OTHER, SELFPAY ==
--- NOTE | 2024-11-08 09:49 | PCM.PR.HP ---
History of Present Illness General Arrival date:: 11/08/24 Arrival time:: 09:45 Date of Referral:: 10/29/24 Date of Evaluation: 11/08/24 Referring Physician: Dr Andersen Primary Diagnosis: Interstitial Lung Disease History of Present Pulmonary Event mMRC Breathless Scale: When is the patient short of breath? Y/N Grade: Description of Breathlessness: 0 I only get breathless with strenuous exercise. 1 I get short of breath when hurrying on level ground or walking up a slight hill. 2 On level ground, I walk slower than people of the same age because of breathless, or have to stop for breath when walking at my own pace. 3 I stop for breath after walking 100 yards or after a few minutes on level ground. 4 I am too breathless to leave the house or I am breathless when dressing. Respiratory Problems: Yes Able to Speak in Full Sentences and Dyspnea with Activity Medications Home Medications cholecalciferol (vitamin D3) 125 mcg (5,000 unit) capsule 5,000 unit PO DAILY 05/06/17 albuterol sulfate 90 mcg/actuation aerosol inhaler 1 - 2 puff inhalation Q4H PRN PRN shortness of breath or wheezing #1 device 08/31/17 acetaminophen 325 mg tablet (Tylenol) 650 mg (2 x 325 mg) PO Q6H PRN PRN Pain Score 1-10/Temp > 100.7 F #0 tabs 04/08/21 guaifenesin 1,200 mg tablet, extended release 12 hr (Mucus Relief ER) 1,200 mg PO .prn 10/15/21 lisinopril 2.5 mg tablet 2.5 mg PO DAILY 04/04/23 Oral Appliace #1 ea 07/28/23 rosuvastatin 5 mg tablet 5 mg PO QDAY 07/28/23 benzonatate 100 mg capsule 100 mg PO TID PRN 08/22/23 budesonide 160 mcg-glycopyr 9 mcg-formot 4.8 mcg/actuation HFA inhaler (Breztri Aerosphere) 2 inh inhalation BID #10.7 grams 09/09/23 fexofenadine 180 mg tablet (Lauren Allergy) 180 mg PO DAILY 09/09/23 montelukast 10 mg tablet 10 mg PO QDAY 09/09/23 ipratropium bromide 21 mcg (0.03 %) nasal spray 2 spray intranasal BID #30 mL 01/18/24 prednisone 20 mg tablet 40 mg (2 x 20 mg) PO DAILY wheezing 6 days #12 tabs 02/07/24 amoxicillin 875 mg-potassium clavulanate 125 mg tablet 1 tab PO BID #20 tabs 02/22/24 fluticasone propionate 93 mcg/actuation breath activated aerosol (Xhance) 2 spray intranasal BID #16 mL 03/01/24 Allergies Allergies thiopental (From Pentothal) Allergy (Intermediate, Verified 02/07/24 10:15) Other TONGUE NUMB grass pollen Allergy (Mild, Verified 02/07/24 10:15) Other - sneezing and congestion mold Allergy (Mild, Verified 02/07/24 10:15) Other - sneezing Iodine and Iodide Containing Produc Allergy (Verified 02/07/24 10:15) Low blood pressure Iodinated Contrast Media Adverse Reaction (Intermediate, Verified 02/07/24 10:15) Other HYPOTENSION Secretions Cough:: Yes Sleep Disorder Evaluation Hx of Sleep Apnea: Yes Do you snore loudly (louder than talking or can be heard through closed doors)?: Yes Do you often feel tired/ fatigued/ sleepy during daytime?: Yes Has anyone observed you stop breathing during sleep?: Yes History of Hypertension (for STOP score): Yes STOP Results: Positive Medical Utilization Medical Devices Do you use a peak flow meter at home?: No Do you use a spacer device with your inhalers?: No Medical Utilization Number of hospital visits in the last year?: 1 Number of emergency room visits in the last year?: 1 Do you see your physician on a regular schedule?: Yes Advanced Directives Advanced Directives Do you have a Healthcare Power of Wheat Farmer?: Yes Living Will: Yes Advance Directives Information Provided: No Advance Directives on File: Yes (admitted this spring pt believes the hospital has on file) DNR Order?:: No Past Medical History Covid-19 Screening Physicial Symptoms Fever: No Unexplained muscle aches: No Current respiratory symptoms: No Upper respiratory infections symptoms: No Gastro-intestinal symptoms: No Sep-Cnmv-Iyuyif symptoms: No Other Clinical Concerns Has tested positive for COVID-19 in last 30 days: No Exposure Risk Had contact w/person w/symptoms or Covid-19 (+) last 14 days: No Has High Risk Exposures ID'd by Health dept/Inf Control team: No Pertinent Comorbidities 65 years or older:: Yes Lives in Assisted Living facility:: No Has a chronic lung disease or moderate to severe asthma:: Yes Has a serious heart condition:: No Immunocompromised:: No Severely obese (Body Mass Index of 40 or higher):: Yes Diabetic:: No Has chronic kidney disease undergoing dialysis:: No Has liver disease:: No Medical History Past Medical History (Updated 03/01/24 @ 15:28 by Bessy Estes DEEP FAT COOK FRY, DEEP FAT COOK FRY-C) Non-smoker Z78.9 CPAP (continuous positive airway pressure) dependence Z99.89 Hypertension I10 DVT (deep venous thrombosis) I82.409 Edema of both legs R60.0 Seasonal and perennial allergic rhinitis J30.89, J30.2 Multiple environmental allergies Z91.09 Pacemaker 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 Bronchiectasis J47.9 Chronic sinusitis J32.9 EVANS (dyspnea on exertion) R06.09 MONTRELL (obstructive sleep apnea) G47.33 9/5 cmH2O Pulmonary hypertension I27.20 RVSP 35 mmHg Allergic rhinitis J30.9 Asthma J45.909 Sinusitis J32.9 Acute back pain with sciatica M54.40 Vitamin D deficiency E55.9 Cardiac pacemaker in situ Z95.0 Syncope R55 Sick sinus syndrome I49.5 GERD (gastroesophageal reflux disease) K21.9 Bradycardia R00.1 SVT (supraventricular tachycardia) I47.1 Postnasal drip R09.82 Hemorrhoids K64.9 Osteoarthrosis M19.90 Hyperlipidemia E78.5 Overweight E66.3 Seasonal allergies J30.2 Chronic cough R05 Acute asthma exacerbation J45.901 Bronchitis J40 Shortness of breath R06.02 Surgical History Past Surgical History History of appendectomy Z90.49 S/P placement of cardiac pacemaker Z95.0 History of esophagogastroduodenoscopy (EGD) Z98.890 w/ or w/o brush/ wash History of colonoscopy Z98.890 w/ or w/o brsh spec 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 Significant Family History Family History Mother Heart disease Hypertension Myocardial infarction Father Heart disease Myocardial infarction Sister Diabetes Heart disease pacemaker Social History Smoking History Smoking Status: Never smoker Alcohol Use Alcohol Usage: Yes (very occasionally) Substance Abuse Hx Substance Use: No Occupation Occupation (List type of work in comments):: Retired Functioning ADL/IADL Current Ability Current Ability: Independent: Self-Care (e.g.,grooming, dressing, & bathing), Independent: Ambulation (rollator), Independent: Transfer and Independent: Household tasks (e.g., light meal prep, laundry, shopping) Pt Functioning Prior to Problem Prior Functioning: Self-Care (e.g.,grooming, dressing, & bathing): Independent, Ambulation: Independent, Transfer: Independent and Household tasks (e.g., light meal prep, laundry, shopping): Independent Social Environment Status Marital Status: Current Living Arrangements Living Environment:: Spouse Children How many children do you have?: 2 Do any of your children live nearby?: Yes Safety Do you feel safe in your surroundings?: Yes Assistance Do you need any assistance at home?: None at this time Review of Systems Review of Systems Review of Systems Respiratory: Reports Cough, SOB upon Exertion and Fatigue Pain Pain Location: neck and lower extremity (hip ) Pain Level: 2/10 (some days 0/10 just depends on the day) Risk Factor Assessment Vital Signs Pulse Rate: 60 Pulse Rhythm: Regular Respiratory Rate: 18 Pulse Ox: 98 Blood Pressure: 134/72 Diabetes Nutrition Referral for Diabetes: No Obesity Height: 5 ft 6 in Weight:: 245 lb Weight in Pounds: 245.0 lbs Weight Source: Stated by Patient Body Mass Index (BMI): 39.5 Nutritional Referral for Obesity: Yes Physical Activity Physical Inactivity: Recreational activity Risk Stratification Risk Guidelines: Lowest Risk: Risk Factor for Hypertension and Risk Factor for Depression and Moderate Risk: Risk Factor for Obesity and Risk Factor for Sedentary Lifestyle For Smoking Smoking Risk Guidelines For Dyslipidemia Dyslipidemia Risk Guidelines For Diabetes Mellitus Diabetes Risk Guidelines For Obesity/Overweight Obesity/Overweight Risk Guidelines For Hypertension Hypertension Risk Guidelines For Sedentary Lifestyle Sedentary Lifestyle Risk Guidelines For Depression Depression Risk Guidelines Motivation Motivation to Participate On a scale of 1 to 10, how prepared are you to commit to attending program?: 10 What do you see as barriers to successfully being able to complete the program?: None What do you see as the benefits of succesfully completing the program? In other words, what do you hope to get out of participating in the program?: Improve breathing and getting around Are there issues you are dealing with that will interfere with completing the program?: none Do you have a spouse or signficant other, family or friends who will help support you to complete the program?: Spouse
[2024-11-08 10:23] VITALS: BP 134/72; PULSE 60; RESP 18; O2SAT 98
--- NOTE | 2024-11-08 10:23 | PR.HP_ITS ---
History of Present Illness History of Present Pulmonary Event [facility] Breathless Scale: When is the patient short of breath? Y/N Grade: Description of Breathlessness: 0 I only get breathless with strenuous exercise. 1 I get short of breath when hurrying on level ground or walking up a slight hill. 2 On level ground, I walk slower than people of the same age because of breathless, or have to stop for breath when walking at my own pace. 3 I stop for breath after walking 100 yards or after a few minutes on level ground. 4 I am too breathless to leave the house or I am breathless when dressing. Medications Home Medications cholecalciferol (vitamin D3) 125 mcg (5,000 unit) capsule 5,000 unit PO DAILY 05/06/17 albuterol sulfate 90 mcg/actuation aerosol inhaler 1 - 2 puff inhalation Q4H PRN PRN shortness of breath or wheezing #1 device 08/31/17 acetaminophen 325 mg tablet (Tylenol) 650 mg (2 x 325 mg) PO Q6H PRN PRN Pain Score 1-10/Temp > 100.7 F #0 tabs 04/08/21 guaifenesin 1,200 mg tablet, extended release 12 hr (Mucus Relief ER) 1,200 mg PO .prn 10/15/21 lisinopril 2.5 mg tablet 2.5 mg PO DAILY 04/04/23 Oral Appliace #1 ea 07/28/23 rosuvastatin 5 mg tablet 5 mg PO QDAY 07/28/23 benzonatate 100 mg capsule 100 mg PO TID PRN 08/22/23 budesonide 160 mcg-glycopyr 9 mcg-formot 4.8 mcg/actuation HFA inhaler (Breztri Aerosphere) 2 inh inhalation BID #10.7 grams 09/09/23 fexofenadine 180 mg tablet (Lauren Allergy) 180 mg PO DAILY 09/09/23 montelukast 10 mg tablet 10 mg PO QDAY 09/09/23 ipratropium bromide 21 mcg (0.03 %) nasal spray 2 spray intranasal BID #30 mL 01/18/24 prednisone 20 mg tablet 40 mg (2 x 20 mg) PO DAILY wheezing 6 days #12 tabs 02/07/24 amoxicillin 875 mg-potassium clavulanate 125 mg tablet 1 tab PO BID #20 tabs 02/22/24 fluticasone propionate 93 mcg/actuation breath activated aerosol (Xhance) 2 spray intranasal BID #16 mL 03/01/24 Allergies Allergies thiopental (From Pentothal) Allergy (Intermediate, Verified 02/07/24 10:15) Other TONGUE NUMB grass pollen Allergy (Mild, Verified 02/07/24 10:15) Other - sneezing and congestion mold Allergy (Mild, Verified 02/07/24 10:15) Other - sneezing Iodine and Iodide Containing Produc Allergy (Verified 02/07/24 10:15) Low blood pressure Iodinated Contrast Media Adverse Reaction (Intermediate, Verified 02/07/24 10:15) Other HYPOTENSION Past Medical History Medical History Past Medical History (Updated 03/01/24 @ 15:28 by Bessy Estes CHIEF SERVICE DISPATCHER, CHIEF SERVICE DISPATCHER-C) Non-smoker Z78.9 CPAP (continuous positive airway pressure) dependence Z99.89 Hypertension I10 DVT (deep venous thrombosis) I82.409 Edema of both legs R60.0 Seasonal and perennial allergic rhinitis J30.89, J30.2 Multiple environmental allergies Z91.09 Pacemaker 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 Bronchiectasis J47.9 Chronic sinusitis J32.9 EVANS (dyspnea on exertion) R06.09 MONTRELL (obstructive sleep apnea) G47.33 9/5 cmH2O Pulmonary hypertension I27.20 RVSP 35 mmHg Allergic rhinitis J30.9 Asthma J45.909 Sinusitis J32.9 Acute back pain with sciatica M54.40 Vitamin D deficiency E55.9 Cardiac pacemaker in situ Z95.0 Syncope R55 Sick sinus syndrome I49.5 GERD (gastroesophageal reflux disease) K21.9 Bradycardia R00.1 SVT (supraventricular tachycardia) I47.1 Postnasal drip R09.82 Hemorrhoids K64.9 Osteoarthrosis M19.90 Hyperlipidemia E78.5 Overweight E66.3 Seasonal allergies J30.2 Chronic cough R05 Acute asthma exacerbation J45.901 Bronchitis J40 Shortness of breath R06.02 Surgical History Past Surgical History History of appendectomy Z90.49 S/P placement of cardiac pacemaker Z95.0 History of esophagogastroduodenoscopy (EGD) Z98.890 w/ or w/o brush/ wash History of colonoscopy Z98.890 w/ or w/o brsh spec 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 Significant Family History Family History Mother Heart disease Hypertension Myocardial infarction Father Heart disease Myocardial infarction Sister Diabetes Heart disease pacemaker Risk Factor Assessment For Smoking Smoking Risk Guidelines For Dyslipidemia Dyslipidemia Risk Guidelines For Diabetes Mellitus Diabetes Risk Guidelines For Obesity/Overweight Obesity/Overweight Risk Guidelines For Hypertension Hypertension Risk Guidelines For Sedentary Lifestyle Sedentary Lifestyle Risk Guidelines For Depression Depression Risk Guidelines Motivation Motivation to Participate On a scale of 1 to 10, how prepared are you to commit to attending program?: 10 What do you see as barriers to successfully being able to complete the program?: None What do you see as the benefits of succesfully completing the program? In other words, what do you hope to get out of participating in the program?: Improve breathing Are there issues you are dealing with that will interfere with completing the program?: None Do you have a spouse or signficant other, family or friends who will help support you to complete the program?: Spouse
[2024-11-08 10:40] VITALS: BMI 39.5
--- NOTE | 2024-11-08 10:49 | PCM.PR.TP ---
General Information2 General Information Admitting Diagnosis: Interstitial Lung Disease Personal Learning Style/Barriers Personal Learning Style:: Verbal and Written Barriers to Learning: None Stage of change r/t lifestyle modifications: Action Educational Classes KS: Breathing Retraining: Initial Assessment, Exercise: Initial Assessment, Energy Conservation: Initial Assessment, Medications: Initial Assessment, Preventing infection: Initial Assessment, Emotion Social Well Being: Initial Assessment, Sleep problems: Initial Assessment, Nutrition: Initial Assessment, Airway clearance: Initial Assessment and Oxygen therapy: Initial Assessment Education/Goals Individual Counseling: Initial Assessment: High Blood Pressure, Overweight/Obesity, Waist Circumference: <35 females <40 males and Sedentary Lifestyle [place] Patient Goals: Increase muscle strength: Initial Assessment, Experience less dyspnea: Initial Assessment, Improve energy level: Initial Assessment, Improve the ability to cope with ADLs: Initial Assessment, Improve knowledge of lung disease: Initial Assessment and Improve my quality of life: Initial Assessment Exercise - Initial Assessment Visit Date of Eval: 11/08/24 (initial evaluation) Problem/Goals Problems: Deconditioning, No regular exercise, Knowledge deficit exercise guidelines and Knowledge deficit exercise safety Goals:: KS: 2-3/wk for 18 weeks [36 sessions] Physician Prescribed Exercise Modalities: [employer] Stepper, [employer] Pro-II Ergometer and [employer] Lateral Cabin Service Agent Frequency (days/week): 3 Duration (Minutes):: 30-45 Intensity: 60-80% of age predicted maximum heart rate reserve METs - Progression 0.5-1.0 weekly:: 0.5 Current METSs:: 2 Target HR:: 89 Target RPE 12-16:: 12-16 Maximum Exercise HR:: 103 Minimum SpO2 with exercise: 98 Plan Plan and Plan to Review:: Benefits of exercise, Core components of exercise, How to measure dyspnea level, How to monitor dyspnea level, Exercise intensity, Exercise safety guideline, Home exercise guidelines and Alejandro: 3-4/11-13 Nutrition/Wt Mgmt - Initial Visit Date of Eval: 11/08/24 (initial evaluation) Problems/Goals Problems: Overweight Weight Management Knowledge Deficit Management of:: Overweight Admit Height:: 5 ft 6 in Admit Weight:: 245 lb Admit BMI:: 39.5 Intervention Referral to dietitian:: Yes Will attend diet classes:: Yes Intervention/Plan: Instruct on ideal BMI & set weight loss goal w/patient, Assist pt to ID & incorporate diet changes for weight loss by S9, Refer to Structured Weight Loss program as appropriate and Encourage goal of using 250-300dcal per session for weight loss Plan Nutrition Plan: Yes: Nutrition education class:, Yes: Medication education class [Prednisone]: and Yes: Weight control education class: Nutrition/Wt Mgmt - 30-Day Weight Management Height: 5 ft 6 in Weight:: 245 lb BMI: 39.5 Nutrition/Wt Mgmt - 60-Day Weight Management Height: 5 ft 6 in Weight:: 245 lb BMI: 39.5 Nutrition/Wt Mgmt - 90-Day Weight Management Height: 5 ft 6 in Weight:: 245 lb BMI: 39.5 Nutrition/Wt Mgmt - Final Weight Management Height: 5 ft 6 in Weight:: 245 lb BMI: 39.5 Psychosocial - Initial Assess Visit Date of Eval: 11/08/24 (initial evaluation) Problems/Goals History of Emotional Disorders: None Psychosocial Goals: 1. Patient is free from overwhelming symtoms of depression (or anxiety, 2. Identifies personal stressors & states the strategies for managing, 3. Identifies activities to decrease isolation and/or symptoms of, 4. Improved psychosocial coping skills., 5. Verbalizes coping strategies., 6. Adequate treatment of depression. and 7. Improved Q.O.L. Self-reported stressors: Medical/Health Psychosocial Test Tool Used:: Pulmonary QOL and PHQ-9 Questionnaire Referred to MD for counseling:: No Referral to Behavioral Health PS - Interventions: Yes: Attend Stress Management Classes Intervention/Plan: See List Interventions/Plan:: Assess stressors,coping strategies & signs of derpression on admission, Instruct/assist pt to develop coping & personal stress Mgt strategies, Refer to Behavioral Health if appropriate, Refer to Physician if appropriate and Instruct patient to recognize signs & symptoms of depression Psychosocial - 30-Day Problems/Goals History of Emotional Disorders: None Psychosocial Goals: 1. Patient is free from overwhelming symtoms of depression (or anxiety, 2. Identifies personal stressors & states the strategies for managing, 3. Identifies activities to decrease isolation and/or symptoms of, 4. Improved psychosocial coping skills., 5. Verbalizes coping strategies., 6. Adequate treatment of depression. and 7. Improved Q.O.L. Self-reported stressors: Medical/Health Psychosocial Test Tool Used:: Pulmonary QOL and PHQ-9 Questionnaire Referred to MD for counseling:: No Referral to Behavioral Health PS - Interventions: Yes: Attend Stress Management Classes Plan Interventions/Plan:: Assess stressors,coping strategies & signs of derpression on admission, Instruct/assist pt to develop coping & personal stress Mgt strategies, Refer to Behavioral Health if appropriate, Refer to Physician if appropriate and Instruct patient to recognize signs & symptoms of depression Psychosocial - 60-Day Problems/Goals History of Emotional Disorders: None Psychosocial Goals: 1. Patient is free from overwhelming symtoms of depression (or anxiety, 2. Identifies personal stressors & states the strategies for managing, 3. Identifies activities to decrease isolation and/or symptoms of, 4. Improved psychosocial coping skills., 5. Verbalizes coping strategies., 6. Adequate treatment of depression. and 7. Improved Q.O.L. Self-reported stressors: Medical/Health Psychosocial Test Tool Used:: Pulmonary QOL and PHQ-9 Questionnaire Referred to MD for counseling:: No Referral to Behavioral Health PS - Interventions: Yes: Attend Stress Management Classes Plan Interventions/Plan:: Assess stressors,coping strategies & signs of derpression on admission, Instruct/assist pt to develop coping & personal stress Mgt strategies, Refer to Behavioral Health if appropriate, Refer to Physician if appropriate and Instruct patient to recognize signs & symptoms of depression Psychosocial - 90-Day Problems/Goals History of Emotional Disorders: None Psychosocial Goals: 1. Patient is free from overwhelming symtoms of depression (or anxiety, 2. Identifies personal stressors & states the strategies for managing, 3. Identifies activities to decrease isolation and/or symptoms of, 4. Improved psychosocial coping skills., 5. Verbalizes coping strategies., 6. Adequate treatment of depression. and 7. Improved Q.O.L. Self-reported stressors: Medical/Health Psychosocial Test Tool Used:: Pulmonary QOL and PHQ-9 Questionnaire Referred to MD for counseling:: No Referral to Behavioral Health PS - Interventions: Yes: Attend Stress Management Classes Plan Interventions/Plan:: Assess stressors,coping strategies & signs of derpression on admission, Instruct/assist pt to develop coping & personal stress Mgt strategies, Refer to Behavioral Health if appropriate, Refer to Physician if appropriate and Instruct patient to recognize signs & symptoms of depression Psychosocial - Final Assess Problems/Goals History of Emotional Disorders: None Psychosocial Goals: 1. Patient is free from overwhelming symtoms of depression (or anxiety, 2. Identifies personal stressors & states the strategies for managing, 3. Identifies activities to decrease isolation and/or symptoms of, 4. Improved psychosocial coping skills., 5. Verbalizes coping strategies., 6. Adequate treatment of depression. and 7. Improved Q.O.L. Self-reported stressors: Medical/Health Psychosocial Test Tool Used:: Pulmonary QOL and PHQ-9 Questionnaire Referred to MD for counseling:: No Referral to Behavioral Health PS - Interventions: Yes: Attend Stress Management Classes Plan Interventions/Plan:: Assess stressors,coping strategies & signs of derpression on admission, Instruct/assist pt to develop coping & personal stress Mgt strategies, Refer to Behavioral Health if appropriate, Refer to Physician if appropriate and Instruct patient to recognize signs & symptoms of depression Oxygen & Oxygen Titration Init Visit Date of Eval: 11/08/24 (initial evaluation) Initial Assessment Oxygen on Admission: None SpO2:: 98 Patient Reports:: No cough, 0-1/yr respiratory infection and Hospitalized in the past 12 months [list how many times] (once) Goal Oxygen & Oxygen Tritration Goals: Effective hypoxemia control Plans Plan: Monitor SpO2 rest & with exercise Reviewed prescribed medications:: Purpose, Schedule, Side effects and Importance of compliance Instruct correct technique/timing & care:: MDI, DPI, Nebulizer and Return demo use of inhaler Bronchial Hygiene Plan: Role of exercise in secretion clearance, NS Nasal spray, Hydration, Hand hygiene, When to call MD, Influenza/Pneumovax vaccines and Cleaning of respiratory equipment Oxygen & Oxygen Titration 30D Reassessment SpO2:: 98 Oxygen & Oxygen Titration 60D Reassessment SpO2:: 98 Oxygen & Oxygen Titration 90D Reassessment SpO2:: 98 Oxygen & Oxygen Titration JUDD Reassessment SpO2:: 98 Core Components - Initial Visit Date of Eval: 11/08/24 (initial evaluation) Hypertension Hypertension Diagnosis:: Hypertension ICD-10 I10 (BP has been fluctuating since last hospital stay, recently taken off all BP meds due to sustained lower BPs) BP: 134/72 [employer] Hypertension Guidelines Outcomes/Goals: Able to verbalize/achieve optimal blood pressure <130/80 and Incorporates diet changes & exercise for blood pressure control by DC Tobacco - Initial Assessment Tobacco Program Goals Tobacco Use: Non-smoker Exacerbation Mgmt & Airway Clearance Patient Reports:: No cough, 0-1/yr respiratory infection and Hospitalized in the past 12 months [list how many times] (once) Plan: Monitor SpO2 rest & with manager endoscopy correct technique/timing & care:: MDI, DPI, Nebulizer and Return demo use of inhaler Bronchial Hygiene Plan: Role of exercise in secretion clearance, NS Nasal spray, Hydration, Hand hygiene, When to call MD, Influenza/Pneumovax vaccines and Cleaning of respiratory equipment Medication Interventions/plans: Instruct on medication effects & side effects, Review medication list w/patient every two weeks and Instruct importance of taking meds as ordered & assist problem solving Medication Goals: Adherence to prescribed medications and Correct technique/timing & care of MDI, DPI, nebulizer, and spacer. Does pt report taking home meds as prescribed?: Yes Medications: No: Spacer Reviewed prescribed medications:: Purpose, Schedule, Side effects and Importance of compliance Diabetes Diabetes:: No Referral to dietitian:: Yes Referral to Diabetic Clinic:: No Will attend diet classes:: Yes Core Components - 30 DAYS Hypertension Hypertension Diagnosis:: Hypertension ICD-10 I10 (BP has been fluctuating since last hospital stay, recently taken off all BP meds due to sustained lower BPs) Resting Blood Pressure:: 134/72 [employer] Hypertension Guidelines Outcomes/Goals: Able to verbalize/achieve optimal blood pressure <130/80 and Incorporates diet changes & exercise for blood pressure control by DC Tobacco - 30-Day Tobacco Program Goals Tobacco Use: Non-smoker Diabetes Diabetes:: No Core Components - 60 DAYS Hypertension Hypertension Diagnosis:: Hypertension ICD-10 I10 (BP has been fluctuating since last hospital stay, recently taken off all BP meds due to sustained lower BPs) Resting Blood Pressure:: 134/72 [employer] Hypertension Guidelines Outcomes/Goals: Able to verbalize/achieve optimal blood pressure <130/80 and Incorporates diet changes & exercise for blood pressure control by DC Tobacco - 60-Day Tobacco Program Goals Tobacco Use: Non-smoker Diabetes Diabetes:: No [employer]onents - 90 DAYS Hypertension Hypertension Diagnosis:: Hypertension ICD-10 I10 (BP has been fluctuating since last hospital stay, recently taken off all BP meds due to sustained lower BPs) Resting Blood Pressure:: 134/72 [employer] Hypertension Guidelines Outcomes/Goals: Able to verbalize/achieve optimal blood pressure <130/80 and Incorporates diet changes & exercise for blood pressure control by DC Tobacco - 90-Day Tobacco Program Goals Tobacco Use: Non-smoker Diabetes Diabetes:: No [employer] Comp[employer] - Final Hypertension Hypertension Diagnosis:: Hypertension ICD-10 I10 (BP has been fluctuating since last hospital stay, recently taken off all BP meds due to sustained lower BPs) Resting Blood Pressure:: 134/72 [employer] Hypertension Guidelines Outcomes/Goals: Able to verbalize/achieve optimal blood pressure <130/80 and Incorporates diet changes & exercise for blood pressure control by DC Tobacco - Final Tobacco Program Goals Tobacco Use: Non-smoker Diabetes Diabetes:: No Patient Health Questionnaire PHQ-9 Screening Initial Assessment: 1. Little interest or pleasure in doing things: Several days 2. Feeling down, depressed, or hopeless: Several days 3. Trouble falling or staying asleep, or sleeping too much: Several days 4. Feeling tired or having little energy: More than half the days 5. Poor appetite or overeating: Several days 6. Feeling bad about yourself -- or that you are a failure or have let yourself or your family down: More than half the days 7. Trouble concentrating on things, such as reading the newspaper or watching television: Not at all 8. Moving or speaking so slowly that other people could have noticed. Or the opposite - being so fidgety or restless that you have been moving around a lot more than usual: Nearly every day 9. Thoughts that you would be better off , or of hurting yourself in some way: Not at all How difficult have these problems made it for you to do your work, take care of things at home, or get along with other people?: Somewhat difficult Total Score: 11 Knowledge Questionaire (BCKQ) Information Information: [place] COPD Knowledge Questionnaire (BCKQ) This questionnaire is designed to find out what you know about your lung problem. It should be completed without help form anyone else. This usually takes between 10 and 20 minutes. Your answers will help us to find out what information you need to help you to understand and manage your lung condition. [place] which you think is the correct answer. COPD Assessment Test [CAT] Questions Never cough = 0, Cough all the time = 5: 3 No phlegm = 0, Chest full of phlegm = 5: 3 No chest tightness = 0, Chest very tight = 5: 2 No breathless w/exertion = 0, Very breathless w/exertion = 5: 5 No limitations w/activity = 0, Very limited w/activity = 5: 5 Confident leaving home = 0, Not at all confident = 5: 4 Sleep soundly = 0, Don't sleep soundly = 5: 3 Lots of energy = 0, No energy at all = 5: 5 Total CAT score:: 30 Self-Efficacy 6-Item Scale Initial Assessment: We would like to know how confident you are in doing certain activities. Please select your confidence level for: Fatigue Select Number: 5 Physical Discomfort or Pain Select Number: 9 Emotional Distress Select Number: 9 Other Symptoms or Health Problems Select Number: 10 Different Tasks and Activities Select Number: 6 Medication Select Number: 7 Total Score:: 7 Nutrition Survey Nutrition Survey Instructions Scoring Instructions Nutrition Survey Initial: Have you lost >10 lbs over the past 2 months without trying?: No Are you following a special diet at home for diabetes, low fat, or low salt?: No Are you interested in meeting with a dietitian for help understanding your diet?: No Do you eat less than 3 meals a day?: Yes Do you eat fatty meats ([place], sausage, ribs, etc), fried foods, desserts, large amounts of salad dressings, margarine, butter, or cheese most days?: Yes Do you have food allergies? [Enter types in comment field]: No Do you eat in restaurants more than 3 times a week?: No Do you season food with salt, seasoning salt, or garlic salt?: Yes Do you used canned, boxed, frozen meals, or soups, seasoning packets?: No Total Score:: 3
[2024-11-08 11:10] VITALS: BP 134/72; O2SAT 98; BMI 39.5
== END | disposition home or self-care (01) ==
PROVIDERS: PCP Family Medicine
DX: J44.89 Other specified chronic obstructive pulmonary disease (principal); J84.9 Interstitial pulmonary disease, unspecified; G47.33 Obstructive sleep apnea (adult) (pediatric)

== ENCOUNTER 2024-11-28 13:00 | Outpatient (RCR) | payer MEDICARE, OTHER, SELFPAY ==
[2024-11-08 11:10] VITALS: BMI 39.5
== END 2024-11-29 23:59 ==
LOC: PR 13:00
PROVIDERS: PCP Family Medicine
DX: J44.89 Other specified chronic obstructive pulmonary disease (principal); J84.9 Interstitial pulmonary disease, unspecified; G47.33 Obstructive sleep apnea (adult) (pediatric)
CPT/HCPCS: 97150; G0239

== ENCOUNTER 2024-12-28 13:00 | Outpatient (RCR) | payer MEDICARE, OTHER, SELFPAY ==
[2024-11-08 11:10] VITALS: BMI 39.5
--- NOTE | 2024-12-04 07:58 | PR.ITP_ITS ---
Exercise - Initial Assessment
--- NOTE | 2024-12-04 07:58 | PCM.PR.TP ---
Exercise - Initial Assessment Visit Session Number:: 9 Physician Prescribed Exercise Modalities: SciFit Stepper and SciFit Pro-II Ergometer Current METSs:: 2.2 Target HR:: 104 (83-104) Current RPD:: 2-3 Maximum Exercise HR:: 100 Resting Blood Pressure: 130/70 Maximum Exercise Blood Pressure: 140/70 Minimum SpO2 with exercise: 95 (room air) EKG Type: SR Nutrition/Wt Mgmt - Initial Visit Session Number:: 9 Weight Management Admit Height:: 5 ft 6 in Admit Weight:: 248 lb Admit BMI:: 40.0 Nutrition/Wt Mgmt - 30-Day Visit Date of Eval: 12/04/24 Session Number:: 9 Weight Management Height: 5 ft 6 in Weight:: 248 lb BMI: 40.0 Weight Goals Progress:: Progressing (Pt is scheduled to attend nutrition class. Low sodium heart healthy diet encouraged.) Nutrition/Wt Mgmt - 60-Day Visit Session Number:: 9 Weight Management Height: 5 ft 6 in Weight:: 248 lb BMI: 40.0 Nutrition/Wt Mgmt - 90-Day Visit Session Number:: 9 Weight Management Height: 5 ft 6 in Weight:: 248 lb BMI: 40.0 Nutrition/Wt Mgmt - Final Visit Session Number:: 9 Weight Management Height: 5 ft 6 in Weight:: 248 lb BMI: 40.0 Psychosocial - Initial Assess Visit Session Number:: 9 Problems/Goals History of Emotional Disorders: None Psychosocial Goals: 1. Patient is free from overwhelming symtoms of depression (or anxiety, 2. Identifies personal stressors & states the strategies for managing, 3. Identifies activities to decrease isolation and/or symptoms of, 4. Improved psychosocial coping skills., 5. Verbalizes coping strategies., 6. Adequate treatment of depression. and 7. Improved Q.O.L. Psychosocial Test Tool Used:: PHQ-9 Questionnaire PHQ-9 Score: 11 Referral to Behavioral Health PS - Interventions: Yes: Attend Stress Management Classes Intervention/Plan: See List Interventions/Plan:: Assess stressors,coping strategies & signs of derpression on admission, Instruct/assist pt to develop coping & personal stress Mgt strategies, Refer to Behavioral Health if appropriate, Refer to Physician if appropriate, Instruct patient to recognize signs & symptoms of depression and Instruct patient to recog Comments:: Pt denies any psychosocial issues at this time. Pt will be attending stress management class. Psychosocial - 30-Day Visit Date of Eval: 12/04/24 Session Number:: 9 Problems/Goals History of Emotional Disorders: None Psychosocial Goals: 1. Patient is free from overwhelming symtoms of depression (or anxiety, 2. Identifies personal stressors & states the strategies for managing, 3. Identifies activities to decrease isolation and/or symptoms of, 4. Improved psychosocial coping skills., 5. Verbalizes coping strategies., 6. Adequate treatment of depression. and 7. Improved Q.O.L. Psychosocial Test Tool Used:: PHQ-9 Questionnaire PHQ-9 Score: 11 Referral to Behavioral Health PS - Interventions: Yes: Attend Stress Management Classes Plan Interventions/Plan:: Assess stressors,coping strategies & signs of derpression on admission, Instruct/assist pt to develop coping & personal stress Mgt strategies, Refer to Behavioral Health if appropriate, Refer to Physician if appropriate, Instruct patient to recognize signs & symptoms of depression and Instruct patient to recog Comments:: Pt denies any psychosocial issues at this time. Pt will be attending stress management class. Psychosocial - 60-Day Visit Session Number:: 9 Problems/Goals History of Emotional Disorders: None Psychosocial Goals: 1. Patient is free from overwhelming symtoms of depression (or anxiety, 2. Identifies personal stressors & states the strategies for managing, 3. Identifies activities to decrease isolation and/or symptoms of, 4. Improved psychosocial coping skills., 5. Verbalizes coping strategies., 6. Adequate treatment of depression. and 7. Improved Q.O.L. Psychosocial Test Tool Used:: PHQ-9 Questionnaire PHQ-9 Score: 11 Referral to Behavioral Health PS - Interventions: Yes: Attend Stress Management Classes Plan Interventions/Plan:: Assess stressors,coping strategies & signs of derpression on admission, Instruct/assist pt to develop coping & personal stress Mgt strategies, Refer to Behavioral Health if appropriate, Refer to Physician if appropriate, Instruct patient to recognize signs & symptoms of depression and Instruct patient to recog Comments:: Pt denies any psychosocial issues at this time. Pt will be attending stress management class. Psychosocial - -Day Visit Session Number:: 9 Problems/Goals History of Emotional Disorders: None Psychosocial Goals: 1. Patient is free from overwhelming symtoms of depression (or anxiety, 2. Identifies personal stressors & states the strategies for managing, 3. Identifies activities to decrease isolation and/or symptoms of, 4. Improved psychosocial coping skills., 5. Verbalizes coping strategies., 6. Adequate treatment of depression. and 7. Improved Q.O.L. Psychosocial Test Tool Used:: PHQ-9 Questionnaire PHQ-9 Score: 11 Referral to Behavioral Health PS - Interventions: Yes: Attend Stress Management Classes Plan Interventions/Plan:: Assess stressors,coping strategies & signs of derpression on admission, Instruct/assist pt to develop coping & personal stress Mgt strategies, Refer to Behavioral Health if appropriate, Refer to Physician if appropriate, Instruct patient to recognize signs & symptoms of depression and Instruct patient to recog Comments:: Pt denies any psychosocial issues at this time. Pt will be attending stress management class. Psychosocial - Final Assess Visit Session Number:: 9 Problems/Goals History of Emotional Disorders: None Psychosocial Goals: 1. Patient is free from overwhelming symtoms of depression (or anxiety, 2. Identifies personal stressors & states the strategies for managing, 3. Identifies activities to decrease isolation and/or symptoms of, 4. Improved psychosocial coping skills., 5. Verbalizes coping strategies., 6. Adequate treatment of depression. and 7. Improved Q.O.L. Psychosocial Test Tool Used:: PHQ-9 Questionnaire PHQ-9 Score: 11 Referral to Behavioral Health PS - Interventions: Yes: Attend Stress Management Classes Plan Interventions/Plan:: Assess stressors,coping strategies & signs of derpression on admission, Instruct/assist pt to develop coping & personal stress Mgt strategies, Refer to Behavioral Health if appropriate, Refer to Physician if appropriate, Instruct patient to recognize signs & symptoms of depression and Instruct patient to recog Comments:: Pt denies any psychosocial issues at this time. Pt will be attending stress management class. Oxygen & Oxygen Titration Init Visit Session Number:: 9 Initial Assessment SpO2:: 95 (room air) Oxygen & Oxygen Titration 30D Visit Date of Eval: 12/04/24 Session Number:: 9 Reassessment Reassessment- 30 Days: Demonstrate knowledge of O2 Rx at rest & w/exercise Breath Sounds:: Clear SpO2:: 95 (room air) Oxygen & Oxygen Titration 60D Visit Date of Eval: 12/04/24 Session Number:: 9 Reassessment Breath Sounds:: Clear SpO2:: 95 (room air) Oxygen & Oxygen Titration 90D Visit Date of Eval: 12/04/24 Session Number:: 9 Reassessment Breath Sounds:: Clear SpO2:: 95 (room air) Oxygen & Oxygen Titration JUDD Visit Date of Eval: 12/04/24 Session Number:: 9 Reassessment Breath Sounds:: Clear SpO2:: 95 (room air) Core Components - Initial Visit Session Number:: 9 Hypertension Hypertension Diagnosis:: Hypertension ICD-10 I10 BP: 130/70 [place] [employer] Hypertension Guidelines Blood Pressure: 140/70 Outcomes/Goals: Able to verbalize/achieve optimal blood pressure <130/80 and Incorporates diet changes & exercise for blood pressure control by DC Tobacco - Initial Assessment Tobacco Program Goals Tobacco Use: Non-smoker Gave Education Materials For:: Tobacco Triggers, Pulmonary Disease, Risk Factors, Breathing Techniques, Medical Compliance, Pulmonary A&P, Exacerbation Signs & Symptoms and Stress & Relaxation Diabetes Diabetes:: No Core Components - 30 DAYS Visit Date of Eval: 12/04/24 Session Number:: 9 Hypertension Hypertension Diagnosis:: Hypertension ICD-10 I10 Resting Blood Pressure:: 130/70 [place] [employer] Hypertension Guidelines Peak Exercise Blood Pressure:: 140/70 Outcomes/Goals: Able to verbalize/achieve optimal blood pressure <130/80 and Incorporates diet changes & exercise for blood pressure control by DC Interventions/plan: Instruct on optimal blood pressure, hypertension & medications, Instruct on effects of sodium, alcohol, stress, exercise &hypertension and Other additional plan/interventions 30 day Reassessments:: Progressing Reassessment Notes & Comments:: Pt's BP's are slightly elevated on most days. Will continue to monitor and report to pt's physician if necessary. Tobacco - 30-Day Tobacco Program Goals Tobacco Use: Non-smoker Gave Education Materials For:: Tobacco Triggers, Pulmonary Disease, Risk Factors, Breathing Techniques, Medical Compliance, Pulmonary A&P, Exacerbation Signs & Symptoms and Stress & Relaxation 30-day Reassessments:: Progressing Reassessment Notes & Comments:: Pt attending education. Exacerbation Mgmt & Airway Clearance Reassessment: Demonstrates knowledge of O2 Rx at rest and Demonstrates knowledge of O2 Rx with exercise Bronchial Hygiene Plan: Yes: Pt demonstrates correctly for effective cough, Yes: Pt demo correct for CPT, Yes: Pt demo correct for device, Yes: Pt demo correct for NS nasal spray, Yes: Pt demo correct for sputum management, Yes: Pt demo correct for improved hydration, Yes: Pt demo correct for hand hygiene, Yes: Pt demo correct for evalute sputum, Yes: Pt demo correct for verbalize when to call MD and Yes: Pt demo correct for cleaning of respiratory equipment Medication Medication list reviewed:: Yes Taking medications 100% of the time:: Met (Pt taking meds as prescribed) Medication reassessment: Yes: Pt demonstrates correct technique timing for MDI, Yes: Pt demonstrates correct technique timing for DPI, Yes: Pt demonstrates correct technique timing for NEB and Yes: Pt demonstrates correct technique timing for spacer Diabetes Diabetes:: No Core Components - 60 DAYS Visit Session Number:: 9 Hypertension Hypertension Diagnosis:: Hypertension ICD-10 I10 Resting Blood Pressure:: 130/70 [place] [employer] Hypertension Guidelines Peak Exercise Blood Pressure:: 140/70 Outcomes/Goals: Able to verbalize/achieve optimal blood pressure <130/80 and Incorporates diet changes & exercise for blood pressure control by DC Interventions/plan: Instruct on optimal blood pressure, hypertension & medications, Instruct on effects of sodium, alcohol, stress, exercise &hypertension and Other additional plan/interventions 60 day Reassessments:: Progressing Reassessment Notes & Comments:: Pt's BP's are slightly elevated on most days. Will continue to monitor and report to pt's physician if necessary. Tobacco - 60-Day Tobacco Program Goals Tobacco Use: Non-smoker Gave Education Materials For:: Tobacco Triggers, Pulmonary Disease, Risk Factors, Breathing Techniques, Medical Compliance, Pulmonary A&P, Exacerbation Signs & Symptoms and Stress & Relaxation 60-day Reassessments:: Progressing Reassessment Notes & Comments:: Pt attending education. Exacerbation Mgmt & Airway Clearance Reassessment: Demonstrates knowledge of O2 Rx at rest and Demonstrates knowledge of O2 Rx with exercise Bronchial Hygiene Plan: Yes: Pt demonstrates correctly for effective cough, Yes: Pt demo correct for CPT, Yes: Pt demo correct for device, Yes: Pt demo correct for NS nasal spray, Yes: Pt demo correct for sputum management, Yes: Pt demo correct for improved hydration, Yes: Pt demo correct for hand hygiene, Yes: Pt demo correct for evalute sputum, Yes: Pt demo correct for verbalize when to call MD and Yes: Pt demo correct for cleaning of respiratory equipment Medication Taking medications 100% of the time:: Met (Pt taking meds as prescribed) Medication reassessment: Yes: Pt demonstrates correct technique timing for MDI, Yes: Pt demonstrates correct technique timing for DPI, Yes: Pt demonstrates correct technique timing for NEB and Yes: Pt demonstrates correct technique timing for spacer Diabetes Diabetes:: No Core Components - 90 DAYS Visit Session Number:: 9 Hypertension Hypertension Diagnosis:: Hypertension ICD-10 I10 Resting Blood Pressure:: 130/70 [place] [employer] Hypertension Guidelines Peak Exercise Blood Pressure:: 140/70 Outcomes/Goals: Able to verbalize/achieve optimal blood pressure <130/80 and Incorporates diet changes & exercise for blood pressure control by DC Interventions/plan: Instruct on optimal blood pressure, hypertension & medications, Instruct on effects of sodium, alcohol, stress, exercise &hypertension and Other additional plan/interventions 90 day Reassessments:: Progressing Reassessment Notes & Comments:: Pt's BP's are slightly elevated on most days. Will continue to monitor and report to pt's physician if necessary. Tobacco - 90-Day Tobacco Program Goals Tobacco Use: Non-smoker Gave Education Materials For:: Tobacco Triggers, Pulmonary Disease, Risk Factors, Breathing Techniques, Medical Compliance, Pulmonary A&P, Exacerbation Signs & Symptoms and Stress & Relaxation 90-day Reassessments:: Progressing Reassessment Notes & Comments:: Pt attending education. Exacerbation Mgmt & Airway Clearance Bronchial Hygiene Plan: Yes: Pt demonstrates correctly for effective cough, Yes: Pt demo correct for CPT, Yes: Pt demo correct for device, Yes: Pt demo correct for NS nasal spray, Yes: Pt demo correct for sputum management, Yes: Pt demo correct for improved hydration, Yes: Pt demo correct for hand hygiene, Yes: Pt demo correct for evalute sputum, Yes: Pt demo correct for verbalize when to call MD and Yes: Pt demo correct for cleaning of respiratory equipment Medication Medication reassessment: Yes: Pt demonstrates correct technique timing for MDI, Yes: Pt demonstrates correct technique timing for DPI, Yes: Pt demonstrates correct technique timing for NEB and Yes: Pt demonstrates correct technique timing for spacer Diabetes Diabetes:: No Core Components - Final Visit Session Number:: 9 Hypertension Hypertension Diagnosis:: Hypertension ICD-10 I10 Resting Blood Pressure:: 130/70 [place] [employer] Hypertension Guidelines Peak Exercise Blood Pressure:: 140/70 Outcomes/Goals: Able to verbalize/achieve optimal blood pressure <130/80 and Incorporates diet changes & exercise for blood pressure control by DC Tobacco - Final Tobacco Program Goals Tobacco Use: Non-smoker Exacerbation Mgmt & Airway Clearance Bronchial Hygiene Plan: Yes: Pt demonstrates correctly for effective cough, Yes: Pt demo correct for CPT, Yes: Pt demo correct for device, Yes: Pt demo correct for NS nasal spray, Yes: Pt demo correct for sputum management, Yes: Pt demo correct for improved hydration, Yes: Pt demo correct for hand hygiene, Yes: Pt demo correct for evalute sputum, Yes: Pt demo correct for verbalize when to call MD and Yes: Pt demo correct for cleaning of respiratory equipment Medication Medication reassessment: Yes: Pt demonstrates correct technique timing for MDI, Yes: Pt demonstrates correct technique timing for DPI, Yes: Pt demonstrates correct technique timing for NEB and Yes: Pt demonstrates correct technique timing for spacer Diabetes Diabetes:: No Patient Health Questionnaire PHQ-9 Screening 30-Day Re-eval Assessment: 1. Little interest or pleasure in doing things: Several days 2. Feeling down, depressed, or hopeless: Several days 3. Trouble falling or staying asleep, or sleeping too much: Several days 4. Feeling tired or having little energy: More than half the days 5. Poor appetite or overeating: Several days 6. Feeling bad about yourself -- or that you are a failure or have let yourself or your family down: More than half the days 7. Trouble concentrating on things, such as reading the newspaper or watching television: Not at all 8. Moving or speaking so slowly that other people could have noticed. Or the opposite - being so fidgety or restless that you have been moving around a lot more than usual: Nearly every day 9. Thoughts that you would be better off , or of hurting yourself in some way: Not at all Total Score: 11 Knowledge Questionaire (BCKQ) Information Information: [place] COPD Knowledge Questionnaire (BCKQ) This questionnaire is designed to find out what you know about your lung problem. It should be completed without help form anyone else. This usually takes between 10 and 20 minutes. Your answers will help us to find out what information you need to help you to understand and manage your lung condition. [employer] which you think is the correct answer. Self-Efficacy 6-Item Scale 30-Day Re-eval Assessment: We would like to know how confident you are in doing certain activities. Please select your confidence level for: Fatigue Select Number: 5 Physical Discomfort or Pain Select Number: 9 Emotional Distress Select Number: 9 Other Symptoms or Health Problems Select Number: 10 Different Tasks and Activities Select Number: 6 Medication Select Number: 7 Total Score:: 7 Nutrition Survey Nutrition Survey Instructions Scoring Instructions
[2024-12-04 08:09] VITALS: BP 130/70; BP 140/70; O2SAT 95; BMI 40.0
== END 2024-12-30 23:59 ==
LOC: PR 13:00
PROVIDERS: PCP Family Medicine
DX: J44.89 Other specified chronic obstructive pulmonary disease (principal); J84.9 Interstitial pulmonary disease, unspecified; G47.33 Obstructive sleep apnea (adult) (pediatric)
CPT/HCPCS: 94667; 97150; G0239

== ENCOUNTER 2025-01-28 13:00 | Outpatient (RCR) | payer MEDICARE, OTHER, SELFPAY ==
[2024-12-04 08:09] VITALS: BMI 40.0
--- NOTE | 2025-01-01 11:00 | PCM.CR.ITP ---
Exercise - Initial Assessment Physician Prescribed Exercise Modalities: SciFit Stepper, SciFit Pro-II Ergometer and SciFit Lateral Radial Drill Press Operator Nutrition - Initial Assessment Weight Mgt (Other Care) Height: 5 ft 6 in Weight:: 248 lb BMI: 40.0 Psychosocial - Initial Assess Target Goals Target Goals Nutrition Survey Nutrition Survey Instructions Scoring Instructions Exercise - 30-day Assessment Physician Prescribed Exercise Modalities: SciFit Stepper, SciFit Pro-II Ergometer and SciFit Lateral [place] Exercise - 60-day Assessment Visit Date of Eval: 01/01/25 Session #:: 20 Physician Prescribed Exercise Modalities: SciFit Stepper, SciFit Pro-II Ergometer and SciFit Lateral [place] Frequency: 3x/week for 12 weeks [36 sessions] Intensity: 60-80% of age predicted maximum heart rate reserve Duration: 30 - 45 minutes METs - Progression 0.5-1.0 weekly:: 0.5-1.0 Current METSs:: 3 Target Heart Rate:: 83-104 Target RPE 11-14 Current RPE:: 11-14 Current RPE:: 12 Maximum Excercise HR:: 106 Resting Blood Pressure: 146/70 Maximum Exercise Blood Pressure: 146/74 EKG Type: atrial paced with occ pvcs Current Physical Activity or Exercising minutes: 30-45 Outcomes & Goals Goals:: Verbalizes understanding of THR, RPE & goal METS by session 6, Documents in home exercise log/reports 30 min aerobic 5 day/wk by DC and Demonstrates accurate pulse taking by DC Intervention & Plan Exercise Program Goals: Instruct on personal THR & RPE, Instruct on MET level & personal MET goal, Show patient to take own pulse /validate performance until accurate and Instruct on home exercise 30-day Reassessments 30 day Reassessments:: Met Physical Activity Home Exercise Physical Activity - Home Exercise: Safe Exercise, Warm-up, Self-monitoring, Cool-Down, Home Exercise > 30 min Daily and Sitting Time <3 hours/daily Outcomes & Goals Outcomes/Goals: Demonstrates correct Warm-up/exercise Cool-Down (S3) if = 2.5 METs, Verbalizes symptoms of exercise intolerance by Session 3 (S3) and Demonstrate safe equipment use (S3) & follows exercise prescrition (6) Intervention & Plan Plan/Intervention: Instruct warm-up & cool-down if exercising at > 2 METs, Instruct on symptoms of exercise intolerance & actions to take, Instruct & monitor on saf and Assess intial functional capacity & safety risk 30-day Reassessments 30 day Reassessments:: Progressing Reassessment Notes & Comments:: Pt properly warms up and cools down with minimal prompting, pt instructed on actions to take if exercise tolerance occurs. Exercise - 90-day Assessment Physician Prescribed Exercise Modalities: SciFit Stepper, SciFit Pro-II Ergometer and SciFit Lateral Radial Drill Press Operator Exercise - Final/Discharge Physician Prescribed Exercise Modalities: SciFit Stepper, SciFit Pro-II Ergometer and SciFit Lateral [place] Nutrition - 30-Day Assessment Weight Mgt (Other Care) Height: 5 ft 6 in Weight:: 248 lb BMI: 40.0 Nutrition - 60-Day Assessment Diabetes (Other Core Measures) Diabetes Type: Not Applicable Weight Mgt (Other Care) Height: 5 ft 6 in Weight:: 248 lb BMI: 40.0 Diagnosis Overweight/Obesity BMI> 30% ICD-10 E66: Yes Diagnosis High BMI/Morbid Obesity BMI> 35% ICD-10 Z68: Yes Outcomes/Goals: Pt sets, maintains & shows weight loss goal & trend during rehab Intervention/Plan: Instruct on ideal BMI & set weight loss goal w/patient, Assist pt to ID & incorporate diet changes for weight loss by S9, Refer to Structured Weight Loss program as appropriate and Encourage goal of using 250-300dcal per session for weight loss 30 day Reassessments:: Progressing Reassessment Notes & Comments:: Pt monitoring weight weekly in rehab, to encouraged to incorporate diet and lifestyle changes to promote weight loss. Healthy Eating Habits Will attend diet classes:: Yes Outcomes/Goals:: Consume diet rich in vegs,fruits,whole grain/high fiber,fish,lean meat Intervention/Plan:: Assess current eating habits and Other Additional plan/interventions 30-day Reassessments:: Progressing Reassessment Notes & Comments:: Pt to attend diet classes while in rehab. Education Gave educational materials for:: Signs & symptoms of hypoglycemia, Signs & symptoms of hyperglycemia, Relate diabetes to coronary artery disease and Healthy eating Core - 60-Day Assessment Visit Date of Eval: 01/01/25 Session #:: 20 Medication Compliance Preventative Medication(s):: Statin/lipid H/O mental health issues: depression, anxiety, or addiction?: No Doesn?t believe in the benefits of treatment?: No Believes medications are unnecessary or harmful?: No Psychosocial - 30-Day Assess Target Goals Target Goals Psychosocial - 60-Day Assess Target Goals Target Goals Psychosocial - 90-Day Assess Target Goals Target Goals Psychosocial - Final Assessmen Target Goals Target Goals Nutrition - 90-Day Assessment Weight Mgt (Other Care) Height: 5 ft 6 in Weight:: 248 lb BMI: 40.0 Nutrition - Final Assessment Weight Mgt (Other Care) Height: 5 ft 6 in Weight:: 248 lb BMI: 40.0
--- NOTE | 2025-01-01 11:07 | PCM.PR.TP ---
Exercise - Initial Assessment Visit Session Number:: 20 Physician Prescribed Exercise Modalities: [employer] Stepper, [employer] Pro-II Ergometer and [employer] Lateral Director Account Management Target HR:: 104 Target RPE 12-16:: 12 Current RPD:: 12 Maximum Exercise HR:: 106 Resting Blood Pressure: 146/70 Maximum Exercise Blood Pressure: 146/74 Minimum SpO2 with exercise: 93 (room air) EKG Type: atrial paced with occ pvcs Nutrition/Wt Mgmt - Initial Visit Session Number:: 20 Weight Management Admit Height:: 5 ft 6 in Admit Weight:: 248 lb Admit BMI:: 40.0 Nutrition/Wt Mgmt - 30-Day Visit Date of Eval: 01/01/25 Session Number:: 20 Weight Management Height: 5 ft 6 in Weight:: 248 lb BMI: 40.0 Nutrition/Wt Mgmt - 60-Day Visit Date of Eval: 01/01/25 Session Number:: 20 Weight Management Weight Assessment:: WC <35 female Height: 5 ft 6 in Weight:: 248 lb BMI: 40.0 Weight Goals Progress:: Progressing Nutrition/Wt Mgmt - 90-Day Visit Session Number:: 20 Weight Management Weight Assessment:: WC <35 female Height: 5 ft 6 in Weight:: 248 lb BMI: 40.0 Weight Goals Progress:: Progressing Nutrition/Wt Mgmt - Final Visit Session Number:: 20 Weight Management Height: 5 ft 6 in Weight:: 248 lb BMI: 40.0 Psychosocial - Initial Assess Visit Session Number:: 20 Problems/Goals History of Emotional Disorders: None Psychosocial Goals: 1. Patient is free from overwhelming symtoms of depression (or anxiety, 2. Identifies personal stressors & states the strategies for managing, 3. Identifies activities to decrease isolation and/or symptoms of, 4. Improved psychosocial coping skills., 5. Verbalizes coping strategies., 6. Adequate treatment of depression. and 7. Improved Q.O.L. Psychosocial Test Tool Used:: PHQ-9 Questionnaire PHQ-9 Score: 11 Referral to Behavioral Health PS - Interventions: Yes: Attend Stress Management Classes Intervention/Plan: See List Interventions/Plan:: Assess stressors,coping strategies & signs of derpression on admission, Instruct/assist pt to develop coping & personal stress Mgt strategies, Refer to Behavioral Health if appropriate, Refer to Physician if appropriate and Instruct patient to recognize signs & symptoms of depression Comments:: Pt denies any psychosocial needs at this time. Pt will be attending stress management class. Psychosocial - 30-Day Visit Date of Eval: 01/01/25 Session Number:: 20 Problems/Goals History of Emotional Disorders: None Psychosocial Goals: 1. Patient is free from overwhelming symtoms of depression (or anxiety, 2. Identifies personal stressors & states the strategies for managing, 3. Identifies activities to decrease isolation and/or symptoms of, 4. Improved psychosocial coping skills., 5. Verbalizes coping strategies., 6. Adequate treatment of depression. and 7. Improved Q.O.L. Psychosocial Test Tool Used:: PHQ-9 Questionnaire PHQ-9 Score: 11 Referral to Behavioral [facility] PS - Interventions: Yes: Attend Stress Management Classes Plan Interventions/Plan:: Assess stressors,coping strategies & signs of derpression on admission, Instruct/assist pt to develop coping & personal stress Mgt strategies, Refer to Behavioral Health if appropriate, Refer to Physician if appropriate and Instruct patient to recognize signs & symptoms of depression Comments:: Pt denies any psychosocial needs at this time. Pt will be attending stress management class. Psychosocial - 60-Day Visit Date of Eval: 01/01/25 Session Number:: 20 Problems/Goals History of Emotional Disorders: None Psychosocial Goals: 1. Patient is free from overwhelming symtoms of depression (or anxiety, 2. Identifies personal stressors & states the strategies for managing, 3. Identifies activities to decrease isolation and/or symptoms of, 4. Improved psychosocial coping skills., 5. Verbalizes coping strategies., 6. Adequate treatment of depression. and 7. Improved Q.O.L. Psychosocial Test Tool Used:: PHQ-9 Questionnaire PHQ-9 Score: 11 Referral to Behavioral Health PS - Interventions: Yes: Attend Stress Management Classes Plan Interventions/Plan:: Assess stressors,coping strategies & signs of derpression on admission, Instruct/assist pt to develop coping & personal stress Mgt strategies, Refer to Behavioral Health if appropriate, Refer to Physician if appropriate and Instruct patient to recognize signs & symptoms of depression Comments:: Pt denies any psychosocial needs at this time. Pt will be attending stress management class. Psychosocial - -Day Visit Session Number:: 20 Problems/Goals History of Emotional Disorders: None Psychosocial Goals: 1. Patient is free from overwhelming symtoms of depression (or anxiety, 2. Identifies personal stressors & states the strategies for managing, 3. Identifies activities to decrease isolation and/or symptoms of, 4. Improved psychosocial coping skills., 5. Verbalizes coping strategies., 6. Adequate treatment of depression. and 7. Improved Q.O.L. Psychosocial Test Tool Used:: PHQ-9 Questionnaire PHQ-9 Score: 11 Referral to Behavioral Health PS - Interventions: Yes: Attend Stress Management Classes Plan Interventions/Plan:: Assess stressors,coping strategies & signs of derpression on admission, Instruct/assist pt to develop coping & personal stress Mgt strategies, Refer to Behavioral Health if appropriate, Refer to Physician if appropriate and Instruct patient to recognize signs & symptoms of depression Comments:: Pt denies any psychosocial needs at this time. Pt will be attending stress management class. Psychosocial - Final Assess Visit Session Number:: 20 Problems/Goals History of Emotional Disorders: None Psychosocial Goals: 1. Patient is free from overwhelming symtoms of depression (or anxiety, 2. Identifies personal stressors & states the strategies for managing, 3. Identifies activities to decrease isolation and/or symptoms of, 4. Improved psychosocial coping skills., 5. Verbalizes coping strategies., 6. Adequate treatment of depression. and 7. Improved Q.O.L. Psychosocial Test Tool Used:: PHQ-9 Questionnaire PHQ-9 Score: 11 Referral to Behavioral Health PS - Interventions: Yes: Attend Stress Management Classes Plan Interventions/Plan:: Assess stressors,coping strategies & signs of derpression on admission, Instruct/assist pt to develop coping & personal stress Mgt strategies, Refer to Behavioral Health if appropriate, Refer to Physician if appropriate and Instruct patient to recognize signs & symptoms of depression Comments:: Pt denies any psychosocial needs at this time. Pt will be attending stress management class. Oxygen & Oxygen Titration Init Visit Session Number:: 20 Initial Assessment SpO2:: 93 (room air) Oxygen & Oxygen Titration 30D Visit Date of Eval: 01/01/25 Session Number:: 20 Reassessment SpO2:: 93 (room air) Oxygen & Oxygen Titration 60D Visit Date of Eval: 01/01/25 Session Number:: 20 Reassessment Reassessment- 60 Days: Demonstrate knowledge of O2 Rx at rest & w/exercise SpO2:: 93 (room air) Oxygen & Oxygen Titration 90D Visit Date of Eval: 01/01/25 Session Number:: 20 Reassessment SpO2:: 93 (room air) Oxygen & Oxygen Titration JUDD Visit Date of Eval: 01/01/25 Session Number:: 20 Reassessment SpO2:: 93 (room air) [employer] - Initial Visit Session Number:: 20 Hypertension Hypertension Diagnosis:: Hypertension ICD-10 I10 BP: 146/70 [place] [employer] Hypertension Guidelines Blood Pressure: 146/74 Outcomes/Goals: Able to verbalize/achieve optimal blood pressure <130/80 and Incorporates diet changes & exercise for blood pressure control by DC Tobacco - Initial Assessment Tobacco Program Goals Tobacco Use: Non-smoker Gave Education Materials For:: Tobacco Triggers, Pulmonary Disease, Risk Factors, Breathing Techniques, Medical Compliance, Pulmonary A&P, Exacerbation Signs & Symptoms and Stress & Relaxation Diabetes Diabetes:: No [employer] - 30 DAYS Visit Date of Eval: 01/01/25 Session Number:: 20 Hypertension Hypertension Diagnosis:: Hypertension ICD-10 I10 Resting Blood Pressure:: 146/70 [place] [employer] Hypertension Guidelines Peak Exercise Blood Pressure:: 146/74 Outcomes/Goals: Able to verbalize/achieve optimal blood pressure <130/80 and Incorporates diet changes & exercise for blood pressure control by DC Interventions/plan: Instruct on optimal blood pressure, hypertension & medications and Instruct on effects of sodium, alcohol, stress, exercise &hypertension 30 day Reassessments:: Progressing Reassessment Notes & Comments:: Pt taking medications as prescribed, pt encouraged to make dietary and lifestyle changes to support optimal BP of <130/80 Tobacco - 30-Day Tobacco Program Goals Tobacco Use: Non-smoker Gave Education Materials For:: Tobacco Triggers, Pulmonary Disease, Risk Factors, Breathing Techniques, Medical Compliance, Pulmonary A&P, Exacerbation Signs & Symptoms and Stress & Relaxation 30-day Reassessments:: Met Exacerbation Mgmt & Airway Clearance Reassessment: Demonstrates knowledge of O2 Rx at rest and Demonstrates knowledge of O2 Rx with exercise Bronchial Hygiene Plan: Yes: Pt demonstrates correctly for effective cough, Yes: Pt demo correct for CPT, Yes: Pt demo correct for device, Yes: Pt demo correct for NS nasal spray, Yes: Pt demo correct for sputum management, Yes: Pt demo correct for improved hydration, Yes: Pt demo correct for hand hygiene, Yes: Pt demo correct for evalute sputum, Yes: Pt demo correct for verbalize when to call MD and Yes: Pt demo correct for cleaning of respiratory equipment Medication Taking medications 100% of the time:: Met Medication reassessment: Yes: Pt demonstrates correct technique timing for MDI, Yes: Pt demonstrates correct technique timing for DPI, Yes: Pt demonstrates correct technique timing for NEB and Yes: Pt demonstrates correct technique timing for spacer Diabetes Diabetes:: No [employer] - 60 DAYS Visit Date of Eval: 01/01/25 Session Number:: 20 Hypertension Hypertension Diagnosis:: Hypertension ICD-10 I10 Resting Blood Pressure:: 146/70 [place] [employer] Hypertension Guidelines Peak Exercise Blood Pressure:: 146/74 Outcomes/Goals: Able to verbalize/achieve optimal blood pressure <130/80 and Incorporates diet changes & exercise for blood pressure control by DC Interventions/plan: Instruct on optimal blood pressure, hypertension & medications and Instruct on effects of sodium, alcohol, stress, exercise &hypertension 60 day Reassessments:: Progressing Reassessment Notes & Comments:: Pt taking medications as prescribed, pt encouraged to make dietary and lifestyle changes to support optimal BP of <130/80 Tobacco - 60-Day Tobacco Program Goals Tobacco Use: Non-smoker Gave Education Materials For:: Tobacco Triggers, Pulmonary Disease, Risk Factors, Breathing Techniques, Medical Compliance, Pulmonary A&P, Exacerbation Signs & Symptoms and Stress & Relaxation 60-day Reassessments:: Met Exacerbation Mgmt & Airway Clearance Reassessment: Demonstrates knowledge of O2 Rx at rest and Demonstrates knowledge of O2 Rx with exercise Bronchial Hygiene Plan: Yes: Pt demonstrates correctly for effective cough, Yes: Pt demo correct for CPT, Yes: Pt demo correct for device, Yes: Pt demo correct for NS nasal spray, Yes: Pt demo correct for sputum management, Yes: Pt demo correct for improved hydration, Yes: Pt demo correct for hand hygiene, Yes: Pt demo correct for evalute sputum, Yes: Pt demo correct for verbalize when to call MD and Yes: Pt demo correct for cleaning of respiratory equipment Medication Taking medications 100% of the time:: Met Taking medications 100% of the time:: Met Medication reassessment: Yes: Pt demonstrates correct technique timing for MDI, Yes: Pt demonstrates correct technique timing for DPI, Yes: Pt demonstrates correct technique timing for NEB and Yes: Pt demonstrates correct technique timing for spacer 60-day Reassessments:: Met Diabetes Diabetes:: No [employer] - 90 DAYS Visit Session Number:: 20 Hypertension Hypertension Diagnosis:: Hypertension ICD-10 I10 Resting Blood Pressure:: 146/70 [place] [employer] Hypertension Guidelines Peak Exercise Blood Pressure:: 146/74 Outcomes/Goals: Able to verbalize/achieve optimal blood pressure <130/80 and Incorporates diet changes & exercise for blood pressure control by DC Interventions/plan: Instruct on optimal blood pressure, hypertension & medications and Instruct on effects of sodium, alcohol, stress, exercise &hypertension 90 day Reassessments:: Progressing Reassessment Notes & Comments:: Pt taking medications as prescribed, pt encouraged to make dietary and lifestyle changes to support optimal BP of <130/80 Tobacco - 90-Day Tobacco Program Goals Tobacco Use: Non-smoker Gave Education Materials For:: Tobacco Triggers, Pulmonary Disease, Risk Factors, Breathing Techniques, Medical Compliance, Pulmonary A&P, Exacerbation Signs & Symptoms and Stress & Relaxation 90-day Reassessments:: Met Exacerbation Mgmt & Airway Clearance Bronchial Hygiene Plan: Yes: Pt demonstrates correctly for effective cough, Yes: Pt demo correct for CPT, Yes: Pt demo correct for device, Yes: Pt demo correct for NS nasal spray, Yes: Pt demo correct for sputum management, Yes: Pt demo correct for improved hydration, Yes: Pt demo correct for hand hygiene, Yes: Pt demo correct for evalute sputum, Yes: Pt demo correct for verbalize when to call MD and Yes: Pt demo correct for cleaning of respiratory equipment Medication Medication reassessment: Yes: Pt demonstrates correct technique timing for MDI, Yes: Pt demonstrates correct technique timing for DPI, Yes: Pt demonstrates correct technique timing for NEB and Yes: Pt demonstrates correct technique timing for spacer Diabetes Diabetes:: No [employer] Comp[employer] - Final Visit Session Number:: 20 Hypertension Hypertension Diagnosis:: Hypertension ICD-10 I10 Resting Blood Pressure:: 146/70 [place] [employer] Hypertension Guidelines Peak Exercise Blood Pressure:: 146/74 Outcomes/Goals: Able to verbalize/achieve optimal blood pressure <130/80 and Incorporates diet changes & exercise for blood pressure control by DC Tobacco - Final Tobacco Program Goals Tobacco Use: Non-smoker Exacerbation Mgmt & Airway Clearance Bronchial Hygiene Plan: Yes: Pt demonstrates correctly for effective cough, Yes: Pt demo correct for CPT, Yes: Pt demo correct for device, Yes: Pt demo correct for NS nasal spray, Yes: Pt demo correct for sputum management, Yes: Pt demo correct for improved hydration, Yes: Pt demo correct for hand hygiene, Yes: Pt demo correct for evalute sputum, Yes: Pt demo correct for verbalize when to call MD and Yes: Pt demo correct for cleaning of respiratory equipment Medication Medication reassessment: Yes: Pt demonstrates correct technique timing for MDI, Yes: Pt demonstrates correct technique timing for DPI, Yes: Pt demonstrates correct technique timing for NEB and Yes: Pt demonstrates correct technique timing for spacer Diabetes Diabetes:: No Patient Health Questionnaire PHQ-9 Screening 60-Day Re-eval Assessment: 1. Little interest or pleasure in doing things: Several days 2. Feeling down, depressed, or hopeless: Several days 3. Trouble falling or staying asleep, or sleeping too much: Several days 4. Feeling tired or having little energy: More than half the days 5. Poor appetite or overeating: Several days 6. Feeling bad about yourself -- or that you are a failure or have let yourself or your family down: More than half the days 7. Trouble concentrating on things, such as reading the newspaper or watching television: Not at all 8. Moving or speaking so slowly that other people could have noticed. Or the opposite - being so fidgety or restless that you have been moving around a lot more than usual: Nearly every day 9. Thoughts that you would be better off , or of hurting yourself in some way: Not at all Total Score: 11 Knowledge Questionaire (BCKQ) Information Information: [place] COPD Knowledge Questionnaire (BCKQ) This questionnaire is designed to find out what you know about your lung problem. It should be completed without help form anyone else. This usually takes between 10 and 20 minutes. Your answers will help us to find out what information you need to help you to understand and manage your lung condition. Daniel the [email or web address] which you think is the correct answer. Self-Efficacy 6-Item Scale 60-Day Re-eval Assessment: We would like to know how confident you are in doing certain activities. Please select your confidence level for: Fatigue Select Number: 5 Physical Discomfort or Pain Select Number: 9 Emotional Distress Select Number: 9 Other Symptoms or Health Problems Select Number: 10 Different Tasks and Activities Select Number: 6 Medication Select Number: 7 Total Score:: 7 Nutrition Survey Nutrition Survey Instructions Scoring Instructions Nutrition Survey Discharge: Have you lost >10 lbs over the past 2 months without trying?: No Are you following a special diet at home for diabetes, low fat, or low salt?: No Are you interested in meeting with a dietitiisabel for help understanding your diet?: No Do you eat less than 3 meals a day?: Yes Do you eat fatty meats ([place], sausage, ribs, etc), fried foods, desserts, large amounts of salad dressings, margarine, butter, or cheese most days?: Yes Do you have food allergies? [Enter types in comment field]: No Do you eat in restaurants more than 3 times a week?: No Do you season food with salt, seasoning salt, or garlic salt?: Yes Do you used canned, boxed, frozen meals, or soups, seasoning packets?: No Total Score:: 3
[2025-01-01 11:15] VITALS: BP 146/70; BP 146/74; O2SAT 93; BMI 40.0
--- NOTE | 2025-02-11 11:00 | PCM.PR.TP ---
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 Current METSs:: 4 Resting Blood Pressure: 150/62 Maximum Exercise Blood Pressure: 170/80 Minimum SpO2 with exercise: 97 EKG Type: Atrial paced with prolong AV conduction with rare PVCs Nutrition/Wt Mgmt - Initial Visit Session Number:: 36 Weight Management Admit Height:: 5 ft 6 in Admit Weight:: 247 lb Admit BMI:: 39.9 Nutrition/Wt Mgmt - 30-Day Visit Date of Eval: 02/11/25 Session Number:: 36 Weight Management Height: 5 ft 6 in Weight:: 247 lb BMI: 39.9 Nutrition/Wt Mgmt - 60-Day Visit Session Number:: 36 Weight Management Height: 5 ft 6 in Weight:: 247 lb BMI: 39.9 Nutrition/Wt Mgmt - 90-Day Visit Session Number:: 36 Weight Management Height: 5 ft 6 in Weight:: 247 lb BMI: 39.9 Nutrition/Wt Mgmt - Final Visit Date of Eval: 02/11/25 (Nutrition survey score 3) Session Number:: 36 Weight Management Height: 5 ft 6 in Weight:: 247 lb BMI: 39.9 Weight Goals Progress:: Progressing Psychosocial - Initial Assess Visit Session Number:: 36 Problems/Goals History of Emotional Disorders: None Psychosocial Goals: 1. Patient is free from overwhelming symtoms of depression (or anxiety, 2. Identifies personal stressors & states the strategies for managing, 3. Identifies activities to decrease isolation and/or symptoms of, 4. Improved psychosocial coping skills., 5. Verbalizes coping strategies., 6. Adequate treatment of depression. and 7. Improved Q.O.L. Psychosocial Test Tool Used:: PHQ-9 Questionnaire PHQ-9 Score: 11 Referral to Behavioral Health PS - Interventions: Yes: Attend Stress Management Classes Intervention/Plan: See List Interventions/Plan:: Assess stressors,coping strategies & signs of derpression on admission, Instruct/assist pt to develop coping & personal stress Mgt strategies, Refer to Behavioral Health if appropriate, Refer to Physician if appropriate and Instruct patient to recognize signs & symptoms of depression Comments:: Pt attended stress management classes. Pt denies any psychosocial issues at this time, pt provided with mental health community resources if she should need in the future. Psychosocial - 30-Day Visit Date of Eval: 02/11/25 Session Number:: 36 Problems/Goals History of Emotional Disorders: None Psychosocial Goals: 1. Patient is free from overwhelming symtoms of depression (or anxiety, 2. Identifies personal stressors & states the strategies for managing, 3. Identifies activities to decrease isolation and/or symptoms of, 4. Improved psychosocial coping skills., 5. Verbalizes coping strategies., 6. Adequate treatment of depression. and 7. Improved Q.O.L. Psychosocial Test Tool Used:: PHQ-9 Questionnaire PHQ-9 Score: 11 Referral to Behavioral Health PS - Interventions: Yes: Attend Stress Management Classes Plan Interventions/Plan:: Assess stressors,coping strategies & signs of derpression on admission, Instruct/assist pt to develop coping & personal stress Mgt strategies, Refer to Behavioral Health if appropriate, Refer to Physician if appropriate and Instruct patient to recognize signs & symptoms of depression Comments:: Pt attended stress management classes. Pt denies any psychosocial issues at this time, pt provided with mental health community resources if she should need in the future. Psychosocial - 60-Day Visit Session Number:: 36 Problems/Goals History of Emotional Disorders: None Psychosocial Goals: 1. Patient is free from overwhelming symtoms of depression (or anxiety, 2. Identifies personal stressors & states the strategies for managing, 3. Identifies activities to decrease isolation and/or symptoms of, 4. Improved psychosocial coping skills., 5. Verbalizes coping strategies., 6. Adequate treatment of depression. and 7. Improved Q.O.L. Psychosocial Test Tool Used:: PHQ-9 Questionnaire PHQ-9 Score: 11 Referral to Behavioral Health PS - Interventions: Yes: Attend Stress Management Classes Plan Interventions/Plan:: Assess stressors,coping strategies & signs of derpression on admission, Instruct/assist pt to develop coping & personal stress Mgt strategies, Refer to Behavioral Health if appropriate, Refer to Physician if appropriate and Instruct patient to recognize signs & symptoms of depression Comments:: Pt attended stress management classes. Pt denies any psychosocial issues at this time, pt provided with mental health community resources if she should need in the future. Psychosocial - -Day Visit Session Number:: 36 Problems/Goals History of Emotional Disorders: None Psychosocial Goals: 1. Patient is free from overwhelming symtoms of depression (or anxiety, 2. Identifies personal stressors & states the strategies for managing, 3. Identifies activities to decrease isolation and/or symptoms of, 4. Improved psychosocial coping skills., 5. Verbalizes coping strategies., 6. Adequate treatment of depression. and 7. Improved Q.O.L. Psychosocial Test Tool Used:: PHQ-9 Questionnaire PHQ-9 Score: 11 Referral to Behavioral Health PS - Interventions: Yes: Attend Stress Management Classes Plan Interventions/Plan:: Assess stressors,coping strategies & signs of derpression on admission, Instruct/assist pt to develop coping & personal stress Mgt strategies, Refer to Behavioral Health if appropriate, Refer to Physician if appropriate and Instruct patient to recognize signs & symptoms of depression Comments:: Pt attended stress management classes. Pt denies any psychosocial issues at this time, pt provided with mental health community resources if she should need in the future. Psychosocial - Final Assess Visit Date of Eval: 02/11/25 (Nutrition survey score 3) Session Number:: 36 Problems/Goals History of Emotional Disorders: None Psychosocial Goals: 1. Patient is free from overwhelming symtoms of depression (or anxiety, 2. Identifies personal stressors & states the strategies for managing, 3. Identifies activities to decrease isolation and/or symptoms of, 4. Improved psychosocial coping skills., 5. Verbalizes coping strategies., 6. Adequate treatment of depression. and 7. Improved Q.O.L. Psychosocial Test Tool Used:: PHQ-9 Questionnaire PHQ-9 Score: 11 Referral to Behavioral Health PS - Interventions: Yes: Attend Stress Management Classes Plan Interventions/Plan:: Assess stressors,coping strategies & signs of derpression on admission, Instruct/assist pt to develop coping & personal stress Mgt strategies, Refer to Behavioral Health if appropriate, Refer to Physician if appropriate and Instruct patient to recognize signs & symptoms of depression Comments:: Pt attended stress management classes. Pt denies any psychosocial issues at this time, pt provided with mental health community resources if she should need in the future. Oxygen & Oxygen Titration Init Visit Session Number:: 36 Initial Assessment SpO2:: 97 Oxygen & Oxygen Titration 30D Visit Date of Eval: 02/11/25 Session Number:: 36 Reassessment SpO2:: 97 Oxygen & Oxygen Titration 60D Visit Date of Eval: 02/11/25 Session Number:: 36 Reassessment SpO2:: 97 Oxygen & Oxygen Titration 90D Visit Date of Eval: 02/11/25 Session Number:: 36 Reassessment SpO2:: 97 Oxygen & Oxygen Titration JUDD Visit Date of Eval: 02/11/25 Session Number:: 36 Reassessment Oxygen & Oxygen Titration Final: None SpO2:: 97 Core Components - Initial Visit Session Number:: 36 Hypertension BP: 150/62 [employer] Hypertension Guidelines Blood Pressure: 170/80 Outcomes/Goals: Able to verbalize/achieve optimal blood pressure <130/80 and Incorporates diet changes & exercise for blood pressure control by DC Comment: Pt able to verbalize optimal BP <130/80, pt educated on importance of low sodium diet and active lifestyle to help achieve optimal BP. Tobacco - Initial Assessment Tobacco Program Goals Tobacco Use: Non-smoker Diabetes Diabetes:: No Core Components - 30 DAYS Visit Date of Eval: 02/11/25 Session Number:: 36 Hypertension Resting Blood Pressure:: 150/62 [employer] Hypertension Guidelines Peak Exercise Blood Pressure:: 170/80 Outcomes/Goals: Able to verbalize/achieve optimal blood pressure <130/80 and Incorporates diet changes & exercise for blood pressure control by DC Comment: Pt able to verbalize optimal BP <130/80, pt educated on importance of low sodium diet and active lifestyle to help achieve optimal BP. Tobacco - 30-Day Tobacco Program Goals Tobacco Use: Non-smoker Exacerbation Mgmt & Airway Clearance Bronchial Hygiene Plan: Yes: Pt demonstrates correctly for effective cough, Yes: Pt demo correct for CPT, Yes: Pt demo correct for device, Yes: Pt demo correct for NS nasal spray, Yes: Pt demo correct for sputum management, Yes: Pt demo correct for improved hydration, Yes: Pt demo correct for hand hygiene, Yes: Pt demo correct for evalute sputum, Yes: Pt demo correct for verbalize when to call MD and Yes: Pt demo correct for cleaning of respiratory equipment Medication Medication reassessment: Yes: Pt demonstrates correct technique timing for MDI, Yes: Pt demonstrates correct technique timing for DPI, Yes: Pt demonstrates correct technique timing for NEB and Yes: Pt demonstrates correct technique timing for spacer Diabetes Diabetes:: No [employer] Components - 60 DAYS Visit Session Number:: 36 Hypertension Resting Blood Pressure:: 150/62 [employer] Hypertension Guidelines Peak Exercise Blood Pressure:: 170/80 Outcomes/Goals: Able to verbalize/achieve optimal blood pressure <130/80 and Incorporates diet changes & exercise for blood pressure control by DC Comment: Pt able to verbalize optimal BP <130/80, pt educated on importance of low sodium diet and active lifestyle to help achieve optimal BP. Tobacco - 60-Day Tobacco Program Goals Tobacco Use: Non-smoker Exacerbation Mgmt & Airway Clearance Bronchial Hygiene Plan: Yes: Pt demonstrates correctly for effective cough, Yes: Pt demo correct for CPT, Yes: Pt demo correct for device, Yes: Pt demo correct for NS nasal spray, Yes: Pt demo correct for sputum management, Yes: Pt demo correct for improved hydration, Yes: Pt demo correct for hand hygiene, Yes: Pt demo correct for evalute sputum, Yes: Pt demo correct for verbalize when to call MD and Yes: Pt demo correct for cleaning of respiratory equipment Medication Medication reassessment: Yes: Pt demonstrates correct technique timing for MDI, Yes: Pt demonstrates correct technique timing for DPI, Yes: Pt demonstrates correct technique timing for NEB and Yes: Pt demonstrates correct technique timing for spacer Diabetes Diabetes:: No [employer] Components - 90 DAYS Visit Session Number:: 36 Hypertension Resting Blood Pressure:: 150/62 [employer] Hypertension Guidelines Peak Exercise Blood Pressure:: 170/80 Outcomes/Goals: Able to verbalize/achieve optimal blood pressure <130/80 and Incorporates diet changes & exercise for blood pressure control by DC Comment: Pt able to verbalize optimal BP <130/80, pt educated on importance of low sodium diet and active lifestyle to help achieve optimal BP. Tobacco - 90-Day Tobacco Program Goals Tobacco Use: Non-smoker Exacerbation Mgmt & Airway Clearance Bronchial Hygiene Plan: Yes: Pt demonstrates correctly for effective cough, Yes: Pt demo correct for CPT, Yes: Pt demo correct for device, Yes: Pt demo correct for NS nasal spray, Yes: Pt demo correct for sputum management, Yes: Pt demo correct for improved hydration, Yes: Pt demo correct for hand hygiene, Yes: Pt demo correct for evalute sputum, Yes: Pt demo correct for verbalize when to call MD and Yes: Pt demo correct for cleaning of respiratory equipment Medication Medication reassessment: Yes: Pt demonstrates correct technique timing for MDI, Yes: Pt demonstrates correct technique timing for DPI, Yes: Pt demonstrates correct technique timing for NEB and Yes: Pt demonstrates correct technique timing for spacer Diabetes Diabetes:: No Core Components - Final Visit Date of Eval: 02/11/25 (Nutrition survey score 3) Session Number:: 36 Hypertension Resting Blood Pressure:: 150/62 [employer] Hypertension Guidelines Peak Exercise Blood Pressure:: 170/80 Outcomes/Goals: Able to verbalize/achieve optimal blood pressure <130/80 and Incorporates diet changes & exercise for blood pressure control by DC Comment: Pt able to verbalize optimal BP <130/80, pt educated on importance of low sodium diet and active lifestyle to help achieve optimal BP. Tobacco - Final Tobacco Program Goals Tobacco Use: Non-smoker Exacerbation Mgmt & Airway Clearance Final Assessment: Demonstrates knowledge of O2 Rx at rest, Demonstrates knowledge of O2 Rx with exercise and Using O2 as prescribed Bronchial Hygiene Plan: Yes: Pt demonstrates correctly for effective cough, Yes: Pt demo correct for CPT, Yes: Pt demo correct for device, Yes: Pt demo correct for NS nasal spray, Yes: Pt demo correct for sputum management, Yes: Pt demo correct for improved hydration, Yes: Pt demo correct for hand hygiene, Yes: Pt demo correct for evalute sputum, Yes: Pt demo correct for verbalize when to call MD and Yes: Pt demo correct for cleaning of respiratory equipment Medication Taking medications 100% of the time:: Met Medication reassessment: Yes: Pt demonstrates correct technique timing for MDI, Yes: Pt demonstrates correct technique timing for DPI, Yes: Pt demonstrates correct technique timing for NEB and Yes: Pt demonstrates correct technique timing for spacer Diabetes Diabetes:: No Knowledge Questionaire (BCKQ) Information Information: [place] COPD Knowledge Questionnaire (BCKQ) This questionnaire is designed to find out what you know about your lung problem. It should be completed without help form anyone else. This usually takes between 10 and 20 minutes. Your answers will help us to find out what information you need to help you to understand and manage your lung condition. [place] which you think is the correct answer.
[2025-02-11 11:04] VITALS: BP 150/62; O2SAT 97
[2025-02-11 11:11] VITALS: BP 150/62; BP 170/80; BMI 39.9
== END 2025-01-29 23:59 ==
LOC: PR 13:00
PROVIDERS: PCP Family Medicine
DX: J44.89 Other specified chronic obstructive pulmonary disease (principal); J84.9 Interstitial pulmonary disease, unspecified; G47.33 Obstructive sleep apnea (adult) (pediatric)
CPT/HCPCS: 97150; G0239

== ENCOUNTER 2025-02-06 13:00 | Outpatient (RCR) | payer MEDICARE, OTHER, SELFPAY ==
[2025-01-01 11:15] VITALS: BMI 40.0
--- NOTE | 2025-01-31 09:06 | PR.ITP_ITS ---
Exercise - Initial Assessment Visit Session Number:: 33 Physician Prescribed Exercise Modalities: [place] Stepper, [place] Level [place] Pro-II Ergometer and [place] Level [place] Lateral Head Cleaning Porter Current METSs:: 2.9 Target HR:: 110 (83-110) Current RPD:: 2 Maximum Exercise HR:: 120 Resting Blood Pressure: 132/60 Maximum Exercise Blood Pressure: 162/70 Minimum SpO2 with exercise: 98 (room air) EKG Type: Atrial paced w/ prolonged AV conduction and rare PVC Nutrition/Wt Mgmt - Initial Visit Session Number:: 33 Weight Management Admit Height:: 5 ft 6 in Admit Weight:: 247 lb Admit BMI:: 39.9 Nutrition/Wt Mgmt - 30-Day Visit Date of Eval: 01/31/25 Session Number:: 33 Weight Management Height: 5 ft 6 in Weight:: 247 lb BMI: 39.9 Nutrition/Wt Mgmt - 60-Day Visit Session Number:: 33 Weight Management Height: 5 ft 6 in Weight:: 247 lb BMI: 39.9 Weight Goals Progress:: Progressing (Pt has attended nutrition class. Heart healthy low sodium diet encouraged. Weight loss encouraged.) Nutrition/Wt Mgmt - 90-Day Visit Date of Eval: 01/31/25 Session Number:: 33 Weight Management Height: 5 ft 6 in Weight:: 247 lb BMI: 39.9 Weight Goals Progress:: Progressing (Pt has attended nutrition class. Heart healthy low sodium diet encouraged. Weight loss encouraged.) Nutrition/Wt Mgmt - Final Visit Session Number:: 33 Weight Management Height: 5 ft 6 in Weight:: 247 lb BMI: 39.9 Psychosocial - Initial Assess Visit Session Number:: 33 Problems/Goals History of Emotional Disorders: None Psychosocial Goals: 1. Patient is free from overwhelming symtoms of depression (or anxiety, 2. Identifies personal stressors & states the strategies for managing, 3. Identifies activities to decrease isolation and/or symptoms of, 4. Improved psychosocial coping skills., 5. Verbalizes coping strategies., 6. Adequate treatment of depression. and 7. Improved Q.O.L. Psychosocial Test Tool Used:: PHQ-9 Questionnaire PHQ-9 Score: 11 Referred to MD for counseling:: No Referral to Behavioral Health PS - Interventions: Yes: Attend Stress Management Classes Intervention/Plan: See List Interventions/Plan:: Assess stressors,coping strategies & signs of derpression on admission, Instruct/assist pt to develop coping & personal stress Mgt strategies, Refer to Behavioral Health if appropriate, Refer to Physician if appropriate, Instruct patient to recognize signs & symptoms of depression and Instruct patient to recog Comments:: Pt denies any psychosocial issues at this time. Pt to attend stress management class. Will reassess every 30 days. Psychosocial - 30-Day Visit Date of Eval: 01/31/25 Session Number:: 33 Problems/Goals History of Emotional Disorders: None Psychosocial Goals: 1. Patient is free from overwhelming symtoms of depression (or anxiety, 2. Identifies personal stressors & states the strategies for managing, 3. Identifies activities to decrease isolation and/or symptoms of, 4. Improved psychosocial coping skills., 5. Verbalizes coping strategies., 6. Adequate treatment of depression. and 7. Improved Q.O.L. Psychosocial Test Tool Used:: PHQ-9 Questionnaire PHQ-9 Score: 11 Referred to MD for counseling:: No Referral to Behavioral Health PS - Interventions: Yes: Attend Stress Management Classes Plan Interventions/Plan:: Assess stressors,coping strategies & signs of derpression on admission, Instruct/assist pt to develop coping & personal stress Mgt strategies, Refer to Behavioral Health if appropriate, Refer to Physician if appropriate, Instruct patient to recognize signs & symptoms of depression and Instruct patient to recog Comments:: Pt denies any psychosocial issues at this time. Pt to attend stress management class. Will reassess every 30 days. Psychosocial - 60-Day Visit Session Number:: 33 Problems/Goals History of Emotional Disorders: None Psychosocial Goals: 1. Patient is free from overwhelming symtoms of depression (or anxiety, 2. Identifies personal stressors & states the strategies for managing, 3. Identifies activities to decrease isolation and/or symptoms of, 4. Improved psychosocial coping skills., 5. Verbalizes coping strategies., 6. Adequate treatment of depression. and 7. Improved Q.O.L. Psychosocial Test Tool Used:: PHQ-9 Questionnaire PHQ-9 Score: 11 Referred to MD for counseling:: No Referral to Behavioral Health PS - Interventions: Yes: Attend Stress Management Classes Plan Interventions/Plan:: Assess stressors,coping strategies & signs of derpression on admission, Instruct/assist pt to develop coping & personal stress Mgt strategies, Refer to Behavioral Health if appropriate, Refer to Physician if appropriate, Instruct patient to recognize signs & symptoms of depression and Instruct patient to recog Comments:: Pt denies any psychosocial issues at this time. Pt to attend stress management class. Will reassess every 30 days. Psychosocial - 90-Day Visit Date of Eval: 01/31/25 Session Number:: 33 Problems/Goals History of Emotional Disorders: None Psychosocial Goals: 1. Patient is free from overwhelming symtoms of depression (or anxiety, 2. Identifies personal stressors & states the strategies for managing, 3. Identifies activities to decrease isolation and/or symptoms of, 4. Improved psychosocial coping skills., 5. Verbalizes coping strategies., 6. Adequate treatment of depression. and 7. Improved Q.O.L. Psychosocial Test Tool Used:: PHQ-9 Questionnaire PHQ-9 Score: 11 Referred to MD for counseling:: No Referral to Behavioral Health PS - Interventions: Yes: Attend Stress Management Classes Plan Interventions/Plan:: Assess stressors,coping strategies & signs of derpression on admission, Instruct/assist pt to develop coping & personal stress Mgt strategies, Refer to Behavioral Health if appropriate, Refer to Physician if appropriate, Instruct patient to recognize signs & symptoms of depression and Instruct patient to recog Comments:: Pt denies any psychosocial issues at this time. Pt to attend stress management class. Will reassess every 30 days. Psychosocial - Final Assess Visit Session Number:: 33 Problems/Goals History of Emotional Disorders: None Psychosocial Goals: 1. Patient is free from overwhelming symtoms of depression (or anxiety, 2. Identifies personal stressors & states the strategies for managing, 3. Identifies activities to decrease isolation and/or symptoms of, 4. Improved psychosocial coping skills., 5. Verbalizes coping strategies., 6. Adequate treatment of depression. and 7. Improved Q.O.L. Psychosocial Test Tool Used:: PHQ-9 Questionnaire PHQ-9 Score: 11 Referred to MD for counseling:: No Referral to Behavioral Health PS - Interventions: Yes: Attend Stress Management Classes Plan Interventions/Plan:: Assess stressors,coping strategies & signs of derpression on admission, Instruct/assist pt to develop coping & personal stress Mgt strategies, Refer to Behavioral Health if appropriate, Refer to Physician if appropriate, Instruct patient to recognize signs & symptoms of depression and Instruct patient to recog Comments:: Pt denies any psychosocial issues at this time. Pt to attend stress management class. Will reassess every 30 days. Oxygen & Oxygen Titration Init Visit Session Number:: 33 Initial Assessment SpO2:: 98 (room air) Oxygen & Oxygen Titration 30D Visit Date of Eval: 01/31/25 Session Number:: 33 Reassessment Breath Sounds:: Clear SpO2:: 98 (room air) Oxygen & Oxygen Titration 60D Visit Date of Eval: 01/31/25 Session Number:: 33 Reassessment Breath Sounds:: Clear SpO2:: 98 (room air) Oxygen & Oxygen Titration 90D Visit Date of Eval: 01/31/25 Session Number:: 33 Reassessment Oxygen & Oxygen Titration 90 days: None Breath Sounds:: Clear SpO2:: 98 (room air) Oxygen & Oxygen Titration JUDD Visit Date of Eval: 01/31/25 Session Number:: 33 Reassessment Breath Sounds:: Clear SpO2:: 98 (room air) Core Components - Initial Visit Session Number:: 33 Hypertension BP: 132/60 [employer] Hypertension Guidelines Blood Pressure: 162/70 Outcomes/Goals: Able to verbalize/achieve optimal blood pressure <130/80 and Incorporates diet changes & exercise for blood pressure control by DC Tobacco - Initial Assessment Tobacco Program Goals Tobacco Use: Non-smoker Gave Education Materials For:: Tobacco Triggers, Pulmonary Disease, Risk Factors, Breathing Techniques, Medical Compliance, Pulmonary A&P, Exacerbation Signs & Symptoms and Stress & Relaxation Diabetes Diabetes:: No Core Components - 30 DAYS Visit Date of Eval: 01/31/25 Session Number:: 33 Hypertension Resting Blood Pressure:: 132/60 [employer] Hypertension Guidelines Peak Exercise Blood Pressure:: 162/70 Outcomes/Goals: Able to verbalize/achieve optimal blood pressure <130/80 and Incorporates diet changes & exercise for blood pressure control by DC Interventions/plan: Instruct on optimal blood pressure, hypertension & medications and Instruct on effects of sodium, alcohol, stress, exercise &hypertension 30 day Reassessments:: Progressing Reassessment Notes & Comments:: Pt's BP's are within AHA normal limits on some days. Weight loss and a low sodium heart healthy diet encouraged. Will continue to monitor and report to pt's physician if necessary. Tobacco - 30-Day Tobacco Program Goals Tobacco Use: Non-smoker Gave Education Materials For:: Tobacco Triggers, Pulmonary Disease, Risk Factors, Breathing Techniques, Medical Compliance, Pulmonary A&P, Exacerbation Signs & Symptoms and Stress & Relaxation Exacerbation Mgmt & Airway Clearance Bronchial Hygiene Plan: Yes: Pt demonstrates correctly for effective cough, Yes: Pt demo correct for CPT, Yes: Pt demo correct for device, Yes: Pt demo correct for NS nasal spray, Yes: Pt demo correct for sputum management, Yes: Pt demo correct for improved hydration, Yes: Pt demo correct for hand hygiene, Yes: Pt demo correct for evalute sputum, Yes: Pt demo correct for verbalize when to call MD and Yes: Pt demo correct for cleaning of respiratory equipment Medication Medication reassessment: Yes: Pt demonstrates correct technique timing for MDI, Yes: Pt demonstrates correct technique timing for DPI, Yes: Pt demonstrates correct technique timing for NEB and Yes: Pt demonstrates correct technique timing for spacer Diabetes Diabetes:: No [employer] Components - 60 DAYS Visit Session Number:: 33 Hypertension Resting Blood Pressure:: 132/60 [employer] Hypertension Guidelines Peak Exercise Blood Pressure:: 162/70 Outcomes/Goals: Able to verbalize/achieve optimal blood pressure <130/80 and Incorporates diet changes & exercise for blood pressure control by DC Interventions/plan: Instruct on optimal blood pressure, hypertension & med ications and Instruct on effects of sodium, alcohol, stress, exercise &hypertension 60 day Reassessments:: Progressing Reassessment Notes & Comments:: Pt's BP's are within AHA normal limits on some days. Weight loss and a low sodium heart healthy diet encouraged. Will continue to monitor and report to pt's physician if necessary. Tobacco - 60-Day Tobacco Program Goals Tobacco Use: Non-smoker Gave Education Materials For:: Tobacco Triggers, Pulmonary Disease, Risk Factors, Breathing Techniques, Medical Compliance, Pulmonary A&P, Exacerbation Signs & Symptoms and Stress & Relaxation Exacerbation Mgmt & Airway Clearance Bronchial Hygiene Plan: Yes: Pt demonstrates correctly for effective cough, Yes: Pt demo correct for CPT, Yes: Pt demo correct for device, Yes: Pt demo correct for NS nasal spray, Yes: Pt demo correct for sputum management, Yes: Pt demo correct for improved hydration, Yes: Pt demo correct for hand hygiene, Yes: Pt demo correct for evalute sputum, Yes: Pt demo correct for verbalize when to call MD and Yes: Pt demo correct for cleaning of respiratory equipment Medication Medication reassessment: Yes: Pt demonstrates correct technique timing for MDI, Yes: Pt demonstrates correct technique timing for DPI, Yes: Pt demonstrates correct technique timing for NEB and Yes: Pt demonstrates correct technique timing for spacer Diabetes Diabetes:: No [employer]onents - 90 DAYS Visit Date of Eval: 01/31/25 Session Number:: 33 Hypertension Resting Blood Pressure:: 132/60 [employer] Hypertension Guidelines Peak Exercise Blood Pressure:: 162/70 Outcomes/Goals: Able to verbalize/achieve optimal blood pressure <130/80 and Incorporates diet changes & exercise for blood pressure control by DC Interventions/plan: Instruct on optimal blood pressure, hypertension & medications and Instruct on effects of sodium, alcohol, stress, exercise &hypertension 90 day Reassessments:: Progressing Reassessment Notes & Comments:: Pt's BP's are within AHA normal limits on some days. Weight loss and a low sodium heart healthy diet encouraged. Will continue to monitor and report to pt's physician if necessary. Tobacco - 90-Day Tobacco Program Goals Tobacco Use: Non-smoker Gave Education Materials For:: Tobacco Triggers, Pulmonary Disease, Risk Factors, Breathing Techniques, Medical Compliance, Pulmonary A&P, Exacerbation Signs & Symptoms and Stress & Relaxation Exacerbation Mgmt & Airway Clearance Reassessment: Demonstrates knowledge of O2 Rx at rest and Demonstrates knowledge of O2 Rx with exercise Bronchial Hygiene Plan: Yes: Pt demonstrates correctly for effective cough, Yes: Pt demo correct for CPT, Yes: Pt demo correct for device, Yes: Pt demo correct for NS nasal spray, Yes: Pt demo correct for sputum management, Yes: Pt demo correct for improved hydration, Yes: Pt demo correct for hand hygiene, Yes: Pt demo correct for evalute sputum, Yes: Pt demo correct for verbalize when to call MD and Yes: Pt demo correct for cleaning of respiratory equipment Medication Medication list reviewed:: Yes Taking medications 100% of the time:: Met (Pt takes meds as prescribed.) Medication reassessment: Yes: Pt demonstrates correct technique timing for MDI, Yes: Pt demonstrates correct technique timing for DPI, Yes: Pt demonstrates correct technique timing for NEB and Yes: Pt demonstrates correct technique t iming for spacer Diabetes Diabetes:: No Core Components - Final Visit Session Number:: 33 Hypertension Resting Blood Pressure:: 132/60 [employer] Hypertension Guidelines Peak Exercise Blood Pressure:: 162/70 Outcomes/Goals: Able to verbalize/achieve optimal blood pressure <130/80 and Incorporates diet changes & exercise for blood pressure control by DC Tobacco - Final Tobacco Program Goals Tobacco Use: Non-smoker Exacerbation Mgmt & Airway Clearance Bronchial Hygiene Plan: Yes: Pt demonstrates correctly for effective cough, Yes: Pt demo correct for CPT, Yes: Pt demo correct for device, Yes: Pt demo correct f or NS nasal spray, Yes: Pt demo correct for sputum management, Yes: Pt demo correct for improved hydration, Yes: Pt demo correct for hand hygiene, Yes: Pt demo correct for evalute sputum, Yes: Pt demo correct for verbalize when to call MD and Yes: Pt demo correct for cleaning of respiratory equipment Medication Medication reassessment: Yes: Pt demonstrates correct technique timing for MDI, Yes: Pt demonstrates correct technique timing for DPI, Yes: Pt demonstrates correct technique timing for NEB and Yes: Pt demonstrates correct technique timing for spacer Diabetes Diabetes:: No Knowledge Questionaire (BCKQ) Information Information: [place] COPD Knowledge Questionnaire (BCKQ) This questionnaire is designed to find out what you know about your lung problem. It should be completed without help form anyone else. This usually takes between 10 and 20 minutes. Your answers will help us to find out what information you need to help you to understand and manage your lung condition. Daniel the [place] which you think is the correct answer.
[2025-01-31 09:18] VITALS: BP 132/60; BP 162/70; O2SAT 98; BMI 39.9
== END 2025-03-01 23:59 ==
LOC: PR 13:00
PROVIDERS: PCP Family Medicine
DX: J44.89 Other specified chronic obstructive pulmonary disease (principal); J84.9 Interstitial pulmonary disease, unspecified; G47.33 Obstructive sleep apnea (adult) (pediatric)
CPT/HCPCS: 97150; G0239

== ENCOUNTER 2025-02-28 08:00 | Outpatient (RCR) | payer SELFPAY ==
[2025-01-31 09:18] VITALS: BMI 39.9
== END 2025-03-01 23:59 ==
LOC: PR 08:00
PROVIDERS: PCP Family Medicine
DX: Z00.00 Encounter for general adult medical examination without abnormal findings (principal)

== ENCOUNTER 2025-03-26 08:00 | Outpatient (RCR) | payer SELFPAY ==
[2025-02-11 11:11] VITALS: BMI 39.9
== END 2025-03-31 23:59 ==
LOC: PR 08:00
PROVIDERS: PCP Family Medicine
DX: Z00.00 Encounter for general adult medical examination without abnormal findings (principal)

== ENCOUNTER 2025-04-30 08:00 | Outpatient (RCR) | payer SELFPAY ==
[2025-02-11 11:11] VITALS: BMI 39.9
== END 2025-05-01 23:59 ==
LOC: PR 08:00
PROVIDERS: PCP Family Medicine
DX: Z00.00 Encounter for general adult medical examination without abnormal findings (principal)